=== PATIENT | male | born 1955 | race Caucasian/White ===

== ENCOUNTER 2017-03-30 19:43 | Inpatient (IN) | payer MEDICARE, BC ==
--- NOTE | 2017-03-30 21:24 | ED ---
General Adult HPI <Antonio Bhatti - Last Filed: 03/30/17 23:10> - General Source: patient, RN notes reviewed Mode of arrival: wheelchair Limitations: no limitations <Chuck Barker - Last Filed: 03/30/17 23:22> - General Chief complaint: Dizziness Stated complaint: Fall/double vision/left eye drooping Time Seen by Provider: 03/30/17 20:55 - History of Present Illness Initial comments: This is a 62-year-old male presents emergency Department with chief complaint of headache, dizziness and eye drooping. Patient states that he had an episode of dizziness for one week ago which she states he twisted his ankle but states it is not bothersome at this time. He complains of left-sided headache and states that his told him that his eye seems to be drooping on the left. Patient states that he has double vision at times he states he is looking at his truck earlier today and states he saw 2 of them. Patient states that he has multiple or abilities including renal failure with dialysis, diabetes, coronary disease, prior bypass with aortic valve replacement. Patient states she has no weakness of extremities. Patient states he did go to dialysis today. Patient has no history of CVA or TIA. (Chuck Barker) - Related Data Home Medications Medication Instructions Recorded Confirmed Atorvastatin Calcium [Lipitor] 20 mg PO HS 03/30/17 03/30/17 Carvedilol [Coreg] 12.5 mg PO BID 03/30/17 03/30/17 Cinacalcet [Sensipar] 30 mg PO HS 03/30/17 03/30/17 Clopidogrel [Plavix] 75 mg PO DAILY 03/30/17 03/30/17 Furosemide [Lasix] 40 mg PO DAILY 03/30/17 03/30/17 INSULIN LISPRO (For Pump) [humaLOG See Protocol SQ-PUMP CONTINUOUS 03/30/17 (For Pump)] Isosorbide Mononitrate [Isosorbide 60 mg PO DAILY 03/30/17 03/30/17 Mononitrate ER] Lisinopril [Zestril] 10 mg PO HS 03/30/17 03/30/17 Multivitamins, Thera [Multivitamin 1 tab PO DAILY 03/30/17 03/30/17 (formulary)] Ranolazine [Ranexa] 1,000 mg PO DAILY 03/30/17 03/30/17 Sevelamer [Renvela] 2,400 mg PO DAILY PRN 03/30/17 03/30/17 Sevelamer [Renvela] 3,200 mg PO AC-TID 03/30/17 03/30/17 Allergies Allergy/AdvReac Type Severity Reaction Status Date / Time Penicillins Allergy Unknown Verified 03/30/17 20:36 Childhood Review of Systems ROS Other: All systems not noted in ROS Statement are negative. <Antonio Bhatti - Last Filed: 03/30/17 23:10> ROS Other: All systems not noted in ROS Statement are negative. <Chuck Barker - Last Filed: 03/30/17 23:22> ROS Statement: Those systems with pertinent positive or pertinent negative responses have been documented in the HPI. Past Medical History Past Medical History: Diabetes Mellitus, Renal Disease History of Any Multi-Drug Resistant Organisms: None Reported Past Surgical History: Coronary Bypass/CABG Additional Past Surgical History / Comment(s): dialysis, heart valve replacement. Past Psychological History: No Psychological Hx Reported Smoking Status: Former smoker Past Alcohol Use History: None Reported Past Drug Use History: None Reported <Chuck Barker - Last Filed: 03/30/17 23:22> General Exam Limitations: no limitations General appearance: alert, in no apparent distress Head exam: Present: atraumatic, normocephalic, normal inspection Eye exam: Present: normal appearance, PERRL, EOMI, other (lateral gaze with occular movement when looking down). Absent: scleral icterus, conjunctival injection, periorbital swelling ENT exam: Present: normal exam, normal oropharynx, mucous membranes moist, TM's normal bilaterally Neck exam: Present: normal inspection, full ROM. Absent: tenderness, meningismus, lymphadenopathy Respiratory exam: Present: normal lung sounds bilaterally. Absent: respiratory distress, wheezes, rales, rhonchi, stridor Cardiovascular Exam: Present: regular rate, normal rhythm, normal heart sounds. Absent: systolic murmur, diastolic murmur, rubs, gallop, clicks GI/Abdominal exam: Present: soft, normal bowel sounds. Absent: distended, tenderness, guarding, rebound, rigid Neurological exam: Present: alert, oriented X3, CN II-XII intact, reflexes normal. Absent: motor sensory deficit Skin exam: Present: warm, dry, intact, normal color. Absent: rash <Chuck Barker - Last Filed: 03/30/17 23:22> EKG Findings - EKG Comments: EKG Findings:: EKG performed at 22:30 sinus rhythm with first-degree AV block, left axis deviation rate of 67 UT interval 242 QS duration 104 QT/QTC 410/433 <Chuck Barker - Last Filed: 03/30/17 23:22> Medical Decision Making - Lab Data Result diagrams: 03/30/17 21:20 03/30/17 21:20 <Antonio Bhatti - Last Filed: 03/30/17 23:10> - Lab Data Result diagrams: 03/30/17 21:20 03/30/17 21:20 <Chuck Barker - Last Filed: 03/30/17 23:22> - Medical Decision Making Patient reevaluated by myself, Dr. Bhatti. Patient had an episode of dizziness 1 week ago. Patient did have left-sided headache 3 days ago that has been moderate to severe. Patient started having blurred vision 2 days ago. Patient does have mild left eyelid droop on examination. Patient has difficulty with medial gaze of the left eye on examination. Computed tomography scan revealed no acute process. Case was discussed in detail with Dr. Ng from some physician who will admit for hospital call. He will come evaluate patient. ( Antonio Bhatti) - Lab Data Lab Results 03/30/17 03/30/17 03/30/17 Range/Units 21:20 21:20 21:20 WBC 4.2 (3.8-10.6) k/uL RBC 3.61 L (4.30-5.90) m/uL Hgb 11.4 L (13.0-17.5) gm/dL Hct 33.1 L (39.0-53.0) % MCV 91.8 (80.0-100.0) fL MCH 31.5 (25.0-35.0) pg MCHC 34.3 (31.0-37.0) g/dL RDW 15.0 (11.5-15.5) % Plt Count 108 L (150-450) k/uL Neutrophils % 63 % Lymphocytes % 23 % Monocytes % 6 % Eosinophils % 5 % Basophils % 0 % Neutrophils # 2.7 (1.3-7.7) k/uL Lymphocytes # 1.0 (1.0-4.8) k/uL Monocytes # 0.3 (0-1.0) k/uL Eosinophils # 0.2 (0-0.7) k/uL Basophils # 0.0 (0-0.2) k/uL Poikilocytosis Slight PT (9.0-12.0) sec INR (<1.2) APTT (22.0-30.0) sec Sodium 139 (137-145) mmol/L Potassium 3.9 (3.5-5.1) mmol/L Chloride 97 L (98-107) mmol/L Carbon Dioxide 31 H (22-30) mmol/L Anion Gap 11 mmol/L BUN 26 H (9-20) mg/dL Creatinine 4.60 H (0.66-1.25) mg/dL Est GFR (MDRD) Af Amer 16 (>60 ml/min/1.73 sqM) Est GFR (MDRD) Non-Af 13 (>60 ml/min/1.73 sqM) Glucose 222 H (74-99) mg/dL Calcium 10.0 (8.4-10.2) mg/dL Total Bilirubin 0.6 (0.2-1.3) mg/dL AST 21 (17-59) U/L ALT 30 (21-72) U/L Alkaline Phosphatase 107 (38-126) U/L Total Creatine Kinase 105 (55-170) U/L CK-MB (CK-2) 2.4 (0.0-2.4) ng/mL CK-MB (CK-2) Rel Index 2.3 Total Protein 6.1 L (6.3-8.2) g/dL Albumin 3.7 (3.5-5.0) g/dL 03/30/17 Range/Units 21:20 WBC (3.8-10.6) k/uL RBC (4.30-5.90) m/uL Hgb (13.0-17.5) gm/dL Hct (39.0-53.0) % MCV (80.0-100.0) fL MCH (25.0-35.0) pg MCHC (31.0-37.0) g/dL RDW (11.5-15.5) % Plt Count (150-450) k/uL Neutrophils % % Lymphocytes % % Monocytes % % Eosinophils % % Basophils % % Neutrophils # (1.3-7.7) k/uL Lymphocytes # (1.0-4.8) k/uL Monocytes # (0-1.0) k/uL Eosinophils # (0-0.7) k/uL Basophils # (0-0.2) k/uL Poikilocytosis PT 10.5 (9.0-12.0) sec INR 1.0 (<1.2) APTT 23.5 (22.0-30.0) sec Sodium (137-145) mmol/L Potassium (3.5-5.1) mmol/L Chloride (98-107) mmol/L Carbon Dioxide (22-30) mmol/L Anion Gap mmol/L BUN (9-20) mg/dL Creatinine (0.66-1.25) mg/dL Est GFR (MDRD) Af Amer (>60 ml/min/1.73 sqM) Est GFR (MDRD) Non-Af (>60 ml/min/1.73 sqM) Glucose (74-99) mg/dL Calcium (8.4-10.2) mg/dL Total Bilirubin (0.2-1.3) mg/dL AST (17-59) U/L ALT (21-72) U/L Alkaline Phosphatase (38-126) U/L Total Creatine Kinase (55-170) U/L CK-MB (CK-2) (0.0-2.4) ng/mL CK-MB (CK-2) Rel Index Total Protein (6.3-8.2) g/dL Albumin (3.5-5.0) g/dL Disposition <Antonio Bhatti - Last Filed: 03/30/17 23:10> <Chuck Barker - Last Filed: 03/30/17 23:22> Clinical Impression: Ocular palsy of left eye, Headache, Dizziness Disposition: ADMITTED IP TO THIS [facility] Condition: Fair Referrals: Nonstaff,Physician [Primary Care Provider] - 1-2 days
[2017-03-30 21:55] LABS: Basophils % (A) 0 %; CH 32.6; CHCM 35.7; Eosinophils # (A) 0.2 k/uL (0-0.7); Eosinophils % (A) 5 %; HCT 33.1 % (39.0-53.0); HDW 3.59; HGB 11.4 gm/dL (13.0-17.5); Luc # (Auto) 0.09; Luc % (Auto) 2; Lymphocytes % (A) 23 %; MCH 31.5 pg (25.0-35.0); MCHC 34.3 g/dL (31.0-37.0); MCV 91.8 fL (80.0-100.0); Mean Platelet Volume 7.5; Monocytes # (A) 0.3 k/uL (0-1.0); Monocytes % (A) 6 %; Neutrophils # (A) 2.7 k/uL (1.3-7.7); Neutrophils % (A) 63 %; Poikilocytosis Slight; RBC 3.61 m/uL (4.30-5.90); WBC 4.2 k/uL (3.8-10.6); WBC (Perox) 4.28
[2017-03-30 22:04] LABS: Partial Thromboplastin Time 23.5 sec (22.0-30.0); Prothrombin Time 10.5 sec (9.0-12.0)
--- NOTE | 2017-03-30 22:04 | CT ---
EXAMINATION TYPE: CT brain wo con DATE OF EXAM: 03/30/2017 COMPARISON: NONE HISTORY: Unsteady gait, double vision to left eye and left eye swelling x 3 days[address] No known injury. CT DLP: 1061.30 mGycm Automated exposure control for dose reduction was used. FINDINGS: Ventricles have normal size. There is no mass effect nor midline shift. There is no sign of intracran ial hemorrhage. The calvarium is intact. There is significant calcification in the carotid arteries. IMPRESSION: MILD ATROPHY. OTHERWISE NEGATIVE CT SCAN OF THE BRAIN. NO EVIDENCE OF AN ORBITAL MASS. THERE IS CALCI FICATION IN THE SUBCUTANEOUS TISSUES CONSISTENT WITH SIGNIFICANT ATHEROSCLEROTIC VASCULAR DISEASE.
--- NOTE | 2017-03-30 22:05 | XR ---
EXAMINATION TYPE: XR chest 2V DATE OF EXAM: 03/30/2017 COMPARISON: NONE HISTORY: Altered mental status TECHNIQUE: Frontal and lateral views of the chest are obtained. FINDINGS: There is no heart failure nor confluent pneumonic infiltrate. Costophrenic angles are stu r. Thoracic aorta is atheromatous. IMPRESSION: No active cardiopulmonary disease. Atheromatous aorta.
[2017-03-30] MEDS ORDERED: ONDANSETRON 4 MG/2 ML VIAL IVP STA (22:09)
[2017-03-30] MEDS ORDERED: MORPHINE SULFATE 2 MG/ML SYRINGE IVP ONE (22:09)
[2017-03-30] MEDS ORDERED: RX INFO: IV CONTRAST WAS GIVEN 1 EACH MISC MISCELLANE PRN (22:09)
[2017-03-30 22:37] LABS: Potassium 3.9 mmol/L (3.5-5.1); Total Bilirubin 0.6 mg/dL (0.2-1.3); Total Protein 6.1 g/dL (6.3-8.2)
[2017-03-30 22:45] LABS: Creatine Kinase MB 2.4 ng/mL (0.0-2.4)
[2017-03-30] MEDS ORDERED: NALOXONE 0.4 MG/ML 1 ML VIAL IV PRN (23:22)
[2017-03-31] MEDS: MORPHINE SULFATE 2 MG/ML SYRINGE IVP PRN ×6 (00:19→23:47)
--- NOTE | 2017-03-31 00:21 | P.HPIM ---
History of Present Illness H&P Date: 03/30/17 Chief Complaint: headache This patient is 62 years old male with significant history of end-stage renal disease on hemodialysis, the patient came to the emergency room complaining of 3 days history of headaches he points to the left temporal region, and if his pressure behind the L eye, associated also with dizziness in fact the dizziness started prior according to his about 2 weeks ago last week he had a fall on his porch he denies any head trauma but soon after that he started developing the symptoms Review of Systems Constitutional: Patient reports no fever, no chills, no weight changes, no change in appetite Eyes: Patient reports double vision IN left eye, no visual changes, some drooping noted ENT: Patient reports no rhinorrhea, no post nasal drip, no sore throat Cardiovascular: Patient reports no chest, no edema, no palpitations, has syncope last week no orthopnea, no paroxysmal nocturnal dyspnea. Respiratory: Patient reports no dyspnea, no cough, no wheeze Gastrointestinal: Patient reports no nausea, no vomiting, no constipation, no diarrhea Genitourinary: Patient reports no dysuria, no urinary frequency, no hematuria. Musculoskeletal: Patient reports no unusual joint pain, no joint swelling or weakness. Patient reports no muscular pain. Psychiatric: Patient reports no changes in mood, no sleeping problems. Patient reports no changes in memory. Endocrine: Patient reports no thirst, no polyuria, no cold intolerance, no heat intolerance. Neurological: Patient reports no unusual paresthesias, no seizures, no paresis , no paralysis, has peristent headache. Heme/Lymphatic: Patient reports no easy bruising, no bleeding tendency, no lymphadenopathy. Allergic/ Immunologic: Patient reports no recent allergic reactions or immunologic history. Skin: Patient reports no rashes or unusual lesions. Past Medical History Past Medical History: Coronary Artery Disease (CAD), Diabetes Mellitus, Hypertension, Renal Disease Additional Past Medical History / Comment(s): ESRD ON HD MWF History of Any Multi-Drug Resistant Organisms: None Reported Past Surgical History: Coronary Bypass/CABG Additional Past Surgical History / Comment(s): AVF , heart valve replacement. Past Psychological History: No Psychological Hx Reported Smoking Status: Former smoker Past Alcohol Use History: None Reported Past Drug Use History: None Reported Medications and Allergies Home Medications Medication Instructions Recorded Confirmed Type Atorvastatin Calcium [Lipitor] 20 mg PO HS 03/30/17 03/30/17 History Carvedilol [Coreg] 12.5 mg PO BID 03/30/17 03/30/17 History Cinacalcet [Sensipar] 30 mg PO HS 03/30/17 03/30/17 History Clopidogrel [Plavix] 75 mg PO DAILY 03/30/17 03/30/17 History Furosemide [Lasix] 40 mg PO DAILY 03/30/17 03/30/17 History INSULIN LISPRO (For Pump) [humaLOG See Protocol SQ-PUMP CONTINUOUS 03/30/17 History (For Pump)] Isosorbide Mononitrate [Isosorbide 60 mg PO DAILY 03/30/17 03/30/17 History Mononitrate ER] Lisinopril [Zestril] 10 mg PO HS 03/30/17 03/30/17 History Multivitamins, Thera [Multivitamin 1 tab PO DAILY 03/30/17 03/30/17 History (formulary)] Ranolazine [Ranexa] 1,000 mg PO DAILY 03/30/17 03/30/17 History Sevelamer [Renvela] 2,400 mg PO DAILY PRN 03/30/17 03/30/17 History Sevelamer [Renvela] 3,200 mg PO AC-TID 03/30/17 03/30/17 History Allergies Allergy/AdvReac Type Severity Reaction Status Date / Time Penicillins Allergy Unknown Verified 03/30/17 20:36 Childhood Physical Exam Vitals: Vital Signs Temp Pulse Resp BP Pulse Ox 03/30/17 23:24 69 16 169/69 96 03/30/17 22:25 70 20 156/71 96 03/30/17 19:56 99.3 F 76 18 173/74 98 Intake and Output 03/30/17 03/30/17 03/31/17 14:59 22:59 06:59 Other: Weight 99.79 kg Patient Weight 03/31/17 06:59 Weight 99.79 kg - Constitutional General appearance: average body habitus, mild distress - EENT Eyes: no EOMI, no photophobia, ptosis Ears: bilateral: normal - Neck Neck: no normal ROM Carotids: bilateral: upstroke normal Thyroid: bilateral: normal size - Respiratory Respiratory: bilateral: CTA, rales, rhonchi, wheezing - Cardiovascular Rhythm: regular Heart sounds: normal: S1, S2 Abnormal Heart Sounds: S3 Gallop, S4 Gallop - Gastrointestinal General gastrointestinal: no distended, normal bowel sounds, no rigid, soft, no tenderness - Integumentary Integumentary: no cyanotic, no flushed, no jaundiced, normal - Musculoskeletal Musculoskeletal: gait normal, strength equal bilaterally - Psychiatric Psychiatric: A&O x's 3, appropriate affect, intact judgment & insight (3D CN palsy otherwise non focal ) Results CBC & Chem 7: 03/30/17 21:20 03/30/17 21:20 Labs: Abnormal Lab Results - Last 24 Hours (Table) 03/30/17 03/30/17 03/30/17 Range/Units 21:20 21:20 21:20 RBC 3.61 L (4.30-5.90) m/uL Hgb 11.4 L (13.0-17.5) gm/dL Hct 33.1 L (39.0-53.0) % Plt Count 108 L (150-450) k/uL Chloride 97 L (98-107) mmol/L Carbon Dioxide 31 H (22-30) mmol/L BUN 26 H (9-20) mg/dL Creatinine 4.60 H (0.66-1.25) mg/dL Glucose 222 H (74-99) mg/dL Troponin I 0.085 H* (0.000-0.034) ng/mL Total Protein 6.1 L (6.3-8.2) g/dL CT Scan - head: report reviewed Assessment and Plan (1) Headache Narrative/Plan: Likely part of postconcussion headaches will treat with IV Dilaudid due to poor control with oral agents counseled the patient Status: Acute (2) Ocular palsy of left eye Narrative/Plan: I WILL obtain neurology consultation and ordered MRI Status: Acute (3) Dizziness Narrative/Plan: Also possible postconcussion syndrome however in view of the neurological findings MRI is needed to rule out posterior fossa stroke Status: Acute (4) ESRD (end stage renal disease) on dialysis Narrative/Plan: End-stage renal disease is chronic is on dialysis Sunday will consult nephrology the patient has his dialysis day Status: Acute (5) Diabetes mellitus Narrative/Plan: We'll continue patient's insulin pump monitor his sugars Status: Acute Time with Patient: Greater than 30
[2017-03-31 01:44] VITALS: BMI 32.5
[2017-03-31] MEDS ORDERED: INSULIN LISPRO (humaLOG) 300 UNIT/3 ML VIAL SQ PRN (05:57)
[2017-03-31] MEDS ORDERED: INSPUCOR MISCELLANE PRN (05:57)
[2017-03-31] MEDS ORDERED: INSULIN PUMP BASAL RATES 1 EACH MISC MISCELLANE PRN (05:57)
[2017-03-31 06:13] LABS: Glucose,Whole Blood 180 mg/dL (75-99)
[2017-03-31] MEDS: CARVEDILOL 12.5 MG TAB PO SCH ×2 (06:27→17:30)
[2017-03-31] MEDS: SEVELAMER 800 MG TAB PO SCH ×3 (06:27→17:30)
[2017-03-31] MEDS: CLOPIDOGREL 75 MG TAB PO SCH (07:52)
[2017-03-31] MEDS: ISOSORBIDE MONONITRATE ER 60 MG TAB.ER.24H PO SCH (07:52)
[2017-03-31] MEDS: MULTIVITAMINS, THERA 1 EACH TAB PO SCH (07:52)
[2017-03-31] MEDS: FUROSEMIDE 40 MG TAB PO SCH (07:52)
[2017-03-31] MEDS: RANOLAZINE 500 MG TAB.ER.12H PO SCH (07:52)
[2017-03-31 14:27] LABS: Hemoglobin A1C 6.1 % (4.2-6.1)
--- NOTE | 2017-03-31 16:58 | P.PN ---
Subjective Principal diagnosis: headache Patient is a 62-year-old male with a history of type 1 diabetes mellitus, end-stage renal disease, and hypertension who presented with complaints of left eye drooping and headache. Patient states that his left eye started drooping several days ago. He states he has always had a lazy left eye. He complains of double vision in that left eye. He describes his pain as an outward pressure behind his eye. He denies any nausea, vomiting, or chest pain. His headache pain is improved with morphine. Objective - Vital Signs Vital signs: Vital Signs Temp 97.3 F L 03/31/17 15:58 Pulse 68 03/31/17 15:58 Resp 16 03/31/17 15:58 BP 119/58 03/31/17 15:58 Pulse Ox 97 03/31/17 15:58 Intake & Output 03/30/17 03/31/17 03/31/17 18:59 06:59 18:59 Intake Total 420 Output Total 200 Balance -200 420 Weight 101.3 kg Intake: Oral 420 Output: Urine 200 Other: Voiding Method Urinal Urinal # Voids 0 # Bowel Movements 0 - Exam General: non toxic, no distress, appears at stated age Derm: no rashes, no lesions Head: atraumatic, normocephalic, symmetric Eyes: Pupils equal round reactive to light, left eye with disconjugate gaze- unable to fully adduct the eye, ptosis of the left eye Eyes: EOMI, no lid lag, anicteric sclera ENT: no post nasal drip, no thrush Mouth: no lip lesion, mucus membranes moist Cardiovascular: S1S2 reg, no murmur, positive posterior tibial pulse bilateral, Lungs: CTA bilateral, no rhonchi, no rales , no accessory muscle use Abdominal: soft, nontender to palpation, no guarding, no appreciable organomegaly Ext: no gross muscle atrophy, no edema, no contractures Neuro: CN II-XI grossly intact, no focal neuro deficits Psych: Alert, oriented, appropriate affect - Labs CBC & Chem 7: 03/30/17 21:20 03/30/17 21:20 Labs: Abnormal Lab Results - Last 24 Hours (Table) 03/30/17 03/30/17 03/30/17 Range/Units 21:20 21:20 21:20 RBC 3.61 L (4.30-5.90) m/uL Hgb 11.4 L (13.0-17.5) gm/dL Hct 33.1 L (39.0-53.0) % Plt Count 108 L (150-450) k/uL ESR (0-15) mm/hr Chloride 97 L (98-107) mmol/L Carbon Dioxide 31 H (22-30) mmol/L BUN 26 H (9-20) mg/dL Creatinine 4.60 H (0.66-1.25) mg/dL Glucose 222 H (74-99) mg/dL POC Glucose (mg/dL) (75-99) mg/dL Troponin I 0.085 H* (0.000-0.034) ng/mL C-Reactive Protein (<10.0) mg/L Total Protein 6.1 L (6.3-8.2) g/dL 03/31/17 03/31/17 03/31/17 Range/Units 06:10 10:06 10:07 RBC (4.30-5.90) m/uL Hgb (13.0-17.5) gm/dL Hct (39.0-53.0) % Plt Count (150-450) k/uL ESR 30 H (0-15) mm/hr Chloride (98-107) mmol/L Carbon Dioxide (22-30) mmol/L BUN (9-20) mg/dL Creatinine (0.66-1.25) mg/dL Glucose (74-99) mg/dL POC Glucose (mg/dL) 180 H (75-99) mg/dL Troponin I (0.000-0.034) ng/mL C-Reactive Protein 13.3 H (<10.0) mg/L Total Protein (6.3-8.2) g/dL Assessment and Plan Plan: #Left third cranial nerve palsy-CT brain is negative, attempted to get MRI brain but this was not performed today, will consult nephrology and plan for CT head with and without contrast, will ask ophthalmology to evaluate patient. ESR and CRP elevated but no meningeal signs, or signs of infection. #End-stage renal disease on hemodialysis-consult nephrology #Diabetes mellitus [id number] home insulin pump #Coronary artery disease-continue statin, #Hypertension, controlled-continue current regimen, follow blood pressures DVT prophylaxis: Early ambulation Discussed with: Patient , Nursing Anticipated discharge: 24-[address]: home A total of 35 minutes was spent on the care of this complex patient more than 50 % of the time was spent in counseling and care coordination.
[2017-03-31 17:09] LABS: Glucose,Whole Blood 144 mg/dL (75-99)
[2017-03-31] MEDS ORDERED: RX INFO: IV CONTRAST WAS GIVEN 1 EACH MISC MISCELLANE PRN (17:38)
[2017-03-31] MEDS: CINACALCET 30 MG TAB PO SCH (19:54)
[2017-03-31] MEDS: ONDANSETRON 4 MG/2 ML VIAL IVP PRN (19:54)
[2017-03-31] MEDS: LISINOPRIL 10 MG TAB PO SCH (19:54)
[2017-03-31] MEDS: ATORVASTATIN 20 MG TAB PO SCH (19:54)
--- NOTE | 2017-03-31 20:28 | CT ---
EXAMINATION TYPE: CT orbits wo con DATE OF EXAM: 03/31/2017 COMPARISON: CT brain 03/30/2017 HISTORY: Left sided eye swelling and visual disturbance CT DLP: 410.1 mGycm Automated exposure control for dose reduction was used. FINDINGS: Note is made of a low-density elliptical area within the left temporal region. Series 9 image 41. Thi s is low density in the range of -80 is likely a small lipoma. Significant skin thickening is not identified. No suspicious collections are identified. The globes are symmetrical. Extraocular muscles are normal. Cranial nerve appears normal. Intraconal and extraconal fat is unremarkable. No subcutaneous abnormal collection is evident. Sella and suprasellar region is visualized appears no rmal. Paranasal sinuses are clear. Optic chiasm appears unremarkable on these images. Real-time observation was performed at the time of acquisition. Images were reviewed with the referri ng physician. The case was discussed. If symptoms should worsen or clinical finding should change, co ntrast study or MRI could be performed. IMPRESSION: NO SUSPICIOUS POST SEPTAL CELLULITIS EVIDENT. NO ABSCESS FORMATION IS IDENTIFIED.
--- NOTE | 2017-03-31 20:48 | P.CON ---
Consult Note - . Consult date: 03/31/17 Assessment/Plan:: 62 y/o male with a history of amblyopia left eye, who began having symptoms of poorer than normal vision on presentation to the ER. There was associated discomfort in the left temporal region and above the left eye. He had noticed a moderate ptosis of the left lid as well. This insulin dependent diabetic ( A-1- C 5.8) states he had some patching as a child, but denies surgery. He also denies any hidden infections in the past. There was apparently a history of cardiac valve surgery which was associate with a significant infection. He had an eye examination 1 month ago which was unremarkable, but required an adjustment ~ 1 month after receiving new glasses. There was no noted problem with eyelid at that time. He is a hypermetropic patient with a heavy correction , but admits limited vision in the left eye. He also states he's had laser surgery for diabetes, but cannot recall in which eye. He has had some scatter laser treatment, 4 years ago. Va w/ correction 20/20 OD, 20/200 +1 OS using near card. Pupils: no APD, normal direct and consensual response CF: normal EOM: left XT ~ 30 PD. however there is full movement on ductions on each eye. ( can cross the midline, left ) External: ptosis noted left eye, normal right. Mild erythema left eye with tenderness, without focal lesion. Lid fissures 10 mm OD, 7 mm OS MRD: +5 mm OD, +1 mm OS Levator: 18 mm OD, 17 mm OS Corneal: clear OU AC: D&Q OU Iris: no pathology, OU round lens: trace NS Vit: clear optic nerve: S/F P C:D 0.40 OD, O.50 OS Mac: +FLR with scattered NPDR changes and no CME noted OU. 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 There is a moderate tenderness in the eyelid area, but does not demonstrate at this time an outright 3rd nerve palsy. There is full movement without evidence of restriction, no APD, no field loss. P: recommend starting on IV antibiotic moxifloxacin, assuming this is a preseptal cellulitis and monitor progress. Will follow along while in hospital.
[2017-03-31 21:01] LABS: Glucose,Whole Blood 140 mg/dL (75-99)
[2017-03-31] MEDS: LEVOFLOXACIN 500MG-D5W PMX 500 MG in DEXTROSE/WATER 1 100ML.BAG IVPB SCH (23:47)
[2017-04-01 06:03] LABS: Glucose,Whole Blood 180 mg/dL (75-99)
[2017-04-01] MEDS: SEVELAMER 800 MG TAB PO SCH ×3 (06:42→18:10)
[2017-04-01] MEDS: CARVEDILOL 12.5 MG TAB PO SCH ×2 (06:42→18:10)
[2017-04-01] MEDS: MULTIVITAMINS, THERA 1 EACH TAB PO SCH (08:14)
[2017-04-01] MEDS: MORPHINE SULFATE 2 MG/ML SYRINGE IVP PRN ×4 (08:14→20:13)
[2017-04-01] MEDS: CLOPIDOGREL 75 MG TAB PO SCH (08:14)
[2017-04-01] MEDS: ISOSORBIDE MONONITRATE ER 60 MG TAB.ER.24H PO SCH (08:14)
[2017-04-01] MEDS: FUROSEMIDE 40 MG TAB PO SCH (08:14)
[2017-04-01] MEDS: RANOLAZINE 500 MG TAB.ER.12H PO SCH (08:14)
--- NOTE | 2017-04-01 09:21 | CONS ---
REASON FOR CONSULTATION: End stage renal disease. HISTORY OF PRESENT ILLNESS: The patient is a 62-year-old male with history of end stage renal disease for about five years on hemodialysis at the [facility] on a Sunday, Sunday, Sunday schedule. The patient was admitted to the hospital with history of double vision and pain in his left eye and severe headache behind the eye which had been doing on for about a week or so. The patient stated that he had double vision and he still continued to drive to the dialysis unit. The headache got extremely worse and that is why he came into the hospital. The patient has been evaluated by ophthalmology and neurology. He is scheduled for an MRI tomorrow. He is started on IV antibiotics for preseptal cellulitis. The patient did have CT of his head and orbits which shows no abscess formation. Currently the headache is controlled with morphine. PAST MEDICAL HISTORY: Hypertension, end stage renal disease, CKD bone mineral disorder, Type 2 diabetes, coronary artery disease, valvular heart disease. Past surgical history: Aortic valve replacement, AV fistula. Coronary artery bypass surgery. SOCIAL HISTORY: The patient is a former smoker. No history of drug abuse or alcohol use. REVIEW OF SYSTEMS: As per HPI. Other systems negative. There is no history of fever, nausea or vomiting. On examination, the patient is currently comfortable, awake, alert and oriented times three. HEENT shows left eye is currently closed. There is some tenderness around the eye. No discharge is noted. No significant erythema is noted. Examination of the heart S1, S2. Examination of the lungs bilateral breath sounds are heard. Abdomen soft, nontender. Examination of the lower extremities shows trace edema bilaterally. DOCTOR PODIATRIC MEDICINE: Otherwise grossly intact. The patient does have double vision on looking far on the left eye. Labs show C-reactive protein 13.3, potassium 3.9, sodium 139, hemoglobin 11.4. ASSESSMENT: 1. End stage renal disease on hemodialysis on a Sunday, Sunday, Sunday scheduled via right arm AV fistula. The patient will be dialyzed tomorrow after his MRI. 2. Left sided headache with severe pain and diplopia in the left eye currently maintained on antibiotics and scheduled for MRI which will be done tomorrow. No cavernous sinus thrombosis noted on the CT scan of the orbits. 3. Diabetes. 4. Coronary artery disease status post coronary artery bypass surgery. 5. Chronic kidney disease bone mineral disorder. 6. Valvular heart disease status post aortic valve replacement. PLAN: Hemodialysis tomorrow after the MRI. Continue pain control and IV antibiotics. Thank you for this consultation. I will continue to follow the patient with you during this hospitalization. AISHA
[2017-04-01] MEDS: ONDANSETRON 4 MG/2 ML VIAL IVP PRN ×2 (11:19→22:44)
--- NOTE | 2017-04-01 11:35 | P.CON ---
Consult Note - . Consult date: 04/01/17 Assessment/Plan:: 62 y/o male with diplopia and ptotic eyelid left side. Has received 1 does of levofloxacin ~12 hours ago so far without relief. He continues to have pain on left side of head ~ 8/10 crescendoing to "10.5" /10. CT no revealing anything at this stage. awaiting MRI tomorrow. Va w/correction 20/20 OD, 20/40+3 OS EOM left XT full ROM, no nystagmus noted CF full OU Pupils no APD IOP 12 mm Hg OD, 15 mm Hg OS Ext mild left eylid swelling faint erythema? with ptosis some focal tenderness in the upper outer quadrant with palpation, no focality noted Con white/quiet Cornea Clear AC clear A: Preseptal cellulitis/ptosis presumptive on antibiotics without any noted relief at this time Diplopia without subject without nystagmus, and subjectively denies dizziness , continues to experience pain on left side. No focal neurological signs noted. P: awaiting MRI should reveal more information than the limited CT's recently performed. Will continue to follow.
[2017-04-01 12:31] LABS: Glucose,Whole Blood 165 mg/dL (75-99)
--- NOTE | 2017-04-01 12:31 | P.CNNES ---
History of Present Illness Consult date: 03/31/17 Reason for Consult: Patient admitted with ocular nerve impairment and left eye swelling. History of Present Illness: This patient is a 62-year-old right-handed white male who was in his usual state of health until a few days ago. Patient states that 3 days back prior to his admission to hospital he had developed some diplopia and left-sided headache pain. Patient has a rather complex past medical history which includes end-stage renal disease for which she is on hemodialysis. He also has diabetes mellitus and coronary artery bypass grafting history. The patient states his symptoms began about 3 days ago. He was having double vision that seem to wax and wane. He underwent GI exam about a month ago and had a normal exam at that time. Patient also states that he underwent a aortic valve replacement about a year ago at [facility]. He also has undergone 2 vessel CABG and since that surgery has been taking combination Plavix and aspirin. Due to his 3 day history of headache pain he decided to come to the emergency room at [facility] for further evaluation. He was seen in the ER by physician assistant golf course superintendent Chuck Barker who ordered a computed tomography scan of the brain. The patient was noted to have left eye ocular muscle weakness. CAT scan of the brain to monitor in this light revealed mild atrophy. CAT scan was negative for any acute stroke or hemorrhage. There was no evidence for an orbital mass involving the orbits. The patient essentially admitted to the hospital. He continues to have left-sided headache pain. This is mostly in the bitemporal area. He underwent some laboratory testing and his sedimentation rate was 30.0. His CRP is 13.3. He also has a history of underlying diabetes mellitus and his hemoglobin A1c on admission was 6.1. Patient continues to have mostly mild to moderate degree of headache pain. He is currently being treated symptomatically with Dilaudid. Patient was seen on ophthalmology consultation with Dr. Live today. Dr. Live's findings indicate a left preseptal cellulitis. There was moderate degree of tenderness in the left eyelid area. Patient did not demonstrate third nerve palsy on his examination. There was no evidence of APD or field loss. The patient was started on IV antibiotic therapy with moxifloxacin. He will require close ophthalmological follow-up. The patient states he is on end-stage renal disease dialysis treatment. He undergoes dialysis 3 days a week. He states his diabetes has been under fairly good control. His hemoglobin A1c on admission was 6.1. The patient states his headaches have improved since admission to the hospital. Due to his complex history and multiple medical findings he is now admitted to the hospital for further evaluation. Neurology has been consulted for further evaluation and recommendations. Review of Systems Constitutional: Denies chills, Denies fever Eyes: denies blurred vision, denies pain Ears, nose, mouth and throat: Denies headache, Denies sore throat Cardiovascular: Denies chest pain, Denies shortness of breath Respiratory: Denies cough Gastrointestinal: Denies abdominal pain, Denies diarrhea, Denies nausea, Denies vomiting Musculoskeletal: Denies myalgias Integumentary: Denies pruritus, Denies rash Neurological: Denies numbness, Denies weakness Psychiatric: Denies anxiety, Denies depression Endocrine: Denies fatigue, Denies weight change Past Medical History Past Medical History: Coronary Artery Disease (CAD), Heart Failure, Diabetes Mellitus, Deep Vein Thrombosis (DVT), Hypertension, Renal Disease, Thyroid Disorder Additional Past Medical History / Comment(s): ESRD ON HD MWF History of Any Multi-Drug Resistant Organisms: None Reported Past Surgical History: Coronary Bypass/CABG Additional Past Surgical History / Comment(s): AVF , Aortic Valve replacement ( [place]), 2 CABG total 2 vessel each time. Past Anesthesia/Blood Transfusion Reactions: No Reported Reaction Past Psychological History: No Psychological Hx Reported Smoking Status: Former smoker Past Alcohol Use History: None Reported Past Drug Use History: None Reported - Past Family History Mother Family Medical History: Coronary Artery Disease (CAD), Myocardial Infarction (CT ), Renal Disease Medications and Allergies Home Medications Medication Instructions Recorded Confirmed Type Atorvastatin Calcium [Lipitor] 20 mg PO HS 03/30/17 03/30/17 History Carvedilol [Coreg] 12.5 mg PO BID 03/30/17 03/30/17 History Cinacalcet [Sensipar] 30 mg PO HS 03/30/17 03/30/17 History Clopidogrel [Plavix] 75 mg PO DAILY 03/30/17 03/30/17 History Furosemide [Lasix] 40 mg PO DAILY 03/30/17 03/30/17 History INSULIN LISPRO (For Pump) [humaLOG See Protocol SQ-PUMP CONTINUOUS 03/30/17 History (For Pump)] Isosorbide Mononitrate [Isosorbide 60 mg PO DAILY 03/30/17 03/30/17 History Mononitrate ER] Lisinopril [Zestril] 10 mg PO HS 03/30/17 03/30/17 History Multivitamins, Thera [Multivitamin 1 tab PO DAILY 03/30/17 03/30/17 History (formulary)] Ranolazine [Ranexa] 1,000 mg PO DAILY 03/30/17 03/30/17 History Sevelamer [Renvela] 2,400 mg PO DAILY PRN 03/30/17 03/30/17 History Sevelamer [Renvela] 3,200 mg PO AC-TID 03/30/17 03/30/17 History Allergies Allergy/AdvReac Type Severity Reaction Status Date / Time Penicillins Allergy Unknown Verified 03/30/17 20:36 Childhood Physical Examination - Vital Signs Vital Signs: Vital Signs Temp Pulse Pulse Resp BP BP Pulse Ox 03/31/17 07:54 97.5 F L 64 16 120/57 96 03/31/17 04:00 98.4 F 78 18 132/61 96 03/31/17 01:10 96.9 F L 72 18 130/61 95 03/31/17 00:05 78 20 168/77 03/30/17 23:24 69 16 169/69 96 03/30/17 22:25 70 20 156/71 96 03/30/17 19:56 99.3 F 76 18 173/74 98 Intake and Output 03/30/17 03/31/17 03/31/17 22:59 06:59 14:59 Output Total 200 Balance -200 Output: Urine 200 Other: Voiding Method Urinal Weight 99.79 kg 101.3 kg - Constitutional General appearance: average body habitus, cooperative - EENT EENT: PERRL, mucous membranes moist - Respiratory Respiratory: lungs clear, normal breath sounds - Cardiovascular Cardiovascular: regular rate, normal S1, normal S2 Extremities: no peripheral edema bilaterally - Gastrointestinal Gastrointestinal: normoactive bowel sounds - Integumentary Integumentary: normal - Neurologic Cranial nerve examination: PERRL, VFF, V1/V2/V3 grossly intact, face symmetric, intact gag reflex, intact corneal reflex, normal palatal elevation Speech examination: intact Sensorimotor examination: intact Motor examination - right side: 4/5: biceps, triceps, wrist flexion, wrist extension, button breaker operator, hip flexors, knee extensors, dorsiflexion, toe extension (EHL) , plantarflexion Motor examination - left side: 4/5: biceps, triceps, wrist flexion, wrist extension, button breaker operator, hip flexors, knee extensors, dorsiflexion, toe extension (EHL) , plantarflexion Detailed sensory examination: intact Reflex and gait examination: intact Reflexes: 1+: ankle, bicep, knee, tricep - Musculoskeletal Musculoskeletal: no pain - Psychiatric Psychiatric: mood/affect appropriate, cooperative Results - Laboratory Findings CBC and BMP: 03/30/17 21:20 03/30/17 21:20 Abnormal Lab Findings: Abnormal Labs 03/30/17 03/30/17 03/30/17 21:20 21:20 21:20 RBC 3.61 L Hgb 11.4 L Hct 33.1 L Plt Count 108 L Chloride 97 L Carbon Dioxide 31 H BUN 26 H Creatinine 4.60 H Glucose 222 H POC Glucose (mg/dL) Troponin I 0.085 H* Total Protein 6.1 L 03/31/17 06:10 RBC Hgb Hct Plt Count Chloride Carbon Dioxide BUN Creatinine Glucose POC Glucose (mg/dL) 180 H Troponin I Total Protein Assessment and Plan (1) Ocular motor apraxia syndrome Status: Acute Code(s): H51.8 - OTHER SPECIFIED DISORDERS OF BINOCULAR MOVEMENT (2) Dizziness Status: Acute Code(s): R42 - DIZZINESS AND GIDDINESS (3) ESRD (end stage renal disease) on dialysis Status: Acute Code(s): N18.6 - END STAGE RENAL DISEASE; Z99.2 - DEPENDENCE ON RENAL DIALYSIS (4) Headache Status: Acute Code(s): R51 - HEADACHE Plan: This patient is a 62-year-old right-handed white male who was admitted to Hospital with symptoms of headache and visual disturbance. Patient remembers having sustained a fall 2 weeks ago following which she had recurrent symptoms of dizziness. He was brought into the emergency room for further evaluation of recurrent bitemporal headache pain. He was seen in the ER by physician assistant golf course superintendent Chuck Barker. Who ordered a computed tomography scan of the brain. CAT scan of the brain revealed mild atrophy with no evidence of orbital mass. Patient was noted by the ER physician to have some disconjugate eye movements. Mostly it was involving his left eye. Apparently he had an eye exam a month ago which was unremarkable. He did require some new glasses. The patient states he was having double vision as well as dizziness. He does have a history of coronary artery bypass surgery several years ago with stent placement. He is currently on Plavix and aspirin for further treatment. Patient also underwent aortic valve surgery about 1 year ago at [facility]. He is on hemodialysis for end-stage renal disease. He undergoes renal dialysis 3 days a week. He also has underlying history of diabetes mellitus. The patient states his double vision seems to wax and wane. It seems at times he can see normal but at other times he has double vision. For his visual problems he was seen today by Dr. Live from ophthalmology. Dr. Live diagnosed him with left preseptal cellulitis. There was no focal areas defined on his CAT scan to suggest underlying mass. He had moderate tenderness in the left eyelid area. He was not able to demonstrate third nerve palsy on his examination. There was full movement without evidence of any restriction of his eye muscles. There was no APD or visual field loss to his visual testing. Dr. Live recommended IV antibiotic therapy with moxifloxacin. He will be closely monitored by ophthalmology. On his neurological examination today he still demonstrates evidence of ocular nerve apraxia. Exact etiology still remains unclear. We have recommended the patient should undergo a MRI of the brain for further evaluation of the brainstem region. The patient states that he is continuing to have headache pain mostly bitemporal. His ESR was elevated at 30 and his CRP was 13.3. He has been given some pain medication. We are recommending the patient undergo MRI of the brain for further evaluation of possible brainstem lesion. We will work with ophthalmology in terms of further treatment of his left eye problems. His overall prognosis at this time remains very guarded. We will await further recommendations from Dr. Live regarding his left eye ocular muscle pattern of weakness. His overall prognosis as noted remains very guarded. Time with Patient: Greater than 30
[2017-04-01 17:18] LABS: Glucose,Whole Blood 177 mg/dL (75-99)
--- NOTE | 2017-04-01 18:13 | P.PN ---
Subjective Principal diagnosis: headache Patient is a 62-year-old male with a history of type 1 diabetes mellitus, end-stage renal disease, and hypertension who presented with complaints of left eye drooping and headache. In the emergency department he underwent a head CT which was negative. He was admitted for stroke evaluation. Ophthalmology. He may have preseptal cellulitis. He was started on Levaquin. MRI is ordered but has not been done yet. Repeat head CT remained negative. Nephrology was consult to help with hemodialysis. Neurology is also following and awaiting MRI results. Patient seen and examined. He has a headache that is less. He has not had any double vision but he has not been trying to look far away. Denies any chest pain or shortness of breath. He is worried about what we may find an MRI. Denies nausea, vomiting, constipation, or diarrhea. Objective - Vital Signs Vital signs: Vital Signs Temp 97.4 F L 04/01/17 04:00 Pulse 85 04/01/17 04:00 Resp 18 04/01/17 04:00 BP 143/76 04/01/17 04:00 Pulse Ox 94 L 04/01/17 04:00 Intake & Output 03/31/17 04/01/17 04/01/17 18:59 06:59 18:59 Intake Total 540 100 180 Output Total 100 Balance 540 0 180 Weight 100.1 kg Intake: IV 100 Levofloxacin 500Mg-D5w 100 Pmx 500 mg In Dextrose/ Water 1 100ml.bag @ 100 mls/hr IVPB Q24H [facility] Rx#: [id number] Oral 540 180 Output: Urine 100 Other: Voiding Method Urinal Urinal # Voids 2 400 # Bowel Movements 0 - Exam General: non toxic, no distress, appears at stated age Derm: no rashes, no lesions Head: atraumatic, normocephalic, symmetric Eyes: Pupils equal round reactive to light, left eye with disconjugate gaze- unable to fully adduct the eye, ptosis of the left eye Eyes: EOMI, no lid lag, anicteric sclera ENT: no post nasal drip, no thrush Mouth: no lip lesion, mucus membranes moist Cardiovascular: S1S2 reg, no murmur, positive posterior tibial pulse bilateral, Lungs: CTA bilateral, no rhonchi, no rales , no accessory muscle use Abdominal: soft, nontender to palpation, no guarding, no appreciable organomegaly Ext: no gross muscle atrophy, no edema, no contractures Neuro: CN II-XI grossly intact, no focal neuro deficits Psych: Alert, oriented, appropriate affect - Labs CBC & Chem 7: 03/30/17 21:20 03/30/17 21:20 Labs: Abnormal Lab Results - Last 24 Hours (Table) 03/31/17 03/31/17 03/31/17 Range/Units 10:06 10:07 17:06 ESR 30 H (0-15) mm/hr POC Glucose (mg/dL) 144 H (75-99) mg/dL C-Reactive Protein 13.3 H (<10.0) mg/L 03/31/17 04/01/17 Range/Units 21:00 05:59 ESR (0-15) mm/hr POC Glucose (mg/dL) 140 H 180 H (75-99) mg/dL C-Reactive Protein (<10.0) mg/L Assessment and Plan Plan: #ptosis of left eye with probable preseptal cellulitis-CT brain is negative, MRI in AM, Optho and neuro recs appreciated. ESR and CRP elevated. Patient started on levaquin on 04/01 #End-stage renal disease on hemodialysis-HD in AM pr nephro #Diabetes mellitus [id number] home insulin pump, A1C 6.1 #Coronary artery disease-continue statin, #Hypertension, controlled-continue current regimen, follow blood pressures DVT prophylaxis: Early ambulation, Heparin if MRI negative tomorrow Discussed with: Patient , Nursing Anticipated discharge: [address]: home A total of 35 minutes was spent on the care of this complex patient more than 50 % of the time was spent in counseling and care coordination.
[2017-04-01] MEDS: ATORVASTATIN 20 MG TAB PO SCH (20:23)
[2017-04-01] MEDS: CINACALCET 30 MG TAB PO SCH (20:23)
[2017-04-01 20:36] LABS: Glucose,Whole Blood 186 mg/dL (75-99)
[2017-04-02] MEDS: MORPHINE SULFATE 2 MG/ML SYRINGE IVP PRN ×5 (00:37→20:10)
[2017-04-02] MEDS: LEVOFLOXACIN 500MG-D5W PMX 500 MG in DEXTROSE/WATER 1 100ML.BAG IVPB SCH (01:03)
--- NOTE | 2017-04-02 01:31 | P.PN ---
Subjective This patient is a 62-year-old right-handed white male who was admitted to hospital with left-sided headache pain and left eye ocular muscle abnormalities. He was seen by ophthalmology and Dr. Live. He was found to have evidence of preseptal cellulitis involving the left eye. He is being treated with antibiotics. Patient was seen by Dr. Crow today for history of end-stage renal disease. He is to undergo hemodialysis on Sunday following his MRI of the brain. Patient's neurological findings still suggest possibility of brainstem ischemia involving extraocular eye muscle movement dysfunction. We will need to await his MRI study to be done tomorrow for further assessment. Patient otherwise shows no other significant change in his neurological exam. The patient is continue to have some symptoms of nausea with mild vomiting. He was unable to eat his dinner today. We will continue close neurological follow- up in this patient. He is to undergo hemodialysis tomorrow. We will try to complete this testing by tomorrow afternoon at the latest. His overall prognosis remains very guarded. His overall prognosis at this time remains guarded. Objective - Vital Signs Vital signs: Vital Signs Temp 97.3 F L 04/01/17 11:35 Pulse 73 04/01/17 11:35 Resp 16 04/01/17 11:35 BP 137/67 04/01/17 11:35 Pulse Ox 92 L 04/01/17 11:35 Intake & Output 03/31/17 04/01/17 04/01/17 18:59 06:59 18:59 Intake Total 540 100 180 Output Total 100 Balance 540 0 180 Weight 100.1 kg Intake: IV 100 Levofloxacin 500Mg-D5w 100 Pmx 500 mg In Dextrose/ Water 1 100ml.bag @ 100 mls/hr IVPB Q24H [facility] Rx#: [id number] Oral 540 180 Output: Urine 100 Other: Voiding Method Urinal Urinal # Voids 2 400 2 # Bowel Movements 0 - Exam Physical examination: PHYSICAL EXAMINATION: Patient is resting comfortably in bed. VITAL SIGNS: Blood pressure is [95/51]. Heart rate is [77]. Respiration is [18] . Temperature is [97.0]. HEENT: Head is atraumatic, neck is supple, there were no carotid bruits. CHEST: Lungs are clear to auscultation and percussion. CARDIAC: S1, S2 normal rate and rhythm. There is no murmur. ABDOMEN: Soft and nontender. Bowel sounds are present. EXTREMITIES: There is no pedal edema. Peripheral pulses are present. Neurological examination: Patient's neurological examination is unchanged from yesterday. He continues to have some swelling of the left eyelid. Extraocular eye movements are still impaired involving the left eye movements. - Labs CBC & Chem 7: 03/30/17 21:20 03/30/17 21:20 Labs: Abnormal Lab Results - Last 24 Hours (Table) 03/31/17 03/31/17 04/01/17 Range/Units 17:06 21:00 05:59 POC Glucose (mg/dL) 144 H 140 H 180 H (75-99) mg/dL 04/01/17 Range/Units 12:29 POC Glucose (mg/dL) 165 H (75-99) mg/dL Assessment and Plan (1) Ocular motor apraxia syndrome Status: Acute Code(s): H51.8 - OTHER SPECIFIED DISORDERS OF BINOCULAR MOVEMENT (2) Dizziness Status: Acute Code(s): R42 - DIZZINESS AND GIDDINESS (3) ESRD (end stage renal disease) on dialysis Status: Acute Code(s): N18.6 - END STAGE RENAL DISEASE; Z99.2 - DEPENDENCE ON RENAL DIALYSIS (4) Headache Status: Acute Code(s): R51 - HEADACHE Plan: This patient is a 62-year-old right-handed white male who was admitted to Hospital with symptoms of headache and visual disturbance. Patient remembers having sustained a fall 2 weeks ago following which she had recurrent symptoms of dizziness. He was brought into the emergency room for further evaluation of recurrent bitemporal headache pain. He was seen in the ER by physician assistant professor surgical technology Chuck Barker. Who ordered a computed tomography scan of the brain. CAT scan of the brain revealed mild atrophy with no evidence of orbital mass. Patient was noted by the ER physician to have some disconjugate eye movements. Mostly it was involving his left eye. Apparently he had an eye exam a month ago which was unremarkable. He did require some new glasses. The patient states he was having double vision as well as dizziness. He does have a history of coronary artery bypass surgery several years ago with stent placement. He is currently on Plavix and aspirin for further treatment. Patient also underwent aortic valve surgery about 1 year ago at [facility]. He is on hemodialysis for end-stage renal disease. He undergoes renal dialysis 3 days a week. He also has underlying history of diabetes mellitus. The patient states his double vision seems to wax and wane. It seems at times he can see normal but at other times he has double vision. For his visual problems he was seen today by Dr. Live from ophthalmology. Dr. Live diagnosed him with left preseptal cellulitis. There was no focal areas defined on his CAT scan to suggest underlying mass. He had moderate tenderness in the left eyelid area. He was not able to demonstrate third nerve palsy on his examination. There was full movement without evidence of any restriction of his eye muscles. There was no APD or visual field loss to his visual testing. Dr. Live recommended IV antibiotic therapy with moxifloxacin. He will be closely monitored by ophthalmology. On his neurological examination today he still demonstrates evidence of ocular nerve apraxia. Exact etiology still remains unclear. We have recommended the patient should undergo a MRI of the brain for further evaluation of the brainstem region. The patient states that he is continuing to have headache pain mostly bitemporal. His ESR was elevated at 30 and his CRP was 13.3. He has been given some pain medication. We are recommending the patient undergo MRI of the brain for further evaluation of possible brainstem lesion. We will work with ophthalmology in terms of further treatment of his left eye problems. His overall prognosis at this time remains very guarded. The patient is tentatively scheduled to have MRI of the brain done tomorrow. We will await to see if he can complete also his cervical and lumbar disc disease films We will await further recommendations from Dr. Live regarding his left eye ocular muscle pattern of weakness. His overall prognosis as noted remains very guarded.
[2017-04-02 02:32] LABS: Glucose,Whole Blood 272 mg/dL (75-99)
[2017-04-02] MEDS: LISINOPRIL 10 MG TAB PO SCH ×2 (04:32→21:46)
[2017-04-02 04:45] LABS: CH 31.7; CHCM 34.2; HCT 29.5 % (39.0-53.0); HDW 3.57; MCH 31.6 pg (25.0-35.0); MCV 93.1 fL (80.0-100.0); Mean Platelet Volume 7.2; Poikilocytosis Slight; RBC 3.17 m/uL (4.30-5.90); RDW 14.2 % (11.5-15.5); WBC 4.5 k/uL (3.8-10.6)
[2017-04-02 05:09] LABS: Calcium 9.9 mg/dL (8.4-10.2); Potassium 4.8 mmol/L (3.5-5.1); Total Bilirubin 0.6 mg/dL (0.2-1.3); Total Protein 5.6 g/dL (6.3-8.2)
[2017-04-02 05:34] LABS: Creatine Kinase MB 1.6 ng/mL (0.0-2.4)
[2017-04-02 05:37] LABS: Troponin I 0.069 ng/mL (0.000-0.034)
[2017-04-02 07:13] LABS: Glucose,Whole Blood 200 mg/dL (75-99)
[2017-04-02] MEDS: INSULIN PUMP TARGET GLUCOSE 1 EACH MISC MISCELLANE PRN ×2 (07:30→12:30)
[2017-04-02] MEDS: SEVELAMER 800 MG TAB PO SCH ×3 (08:10→17:24)
[2017-04-02] MEDS: CARVEDILOL 12.5 MG TAB PO SCH ×2 (08:11→17:24)
[2017-04-02] MEDS: MULTIVITAMINS, THERA 1 EACH TAB PO SCH (08:11)
--- NOTE | 2017-04-02 08:25 | P.CON ---
Consult Note - . Consult date: 04/02/17 Assessment/Plan:: 62 y/o patient with left sided headache and ptosis. Pain is persistent and unrelieved. Did not comment on diplopia. O: Va w/ tricia 20/20 OU Ext: mild swelling no erythema left upper lid, ptotic. mild tenderness to palpation EOM: full Pupils: no APD Fissures: 7 mm OD, 5 mm OS MRD: +2 mm OD, -1 mm OS IOP: 15 mm Hg OD, 12 mm Hg OS @ 0745 Conj: white & quiet OU Cornea: clear OU AC: clear OU A: Ptosis left eye wihtout localizing signs, treating as presumed preseptal cellulitis with out any noticeable improvement Amblyopia: left eye confound diagnosis, may well have a problem with residual XT, however is able to cross midline on command without noted overt discomfort, likely not a typical 3rd nerve or even celluliitis Headache: currently being worked up - awaiting more information from MRI with contrast P: Will continue to follow and awaiting MRI, expect some cuts through through the orbit during examination to clinch presumption of cellulitis either orbital or preseptal. If nothing WRT infection in area will withdraw antibiotics.
[2017-04-02] MEDS ORDERED: INSULIN PUMP ACTIVE INSULIN 1 EACH MISC MISCELLANE PRN (09:50)
[2017-04-02] MEDS ORDERED: INSPUCOR MISCELLANE PRN (09:52)
[2017-04-02] MEDS: FUROSEMIDE 40 MG TAB PO SCH (11:52)
[2017-04-02 12:25] LABS: Glucose,Whole Blood 171 mg/dL (75-99)
--- NOTE | 2017-04-02 14:23 | MR ---
EXAMINATION TYPE: MR brain wo con DATE OF EXAM: 04/02/2017 COMPARISON: CT orbits 03/31/2017 HISTORY: headache, disconjugate gaze CONTRAST: Performed utilizing 0 mL intravenous Gadavist gadolinium contrast. TECHNIQUE: Multiplanar, multiecho imaging on a 3.0 Yumiko magnet is performed through the brain. Stud y is performed within 24 hours of arrival to the hospital. The craniovertebral junction is normal. The pituitary is normal. Diffusion-weighted imaging is performed. No abnormal hyperintensity is present to suggest an acute i ntracranial infarct or acute ischemic change. There are scattered punctate areas of hyperintensity on T2 and Inversion Recovery weighted sequences which are non-specific but can be related to microvascular ischemic changes. Ventricles and sulci are appropriate for the patient age. Orbits appear symmetrical. Some proptosis is evident but stable from prior study. Extraocular muscles and optic nerves appear normal. Optic chiasm appears normal. IMPRESSIONS: 1. Normal MRI brain and visualized orbits
[2017-04-02] MEDS: ONDANSETRON 4 MG/2 ML VIAL IVP PRN ×2 (14:37→20:11)
[2017-04-02] MEDS: INSULIN PUMP MEAL BOLUS 1 UNIT MISC MISCELLANE SCH ×3 (15:51→21:44)
[2017-04-02 16:52] LABS: Glucose,Whole Blood 189 mg/dL (75-99)
[2017-04-02 20:59] LABS: Glucose,Whole Blood 144 mg/dL (75-99)
[2017-04-02] MEDS: CINACALCET 30 MG TAB PO SCH (21:43)
[2017-04-02] MEDS: CLOPIDOGREL 75 MG TAB PO SCH (21:46)
[2017-04-02] MEDS: ISOSORBIDE MONONITRATE ER 60 MG TAB.ER.24H PO SCH (21:46)
[2017-04-02] MEDS: ATORVASTATIN 20 MG TAB PO SCH (21:46)
[2017-04-02] MEDS: RANOLAZINE 500 MG TAB.ER.12H PO SCH (21:46)
[2017-04-03] MEDS: MORPHINE SULFATE 2 MG/ML SYRINGE IVP PRN ×2 (00:01→08:14)
[2017-04-03 02:10] LABS: Glucose,Whole Blood 219 mg/dL (75-99)
[2017-04-03 07:11] LABS: Glucose,Whole Blood 188 mg/dL (75-99)
--- NOTE | 2017-04-03 08:12 | P.CON ---
Consult Note - . Consult date: 04/03/17 Assessment/Plan:: 62 y/o male with onset of headache and diplopia with ptosis of the left eye day 4 who states there is some subjective in eyelid height and reduction in headache. Today admitted the pain is somewhat better at 5 out of 10. He required a single dosage of narcotic medication to reduce symptoms and he became only moderately nauseated requiring Zofran once yesterday. He remains on IV antibiotics and an MRI was returned without intracranial or orbital lesions. PE: Va w/ tricia 20/20 OD, 20/30 OS IOP: NA External: mild to moderate dermatochalsis without erythema. Eyelid: fissures 9 mm OD, 7 mm OS MRD: +3 mm OD, +1 mm OS EOM: moderate XT from a resting position, otherwise full ductions. poor versions , near point ~ 15 cm Pupils, normal no APD. Conj: white & quiet Cornea: clear AC: D&Q A: Ptosis and XT treated so far under the presumption of possible preseptal/ orbital cellulitis, left eye. Since the admission the concerns have been related to the worst case scenario, including central nervous system damage or cellulitis involving the orbit or soft tissues of the eyelid/socket. The headache probably has been the most confounding part of the underlying disease process and has raised the concern of a more profound condition. However, after the latest information with a completed radiologic study there has been no profound injury or process noted. This entire concern has been a 3rd nerve palsy with profound implications, but no contributing factors have been identified. 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 These entities apparently can be accompanied with a severe headache and sudden onset of the ptosis and typical 3rd nerve signs, all without the involvement of the pupil. Various nerve palsies due to ischemia, e.g., HTN or diabetic, can often be associated marked decrease in function of that nerve which is most likely to resolve given some period of time. The pain experienced by this patient was profound which required the closer investigation. P: At this time, I will reduce the antibiotic to oral for the balance of the 7 days. I will continue to follow while hospitalized. I will expect to see the patient in the office within a week of discharge to follow up further, expecting complete resolution of the signs and symptoms to be resolved within 1 month.
[2017-04-03] MEDS: INSULIN PUMP MEAL BOLUS 1 UNIT MISC MISCELLANE SCH ×4 (08:19→21:21)
[2017-04-03] MEDS: SEVELAMER 800 MG TAB PO SCH ×3 (08:22→17:13)
[2017-04-03] MEDS: CARVEDILOL 12.5 MG TAB PO SCH ×2 (08:22→16:54)
[2017-04-03] MEDS: CLOPIDOGREL 75 MG TAB PO SCH (08:23)
[2017-04-03] MEDS: FUROSEMIDE 40 MG TAB PO SCH (08:23)
[2017-04-03] MEDS: ISOSORBIDE MONONITRATE ER 60 MG TAB.ER.24H PO SCH (08:24)
[2017-04-03] MEDS: MULTIVITAMINS, THERA 1 EACH TAB PO SCH (08:24)
[2017-04-03] MEDS: RANOLAZINE 500 MG TAB.ER.12H PO SCH (08:24)
--- NOTE | 2017-04-03 08:41 | PN ---
Patient is seen for followup for end-stage renal disease. Is admitted to the hospital with severe headache, mainly left sided with diplopia on the left side as well. Patient had gone for MRI yesterday, which turned out to be normal. He is currently being seen by annealing furnace operator and their thought process is more for microvascular disease associated with diabetes, which should improve over the next few weeks. Patient has been maintained on antibiotics, which will be switched over to p.o. On examination, blood pressure is 130/62. Heart rate is 69 per minute. He is afebrile. Examination shows patient is euvolemic with no evidence of edema in his lower extremities. Lungs are clear. Labs shows potassium 4.8 from yesterday. Hemoglobin was 10.0. ASSESSMENT: 1. End-stage renal disease on hemodialysis on a Sunday, Sunday, Sunday schedule. Will arrange for hemodialysis tomorrow. 2. Severe headache with left eye pain, being followed by Dr. Live, with consent being mainly diabetic microvascular disease. Patient is on antibiotics, which will be switched over to p.o. He could be discharged tomorrow after dialysis. AISHA
[2017-04-03] MEDS: HYDROcodone/APAP 7.5-325MG 1 EACH TAB PO PRN ×2 (12:24→20:00)
[2017-04-03 12:41] LABS: Glucose,Whole Blood 186 mg/dL (75-99)
[2017-04-03] MEDS ORDERED: LEVOFLOXACIN 500 MG TAB PO SCH (16:00)
--- NOTE | 2017-04-03 16:16 | P.PN ---
Subjective Principal diagnosis: headache Patient is a 62-year-old male with a history of type 1 diabetes mellitus, end-stage renal disease, and hypertension who presented with complaints of left eye drooping and headache. In the emergency department he underwent a head CT which was negative. He was admitted for stroke evaluation. Ophthalmology was consulted and felt he may have preseptal cellulitis. He was started on Levaquin. Repeat head CT remained negative. MRI showed no acute process. Nephrology was consult to help with hemodialysis. Neurology felt not brain in origin- ESR felt not to be elevated enough to consider inflammatory process. 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 Patient seen and examined. Patient is feeling slightly better today. He still has a headache. Still having some double vision. States that grooving machine operator to monitor him another 24 hours, he is unable to get to Dialysis in the morning due to his working in his double vision area denies chest pain and shortness of breath. Objective - Vital Signs Vital signs: Vital Signs Temp 97.7 F 04/03/17 08:02 Pulse 73 04/03/17 11:01 Resp 18 04/03/17 11:01 BP 130/62 04/03/17 08:02 Pulse Ox 93 L 04/03/17 08:02 Intake & Output 04/02/17 04/03/17 04/03/17 18:59 06:59 18:59 Intake Total 236 Output Total 1 Balance -1 236 Weight 101.5 kg Intake: Oral 236 Output: Emesis 1 Other: Voiding Method Toilet Toilet # Voids 2 1 # Emeses 1 - Exam General: non toxic, no distress, appears at stated age Derm: no rashes, no lesions Head: atraumatic, normocephalic, symmetric Eyes: Pupils equal round reactive to light, left eye with disconjugate gaze, ptosis of the left eye Eyes: anicteric sclera ENT: no post nasal drip, no thrush Mouth: no lip lesion, mucus membranes moist Cardiovascular: S1S2 reg, no murmur, positive posterior tibial pulse bilateral, Lungs: CTA bilateral, no rhonchi, no rales , no accessory muscle use Abdominal: soft, nontender to palpation, no guarding, no appreciable organomegaly Ext: no gross muscle atrophy, no edema, no contracture Neuro: no focal extremity neuro deficits Psych: Alert, oriented, appropriate affect - Labs CBC & Chem 7: 04/02/17 03:32 04/02/17 03:32 Labs: Abnormal Lab Results - Last 24 Hours (Table) 04/02/17 04/02/17 04/02/17 Range/Units 12:17 16:50 20:48 POC Glucose (mg/dL) 171 H 189 H 144 H (75-99) mg/dL 04/03/17 04/03/17 Range/Units 02:07 07:08 POC Glucose (mg/dL) 219 H 188 H (75-99) mg/dL Assessment and Plan Plan: #ptosis of left eye with probable preseptal cellulitis and 3Rd CN palsy with pupiling sparing-CT brain is negative, MRI negative, Optho and neuro recs appreciated. ESR and CRP elevated but not diagnostic of inflammatory condition. Patient started on levaquin on 04/01 transitioned to oral 04/03 #End-stage renal disease on hemodialysis-HD in AM pr nephro #Diabetes mellitus omechzq-[id number]-asksmgym home insulin pump, A1C 6.1 #Coronary artery disease-continue statin, #Hypertension, controlled-continue current regimen, follow blood pressures DVT prophylaxis: heparin Discussed with: Patient , Nursing Anticipated discharge: AM after HD Anticipated discharge place: home A total of 35 minutes was spent on the care of this complex patient more than 50 % of the time was spent in counseling and care coordination.
[2017-04-03] MEDS: HEPARIN SODIUM,PORCINE 5,000 UNIT/ML 1 ML VIAL SQ SCH ×3 (17:13→23:16)
[2017-04-03 17:38] LABS: Glucose,Whole Blood 174 mg/dL (75-99)
[2017-04-03] MEDS: ONDANSETRON 4 MG/2 ML VIAL IVP PRN (18:43)
[2017-04-03] MEDS: LISINOPRIL 10 MG TAB PO SCH (20:02)
[2017-04-03] MEDS: CINACALCET 30 MG TAB PO SCH (20:02)
[2017-04-03 20:57] LABS: Glucose,Whole Blood 98 mg/dL (75-99)
[2017-04-03] MEDS: ATORVASTATIN 20 MG TAB PO SCH (21:21)
[2017-04-03] MEDS ORDERED: LEVOFLOXACIN 250MG-D5W PMX 250 MG in DEXTROSE/WATER 1 50ML.BAG IVPB SCH (22:00)
--- NOTE | 2017-04-04 01:41 | P.PN ---
Subjective This patient is a 62-year-old right-handed white male who was admitted to hospital with left-sided headache pain and left eye ocular muscle abnormalities. He was seen by ophthalmology and Dr. Live. He was found to have evidence of preseptal cellulitis involving the left eye. He is being treated with antibiotics. Patient was seen by Dr. Crow today for history of end-stage renal disease. He is to undergo hemodialysis on Sunday following his MRI of the brain. Patient's neurological findings still suggest possibility of brainstem ischemia involving extraocular eye muscle movement dysfunction. We will need to await his MRI study to be done tomorrow for further assessment. Patient otherwise shows no other significant change in his neurological exam. The patient is continue to have some symptoms of nausea with mild vomiting. He was unable to eat his dinner today. We will continue close neurological follow- up in this patient. He is to undergo hemodialysis tomorrow. We will try to complete this testing by tomorrow afternoon at the latest. The patient did undergo MRI of the brain today. MRI is reported negative for any acute changes. Case was discussed today with the dehairing machine tender Dr. Live who agreed with our assumption that this patient likely has a pupil sparing third nerve palsy involving the left eye. Dr. Live agrees with this diagnosis at this time. We will continue close neurological follow-up for this patient during this admission. His overall prognosis remains very guarded. His overall prognosis at this time remains guarded. Objective - Vital Signs Vital signs: Vital Signs Temp 98.2 F 04/03/17 14:27 Pulse 71 04/03/17 14:27 Resp 16 04/03/17 14:27 BP 108/50 04/03/17 14:27 Pulse Ox 95 04/03/17 14:27 Intake & Output 04/03/17 04/03/17 04/04/17 06:59 18:59 06:59 Intake Total 236 Balance 236 Weight 101.5 kg 101.5 kg Intake: Oral 236 Other: Voiding Method Toilet Toilet # Voids 1 1 - Exam Physical examination: PHYSICAL EXAMINATION: Patient is resting comfortably in bed. VITAL SIGNS: Blood pressure is [95/51]. Heart rate is [77]. Respiration is [18] . Temperature is [97.0]. HEENT: Head is atraumatic, neck is supple, there were no carotid bruits. CHEST: Lungs are clear to auscultation and percussion. CARDIAC: S1, S2 normal rate and rhythm. There is no murmur. ABDOMEN: Soft and nontender. Bowel sounds are present. EXTREMITIES: There is no pedal edema. Peripheral pulses are present. Neurological examination: Patient's neurological examination is unchanged from yesterday. He continues to have some swelling of the left eyelid. Extraocular eye movements are still impaired involving the left eye movements. 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 Patient remembers having sustained a fall 2 weeks ago following which she had recurrent symptoms of dizziness. He was brought into the emergency room for further evaluation of recurrent bitemporal headache pain. He was seen in the ER by physician dietetic assistant Chuck Barker. Who ordered a computed tomography scan of the brain. CAT scan of the brain revealed mild atrophy with no evidence of orbital mass. Patient was noted by the ER physician to have some disconjugate eye movements. Mostly it was involving his left eye. Apparently he had an eye exam a month ago which was unremarkable. He did require some new glasses. The patient states he was having double vision as well as dizziness. He does have a history of coronary artery bypass surgery several years ago with stent placement. He is currently on Plavix and aspirin for further treatment. Patient also underwent aortic valve surgery about 1 year ago at [facility]. He is on hemodialysis for end-stage renal disease. He undergoes renal dialysis 3 days a week. He also has underlying history of diabetes mellitus. The patient states his double vision seems to wax and wane. It seems at times he can see normal but at other times he has double vision. For his visual problems he was seen today by Dr. Live from ophthalmology. Dr. Live diagnosed him with left preseptal cellulitis. There was no focal areas defined on his CAT scan to suggest underlying mass. He had moderate tenderness in the left eyelid area. He was not able to demonstrate third nerve palsy on his examination. There was full movement without evidence of any restriction of his eye muscles. There was no APD or visual field loss to his visual testing. Dr. Live recommended IV antibiotic therapy with moxifloxacin. He will be closely monitored by ophthalmology. On his neurological examination today he still demonstrates evidence of ocular nerve apraxia. Exact etiology still remains unclear. We have recommended the patient should undergo a MRI of the brain for further evaluation of the brainstem region. The patient states that he is continuing to have headache pain mostly bitemporal. His ESR was elevated at 30 and his CRP was 13.3. He has been given some pain medication. We are recommending the patient undergo MRI of the brain for further evaluation of possible brainstem lesion. We will work with ophthalmology in terms of further treatment of his left eye problems. His overall prognosis at this time remains very guarded. The patient is tentatively scheduled to have MRI of the brain done tomorrow. We will await to see if he can complete also his cervical and lumbar disc disease films We will await further recommendations from Dr. Live regarding his left eye ocular muscle pattern of weakness. His overall prognosis as noted remains very guarded.
[2017-04-04 02:19] LABS: Glucose,Whole Blood 196 mg/dL (75-99)
[2017-04-04] MEDS: INSULIN PUMP MEAL BOLUS 1 UNIT MISC MISCELLANE SCH ×4 (02:22→18:10)
[2017-04-04 07:20] LABS: Glucose,Whole Blood 134 mg/dL (75-99)
[2017-04-04] MEDS: HEPARIN SODIUM,PORCINE 5,000 UNIT/ML 1 ML VIAL SQ SCH ×2 (08:03→15:35)
[2017-04-04] MEDS: CARVEDILOL 12.5 MG TAB PO SCH ×2 (08:03→18:25)
[2017-04-04] MEDS: SEVELAMER 800 MG TAB PO SCH ×3 (08:03→18:26)
[2017-04-04] MEDS: CLOPIDOGREL 75 MG TAB PO SCH (08:04)
[2017-04-04] MEDS: MULTIVITAMINS, THERA 1 EACH TAB PO SCH (08:04)
[2017-04-04] MEDS: ISOSORBIDE MONONITRATE ER 60 MG TAB.ER.24H PO SCH (08:04)
[2017-04-04] MEDS: FUROSEMIDE 40 MG TAB PO SCH (08:04)
[2017-04-04] MEDS: RANOLAZINE 500 MG TAB.ER.12H PO SCH (08:04)
--- NOTE | 2017-04-04 09:54 | P.DS ---
Providers Date of admission: 03/30/17 23:12 Expected date of discharge: 04/04/17 Attending physician: Earl Buck MD Consults: 03/30/17 23:22 Consult Physician Stat Consulting Provider: Kristi Jensen Consult Reason/Comments: ocular nerve palsy Do you want consulting provider notified?: Yes 03/31/17 16:47 Consult Physician Routine Consulting Provider: Jj Live Consult Reason/Comments: 3rd Cranial nerve palsy Do you want consulting provider notified?: Yes Consult Physician Routine Consulting Provider: Liu Lama Consult Reason/Comments: ESRD Do you want consulting provider notified?: Yes Primary care physician: Physician Nonstaff - Discharge Diagnosis(es) (1) Diabetes mellitus Current Visit: Yes Status: Acute (2) Dizziness Current Visit: Yes Status: Acute (3) ESRD (end stage renal disease) on dialysis Current Visit: Yes Status: Acute (4) Headache Current Visit: Yes Status: Acute (5) Ocular palsy of left eye Current Visit: Yes Status: Acute Hospital Course: Patient is a 62-year-old male with a history of type 1 diabetes mellitus, end-stage renal disease, and hypertension who presented with complaints of left eye drooping and headache. In the emergency department he underwent a head CT which was negative. He was admitted for stroke evaluation. Ophthalmology was consulted and felt he may have preseptal cellulitis. He was started on Levaquin. Repeat head CT remained negative. MRI was unable to be obtained on Sunday and therefore was coordinated with dialysis on Sunday and showed no acute process. Nephrology was consult to help with hemodialysis. Neurology felt not brain in origin- ESR felt not to be elevated enough to consider inflammatory process. Optho feels that this is a pupil sparing 3rd nerve palsy likely related to diabetes or hypertension. Still continued to struggle with double vision. His pain became better controlled on oral narcotics once IV narcotics were discontinued. His dialysis was followed by nephrology during his hospitalization. His pain had improved, vision had improved, and ptosis appeared improved. We will complete an oral course of Levaquin for an additional 7 days as per ophthalmology recommendations. He will also need to follow-up with neurology in 3-4 weeks to ensure complete resolution of his ptosis. Could also consider outpatient myasthenia workup and neurology will follow for this. Patient was subsequently discharged home in stable condition. Patient seen and examined at bedside. Having less double vision, pain controlled on oral narcotic regimen, no nausea, no vomiting, no diarrhea. Blood sugars running at baseline. Vital signs stable General: no distress, appears at stated age Derm: no rashes, no lesions Head: atraumatic, normocephalic, symmetric Eyes: Ptosis of left eyelid, inability to fully adduct left eye, , anicteric sclera ENT: no post nasal drip, no thrush Mouth: no lip lesion, mucus membranes moist Cardiovascular: S1S2 reg, no murmur, positive posterior tibial pulse bilateral, Lungs: CTA bilateral, no rhonchi, no rales , no accessory muscle use Abdominal: soft, nontender to palpation, no guarding, no appreciable organomegaly Ext: no gross muscle atrophy, no edema, no contractures Neuro: CN II-XI grossly intact, no focal neuro deficits Psych: Alert, oriented, appropriate affect A total of 35 minutes was spent preparing this complex discharge summary Pertinent Studies: Brain MRI-normal MRI brain and visualized orbits Head CT-no acute process Procedures: None Patient Condition at Discharge: Good Plan - Discharge Summary New Discharge Prescriptions: New HYDROcodone/APAP 7.5-325MG [[place] 7.5-325] 1 each PO Q6H PRN #30 tab PRN Reason: Pain Levofloxacin [Levaquin] 500 mg PO Q48H #4 tab Continue Furosemide [Lasix] 40 mg PO DAILY Cinacalcet [Sensipar] 30 mg PO HS Carvedilol [Coreg] 12.5 mg PO BID Sevelamer [Renvela] 3,200 mg PO AC-TID Isosorbide Mononitrate [Isosorbide Mononitrate ER] 60 mg PO DAILY Clopidogrel [Plavix] 75 mg PO DAILY Lisinopril [Zestril] 10 mg PO HS INSULIN LISPRO (For Pump) [humaLOG (For Pump)] See Protocol SQ-PUMP CONTINUOUS Atorvastatin Calcium [Lipitor] 20 mg PO HS Ranolazine [Ranexa] 1,000 mg PO DAILY Multivitamins, Thera [Multivitamin (formulary)] 1 tab PO DAILY Sevelamer [Renvela] 2,400 mg PO DAILY PRN PRN Reason: SNACK Discharge Medication List Atorvastatin Calcium [Lipitor] 20 mg PO HS 03/30/17 [History] Carvedilol [Coreg] 12.5 mg PO BID 03/30/17 [History] Cinacalcet [Sensipar] 30 mg PO HS 03/30/17 [History] Clopidogrel [Plavix] 75 mg PO DAILY 03/30/17 [History] Furosemide [Lasix] 40 mg PO DAILY 03/30/17 [History] INSULIN LISPRO (For Pump) [humaLOG (For Pump)] See Protocol SQ-PUMP CONTINUOUS 03/30/17 [History] Isosorbide Mononitrate [Isosorbide Mononitrate ER] 60 mg PO DAILY 03/30/17 [ History] Lisinopril [Zestril] 10 mg PO HS 03/30/17 [History] Multivitamins, Thera [Multivitamin (formulary)] 1 tab PO DAILY 03/30/17 [History ] Ranolazine [Ranexa] 1,000 mg PO DAILY 03/30/17 [History] Sevelamer [Renvela] 2,400 mg PO DAILY PRN 03/30/17 [History] Sevelamer [Renvela] 3,200 mg PO AC-TID 03/30/17 [History] HYDROcodone/APAP 7.5-325MG [[place] 7.5-325] 1 each PO Q6H PRN #30 tab 04/04/17 [ Rx] Levofloxacin [Levaquin] 500 mg PO Q48H #4 tab 04/04/17 [Rx] Follow up Appointment(s)/Referral(s): Marilou Crow MD [STAFF PHYSICIAN] - 1 Week Jj Live MD [STAFF PHYSICIAN] - 04/12/17 11:00 am Courtney Jensen MD [STAFF PHYSICIAN] - 05/10/17 11:00 am RichardPhysician [Primary Care Provider] - 1-2 days Activity/Diet/Wound Care/Special Instructions: Diet: renal dialysis carb consistent Activity: As tolerated, do not drive until double vision resolved. Discharge Disposition: HOME SELF-CARE
--- NOTE | 2017-04-04 10:00 | P.PN ---
Subjective Patient is seen for follow-up for end-stage renal disease. He was admitted to the hospital with severe headache mainly on the left side along with changes in vision on the left eye. He has had an MRI done which was negative and the patient has been evaluated by neurology as well as ophthalmology and he then the diagnosis is reached is some degree of third nerve palsy involving the left eye associated with microvascular disease. Crane patient's symptoms have improved. His headache is also significantly improved. He will be dialyzed today and can go home post dialysis. Objective - Vital Signs Vital signs: Vital Signs Temp 96.9 F L 04/04/17 07:00 Pulse 66 04/04/17 07:00 Resp 16 04/04/17 07:00 BP 115/56 04/04/17 07:00 Pulse Ox 97 04/04/17 07:00 Intake & Output 04/03/17 04/04/17 04/04/17 18:59 06:59 18:59 Weight 102 kg Other: Voiding Method Toilet Toilet # Voids 1 0 - Exam On examination patient is comfortable awake alert oriented 3. He is not in any acute distress. Blood pressure is 115/56 Heart rate 66/m Examination of the heart S1 and S2 Examination lungs bilateral breath sounds are heard Abdomen is soft nontender Examination of the abdomen reveals soft nontender exertion lower extremity shows no significant edema. PROGRAM MANAGEMENT PROFESSIONAL exam is grossly intact. - Labs CBC & Chem 7: 04/02/17 03:32 04/02/17 03:32 Labs: Abnormal Lab Results - Last 24 Hours (Table) 04/03/17 04/03/17 04/03/17 Range/Units 08:03 12:20 17:06 ESR 29 H (0-15) mm/hr POC Glucose (mg/dL) 186 H 174 H (75-99) mg/dL 04/04/17 04/04/17 Range/Units 02:16 07:17 ESR (0-15) mm/hr POC Glucose (mg/dL) 196 H 134 H (75-99) mg/dL Assessment and Plan Plan: Assessment 1. End-stage renal disease. We will arrange for hemodialysis today. 2. 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 Status post evaluation by neurology and ophthalmology. Patient can be discharged today he is maintained on Plavix which he should continue. 3. CK D bone mineral disorder 4. Hypertension currently controlled Plan Hemodialysis today Jose David loza patient can be discharged postdialysis he will follow -up as outpatient for his next treatment on Sunday on his routine schedule at the [facility].
[2017-04-04 14:06] LABS: Glucose,Whole Blood 113 mg/dL (75-99)
[2017-04-04] MEDS: ONDANSETRON 4 MG/2 ML VIAL IVP PRN ×2 (14:11→18:19)
--- NOTE | 2017-04-04 14:30 | P.CON ---
Consult Note - . Consult date: 04/04/17 Assessment/Plan:: 62 y/o patient with left 3rd nerve palsy and headache. Today symptoms seem to be abating, and there is a subjective improvement in the eyelid ptosis. PE: Va w/ correction 20/20 OD, 20/30 OS Ext: no eyelid swelling or erythema. Moderate left ptosis and variable XT left eye. No discomfort on palpation of the left eyelid EOM: normal ductions OD, left eye will track on command in all ruiz of gaze but is somewhat limited on right gaze, IV/ range Eyelids: fissures 10 mm OD, 8 mm OS; MRD +3mm OD, 0mm OS. Pupils: no APD Conjunctiva: white & quite OU Cornea: clear OU AC: Deep & quiet OU A: left 3rd nerve palsy with headache seems to be resolving. Most likely etiology is likely the diabetes. Expectation of resolution is approximately 3 months. Initial presumption of cellulitis, if present is at this point resolved and he's completing a course of antibiotics in 2 days. P: Expecting discharge soon and will continue to follow in office within the week. Any changes in condition will see sooner. He will continue his medical care as scheduled.
[2017-04-04 15:41] VITALS: BP 168/82; PULSE 64; RESP 18
[2017-04-04 17:58] LABS: Glucose,Whole Blood 77 mg/dL (75-99)
[2017-04-04 18:08] VITALS: TEMP 96.7
== END 2017-04-04 19:06 | disposition home or self-care (01) | DRG 73 ==
LOC: EC 19:43 → 6SEL 23:12 → 4MS4W 04-01 11:08
PROVIDERS: ADMIT Internal Medicine; ATTEND Internal Medicine
PROC: 5A1D00Z (ICD-10-PCS; principal; 2017-04-04)
DX: E10.41 Type 1 diabetes mellitus with diabetic mononeuropathy (principal); N18.6 End stage renal disease; I13.2 Hypertensive heart and chronic kidney disease with heart failure and with stage 5 chronic kidney disease, or end stage renal disease; H49.02 Third [oculomotor] nerve palsy, left eye; E10.22 Type 1 diabetes mellitus with diabetic chronic kidney disease; Z99.2 Dependence on renal dialysis; I25.10 Atherosclerotic heart disease of native coronary artery without angina pectoris; Z95.1 Presence of aortocoronary bypass graft; Z95.2 Presence of prosthetic heart valve; Z87.891 Personal history of nicotine dependence; Z79.02 Long term (current) use of antithrombotics/antiplatelets; Z79.4 Long term (current) use of insulin; Z79.899 Other long term (current) drug therapy; Z88.0 Allergy status to penicillin; H53.2 Diplopia; I50.9 Heart failure, unspecified; E07.9 Disorder of thyroid, unspecified
CPT/HCPCS: 36415; 70450; 70480; 70551; 71020; 80053; 82550; 82553; 83036; 84484; 85025; 85027; 85610; 85652; 85730; 86140; 90935; 93005; 95819; 96374; 96375; 96376; 99285

== ENCOUNTER 2017-04-11 10:52 | Emergency (ER) | payer MEDICARE, BC ==
[2017-04-11] MEDS ORDERED: SODIUM CHLORIDE 0.9% 1,000 ML IV STA ×2 (11:27)
--- NOTE | 2017-04-11 11:40 | ED ---
Nausea/Vomiting/Diarrhea HPI - General Chief complaint: Nausea/Vomiting/Diarrhea Stated complaint: VOMITING, EYE SWELLING, PAIN LEFT GNOSTICIST Time Seen by Provider: 04/11/17 11:00 Source: patient, RN notes reviewed, old records reviewed Mode of arrival: ambulatory Limitations: no limitations - History of Present Illness Initial comments: 52-year-old male presents emergency Department with increased left eye swelling and irritation. For that he feels increased pressure behind his eye. Patient also reports that he's been having increased nausea as well. Patient states that he was admitted for a workup and was determined to have a third nerve palsy. Patient reports that whenever he looks up he has double vision. Patient states she has had no increased drainage from the eye. He is placed on antibiotics for preseptal cellulitis. Patient states that he completed those. He reports that he was supposed to follow-up with ophthalmology in reports that he had an appointment today. Patient reports he was concerned because of the increased swelling, and nausea that he should just come to the emergency department to be evaluated and the stage electrician helper come here. Patient reports he also does dialysis, he is supposed to have dialysis today. He reports that he stated he is woken up with a severe headache but today has been 1 day with he 's been headache free. Patient was discharged with [place] and has been taking most relates that that might be related to his stomach pain and nausea. - Related Data Home Medications Medication Instructions Recorded Confirmed Atorvastatin Calcium [Lipitor] 20 mg PO HS 03/30/17 04/11/17 Carvedilol [Coreg] 12.5 mg PO BID 03/30/17 04/11/17 Cinacalcet [Sensipar] 30 mg PO HS 03/30/17 04/11/17 Clopidogrel [Plavix] 75 mg PO DAILY 03/30/17 04/11/17 Furosemide [Lasix] 40 mg PO DAILY 03/30/17 04/11/17 INSULIN LISPRO (For Pump) [humaLOG See Protocol SQ-PUMP CONTINUOUS 03/30/1701/20 (For Pump)] Lisinopril [Zestril] 10 mg PO HS 03/30/17 04/11/17 Multivitamins, Thera [Multivitamin 1 tab PO DAILY 03/30/17 04/11/17 (formulary)] Ranolazine [Ranexa] 1,000 mg PO DAILY 03/30/17 04/11/17 Sevelamer [Renvela] 2,400 mg PO DAILY PRN 03/30/17 04/11/17 Sevelamer [Renvela] 3,200 mg PO AC-TID 03/30/17 04/11/17 HYDROcodone/APAP 7.5-325MG [[place] 1 tab PO Q6H PRN 04/11/17 04/11/17 7.5-325] Isosorbide Mononitrate ER [Imdur] 60 mg PO DAILY 04/11/17 04/11/17 Previous Rx's Medication Instructions Recorded Levofloxacin [Levaquin] 500 mg PO Q48H #4 tab 04/04/17 Ondansetron [Zofran] 4 mg PO Q8HR PRN #15 tab 04/04/17 Allergies Allergy/AdvReac Type Severity Reaction Status Date / Time Penicillins Allergy Unknown Verified 04/11/17 11:34 Childhood Review of Systems ROS Statement: Those systems with pertinent positive or pertinent negative responses have been documented in the HPI. ROS Other: All systems not noted in ROS Statement are negative. Past Medical History Past Medical History: Coronary Artery Disease (CAD), Heart Failure, Diabetes Mellitus, Deep Vein Thrombosis (DVT), Hypertension, Renal Disease, Thyroid Disorder Additional Past Medical History / Comment(s): ESRD ON HD MWF History of Any Multi-Drug Resistant Organisms: None Reported Past Surgical History: Coronary Bypass/CABG Additional Past Surgical History / Comment(s): AVF , Aortic Valve replacement ( [place]), 2 CABG total 2 vessel each time. Past Anesthesia/Blood Transfusion Reactions: No Reported Reaction Past Psychological History: No Psychological Hx Reported Smoking Status: Former smoker Past Alcohol Use History: None Reported Past Drug Use History: None Reported - Past Family History Mother Family Medical History: Coronary Artery Disease (CAD), Myocardial Infarction (ME ), Renal Disease General Exam - General Exam Comments Initial Comments: This is a 62-year-old male. Patient does not appear to be in any acute distress. Limitations: no limitations General appearance: alert, in no apparent distress Head exam: Present: atraumatic, normocephalic, normal inspection Eye exam: Present: normal appearance, PERRL, other (Left eye periorbital swelling.). Absent: EOMI (Patient has a left cranial nerve III palsy. Eyelid is drooped. Patient is unable to look up without double vision. Patient is unable to have downward gaze.), scleral icterus, conjunctival injection, periorbital swelling ENT exam: Present: normal exam, mucous membranes moist Neck exam: Present: normal inspection. Absent: tenderness, meningismus, lymphadenopathy Respiratory exam: Present: normal lung sounds bilaterally. Absent: respiratory distress, wheezes, rales, rhonchi, stridor Cardiovascular Exam: Present: regular rate, normal rhythm, normal heart sounds. Absent: systolic murmur, diastolic murmur, rubs, gallop, clicks GI/Abdominal exam: Present: soft, normal bowel sounds. Absent: distended, tenderness, guarding, rebound, rigid Extremities exam: Present: normal inspection, full ROM, normal capillary refill. Absent: tenderness, pedal edema, joint swelling, calf tenderness Back exam: Present: normal inspection Neurological exam: Present: alert, oriented X3 Psychiatric exam: Present: normal affect, normal mood Skin exam: Present: warm, dry, intact, normal color. Absent: rash Course Vital Signs 04/11/17 04/11/17 10:55 13:33 Temperature 98.2 F Pulse Rate 71 63 Respiratory 18 17 Rate Blood Pressure 151/61 171/73 O2 Sat by Pulse 100 100 Oximetry Medical Decision Making - Medical Decision Making 62-year-old male with increased left eye irritation. Patient admitted one week ago and had a full evaluation was determined have a left sided third cranial nerve palsy. No significant reason to cause this palsy besides possibly related to his diabetes. Patient was given an MRI of the brain. No evidence of aneurysms or any abnormalities. Patient case assessed with Dr. Kumar. Dr. Monaco discussed this with Dr. Live patient's stage electrician helper. He is supposed to have an appointment tomorrow. Dog Races Manager states that he thought he had an appointment today and was upset that he was not seen today. He came to the emergency department to be evaluated by the stage electrician helper. Discussed that the patient needs to follow-up tomorrow with his scheduled appointment see on not be seeing the stage electrician helper today. Patient's lab work was reviewed. He is noted to have mildly elevated troponin however this appears to be chronic. Patient was informed of this. EKG shows no any evidence of any new changes. Patient will be discharged at this time with close follow-up with stage electrician helper. Return parameters were discussed. - Lab Data Result diagrams: 04/11/17 12:17 04/11/17 12:17 Lab Results 04/11/17 04/11/17 04/11/17 Range/Units 12:17 12:17 12:17 WBC 4.7 (3.8-10.6) k/uL RBC 3.63 L (4.30-5.90) m/uL Hgb 11.5 L (13.0-17.5) gm/dL Hct 32.9 L (39.0-53.0) % MCV 90.5 (80.0-100.0) fL MCH 31.7 (25.0-35.0) pg MCHC 35.0 (31.0-37.0) g/dL RDW 14.0 (11.5-15.5) % Plt Count 98 L (150-450) k/uL Neutrophils % 74 % Lymphocytes % 17 % Monocytes % 5 % Eosinophils % 2 % Basophils % 1 % Neutrophils # 3.5 (1.3-7.7) k/uL Lymphocytes # 0.8 L (1.0-4.8) k/uL Monocytes # 0.2 (0-1.0) k/uL Eosinophils # 0.1 (0-0.7) k/uL Basophils # 0.0 (0-0.2) k/uL Manual Slide Review Performed Poikilocytosis Slight PT (9.0-12.0) sec INR (<1.2) APTT (22.0-30.0) sec Sodium 137 (137-145) mmol/L Potassium 4.8 (3.5-5.1) mmol/L Chloride 99 (98-107) mmol/L Carbon Dioxide 27 (22-30) mmol/L Anion Gap 11 mmol/L BUN 39 H (9-20) mg/dL Creatinine 7.61 H* (0.66-1.25) mg/dL Est GFR (MDRD) Af Amer 9 (>60 ml/min/1.73 sqM) Est GFR (MDRD) Non-Af 7 (>60 ml/min/1.73 sqM) Glucose 272 H (74-99) mg/dL Calcium 10.1 (8.4-10.2) mg/dL Total Bilirubin 0.6 (0.2-1.3) mg/dL AST 24 (17-59) U/L ALT 35 (21-72) U/L Alkaline Phosphatase 93 (38-126) U/L Total Creatine Kinase 60 (55-170) U/L CK-MB (CK-2) 2.0 (0.0-2.4) ng/mL CK-MB (CK-2) Rel Index 3.3 Troponin I 0.068 H* (0.000-0.034) ng/mL Total Protein 6.0 L (6.3-8.2) g/dL Albumin 3.6 (3.5-5.0) g/dL Urine Color Urine Appearance (Clear) Urine pH (5.0-8.0) Ur Specific [place] (1.001-1.035) Urine Protein (Negative) Urine Glucose (UA) (Negative) Urine Ketones (Negative) Urine Blood (Negative) Urine Nitrite (Negative) Urine Bilirubin (Negative) Urine Urobilinogen (<2.0) mg/dL Ur Leukocyte Esterase (Negative) Urine RBC (0-5) /hpf Urine WBC (0-5) /hpf Urine Mucus (None) /hpf Urine Sperm (None) /hpf 04/11/17 04/11/17 Range/Units 12:17 12:17 WBC (3.8-10.6) k/uL RBC (4.30-5.90) m/uL Hgb (13.0-17.5) gm/dL Hct (39.0-53.0) % MCV (80.0-100.0) fL MCH (25.0-35.0) pg MCHC (31.0-37.0) g/dL RDW (11.5-15.5) % Plt Count (150-450) k/uL Neutrophils % % Lymphocytes % % Monocytes % % Eosinophils % % Basophils % % Neutrophils # (1.3-7.7) k/uL Lymphocytes # (1.0-4.8) k/uL Monocytes # (0-1.0) k/uL Eosinophils # (0-0.7) k/uL Basophils # (0-0.2) k/uL Manual Slide Review Poikilocytosis PT 11.2 (9.0-12.0) sec INR 1.1 (<1.2) APTT 24.0 (22.0-30.0) sec Sodium (137-145) mmol/L Potassium (3.5-5.1) mmol/L Chloride (98-107) mmol/L Carbon Dioxide (22-30) mmol/L Anion Gap mmol/L BUN (9-20) mg/dL Creatinine (0.66-1.25) mg/dL Est GFR (MDRD) Af Amer (>60 ml/min/1.73 sqM) Est GFR (MDRD) Non-Af (>60 ml/min/1.73 sqM) Glucose (74-99) mg/dL Calcium (8.4-10.2) mg/dL Total Bilirubin (0.2-1.3) mg/dL AST (17-59) U/L ALT (21-72) U/L Alkaline Phosphatase (38-126) U/L Total Creatine Kinase (55-170) U/L CK-MB (CK-2) (0.0-2.4) ng/mL CK-MB (CK-2) Rel Index Troponin I (0.000-0.034) ng/mL Total Protein (6.3-8.2) g/dL Albumin (3.5-5.0) g/dL Urine Color Yellow Urine Appearance Clear (Clear) Urine pH 8.5 H (5.0-8.0) Ur Specific [place] 1.006 (1.001-1.035) Urine Protein 2+ H (Negative) Urine Glucose (UA) 4+ H (Negative) Urine Ketones Negative (Negative) Urine Blood Negative (Negative) Urine Nitrite Negative (Negative) Urine Bilirubin Negative (Negative) Urine Urobilinogen <2.0 (<2.0) mg/dL Ur Leukocyte Esterase Negative (Negative) Urine RBC 1 (0-5) /hpf Urine WBC 1 (0-5) /hpf Urine Mucus Rare H (None) /hpf Urine Sperm Rare (None) /hpf 04/11/17 13:49 EKG shows sinus rhythm. With evidence of first-degree AV block. Evidence of left axis deviation. Septal infarct with age undetermined. Saturating 63 beats were minute. GA interval 240 ms. QRS duration 88 ms. QT QTc is 406/4: 15 milliseconds. - Radiology Data Radiology results: report reviewed Mild dermatitis changes, cerebrovascular disease. Patient's cervical os. No evidence of aneurysm or dissection. Disposition Clinical Impression: Left-sided third cranial nerve palsy on examination Disposition: HOME SELF-CARE Condition: Good Instructions: Strabismus in Adults (ED) Additional Instructions: Patient is to follow-up tomorrow with the stage electrician helper. Continue to take the medications as prescribed. Return to the emergency department if any alarming signs or symptoms occur. Referrals: Nonstaff,Physician [Primary Care Provider] - 1-2 days Jj Live MD [STAFF PHYSICIAN] - 1-2 days Time of Disposition: 14:22
[2017-04-11] MEDS ORDERED: ONDANSETRON 4 MG/2 ML VIAL IVP STA (12:35)
[2017-04-11 12:42] LABS: Calcium 10.1 mg/dL (8.4-10.2); Potassium 4.8 mmol/L (3.5-5.1); Total Bilirubin 0.6 mg/dL (0.2-1.3)
[2017-04-11 13:00] LABS: Basophils % (A) 1 %; CH 31.4; CHCM 34.9; Eosinophils # (A) 0.1 k/uL (0-0.7); Eosinophils % (A) 2 %; HCT 32.9 % (39.0-53.0); HDW 3.54; HGB 11.5 gm/dL (13.0-17.5); Luc # (Auto) 0.09; Luc % (Auto) 2; Lymphocytes # (A) 0.8 k/uL (1.0-4.8); Lymphocytes % (A) 17 %; MCH 31.7 pg (25.0-35.0); MCV 90.5 fL (80.0-100.0); Mean Platelet Volume 7.7; Monocytes # (A) 0.2 k/uL (0-1.0); Monocytes % (A) 5 %; Neutrophils # (A) 3.5 k/uL (1.3-7.7); Neutrophils % (A) 74 %; Poikilocytosis Slight; RBC 3.63 m/uL (4.30-5.90); WBC 4.7 k/uL (3.8-10.6); WBC (Perox) 4.68
[2017-04-11 13:09] LABS: Appearance,Urine Clear (Clear); Bilirubin,Urine Negative (Negative); Glucose,Urine (UA) 4+ (Negative); Ketones,Urine Negative (Negative); Leukocyte Esterase,Urine Negative (Negative); Mucus,Urine Rare /hpf; Nitrite,Urine Negative (Negative); PH, Urine 8.5 (5.0-8.0); Particle Count 773; Protein,Urine 2+ (Negative); RBC,Urine 1 /hpf (0-5); Specific Gravity,Urine 1.006 (1.001-1.035); Sperm,Urine Rare /hpf; UA Billing (MACRO vs. MICRO) MICRO; Urobilinogen,Urine <2.0 mg/dL (<2.0); WBC,Urine 1 /hpf (0-5)
[2017-04-11 13:10] LABS: Troponin I 0.068 ng/mL (0.000-0.034)
[2017-04-11 13:23] LABS: Manual Review Performed
[2017-04-11 13:34] VITALS: RESP 17
[2017-04-11 13:36] LABS: INR 1.1 (<1.2); Prothrombin Time 11.2 sec (9.0-12.0)
--- NOTE | 2017-04-11 13:45 | MR ---
EXAMINATION TYPE: MR angio head wo con DATE OF EXAM: 04/11/2017 COMPARISON: MR brain 04/02/2017 HISTORY: Left 3rd Nerve Palsy TECHNIQUE: Time of flight images focusing on the [place] of [place] were performed without contrast. FINDINGS: Internal carotid arteries, vertebrobasilar system are patent. There is no evident aneurysm or dissection. No vascular malformation. Atheromatous change is present within the internal carotid a rteries at the level of the skull base showing mild stenosis, wall irregularity in the left internal carotid artery. Ophthalmic arteries are patent. IMPRESSION: Mild atheromatous changes, cerebrovascular disease. Patent [place] of [place].
--- NOTE | 2017-04-11 14:11 | XR ---
EXAMINATION TYPE: XR chest 2V DATE OF EXAM: 04/11/2017 COMPARISON: NONE INDICATION: Altered mental status left-sided quaker pressure and pain TECHNIQUE: Frontal and lateral views of the chest are obtained. FINDINGS: The heart size is normal. The pulmonary vasculature is normal. The lungs are clear. No significant interval is evident IMPRESSION: 1. No acute pulmonary process.
[2017-04-11 14:45] VITALS: BP 165/79; PULSE 65; TEMP 98.3
== END 2017-04-11 14:44 | disposition home or self-care (01) ==
LOC: EC 10:52
DX: H49.02 Third [oculomotor] nerve palsy, left eye (principal); I25.10 Atherosclerotic heart disease of native coronary artery without angina pectoris; I13.11 Hypertensive heart and chronic kidney disease without heart failure, with stage 5 chronic kidney disease, or end stage renal disease; I50.9 Heart failure, unspecified; N18.6 End stage renal disease; E11.9 Type 2 diabetes mellitus without complications; E07.9 Disorder of thyroid, unspecified; Z99.2 Dependence on renal dialysis; Z95.1 Presence of aortocoronary bypass graft; Z87.891 Personal history of nicotine dependence; Z79.02 Long term (current) use of antithrombotics/antiplatelets; Z79.4 Long term (current) use of insulin; Z79.899 Other long term (current) drug therapy; Z88.0 Allergy status to penicillin
CPT/HCPCS: 36415; 93005; 80053; 82550; 82553; 84484; 85025; 85610; 85730; 81001; 71020; 70544; 99285; 96374; 96361 ×2; J2405

== ENCOUNTER → 2017-05-14 | Outpatient (CLI) | payer MEDICARE, BC ==
[2017-05-14 11:14] LABS: Calcium 9.2 mg/dL (8.4-10.2); Potassium 3.2 mmol/L (3.5-5.1); Total Bilirubin 0.6 mg/dL (0.2-1.3); Total Protein 6.3 g/dL (6.3-8.2)
== END | disposition home or self-care (01) ==
LOC: LABWHC1 09:49
PROVIDERS: ATTEND Internal Medicine Interventional Cardiology
DX: E78.2 Mixed hyperlipidemia (principal)
CPT/HCPCS: 36415; 80053; 80061

== ENCOUNTER → 2017-06-12 | Outpatient (CLI) | payer MEDICARE, BC ==
--- NOTE | 2017-06-12 21:11 | NM ---
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 Anterior projection images of the n josef and chest were obtained 10 minutes and 3 hours post injection. SPECT images of the neck and ches t were obtained and reconstructed in three axes. FINDINGS: Thyroid tracer washout: Delayed images demonstrate near-complete tracer washout from the thyroid asid e from 2 focal areas of persistent uptake, one along the lower right lobe and one along the upper lef t lobe. Parathyroid uptake: 3 hour delayed images show 2 foci of abnormal persistent uptake, one along the ri ght lower thyroid lobe and one along the left upper thyroid lobe. Normal uptake: There is physiological tracer uptake in the salivary glands. IMPRESSION: Focal delayed uptake in 2 areas, one along the right lower thyroid lobe and a second along the left u pper thyroid lobe. Double parathyroid adenomas are not excluded.
== END | disposition home or self-care (01) ==
LOC: RADUSWWP 11:02
PROVIDERS: ATTEND Internal Medicine Nephrology
DX: E83.52 Hypercalcemia (principal)
CPT/HCPCS: 78071; A9500

== ENCOUNTER 2017-10-09 04:44 | Inpatient (IN) | payer MEDICARE, BC ==
[2017-10-09] MEDS ORDERED: FUROSEMIDE 10 MG/ML 4 ML VIAL IV STA (05:07)
[2017-10-09] MEDS ORDERED: NITROGLYCERIN OINT 1 INCH/GM PACKET TOPICAL STA (05:08)
--- NOTE | 2017-10-09 05:19 | ED ---
SOB HPI - General Chief Complaint: Shortness of Breath Stated Complaint: ALIYAH,DIALYSIS PT Time Seen by Provider: 10/09/17 04:57 Source: patient Mode of arrival: wheelchair Limitations: no limitations - History of Present Illness Initial Comments: This patient is a 62-year-old man who presents to be evaluate for shortness of breath. The patient states that this is been coming on over the course the past couple of hours. He also has had a little bit of a cough, without much sputum. Patient denies chest pain. Denies leg pain or swelling. He is an end- stage renal dialysis patient who states that he had is normal dialysis session yesterday. He states that at the end they did have to give him some IV fluid because his blood pressure was low at that time. MD Complaint: shortness of breath -: hour(s) Consistency: constant Improves With: nothing Worsens With: nothing Known History Of: other (Dialysis) Associated Symptoms: cough Treatments Prior to Arrival: none - Related Data Home Medications Medication Instructions Recorded Confirmed Atorvastatin Calcium [Lipitor] 20 mg PO DAILY 03/30/17 10/10/17 Carvedilol [Coreg] 12.5 mg PO BID 03/30/17 10/09/17 Cinacalcet [Sensipar] 60 mg PO DAILY@1730 03/30/17 10/10/17 Clopidogrel [Plavix] 75 mg PO DAILY 03/30/17 10/09/17 Furosemide [Lasix] 40 mg PO DAILY 03/30/17 10/09/17 INSULIN LISPRO (For Pump) [humaLOG See Protocol SQ-PUMP CONTINUOUS 03/30/1701/21 (For Pump)] Lisinopril [Zestril] 10 mg PO DAILY@1730 03/30/17 10/10/17 Ranolazine [Ranexa] 1,000 mg PO DAILY 03/30/17 10/09/17 Sevelamer [Renvela] 2,400 mg PO BID PRN 03/30/17 10/09/17 Sevelamer [Renvela] 3,200 mg PO AC-TID 03/30/17 10/09/17 Isosorbide Mononitrate ER [Imdur] 60 mg PO DAILY 04/11/17 10/09/17 Dialyvite 1 tab PO DAILY 10/09/17 10/09/17 Allergies Allergy/AdvReac Type Severity Reaction Status Date / Time Penicillins Allergy Unknown Verified 10/09/17 07:05 Childhood Review of Systems ROS Statement: Those systems with pertinent positive or pertinent negative responses have been documented in the HPI. ROS Other: All systems not noted in ROS Statement are negative. Constitutional: Denies: fever, chills, weakness Respiratory: Reports: cough, dyspnea. Denies: hemoptysis Cardiovascular: Denies: chest pain, palpitations, orthopnea, syncope Gastrointestinal: Denies: abdominal pain, vomiting, diarrhea Genitourinary: Denies: dysuria Musculoskeletal: Denies: back pain Skin: Denies: rash Neurological: Denies: headache, weakness, numbness Past Medical History Past Medical History: Coronary Artery Disease (CAD), Chest Pain / Angina, Heart Failure, Diabetes Mellitus, Hypertension, Myocardial Infarction ([place]), Renal Disease, Thyroid Disorder, Vascular Disorder Additional Past Medical History / Comment(s): IDDM type I with insulin pump, ESRD with hemodialysis M,W,F-pt missed Wed dialysis this week, iron deficiency anemia, thyroid currently being worked up, L eye occular palsey/double vision- resolved palsey and now has "fuzzy" vision with L eye-sees Dr. Live. Last Myocardial Infarction Date:: 2006? History of Any Multi-Drug Resistant Organisms: None Reported Past Surgical History: Cardiac Valve Replacement, Coronary Bypass/CABG, Heart Catheterization, Heart Catheterization With Stent Additional Past Surgical History / Comment(s): AVF R forearm, Aortic Valve replacement (Swine), PCI with stents that collapsed, CABG twice-first at [facility] and 2nd time at [facility]-had infection with 2nd surgery and had extended recovery, umbilical hernia repair, colonoscopy with benign polypectomies. Past Anesthesia/Blood Transfusion Reactions: No Reported Reaction Additional Past Anesthesia/Blood Transfusion Reaction / Comment(s): Pt has received blood in past without reaction. Date of Last Stent Placement:: 2006? Past Psychological History: No Psychological Hx Reported Smoking Status: Former smoker Past Alcohol Use History: None Reported Past Drug Use History: None Reported - Past Family History Mother Family Medical History: Renal Disease Father Family Medical History: No Reported History Additional Family Medical History / Comment(s): Pt states father is healthy and is in his mid-late 80s. General Exam Limitations: no limitations General appearance: alert, in distress (Mild respiratory distress) Head exam: Present: atraumatic, normocephalic Eye exam: Present: normal appearance. Absent: scleral icterus, conjunctival injection Neck exam: Present: normal inspection, full ROM Respiratory exam: Present: respiratory distress, rales (Bilateral bases), other (Post surgical Sternal defect). Absent: wheezes, rhonchi, stridor, accessory muscle use, decreased breath sounds, prolonged expiratory Cardiovascular Exam: Present: regular rate, normal rhythm, gallop. Absent: systolic murmur, diastolic murmur, rubs GI/Abdominal exam: Present: soft. Absent: distended, tenderness, guarding, rebound, mass Extremities exam: Present: normal inspection, normal capillary refill. Absent: pedal edema, calf tenderness Back exam: Present: normal inspection. Absent: CVA tenderness (R), CVA tenderness (L) Neurological exam: Present: alert Skin exam: Present: warm, dry, intact, normal color. Absent: rash Course Vital Signs 10/09/17 10/09/17 10/09/17 04:47 05:45 06:00 Temperature 97.3 F L Pulse Rate 77 76 Respiratory 22 24 20 Rate Blood Pressure 189/82 183/79 O2 Sat by Pulse 96 98 Oximetry 10/09/17 10/09/17 10/09/17 06:40 07:31 09:14 Temperature Pulse Rate 73 74 75 Respiratory 18 22 26 H Rate Blood Pressure 175/76 165/72 166/75 O2 Sat by Pulse 98 98 100 Oximetry 10/09/17 10/09/17 10:01 11:21 Temperature 98.1 F Pulse Rate 69 Respiratory 24 22 Rate Blood Pressure 154/56 O2 Sat by Pulse 100 Oximetry Medical Decision Making - Lab Data Result diagrams: 10/09/17 05:16 10/10/17 06:15 Lab Results 10/09/17 10/09/17 10/09/17 Range/Units 05:16 05:16 05:16 WBC 4.2 (3.8-10.6) k/uL RBC 3.66 L (4.30-5.90) m/uL Hgb 10.8 L (13.0-17.5) gm/dL Hct 32.6 L (39.0-53.0) % MCV 89.1 (80.0-100.0) fL MCH 29.7 (25.0-35.0) pg MCHC 33.3 (31.0-37.0) g/dL RDW 15.0 (11.5-15.5) % Plt Count 123 L (150-450) k/uL Neutrophils % 76 % Lymphocytes % 15 % Monocytes % 4 % Eosinophils % 2 % Basophils % 1 % Neutrophils # 3.2 (1.3-7.7) k/uL Lymphocytes # 0.6 L (1.0-4.8) k/uL Monocytes # 0.2 (0-1.0) k/uL Eosinophils # 0.1 (0-0.7) k/uL Basophils # 0.0 (0-0.2) k/uL Poikilocytosis Slight PT 10.2 (9.0-12.0) sec INR 1.0 (<1.2) APTT 23.0 (22.0-30.0) sec D-Dimer 0.62 H (<0.60) mg/L FEU Sodium 138 (137-145) mmol/L Potassium 4.7 (3.5-5.1) mmol/L Chloride 97 L (98-107) mmol/L Carbon Dioxide 30 (22-30) mmol/L Anion Gap 11 mmol/L BUN 53 H (9-20) mg/dL Creatinine 5.20 H* (0.66-1.25) mg/dL Est GFR (MDRD) Af Amer 14 (>60 ml/min/1.73 sqM) Est GFR (MDRD) Non-Af 11 (>60 ml/min/1.73 sqM) Glucose 453 H* (74-99) mg/dL Estimated Ave Glu mg/dL Hemoglobin A1c (4.0-6.0) % Calcium 10.2 (8.4-10.2) mg/dL Magnesium 2.3 (1.6-2.3) mg/dL Total Bilirubin 0.6 (0.2-1.3) mg/dL AST 33 (17-59) U/L ALT 44 (21-72) U/L Alkaline Phosphatase 105 (38-126) U/L Troponin I (0.000-0.034) ng/mL NT-Pro-B Natriuret Pep pg/mL Total Protein 5.8 L (6.3-8.2) g/dL Albumin 3.6 (3.5-5.0) g/dL Urine Color Urine Appearance (Clear) Urine pH (5.0-8.0) Ur Specific [place] (1.001-1.035) Urine Protein (Negative) Urine Glucose (UA) (Negative) Urine Ketones (Negative) Urine Blood (Negative) Urine Nitrite (Negative) Urine Bilirubin (Negative) Urine Urobilinogen (<2.0) mg/dL Ur Leukocyte Esterase (Negative) Urine RBC (0-5) /hpf Urine WBC (0-5) /hpf Urine Mucus (None) /hpf 10/09/17 10/09/17 10/09/17 Range/Units 05:16 05:16 05:16 WBC (3.8-10.6) k/uL RBC (4.30-5.90) m/uL Hgb (13.0-17.5) gm/dL Hct (39.0-53.0) % MCV (80.0-100.0) fL MCH (25.0-35.0) pg MCHC (31.0-37.0) g/dL RDW (11.5-15.5) % Plt Count (150-450) k/uL Neutrophils % % Lymphocytes % % Monocytes % % Eosinophils % % Basophils % % Neutrophils # (1.3-7.7) k/uL Lymphocytes # (1.0-4.8) k/uL Monocytes # (0-1.0) k/uL Eosinophils # (0-0.7) k/uL Basophils # (0-0.2) k/uL Poikilocytosis PT (9.0-12.0) sec INR (<1.2) APTT (22.0-30.0) sec D-Dimer (<0.60) mg/L FEU Sodium (137-145) mmol/L Potassium (3.5-5.1) mmol/L Chloride (98-107) mmol/L Carbon Dioxide (22-30) mmol/L Anion Gap mmol/L BUN (9-20) mg/dL Creatinine (0.66-1.25) mg/dL Est GFR (MDRD) Af Amer (>60 ml/min/1.73 sqM) Est GFR (MDRD) Non-Af (>60 ml/min/1.73 sqM) Glucose (74-99) mg/dL Estimated Ave Glu mg/dL 117 Hemoglobin A1c 5.7 (4.0-6.0) % Calcium (8.4-10.2) mg/dL Magnesium (1.6-2.3) mg/dL Total Bilirubin (0.2-1.3) mg/dL AST (17-59) U/L ALT (21-72) U/L Alkaline Phosphatase (38-126) U/L Troponin I 0.122 H* (0.000-0.034) ng/mL NT-Pro-B Natriuret Pep 77764 pg/mL Total Protein (6.3-8.2) g/dL Albumin (3.5-5.0) g/dL Urine Color Urine Appearance (Clear) Urine pH (5.0-8.0) Ur Specific [place] (1.001-1.035) Urine Protein (Negative) Urine Glucose (UA) (Negative) Urine Ketones (Negative) Urine Blood (Negative) Urine Nitrite (Negative) Urine Bilirubin (Negative) Urine Urobilinogen (<2.0) mg/dL Ur Leukocyte Esterase (Negative) Urine RBC (0-5) /hpf Urine WBC (0-5) /hpf Urine Mucus (None) /hpf 10/09/17 Range/Units 06:32 WBC (3.8-10.6) k/uL RBC (4.30-5.90) m/uL Hgb (13.0-17.5) gm/dL Hct (39.0-53.0) % MCV (80.0-100.0) fL MCH (25.0-35.0) pg MCHC (31.0-37.0) g/dL RDW (11.5-15.5) % Plt Count (150-450) k/uL Neutrophils % % Lymphocytes % % Monocytes % % Eosinophils % % Basophils % % Neutrophils # (1.3-7.7) k/uL Lymphocytes # (1.0-4.8) k/uL Monocytes # (0-1.0) k/uL Eosinophils # (0-0.7) k/uL Basophils # (0-0.2) k/uL Poikilocytosis PT (9.0-12.0) sec INR (<1.2) APTT (22.0-30.0) sec D-Dimer (<0.60) mg/L FEU Sodium (137-145) mmol/L Potassium (3.5-5.1) mmol/L Chloride (98-107) mmol/L Carbon Dioxide (22-30) mmol/L Anion Gap mmol/L BUN (9-20) mg/dL Creatinine (0.66-1.25) mg/dL Est GFR (MDRD) Af Amer (>60 ml/min/1.73 sqM) Est GFR (MDRD) Non-Af (>60 ml/min/1.73 sqM) Glucose (74-99) mg/dL Estimated Ave Glu mg/dL Hemoglobin A1c (4.0-6.0) % Calcium (8.4-10.2) mg/dL Magnesium (1.6-2.3) mg/dL Total Bilirubin (0.2-1.3) mg/dL AST (17-59) U/L ALT (21-72) U/L Alkaline Phosphatase (38-126) U/L Troponin I (0.000-0.034) ng/mL NT-Pro-B Natriuret Pep pg/mL Total Protein (6.3-8.2) g/dL Albumin (3.5-5.0) g/dL Urine Color Light Yellow Urine Appearance Clear (Clear) Urine pH 8.0 (5.0-8.0) Ur Specific [place] 1.006 (1.001-1.035) Urine Protein 2+ H (Negative) Urine Glucose (UA) 4+ H (Negative) Urine Ketones Negative (Negative) Urine Blood Small H (Negative) Urine Nitrite Negative (Negative) Urine Bilirubin Negative (Negative) Urine Urobilinogen <2.0 (<2.0) mg/dL Ur Leukocyte Esterase Negative (Negative) Urine RBC 4 (0-5) /hpf Urine WBC <1 (0-5) /hpf Urine Mucus Rare H (None) /hpf - EKG Data -: EKG Interpreted by Pa EKG shows normal: sinus rhythm, axis (Left axis deviation.), intervals (FL interval is 224 ms, consistent with a first-degree AV block. The QRS and QT durations are normal.), QRS complexes (Possible old septal infarct.), ST-T waves (There are T inversions in 1 and aVL consistent with possible lateral ischemia.) Interpretation: other (Similar with the comparison ECG.) Disposition Clinical Impression: Volume overload, ESRD (end stage renal disease) on dialysis Disposition: ADMITTED IP TO THIS HOSP Condition: Stable
[2017-10-09 05:32] LABS: Basophils % (A) 1 %; Eosinophils # (A) 0.1 k/uL (0-0.7); Eosinophils % (A) 2 %; HCT 32.6 % (39.0-53.0); HGB 10.8 gm/dL (13.0-17.5); Lymphocytes # (A) 0.6 k/uL (1.0-4.8); Lymphocytes % (A) 15 %; MCH 29.7 pg (25.0-35.0); MCHC 33.3 g/dL (31.0-37.0); MCV 89.1 fL (80.0-100.0); Mean Platelet Volume 7.5; Monocytes # (A) 0.2 k/uL (0-1.0); Monocytes % (A) 4 %; Neutrophils # (A) 3.2 k/uL (1.3-7.7); Neutrophils % (A) 76 %; Platelet Count 123 k/uL (150-450); Poikilocytosis Slight; RBC 3.66 m/uL (4.30-5.90); WBC 4.2 k/uL (3.8-10.6)
[2017-10-09 05:45] LABS: Albumin 3.6 g/dL (3.5-5.0); Calcium 10.2 mg/dL (8.4-10.2); D-Dimer 0.62 mg/L FEU (<0.60); Potassium 4.7 mmol/L (3.5-5.1); Prothrombin Time 10.2 sec (9.0-12.0); Total Bilirubin 0.6 mg/dL (0.2-1.3); Total Protein 5.8 g/dL (6.3-8.2)
--- NOTE | 2017-10-09 05:48 | XR ---
EXAM: XR Chest, 1 View CLINICAL HISTORY: ITS.REASON XR Reason: dyspnea TECHNIQUE: Frontal view of the chest. COMPARISON: Chest x-ray dated 06/01/2017. FINDINGS: Lungs: Reidentified prominence of the interstitial structures. Pleural space: Unremarkable. No pneumothorax. Heart: Reidentified moderate cardiomegaly. Mediastinum: Unremarkable. Bones/joints: Unremarkable. IMPRESSION: Reidentified prominence of the interstitial structures. This is most suspicious for pulmonary congestion/interstitial edema.
[2017-10-09] MEDS ORDERED: ENALAPRILAT 1.25 MG/ML 1 ML VIAL IVP STA (05:58)
[2017-10-09] MEDS ORDERED: INSULIN REGULAR 100 UNIT/ML VIAL SQ STA (06:01)
[2017-10-09] MEDS ORDERED: NALOXONE 0.4 MG/ML 1 ML VIAL IV PRN (06:50)
[2017-10-09] MEDS ORDERED: ACETAMINOPHEN TAB 325 MG TAB PO PRN (06:50)
[2017-10-09 06:53] LABS: Appearance,Urine Clear (Clear); Bilirubin,Urine Negative (Negative); Blood,Urine Small (Negative); Color,Urine Light Yellow; Glucose,Urine (UA) 4+ (Negative); Ketones,Urine Negative (Negative); Leukocyte Esterase,Urine Negative (Negative); Mucus,Urine Rare /hpf; Protein,Urine 2+ (Negative); RBC,Urine 4 /hpf (0-5); Specific Gravity,Urine 1.006 (1.001-1.035); Urobilinogen,Urine <2.0 mg/dL (<2.0); WBC,Urine <1 /hpf (0-5)
[2017-10-09 07:23] LABS: Glucose,Whole Blood 408 mg/dL (75-99)
[2017-10-09 09:50] LABS: Glucose,Whole Blood 357 mg/dL (75-99)
[2017-10-09 11:45] LABS: Glucose,Whole Blood 362 mg/dL (75-99)
[2017-10-09] MEDS: SODIUM CHLORIDE 0.9% 1,000 ML IV SCH (12:24)
[2017-10-09] MEDS ORDERED: INSULIN PUMP BASAL RATES 1 EACH MISC MISCELLANE PRN (12:55)
[2017-10-09] MEDS ORDERED: INSPUCOR MISCELLANE PRN (12:55)
[2017-10-09] MEDS ORDERED: INSULIN ASPART 100 UNIT/ML 1 ML 10 ML VIAL SQ PRN (12:55)
[2017-10-09] MEDS: INSULIN PUMP MEAL BOLUS 1 UNIT MISC MISCELLANE SCH ×3 (13:00→21:02)
[2017-10-09] MEDS ORDERED: INSULIN PUMP TARGET GLUCOSE 1 EACH MISC MISCELLANE PRN (15:23)
[2017-10-09] MEDS ORDERED: INSULIN PUMP ACTIVE INSULIN 1 EACH MISC MISCELLANE PRN (15:23)
[2017-10-09 17:15] LABS: Glucose,Whole Blood 127 mg/dL (75-99)
[2017-10-09] MEDS ORDERED: LISINOPRIL 10 MG TAB PO SCH (17:30)
[2017-10-09] MEDS ORDERED: CINACALCET 30 MG TAB PO SCH ×2 (17:30→18:00)
[2017-10-09] MEDS: CARVEDILOL 12.5 MG TAB PO SCH (17:35)
[2017-10-09] MEDS: SEVELAMER 800 MG TAB PO SCH (17:35)
--- NOTE | 2017-10-09 17:42 | P.HPIM ---
History of Present Illness H&P Date: 10/09/17 Chief Complaint: Shortness of breath Patient is a 62-year-old male with a known history of type 1 diabetes mellitus, on insulin pump, coronary artery disease and CABG 2, aortic valve replacement, PCI, hypertension, hyperparathyroidism currently scheduled for parathyroidectomy and ESRD on hemodialysis Sunday where right arm AV fistula came to ER with complaints of shortness of breath. Patient did have hemodialysis yesterday with 1.7 L fluid removal as his usual. Patient says that he was having shortness of breath. Hours prior to admission. Did have cough without sputum production. Denied any chest pain. No nausea vomiting or diarrhea. No recent illnesses otherwise. Chest x-ray showed congestion/pulmonary edema. BNP 12,000 Patient is getting hemodialysis at this time. Review of Systems Constitutional: Patient denies any fever or chills . No generalized weakness or weight loss. Abdomen: Patient denied nausea vomiting and diarrhea and abdominal pain. Cardiovascular: Patient denies any chest pain or short of breath no palpitations. Respiratory: Cough without sputum production and shortness of breath Neurologic: Patient denied any numbness or tingling headache. Musculoskeletal: Patient denies any complaints of joint swelling or deformity. Skin: Negative Psychiatric: Negative Endocrine: No heat or cold intolerance. No recent weight gain. Genitourinary: No dysuria or hematuria. All other 14 point ROS negative except the above Past Medical History Past Medical History: Coronary Artery Disease (CAD), Chest Pain / Angina, Heart Failure, Diabetes Mellitus, Eye Disorder, Hypertension, Myocardial Infarction ( [place]), Renal Disease, Thyroid Disorder, Vascular Disorder Additional Past Medical History / Comment(s): IDDM type I with insulin pump, ESRD with hemodialysis M,W,F, pt states has had a couple MIs, iron deficiency anemia, thyroid currently being worked up/ hypercalcemia- seeing a surgeon this , L eye occular palsey/double vision-resolved palsey then had "fuzzy" vision with L eye which has also reolved-sees Dr. Live. Last Myocardial Infarction Date:: 2014 History of Any Multi-Drug Resistant Organisms: None Reported Past Surgical History: Cardiac Valve Replacement, Coronary Bypass/CABG, Heart Catheterization, Heart Catheterization With Stent Additional Past Surgical History / Comment(s): AVF R forearm, Aortic Valve replacement (Swine), PCI with stents that collapsed, CABG twice-first at [facility] and 2nd time at [place]-had infection with 2nd surgery and had extended recovery, umbilical hernia repair, colonoscopy with benign polypectomies. Past Anesthesia/Blood Transfusion Reactions: No Reported Reaction Additional Past Anesthesia/Blood Transfusion Reaction / Comment(s): Pt has received blood in past without reaction. Date of Last Stent Placement:: 2000 Smoking Status: Former smoker - Past Family History Mother Family Medical History: Renal Disease Additional Family Medical History / Comment(s): Mother at the age of 89yrs. Father Family Medical History: No Reported History Additional Family Medical History / Comment(s): Pt states father is healthy and is in his mid-late 80s. Medications and Allergies Home Medications Medication Instructions Recorded Confirmed Type Atorvastatin Calcium [Lipitor] 20 mg PO HS 03/30/17 10/09/17 History Carvedilol [Coreg] 12.5 mg PO BID 03/30/17 10/09/17 History Cinacalcet [Sensipar] 30 mg PO DAILY 03/30/17 10/09/17 History Clopidogrel [Plavix] 75 mg PO DAILY 03/30/17 10/09/17 History Furosemide [Lasix] 40 mg PO DAILY 03/30/17 10/09/17 History INSULIN LISPRO (For Pump) [humaLOG See Protocol SQ-PUMP CONTINUOUS 03/30/1701/21 History (For Pump)] Lisinopril [Zestril] 10 mg PO DAILY 03/30/17 10/09/17 History Ranolazine [Ranexa] 1,000 mg PO DAILY 03/30/17 10/09/17 History Sevelamer [Renvela] 2,400 mg PO BID PRN 03/30/17 10/09/17 History Sevelamer [Renvela] 3,200 mg PO AC-TID 03/30/17 10/09/17 History Isosorbide Mononitrate ER [Imdur] 60 mg PO DAILY 04/11/17 10/09/17 History Dialyvite 1 tab PO DAILY 10/09/17 10/09/17 History Allergies Allergy/AdvReac Type Severity Reaction Status Date / Time Penicillins Allergy Unknown Verified 10/09/17 07:05 Childhood Physical Exam Vitals: Vital Signs Temp Pulse Resp BP Pulse Ox 10/09/17 11:21 98.1 F 69 22 154/56 100 10/09/17 10:01 24 10/09/17 09:14 75 26 H 166/75 100 10/09/17 07:31 74 22 165/72 98 10/09/17 06:40 73 18 175/76 98 10/09/17 06:00 76 20 183/79 98 10/09/17 05:45 24 10/09/17 04:47 97.3 F L 77 22 189/82 96 Intake and Output 10/08/17 10/09/17 10/09/17 22:59 06:59 14:59 Other: Weight 97.069 kg PHYSICAL EXAMINATION: Patient is lying in the bed comfortably, no acute distress, awake alert and oriented.. HEENT: Normocephalic. Neck is supple. Pupils reactive. Nostrils clear. Oral cavity is moist. Ears reveal no drainage. Neck reveals no JVD, carotid bruits, or thyromegaly. CHEST EXAMINATION: Trachea is central. Symmetrical expansion. Bilateral diminished air entry with basilar crackles present CARDIAC: Normal S1, S2 with no gallops. No murmurs ABDOMEN: Soft. Bowel sounds normal. No organomegaly. No abdominal bruits. Extremities: Trace edema. No clubbing or cyanosis Neurologically awake, alert, oriented x3 with well-coordinated movements. No focal deficits noted Skin: No rash or skin lesions. Psychiatric: Coperative. Nonsuicidal Musculoskeletal: No joint swelling or deformity. Normal range of motion. Results CBC & Chem 7: 10/09/17 05:16 10/09/17 05:16 Labs: Abnormal Lab Results - Last 24 Hours (Table) 10/09/17 10/09/17 10/09/17 Range/Units 05:16 05:16 05:16 RBC 3.66 L (4.30-5.90) m/uL Hgb 10.8 L (13.0-17.5) gm/dL Hct 32.6 L (39.0-53.0) % Plt Count 123 L (150-450) k/uL Lymphocytes # 0.6 L (1.0-4.8) k/uL D-Dimer 0.62 H (<0.60) mg/L FEU Chloride 97 L (98-107) mmol/L BUN 53 H (9-20) mg/dL Creatinine 5.20 H* (0.66-1.25) mg/dL Glucose 453 H* (74-99) mg/dL POC Glucose (mg/dL) (75-99) mg/dL Troponin I (0.000-0.034) ng/mL Total Protein 5.8 L (6.3-8.2) g/dL Urine Protein (Negative) Urine Glucose (UA) (Negative) Urine Blood (Negative) Urine Mucus (None) /hpf 10/09/17 10/09/17 10/09/17 Range/Units 05:16 06:32 07:20 RBC (4.30-5.90) m/uL Hgb (13.0-17.5) gm/dL Hct (39.0-53.0) % Plt Count (150-450) k/uL Lymphocytes # (1.0-4.8) k/uL D-Dimer (<0.60) mg/L FEU Chloride (98-107) mmol/L BUN (9-20) mg/dL Creatinine (0.66-1.25) mg/dL Glucose (74-99) mg/dL POC Glucose (mg/dL) 408 H (75-99) mg/dL Troponin I 0.122 H* (0.000-0.034) ng/mL Total Protein (6.3-8.2) g/dL Urine Protein 2+ H (Negative) Urine Glucose (UA) 4+ H (Negative) Urine Blood Small H (Negative) Urine Mucus Rare H (None) /hpf 10/09/17 10/09/17 Range/Units 09:47 11:43 RBC (4.30-5.90) m/uL Hgb (13.0-17.5) gm/dL Hct (39.0-53.0) % Plt Count (150-450) k/uL Lymphocytes # (1.0-4.8) k/uL D-Dimer (<0.60) mg/L FEU Chloride (98-107) mmol/L BUN (9-20) mg/dL Creatinine (0.66-1.25) mg/dL Glucose (74-99) mg/dL POC Glucose (mg/dL) 357 H 362 H (75-99) mg/dL Troponin I (0.000-0.034) ng/mL Total Protein (6.3-8.2) g/dL Urine Protein (Negative) Urine Glucose (UA) (Negative) Urine Blood (Negative) Urine Mucus (None) /hpf Thrombosis Risk Factor Assmnt - DVT/VTE Prophylaxis DVT/VTE Prophylaxis: Pharmacologic Prophylaxis ordered - Choose All That Apply Any of the Below Risk Factors Present?: Yes Each Factor Represents 1 point: Heart failure (<1month), Obesity (BMI >25) Other Risk Factors: Yes Each Risk Factor Represents 2 Points: Age 61-74 years Other congenital or acquired thrombophilia - If yes, enter type in comment: No Thrombosis Risk Factor Assessment Total Risk Factor Score: 4 Thrombosis Risk Factor Assessment Level: Moderate Risk Assessment and Plan Assessment: Acute shortness of breath due to fluid overload/pulmonary vascular congestion ESRD on hemodialysis Sunday via AV fistula Acute on chronic CHF with diastolic dysfunction. Last echocardiogram in May 2017 showed normal EF Tertiary hyperparathyroidism. Scheduled for parathyroidectomy as an outpatient Coronary artery disease with history of CABG 2 History of PCI History of Aortic Valve replacement (Swine) Hypertension Hyperlipidemia Diabetes type 1 insulin-dependent on insulin pump History of [place] Iron deficiency anemia Left eye ocular patency/double vision. DVT prophylaxis Plan: Patient be continued on home medications and is getting hemodialysis. We will continue the oxygen therapy and follow up closely. Nephrology is on board. Further recommendations based on the clinical course. Prognosis is guarded with multiple medical problems and comorbid conditions. Time with Patient: Greater than 30
[2017-10-09] MEDS ORDERED: CINACALCET 30 MG TAB PO ONE (17:45)
[2017-10-09] MEDS ORDERED: ATORVASTATIN 20 MG TAB PO SCH (21:00)
[2017-10-09 21:04] LABS: Glucose,Whole Blood 315 mg/dL (75-99)
[2017-10-09 21:16] LABS: Hemoglobin A1C 5.7 % (4.0-6.0)
--- NOTE | 2017-10-09 22:30 | CONS ---
CONSULTATION DATE OF CONSULTATION: 10/09/2017 REASON FOR CONSULT: End-stage renal disease. HISTORY OF PRESENT ILLNESS: Patient is a 62-year-old male who was admitted to the hospital with significant shortness of breath. He is normally maintained on a Sunday, Sunday, Sunday schedule with a right forearm AV fistula. The patient stated that he had his usual ultrafiltration at dialysis; however, since his blood pressure was low he received about 200 mL of saline. He denies having had a history of fluid abuse as outpatient. The patient feels that he may have been gaining weight over the past few weeks, which is mainly the fluid weight. He denied any chest pains. No fever, chills or cough. The patient was dialyzed earlier this morning and he is scheduled again for hemodialysis tomorrow, which is his usual day. PAST MEDICAL HISTORY: 1. Coronary artery disease. 2. Type 2 diabetes. 3. Hypertension. 4. History of [place]. 5. Hypothyroidism. 6. Peripheral vascular disease. 7. CKD mineral bone disorder. 8. Valvular heart disease. 9. History of endocarditis. PAST SURGICAL HISTORY: 1. AV fistula, right forearm. 2. Aortic valve replacement, porcine valve. 3. Coronary artery bypass surgery. 4. Coronary stents. 5. Cardiac catheterization. 6. Umbilical hernia repair. 7. Colonoscopies. SOCIAL HISTORY: Patient is a former smoker. No history of drug abuse or alcohol abuse. MEDICATIONS: Medications at home prior to admission included: 1. Lipitor. 2. Coreg. 3. Sensipar. 4. Plavix. 5. Lasix. 6. Insulin. 7. Zestril. 8. Ranexa. 9. [place]. 10.Imdur. 11.Zofran p.r.n. ALLERGIES: Include PENICILLIN. PHYSICAL EXAMINATION: Patient is comfortable, awake, alert, oriented x3. He is not in any acute distress. Blood pressure is 178/73, heart rate 63 per minute. Patient is afebrile. EXAMINATION OF THE HEART: S1, S2. EXAMINATION OF LUNGS: Bilateral breath sounds are heard. ABDOMEN: Soft, non-tender. Examination of lower extremities shows edema 1+ bilaterally. CHEF DE CUISINE exam is grossly intact. LABS: Sodium 138, potassium 4.7, hemoglobin 10.8. Calcium was 10.2. Chest x-ray shows evidence of pulmonary vascular congestion and interstitial edema. ASSESSMENT: 1. End-stage renal disease, on hemodialysis on Sunday, Sunday, Sunday schedule via right forearm AV fistula. 2. Fluid overload, currently improved. The patient will be dialyzed again in a.m. He is advised regarding fluid restriction and trying to decrease his weight gains in between treatments. 3. Anemia of chronic disease. 4. Type 1 diabetes, maintained on insulin. 5. History of aortic valve disease, status post porcine aortic valve replacement. 6. Coronary artery disease, status post coronary artery bypass surgery. PLAN: Repeat hemodialysis in a.m. Increase UF as tolerated. Patient is hypertensive. Hopefully we can get about 4 L. Thank you for this consultation. Will continue to follow the patient with you during his hospitalization. MMODL / IJN: [id number] /
[2017-10-10 06:10] LABS: Glucose,Whole Blood 272 mg/dL (75-99)
[2017-10-10] MEDS: INSULIN PUMP MEAL BOLUS 1 UNIT MISC MISCELLANE SCH ×2 (06:15→12:21)
[2017-10-10] MEDS: SODIUM CHLORIDE 0.9% 1,000 ML IV SCH (06:19)
[2017-10-10] MEDS: CARVEDILOL 12.5 MG TAB PO SCH ×2 (06:21→17:37)
[2017-10-10] MEDS: SEVELAMER 800 MG TAB PO SCH ×3 (06:21→17:37)
[2017-10-10 07:12] LABS: Calcium 10.6 mg/dL (8.4-10.2); Potassium 3.9 mmol/L (3.5-5.1)
[2017-10-10] MEDS: FOLIC ACID-VIT B COMPLEX-VIT C 1 CAP PO SCH ×2 (07:56→07:59)
[2017-10-10 08:02] VITALS: RESP 18
[2017-10-10] MEDS ORDERED: RANOLAZINE 500 MG TAB.ER.12H PO SCH (09:00)
[2017-10-10] MEDS ORDERED: FUROSEMIDE 40 MG TAB PO SCH (09:00)
[2017-10-10] MEDS ORDERED: ISOSORBIDE MONONITRATE ER 60 MG TAB.ER.24H PO SCH (09:00)
[2017-10-10] MEDS ORDERED: CLOPIDOGREL 75 MG TAB PO SCH (09:00)
[2017-10-10] MEDS ORDERED: ATORVASTATIN 20 MG TAB PO SCH (09:00)
[2017-10-10 11:16] VITALS: BP 168/82; PULSE 66; TEMP 97.9
[2017-10-10] MEDS ORDERED: FOLIC ACID-VIT B COMPLEX-VIT C 1 CAP PO SCH (12:00)
[2017-10-10 12:12] LABS: Glucose,Whole Blood 134 mg/dL (75-99)
[2017-10-10 12:16] LABS: Hepatitis B Surface AB- Quant 91.2 mIU/mL
[2017-10-10 13:38] VITALS: BMI 31.4
--- NOTE | 2017-10-10 14:39 | PN ---
PROGRESS NOTE Patient is seen for followup for end-stage renal disease, is currently receiving hemodialysis. Patient wants to go home after dialysis today. He is comfortable. Blood pressure has been running slightly on the higher side with systolic 158-160 mmHg, heart rate 66-68 per minute. Patient is afebrile. Examination shows trace edema bilaterally. He has some periorbital edema. Abdomen is soft, nontender. His axis is working well. The patient has a right forearm AV fistula. LABS SHOW: 1. Potassium 3.9, sodium 138. ASSESSMENT: 1. End-stage renal disease, on hemodialysis on a Sunday, Sunday, Sunday schedule, currently being dialyzed. 2. Volume overload, status post two consecutive treatments and currently significantly improved. No evidence of overt cardiac ischemia. 3. Mild hypercalcemia noted. Patient is maintained on Sensipar, which we will continue. 4. Hypertension, partly volume sensitive. Continue with current antihypertensive regimen. PLAN: Patient is stable for discharge post dialysis. Follow up as outpatient for dialysis. MMODL / IJN: [id number] /
[2017-10-10] MEDS ORDERED: CINACALCET 30 MG TAB PO SCH ×2 (16:00→17:30)
[2017-10-10 16:43] LABS: Glucose,Whole Blood 198 mg/dL (75-99)
[2017-10-10] MEDS ORDERED: LISINOPRIL 10 MG TAB PO SCH (17:30)
== END 2017-10-10 17:55 | disposition home or self-care (01) | DRG 291 ==
LOC: EC 04:44 → 6SEL 06:53
PROVIDERS: ADMIT Internal Medicine; ATTEND Internal Medicine
PROC: 5A1D70Z Performance of Urinary Filtration, Intermittent, Less than 6 Hours Per Day (ICD-10-PCS; principal; 2017-10-09)
PROC: 5A1D70Z Performance of Urinary Filtration, Intermittent, Less than 6 Hours Per Day (ICD-10-PCS; 2017-10-10)
DX: I13.2 Hypertensive heart and chronic kidney disease with heart failure and with stage 5 chronic kidney disease, or end stage renal disease (principal); I50.33 Acute on chronic diastolic (congestive) heart failure; E10.22 Type 1 diabetes mellitus with diabetic chronic kidney disease; E10.51 Type 1 diabetes mellitus with diabetic peripheral angiopathy without gangrene; N18.6 End stage renal disease; E21.2 Other hyperparathyroidism; E03.9 Hypothyroidism, unspecified; M89.9 Disorder of bone, unspecified; D50.9 Iron deficiency anemia, unspecified; D63.8 Anemia in other chronic diseases classified elsewhere; H53.2 Diplopia; I25.10 Atherosclerotic heart disease of native coronary artery without angina pectoris; E78.5 Hyperlipidemia, unspecified; I25.2 Old myocardial infarction; Z79.4 Long term (current) use of insulin; Z79.02 Long term (current) use of antithrombotics/antiplatelets; Z79.899 Other long term (current) drug therapy; Z96.41 Presence of insulin pump (external) (internal); Z95.1 Presence of aortocoronary bypass graft; Z99.2 Dependence on renal dialysis; Z95.3 Presence of xenogenic heart valve; Z87.891 Personal history of nicotine dependence; Z95.5 Presence of coronary angioplasty implant and graft; Z88.0 Allergy status to penicillin
CPT/HCPCS: 36415; 71045; 80048; 80053; 81001; 83036; 83735; 83880; 84484; 85025; 85379; 85610; 85730; 86706; 87340; 90935; 93005; 96374; 96375; 99285

== ENCOUNTER 2018-03-04 11:58 | Inpatient (IN) | payer MEDICARE, BC ==
[2018-03-04] MEDS ORDERED: NITROGLYCERIN-D5W PMX 50 MG in DEXTROSE/WATER 1 250ML.BAG IV ONE (12:14)
[2018-03-04 12:38] LABS: Basophils % (A) 0 %; Eosinophils # (A) 0.1 k/uL (0-0.7); Eosinophils % (A) 2 %; HCT 34.3 % (39.0-53.0); HGB 11.6 gm/dL (13.0-17.5); Lymphocytes # (A) 0.8 k/uL (1.0-4.8); Lymphocytes % (A) 16 %; MCH 31.6 pg (25.0-35.0); MCHC 33.8 g/dL (31.0-37.0); MCV 93.5 fL (80.0-100.0); Mean Platelet Volume 6.9; Monocytes # (A) 0.3 k/uL (0-1.0); Monocytes % (A) 6 %; Neutrophils % (A) 75 %; Platelet Count 107 k/uL (150-450); RBC 3.66 m/uL (4.30-5.90); RDW 14.4 % (11.5-15.5); WBC 5.4 k/uL (3.8-10.6)
--- NOTE | 2018-03-04 12:42 | ED ---
General Adult HPI - General Chief complaint: Chest Pain Stated complaint: chest pain Time Seen by Provider: 03/04/18 12:00 Source: patient, EMS, RN notes reviewed, old records reviewed Mode of arrival: EMS Limitations: no limitations - History of Present Illness Initial comments: 63-year-old male presents for evaluation of chest pain. Patient was transferred from outside hospital with elevated troponin and chest pain. Patient's pain began while at dialysis. During dialysis treatment he developed some hypotension which is at the time when his pain began. He does have some EKG changes according to the transferring physician. Patient has history of type 1 diabetes, he is on an insulin pump, he is on hemodialysis Sunday. He has history of CAD as well as history of aortic valve replacement. At the time of my evaluation patient has no chest pain. No dyspnea. He feels quite well. He believes his symptoms were related to dialysis as well as a malfunctioning insulin pump. Patient was transferred on a nitroglycerin drip. - Related Data Home Medications Medication Instructions Recorded Confirmed Atorvastatin Calcium [Lipitor] 20 mg PO DAILY@17303/30/17 03/04/18 Carvedilol [Coreg] 12.5 mg PO BID 03/30/17 03/04/18 Cinacalcet [Sensipar] 60 mg PO DAILY@172903/30/17 03/04/18 Clopidogrel [Plavix] 75 mg PO DAILY 03/30/17 03/04/18 Furosemide [Lasix] 40 mg PO DAILY 03/30/17 03/04/18 INSULIN LISPRO (For Pump) [humaLOG See Protocol SQ-PUMP CONTINUOUS 03/30/17 (For Pump)] Lisinopril [Zestril] 10 mg PO DAILY@1730 03/30/17 03/04/18 Ranolazine [Ranexa] 1,000 mg PO DAILY 03/30/17 03/04/18 Sevelamer [Renvela] 2,400 mg PO BID PRN 03/30/17 03/04/18 Sevelamer [Renvela] 3,200 mg PO AC-TID 03/30/17 03/04/18 Isosorbide Mononitrate ER [Imdur] 60 mg PO DAILY 04/11/17 03/04/18 Dialyvite 1 tab PO DAILY 10/09/17 03/04/18 Allergies Allergy/AdvReac Type Severity Reaction Status Date / Time Penicillins Allergy Unknown Verified 03/04/18 12:18 Childhood Review of Systems ROS Statement: Those systems with pertinent positive or pertinent negative responses have been documented in the HPI. ROS Other: All systems not noted in ROS Statement are negative. 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 Live. Last Myocardial Infarction Date:: 2006? History of Any Multi-Drug Resistant Organisms: None Reported Past Surgical History: Cardiac Valve Replacement, Coronary Bypass/CABG, Heart Catheterization, Heart Catheterization With Stent Additional Past Surgical History / Comment(s): AVF R forearm, Aortic Valve replacement ([place]), PCI with stents that collapsed, CABG twice-first at [facility] and 2nd time at [place]-had infection with 2nd surgery and had extended recovery, umbilical hernia repair, colonoscopy with benign polypectomies. Past Anesthesia/Blood Transfusion Reactions: No Reported Reaction Additional Past Anesthesia/Blood Transfusion Reaction / Comment(s): Pt has received blood in past without reaction. Date of Last Stent Placement:: 2006? Past Psychological History: No Psychological Hx Reported Smoking Status: Former smoker Past Alcohol Use History: None Reported Past Drug Use History: None Reported - Past Family History Mother Family Medical History: Renal Disease Additional Family Medical History / Comment(s): Mother at the age of 89yrs. Father Family Medical History: No Reported History Additional Family Medical History / Comment(s): Pt states father is healthy and is in his mid-late 80s. General Exam Limitations: no limitations General appearance: alert, in no apparent distress Head exam: Present: atraumatic, normocephalic Eye exam: Present: normal appearance, PERRL ENT exam: Present: normal exam. Absent: normal oropharynx, mucous membranes dry Neck exam: Present: normal inspection. Absent: tenderness, meningismus Respiratory exam: Present: normal lung sounds bilaterally. Absent: respiratory distress, wheezes Cardiovascular Exam: Present: regular rate, normal rhythm GI/Abdominal exam: Present: soft. Absent: distended, tenderness, guarding Extremities exam: Present: normal inspection, normal capillary refill, pedal edema Back exam: Present: normal inspection Neurological exam: Present: alert, oriented X3, CN II-XII intact. Absent: motor sensory deficit Psychiatric exam: Present: normal affect, normal mood Skin exam: Present: warm, dry, intact. Absent: cyanosis, diaphoretic Course Vital Signs 03/04/18 03/04/18 03/04/18 12:04 13:04 15:04 Temperature 97.9 F Pulse Rate 74 81 71 Respiratory 18 18 18 Rate Blood Pressure 185/77 124/58 144/65 O2 Sat by Pulse 100 99 100 Oximetry EKG Findings - EKG Comments: EKG Findings:: EKG: Sinus rhythm with first-degree AV block, rate of 74, MT interval 238, QRS duration 98, QTC 488, no ST segment elevation or depression, Medical Decision Making - Medical Decision Making 63-year-old male presenting for evaluation of chest pain and elevated troponin from outside hospital. Patient did receive 2 troponin evaluations prior to transfer, second troponin was 0.11. This was repeated in the emergency department and is up trending 0.5-3. Patient has remained chest pain-free while in the emergency department. Vital signs are stable. He does have history of end-stage renal disease on hemodialysis. Troponin elevation may be secondary to hypotension during dialysis. He was given aspirin, started on nitroglycerin prior to transfer. He will be admitted for serial cardiac enzymes and cardiology consultation. - Lab Data Result diagrams: 03/04/18 12:25 03/04/18 12:25 Lab Results 03/04/18 03/04/18 03/04/18 Range/Units 12:25 12:25 12:25 WBC 5.4 (3.8-10.6) k/uL RBC 3.66 L (4.30-5.90) m/uL Hgb 11.6 L (13.0-17.5) gm/dL Hct 34.3 L (39.0-53.0) % MCV 93.5 (80.0-100.0) fL MCH 31.6 (25.0-35.0) pg MCHC 33.8 (31.0-37.0) g/dL RDW 14.4 (11.5-15.5) % Plt Count 107 L (150-450) k/uL Neutrophils % 75 % Lymphocytes % 16 % Monocytes % 6 % Eosinophils % 2 % Basophils % 0 % Neutrophils # 4.0 (1.3-7.7) k/uL Lymphocytes # 0.8 L (1.0-4.8) k/uL Monocytes # 0.3 (0-1.0) k/uL Eosinophils # 0.1 (0-0.7) k/uL Basophils # 0.0 (0-0.2) k/uL PT (9.0-12.0) sec INR (<1.2) APTT (22.0-30.0) sec Sodium 135 L (137-145) mmol/L Potassium 4.8 (3.5-5.1) mmol/L Chloride 93 L (98-107) mmol/L Carbon Dioxide 29 (22-30) mmol/L Anion Gap 13 mmol/L BUN 29 H (9-20) mg/dL Creatinine 4.04 H (0.66-1.25) mg/dL Est GFR (CKD-EPI)AfAm 17 (>60 ml/min/1.73 sqM) Est GFR (CKD-EPI)NonAf 15 (>60 ml/min/1.73 sqM) Glucose 269 H (74-99) mg/dL Calcium 7.9 L (8.4-10.2) mg/dL Magnesium 2.1 (1.6-2.3) mg/dL Total Bilirubin 0.9 (0.2-1.3) mg/dL AST 44 (17-59) U/L ALT 45 (21-72) U/L Alkaline Phosphatase 137 H (38-126) U/L Total Creatine Kinase 238 H (55-170) U/L CK-MB (CK-2) 11.3 H* (0.0-2.4) ng/mL CK-MB (CK-2) Rel Index 4.7 Troponin I 0.523 H* (0.000-0.034) ng/mL Total Protein 6.5 (6.3-8.2) g/dL Albumin 4.1 (3.5-5.0) g/dL 03/04/18 Range/Units 12:25 WBC (3.8-10.6) k/uL RBC (4.30-5.90) m/uL Hgb (13.0-17.5) gm/dL Hct (39.0-53.0) % MCV (80.0-100.0) fL MCH (25.0-35.0) pg MCHC (31.0-37.0) g/dL RDW (11.5-15.5) % Plt Count (150-450) k/uL Neutrophils % % Lymphocytes % % Monocytes % % Eosinophils % % Basophils % % Neutrophils # (1.3-7.7) k/uL Lymphocytes # (1.0-4.8) k/uL Monocytes # (0-1.0) k/uL Eosinophils # (0-0.7) k/uL Basophils # (0-0.2) k/uL PT 10.1 (9.0-12.0) sec INR 1.0 (<1.2) APTT 23.0 (22.0-30.0) sec Sodium (137-145) mmol/L Potassium (3.5-5.1) mmol/L Chloride (98-107) mmol/L Carbon Dioxide (22-30) mmol/L Anion Gap mmol/L BUN (9-20) mg/dL Creatinine (0.66-1.25) mg/dL Est GFR (CKD-EPI)AfAm (>60 ml/min/1.73 sqM) Est GFR (CKD-EPI)NonAf (>60 ml/min/1.73 sqM) Glucose (74-99) mg/dL Calcium (8.4-10.2) mg/dL Magnesium (1.6-2.3) mg/dL Total Bilirubin (0.2-1.3) mg/dL AST (17-59) U/L ALT (21-72) U/L Alkaline Phosphatase (38-126) U/L Total Creatine Kinase (55-170) U/L CK-MB (CK-2) (0.0-2.4) ng/mL CK-MB (CK-2) Rel Index Troponin I (0.000-0.034) ng/mL Total Protein (6.3-8.2) g/dL Albumin (3.5-5.0) g/dL Disposition Clinical Impression: NSTEMI (non-ST elevated myocardial infarction) Disposition: ADMITTED IP TO THIS HOSP Condition: Stable Is patient prescribed a controlled substance at d/c from ED?: No Referrals: Travis Escalera MD [Primary Care Provider] - 1-2 days Decision to Admit Reason: Admit from EC Decision Date: 03/04/18 Decision Time: 15:10
[2018-03-04 12:48] LABS: Prothrombin Time 10.1 sec (9.0-12.0)
[2018-03-04 12:51] LABS: Albumin 4.1 g/dL (3.5-5.0); Calcium 7.9 mg/dL (8.4-10.2); Magnesium 2.1 mg/dL (1.6-2.3); Total Bilirubin 0.9 mg/dL (0.2-1.3); Total Protein 6.5 g/dL (6.3-8.2)
[2018-03-04 13:04] LABS: Potassium 4.8 mmol/L (3.5-5.1)
[2018-03-04 13:29] LABS: Creatine Kinase MB 11.3 ng/mL (0.0-2.4)
[2018-03-04 13:30] LABS: Troponin I 0.523 ng/mL (0.000-0.034)
[2018-03-04] MEDS ORDERED: MORPHINE SULFATE 4 MG/ML SYRINGE IV PRN (15:44)
[2018-03-04] MEDS ORDERED: NALOXONE 0.4 MG/ML 1 ML VIAL IV PRN (15:44)
[2018-03-04] MEDS ORDERED: SEVELAMER 800 MG TAB PO PRN (15:45)
[2018-03-04 19:10] LABS: Troponin I 3.36 ng/mL (0.000-0.034)
[2018-03-04] MEDS ORDERED: HEPARIN SODIUM,PORCINE 5,000 UNIT/ML 1 ML VIAL IV PRN (21:09)
--- NOTE | 2018-03-04 22:04 | HP ---
HISTORY AND PHYSICAL DATE OF ADMISSION: 03/04/18 DATE OF SERVICE: 03/04/18 PRESENTING COMPLAINT: Chest pain. HISTORY OF PRESENTING COMPLAINT: This is a pleasant 63-year-old patient of Dr. Escalera, rather extensive medical history. 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 Live. The patient has had a coronary bypass and stent in the past. Patient does follow with Dr. Cordero. Last stress test about 3 years ago. Patient is not sure about the results. This morning when the patient was changing his pump, he found the needle to be crooked and sugars running a bit. Subsequently patient developed center chest pressure that lasted for a good 2 hours. The pump was replaced and then patient started feeling a bit better. The pain did not radiate. There was no dizziness. No lightheadedness. No shortness of breath. There was perspiration. The patient is transferred from [facility] to [facility]. Initial troponin was 0.5 and did climb up to 3.3. REVIEW OF SYSTEMS: CONSTITUTIONAL: Tired. HEENT: None. CARDIOVASCULAR: As above. GASTROINTESTINAL: None. GENITOURINARY: None. MUSCULOSKELETAL: None. DERMATOLOGICAL, HEMATOLOGIC, LYMPHATIC: None. PSYCHIATRY: None. NEUROLOGICAL: Numbness and tingling in the feet. PAST MEDICAL HISTORY: Coronary artery disease, congestive heart failure, diabetes, insulin pump, hypertension, end-stage kidney disease on hemodialysis Sunday, Sunday and Sunday. Iron deficiency anemia. Thyroid currently being worked up. 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 Live. PAST SURGICAL HISTORY: Coronary bypass, cardiac cath with stent, AV fistula in the right forearm, aortic valve replacement type, CABG twice 1st at [facility] and 2nd time at [place]. The patient had infection with 2nd surgeon and had extended recovery, umbilical hernia repair, colonoscopy with benign polypectomy. SOCIAL HISTORY: . Smoked for about 16 years, stopped in 85. Alcohol none. FAMILY HISTORY: Of kidney disease. HOME MEDICATIONS: 1. Renvela 3200 mg p.o. a.c. t.i.d. and 2400 mg b.i.d. p.r.n. and 1000 mg p.o. daily. 2. Zestril 10 mg p.o. daily. 3. Imdur ER 60 mg daily. 4. Humalog pump. 5. Dialyvite 1 tablet p.o. daily. 6. Plavix 75 mg p.o. daily. 7. Sensipar 60 mg daily. 8. Coreg 12.5 p.o. b.i.d. 9. Lipitor 20 mg p.o. daily. ALLERGIES: PENICILLIN. PHYSICAL EXAMINATION: Vital signs on presentation: Temperature 97.9, pulse 74, respiratory 18, blood pressure 125/58, pulse ox 99% on 2 L. GENERAL APPEARANCE: Average built, BMI 32. Lying in bed, awake, tired-appearing. EYES: Pupils equal. Conjunctivae normal. HEENT: External appearance of nose and ears normal. Oral cavity normal. NECK: JVD not raised. Mass not palpable. RESPIRATORY: Effort normal, lungs fair entry. CARDIOVASCULAR: 1st and 2nd sounds, no edema. ABDOMEN: Soft, nontender. Liver and spleen not palpable. LYMPHATIC: No lymph node palpable. PSYCHIATRY: Alert and oriented x3. Mood and affect is normal. NEUROLOGICAL: Pupils equal. Cranial nerves grossly intact. Some decreased sensation peripherally. INVESTIGATIONS: White count 5.4, hemoglobin 11.6, potassium 4.8, BUN 29, creatinine 4.04. Troponin 0.5, 3.3. EKG shows poor R-wave progression in anterior leads. ASSESSMENT: 1. Acute non ST elevation myocardial infarction probably affecting the anterior wall in a patient with known coronary artery disease. 2. Coronary artery disease with prior history of coronary bypass and stent. 3. Diabetes mellitus type 2, chronically on insulin pump. 4. Essential hypertension. 5. End-stage kidney disease on hemodialysis Sunday, Sunday and Sunday. 6. Iron deficiency anemia. PLAN: Cardiology was consulted. I spoke to the nurse. She said Cardiology was made aware. The patient will be kept on IV heparin. Also continue with Plavix. The patient also was put on nitroglycerin drip in the ER. Cardiology was consulted. Prognosis guarded. MMODL / IJN: [id number] /
[2018-03-04] MEDS: LISINOPRIL 10 MG TAB PO SCH (22:25)
[2018-03-04] MEDS: SEVELAMER 800 MG TAB PO SCH (22:25)
[2018-03-04] MEDS: CARVEDILOL 12.5 MG TAB PO SCH (22:25)
[2018-03-04] MEDS: CINACALCET 30 MG TAB PO SCH (22:25)
[2018-03-04] MEDS ORDERED: HEPARIN SODIUM,PORCINE 5,000 UNIT/ML 1 ML VIAL IV ONE (22:30)
[2018-03-04] MEDS ORDERED: HEPARIN SOD,PORK IN 0.45% NACL 25,000 UNIT in 0.45% NACL 1 500ML.BAG IV SCH (22:30)
[2018-03-05 01:20] LABS: Creatine Kinase MB 16.4 ng/mL (0.0-2.4); Troponin I 6.13 ng/mL (0.000-0.034)
[2018-03-05 06:06] LABS: Glucose,Whole Blood 74 mg/dL (75-99)
[2018-03-05] MEDS: SEVELAMER 800 MG TAB PO SCH ×3 (06:15→17:03)
[2018-03-05 06:47] LABS: Basophils % (A) 1 %; Eosinophils # (A) 0.2 k/uL (0-0.7); Eosinophils % (A) 5 %; HCT 33.9 % (39.0-53.0); HGB 11.1 gm/dL (13.0-17.5); Lymphocytes # (A) 1.3 k/uL (1.0-4.8); Lymphocytes % (A) 28 %; MCH 30.2 pg (25.0-35.0); MCHC 32.7 g/dL (31.0-37.0); MCV 92.3 fL (80.0-100.0); Mean Platelet Volume 7.1; Monocytes # (A) 0.3 k/uL (0-1.0); Monocytes % (A) 6 %; Neutrophils # (A) 2.6 k/uL (1.3-7.7); Neutrophils % (A) 57 %; Platelet Count 121 k/uL (150-450); RBC 3.67 m/uL (4.30-5.90); RDW 14.2 % (11.5-15.5); WBC 4.5 k/uL (3.8-10.6)
--- NOTE | 2018-03-05 08:51 | P.CRDCN ---
History of Present Illness Consult date: 03/05/18 Requesting physician: Wilber Griffin Consult reason: chest pain Chief complaint: Chest pain History of present illness: This is a 63-year-old gentleman who follows with Dr. Cordero in the office. He has a known history of end-stage renal disease on hemodialysis, diabetes, hypertension, hyperlipidemia, patient had coronary artery bypass grafting surgery 2, second bypass surgery and aortic valve replacement was also performed at that time. Patient states he was at dialysis yesterday, became hypotensive and shortly thereafter developed chest pressure and heaviness. states he had just recently changed his insulin pump and the needle was kinked, his blood sugars were elevated and he felt the chest pain was secondary to that. Because of the chest pain he presented to the hospital for further evaluation. Initial EKG on arrival here showed a normal sinus rhythm with lateral T-wave inversion. Subsequent EKG shows normal sinus rhythm with lateral T-wave inversion. Blood pressure on arrival here 185/77, heart rate in the 70s, not 100% on 2 L of oxygen. Blood pressure this morning 104/60 with a heart rate in the 80s, 99% on room air. Laboratory data was reviewed, white blood cell count 4.5, hemoglobin 11.1, platelet count 121. Sodium 135, potassium 4.8, BUN 29, creatinine 4.0. Troponins 0.52, 3.3, 6.1. At the time of my examination this morning, patient is currently chest pain-free. Past Medical History Past Medical History: Coronary Artery Disease (CAD), Chest Pain / Angina, Heart Failure, Diabetes Mellitus, Hypertension, Myocardial Infarction (VT), Renal Disease, Thyroid Disorder, Vascular Disorder Additional Past Medical History / Comment(s): IDDM type I with insulin pump, ESRD with hemodialysis M,W,F-pt missed Sun dialysis this week, iron deficiency anemia, thyroid currently being worked up, L eye occular palsey/double vision- resolved palsey and now has "fuzzy" vision with L eye-sees Dr. Live. Last Myocardial Infarction Date:: 2006? History of Any Multi-Drug Resistant Organisms: None Reported Past Surgical History: Cardiac Valve Replacement, Coronary Bypass/CABG, Heart Catheterization, Heart Catheterization With Stent Additional Past Surgical History / Comment(s): AVF R forearm, Aortic Valve replacement (Swine), PCI with stents that collapsed, CABG twice-first at [facility] and 2nd time at [place]-had infection with 2nd surgery and had extended recovery, umbilical hernia repair, colonoscopy with benign polypectomies. Past Anesthesia/Blood Transfusion Reactions: No Reported Reaction Additional Past Anesthesia/Blood Transfusion Reaction / Comment(s): Pt has received blood in past without reaction. Date of Last Stent Placement:: 2006? Past Psychological History: No Psychological Hx Reported Additional Psychological History / Comment(s): Pt resides with his spouse. He is retired due to medical problems. He drives. Pt goes to hemodialysis 3 times a week. He has a glucometer and insulin pump. Smoking Status: Former smoker Past Alcohol Use History: None Reported Additional Past Alcohol Use History / Comment(s): Pt started smoking in 1968 and quit in 1984. Past Drug Use History: None Reported - Past Family History Mother Family Medical History: Renal Disease Additional Family Medical History / Comment(s): Mother at the age of 89yrs. Father Family Medical History: No Reported History Additional Family Medical History / Comment(s): Pt states father is healthy and is in his mid-late 80s. Medications and Allergies Home Medications Medication Instructions Recorded Confirmed Type Atorvastatin Calcium [Lipitor] 20 mg PO DAILY@172903/30/17 03/04/18 History Carvedilol [Coreg] 12.5 mg PO BID 03/30/17 03/04/18 History Cinacalcet [Sensipar] 60 mg PO DAILY@172903/30/17 03/04/18 History Clopidogrel [Plavix] 75 mg PO DAILY 03/30/17 03/04/18 History Furosemide [Lasix] 40 mg PO DAILY 03/30/17 03/04/18 History INSULIN LISPRO (For Pump) [humaLOG See Protocol SQ-PUMP CONTINUOUS 03/30/17 History (For Pump)] Lisinopril [Zestril] 10 mg PO DAILY@172903/30/17 03/04/18 History Ranolazine [Ranexa] 1,000 mg PO DAILY 03/30/17 03/04/18 History Sevelamer [Renvela] 2,400 mg PO BID PRN 03/30/17 03/04/18 History Sevelamer [Renvela] 3,200 mg PO AC-TID 03/30/17 03/04/18 History Isosorbide Mononitrate ER [Imdur] 60 mg PO DAILY 04/11/17 03/04/18 History Dialyvite 1 tab PO DAILY 10/09/17 03/04/18 History Allergies Allergy/AdvReac Type Severity Reaction Status Date / Time Penicillins Allergy Unknown Verified 03/04/18 12:18 Childhood Physical Exam Vitals: Vital Signs Temp Pulse Pulse Resp BP BP Pulse Ox 03/05/18 04:00 98 F 80 16 104/57 99 03/05/18 00:00 97.8 F 74 16 125/64 99 03/04/18 20:27 69 17 133/60 98 03/04/18 19:15 98.2 F 70 18 118/58 98 03/04/18 18:10 98.1 F 65 16 143/64 100 03/04/18 17:59 69 18 106/55 98 03/04/18 15:04 71 18 144/65 100 03/04/18 13:04 81 18 124/58 99 03/04/18 12:04 97.9 F 74 18 185/77 100 Intake and Output 03/04/18 03/05/18 03/05/18 22:59 06:59 14:59 Intake Total 480 0 181.667 Balance 480 0 181.667 Intake: Intake, IV Titration 181.667 Amount Heparin Sod,Pork in 0.45% 181.667 NaCl 25,000 unit In 0.45 % NaCl 1 500ml.bag @ 10.2 UNITS/KG/HR 20.07 mls/hr IV .Q24H [facility] Rx#: [id number] Oral 480 0 Other: # Voids 2 1 Weight 98.43 kg 99.5 kg PHYSICAL EXAMINATION: GENERAL: 63-year-old gentleman in no acute distress at the time of my examination HEENT: Head is atraumatic, normocephalic. Pupils equal, round. Sclera anicteric. Conjunctiva are clear. Mucous membranes of the mouth are moist. Neck is supple. There is no elevated jugular venous pressure. No carotid bruit is heard. HEART EXAMINATION: Heart S1 and S2 systolic murmur is heard. CHEST EXAMINATION: Lungs are clear to auscultation and precussion. No chest wall tenderness is noted on palpation or with deep breathing. ABDOMEN: Soft, nontender. Bowel sounds are heard. No organomegaly noted. EXTREMITIES: 2+ peripheral pulses with no evidence of peripheral edema and no calf tenderness noted. NEUROLOGIC patient is awake, alert and oriented X3. . Results 03/05/18 06:10 03/04/18 12:25 Cardiac Enzymes 03/04/18 03/04/18 03/04/18 Range/Units 12:25 12:25 18:21 AST 44 (17-59) U/L CK-MB (CK-2) 11.3 H* 16.0 H* (0.0-2.4) ng/mL Troponin I 0.523 H* 3.360 H* (0.000-0.034) ng/mL 03/05/18 Range/Units 00:18 AST (17-59) U/L CK-MB (CK-2) 16.4 H* (0.0-2.4) ng/mL Troponin I 6.130 H* (0.000-0.034) ng/mL Coagulation 03/04/18 03/05/18 Range/Units 12:25 06:10 PT 10.1 (9.0-12.0) sec APTT 23.0 26.3 (22.0-30.0) sec CBC 03/04/18 03/05/18 Range/Units 12:25 06:10 WBC 5.4 4.5 (3.8-10.6) k/uL RBC 3.66 L 3.67 L (4.30-5.90) m/uL Hgb 11.6 L 11.1 L (13.0-17.5) gm/dL Hct 34.3 L 33.9 L (39.0-53.0) % Plt Count 107 L 121 L (150-450) k/uL Comprehensive Metabolic Panel 03/04/18 Range/Units 12:25 Sodium 135 L (137-145) mmol/L Potassium 4.8 (3.5-5.1) mmol/L Chloride 93 L (98-107) mmol/L Carbon Dioxide 29 (22-30) mmol/L BUN 29 H (9-20) mg/dL Creatinine 4.04 H (0.66-1.25) mg/dL Glucose 269 H (74-99) mg/dL Calcium 7.9 L (8.4-10.2) mg/dL AST 44 (17-59) U/L ALT 45 (21-72) U/L Alkaline Phosphatase 137 H (38-126) U/L Total Protein 6.5 (6.3-8.2) g/dL Albumin 4.1 (3.5-5.0) g/dL Current Medications Generic Name Dose Route Start Last Admin Trade Name Freq PRN Reason Stop Dose Admin Atorvastatin Calcium 20 mg 03/05/18 17:30 Lipitor PO DAILY@1730 [facility] Carvedilol 12.5 mg 03/04/18 22:30 03/04/18 22:25 Coreg PO 12.5 mg BID [facility] Administration Cinacalcet 60 mg 03/04/18 22:30 03/04/18 22:25 Sensipar PO 60 mg DAILY@1730 [facility] Administration Clopidogrel Bisulfate 75 mg 03/05/18 09:00 Plavix PO DAILY [facility] Furosemide 40 mg 03/05/18 09:00 Lasix PO DAILY [facility] Heparin Sodium (Porcine) 0 unit 03/04/18 21:09 03/05/18 08:28 Heparin IV 4,000 unit PER PROTOCOL PRN Administration Low PTT Protocol Nitroglycerin/Dextrose 50 mg/ 250 mls @ 1.5 mls/hr 03/04/18 12:14 03/04/18 12 :34 IV Solution IV 03/05/18 12:13 5 mcg/min .Q24H ONE 1.5 mls/hr Administration Protocol 5 MCG/MIN Heparin Sodium/Sodium Chloride 500 mls @ 20.07 mls/hr 03/04/18 22:30 08:26 25,000 unit/ Sodium Chloride IV 13.2 units/kg/hr .Q24H [facility] 26 mls/hr Titration Protocol 10.2 UNITS/KG/HR Lisinopril 10 mg 03/04/18 22:30 03/04/18 22:25 Zestril PO 10 mg DAILY@1730 [facility] Administration Morphine Sulfate 4 mg 03/04/18 15:44 Morphine Sulfate (Inj) IV Q4HR PRN Severe Pain Naloxone HCl 0.2 mg 03/04/18 15:44 Narcan IV Q2M PRN Opioid Reversal Non-Formulary Medication 1 units 03/04/18 21:00 Insulin Lispro (For Pump) [Humalog (For Pump)] SQ-PUMP CONTINUOUS [facility] Ranolazine 500 mg 03/05/18 09:00 Ranexa PO BID [facility] Sevelamer Carbonate 2,400 mg 03/04/18 15:45 Renvela PO BID PRN snacks Sevelamer Carbonate 3,200 mg 03/04/18 22:30 03/05/18 06:15 Renvela PO Not Given AC-TID [facility] Intake and Output 03/04/18 03/05/18 03/05/18 22:59 06:59 14:59 Intake Total 480 0 181.667 Balance 480 0 181.667 Intake: Intake, IV Titration 181.667 Amount Heparin Sod,Pork in 0.45% 181.667 NaCl 25,000 unit In 0.45 % NaCl 1 500ml.bag @ 10.2 UNITS/KG/HR 20.07 mls/hr IV .Q24H [facility] Rx#: [id number] Oral 480 0 Other: # Voids 2 1 Weight 98.43 kg 99.5 kg 03/05/18 06:10 03/04/18 12:25 EKG Interpretations (text) EKG shows normal sinus rhythm with lateral T-wave inversion. Assessment and Plan Plan: Assessment and plan #1 chest discomfort with abnormality in troponins suggesting Q wave VT. #2 known history of coronary artery disease with prior bypass, patient also had a redo bypass and aortic valve replacement with bioprosthetic valve. 3 end-stage renal disease on hemodialysis #4 hypertension #5 diabetes #6 hyperlipidemia #7 prior history of smoking Plan We will continue the IV heparin, repeat echocardiogram with Doppler study. We will also give the patient an aspirin. Obtain office records. Patient has been advised to undergo cardiac catheterization, the risks and benefits were explained to the patient in detail and he is willing to proceed. Recommendations will be based on these findings and patient's clinical course. DNP note has been reviewed, I agree with a documented findings and plan of care. Patient was seen and examined.
[2018-03-05] MEDS ORDERED: ATORVASTATIN 80 MG TAB PO STA (08:55)
[2018-03-05] MEDS ORDERED: ALPRAZolam 0.25 MG TAB PO PRN (08:55)
[2018-03-05] MEDS ORDERED: ASPIRIN 325 MG TAB PO STA (08:55)
[2018-03-05] MEDS ORDERED: NITROGLYCERIN SL TABS 0.4 MG TAB SUBLINGUAL PRN ×2 (08:55→15:42)
[2018-03-05] MEDS ORDERED: ALPRAZolam 0.5 MG TAB PO PRN (08:55)
[2018-03-05] MEDS ORDERED: CLOPIDOGREL 75 MG TAB PO SCH (09:00)
[2018-03-05] MEDS ORDERED: ASPIRIN 325 MG TAB PO SCH (09:00)
[2018-03-05] MEDS ORDERED: DEXTROSE 50%-WATER 50 ML SYRINGE IVP ONE (09:02)
--- NOTE | 2018-03-05 09:03 | P.PN ---
Progress Note - Text this is an addendum to the dictated cardiology consultation. The patient has a known history of CAD status post redo CABG and AVR, end-stage renal disease, diabetes mellitus who presented with symptoms of chest discomfort and dyspnea. He attributed that to his insulin pump. He's feeling well at this time without any symptoms of chest discomfort or dyspnea. He is in sinus mechanism with no evidence of tachycardia. His physical examination shows no fluid overload and his lungs are clear. His cardiac enzymes are consistent with non-STEMI. I have recommended to proceed with coronary angiography, the options, risks and complications were discussed with the patient was in full agreement and understanding. Thank you for this consult we will follow with you.
--- NOTE | 2018-03-05 10:03 | ECHOF ---
Referral Reason:chest pain MEASUREMENTS -------- HEIGHT: 175.3 cm WEIGHT: 99.3 kg BP: 104/57 RVIDd: 2.9 cm (< 3.3) IVSd: 2.1 cm (0.6 - 1.1) LVIDd: 3.4 cm (3.9 - 5.3) LVPWd: 1.5 cm (0.6 - 1.1) IVSs: 2.5 cm LVIDs: 2.7 cm LVPWs: 1.9 cm MV EXCURSION: 15.618 mm (> 18.000) MV EF SLOPE: 66 mm/s (70 - 150) EPSS: 0.4 cm MV E Alexandre: 1.41 m/s MV DecT: 270 ms MV A Alexandre: 0.68 m/s MV E/A Ratio: 2.06 AV maxP.88 mmHg AV meanP.30 mmHg AR PHT: 353 ms RAP: 5.00 mmHg RVSP: 41.89 mmHg FINDINGS -------- Sinus rhythm. This was a technically good study. The left ventricular size is normal. There is severe concentric left ventricular hypertrophy. Ove rall left ventricular systolic function is normal with, an EF between 55 - 60 %. The right ventricle is normal in size and function. The left atrium is normal in size. The right atrium is normal in size. Aortic valve is trileaflet and is mildly thickened. Peak/mean gradient across the Aortic Valve is 2 5.88mmHg / 13.30mmHg. Normal porcine bioprosthetic aortic valve. There is trivial regurgitation o f the bioprosthetic aortic valve. The mitral valve leaflets are mildly thickened. Mild mitral regurgitation is present. Mild tricuspid regurgitation present. The right ventricular systolic pressure, as measured by Doppl er, is 41.89mmHg. Pulmonic valve appears structurally normal. The aortic root size is normal. The pericardium is normal. CONCLUSIONS -------- 1. Sinus rhythm. 2. This was a technically good study. 3. The left ventricular size is normal. 4. There is severe concentric left ventricular hypertrophy. 5. Overall left ventricular systolic function is normal with, an EF between 55 - 60 %. 6. The right ventricle is normal in size and function. 7. The left atrium is normal in size. 8. The right atrium is normal in size. 9. Aortic valve is trileaflet and is mildly thickened. 10. Peak/mean gradient across the Aortic Valve is 25.88mmHg / 13.30mmHg. 11. Normal porcine bioprosthetic aortic valve. 12. There is trivial regurgitation of the bioprosthetic aortic valve. 13. The mitral valve leaflets are mildly thickened. 14. Mild mitral regurgitation is present. 15. Mild tricuspid regurgitation present. 16. The right ventricular systolic pressure, as measured by Doppler, is 41.89mmHg. 17. Pulmonic valve appears structurally normal. 18. The aortic root size is normal. 19. The pericardium is normal. RETAIL SALESMAN: Rocio Hooker RDCS
[2018-03-05] MEDS: FUROSEMIDE 40 MG TAB PO SCH (10:53)
[2018-03-05] MEDS: CARVEDILOL 12.5 MG TAB PO SCH ×2 (10:53→21:32)
[2018-03-05] MEDS: RANOLAZINE 500 MG TAB.ER.12H PO SCH ×2 (10:54→21:32)
[2018-03-05] MEDS: DEXTROSE 5%-0.45% NACL 1,000 ML IV SCH ×2 (10:54→20:40)
[2018-03-05 11:59] LABS: Glucose,Whole Blood 130 mg/dL (75-99)
--- NOTE | 2018-03-05 12:12 | P.NPCON ---
History of Present Illness - Reason for Consult end stage renal disease - History of Present Illness Reason for consultation: End-stage renal disease History of present illness: Patient is a 63-year-old male seen in consultation for end-stage renal disease. He is maintained on hemodialysis on a Sunday schedule via right upper extremity AV fistula. Patient states his insulin pump malfunctioned and he became quite hyperglycemic. Patient states he developed left-sided chest pain and felt quite weak and dizzy and was subsequently sent to the hospital directly from the dialysis center. He did receive majority of his dialysis on Sunday. He is currently resting in bed. He denies any active chest pain or shortness of breath. He does have history of coronary artery disease status post CABG in the past along with aortic follow for placement. He is scheduled to undergo cardiac catheterization today. No vomiting or diarrhea. Oral intake is good. Hemodynamically stable. No fever or chills. Denies abdominal pain. No edema. Vital signs are stable. General: The patient appeared well nourished and normally developed. HEENT: Head exam is unremarkable. Neck is without jugular venous distension. LUNGS: Lungs are clear to auscultation and percussion. Breath sounds decreased. HEART: Rate and Rhythm are regular. First and second heart sounds normal. No murmurs, rubs or gallops. ABDOMEN: Abdominal exam reveals normal bowel sounds. Non-tender and non- distended. No evidence of peritonitis. EXTREMITITES: No clubbing, cyanosis, or edema. Past Medical History Past Medical History: Coronary Artery Disease (CAD), Chest Pain / Angina, Heart Failure, Diabetes Mellitus, Hypertension, Myocardial Infarction (ND), Renal Disease, Thyroid Disorder, Vascular Disorder Additional Past Medical History / Comment(s): IDDM type I with insulin pump, ESRD with hemodialysis M,W,F-pt missed Sun dialysis this week, iron deficiency anemia, thyroid currently being worked up, L eye occular palsey/double vision- resolved palsey and now has "fuzzy" vision with L eye-sees Dr. Live. Last Myocardial Infarction Date:: 2006? History of Any Multi-Drug Resistant Organisms: None Reported Past Surgical History: Cardiac Valve Replacement, Coronary Bypass/CABG, Heart Catheterization, Heart Catheterization With Stent Additional Past Surgical History / Comment(s): AVF R forearm, Aortic Valve replacement (Swine), PCI with stents that collapsed, CABG twice-first at [facility] and 2nd time at [place]-had infection with 2nd surgery and had extended recovery, umbilical hernia repair, colonoscopy with benign polypectomies. Past Anesthesia/Blood Transfusion Reactions: No Reported Reaction Additional Past Anesthesia/Blood Transfusion Reaction / Comment(s): Pt has received blood in past without reaction. Date of Last Stent Placement:: 2006? Past Psychological History: No Psychological Hx Reported Additional Psychological History / Comment(s): Pt resides with his spouse. He is retired due to medical problems. He drives. Pt goes to hemodialysis 3 times a week. He has a glucometer and insulin pump. Smoking Status: Former smoker Past Alcohol Use History: None Reported Additional Past Alcohol Use History / Comment(s): Pt started smoking in 1968 and quit in 1984. Past Drug Use History: None Reported - Past Family History Mother Family Medical History: Renal Disease Additional Family Medical History / Comment(s): Mother at the age of 89yrs. Father Family Medical History: No Reported History Additional Family Medical History / Comment(s): Pt states father is healthy and is in his mid-late 80s. Medications and Allergies Home Medications Medication Instructions Recorded Confirmed Type Atorvastatin Calcium [Lipitor] 20 mg PO DAILY@172903/30/17 03/04/18 History Carvedilol [Coreg] 12.5 mg PO BID 03/30/17 03/04/18 History Cinacalcet [Sensipar] 60 mg PO DAILY@172903/30/17 03/04/18 History Clopidogrel [Plavix] 75 mg PO DAILY 03/30/17 03/04/18 History Furosemide [Lasix] 40 mg PO DAILY 03/30/17 03/04/18 History INSULIN LISPRO (For Pump) [humaLOG See Protocol SQ-PUMP CONTINUOUS 03/30/17 History (For Pump)] Lisinopril [Zestril] 10 mg PO DAILY@172903/30/17 03/04/18 History Ranolazine [Ranexa] 1,000 mg PO DAILY 03/30/17 03/04/18 History Sevelamer [Renvela] 2,400 mg PO BID PRN 03/30/17 03/04/18 History Sevelamer [Renvela] 3,200 mg PO AC-TID 03/30/17 03/04/18 History Isosorbide Mononitrate ER [Imdur] 60 mg PO DAILY 04/11/17 03/04/18 History Dialyvite 1 tab PO DAILY 10/09/17 03/04/18 History Allergies Allergy/AdvReac Type Severity Reaction Status Date / Time Penicillins Allergy Unknown Verified 03/04/18 12:18 Childhood Physical Exam Vitals: Vital Signs Temp Pulse Pulse Resp BP BP Pulse Ox 03/05/18 04:00 98 F 80 16 104/57 99 03/05/18 00:00 97.8 F 74 16 125/64 99 03/04/18 20:27 69 17 133/60 98 03/04/18 19:15 98.2 F 70 18 118/58 98 03/04/18 18:10 98.1 F 65 16 143/64 100 03/04/18 17:59 69 18 106/55 98 03/04/18 15:04 71 18 144/65 100 03/04/18 13:04 81 18 124/58 99 Intake and Output 03/04/18 03/05/18 03/05/18 22:59 06:59 14:59 Intake Total 480 0 181.667 Balance 480 0 181.667 Intake: Intake, IV Titration 181.667 Amount Heparin Sod,Pork in 0.45% 181.667 NaCl 25,000 unit In 0.45 % NaCl 1 500ml.bag @ 10.2 UNITS/KG/HR 20.07 mls/hr IV .Q24H [facility] Rx#: [id number] Oral 480 0 Other: # Voids 2 1 Weight 98.43 kg 99.5 kg Results - Lab Results Most recent lab results Calcium 7.9 mg/dL (8.4-10.2) L 03/04/18 12:25 Magnesium 2.1 mg/dL (1.6-2.3) 03/04/18 12:25 03/05/18 06:10 03/04/18 12:25 Assessment and Plan Plan: Assessment: 1. End-stage renal disease maintained on hemodialysis on a Sunday schedule via right upper extremity AV fistula. 2. Chest pain. Rule out acute coronary syndrome. Scheduled for cardiac catheterization today. 3. Anemia of chronic kidney disease. Hemoglobin at goal. 4. Hypertension with chronic kidney disease. Controlled. 5. Insulin-dependent diabetes mellitus. 6. Chronic kidney disease mineral bone disease maintained on Renvela. 7. Status post parathyroidectomy maintained on calcium and vitamin D supplementation as outpatient. Plan: Hemodialysis tomorrow with goal 3 L ultrafiltration. Check phosphorus level. Thank you for the consultation. I will continue to follow the patient with you during his hospital stay.
[2018-03-05] MEDS ORDERED: fentaNYL (PF) 50 MCG/ML 2 ML AMP ONE (14:05)
[2018-03-05] MEDS ORDERED: diphenhydrAMINE 50 MG/ML 1 ML VIAL ONE (14:05)
[2018-03-05] MEDS ORDERED: LIDOCAINE 1% INJ 10MG/ML (20 ML MDV) ONE (14:05)
[2018-03-05] MEDS ORDERED: fentaNYL (PF) 50 MCG/ML 2 ML AMP IVP ONE (14:23)
[2018-03-05] MEDS ORDERED: diphenhydrAMINE 50 MG/ML 1 ML VIAL IVP ONE (14:23)
[2018-03-05] MEDS ORDERED: IV FLUID CONTINUATION 1,000 ML IV ONE (14:26)
[2018-03-05] MEDS ORDERED: LIDOCAINE 1% INJ 10MG/ML (20 ML MDV) SQ ONE (14:31)
[2018-03-05] MEDS ORDERED: PRASUGREL 10 MG TAB ONE (14:44)
[2018-03-05] MEDS ORDERED: PRASUGREL 10 MG TAB PO ONE (14:49)
[2018-03-05] MEDS ORDERED: BIVALIRUDIN BOLUS 250 MG/50 ML IV ONE (14:50)
[2018-03-05] MEDS ORDERED: BIVALIRUDIN 250 MG in SODIUM CHLORIDE 0.9% 50 ML IV ONE ×2 (14:51→15:19)
[2018-03-05] MEDS ORDERED: IOPAMIDOL-370 125ML BTL INJ ONE (14:57)
[2018-03-05] MEDS ORDERED: IOPAMIDOL-370 100ML BTL INJ ONE (15:33)
[2018-03-05] MEDS ORDERED: MAG HYDROX/AL HYDROX/SIMETH 30 ML CUP PO PRN (15:42)
[2018-03-05] MEDS ORDERED: RX INFO: IV CONTRAST WAS GIVEN 1 EACH MISC MISCELLANE PRN (15:42)
[2018-03-05] MEDS ORDERED: ZOLPIDEM 5 MG TAB PO PRN (15:42)
[2018-03-05] MEDS ORDERED: ATROPINE SULFATE 0.1 MG/ML 10ML SYRINGE IV PRN (15:42)
[2018-03-05] MEDS ORDERED: SODIUM CHLORIDE 0.9% 1,000 ML IV SCH (15:45)
--- NOTE | 2018-03-05 16:05 | CC ---
CARDIAC CATHETERIZATION REPORT Mr. Rosales is a 63-year-old male with a history of coronary artery disease status post coronary artery bypass grafting and aortic valve replacement, history of hypertension, hyperlipidemia, diabetes mellitus, end-stage renal disease, who presented with symptoms of chest discomfort and troponin elevation consistent with non ST-segment elevation myocardial infarction. In view of that, recommendation made regarding cardiac catheterization. The procedure as well as risks and complications were discussed with the patient who is in full understanding and agreement. PROCEDURE: Patient was brought to the ammunition assembly i laborer in a fasting state after receiving fentanyl and Benadryl and achieving moderate conscious sedated state. Using Xylocaine anesthesia and Seldinger technique, a 6-Azerbaijani sheath was introduced in the right femoral artery. Selective right and left coronary angiography was performed using 6-Azerbaijani 4 bend right and left Antonio catheter. Multiple views of the coronary artery including hemiaxial views were obtained. Following that, the 6-Azerbaijani AUDREY catheter was introduced and images of the MCDERMOTT were obtained. Following that, catheter was removed and images were reviewed. FINDINGS: 1. The left main: This is a short size vessel bifurcating left circumflex, left anterior descending artery. Left main coronary artery has no evidence of obstructive disease. 2. Left anterior descending artery: This vessel is totally occluded in the mid segment after the takeoff of the 1st septal information systems security developer. The vessel has diffuse intimal disease in that segment. 3. Left circumflex: This vessel has a 99% hazy area proximally. It gives rise to an obtuse marginal branch that has slow flow with totally occluded distally. The AV groove left circumflex has intimal disease without any evidence of high-grade stenosis. 4. Right coronary artery: This is a dominant vessel bifurcating distally into PDA and posterolateral segment and branches. The right coronary artery has a 30% to 40% plaque proximally. The mid segment has mild intimal disease without any evidence of high-grade stenosis. 5. MCDERMOTT: The MCDERMOTT to the LAD and diagonal branches are patent. The distal anastomotic site is patent. The flow into the LAD and the diagonal branch is brisk. 6. 7. Left ventriculogram is not performed. IMPRESSION: 1. Totally occluded left anterior descending coronary artery. 2. Patent MCDERMOTT to the LAD into the diagonal branch. 3. Totally occluded distal obtuse marginal branch that appears to be chronic with critical stenosis in the proximal left circumflex. 4. Mild to moderate disease in the RCA. RECOMMENDATION: In view of findings and anatomy, I have recommended proceeding with angioplasty and stenting of the proximal left circumflex. The procedures, risks and complications were discussed with the patient who is in full understanding and agreement. [place] / CHERRYN: [id number] /
--- NOTE | 2018-03-05 16:11 | PTCA ---
PERCUTANEOUSTRANS CORORONARY ANGIOGRAPHY Mr. Rosales is a 63-year-old male with a history of coronary artery disease who presented with non ST-segment elevation myocardial infarction, underwent cardiac catheterization, was found to have critical stenosis in the proximal left circumflex and totally occluded distal obtuse marginal branch. Recommendation was made regarding angioplasty and stenting. The procedures, as well as risks and complications were discussed with the patient who is in full understanding and agreement. PROCEDURE: A 6-[place] FR4 guiding catheter in the system. After cannulating the left main, a 0.014 balanced medium weight J-wire was advanced across the lesion, positioned distally. Then a 2.5 x 12 mm Trek balloon was advanced and one inflation at 10 atmospheres was done. Following that, the balloon was removed and an attempt to advance a 2.75 x 50 mm Xience Alpine stent were unsuccessful. The stent was removed and with the help of the GuideLiner, the stent was advanced, deployed and was dilated to 16 atmospheres. Following that, the balloon was removed and a 0.014 balance medium weight J-wire with Corsair catheter was advanced and attempt to cross the chronic distal occlusion of the obtuse marginal branch were unsuccessful. That wire was removed and a Fielder XT 300 cm was advanced and could not cross the total occlusion. At that point, the guiding catheter, the balloon and the guidewire were removed. Sheath was removed. Hemostasis was obtained with deployment of an Angio-Seal. There was no immediate complications. Patient was returned to his room in stable condition. Of note, the patient had no chest discomfort or EKG changes with the inflation. He received Angiomax per protocol as well as oral loading dose of Effient. RESULTS: Successful stenting of the proximal left circumflex with reduction in stenosis from 99% to 0% with chronically occluded distal obtuse marginal branch. RECOMMENDATIONS: Patient will be continued on aspirin, Effient, beta renetta, and statin. The importance of dual antiplatelet treatment were discussed with the patient and his family who are in full understanding and agreement. Duration of procedure: 56 minutes. MMODL / IJN: [id number] /
[2018-03-05 16:25] LABS: Glucose,Whole Blood 372 mg/dL (75-99)
[2018-03-05] MEDS: ATORVASTATIN 40 MG TAB PO SCH (17:02)
[2018-03-05] MEDS: CINACALCET 30 MG TAB PO SCH (17:03)
[2018-03-05] MEDS: LISINOPRIL 10 MG TAB PO SCH (17:03)
[2018-03-05] MEDS ORDERED: ATORVASTATIN 20 MG TAB PO SCH (17:30)
[2018-03-05 20:24] LABS: Glucose,Whole Blood 226 mg/dL (75-99)
[2018-03-05] MEDS: INSULIN LISPRO 1 UNIT SQ-PUMP SCH (22:24)
--- NOTE | 2018-03-06 05:11 | PN ---
PROGRESS NOTE DATE OF SERVICE: 03/05/2018. PRESENTING COMPLAINT: Chest pain. INTERVAL HISTORY: The patient with multiple medical problems including hemodialysis presented with 2 hours of chest pain. The patient is on insulin pump. Patient had ruled in for an acute CT. I saw this patient this morning. No further chest pain on IV heparin. Awaiting a cardiac catheterization. No shortness of breath. The patient does feel a bit tired and rundown. REVIEW OF SYSTEMS: Review of systems done for constitutional, cardiovascular, GI, pulmonary; relevant findings above. CURRENT MEDICATIONS: Current medications are reviewed that include IV heparin, aspirin. PHYSICAL EXAMINATION: On examination, temperature 96.5, pulse 61, respirations 20, blood pressure 138/62, pulse ox 98% on room air. GENERAL APPEARANCE: Lying in bed, awake. EYES: Pupils equal. Conjunctivae normal. HENT: External appearance of nose and ears normal. Oral cavity normal. NECK: JVD not raised. Mass not palpable. RESPIRATORY: Effort normal. Lungs are clear. CARDIOVASCULAR: First and second sounds normal. No edema. ABDOMEN: Soft, nontender. Liver and spleen not palpable. PSYCHIATRY: Alert and oriented x3. Mood and affect normal. INVESTIGATIONS: Troponin 0.5, 3.3, 6.1. ASSESSMENT: 1. Acute non-ST elevation myocardial infarction in a patient with known coronary artery disease, pending cardiac catheterization this morning. 2. Coronary artery disease, prior history of coronary artery bypass and stent. 3. Diabetes mellitus type 2, chronically on insulin pump. 4. Essential hypertension. 5. End-stage kidney disease on hemodialysis Sunday, Sunday and Sunday. 6. Iron deficiency anemia. PLAN: Care was discussed with the patient. The patient to continue on IV heparin pending cardiac catheterization. Will follow. MMODL / IJN: [id number] /
[2018-03-06 05:51] LABS: Glucose,Whole Blood 82 mg/dL (75-99)
[2018-03-06 06:55] LABS: Basophils % (A) 0 %; Eosinophils # (A) 0.2 k/uL (0-0.7); Eosinophils % (A) 4 %; HCT 32.3 % (39.0-53.0); HGB 10.3 gm/dL (13.0-17.5); Lymphocytes # (A) 0.8 k/uL (1.0-4.8); Lymphocytes % (A) 22 %; MCH 29.2 pg (25.0-35.0); MCHC 31.7 g/dL (31.0-37.0); MCV 92.1 fL (80.0-100.0); Mean Platelet Volume 6.7; Monocytes # (A) 0.3 k/uL (0-1.0); Monocytes % (A) 7 %; Neutrophils # (A) 2.5 k/uL (1.3-7.7); Neutrophils % (A) 65 %; RBC 3.51 m/uL (4.30-5.90); RDW 14.2 % (11.5-15.5); WBC 3.9 k/uL (3.8-10.6)
[2018-03-06 07:35] LABS: Calcium 7.1 mg/dL (8.4-10.2); Potassium 4.2 mmol/L (3.5-5.1)
[2018-03-06 08:10] LABS: Platelet Count 93 k/uL (150-450)
[2018-03-06 08:13] LABS: Polychromasia Present
[2018-03-06 08:14] LABS: Anisocytosis (M) Present; Poikilocytosis (M) Present
[2018-03-06] MEDS: SEVELAMER 800 MG TAB PO SCH ×3 (08:33→17:32)
[2018-03-06] MEDS: CARVEDILOL 12.5 MG TAB PO SCH (08:34)
[2018-03-06] MEDS: FUROSEMIDE 40 MG TAB PO SCH (08:34)
[2018-03-06] MEDS: RANOLAZINE 500 MG TAB.ER.12H PO SCH (08:35)
[2018-03-06] MEDS ORDERED: ASPIRIN 81 MG PO SCH (09:00)
[2018-03-06 09:59] VITALS: BMI 32.2
[2018-03-06 11:46] LABS: Glucose,Whole Blood 123 mg/dL (75-99)
--- NOTE | 2018-03-06 12:16 | P.PN ---
Subjective Patient is seen in follow-up for end-stage renal disease. He is maintained on hemodialysis on a Sunday schedule. He is currently seeing what undergoing hemodialysis. Currently resting in bed. Denies chest pain or shortness of breath. Patient had cardiac catheterization yesterday with a stent placed to the circumflex. Vital signs are stable. General: The patient appeared well nourished and normally developed. HEENT: Head exam is unremarkable. Neck is without jugular venous distension. LUNGS: Lungs are clear to auscultation and percussion. Breath sounds decreased. HEART: Rate and Rhythm are regular. First and second heart sounds normal. No murmurs, rubs or gallops. ABDOMEN: Abdominal exam reveals normal bowel sounds. Non-tender and non- distended. No evidence of peritonitis. EXTREMITITES: No clubbing, cyanosis, or edema. Objective - Vital Signs Vital signs: Vital Signs Temp 97.0 F L 03/06/18 08:00 Pulse 58 L 03/06/18 08:00 Resp 20 03/06/18 08:00 BP 147/65 03/06/18 08:00 Pulse Ox 100 03/06/18 08:00 Intake & Output 03/05/18 03/06/18 03/06/18 18:59 06:59 18:59 Intake Total 705.167 960 400 Balance 705.167 960 400 Weight 99 kg 99 kg Intake: IV 207 Intake, IV Titration 258.167 Amount Dextrose 5%-0.45% NaCl 1, 75 000 ml @ 75 mls/hr IV . [id number] [facility] Rx#:[id number] Heparin Sod,Pork in 0.45% 181.667 NaCl 25,000 unit In 0.45 % NaCl 1 500ml.bag @ 10.2 UNITS/KG/HR 20.07 mls/hr IV .Q24H [facility] Rx#: [id number] Nitroglycerin-D5w Pmx 50 1.5 mg In Dextrose/Water 1 250ml.bag @ 5 MCG/MIN 1.5 mls/hr IV .Q24H ONE Rx#: [id number] Oral 240 960 400 Other: # Voids 2 - Labs CBC & Chem 7: 03/06/18 06:39 03/06/18 06:39 Labs: Abnormal Lab Results - Last 24 Hours (Table) 03/05/18 03/05/18 03/06/18 Range/Units 16:16 20:23 06:39 RBC 3.51 L (4.30-5.90) m/uL Hgb 10.3 L (13.0-17.5) gm/dL Hct 32.3 L (39.0-53.0) % Plt Count 93 L (150-450) k/uL Lymphocytes # 0.8 L (1.0-4.8) k/uL Sodium (137-145) mmol/L BUN (9-20) mg/dL Creatinine (0.66-1.25) mg/dL Glucose (74-99) mg/dL POC Glucose (mg/dL) 372 H 226 H (75-99) mg/dL Calcium (8.4-10.2) mg/dL 03/06/18 03/06/18 Range/Units 06:39 11:36 RBC (4.30-5.90) m/uL Hgb (13.0-17.5) gm/dL Hct (39.0-53.0) % Plt Count (150-450) k/uL Lymphocytes # (1.0-4.8) k/uL Sodium 135 L (137-145) mmol/L BUN 50 H (9-20) mg/dL Creatinine 7.75 H* (0.66-1.25) mg/dL Glucose 67 L (74-99) mg/dL POC Glucose (mg/dL) 123 H (75-99) mg/dL Calcium 7.1 L (8.4-10.2) mg/dL Assessment and Plan Plan: Assessment: 1. End-stage renal disease maintained on hemodialysis on a Sunday schedule via right upper extremity AV fistula. 2. Chest pain. Status post cardiac catheterization on March 05 with stent placed to the proximal left circumflex artery. 3. Anemia of chronic kidney disease. Hemoglobin at goal. 4. Hypertension with chronic kidney disease. Controlled. 5. Insulin-dependent diabetes mellitus. 6. Chronic kidney disease mineral bone disease maintained on Renvela. 7. Status post parathyroidectomy maintained on calcium and vitamin D supplementation as outpatient. Plan: Currently seen while undergoing hemodialysis. Next treatment on Sunday. Potential discharge after dialysis today.
[2018-03-06 12:34] VITALS: TEMP 97.1
--- NOTE | 2018-03-06 15:16 | P.PN ---
Subjective Progress Note Date: 03/06/18 This is a 63-year-old gentleman who follows with Dr. Cordero in the office. He has a known history of end-stage renal disease on hemodialysis, diabetes, hypertension, hyperlipidemia, patient had coronary artery bypass grafting surgery 2, second bypass surgery and aortic valve replacement was also performed at that time. Patient states he was at dialysis yesterday, became hypotensive and shortly thereafter developed chest pressure and heaviness. states he had just recently changed his insulin pump and the needle was kinked, his blood sugars were elevated and he felt the chest pain was secondary to that. Because of the chest pain he presented to the hospital for further evaluation. Initial EKG on arrival here showed a normal sinus rhythm with lateral T-wave inversion. Subsequent EKG shows normal sinus rhythm with lateral T-wave inversion. Blood pressure on arrival here 185/77, heart rate in the 70s, not 100% on 2 L of oxygen. Blood pressure this morning 104/60 with a heart rate in the 80s, 99% on room air. Laboratory data was reviewed, white blood cell count 4.5, hemoglobin 11.1, platelet count 121. Sodium 135, potassium 4.8, BUN 29, creatinine 4.0. Troponins 0.52, 3.3, 6.1. At the time of my examination this morning, patient is currently chest pain-free. 03/06/2018 Patient was taken to the cardiac catheterization lab yesterday where he underwent angioplasty and stenting of the circumflex artery by Dr. Cordero. Echo revealed normal left ventricular systolic function. EKG from this morning shows normal sinus rhythm with no changes from post-PCI. Time of my examination patient is undergoing dialysis. Denies any chest pain in his breathing is stable. Blood pressure 146/60, heart rate in the 50s, 100% on room air. White blood cell count 3.9, hemoglobin 10.3, platelet count 93. Sodium 135, potassium 4.2, BUN 50, creatinine 7.7. Objective - Vital Signs Vital signs: Vital Signs Temp 97.1 F L 03/06/18 12:00 Pulse 55 L 03/06/18 12:00 Resp 19 03/06/18 12:00 BP 147/70 03/06/18 12:00 Pulse Ox 98 03/06/18 12:00 Intake & Output 03/05/18 03/06/18 03/06/18 18:59 06:59 18:59 Intake Total 705.167 960 550 Balance 705.167 960 550 Weight 99 kg 99 kg Intake: IV 207 Intake, IV Titration 258.167 Amount Dextrose 5%-0.45% NaCl 1, 75 000 ml @ 75 mls/hr IV . [id number] [facility] Rx#:[id number] Heparin Sod,Pork in 0.45% 181.667 NaCl 25,000 unit In 0.45 % NaCl 1 500ml.bag @ 10.2 UNITS/KG/HR 20.07 mls/hr IV .Q24H [facility] Rx#: [id number] Nitroglycerin-D5w Pmx 50 1.5 mg In Dextrose/Water 1 250ml.bag @ 5 MCG/MIN 1.5 mls/hr IV .Q24H ONE Rx#: [id number] Oral 240 960 550 Other: # Voids 2 - Exam PHYSICAL EXAMINATION: GENERAL: 63-year-old gentleman in no acute distress at the time of my examination HEENT: Head is atraumatic, normocephalic. Pupils equal, round. Sclera anicteric. Conjunctiva are clear. Mucous membranes of the mouth are moist. Neck is supple. There is no elevated jugular venous pressure. No carotid bruit is heard. HEART EXAMINATION: Heart S1 and S2 systolic murmur is heard. CHEST EXAMINATION: Lungs are clear to auscultation and precussion. No chest wall tenderness is noted on palpation or with deep breathing. ABDOMEN: Soft, nontender. Bowel sounds are heard. No organomegaly noted. EXTREMITIES: 2+ peripheral pulses with no evidence of peripheral edema and no calf tenderness noted. Right groin soft, no evidence of any hematoma. NEUROLOGIC patient is awake, alert and oriented X3. . - Labs CBC & Chem 7: 03/06/18 06:39 03/06/18 06:39 Labs: Abnormal Lab Results - Last 24 Hours (Table) 03/05/18 03/05/18 03/06/18 Range/Units 16:16 20:23 06:39 RBC 3.51 L (4.30-5.90) m/uL Hgb 10.3 L (13.0-17.5) gm/dL Hct 32.3 L (39.0-53.0) % Plt Count 93 L (150-450) k/uL Lymphocytes # 0.8 L (1.0-4.8) k/uL Sodium (137-145) mmol/L BUN (9-20) mg/dL Creatinine (0.66-1.25) mg/dL Glucose (74-99) mg/dL POC Glucose (mg/dL) 372 H 226 H (75-99) mg/dL Calcium (8.4-10.2) mg/dL 03/06/18 03/06/18 Range/Units 06:39 11:36 RBC (4.30-5.90) m/uL Hgb (13.0-17.5) gm/dL Hct (39.0-53.0) % Plt Count (150-450) k/uL Lymphocytes # (1.0-4.8) k/uL Sodium 135 L (137-145) mmol/L BUN 50 H (9-20) mg/dL Creatinine 7.75 H* (0.66-1.25) mg/dL Glucose 67 L (74-99) mg/dL POC Glucose (mg/dL) 123 H (75-99) mg/dL Calcium 7.1 L (8.4-10.2) mg/dL Assessment and Plan Plan: Assessment and plan #1 chest discomfort with abnormality in troponins suggesting Q wave FL. Status post angioplasty and stenting of the circumflex artery #2 known history of coronary artery disease with prior bypass, patient also had a redo bypass and aortic valve replacement with bioprosthetic valve. 3 end-stage renal disease on hemodialysis #4 hypertension #5 diabetes #6 hyperlipidemia #7 prior history of smoking Plan Cardiology's perspective, patient may be able to be discharged home today. We will make him a follow-up appointment in the office with Dr. Cordero post discharge. DNP note has been reviewed, I agree with a documented findings and plan of care. Patient was seen and examined.
[2018-03-06] MEDS ORDERED: PRASUGREL 10 MG TAB PO SCH (15:44)
[2018-03-06 16:14] VITALS: BP 151/69; PULSE 62; RESP 20
[2018-03-06] MEDS: ATORVASTATIN 40 MG TAB PO SCH (17:30)
[2018-03-06] MEDS: LISINOPRIL 10 MG TAB PO SCH (17:31)
[2018-03-06] MEDS: CINACALCET 30 MG TAB PO SCH (17:31)
--- NOTE | 2018-03-06 23:03 | DS ---
DISCHARGE SUMMARY DATE OF ADMISSION: 03/04/2018 DATE OF DISCHARGE: 03/06/2018 FINAL DIAGNOSES: 1. Acute xrh-MI-ahdiipurr myocardial infarction in a patient with known coronary artery disease. 2. Coronary artery disease with prior history of coronary artery bypass and stent. 3. Diabetes mellitus, type 2, chronically on insulin pump. 4. Essential hypertension. 5. End-stage kidney disease, on hemodialysis Sunday, Sunday and Sunday. 6. Iron deficiency anemia. PROCEDURE: Cardiac catheterization with successful stenting to the proximal left circumflex and chronically occluded distal obtuse marginal branch. HOSPITAL COURSE: This patient presented with acute IN and had successful intervention as above. Today patient is doing well. No further chest pain. Got hemodialyzed. Seen by Cardiology. Up and about. No further cardiac symptoms. Patient's 2-D echocardiogram showed EF of 55% to 60%. Care was discussed with the patient. On examination, lungs are clear. CARDIOVASCULAR: First and second sounds normal. DISCHARGE MEDICATIONS: 1. Coreg 12.5 p.o. b.i.d. 2. Sensipar 60 mg p.o. daily. 3. Lasix 40 mg p.o. daily. 4. Humalog pump. 5. Zestril 10 mg p.o. daily. 6. Ranexa 1000 mg p.o. daily. 7. Imdur ER 60 mg p.o. daily. 8. Dialyvite 1 tablet p.o. daily. 9. Aspirin 81 mg p.o. daily. 10.Lipitor 40 mg p.o. daily. 11.Nitrostat 0.4 sublingually q.5 p.r.n. 12.Effient 10 mg p.o. daily. 13.Renvela 3200 mg p.o. before meals t.i.d. Follow up with Dr. Cordero on 03/11/2018. Follow up with Dr. Escalera on 03/14/2018. Follow up with Dr. Lama with hemodialysis. MMODL / IJN: [id number] /
== END 2018-03-06 18:11 | disposition home or self-care (01) | DRG 246 ==
LOC: EC 11:58 → 6SEL 15:44
PROVIDERS: ADMIT Hospitalist; ATTEND Hospitalist
PROC: 4A023N7 Measurement of Cardiac Sampling and Pressure, Left Heart, Percutaneous Approach (ICD-10-PCS; principal; 2018-03-05 14:02)
PROC: B2121ZZ Fluoroscopy of Single Coronary Artery Bypass Graft using Low Osmolar Contrast (ICD-10-PCS; principal; 2018-03-05 14:02)
PROC: B2111ZZ Fluoroscopy of Multiple Coronary Arteries using Low Osmolar Contrast (ICD-10-PCS; principal; 2018-03-05 14:02)
PROC: 027034Z Dilation of Coronary Artery, One Artery with Drug-eluting Intraluminal Device, Percutaneous Approach (ICD-10-PCS; principal; 2018-03-05 14:02)
PROC: 5A1D70Z Performance of Urinary Filtration, Intermittent, Less than 6 Hours Per Day (ICD-10-PCS; 2018-03-05 14:02)
DX: I21.4 Non-ST elevation (NSTEMI) myocardial infarction (principal); N18.6 End stage renal disease; I13.2 Hypertensive heart and chronic kidney disease with heart failure and with stage 5 chronic kidney disease, or end stage renal disease; I12.0 Hypertensive chronic kidney disease with stage 5 chronic kidney disease or end stage renal disease; D50.9 Iron deficiency anemia, unspecified; D63.1 Anemia in chronic kidney disease; E03.9 Hypothyroidism, unspecified; E11.22 Type 2 diabetes mellitus with diabetic chronic kidney disease; E11.65 Type 2 diabetes mellitus with hyperglycemia; Z96.41 Presence of insulin pump (external) (internal); E78.5 Hyperlipidemia, unspecified; H53.8 Other visual disturbances; I25.10 Atherosclerotic heart disease of native coronary artery without angina pectoris; I25.2 Old myocardial infarction; I50.9 Heart failure, unspecified; Z79.02 Long term (current) use of antithrombotics/antiplatelets; Z79.4 Long term (current) use of insulin; Z79.899 Other long term (current) drug therapy; Z87.891 Personal history of nicotine dependence; Z95.1 Presence of aortocoronary bypass graft; Z95.3 Presence of xenogenic heart valve; Z99.2 Dependence on renal dialysis; Z88.0 Allergy status to penicillin; Z95.5 Presence of coronary angioplasty implant and graft
CPT/HCPCS: 36415; 80048; 80053; 82550; 82553; 83735; 84484; 85025; 85610; 85730; 90935; 93005; 93306; 93455; 96365; 96366; 99285

== ENCOUNTER → 2018-07-11 | Outpatient (CLI) | payer MEDICARE, BC | END | disposition home or self-care (01) | LOC: LABWHC1 12:02 | PROVIDERS: ATTEND Orthopaedic Surgery Hand Surgery | DX: M65.352 Trigger finger, left little finger (principal) | CPT/HCPCS: 36415; 84132 ==

== ENCOUNTER → 2018-08-13 | Outpatient (CLI) | payer MEDICARE, BC ==
[2018-08-13 17:04] LABS: Albumin 3.9 g/dL (3.80-4.90); Albumin/Globulin Ratio 1.86 (1.20-2.10); Anion Gap 11.5 mmol/L (4.00-12.00); Carbon Dioxide 27.5 mmol/L (21.6-31.8); Globulin 2.1 g/dL (1.6-3.3); LDL Cholesterol,Calculated 52.8 mg/dL (0.0-131.0); Total Bilirubin 0.6 mg/dL (0.2-1.2); VLDL Calculation 16.2 mg/dL (5.00-40.00)
[2018-08-13 19:05] LABS: Hemoglobin A1C 6.9 % (4.0-6.0)
== END | disposition home or self-care (01) ==
LOC: LABWHC1 10:12
PROVIDERS: ATTEND Internal Medicine Endocrinology, Diabetes & Metabolism
DX: E10.65 Type 1 diabetes mellitus with hyperglycemia (principal); E21.2 Other hyperparathyroidism
CPT/HCPCS: 36415; 80053; 80061; 82043; 82570; 83036; 83970; 84443

== ENCOUNTER 2018-10-02 06:57 | Day surgery (SDC) | payer MEDICARE, BC ==
[2018-09-27 11:03] VITALS: BMI 31.1
[~2018-10-02 06:57] MED LIST: DEXAMETHASONE SOD PHOSPHATE 10 MG/ML 1 ML VIAL IV ONE; HYDROmorphone 0.5 MG/0.5 ML SYRINGE IVP PRN; LACTATED RINGERS 1,000 ML IV SCH; LIDOCAINE 1% 20 ML VIAL (10MG/ML) FOR IV START INTRADERMA PRN; MIDAZOLAM (PF) 2 MG/2 ML VIAL IV PRN; MOXIFLOXACIN HCL 0.5% DROPS 3 ML BTL OP ONE; ONDANSETRON 4 MG/2 ML VIAL IVP ONE; SCOPOLAMINE 1.5MG/72HR PATCH TRANSDERM ONE; TETRACAINE 0.5% OPHTH (PF) DROPS 4 ML BTL OP ONE; TIMOLOL 0.5% OPHTH DROPS 5 ML BTL OP ONE
[2018-10-02] MEDS: PHENYLEPHRINE 2.5% OPHTH DRP 2ML OP NR ×3 (07:10→07:22)
[2018-10-02] MEDS: CYCLOPENTOLATE 1% OPHTH SOLN 2 ML BTL OP ONE ×3 (07:13→07:25)
[2018-10-02 07:25] VITALS: RESP 18; TEMP 97.7
[2018-10-02] MEDS ORDERED: SODIUM CHLORIDE 0.9% 1,000 ML IV ONE (07:30)
[2018-10-02 07:32] LABS: Glucose,Whole Blood 139 mg/dL (75-99)
[2018-10-02] MEDS ORDERED: MIDAZOLAM 2 MG/2 ML VIAL ONE (08:08)
[2018-10-02] MEDS ORDERED: fentaNYL (PF) 50 MCG/ML 2 ML AMP ONE (08:08)
[2018-10-02] MEDS ORDERED: BALANCED SALT IRRIG SOLN COMB2 15 ML IRRIG.SOLN IRRIGATION ONE (08:27)
[2018-10-02] MEDS ORDERED: DUOVISC KIT (GREEN BOX) INTRAOCULA ONE (08:27)
[2018-10-02] MEDS ORDERED: LIDOCAINE 1% (PF) 10MG/ML VIAL SQ ONE (08:27)
[2018-10-02] MEDS ORDERED: TRYPAN BLUE 0.06% SYRINGE 0.5 ML SYRINGE INTRAOCULA ONE (08:28)
[2018-10-02] MEDS ORDERED: EPINEPHrine (PF) 0.3 ML in BALANCED SALT IRRIG SOLN COMB2 500 ML IRRIGATION ONE (08:29)
[2018-10-02] MEDS ORDERED: EPINEPHrine 1 MG/ML 1 ML AMP IRRIGATION ONE (08:33)
--- NOTE | 2018-10-02 08:51 | P.OP ---
Date of Procedure: 10/02/18 Preoperative Diagnosis: NS & CS & glaucoma moderate stage Postoperative Diagnosis: same Procedure(s) Performed: PIOL & iStent OS Implants: PCB00 33.0 & iStent [id number] Anesthesia: MAC Surgeon: Jj Live Estimated Blood Loss (ml): 2 Pathology: none sent Condition: stable Disposition: same day Indications for Procedure: blurry vision and glaucoma Operative Findings: No complications
[2018-10-02 09:32] VITALS: BP 156/70; PULSE 73
--- NOTE | 2018-10-02 12:36 | OP ---
OPERATIVE REPORT DATE OF SURGERY: 10/02/2018. PROCEDURE: Phacoemulsification of cataract and intraocular lens implant of the left eye with eye stent implantation. PREOPERATIVE DIAGNOSIS: Nuclear sclerosis, cortical sclerosis, primary open-angle glaucoma, moderate stage. POSTOPERATIVE DIAGNOSIS: Nuclear sclerosis, cortical sclerosis, primary open-angle glaucoma, moderate stage. SURGEON: Dr. Jj Live. ANESTHESIA: Topical. ESTIMATED BLOOD LOSS: None. SPECIMEN: None. NARRATIVE: After obtaining the appropriate consent, the patient was brought to the operating room. There he was placed on a cardiac monitoring, prepped and draped in the usual sterile manner. He was approached from his left temporal side. At the 5 o'clock position, an MVR blade was used to create a paracentesis port. Through this opening 1% Xylocaine MPF 50/50 mix of balanced salt solution was injected into the anterior chamber. This was followed by Trypan blue in the anterior chamber for approximately 2 minutes. The Trypan blue was irrigated away and Viscoat was used to stabilize the anterior chamber. At the 3 o'clock position, a 2.5 mm keratome was used to create a self-sealing corneal flap incision. The patient was then asked to rotate to his right, approximately 45 degrees and gonal prism was placed on the eye to identify the trabecular meshwork which did stain well with the Trypan medication. An eye stent, model TTS 100L was passed across the anterior chamber and placed in the trabecular meshwork on the second attempt. The patient was then rotated into the normal supine position and a cystotome was used to begin a continuous tear capsulorrhexis which was completed using the Utrata forceps. Hydrodissection and hydrodelineation of the lens was accomplished with balanced salt solution. Phacoemulsification lens utilizing phaco chop was accomplished in 12.07 seconds at 11% power. Additional Xylocaine MPF was instilled in the anterior chamber and the removal of the remaining cortex was accomplished under irrigation and aspiration along with careful polishing of the posterior capsule in the capsule vacuum mode. Provisc was then used to stabilize the capsular bag and a Tu and Tu PCB00 33.0 diopter posterior chamber intraocular lens was then inserted into the capsular bag without difficulty. The remaining viscoelastic in and around the intra- ocular lens as well as the anterior chamber was irrigated away and the eye was brought to normal intraocular pressure through the paracentesis port. One last look at the trabecular meshwork was accomplished with a gonal prism to confirm placement of the stent. He then received 2 drops of 0.5% timolol followed by 2 drops of moxifloxacin and he was lightly patched and shielded in the usual manner. There were no complications from the procedure. He tolerated the procedure well and was returned to outpatient recovery in good condition. [place] / RISSA: [id number] /
== END 2018-10-02 09:55 | disposition home or self-care (01) ==
LOC: OR 06:57
PROVIDERS: ATTEND Ophthalmology
DX: E10.39 Type 1 diabetes mellitus with other diabetic ophthalmic complication (principal); H40.1132 Primary open-angle glaucoma, bilateral, moderate stage; H42 Glaucoma in diseases classified elsewhere; E10.36 Type 1 diabetes mellitus with diabetic cataract; E10.22 Type 1 diabetes mellitus with diabetic chronic kidney disease; E78.00 Pure hypercholesterolemia, unspecified; E10.311 Type 1 diabetes mellitus with unspecified diabetic retinopathy with macular edema; H40.033 Anatomical narrow angle, bilateral; H53.002 Unspecified amblyopia, left eye; H02.402 Unspecified ptosis of left eyelid; E10.51 Type 1 diabetes mellitus with diabetic peripheral angiopathy without gangrene; I25.10 Atherosclerotic heart disease of native coronary artery without angina pectoris; I25.2 Old myocardial infarction; E78.5 Hyperlipidemia, unspecified; I12.0 Hypertensive chronic kidney disease with stage 5 chronic kidney disease or end stage renal disease; N18.6 End stage renal disease; Z99.2 Dependence on renal dialysis; Z88.0 Allergy status to penicillin; Z88.8 Allergy status to other drugs, medicaments and biological substances; Z95.5 Presence of coronary angioplasty implant and graft; Z79.4 Long term (current) use of insulin; Z79.899 Other long term (current) drug therapy; Z79.02 Long term (current) use of antithrombotics/antiplatelets; Z95.1 Presence of aortocoronary bypass graft
CPT/HCPCS: 0191T; 66982; 84132

== ENCOUNTER 2018-10-30 09:43 | Day surgery (SDC) | payer MEDICARE, BC ==
[2018-10-10 14:49] VITALS: BMI 31.0
[~2018-10-30 09:43] MED LIST changes: -DEXAMETHASONE SOD PHOSPHATE 10 MG/ML 1 ML VIAL IV ONE; -HYDROmorphone 0.5 MG/0.5 ML SYRINGE IVP PRN; -MIDAZOLAM (PF) 2 MG/2 ML VIAL IV PRN; -SCOPOLAMINE 1.5MG/72HR PATCH TRANSDERM ONE
[2018-10-30] MEDS: CYCLOPENTOLATE 1% OPHTH SOLN 2 ML BTL OP ONE ×3 (10:18→11:03)
[2018-10-30] MEDS: PHENYLEPHRINE 2.5% OPHTH DRP 2ML OP NR ×3 (10:21→11:05)
[2018-10-30] MEDS: DEXTROSE 50%-WATER 50 ML SYRINGE IVP ONE ×2 (10:40→12:16)
[2018-10-30 10:42] LABS: Glucose,Whole Blood 61 mg/dL (75-99)
[2018-10-30 10:48] VITALS: RESP 16; TEMP 97.7
[2018-10-30 10:56] LABS: Glucose,Whole Blood 252 mg/dL (75-99)
[2018-10-30 10:56] LABS: Glucose,Whole Blood 24 mg/dL (75-99)
[2018-10-30 11:00] LABS: Potassium 3.5 mmol/L (3.5-5.1)
[2018-10-30 11:01] LABS: Glucose,Whole Blood 102 mg/dL (75-99)
[2018-10-30 11:01] LABS: Glucose,Whole Blood <20 mg/dL (75-99)
[2018-10-30 12:23] LABS: Glucose,Whole Blood 68 mg/dL (75-99)
[2018-10-30 12:27] LABS: Glucose,Whole Blood 99 mg/dL (75-99)
[2018-10-30] MEDS ORDERED: DEXTROSE 5%-0.45% NACL 1,000 ML IV SCH (12:30)
[2018-10-30] MEDS ORDERED: MIDAZOLAM 2 MG/2 ML VIAL ONE (12:42)
[2018-10-30] MEDS ORDERED: fentaNYL (PF) 50 MCG/ML 2 ML AMP ONE (12:42)
[2018-10-30] MEDS ORDERED: DUOVISC KIT (GREEN BOX) INTRAOCULA ONE (12:49)
[2018-10-30] MEDS ORDERED: BALANCED SALT IRRIG SOLN COMB2 15 ML IRRIG.SOLN INTRAOCULA ONE (12:49)
[2018-10-30] MEDS ORDERED: TRYPAN BLUE 0.06% SYRINGE 0.5 ML SYRINGE INTRAOCULA ONE (12:49)
[2018-10-30] MEDS ORDERED: EPINEPHrine (PF) 0.3 ML in BALANCED SALT IRRIG SOLN COMB2 500 ML IRRIGATION ONE (12:54)
[2018-10-30] MEDS ORDERED: CHONDROITIN-SOD HYALURONATE 1 EACH SYRINGE (0.75 ML) INTRAOCULA ONE (13:17)
--- NOTE | 2018-10-30 13:37 | P.OP ---
Date of Procedure: 10/30/18 Preoperative Diagnosis: NS & CS & glaucoma Postoperative Diagnosis: same wtih floppy iris Procedure(s) Performed: PIOL & iStent implantation right eye. Implants: PCB0 32.00 & iStent [id number] Anesthesia: MAC Surgeon: Jj Live Estimated Blood Loss (ml): 5 Pathology: none sent Condition: stable Disposition: same day Indications for Procedure: blurry vision & glaucoma Operative Findings: no complications
[2018-10-30] MEDS ORDERED: DEXTROSE 50%-WATER 50 ML SYRINGE IVP ONE (13:47)
[2018-10-30 13:56] LABS: Glucose,Whole Blood 88 mg/dL (75-99)
[2018-10-30 13:56] LABS: Glucose,Whole Blood 48 mg/dL (75-99)
[2018-10-30 14:05] VITALS: BP 136/62; PULSE 60
--- NOTE | 2018-10-31 06:34 | OP ---
OPERATIVE REPORT DATE OF SURGERY: 10/30/2018 PROCEDURES: Phacoemulsification of cataract and intraocular lens implant of the right eye with eye stent implantation of the right eye. PREOPERATIVE DIAGNOSES: Nuclear sclerosis, cortical sclerosis and primary open-angle glaucoma, moderate stage. POSTOPERATIVE DIAGNOSES: Nuclear sclerosis, cortical sclerosis and primary open-angle glaucoma, moderate stage. SURGEON: Dr. Jj Live. ANESTHESIA: Topical. ESTIMATED BLOOD LOSS: Less than 5 mL. SPECIMEN TAKEN: None. NARRATIVE: After obtaining the appropriate consent, the patient was brought to the operating room. There he was placed on a cardiac monitoring, prepped and draped in the usual sterile manner. He was approached from his right temporal side and at the 11 o'clock position an MVR blade was used to create a paracentesis port. Through this opening 1% Xylocaine MPF 50:50 mix with balanced salt solution was injected into the anterior chamber. This was followed by installation of Trypan blue which was left in place for approximately 90 seconds. Once this was irrigated away with balanced salt solution, Viscoat was used to stabilize the anterior chamber. At the 9 o'clock position, a 2.5 mm keratome was used to create a self-sealing flap incision in the Langerman's fashion. The patient was then asked to rotate his head to his left approximately 45 degrees and a small amount of Viscoat was placed on the patient's cornea. A gonioscopy lens was placed on the patient's eye and identification of the trabecular meshwork was easily made due to the previous marking with Trypan blue. During the course of the 3 attempts to implant the iStent device model [id number], the patient was inconsistent in maintaining his direction of gaze during the course of the procedure. There was some additional blood liberated into the anterior chamber from the attempts to pass the stent into the proper area of the anterior chamber angle. However, once it was accomplished at third attempt, it was confirmed within the trabecular meshwork. The patient was then rotated to the normal supine position and continuation of the cataract was accomplished. The first step was introducing a cystotome to begin a continuous tear capsulorrhexis which was then completed using the Utrata forceps. Hydrodissection and hydrodelineation of the lens was accomplished with balanced salt solution. Phacoemulsification of the lens utilizing phaco chop was accomplished at 15.94 seconds at 15% power. Additional Xylocaine MPF was instilled into the patient's eye and removal of the remaining cortex under irrigation and aspiration was accomplished without difficulty including removal of some debris on the posterior capsule in the capsule vacuum mode. Amvisc was then used to stabilize the capsular bag in the anterior chamber and an NADEEN PCB00 32.0 diopter posterior chamber intraocular lens was then inserted into the capsular bag without difficulty. The remaining viscoelastic was removed from in and around the intra-ocular lens as best possible as well as removal of any residual accumulated blood and viscoelastic from the anterior chamber of the patient's eye. The eye was then brought to normal intraocular pressures through the paracentesis port and the temporal incision was confirmed watertight. He then received 2 drops of 0.5% timolol followed by 2 drops of moxifloxacin was then lightly patched and shielded in the usual manner. Some question as to the stability of the temporal incision was identified, however, and ReSure was used to maintain proper closure at the end of the case. He was then lightly patched and shielded and returned to recovery in good condition. MMODL / IJN: [id number] /
== END 2018-10-30 14:45 | disposition home or self-care (01) ==
LOC: OR 09:43
PROVIDERS: ATTEND Ophthalmology
DX: E10.36 Type 1 diabetes mellitus with diabetic cataract (principal); H25.11 Age-related nuclear cataract, right eye; H40.1132 Primary open-angle glaucoma, bilateral, moderate stage; H47.393 Other disorders of optic disc, bilateral; I13.2 Hypertensive heart and chronic kidney disease with heart failure and with stage 5 chronic kidney disease, or end stage renal disease; E10.22 Type 1 diabetes mellitus with diabetic chronic kidney disease; N18.6 End stage renal disease; I50.9 Heart failure, unspecified; Z99.2 Dependence on renal dialysis; I25.10 Atherosclerotic heart disease of native coronary artery without angina pectoris; E78.5 Hyperlipidemia, unspecified; E10.51 Type 1 diabetes mellitus with diabetic peripheral angiopathy without gangrene; M19.90 Unspecified osteoarthritis, unspecified site; Z95.1 Presence of aortocoronary bypass graft; Z96.1 Presence of intraocular lens; Z79.02 Long term (current) use of antithrombotics/antiplatelets; Z79.4 Long term (current) use of insulin; Z79.52 Long term (current) use of systemic steroids; Z79.899 Other long term (current) drug therapy
CPT/HCPCS: 80051; 66982; C1780; C1783; J2250; J0171; J3010

== ENCOUNTER 2018-12-23 02:36 | Inpatient (IN) | payer MEDICARE, BC ==
[2018-12-23] MEDS ORDERED: FUROSEMIDE 10 MG/ML 10 ML VIAL IV STA (02:56)
[2018-12-23 02:59] LABS: Basophils % (A) 1 %; Eosinophils # (A) 0.3 k/uL (0-0.7); Eosinophils % (A) 5 %; HCT 33.9 % (39.0-53.0); HGB 10.9 gm/dL (13.0-17.5); Hypochromasia Slight; Lymphocytes # (A) 0.7 k/uL (1.0-4.8); Lymphocytes % (A) 14 %; MCH 30.4 pg (25.0-35.0); MCHC 32.1 g/dL (31.0-37.0); MCV 94.5 fL (80.0-100.0); Monocytes # (A) 0.2 k/uL (0-1.0); Monocytes % (A) 4 %; Neutrophils # (A) 3.9 k/uL (1.3-7.7); Neutrophils % (A) 74 %; Platelet Count 166 k/uL (150-450); RBC 3.59 m/uL (4.30-5.90); RDW 15.3 % (11.5-15.5); WBC 5.2 k/uL (3.8-10.6)
[2018-12-23 03:08] LABS: INR 0.9 (<1.2); Partial Thromboplastin Time 25.9 sec (22.0-30.0); Prothrombin Time 10.1 sec (9.0-12.0)
[2018-12-23 03:17] LABS: Albumin 4.2 g/dL (3.5-5.0); Calcium 8.1 mg/dL (8.4-10.2); Potassium 4.9 mmol/L (3.5-5.1); Total Bilirubin 0.8 mg/dL (0.2-1.3)
--- NOTE | 2018-12-23 03:21 | XR ---
EXAM: XR Chest, 2 Views CLINICAL HISTORY: ITS.REASON XR Reason: difficulty breathing TECHNIQUE: Frontal and lateral views of the chest. COMPARISON: Portable chest x-ray 03/04/2018 FINDINGS: Lungs: Pulmonary vascular congestion. Interstitial opacities throughout both lungs. Pleural space: No evidence of pneumothorax. Minimal right pleural effusion. Heart: Mild cardiomegaly. Mediastinum: Mediastinal structures are unremarkable. Bones/joints: Mild degenerative changes involve mid and lower thoracic spine. IMPRESSION: Mild cardiomegaly and pulmonary vascular congestion with findings suggesting congestive failure and interstitial pulmonary edema. Minimal right pleural effusion. <MYCVCSECTION> [employer] 12/23/18 03:27 Verify Receipt Verified receipt with Clerk Lakeisha Acosta on 12/23 03:26 (-04:00)
--- NOTE | 2018-12-23 03:27 | ED ---
General Adult HPI - General Stated complaint: ALIYAH Time Seen by Provider: 12/23/18 02:42 Source: EMS Mode of arrival: EMS Limitations: physical limitation - History of Present Illness Initial comments: Master is a 63-year-old gentleman with a history of end-stage renal disease on di alysis Sunday. Patient does still make urine. Patient states that he's been compliant with his dialysis however he is feeling fluid overloaded. He reports he felt short of breath throughout the day and this morning it became overwhelming. Patient states that he just needs to get this fluid off of them and is not scheduled for dialysis until 4:30. - Related Data Home Medications Medication Instructions Recorded Confirmed Carvedilol [Coreg] 12.5 mg PO BID 03/30/17 12/23/18 Furosemide [Lasix] 40 mg PO DAILY 03/30/17 12/23/18 INSULIN LISPRO (For Pump) [humaLOG See Protocol SQ-PUMP CONTINUOUS 03/30/17 12/23/18 (For Pump)] Lisinopril [Zestril] 10 mg PO DAILY@1730 03/30/17 12/23/18 Ranolazine [Ranexa] 1,000 mg PO DAILY 03/30/17 12/23/18 Isosorbide Mononitrate ER [Imdur] 60 mg PO DAILY 04/11/17 12/23/18 Dialyvite 1 tab PO DAILY 10/09/17 12/23/18 Clopidogrel [Plavix] 75 mg PO DAILY 09/27/18 12/23/18 Sevelamer [Renvela] 2,400 mg PO DAILY PRN 10/10/18 12/23/18 Previous Rx's Medication Instructions Recorded Atorvastatin [Lipitor] 40 mg PO DAILY@1730 #30 tab 03/06/18 Nitroglycerin Sl Tabs [Nitrostat] 0.4 mg SUBLINGUAL Q5M PRN #25 tab 03/06/18 Sevelamer [Renvela] 3,200 mg PO AC-TID #100 tab 03/06/18 Allergies Allergy/AdvReac Type Severity Reaction Status Date / Time Penicillins Allergy Unknown Verified 12/23/18 02:43 Childhood Review of Systems ROS Statement: Those systems with pertinent positive or pertinent negative responses have been documented in the HPI. ROS Other: All systems not noted in ROS Statement are negative. Past Medical History Past Medical History: Coronary Artery Disease (CAD), Chest Pain / Angina, Heart Failure, Diabetes Mellitus, Hyperlipidemia, Hypertension, Myocardial Infarction ([place]), Renal Disease, Thyroid Disorder, Vascular Disorder Additional Past Medical History / Comment(s): IDDM type I with insulin pump, ESRD with hemodialysis M,W,F, iron deficiency anemia, Last Myocardial Infarction Date:: 2006? History of Any Multi-Drug Resistant Organisms: None Reported Past Surgical History: Cardiac Valve Replacement, Coronary Bypass/CABG, Heart Catheterization, Heart Catheterization With Stent Additional Past Surgical History / Comment(s): AVF R forearm, Aortic Valve replacement (Swine), PCI with stents that collapsed, CABG twice, umbilical hernia repair, colonoscopy, catataract bilaterally Past Anesthesia/Blood Transfusion Reactions: No Reported Reaction Additional Past Anesthesia/Blood Transfusion Reaction / Comment(s): Pt has received blood in past without reaction. Date of Last Stent Placement:: 2006? Past Psychological History: No Psychological Hx Reported Smoking Status: Former smoker Past Alcohol Use History: None Reported Past Drug Use History: None Reported - Past Family History Mother Family Medical History: Renal Disease Additional Family Medical History / Comment(s): Mother at the age of 89yrs. Father Family Medical History: No Reported History Additional Family Medical History / Comment(s): Pt states father is healthy and is in his mid-late 80s. General Exam - General Exam Comments Initial Comments: Physical Exam GENERAL Chronically ill appearing, dialysis patient HENT: Normocephalic, Atraumatic. EYES: PERRL, EOMI PULMONARY: Crackles at bilateral bases, tachypnea, retractions CARDIOVASCULAR: Well-healed sternotomy scar Vascular access in the right arm There is a regular rate and rhythm without any murmurs gallops or rubs. 2+ pitting edema of the bilateral lower extremities to the mid thigh ABDOMEN: Soft and nontender with normal bowel sounds. SKIN: Skin is clear with no lesions or rashes and otherwise unremarkable. : Deferred NEUROLOGIC: Patient is alert and oriented x3. Moving all extremities spontaneously MUSCULOSKELETAL: Normal extremities with adequate strength and full range of motion. No lower extremity swelling or edema. No calf tenderness. PSYCHIATRIC: Normal psychiatric evaluation. Limitations: physical limitation Course Vital Signs 12/23/18 12/23/18 02:37 03:09 Temperature 97.8 F Pulse Rate 77 70 Respiratory 24 26 H Rate Blood Pressure 197/89 175/64 O2 Sat by Pulse 99 100 Oximetry EKG Findings - EKG Comments: EKG Findings:: EKG obtaind. EKG with a rate of 69, rhythm sinus with 1st degree AV block, a third axis, no prolonged at 236, QRS 84, QTC is [address] elevations or depressions no evidence of acute ischemia or infarction there is significant respiratory artifact. Medical Decision Making - Medical Decision Making Patient was seen and evaluated history is obtained from EMS Patient is a end-stage renal disease on dialysis patient who comes in acutely short of breath he has increased work of breathing he appears fluid overloaded Decision was made to place the patient on BiPAP EKG is nonischemic Labs are consistent with end-stage renal disease is no hyperkalemia creatinine is 8.3 troponin is mildly elevated at 0.07 and BNP is greater than 21,000 Patient was reevaluated after approximately 45 minutes on BiPAP he is breathing much easier now, blood pressure is improving he's feeling better however I do not feel he is stable for discharge home I don't feel he will tolerate dialysis well without the BiPAP and would recommend he stay in hospital for continued BiPAP. Patient is agreeable to this. 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 - Lab Data Result diagrams: 12/23/18 02:49 12/23/18 02:49 Lab Results 12/23/18 12/23/18 12/23/18 Range/Units 02:49 02:49 02:49 WBC 5.2 (3.8-10.6) k/uL RBC 3.59 L (4.30-5.90) m/uL Hgb 10.9 L (13.0-17.5) gm/dL Hct 33.9 L (39.0-53.0) % MCV 94.5 (80.0-100.0) fL MCH 30.4 (25.0-35.0) pg MCHC 32.1 (31.0-37.0) g/dL RDW 15.3 (11.5-15.5) % Plt Count 166 (150-450) k/uL Neutrophils % 74 % Lymphocytes % 14 % Monocytes % 4 % Eosinophils % 5 % Basophils % 1 % Neutrophils # 3.9 (1.3-7.7) k/uL Lymphocytes # 0.7 L (1.0-4.8) k/uL Monocytes # 0.2 (0-1.0) k/uL Eosinophils # 0.3 (0-0.7) k/uL Basophils # 0.0 (0-0.2) k/uL Hypochromasia Slight PT (9.0-12.0) sec INR (<1.2) APTT (22.0-30.0) sec Sodium 142 (137-145) mmol/L Potassium 4.9 (3.5-5.1) mmol/L Chloride 102 (98-107) mmol/L Carbon Dioxide 30 (22-30) mmol/L Anion Gap 10 mmol/L BUN 54 H (9-20) mg/dL Creatinine 8.30 H* (0.66-1.25) mg/dL Est GFR (CKD-EPI)AfAm 7 (>60 ml/min/1.73 sqM) Est GFR (CKD-EPI)NonAf 6 (>60 ml/min/1.73 sqM) Glucose 172 H (74-99) mg/dL Calcium 8.1 L (8.4-10.2) mg/dL Total Bilirubin 0.8 (0.2-1.3) mg/dL AST 96 H (17-59) U/L ALT 64 (21-72) U/L Alkaline Phosphatase 152 H (38-126) U/L Troponin I (0.000-0.034) ng/mL NT-Pro-B Natriuret Pep 62396 pg/mL Total Protein 7.0 (6.3-8.2) g/dL Albumin 4.2 (3.5-5.0) g/dL 12/23/18 12/23/18 Range/Units 02:49 02:49 WBC (3.8-10.6) k/uL RBC (4.30-5.90) m/uL Hgb (13.0-17.5) gm/dL Hct (39.0-53.0) % MCV (80.0-100.0) fL MCH (25.0-35.0) pg MCHC (31.0-37.0) g/dL RDW (11.5-15.5) % Plt Count (150-450) k/uL Neutrophils % % Lymphocytes % % Monocytes % % Eosinophils % % Basophils % % Neutrophils # (1.3-7.7) k/uL Lymphocytes # (1.0-4.8) k/uL Monocytes # (0-1.0) k/uL Eosinophils # (0-0.7) k/uL Basophils # (0-0.2) k/uL Hypochromasia PT 10.1 (9.0-12.0) sec INR 0.9 (<1.2) APTT 25.9 (22.0-30.0) sec Sodium (137-145) mmol/L Potassium (3.5-5.1) mmol/L Chloride (98-107) mmol/L Carbon Dioxide (22-30) mmol/L Anion Gap mmol/L BUN (9-20) mg/dL Creatinine (0.66-1.25) mg/dL Est GFR (CKD-EPI)AfAm (>60 ml/min/1.73 sqM) Est GFR (CKD-EPI)NonAf (>60 ml/min/1.73 sqM) Glucose (74-99) mg/dL Calcium (8.4-10.2) mg/dL Total Bilirubin (0.2-1.3) mg/dL AST (17-59) U/L ALT (21-72) U/L Alkaline Phosphatase (38-126) U/L Troponin I 0.077 H* (0.000-0.034) ng/mL NT-Pro-B Natriuret Pep pg/mL Total Protein (6.3-8.2) g/dL Albumin (3.5-5.0) g/dL Disposition Clinical Impression: Flash pulmonary edema, Acute pulmonary edema, ESRD (end stage renal disease) on dialysis, Volume overload Disposition: ADMITTED IP TO THIS HOSP Condition: Serious Referrals: Travis Escalera MD [Primary Care Provider] - 1-2 days
[2018-12-23] MEDS ORDERED: NALOXONE 0.4 MG/ML 1 ML VIAL IV PRN (04:00)
--- NOTE | 2018-12-23 10:24 | P.NPCON ---
History of Present Illness - Reason for Consult end stage renal disease - History of Present Illness Reason for consultation: End-stage renal disease History of present illness: Patient is a 63-year-old male seen in consultation for end-stage renal disease. He is maintained on hemodialysis on a Sunday schedule. Patient's last treatment was on Sunday. Patient states last night around 1:30 in the morning he became short of breath and couldn't make it to dialysis this morning. Patient's chest x-ray was suggestive of vascular congestion. He is currently seen while undergoing hemodialysis. Patient's cramping quite a bit during the treatment. He denies chest pain at this time but did have chest pain on Sunday. She denies drinking excessive amounts of fluids or eating heavy a larissa of salt over the weekend. No vomiting or diarrhea. No edema in his lower extremities. Patient does have history of coronary artery disease status post CABG and cardiac stents placement. Hemodynamically stable. He was on BiPAP in the ER but is now on nasal cannula. Vital signs are stable. General: The patient appeared well nourished and normally developed. HEENT: Head exam is unremarkable. Neck is without jugular venous distension. LUNGS: Breath sounds decreased. HEART: Rate and Rhythm are regular. First and second heart sounds normal. No murmurs, rubs or gallops. ABDOMEN: Abdominal exam reveals normal bowel sounds. Non-tender and non- distended. No evidence of peritonitis. EXTREMITITES: No clubbing, cyanosis, or edema. Past Medical History Past Medical History: Coronary Artery Disease (CAD), Chest Pain / Angina, Heart Failure, Diabetes Mellitus, Eye Disorder, Hyperlipidemia, Hypertension, Myocardial Infarction ([place]), Renal Disease Additional Past Medical History / Comment(s): IDDM type I with insulin pump, neuropathy bilateral legs, ESRD with hemodialysis M,W,F, iron deficiency anemia, past L eye ocular palsy-resolved. Last Myocardial Infarction Date:: 03/04/18 History of Any Multi-Drug Resistant Organisms: None Reported Past Surgical History: Cardiac Valve Replacement, Coronary Bypass/CABG, Heart Catheterization, Heart Catheterization With Stent Additional Past Surgical History / Comment(s): AVF R forearm, Aortic Valve replacement (Swine), PCI with stents, CABG twice-first surgery at [facility] and 2nd surgery at [facility] with post op infection, umbilical hernia repair, colonoscopy, catataract bilaterally with lens implants, thyroid surgery. Past Anesthesia/Blood Transfusion Reactions: No Reported Reaction Additional Past Anesthesia/Blood Transfusion Reaction / Comment(s): Pt has received blood in past without reaction. Date of Last Stent Placement:: 03/04/18 Smoking Status: Former smoker - Past Family History Mother Family Medical History: Cancer, Renal Disease Additional Family Medical History / Comment(s): Mother is . Pt does not recall type of cancer. Father Family Medical History: No Reported History Additional Family Medical History / Comment(s): Pt states father is healthy and is in his mid-late 80s. Medications and Allergies Home Medications Medication Instructions Recorded Confirmed Type Carvedilol [Coreg] 12.5 mg PO BID 03/30/17 12/23/18 History INSULIN LISPRO (For Pump) [humaLOG See Protocol SQ-PUMP CONTINUOUS 03/30/17 12/23/18 History (For Pump)] Lisinopril [Zestril] 10 mg PO DAILY@1730 03/30/17 12/23/18 History Ranolazine [Ranexa] 1,000 mg PO DAILY 03/30/17 12/23/18 History Isosorbide Mononitrate ER [Imdur] 60 mg PO DAILY 04/11/17 12/23/18 History Dialyvite 1 tab PO DAILY 10/09/17 12/23/18 History Atorvastatin [Lipitor] 40 mg PO DAILY@1730 #30 tab 03/06/18 12/23/18 Rx Nitroglycerin Sl Tabs [Nitrostat] 0.4 mg SUBLINGUAL Q5M PRN #25 tab 03/06/18 12/23/18 Rx Sevelamer [Renvela] 3,200 mg PO AC-TID #100 tab 03/06/18 12/23/18 Rx Clopidogrel [Plavix] 75 mg PO DAILY 09/27/18 12/23/18 History Sevelamer [Renvela] 2,400 mg PO DAILY PRN 10/10/18 12/23/18 History Furosemide [Lasix] 20 mg PO DAILY 12/23/18 12/23/18 History Allergies Allergy/AdvReac Type Severity Reaction Status Date / Time Penicillins Allergy Unknown Verified 12/23/18 02:43 Childhood Physical Exam Vitals: Vital Signs Temp Pulse Pulse Resp BP BP Pulse Ox 12/23/18 07:45 97.5 F L 66 20 126/65 98 12/23/18 06:26 98.4 F 64 24 151/73 100 12/23/18 04:15 68 28 H 159/74 100 12/23/18 03:09 70 26 H 175/64 100 12/23/18 02:37 97.8 F 77 24 197/89 99 Intake and Output 12/22/18 12/23/18 12/23/18 22:59 06:59 14:59 Output Total 100 Balance -100 Output: Urine 100 Other: Weight 98.883 kg Results - Lab Results Most recent lab results Calcium 8.1 mg/dL (8.4-10.2) L 12/23/18 02:49 12/23/18 02:49 12/23/18 02:49 Assessment and Plan Plan: Assessment: 1. End-stage renal disease maintained on hemodialysis on a Sunday schedule. 2. Acute hypoxic respiratory failure secondary to volume overload. 3. History of coronary artery disease status post CABG and cardiac stents placement. 4. Chronic kidney disease mineral bone disease maintained on Renvela. Patient is status post parathyroidectomy. 5. Hypertension with chronic kidney disease. Controlled. Plan: Currently seen while undergoing hemodialysis. I will decrease the blood flows and use sodium modeling and try for ultrafiltration as he is able to tolerate. Home antihypertensives and binders to be resumed. Thank you for the consultation. I will continue to follow the patient with you during his hospital stay.
[2018-12-23 11:35] LABS: Glucose,Whole Blood 166 mg/dL (75-99)
[2018-12-23] MEDS ORDERED: NITROGLYCERIN SL TABS 0.4 MG TAB SUBLINGUAL PRN (11:43)
[2018-12-23] MEDS ORDERED: SEVELAMER 800 MG TAB PO PRN (11:43)
[2018-12-23] MEDS: RANOLAZINE 500 MG TAB.ER.12H PO SCH (12:44)
[2018-12-23] MEDS: SEVELAMER 800 MG TAB PO SCH ×2 (12:44→17:44)
[2018-12-23] MEDS: CARVEDILOL 12.5 MG TAB PO SCH ×2 (12:44→17:44)
[2018-12-23] MEDS: CLOPIDOGREL 75 MG TAB PO SCH (12:44)
[2018-12-23] MEDS: FUROSEMIDE 20 MG TAB PO SCH (12:44)
[2018-12-23] MEDS: ISOSORBIDE MONONITRATE ER 60 MG TAB.ER.24H PO SCH (12:44)
[2018-12-23] MEDS ORDERED: INSULIN ASPART (NovoLOG) 100 UNIT/ML VIAL SQ PRN (12:49)
[2018-12-23] MEDS ORDERED: INSULIN PUMP ACTIVE INSULIN 1 EACH MISC MISCELLANE PRN (12:49)
[2018-12-23] MEDS ORDERED: INSPUCOR MISCELLANE PRN (12:49)
[2018-12-23] MEDS: FOLIC ACID-VIT B COMPLEX-VIT C 1 CAP PO SCH (12:49)
[2018-12-23] MEDS ORDERED: INSULIN PUMP BASAL RATES 1 EACH MISC MISCELLANE PRN (12:49)
[2018-12-23] MEDS ORDERED: INSULIN PUMP TARGET GLUCOSE 1 EACH MISC MISCELLANE PRN (12:49)
[2018-12-23 16:37] LABS: Glucose,Whole Blood 300 mg/dL (75-99)
[2018-12-23] MEDS: INSULIN PUMP MEAL BOLUS 1 UNIT MISC MISCELLANE SCH ×2 (17:43→21:30)
[2018-12-23] MEDS: ATORVASTATIN 40 MG TAB PO SCH (17:44)
[2018-12-23] MEDS: LISINOPRIL 10 MG TAB PO SCH (17:44)
[2018-12-23 20:56] LABS: Glucose,Whole Blood 324 mg/dL (75-99)
[2018-12-23] MEDS ORDERED: RX INFO: IV CONTRAST WAS GIVEN 1 EACH MISC MISCELLANE PRN (21:06)
--- NOTE | 2018-12-23 23:38 | HP ---
HISTORY AND PHYSICAL DATE OF ADMISSION: 12/23/2018 DATE OF SERVICE: 12/23/2018 PRESENTING COMPLAINT: Short of breath. HISTORY OF PRESENTING COMPLAINT: This is a pleasant 63-year-old patient of Dr. 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 Lama. Chronic stable medical conditions include coronary artery disease, diabetes, hypertension. The patient is on end-stage kidney disease on hemodialysis Sunday, Sunday and Sunday. The patient has been getting short of breath and edema for some time. The patient last week was at [facility] for Sunday, Sunday, . Still remains short of breath and presented here. The patient has not missed any hemodialysis. Today 4 L of fluid removal was ordered, but after 2.8 L, patient started having cramps and dialysis had to be terminated. The patient's is present. Denies any fever, chills, or cough. REVIEW OF SYSTEMS: CONSTITUTIONAL: Tired. HEENT: None. RESPIRATORY: As above. CARDIOVASCULAR: As above. GASTROINTESTINAL: None. GENITOURINARY: None. MUSCULOSKELETAL: Arthritic pain in joints. DERMATOLOGICAL, HEMATOLOGIC, LYMPHATIC: none. PSYCHIATRY none. NEUROLOGICAL: None. PAST MEDICAL HISTORY: Coronary artery disease, congestive heart failure, diabetes mellitus type 2, hyperlipidemia, hypertension, diabetes requiring a insulin pump, peripheral neuropathy, iron deficiency anemia, end-stage kidney disease, left eye ocular palsy, resolved. PAST SURGICAL HISTORY: Coronary bypass, cardiac cath with stent, aortic valve replacement, angioplasty with stents, umbilical hernia repair, cataract bilaterally with lens implant, thyroid surgery. SOCIAL HISTORY: . The patient smoked for 16 years, stopped in 1984, smoked 2 packs a day. Alcohol none. FAMILY HISTORY: Of kidney disease, cancer. HOME MEDICATIONS: 1. Renvela 3200 mg p.o. a.c. t.i.d. 2400 mg p.o. daily p.r.n. 2. Ranexa 1000 mg p.o. daily. 3. Nitrostat 0.4 sublingual q.5 p.r.n. 4. Zestril 10 mg p.o. daily at 5:30. 5. Imdur ER 60 mg p.o. daily. 6. Humalog, pain pump. 7. Lasix 20 mg p.o. daily. 8. Dialyvite 1 tablet p.o. daily. 9. Plavix 75 mg p.o. daily. 10.Coreg 12.5 p.o. b.i.d. 11.Lipitor 40 mg p.o. daily. ALLERGIES: PENICILLIN. PHYSICAL EXAMINATION: VITAL SIGNS: Temperature 97.8. Pulse 77, respiration 20, blood pressure 197/89, pulse ox 99% on room air. Repeat blood pressure 159/74. The patient did require a BiPAP. GENERAL APPEARANCE: Well built, BMI 32.2. Lying in bed, tired-appearing. EYES: Pupils equal. Conjunctivae normal. HEENT: External appearance of nose and ears normal. Oral cavity normal. NECK: JVD unable to assess. Mass not palpable. RESPIRATORY: Effort increased. LUNGS: Diminished breath sounds. CARDIOVASCULAR: 1st and 2nd sounds normal. Minimal edema. ABDOMEN: Soft, nontender. Liver and spleen not palpable. LYMPHATIC: No lymph nodes palpable in the neck and axilla. PSYCHIATRY: Alert and oriented x3. Mood and affect normal. NEUROLOGICAL: Pupils equal. Cranial nerves grossly intact. Power and sensation grossly intact. INVESTIGATIONS: White count 5.2, hemoglobin 10.9, potassium 4.9, BUN 54, creatinine 8.30. ProBNP 33610. EKG tracing personally reviewed by me. Poor R-wave progression in anterior leads. Chest x-ray film personally reviewed by me shows cardiomegaly, venous prominence. ASSESSMENT: 1. Acute pulmonary edema probably from congestive heart failure from underlying ischemic heart disease EF not known. 2. Coronary artery disease, prior history of bypass. 3. Diabetes mellitus type 2, chronically requiring insulin. 4. Essential hypertension. 5. End-stage kidney disease on hemodialysis Sunday, Sunday and Sunday. 6. Primary osteoarthritis. 7. Normocytic anemia secondary to chronic kidney disease. PLAN: The patient was dialyzed today for 2.8 L removed could not to be expected 4 L patient started giving cramping cardiology was also consulted. The patient's last 2D echocardiogram was about 10 months ago and the EF of 55-60 percent. Care was discussed with the patient and , questions were answered. Copy to Dr. Escalera and Dr. Lama. MMODL / IJN: [id number] /
[2018-12-24 06:07] LABS: Glucose,Whole Blood 111 mg/dL (75-99)
[2018-12-24] MEDS: CARVEDILOL 12.5 MG TAB PO SCH ×2 (06:09→17:05)
[2018-12-24] MEDS: SEVELAMER 800 MG TAB PO SCH ×3 (06:09→17:05)
[2018-12-24] MEDS: INSULIN PUMP MEAL BOLUS 1 UNIT MISC MISCELLANE SCH ×4 (06:09→20:57)
[2018-12-24] MEDS: FOLIC ACID-VIT B COMPLEX-VIT C 1 CAP PO SCH (08:44)
[2018-12-24] MEDS: ISOSORBIDE MONONITRATE ER 60 MG TAB.ER.24H PO SCH (08:44)
[2018-12-24] MEDS: FUROSEMIDE 20 MG TAB PO SCH (08:44)
[2018-12-24] MEDS: CLOPIDOGREL 75 MG TAB PO SCH (08:44)
[2018-12-24] MEDS: RANOLAZINE 500 MG TAB.ER.12H PO SCH (08:46)
--- NOTE | 2018-12-24 10:33 | P.CRDCN ---
History of Present Illness Consult date: 12/24/18 Requesting physician: Wilber Griffin Consult reason: congestive heart failure Chief complaint: Shortness of breath History of present illness: This is a 63-year-old gentleman who follows with Dr. Cordero in the office. He has a known history of end-stage renal disease on hemodialysis 3 times a week, diabetes, hypertension, hyperlipidemia, known history of coronary artery disease with prior bypass surgery 2, history of aortic valve replacement, hypothyroidism, who presents to the hospital with symptoms of fluid overload. According to the patient, he follows regularly to his dialysis appointments, however still felt as though he was retaining fluid. He noticed himself to be more short of breath than usual, he does state that he noticed some peripheral edema although not as bad as what he has had at times in the past. Chest x-ray on admission here showed mild cardiomegaly and pulmonary vascular congestion with findings suggesting congestive heart failure and interstitial pulmonary edema. EKG showed normal sinus rhythm with a first- degree AV block and nonspecific ST-T wave changes in the lateral leads. Blood pressure on arrival here 197/89 with a heart rate in the 70s, 99% on room air. Blood pressure this morning 106/56 with a heart rate in the 50s, 100% on room a ir. White blood cell count 5.2, hemoglobin 10.9, platelet count 166. Sodium 142, potassium 4.9, BUN 54 and creatinine 8.3. Glucose on arrival 324, calcium 8.1, AST 96 ALT 64 alk phos 152, BNP level 21,000. Troponin 0.077. Patient did undergo dialysis and ultrafiltration yesterday, he was also given a dose of IV Lasix. This morning patient feels back to his normal self and is quite eager to be discharged home. He had an echocardiogram with Doppler study performed in February 2018 which revealed a normal left ventricular systolic function Past Medical History Past Medical History: Coronary Artery Disease (CAD), Chest Pain / Angina, Heart Failure, Diabetes Mellitus, Eye Disorder, Hyperlipidemia, Hypertension, Myocardial Infarction ([place]), Renal Disease Additional Past Medical History / Comment(s): IDDM type I with insulin pump, neuropathy bilateral legs, ESRD with hemodialysis M,W,F, iron deficiency anemia, past L eye ocular palsy-resolved. Last Myocardial Infarction Date:: 03/04/18 History of Any Multi-Drug Resistant Organisms: None Reported Past Surgical History: Cardiac Valve Replacement, Coronary Bypass/CABG, Heart Catheterization, Heart Catheterization With Stent Additional Past Surgical History / Comment(s): AVF R forearm, Aortic Valve replacement ([place]), PCI with stents, CABG twice-first surgery at [facility] and 2nd surgery at [facility] with post op infection, umbilical hernia repair, colonoscopy, catataract bilaterally with lens implants, thyroid surgery. Past Anesthesia/Blood Transfusion Reactions: No Reported Reaction Additional Past Anesthesia/Blood Transfusion Reaction / Comment(s): Pt has received blood in past without reaction. Date of Last Stent Placement:: 03/04/18 Smoking Status: Former smoker - Past Family History Mother Family Medical History: Cancer, Renal Disease Additional Family Medical History / Comment(s): Mother is . Pt does not recall type of cancer. Father Family Medical History: No Reported History Additional Family Medical History / Comment(s): Pt states father is healthy and is in his mid-late 80s. Medications and Allergies Home Medications Medication Instructions Recorded Confirmed Type Carvedilol [Coreg] 12.5 mg PO BID 03/30/17 12/23/18 History INSULIN LISPRO (For Pump) [humaLOG See Protocol SQ-PUMP CONTINUOUS 03/30/17 12/23/18 History (For Pump)] Lisinopril [Zestril] 10 mg PO DAILY@1730 03/30/17 12/23/18 History Ranolazine [Ranexa] 1,000 mg PO DAILY 03/30/17 12/23/18 History Isosorbide Mononitrate ER [Imdur] 60 mg PO DAILY 04/11/17 12/23/18 History Dialyvite 1 tab PO DAILY 10/09/17 12/23/18 History Atorvastatin [Lipitor] 40 mg PO DAILY@1730 #30 tab 03/06/18 12/23/18 Rx Nitroglycerin Sl Tabs [Nitrostat] 0.4 mg SUBLINGUAL Q5M PRN #25 tab 03/06/18 12/23/18 Rx Sevelamer [Renvela] 3,200 mg PO AC-TID #100 tab 03/06/18 12/23/18 Rx Clopidogrel [Plavix] 75 mg PO DAILY 09/27/18 12/23/18 History Sevelamer [Renvela] 2,400 mg PO DAILY PRN 10/10/18 12/23/18 History Furosemide [Lasix] 20 mg PO DAILY 12/23/18 12/23/18 History Allergies Allergy/AdvReac Type Severity Reaction Status Date / Time Penicillins Allergy Unknown Verified 12/23/18 02:43 Childhood Physical Exam Vitals: Vital Signs Temp Pulse Resp BP Pulse Ox 12/24/18 08:00 97.6 F 54 L 20 105/55 100 12/24/18 04:00 97.4 F L 55 L 20 111/53 99 12/24/18 00:00 98.3 F 59 L 20 96/49 99 12/23/18 20:00 98.3 F 59 L 20 100/49 97 12/23/18 15:34 70 20 118/63 98 12/23/18 12:04 97.6 F 70 18 146/30 12/23/18 12:00 68 20 171/72 100 Intake and Output 12/23/18 12/24/18 12/24/18 22:59 06:59 14:59 Intake Total 840 150 240 Balance 840 150 240 Intake: Oral 840 150 240 Other: # Voids 3 Weight 100 kg PHYSICAL EXAMINATION: GENERAL: 63-year-old gentleman in no acute distress at the time of my examination HEENT: Head is atraumatic, normocephalic. Pupils equal, round. Sclera an icteric. Conjunctiva are clear. Mucous membranes of the mouth are moist. Neck is supple. There is no elevated jugular venous pressure. No carotid bruit is heard. HEART EXAMINATION: Heart S1, S2 systolic murmur is heard . CHEST EXAMINATION: Circumflex clear with mild diminished. The bases ABDOMEN: Soft, nontender. Bowel sounds are heard. No organomegaly noted. EXTREMITIES: 2+ peripheral pulses with trace evidence of peripheral edema and no calf tenderness noted. NEUROLOGIC patient is awake, alert and oriented 3 . . Results - Results Results: EKG shows a normal sinus rhythm with first-degree AV block and nonspecific ST-T wave changes noted in the lateral leads 12/23/18 02:49 12/23/18 02:49 Current Medications Generic Name Dose Route Start Last Admin Trade Name Freq PRN Reason Stop Dose Admin Atorvastatin Calcium 40 mg 12/23/18 17:30 12/23/18 17:44 Lipitor PO 40 mg DAILY@1730 MOMO Administration Carvedilol 12.5 mg 12/23/18 11:45 12/24/18 06:09 Coreg PO 12.5 mg BID-W/MEALS MOMO Administration Clopidogrel Bisulfate 75 mg 12/23/18 11:45 12/24/18 08:44 Plavix PO 75 mg DAILY MOMO Administration Furosemide 20 mg 12/23/18 11:45 12/24/18 08:44 Lasix PO 20 mg DAILY MOMO Administration Insulin Aspart 0 unit 12/23/18 12:49 Novolog SQ DAILY PRN Insulin Pump Replacement Isosorbide Mononitrate 60 mg 12/23/18 11:45 12/24/18 08:44 Imdur PO 60 mg DAILY MOMO Administration Lisinopril 10 mg 12/23/18 17:30 12/23/18 17:44 Zestril PO 10 mg DAILY@1730 [facility] Administration Miscellaneous Information 1 each 12/23/18 12:49 Insulin Pump Active Insulin MISCELLANE ACHS PRN Blood Sugar - High Protocol Miscellaneous Information 1 each 12/23/18 12:49 Insulin Pump Basal Rates MISCELLANE Q6HR PRN Blood Sugar - High Protocol Miscellaneous Information 0 unit 12/23/18 12:49 Insulin Pump Correction Bolus MISCELLANE ACHS PRN Blood Sugar - High Protocol Miscellaneous Information 0 unit 12/23/18 17:30 12/24/18 06:09 Insulin Pump Meal Bolus MISCELLANE Not Given ACHS [facility] Protocol Miscellaneous Information 1 each 12/23/18 12:49 Insulin Pump Target Glucose MISCELLANE ACHS PRN Blood Sugar - High Protocol Miscellaneous Information 1 each 12/23/18 21:06 Rx Info: Iv Contrast Was Given MISCELLANE 12/25/18 21:06 DAILY PRN Per Protocol Multivit/Ca Carb/B Cmplx/FA/Prenat 1 each 12/23/18 11:45 12/24/18 08:44 Nephrocaps PO 1 each DAILY [facility] Administration Naloxone HCl 0.2 mg 12/23/18 04:00 Narcan IV Q2M PRN Opioid Reversal Nitroglycerin 0.4 mg 12/23/18 11:43 Nitrostat SUBLINGUAL Q5M PRN Chest Pain Ranolazine 1,000 mg 12/23/18 11:45 12/24/18 08:46 Ranexa PO 1,000 mg DAILY MOMO Administration Sevelamer Carbonate 2,400 mg 12/23/18 11:43 Renvela PO DAILY PRN before snacks Sevelamer Carbonate 3,200 mg 12/23/18 12:30 12/24/18 06:09 Renvela PO 3,200 mg AC-TID MOMO Administration Intake and Output 12/23/18 12/24/18 12/24/18 22:59 06:59 14:59 Intake Total 840 150 240 Balance 840 150 240 Intake: Oral 840 150 240 Other: # Voids 3 Weight 100 kg 12/23/18 02:49 12/23/18 02:49 EKG Interpretations (text) EKG shows a normal sinus rhythm with first-degree AV block and nonspecific ST-T wave changes noted in the lateral leads Assessment and Plan Plan: Assessment and plan #1 acute hypoxic respiratory failure secondary to volume overload #2 diastolic congestive heart failure acute on chronic #3 known history of coronary artery disease with prior bypass surgery 2. Most recent heart cath was performed in February 2018 at which time patient also underwent successful stenting of the proximal circumflex #4 history of aortic valve replacement with bioprosthetic aortic valve #5 hypertension #6 diabetes #7 hyperlipidemia #8 prior history of smoking Plan Patient did undergo hemodialysis with ultrafiltration yesterday, he also rece ived a dose of IV Lasix. Today is feeling significantly better overall. We will repeat an echocardiogram with Doppler study. Obtain Dr. Cordero's note from the office. Continue Lipitor, Coreg, Plavix, Lasix, Imdur, lisinopril, we will also put the patient on a baby aspirin. Further recommendations to follow. DNP note has been reviewed, I agree with a documented findings and plan of care. Patient was seen and examined.
[2018-12-24 11:28] LABS: Glucose,Whole Blood 236 mg/dL (75-99)
--- NOTE | 2018-12-24 13:18 | P.PN ---
Subjective Patient is seen in follow-up for end-stage renal disease. He is maintained on hemodialysis on a Sunday schedule. Patient presented to the hospital with dyspnea. He underwent hemodialysis yesterday with 2.7 L ultrafiltration. Feels much better today. Currently having lunch. Vital signs are stable. General: The patient appeared well nourished and normally developed. HEENT: Head exam is unremarkable. Neck is without jugular venous distension. LUNGS: Lungs are clear to auscultation and percussion. Breath sounds decreased. HEART: Rate and Rhythm are regular. First and second heart sounds normal. No murmurs, rubs or gallops. ABDOMEN: Abdominal exam reveals normal bowel sounds. Non-tender and non- distended. No evidence of peritonitis. EXTREMITITES: No clubbing, cyanosis, or edema. Objective - Vital Signs Vital signs: Vital Signs Temp 97.8 F 12/24/18 11:28 Pulse 52 L 12/24/18 11:28 Resp 20 12/24/18 11:28 BP 112/52 12/24/18 11:28 Pulse Ox 99 12/24/18 11:28 Intake & Output 12/23/18 12/24/18 12/24/18 18:59 06:59 18:59 Intake Total 360 750 240 Output Total 2900 Balance -2540 750 240 Weight 100 kg Intake: Oral 360 750 240 Output: Urine 100 Hemodialysis 2800 Other: # Voids 0 3 - Labs CBC & Chem 7: 12/23/18 02:49 12/23/18 02:49 Labs: Abnormal Lab Results - Last 24 Hours (Table) 12/23/18 12/23/18 12/24/18 Range/Units 16:36 20:54 06:05 POC Glucose (mg/dL) 300 H 324 H 111 H (75-99) mg/dL 12/24/18 Range/Units 11:24 POC Glucose (mg/dL) 236 H (75-99) mg/dL Assessment and Plan Plan: Assessment: 1. End-stage renal disease maintained on hemodialysis on a Sunday schedule. 2. Acute hypoxic respiratory failure secondary to volume overload. 3. History of coronary artery disease status post CABG and cardiac stents placement. 4. Chronic kidney disease mineral bone disease maintained on Renvela. Patient is status post parathyroidectomy. 5. Hypertension with chronic kidney disease. Controlled. Plan: Hemodialysis tomorrow. Patient also has a CTA ordered - cleared from nephrology standpoint to proceed. No need for IV fluids. Follow-up echocardiogram.
--- NOTE | 2018-12-24 14:34 | CT ---
EXAMINATION TYPE: CT angio chest DATE OF EXAM: 12/24/2018 2:25 PM COMPARISON: None HISTORY: chest pain CT DLP: 398.7 mGycm Automated exposure control for dose reduction was used. CONTRAST: CTA scan of the thorax is performed with IV Contrast, patient injected with 80 mL of Isovue 370, pulm onary embolism protocol. . FINDINGS: LUNGS: There are emphysematous changes. Pleural thickening noted. No pneumothorax. A nodular density measuring 7 mm anterior segment left upper lobe likely inflammatory. Small bilateral pleural effusion s are seen and there is basilar consolidation likely on the basis of compressive atelectasis. MEDIASTINUM: The heart is enlarged and there is coronary artery calcification. Atherosclerotic change s of the aorta. No evidence of aneurysm. Some limitation of the distal branches due to suboptimal opa cification the remaining pulmonary arteries enhance normally. OTHER: Findings of gynecomastia noted. Hypertrophic and degenerative changes spine. Corticated lucen t lesion involving the sternum appears chronic be correlated clinically. This may be related to previ ous surgery. IMPRESSION: 1. COPD with bilateral lower lobe atelectasis and pleural effusion. Vague nodular density left upper lobe likely inflammatory and follow-up to resolution suggested. 2. No diagnostic evidence of central pulmonary embolism. Very distal branches are limited in assessme nt. 3. There is a sternal deformity with dehiscence of the sternum correlate for previous surgery otherwi se consider infectious etiology
[2018-12-24 16:55] LABS: Glucose,Whole Blood 153 mg/dL (75-99)
[2018-12-24] MEDS: ATORVASTATIN 40 MG TAB PO SCH (17:05)
[2018-12-24] MEDS: LISINOPRIL 10 MG TAB PO SCH (17:05)
[2018-12-24 20:48] LABS: Glucose,Whole Blood 130 mg/dL (75-99)
--- NOTE | 2018-12-25 05:57 | PN ---
PROGRESS NOTE DATE OF SERVICE: 12/24/2018 PRESENTING COMPLAINT: Short of breath. INTERVAL HISTORY: Patient presented with acute pulmonary edema from congestive heart failure and patient had underwent some ultrafiltration. Breathing is somewhat better, though not back. Did get a CT scan and a PE was ruled out. The patient does feel a bit tired. REVIEW OF SYSTEMS: Done for constitutional, cardiovascular, GI, pulmonary; relevant findings as above. CURRENT MEDICATIONS: Current medications are reviewed. PHYSICAL EXAMINATION: On examination, temperature 97.8 pulse 56, respiration 20, blood pressure 128/60, pulse ox 100% on room air. GENERAL APPEARANCE: Sitting up, awake. EYES: Pupils equal. Conjunctivae normal. NECK: JVD not raised. Mass not palpable. RESPIRATORY: Effort increased. LUNGS: Decreased breath sounds. CARDIOVASCULAR: First and second sounds normal. No edema. ABDOMEN: Soft, nontender. Liver and spleen not palpable. PSYCHIATRY: Alert and oriented x3. Mood and affect normal. INVESTIGATIONS: Accu-Cheks are noted. ASSESSMENT: 1. Acute pulmonary edema probably from congestive heart failure exacerbation from underlying ischemic heart disease, ejection fraction not known. 2. Coronary artery disease, prior history of bypass. 3. Diabetes mellitus type 2, chronically requiring insulin. 4. Essential hypertension. 5. End-stage kidney disease on hemodialysis Sunday, Sunday and Sunday. 6. Primary osteoarthritis. 7. Normocytic anemia secondary to chronic kidney disease. PLAN: A 2-D echocardiogram is pending. Hopefully patient can get dialyzed tomorrow and can go home. Care was discussed with the patient. MMODL / IJN: [id number] /
[2018-12-25 06:43] LABS: Glucose,Whole Blood 170 mg/dL (75-99)
[2018-12-25] MEDS: INSULIN PUMP MEAL BOLUS 1 UNIT MISC MISCELLANE SCH ×2 (06:51→11:50)
[2018-12-25] MEDS: SEVELAMER 800 MG TAB PO SCH ×3 (06:51→17:07)
[2018-12-25] MEDS: CARVEDILOL 12.5 MG TAB PO SCH ×2 (06:51→17:07)
[2018-12-25 08:07] VITALS: TEMP 97.6
[2018-12-25] MEDS: RANOLAZINE 500 MG TAB.ER.12H PO SCH (08:11)
[2018-12-25] MEDS: FOLIC ACID-VIT B COMPLEX-VIT C 1 CAP PO SCH (08:11)
[2018-12-25] MEDS: CLOPIDOGREL 75 MG TAB PO SCH (08:11)
[2018-12-25] MEDS: FUROSEMIDE 20 MG TAB PO SCH (08:11)
[2018-12-25] MEDS ORDERED: ASPIRIN 81 MG PO SCH (09:00)
[2018-12-25 11:07] VITALS: RESP 16
[2018-12-25 12:06] LABS: Glucose,Whole Blood 145 mg/dL (75-99)
--- NOTE | 2018-12-25 12:37 | P.PN ---
Subjective Patient is seen in follow-up for end-stage renal disease. He is maintained on hemodialysis on a Sunday schedule. Patient presented to the hospital with dyspnea. Feels much better today. Currently seen while undergoing hemodialysis. No chest pain or shortness of breath. Vital signs are stable. General: The patient appeared well nourished and normally developed. HEENT: Head exam is unremarkable. Neck is without jugular venous distension. LUNGS: Lungs are clear to auscultation and percussion. Breath sounds decreased. HEART: Rate and Rhythm are regular. First and second heart sounds normal. No murmurs, rubs or gallops. ABDOMEN: Abdominal exam reveals normal bowel sounds. Non-tender and non- distended. No evidence of peritonitis. EXTREMITITES: No clubbing, cyanosis, or edema. Objective - Vital Signs Vital signs: Vital Signs Temp 97.6 F 12/25/18 08:00 Pulse 55 L 12/25/18 11:08 Resp 16 12/25/18 11:03 BP 132/69 12/25/18 11:03 Pulse Ox 100 12/25/18 11:03 Intake & Output 12/24/18 12/25/18 12/25/18 18:59 06:59 18:59 Intake Total 942 200 230 Output Total 100 Balance 842 200 230 Weight 102.058 kg Intake: Oral 942 200 230 Output: Urine 100 Other: # Voids 1 - Labs CBC & Chem 7: 12/23/18 02:49 12/23/18 02:49 Labs: Abnormal Lab Results - Last 24 Hours (Table) 12/24/18 12/24/18 12/25/18 Range/Units 16:53 20:46 06:41 POC Glucose (mg/dL) 153 H 130 H 170 H (75-99) mg/dL 12/25/18 Range/Units 11:40 POC Glucose (mg/dL) 145 H (75-99) mg/dL Assessment and Plan Plan: Assessment: 1. End-stage renal disease maintained on hemodialysis on a Sunday schedule. 2. Acute hypoxic respiratory failure secondary to volume overload. 3. History of coronary artery disease status post CABG and cardiac stents placement. 4. Chronic kidney disease mineral bone disease maintained on Renvela. Patient is status post parathyroidectomy. 5. Hypertension with chronic kidney disease. Controlled. Plan: Currently seen while undergoing hemodialysis. Stable to be discharged home from nephrology standpoint.
[2018-12-25] MEDS: ISOSORBIDE MONONITRATE ER 60 MG TAB.ER.24H PO SCH (13:30)
[2018-12-25 15:43] VITALS: BP 119/58; PULSE 53
--- NOTE | 2018-12-25 16:13 | P.PN ---
Subjective Progress Note Date: 12/25/18 This is a 63-year-old gentleman who follows with Dr. Cordero in the office. He has a known history of end-stage renal disease on hemodialysis 3 times a week, diabetes, hypertension, hyperlipidemia, known history of coronary artery disease with prior bypass surgery 2, history of aortic valve rep lacement, hypothyroidism, who presents to the hospital with symptoms of fluid overload. According to the patient, he follows regularly to his dialysis appointments, however still felt as though he was retaining fluid. He noticed himself to be more short of breath than usual, he does state that he noticed some peripheral edema although not as bad as what he has had at times in the past. Chest x-ray on admission here showed mild cardiomegaly and pulmonary vascular congestion with findings suggesting congestive heart failure and interstitial pulmonary edema. EKG showed normal sinus rhythm with a first- degree AV block and nonspecific ST-T wave changes in the lateral leads. Blood pressure on arrival here 197/89 with a heart rate in the 70s, 99% on room air. Blood pressure this morning 106/56 with a heart rate in the 50s, 100% on room air. White blood cell count 5.2, hemoglobin 10.9, platelet count 166. Sodium 142, potassium 4.9, BUN 54 and creatinine 8.3. Glucose on arrival 324, calcium 8.1, AST 96 ALT 64 alk phos 152, BNP level 21,000. Troponin 0.077. Patient did undergo dialysis and ultrafiltration yesterday, he was also given a dose of IV Lasix. This morning patient feels back to his normal self and is quite eager to be discharged home. He had an echocardiogram with Doppler study performed in February 2018 which revealed a normal left ventricular systolic function. 12/25/2018 Patient was seen and examined today, undergoing dialysis at present. Denies any chest pain, breathing is stable. Hemodynamically stable. Objective - Vital Signs Vital signs: Vital Signs Temp 97.6 F 12/25/18 08:00 Pulse 53 L 12/25/18 15:42 Resp 16 12/25/18 15:42 BP 119/58 12/25/18 15:42 Pulse Ox 100 12/25/18 15:42 Intake & Output 12/24/18 12/25/18 12/25/18 18:59 06:59 18:59 Intake Total 942 200 460 Output Total 100 Balance 842 200 460 Weight 102.058 kg Intake: Oral 942 200 460 Output: Urine 100 Other: # Voids 1 2 - Exam PHYSICAL EXAMINATION: GENERAL: 63-year-old gentleman in no acute distress at the time of my examination HEENT: Head is atraumatic, normocephalic. Pupils equal, round. Sclera anicteric. Conjunctiva are clear. Mucous membranes of the mouth are moist. Neck is supple. There is no elevated jugular venous pressure. No carotid bruit is heard. HEART EXAMINATION: Heart S1, S2 systolic murmur is heard . CHEST EXAMINATION: Circumflex clear with mild diminished. The bases ABDOMEN: Soft, nontender. Bowel sounds are heard. No organomegaly noted. EXTREMITIES: 2+ peripheral pulses with trace evidence of peripheral edema and no calf tenderness noted. NEUROLOGIC patient is awake, alert and oriented 3 . . - Labs CBC & Chem 7: 12/23/18 02:49 12/23/18 02:49 Labs: Abnormal Lab Results - Last 24 Hours (Table) 12/24/18 12/24/18 12/25/18 Range/Units 16:53 20:46 06:41 POC Glucose (mg/dL) 153 H 130 H 170 H (75-99) mg/dL 12/25/18 Range/Units 11:40 POC Glucose (mg/dL) 145 H (75-99) mg/dL Assessment and Plan Plan: Assessment and plan #1 acute hypoxic respiratory failure secondary to volume overload #2 diastolic congestive heart failure acute on chronic #3 known history of coronary artery disease with prior bypass surgery 2. Most recent heart cath was performed in February 2018 at which time patient also underwent successful stenting of the proximal circumflex #4 history of aortic valve replacement with bioprosthetic aortic valve #5 hypertension #6 diabetes #7 hyperlipidemia #8 prior history of smoking Plan From cardiology's perspective, patient may be able to be discharged home today, we'll make a follow-up appointment for the patient to see Dr. Cordero in the office post discharge. DNP note has been reviewed, I agree with a documented findings and plan of care. Patient was seen and examined.
[2018-12-25] MEDS: ATORVASTATIN 40 MG TAB PO SCH (17:07)
[2018-12-25] MEDS: LISINOPRIL 10 MG TAB PO SCH (17:07)
--- NOTE | 2018-12-26 10:53 | DS ---
DISCHARGE SUMMARY DATE OF ADMISSION: 12/23/2018 DATE OF DISCHARGE: 12/25/2018 FINAL DIAGNOSES: 1. Acute pulmonary edema from acute on chronic congestive heart failure exacerbation from diastolic dysfunction. Ejection fraction 55-60 percent from underlying ischemic heart disease. 2. Coronary artery disease with prior history of coronary artery bypass. 3. Diabetes mellitus type 2, chronically requiring insulin. 4. Essential hypertension. 5. End-stage kidney disease on hemodialysis Sunday, Sunday and Sunday. 6. Primary osteoarthritis. 7. Normocytic anemia secondary to chronic kidney disease. 8. Bioprosthetic aortic valve. HOSPITAL COURSE: This patient with pulmonary edema from above, did undergo dialysis, responded to that well. Chest CT was negative for PE. Patient was doing well by the time of discharge. Keen to go home. No further symptoms. PHYSICAL EXAMINATION: Temperature 97.6, pulse 53, respiratory rate 16, blood pressure 109/58, pulse ox 100 percent on room air. Lungs are clear. Cardiovascular: First and second sounds normal. CONSULTATION: Dr. Lama from Nephrology, Dr. Cordero from Cardiology. DISCHARGE MEDICATIONS: 1. Coreg 12.5 p.o. b.i.d. 2. Humalog insulin pump. 3. Zestril 10 mg a day. 4. Ranexa 1000 mg p.o. daily. 5. Imdur ER 60 mg p.o. daily. 6. Dialyvite 1 tablet p.o. daily. 7. Lipitor 40 mg p.o. daily. 8. Nitrostat 0.4 sublingual q.5 p.r.n. 9. Renvela 3200 mg p.o. a.c. t.i.d. 10.Plavix 75 mg p.o. daily. 11.Renvela 2500 mg p.o. daily p.r.n. 12.Lasix 20 mg p.o. daily. 13.Aspirin 81 mg p.o. daily. FOLLOW UP: Dr. Cordero on January 14, 2019, Dr. Travis Escalera in 1 week, Dr. Patience Parker, Dr. Liu Lama with dialysis, keep a dialysis schedule. Copy to Dr. Travis Escalera. MMODL / IJN: [id number] /
== END 2018-12-25 17:58 | disposition home or self-care (01) | DRG 291 ==
LOC: EC 02:36 → 3SCARD 04:02
PROVIDERS: ADMIT Hospitalist; ATTEND Hospitalist
PROC: 5A1D70Z Performance of Urinary Filtration, Intermittent, Less than 6 Hours Per Day (ICD-10-PCS; principal; 2018-12-23)
PROC: 5A09357 Assistance with Respiratory Ventilation, Less than 24 Consecutive Hours, Continuous Positive Airway Pressure (ICD-10-PCS; principal; 2018-12-23)
DX: I13.2 Hypertensive heart and chronic kidney disease with heart failure and with stage 5 chronic kidney disease, or end stage renal disease (principal); I50.33 Acute on chronic diastolic (congestive) heart failure; J96.01 Acute respiratory failure with hypoxia; N18.6 End stage renal disease; D63.1 Anemia in chronic kidney disease; E03.9 Hypothyroidism, unspecified; E11.22 Type 2 diabetes mellitus with diabetic chronic kidney disease; E11.42 Type 2 diabetes mellitus with diabetic polyneuropathy; E78.5 Hyperlipidemia, unspecified; I25.10 Atherosclerotic heart disease of native coronary artery without angina pectoris; I25.2 Old myocardial infarction; I44.0 Atrioventricular block, first degree; M19.91 Primary osteoarthritis, unspecified site; E89.2 Postprocedural hypoparathyroidism; E83.89 Other disorders of mineral metabolism; Z79.02 Long term (current) use of antithrombotics/antiplatelets; Z79.4 Long term (current) use of insulin; Z79.899 Other long term (current) drug therapy; Z96.41 Presence of insulin pump (external) (internal); Z99.2 Dependence on renal dialysis; Z95.5 Presence of coronary angioplasty implant and graft; Z95.1 Presence of aortocoronary bypass graft; Z88.0 Allergy status to penicillin; Z95.3 Presence of xenogenic heart valve; Z87.891 Personal history of nicotine dependence; Z98.42 Cataract extraction status, left eye; Z98.41 Cataract extraction status, right eye; Z96.1 Presence of intraocular lens; Z84.1 Family history of disorders of kidney and ureter
CPT/HCPCS: 36415; 71046; 71275; 80053; 83880; 84484; 85025; 85610; 85730; 90935; 93005; 93306; 94660; 96374; 99285

== ENCOUNTER 2019-02-27 02:47 | Inpatient (IN) | payer MEDICARE, BC ==
--- NOTE | 2019-02-27 03:07 | ED ---
Chest Pain HPI - General Chief Complaint: Chest Pain Stated Complaint: Chest pain,heart patient Time Seen by Provider: 02/27/19 03:06 Source: patient Limitations: no limitations - History of Present Illness Initial Comments: Master is a 64-year-old gentleman with extensive past medical history most significant for type 1 diabetes, end-stage renal disease on dialysis Sunday, known coronary artery disease status post CABG. Patient reports that this week there was a problem with his dialysis center and he was unable to get dialysis on Sunday. Patient was able to attend dialysis on Sunday and reports that they took off 4 L of fluid. He states he is feeling well after dialysis. He went to bed in the evening feeling well but woke at approximately 2 AM with left-sided sharp chest pain. Chest pain is not exertional, not relieved by rest, was not relieved by 2 nitro he took at home, is not associated with diaphoresis, lightheadedness or shortness of breath. Pain is worse with palpation. MD Complaint: chest pain -: hour(s) - Related Data Home Medications Medication Instructions Recorded Confirmed Carvedilol [Coreg] 12.5 mg PO BID 03/30/17 12/23/18 INSULIN LISPRO (For Pump) [humaLOG See Protocol SQ-PUMP CONTINUOUS 03/30/17 12/23/18 (For Pump)] Lisinopril [Zestril] 10 mg PO DAILY@1730 03/30/17 12/23/18 Ranolazine [Ranexa] 1,000 mg PO DAILY 03/30/17 12/23/18 Isosorbide Mononitrate ER [Imdur] 60 mg PO DAILY 04/11/17 12/23/18 Dialyvite 1 tab PO DAILY 10/09/17 12/23/18 Clopidogrel [Plavix] 75 mg PO DAILY 09/27/18 12/23/18 Sevelamer [Renvela] 2,400 mg PO DAILY PRN 10/10/18 12/23/18 Furosemide [Lasix] 20 mg PO DAILY 12/23/18 12/23/18 Previous Rx's Medication Instructions Recorded Atorvastatin [Lipitor] 40 mg PO DAILY@1730 #30 tab 03/06/18 Nitroglycerin Sl Tabs [Nitrostat] 0.4 mg SUBLINGUAL Q5M PRN #25 tab 03/06/18 Sevelamer [Renvela] 3,200 mg PO AC-TID #100 tab 03/06/18 Aspirin 81 mg PO DAILY chew 12/25/18 Allergies Allergy/AdvReac Type Severity Reaction Status Date / Time Penicillins Allergy Unknown Verified 12/23/18 02:43 Childhood Review of Systems ROS Statement: Those systems with pertinent positive or pertinent negative responses have been documented in the HPI. ROS Other: All systems not noted in ROS Statement are negative. EKG Findings - EKG Comments: EKG Findings:: EKG was obtained due to complaint of chest pain, EKG was obtained at 3:01 AM, rate is 70 rhythm is sinus, there is a leftward axis, CA is prolonged at 246, QRS is 98, QTC is prolonged at 457, there is no obvious ST elevations or depressions however there is noted T-wave inversions in aVL. No evidence of acute infarction. Past Medical History Past Medical History: Coronary Artery Disease (CAD), Chest Pain / Angina, Heart Failure, Diabetes Mellitus, Eye Disorder, Hyperlipidemia, Hypertension, Myocardial Infarction ([place]), Renal Disease Additional Past Medical History / Comment(s): IDDM type I with insulin pump, neuropathy bilateral legs, ESRD with hemodialysis M,W,F, iron deficiency anemia, past L eye ocular palsy-resolved. Last Myocardial Infarction Date:: 03/04/18 History of Any Multi-Drug Resistant Organisms: None Reported Past Surgical History: Cardiac Valve Replacement, Coronary Bypass/CABG, Heart Catheterization, Heart Catheterization With Stent Additional Past Surgical History / Comment(s): AVF R forearm, Aortic Valve replacement (Sw[place]), PCI with stents, CABG twice-first surgery at [facility] and 2nd surgery at [place] with post op infection, umbilical hernia repair, colonoscopy, catataract bilaterally with lens implants, thyroid surgery. Past Anesthesia/Blood Transfusion Reactions: No Reported Reaction Additional Past Anesthesia/Blood Transfusion Reaction / Comment(s): Pt has received blood in past without reaction. Date of Last Stent Placement:: 03/04/18 Past Psychological History: No Psychological Hx Reported Smoking Status: Former smoker - Past Family History Mother Family Medical History: Cancer, Renal Disease Additional Family Medical History / Comment(s): Mother is . Pt does not recall type of cancer. Father Family Medical History: No Reported History Additional Family Medical History / Comment(s): Pt states father is healthy and is in his mid-late 80s. General Exam - General Exam Comments Initial Comments: Physical Exam GENERAL: Chronically ill-appearing HENT: Normocephalic, Atraumatic. EYES: PERRL, EOMI PULMONARY: Unlabored respirations. No audible rales rhonchi or wheezing was noted. CARDIOVASCULAR: There is a regular rate and rhythm without any murmurs gallops or rubs. Tenderness to palpation of the left chest wall AV fistula and right upper extremity ABDOMEN: Soft and nontender with normal bowel sounds. SKIN: Skin is clear with no lesions or rashes and otherwise unremarkable. : Deferred NEUROLOGIC: Patient is alert and oriented x3. Moving all extremities spontaneously MUSCULOSKELETAL: Normal extremities with adequate strength and full range of motion. No lower extremity swelling or edema. No calf tenderness. PSYCHIATRIC: Normal psychiatric evaluation Limitations: no limitations Course Vital Signs 02/27/19 02/27/19 02/27/19 02:50 04:34 06:00 Temperature 97.5 F L 98.1 F Pulse Rate 70 65 59 L Respiratory 16 18 18 Rate Blood Pressure 169/80 142/69 139/66 O2 Sat by Pulse 100 98 99 Oximetry Chest Pain MDM - MDM The patient was seen and evaluated, history is obtained from the patient and review of medical record Cardiac workup was initiated Patient had no improvement chest pain after 2 nitro at home, morphine was ordered for pain Chest pain workup was initiated EKG with no acute ischemic changes labs with multiple abnormalities most are secondary to his chronic kidney disease, patient was noted to be hyperglycemic however he has his insulin pump and did receive 7 units of insulin, repeat glucose had improved to 214 Troponin is elevated 0.11, patient usually has a mildly elevated troponin this is only slightly above his usual Patient reports morphine helped his pain somewhat At this time I will plan to admit the patient for further evaluation. Patient care was discussed with Dr. Wall of the [facility] physician team who accepts the admission. Disposition Clinical Impression: Chest pain Disposition: ADMITTED IP TO THIS HOSP Condition: Stable Is patient prescribed a controlled substance at d/c from ED?: No Referrals: Travis Escalera MD [Primary Care Provider] - 1-2 days
[2019-02-27 03:22] LABS: Basophils % (A) 0 %; Eosinophils # (A) 0.1 k/uL (0-0.7); Eosinophils % (A) 2 %; HCT 38.2 % (39.0-53.0); HGB 12.4 gm/dL (13.0-17.5); Hypochromasia Slight; Lymphocytes # (A) 0.8 k/uL (1.0-4.8); Lymphocytes % (A) 15 %; MCHC 32.4 g/dL (31.0-37.0); MCV 92.8 fL (80.0-100.0); Monocytes # (A) 0.3 k/uL (0-1.0); Monocytes % (A) 5 %; Neutrophils # (A) 3.8 k/uL (1.3-7.7); Neutrophils % (A) 76 %; Platelet Count 134 k/uL (150-450); Poikilocytosis Slight; RBC 4.12 m/uL (4.30-5.90); RDW 15.2 % (11.5-15.5)
[2019-02-27 03:35] LABS: Calcium 8.2 mg/dL (8.4-10.2); Magnesium 2.6 mg/dL (1.6-2.3); Partial Thromboplastin Time 24.7 sec (22.0-30.0); Potassium 5.5 mmol/L (3.5-5.1); Prothrombin Time 10.5 sec (9.0-12.0); Total Bilirubin 0.8 mg/dL (0.2-1.3); Total Protein 6.6 g/dL (6.3-8.2)
--- NOTE | 2019-02-27 03:54 | XR ---
EXAM: XR Chest, 2 Views CLINICAL HISTORY: ITS.REASON XR Reason: Chest Pain TECHNIQUE: Frontal and lateral views of the chest. COMPARISON: No relevant prior studies available. FINDINGS: Lungs: Unremarkable. No consolidation. Pleural space: Unremarkable. No pneumothorax. Heart: Unremarkable. No cardiomegaly. Mediastinum: Unremarkable. Bones/joints: Unremarkable. IMPRESSION: Normal chest x-rays.
[2019-02-27] MEDS ORDERED: MORPHINE SULFATE 4 MG/ML SYRINGE IVP STA ×2 (04:19→06:09)
[2019-02-27 04:35] VITALS: RESP 18
[2019-02-27] MEDS ORDERED: FUROSEMIDE 10 MG/ML 4 ML VIAL IV STA (06:09)
[2019-02-27 06:30] LABS: Glucose,Whole Blood 214 mg/dL (75-99)
[2019-02-27] MEDS ORDERED: HEPARIN SODIUM,PORCINE 5,000 UNIT/ML 1 ML VIAL IV ONE (06:50)
[2019-02-27] MEDS ORDERED: NITROGLYCERIN SL TABS 0.4 MG TAB SUBLINGUAL PRN (06:50)
[2019-02-27] MEDS ORDERED: MORPHINE SULFATE 4 MG/ML SYRINGE IV PRN (06:50)
[2019-02-27] MEDS ORDERED: HEPARIN SOD,PORK IN 0.45% NACL 25,000 UNIT in 0.45% NACL 1 250ML.BAG IV SCH (07:00)
[2019-02-27] MEDS ORDERED: INSULIN ASPART (NovoLOG) 100 UNIT/ML VIAL SQ SCH (07:30)
[2019-02-27 10:22] LABS: Glucose,Whole Blood 52 mg/dL (75-99)
--- NOTE | 2019-02-27 10:34 | CONS ---
CONSULTATION CHIEF COMPLAINT: Chest pain. Master is a 64-year-old gentleman with history of coronary artery disease, status post CABG, status post aortic valve replacement, status post recent angioplasty of algaaciq circumflex coronary artery, who presents to hospital with chest pain. Patient has end- stage renal disease and is currently on hemodialysis. Because of our issues, patient missed his dialysis on Sunday, ended up having dialysis on Sunday and he felt well after the dialysis, but went to bed and woke up around 2 o'clock in the morning with sharp chest pain. He took two sublingual nitroglycerin that did not make any difference. There was no diaphoresis, shortness of breath, dizziness. The pain gets worse with touch. At the time of my evaluation, patient appears comfortable at rest and is free of significant symptoms. His troponin is mildly elevated, probably secondary to underlying renal failure. EKG shows sinus rhythm, poor R-wave progression and left axis deviation. A chest x-ray was normal. PAST MEDICAL HISTORY: Significant for end-stage renal disease on hemodialysis, hypertension, insulin- requiring diabetes, coronary artery disease status post CABG, status post aortic valve replacement. Patient had cardiac catheterization, angioplasty of proximal circumflex coronary artery last year. He apparently had a negative stress test recently. I am going to review the results. MEDICATIONS: At home include Ranexa, Zestril, Imdur, Lasix, Plavix, Coreg, Lipitor, and aspirin. The patient is allergic to PENICILLIN. FAMILY HISTORY: Negative for premature coronary artery disease. SOCIAL HISTORY: Negative for current smoking, EtOH abuse, or drug abuse. REVIEW OF SYSTEMS: HEENT: Unremarkable. CARDIAC: As described above. RESPIRATORY: As described above. GI: Negative. GENITOURINARY: Significant for end-stage renal disease on hemodialysis. PSYCHOSOCIAL: Negative. ENDOCRINE: Negative. DERM: Negative. CONSTITUTIONAL: Negative. ONCOLOGICAL: Negative. BULL GANG WORKER: Negative. PHYSICAL EXAM: Patient is comfortable at rest. Heart rate is 58 beats and blood pressure is 133/60, respiratory rate is 18. Chest exam reveals good air entry bilaterally. Heart exam reveals first and second heart sounds. Ejection systolic murmur in the aortic area. Abdomen is soft. Exam of extremities did not reveal any edema. Peripheral pulses are palpable. LABS: Show a hemoglobin of 12.4, platelet count is 130, potassium is 5.5, creatinine is 6.5. Troponin is 0.1. BNP is elevated at 24,000. ASSESSMENT: 1. Precordial chest pain. 2. Coronary artery disease, status post coronary artery bypass grafting. 3. Status post aortic valve replacement. 4. End-stage renal disease on hemodialysis. PLAN: Patient's chest discomfort is sharp, atypical, probably musculoskeletal. Patient had recent negative stress test. I am going to review the results. No further cardiac workup at this time. Will follow two more troponins. We can stop the IV heparin if the next troponin does not go up significantly. Patient had an echo done in December of this year that showed normal LV systolic function with a peak gradient across the aortic valve of 50 mm and a mean gradient of 28 mm with an enlarged right ventricle and mild pulmonary hypertension. He had a cardiac catheterization in February 20. I reviewed the angiographic data. [place] / RISSA: [id number] /
[2019-02-27 10:49] LABS: Glucose,Whole Blood 41 mg/dL (75-99)
[2019-02-27] MEDS ORDERED: INSULIN ASPART (NovoLOG) 100 UNIT/ML VIAL SQ PRN (11:08)
[2019-02-27] MEDS ORDERED: INSPUCOR MISCELLANE PRN (11:08)
[2019-02-27] MEDS ORDERED: INSULIN PUMP TARGET GLUCOSE 1 EACH MISC MISCELLANE PRN (11:08)
[2019-02-27] MEDS ORDERED: INSULIN PUMP ACTIVE INSULIN 1 EACH MISC MISCELLANE PRN (11:08)
[2019-02-27] MEDS ORDERED: INSULIN PUMP BASAL RATES 1 EACH MISC MISCELLANE PRN (11:08)
[2019-02-27 11:26] LABS: Glucose,Whole Blood 76 mg/dL (75-99)
[2019-02-27] MEDS ORDERED: INSULIN PUMP MEAL BOLUS 1 UNIT MISC MISCELLANE SCH (12:30)
[2019-02-27 15:18] VITALS: BP 157/69; PULSE 71; TEMP 98.3
--- NOTE | 2019-02-27 15:47 | P.HPIM ---
History of Present Illness H&P Date: 02/27/19 Chief Complaint: Chest pain The patient is a 64-year-old male the past focal history of coronary artery disease and history of CABG in 2000, history of aortic valve replacement, essential hypertension, type 2 diabetes and end-stage renal disease on hemodialysis Sunday who presents to the ER via private vehicle with chief complaint of chest pain, patient reports the symptoms are substernal sharp without any radiation associated with shortness of breath the patient reports symptoms at rest in the actually woke him up from sleep this morning. T he patient took sublingual nitroglycerin with no significant improvement, he denies any diaphoresis shortness of air or dizziness. Symptoms are worsened by movement and touch and I reproducible. 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 The patient reports missing his last hemodialysis on Sunday but did have hemodialysis on Sunday. In the ER the patient had a comprehensive workup EKG showed sinus mechanism with poor R wave projection and a left axis deviation, Troponin was elevated at 0.11 and subsequently trended up to 0.114, chest x-ray was normal The patient was started on heparin drip and aspirin and recommended for admission to rule out ACS. Review of Systems Pertinent positives per HPI all other review of systems was negative Past Medical History Past Medical History: Coronary Artery Disease (CAD), Chest Pain / Angina, Heart Failure, Diabetes Mellitus, Eye Disorder, Hyperlipidemia, Hypertension, Myocardial Infarction ([place]), Osteoarthritis ([place]), Renal Disease Additional Past Medical History / Comment(s): IDDM type I with insulin pump, neuropathy bilateral legs, ESRD with hemodialysis M,W,F, normocytic anemia, pulmonary edema, ischemic heart disease, arthritis bilateral hands, past L eye ocular palsy-resolved. Last Myocardial Infarction Date:: 03/04/18 History of Any Multi-Drug Resistant Organisms: None Reported Past Surgical History: Cardiac Valve Replacement, Coronary Bypass/CABG, Heart Catheterization, Heart Catheterization With Stent Additional Past Surgical History / Comment(s): AVF R forearm, 2015 aortic Valve replacement (swine), PCI with stents, CABG twice-first surgery in 2000 at [facility] and 2nd surgery around 2012 at [place] with post op infection with surgery, umbilical hernia repair, colonoscopy, catataract bilaterally with lens implants, thyroid surgery. Past Anesthesia/Blood Transfusion Reactions: No Reported Reaction Additional Past Anesthesia/Blood Transfusion Reaction / Comment(s): Pt has received blood in past without reaction. Date of Last Stent Placement:: 03/04/18 Smoking Status: Former smoker - Past Family History Mother Family Medical History: Cancer, Renal Disease Additional Family Medical History / Comment(s): Mother is . Pt does not recall type of cancer. Father Family Medical History: No Reported History Additional Family Medical History / Comment(s): Pt states father is healthy and is in his mid-late 80s. Medications and Allergies Home Medications Medication Instructions Recorded Confirmed Type Carvedilol [Coreg] 12.5 mg PO BID 03/30/17 02/27/19 History INSULIN LISPRO (For Pump) [humaLOG See Protocol SQ-PUMP CONTINUOUS 03/30/17 02/27/19 History (For Pump)] Lisinopril [Zestril] 10 mg PO DAILY@1730 03/30/17 02/27/19 History Ranolazine [Ranexa] 1,000 mg PO DAILY 03/30/17 02/27/19 History Isosorbide Mononitrate ER [Imdur] 60 mg PO DAILY 04/11/17 02/27/19 History Dialyvite 1 tab PO DAILY 10/09/17 02/27/19 History Atorvastatin [Lipitor] 40 mg PO DAILY@1730 #30 tab 03/06/18 02/27/19 Rx Nitroglycerin Sl Tabs [Nitrostat] 0.4 mg SUBLINGUAL Q5M PRN #25 tab 03/06/18 02/27/19 Rx Sevelamer [Renvela] 3,200 mg PO AC-TID #100 tab 03/06/18 02/27/19 Rx Clopidogrel [Plavix] 75 mg PO DAILY 09/27/18 02/27/19 History Sevelamer [Renvela] 2,400 mg PO DAILY PRN 10/10/18 02/27/19 History Furosemide [Lasix] 20 mg PO DAILY 12/23/18 02/27/19 History Aspirin 81 mg PO DAILY chew 12/25/18 02/27/19 Rx Allergies Allergy/AdvReac Type Severity Reaction Status Date / Time Penicillins Allergy Anaphylaxis Verified 02/27/19 07:42 Physical Exam Vitals: Vital Signs Temp Pulse Resp BP Pulse Ox 02/27/19 15:04 98.3 F 71 18 157/69 96 02/27/19 12:01 67 18 134/64 98 02/27/19 07:00 58 L 133/60 100 02/27/19 06:00 98.1 F 59 L 18 139/66 99 02/27/19 04:34 65 18 142/69 98 02/27/19 02:50 97.5 F L 70 16 169/80 100 Intake and Output 02/27/19 02/27/19 02/27/19 06:59 14:59 22:59 Other: Weight 97.522 kg Constitutional: No acute distress, conversant, pleasant Eyes: Anicteric sclerae, moist conjunctiva, no lid-lag, PERRLA ENMT: NC/AT,Oropharynx clear, no erythema, exudates Neck:Supple, FROM, no masses, or JVD, No carotid bruits; No thyromegaly Lungs: Clear to auscultation, Clear to percussion, Normal respiratory effort, no accessory muscle use Cardiovascular: Heart regular in rate and rhythm, aortic ejection murmur Abdominal: Soft Nontender, nom distended, no guarding, no rebound or rigidity, Normoactive bowel sounds No hepatomegaly, No splenomegaly, No palpable mass No abdominal wall hernia noted Skin: Normal temperature, tone, texture, turgor, No induration No subcutaneous nodules, No rash, lesions, No ulcers Extremities:No digital cyanosis No clubbing, Pedal pulses intact and symmetrical Radial pulses intact and symmetrical Normal gait and station, No calf tenderness Psychiatric: Alert and oriented to person, place and time, Appropriate affect Intact judgement Neuro: Muscles Strength 5/5 in all 4 extremities, Sensation to light touch grossly present throughout, Cranial nerves II-XII grossly intact. No focal sensory deficits Results CBC & Chem 7: 02/27/19 03:11 02/27/19 03:11 Labs: Abnormal Lab Results - Last 24 Hours (Table) 02/27/19 02/27/19 02/27/19 Range/Units 03:11 03:11 03:11 RBC 4.12 L (4.30-5.90) m/uL Hgb 12.4 L (13.0-17.5) gm/dL Hct 38.2 L (39.0-53.0) % Plt Count 134 L (150-450) k/uL Lymphocytes # 0.8 L (1.0-4.8) k/uL APTT (22.0-30.0) sec Potassium 5.5 H (3.5-5.1) mmol/L Chloride 97 L (98-107) mmol/L BUN 49 H (9-20) mg/dL Creatinine 6.54 H (0.66-1.25) mg/dL Glucose 370 H (74-99) mg/dL POC Glucose (mg/dL) (75-99) mg/dL Calcium 8.2 L (8.4-10.2) mg/dL Magnesium 2.6 H (1.6-2.3) mg/dL Troponin I 0.111 H* (0.000-0.034) ng/mL 02/27/19 02/27/19 02/27/19 Range/Units 06:28 08:35 08:35 RBC (4.30-5.90) m/uL Hgb (13.0-17.5) gm/dL Hct (39.0-53.0) % Plt Count (150-450) k/uL Lymphocytes # (1.0-4.8) k/uL APTT 75.0 H (22.0-30.0) sec Potassium (3.5-5.1) mmol/L Chloride (98-107) mmol/L BUN (9-20) mg/dL Creatinine (0.66-1.25) mg/dL Glucose (74-99) mg/dL POC Glucose (mg/dL) 214 H (75-99) mg/dL Calcium (8.4-10.2) mg/dL Magnesium (1.6-2.3) mg/dL Troponin I 0.114 H* (0.000-0.034) ng/mL 02/27/19 02/27/19 Range/Units 10:19 10:48 RBC (4.30-5.90) m/uL Hgb (13.0-17.5) gm/dL Hct (39.0-53.0) % Plt Count (150-450) k/uL Lymphocytes # (1.0-4.8) k/uL APTT (22.0-30.0) sec Potassium (3.5-5.1) mmol/L Chloride (98-107) mmol/L BUN (9-20) mg/dL Creatinine (0.66-1.25) mg/dL Glucose (74-99) mg/dL POC Glucose (mg/dL) 52 L 41 L (75-99) mg/dL Calcium (8.4-10.2) mg/dL Magnesium (1.6-2.3) mg/dL Troponin I (0.000-0.034) ng/mL Thrombosis Risk Factor Assmnt - Choose All That Apply Any of the Below Risk Factors Present?: Yes Each Factor Represents 1 point: Obesity (BMI >25) Other Risk Factors: Yes Each Risk Factor Represents 2 Points: Age 61-74 years Other congenital or acquired thrombophilia - If yes, enter type in comment: No Thrombosis Risk Factor Assessment Total Risk Factor Score: 3 Thrombosis Risk Factor Assessment Level: Moderate Risk Assessment and Plan (1) Chest pain Current Visit: Yes Status: Acute Code(s): R07.9 - CHEST PAIN, UNSPECIFIED SNOMED Code(s): 72259983 (2) Type 2 diabetes mellitus with hyperglycemia Current Visit: Yes Status: Acute Code(s): E11.65 - TYPE 2 DIABETES MELLITUS WITH HYPERGLYCEMIA SNOMED Code(s): 481330533873186 (3) Coronary artery disease Current Visit: Yes Status: Acute Code(s): I25.10 - ATHSCL HEART DISEASE OF [place] CORONARY ARTERY W/O ANG PCTRS SNOMED Code(s): 79111094 (4) ESRD (end stage renal disease) on dialysis Current Visit: No Status: Acute Code(s): N18.6 - END STAGE RENAL DISEASE; Z99.2 - DEPENDENCE ON RENAL DIALYSIS SNOMED Code(s): 952738655 Plan: The patient was placed in observation anticipate a less than 2 midnight stay after presenting with chest pain EKG showed sinus mechanism without any acute ischemia history troponins were slightly elevated at 0.111/.114 in the setting of end-stage renal disease on hemodialysis. The patient's pain was likely atypical as it was reproducible, patient was seen by cardiology Dr. Wilson, reviewed the patient's records apparently the patient had a recent stress test that was negative and had a echocardiogram done in December that showed normal LVEF apparently had a heart catheterization in February of last year requiring stenting of the proximal left circumflex. The patient was cleared by cardiology Dr. Wilson for discharge with recommendations for follow-up with his primary edgerman Dr. Cordero. This dictation will serve as both his HPI and same day discharge CODE STATUS: Full code Anticipated discharge: Today Discussed plan of care with: Patient and his
[2019-02-28] MEDS ORDERED: ASPIRIN 325 MG TAB PO SCH (09:00)
== END 2019-02-27 15:10 | disposition home or self-care (01) | DRG 313 ==
LOC: EC 02:47 → 3SCARD 06:50
PROVIDERS: ADMIT Internal Medicine; ATTEND Internal Medicine
DX: R07.89 Other chest pain (principal); N18.6 End stage renal disease; I13.2 Hypertensive heart and chronic kidney disease with heart failure and with stage 5 chronic kidney disease, or end stage renal disease; E10.22 Type 1 diabetes mellitus with diabetic chronic kidney disease; E10.65 Type 1 diabetes mellitus with hyperglycemia; E10.40 Type 1 diabetes mellitus with diabetic neuropathy, unspecified; Z96.41 Presence of insulin pump (external) (internal); Z79.4 Long term (current) use of insulin; E78.5 Hyperlipidemia, unspecified; I25.10 Atherosclerotic heart disease of native coronary artery without angina pectoris; I25.2 Old myocardial infarction; I50.9 Heart failure, unspecified; M19.041 Primary osteoarthritis, right hand; M19.042 Primary osteoarthritis, left hand; Z79.02 Long term (current) use of antithrombotics/antiplatelets; Z79.82 Long term (current) use of aspirin; Z79.899 Other long term (current) drug therapy; Z87.891 Personal history of nicotine dependence; Z95.1 Presence of aortocoronary bypass graft; Z95.2 Presence of prosthetic heart valve; Z95.5 Presence of coronary angioplasty implant and graft; Z98.42 Cataract extraction status, left eye; Z98.41 Cataract extraction status, right eye; Z96.1 Presence of intraocular lens; Z99.2 Dependence on renal dialysis; Z80.9 Family history of malignant neoplasm, unspecified; Z84.1 Family history of disorders of kidney and ureter; I27.20 Pulmonary hypertension, unspecified; D64.9 Anemia, unspecified
CPT/HCPCS: 36415; 71046; 80053; 83735; 83880; 84484; 85025; 85610; 85730; 93005; 96365; 96366; 96375; 96376; 99285

== ENCOUNTER → 2019-03-25 | Outpatient (CLI) | payer MEDICARE, BC ==
[2019-03-25 18:30] LABS: African American GFR (CKD) 10.4 (60.0-200.0); Albumin/Globulin Ratio 1.82 (1.60-3.17); Anion Gap 11.9 mmol/L (4.00-12.00); BUN/Creat Ratio 5.9 Ratio (12.00-20.00); Calcium 8.7 mg/dL (8.7-10.3); Carbon Dioxide 33.1 mmol/L (21.6-31.8); Chol/HDL Ratio 2.12; Globulin 2.2 g/dL (1.6-3.3); LDL Cholesterol,Calculated 47.6 mg/dL (0.0-131.0); Total Bilirubin 0.8 mg/dL (0.2-1.2); Total Protein 6.2 g/dL (6.2-8.2); VLDL Calculation 16.4 mg/dL (5.00-40.00)
[2019-03-25 18:36] LABS: T4, Free (Free Thyroxine) 1.1 ng/dL (0.80-1.80)
[2019-03-25 19:07] LABS: Hemoglobin A1C 6.7 % (4.0-6.0)
[2019-03-25 21:09] LABS: Urine Creatinine 49.8 mg/dL
== END ==
LOC: LABWHC1 10:43
PROVIDERS: ATTEND Internal Medicine Endocrinology, Diabetes & Metabolism
DX: E10.65 Type 1 diabetes mellitus with hyperglycemia (principal); E03.8 Other specified hypothyroidism
CPT/HCPCS: 36415; 80053; 80061; 82043; 82570; 83036; 84439; 84443

== ENCOUNTER → 2019-04-29 | Outpatient (CLI) | payer MEDICARE, BC ==
[2019-04-29 16:52] LABS: African American GFR (CKD) 10.8 (60.0-200.0); Albumin 3.8 g/dL (3.80-4.90); Albumin/Globulin Ratio 1.73 (1.60-3.17); Anion Gap 10.3 mmol/L (4.00-12.00); BUN/Creat Ratio 7.8 Ratio (12.00-20.00); Calcium 8.6 mg/dL (8.7-10.3); Carbon Dioxide 33.7 mmol/L (21.6-31.8); Globulin 2.2 g/dL (1.6-3.3); Potassium 4.7 mmol/L (3.5-5.5); Total Bilirubin 0.6 mg/dL (0.2-1.2)
[2019-04-29 16:53] LABS: Chol/HDL Ratio 1.93; LDL Cholesterol,Calculated 50.6 mg/dL (0.0-131.0); VLDL Calculation 11.4 mg/dL (5.00-40.00)
== END | disposition home or self-care (01) ==
LOC: LABWHC1 08:35
PROVIDERS: ATTEND Internal Medicine Interventional Cardiology
DX: E78.2 Mixed hyperlipidemia (principal)
CPT/HCPCS: 36415; 80053; 80061

== ENCOUNTER → 2020-03-18 | Outpatient (CLI) | payer MEDICARE, BC ==
--- NOTE | 2020-03-18 08:51 | XR ---
EXAMINATION TYPE: XR chest 2V DATE OF EXAM: 03/18/2020 COMPARISON: 02/27/2019 TECHNIQUE: PA and lateral views submitted. HISTORY: Pain FINDINGS: The lungs are clear and there is no pneumothorax, pleural effusion, or focal pneumonia. Heart size normal. No overt failure. Atherosclerotic change aorta. Hypertrophic and degenerative change of the s pine. IMPRESSION: 1. No acute process.
--- NOTE | 2020-03-18 08:52 | XR ---
EXAMINATION TYPE: XR thoracic spine complete DATE OF EXAM: 03/18/2020 COMPARISON: NONE HISTORY: Pain TECHNIQUE: 3 views submitted FINDINGS: Alignment is anatomic. There is no compression deformities. Multilevel hypertrophic and degenerative change. Appears to be question of a catheter or tubing overlying the left chest which is indetermina te and should be correlated clinically. Curvature of the spine noted. Surgical clips overlying the ep igastrium. IMPRESSION: 1. Multilevel hypertrophic and degenerative change. If symptoms persist correlate with MRI.
== END | disposition home or self-care (01) ==
LOC: RADXRMAIN 08:14
PROVIDERS: ATTEND Internal Medicine Geriatric Medicine
DX: M47.812 Spondylosis without myelopathy or radiculopathy, cervical region (principal); J44.9 Chronic obstructive pulmonary disease, unspecified
CPT/HCPCS: 71046; 72072

== ENCOUNTER → 2020-03-18 | Outpatient (CLI) | payer MEDICARE, BC ==
[2020-03-18 17:15] LABS: Chol/HDL Ratio 2.1; LDL Cholesterol,Calculated 48.8 mg/dL (0.0-131.0); VLDL Calculation 17.2 mg/dL (5.00-40.00)
== END | disposition home or self-care (01) ==
LOC: LABWHC1 08:12
PROVIDERS: ATTEND Internal Medicine Endocrinology, Diabetes & Metabolism
DX: E10.65 Type 1 diabetes mellitus with hyperglycemia (principal)
CPT/HCPCS: 36415; 80061; 84443

== ENCOUNTER 2020-06-11 18:14 | Emergency (ER) | payer MEDICARE, BC ==
--- NOTE | 2020-06-11 18:54 | ED ---
Chest Pain HPI - General Chief Complaint: Chest Pain Stated Complaint: Chest Pain Time Seen by Provider: 06/11/20 18:54 Source: patient, RN notes reviewed, old records reviewed Mode of arrival: ambulatory Limitations: no limitations - History of Present Illness Initial Comments: this is a 65-year-old male DF for chest pain history of recent chest pain e xertional dyspnea. Patient had dialysis today and than normal doing activity at home became severely short of breath patient is recent travel history or sick contacts. Patient does have persistent chest pain currently here in the MD Complaint: chest pain -: hour(s) Onset: during rest, during exertion Pain Location: left chest Pain Radiation: none Severity: moderate Severity scale (1-10): 4 Quality: tightness Consistency: intermittent Improves With: nothing Worsens With: nothing Anginal Symptoms: nausea, vomiting Other Symptoms: cough Treatments Prior to Arrival: none - Related Data Home Medications Medication Instructions Recorded Confirmed Carvedilol [Coreg] 12.5 mg PO BID 03/30/17 02/27/19 INSULIN LISPRO (For Pump) [humaLOG See Protocol SQ-PUMP CONTINUOUS 03/30/17 02/27/19 (For Pump)] Ranolazine [Ranexa] 1,000 mg PO DAILY 03/30/17 02/27/19 lisinopriL [Zestril] 10 mg PO DAILY@1730 03/30/17 02/27/19 Isosorbide Mononitrate ER [Imdur] 60 mg PO DAILY 04/11/17 02/27/19 Dialyvite 1 tab PO DAILY 10/09/17 02/27/19 Clopidogrel [Plavix] 75 mg PO DAILY 09/27/18 02/27/19 Sevelamer [Renvela] 2,400 mg PO DAILY PRN 10/10/18 02/27/19 Furosemide [Lasix] 20 mg PO DAILY 12/23/18 02/27/19 Previous Rx's Medication Instructions Recorded Atorvastatin [Lipitor] 40 mg PO DAILY@1730 #30 tab 03/06/18 Nitroglycerin Sl Tabs [Nitrostat] 0.4 mg SUBLINGUAL Q5M PRN #25 tab 03/06/18 Sevelamer [Renvela] 3,200 mg PO AC-TID #100 tab 03/06/18 Aspirin 81 mg PO DAILY chew 12/25/18 Allergies Allergy/AdvReac Type Severity Reaction Status Date / Time Penicillins Allergy Anaphylaxis Verified 06/11/20 18:30 Review of Systems ROS Statement: Those systems with pertinent positive or pertinent negative responses have been documented in the HPI. ROS Other: All systems not noted in ROS Statement are negative. EKG Findings - EKG Comments: EKG Findings:: EKG shows sinus rhythm 75 MS 260 QRS 1:30 QTC 504 Past Medical History Past Medical History: Coronary Artery Disease (CAD), Chest Pain / Angina, Heart Failure, Diabetes Mellitus, Eye Disorder, Hyperlipidemia, Hypertension, Myocardial Infarction ([place]), Osteoarthritis (OA), Renal Disease Additional Past Medical History / Comment(s): IDDM type I with insulin pump, neuropathy bilateral legs, ESRD with hemodialysis M,W,F, normocytic anemia, pulmonary edema, ischemic heart disease, arthritis bilateral hands, past L eye ocular palsy-resolved. Last Myocardial Infarction Date:: 03/04/18 History of Any Multi-Drug Resistant Organisms: None Reported Past Surgical History: Cardiac Valve Replacement, Coronary Bypass/CABG, Heart Catheterization, Heart Catheterization With Stent Additional Past Surgical History / Comment(s): AVF R forearm, 2015 aortic Valve replacement (swine), PCI with stents, CABG twice-first surgery in 2000 at [facility] and 2nd surgery around 2012 at [place] with post op infection with surgery, umbilical hernia repair, colonoscopy, catataract bilaterally with lens implants, thyroid surgery. Past Anesthesia/Blood Transfusion Reactions: No Reported Reaction Additional Past Anesthesia/Blood Transfusion Reaction / Comment(s): Pt has received blood in past without reaction. Date of Last Stent Placement:: 03/04/18 Past Psychological History: No Psychological Hx Reported Smoking Status: Never smoker Past Alcohol Use History: None Reported Past Drug Use History: None Reported - Past Family History Mother Family Medical History: Cancer, Renal Disease Additional Family Medical History / Comment(s): Mother is . Pt does not recall type of cancer. Father Family Medical History: No Reported History Additional Family Medical History / Comment(s): Pt states father is healthy and is in his mid-late 80s. General Exam Limitations: no limitations General appearance: alert, in no apparent distress Head exam: Present: atraumatic, normocephalic, normal inspection Eye exam: Present: normal appearance, PERRL, EOMI. Absent: scleral icterus, conjunctival injection, periorbital swelling ENT exam: Present: normal exam, mucous membranes moist Neck exam: Present: normal inspection. Absent: tenderness, meningismus, lymphadenopathy Respiratory exam: Present: normal lung sounds bilaterally. Absent: respiratory distress, wheezes, rales, rhonchi, stridor Cardiovascular Exam: Present: regular rate, normal rhythm, normal heart sounds. Absent: systolic murmur, diastolic murmur, rubs, gallop, clicks GI/Abdominal exam: Present: soft, normal bowel sounds. Absent: distended, tenderness, guarding, rebound, rigid Extremities exam: Present: normal inspection, full ROM, normal capillary refill. Absent: tenderness, pedal edema, joint swelling, calf tenderness Back exam: Present: normal inspection Neurological exam: Present: alert, oriented X3, CN II-XII intact Psychiatric exam: Present: normal affect, normal mood Skin exam: Present: warm, dry, intact, normal color. Absent: rash Course Vital Signs 06/11/20 06/11/20 18:28 21:02 Temperature 98.1 F 98.6 F Pulse Rate 75 73 Respiratory 20 18 Rate Blood Pressure 96/55 138/64 O2 Sat by Pulse 100 99 Oximetry - Reevaluation(s) Reevaluation #1: 06/11/20 21:24 ecords reviewed Reevaluation #2: 06/11/20 21:24 patient does have intermittent chest pain here in the ER - Consultations Consultation #1: spoke with Dr. Bains who agrees to admit this patient Chest Pain MDM - MDM 65 male DF with typical chest pain history of chest pain patient be admitted for cardiac observation Critical Care Time Critical Care Time: Yes Total Critical Care Time: 31 Disposition Clinical Impression: Chest pain, NSTEMI (non-ST elevated myocardial infarction) Disposition: ADMITTED IP TO THIS HOSP Condition: Fair Is patient prescribed a controlled substance at d/c from ED?: No Referrals: Travis Bains MD [Primary Care Provider] - 1-2 days
[2020-06-11 19:42] LABS: Basophils # (A) 0.1 k/uL (0-0.2); Basophils % (A) 1 %; Eosinophils # (A) 0.2 k/uL (0-0.7); Eosinophils % (A) 3 %; HCT 41.2 % (39.0-53.0); HGB 13.4 gm/dL (13.0-17.5); Hypochromasia Slight; Lymphocytes # (A) 0.7 k/uL (1.0-4.8); Lymphocytes % (A) 12 %; MCH 32.5 pg (25.0-35.0); MCHC 32.5 g/dL (31.0-37.0); Macrocytosis Slight; Mean Platelet Volume 8.1; Monocytes # (A) 0.3 k/uL (0-1.0); Monocytes % (A) 5 %; Neutrophils # (A) 4.5 k/uL (1.3-7.7); Neutrophils % (A) 77 %; RBC 4.12 m/uL (4.30-5.90); RDW 15.8 % (11.5-15.5); WBC 5.8 k/uL (3.8-10.6)
[2020-06-11 19:53] LABS: Partial Thromboplastin Time 23.5 sec (22.0-30.0); Prothrombin Time 10.5 sec (9.0-12.0)
[2020-06-11 20:00] LABS: Calcium 8.7 mg/dL (8.4-10.2); Magnesium 2.1 mg/dL (1.6-2.3); Potassium 4.5 mmol/L (3.5-5.1); Total Bilirubin 1.4 mg/dL (0.2-1.3); Total Protein 6.7 g/dL (6.3-8.2)
--- NOTE | 2020-06-11 20:20 | XR ---
EXAMINATION TYPE: XR chest 2V DATE OF EXAM: 06/11/2020 COMPARISON: 03/18/2020 HISTORY: Fall. Back pain TECHNIQUE: FINDINGS: There is no heart failure nor confluent pneumonic infiltrate. Costophrenic angles are clear . Bony thorax is intact. There are chest leads. IMPRESSION: No active cardiopulmonary disease. Normal heart. No change.
[2020-06-11 20:27] LABS: Platelet Count 94 k/uL (150-450)
[2020-06-11 21:06] VITALS: RESP 18
[2020-06-11] MEDS ORDERED: NITROGLYCERIN SL TABS 0.4 MG TAB SUBLINGUAL PRN (21:20)
[2020-06-11] MEDS ORDERED: MORPHINE SULFATE 4 MG/ML SYRINGE IV PRN (21:20)
[2020-06-11 22:51] VITALS: BP 130/71; PULSE 69; TEMP 98
[2020-06-12] MEDS ORDERED: ASPIRIN 325 MG TAB PO SCH (09:00)
== END 2020-06-11 22:51 | disposition home or self-care (01) ==
LOC: EC 18:14 → UNDOADMOB 21:23 → 3SCARD 21:23 → EC 22:51
DX: I21.4 Non-ST elevation (NSTEMI) myocardial infarction (principal); I50.9 Heart failure, unspecified; Z96.41 Presence of insulin pump (external) (internal); I25.2 Old myocardial infarction; E10.40 Type 1 diabetes mellitus with diabetic neuropathy, unspecified; I13.0 Hypertensive heart and chronic kidney disease with heart failure and stage 1 through stage 4 chronic kidney disease, or unspecified chronic kidney disease; N18.6 End stage renal disease; Z79.899 Other long term (current) drug therapy; Z88.0 Allergy status to penicillin; Z99.2 Dependence on renal dialysis; Z95.5 Presence of coronary angioplasty implant and graft; Z95.1 Presence of aortocoronary bypass graft; Z98.42 Cataract extraction status, left eye; Z98.41 Cataract extraction status, right eye; Z96.1 Presence of intraocular lens
CPT/HCPCS: 36415; 71046; 80053; 83735; 84484; 85025; 85610; 85730; 93005; 99291

== ENCOUNTER 2020-06-14 11:10 | Inpatient (IN) | payer MEDICARE, BC ==
[2020-06-14] MEDS ORDERED: NITROGLYCERIN OINT 1 INCH/GM PACKET TOPICAL STA (11:25)
--- NOTE | 2020-06-14 11:27 | ED ---
Chest Pain HPI - General Source: patient, EMS, RN notes reviewed Mode of arrival: EMS Limitations: no limitations <Chuck Barker - Last Filed: 06/14/20 12:42> <Antonio Bhatti - Last Filed: 06/14/20 13:08> - General Stated Complaint: chest pain Time Seen by Provider: 06/14/20 11:17 - History of Present Illness Initial Comments: 65-year-old male presents emergency Department with chief complaint of chest pain. Patient states this started after he walked out of dialysis this morning. Patient states he had a normal treatment.patient states he has ahistory of renal failure on dialysis from diabetes. Patient does have a history of cardiac disease including CABG, multiple stents, regular replacement. Patient states that he was given aspirin by EMS he did take 2 nitro prior to EMS arriving which helped his pain. Patient states he had similar pain on Sunday states that he was given be admitted but states that he was told they were unable to do anything over the weekend so he left. Patient states that pain did not return until today. (Chuck Barker) - Related Data Home Medications Medication Instructions Recorded Confirmed INSULIN LISPRO (For Pump) [humaLOG See Protocol SQ-PUMP CONTINUOUS 03/30/17 06/14/20 (For Pump)] Ranolazine [Ranexa] 1,000 mg PO DAILY 03/30/17 06/14/20 lisinopriL [Zestril] 10 mg PO DAILY 03/30/17 06/14/20 Isosorbide Mononitrate ER [Imdur] 60 mg PO DAILY 04/11/17 06/14/20 Dialyvite 1 tab PO DAILY 10/09/17 06/14/20 Clopidogrel [Plavix] 75 mg PO DAILY 09/27/18 06/14/20 Sevelamer [Renvela] 2,400 mg PO DAILY PRN 10/10/18 06/14/20 Carvedilol [Coreg] 12.5 mg PO MOWEFR@0300 06/11/20 06/14/20 Carvedilol [Coreg] 25 mg PO MOWEFR@1000 06/11/20 06/14/20 Carvedilol [Coreg] 25 mg PO SUTUTHSA 06/11/20 06/14/20 Furosemide [Lasix] 40 mg PO DAILY 06/11/20 06/14/20 Levothyroxine Sodium [Synthroid] 50 mcg PO DAILY 06/11/20 06/14/20 Atorvastatin Calcium [Lipitor] 20 mg PO DAILY 06/14/20 06/14/20 Previous Rx's Medication Instructions Recorded Sevelamer [Renvela] 3,200 mg PO AC-TID #100 tab 03/06/18 Allergies Allergy/AdvReac Type Severity Reaction Status Date / Time Penicillins Allergy Anaphylaxis Verified 06/14/20 11:52 Review of Systems ROS Other: All systems not noted in ROS Statement are negative. <Chuck Barker - Last Filed: 06/14/20 12:42> ROS Other: All systems not noted in ROS Statement are negative. <Antonio Bhatti - Last Filed: 06/14/20 13:08> ROS Statement: Those systems with pertinent positive or pertinent negative responses have been documented in the HPI. EKG Findings - EKG Comments: EKG Findings:: EKG performed at 11:17 sinus rhythm with first-degree block, multiple PVCs, left axis deviation rate of 83 IL interval 220 QRS 120 QT/QTC 444/521 <Chuck Barker - Last Filed: 06/14/20 12:42> Past Medical History Past Medical History: Coronary Artery Disease (CAD), Chest Pain / Angina, Heart Failure, Diabetes Mellitus, Eye Disorder, Hyperlipidemia, Hypertension, Myocardial Infarction ([place]), Osteoarthritis (OA), Renal Disease Additional Past Medical History / Comment(s): IDDM type I with insulin pump, neuropathy bilateral legs, ESRD with hemodialysis M,W,F, normocytic anemia, pulmonary edema, ischemic heart disease, arthritis bilateral hands, past L eye ocular palsy-resolved. Last Myocardial Infarction Date:: 03/04/18 History of Any Multi-Drug Resistant Organisms: None Reported Past Surgical History: Cardiac Valve Replacement, Coronary Bypass/CABG, Heart Catheterization, Heart Catheterization With Stent Additional Past Surgical History / Comment(s): AVF R forearm, 2015 aortic Valve replacement (swine), PCI with stents, CABG twice-first surgery in 2000 at [facility] and 2nd surgery around 2012 at [place] with post op infection with surgery, umbilical hernia repair, colonoscopy, catataract bilaterally with lens implants, thyroid surgery. Past Anesthesia/Blood Transfusion Reactions: No Reported Reaction Additional Past Anesthesia/Blood Transfusion Reaction / Comment(s): Pt has received blood in past without reaction. Date of Last Stent Placement:: 03/04/18 Past Psychological History: No Psychological Hx Reported Smoking Status: Never smoker Past Alcohol Use History: None Reported Past Drug Use History: None Reported - Past Family History Mother Family Medical History: Cancer, Renal Disease Additional Family Medical History / Comment(s): Mother is . Pt does not recall type of cancer. Father Family Medical History: No Reported History Additional Family Medical History / Comment(s): Pt states father is healthy and is in his mid-late 80s. <Chuck Barker - Last Filed: 06/14/20 12:42> General Exam General appearance: alert, in no apparent distress Head exam: Present: atraumatic, normocephalic, normal inspection Eye exam: Present: normal appearance, PERRL, EOMI. Absent: scleral icterus, co njunctival injection, periorbital swelling ENT exam: Present: normal exam, normal oropharynx, mucous membranes moist Neck exam: Present: normal inspection, full ROM. Absent: tenderness, meningismus, lymphadenopathy Respiratory exam: Present: normal lung sounds bilaterally. Absent: respiratory distress, wheezes, rales, rhonchi, stridor Cardiovascular Exam: Present: regular rate, normal rhythm, normal heart sounds. Absent: systolic murmur, diastolic murmur, rubs, gallop, clicks GI/Abdominal exam: Present: soft, normal bowel sounds. Absent: distended, tenderness, guarding, rebound, rigid Extremities exam: Present: other (fistula right arm) <Chuck Barker - Last Filed: 06/14/20 12:42> Course <Antonio Bhatti - Last Filed: 06/14/20 13:08> Vital Signs 06/14/20 06/14/20 11:38 12:39 Temperature 97.8 F Pulse Rate 77 77 Respiratory 18 18 Rate Blood Pressure 136/72 122/71 O2 Sat by Pulse 95 100 Oximetry - Reevaluation(s) Reevaluation #1: 06/14/20 13:07 Patient reevaluated and reexamined by myself, Dr. Bhatti. Patient and family updated on results and plan. Case was discussed in detail with Dr. Bains who will admit his patient. Dr. Morgan has also been made aware of the patient and is currently evaluating patient. I agree with PAs findings. This includes diagnostic interpretation and treatment plan. (Antonio Bhatti) Chest Pain MDM <Chuck Barker - Last Filed: 06/14/20 12:42> - MDM 65-year-old male presents emergency department for chest pain. Patient had elevated troponin on prior ER visit. Patient will be admitted for cardiology evaluation. Patient was started on heparin. Case discussed with Dr. Bains and Dr. Morgan. Patient noted by tape transferrer in the emergency department. (Chuck Barker) Disposition Is patient prescribed a controlled substance at d/c from ED?: No <Chuck Barker - Last Filed: 06/14/20 12:42> <Antonio Bhatti - Last Filed: 06/14/20 13:08> Clinical Impression: NSTEMI (non-ST elevated myocardial infarction) Disposition: ADMITTED IP TO THIS HOSP Condition: Fair Referrals: Travis Bains MD [Primary Care Provider] - 1-2 days
[2020-06-14 11:59] LABS: Anisocytosis Slight; Basophils % (A) 1 %; Eosinophils # (A) 0.2 k/uL (0-0.7); Eosinophils % (A) 3 %; HCT 38.3 % (39.0-53.0); HGB 12.8 gm/dL (13.0-17.5); Lymphocytes # (A) 0.6 k/uL (1.0-4.8); Lymphocytes % (A) 10 %; MCH 31.9 pg (25.0-35.0); MCHC 33.4 g/dL (31.0-37.0); MCV 95.3 fL (80.0-100.0); Mean Platelet Volume 8.3; Monocytes # (A) 0.3 k/uL (0-1.0); Monocytes % (A) 6 %; Neutrophils # (A) 4.7 k/uL (1.3-7.7); Neutrophils % (A) 79 %; Platelet Count 102 k/uL (150-450); RBC 4.02 m/uL (4.30-5.90); RDW 16.3 % (11.5-15.5); WBC 5.9 k/uL (3.8-10.6)
[2020-06-14 12:02] LABS: Partial Thromboplastin Time 22.6 sec (22.0-30.0); Prothrombin Time 10.1 sec (9.0-12.0)
[2020-06-14 12:06] LABS: Albumin 3.9 g/dL (3.5-5.0); Calcium 8.5 mg/dL (8.4-10.2); Total Bilirubin 2.2 mg/dL (0.2-1.3); Total Protein 6.9 g/dL (6.3-8.2)
[2020-06-14 12:18] LABS: Potassium 4.1 mmol/L (3.5-5.1)
[2020-06-14] MEDS ORDERED: MORPHINE SULFATE 4 MG/ML SYRINGE IVP STA ×2 (12:22→14:54)
[2020-06-14] MEDS ORDERED: ONDANSETRON 4 MG/2 ML VIAL IVP STA (12:22)
--- NOTE | 2020-06-14 12:27 | XR ---
EXAMINATION TYPE: XR chest 2V DATE OF EXAM: 06/14/2020 COMPARISON: Chest x-ray 06/11/2020 CT chest 12/24/2018 HISTORY: Chest pain TECHNIQUE: Frontal and lateral views of the chest are obtained. FINDINGS: Lung volumes are low. Patient is rotated. Scattered nodularity is present throughout the tam ngs. There is no pleural effusion or pneumothorax seen. The cardiac silhouette size is within normal limits. There is flattening the hemidiaphragms, increased AP diameter chest. Patient is post cardia c valve replacement level of the root of aorta. The osseous structures are intact. IMPRESSION: There is underlying emphysema. Ascending aortic aneurysm. Expiratory rotated exam. Old g ranulomatous disease.
[2020-06-14] MEDS ORDERED: HEPARIN SODIUM,PORCINE 5,000 UNIT/ML 1 ML VIAL IV ONE (12:43)
[2020-06-14] MEDS ORDERED: NITROGLYCERIN SL TABS 0.4 MG TAB SUBLINGUAL PRN (12:43)
[2020-06-14 12:44] LABS: Glucose,Whole Blood 91 mg/dL (75-99)
--- NOTE | 2020-06-14 13:09 | P.CRDCN ---
History of Present Illness Consult date: 06/14/20 Chief complaint: Chest pain History of present illness: This is a very pleasant 65-year-old gentleman with extensive cardiac history consistent of coronary artery disease where in 2000 he underwent coronary artery that is grafting with MCDERMOTT to LAD and in 2018 he underwent stenting of the left circumflex coronary artery and at that point she was found to have patent MCDERMOTT to LAD with mild disease involving the right coronary artery. Beside that the patient does have diabetes and hypertension and dyslipidemia and also he does have end stage renal disease on hemodialysis. Also in 2014 he underwent aortic valve replacement using bioprosthetic valve at [facility]. He presented to the hospital 2 days ago complaining of chest discomfort where at that point he was reassured and he was discharged home. He presented back to [facility] this time complaining of chest discomfort again which he described as a pressure/sharp kind of discomfort in the mid of the chest without any radiation to the arms or neck or shoulders and without any associated symptoms of shortness of breath or any dizziness or lightheadedness or sweating or any feeling of heart racing or fluttering or syncope. The troponin came in to be abnormal. The EKG showed sinus rhythm with frequent premature ventricular contraction and also Q wave in the septal leads with mild about [address] segment elevation in the septal leads as well seems to be chronic compared to previous EKG with atypical left bundle-branch block. The rest of his blood work overall came in to be unremarkable. The chest x-ray did not show any acute abnormalities. The echo from 2018 revealed normal left ventricle systolic function with mild bioprosthetic aortic valve stenosis. Currently the patient is on aspirin as well as on heparin. He's hemodynamically stable. Giving the above finding and a chest discomfort I advised the patient to undergo a heart catheterization. I'm going to contact his primary dimethylaniline sulfator operator Dr. Cordero to perform the procedure for him. Past Medical History Past Medical History: Coronary Artery Disease (CAD), Chest Pain / Angina, Heart Failure, Diabetes Mellitus, Eye Disorder, Hyperlipidemia, Hypertension, Myocardial Infarction ([place]), Osteoarthritis (OA), Renal Disease Additional Past Medical History / Comment(s): IDDM type I with insulin pump, neuropathy bilateral legs, ESRD with hemodialysis M,W,F, normocytic anemia, pulmonary edema, ischemic heart disease, arthritis bilateral hands, past L eye ocular palsy-resolved. Last Myocardial Infarction Date:: 03/04/18 History of Any Multi-Drug Resistant Organisms: None Reported Past Surgical History: Cardiac Valve Replacement, Coronary Bypass/CABG, Heart Catheterization, Heart Catheterization With Stent Additional Past Surgical History / Comment(s): AVF R forearm, 2015 aortic Valve replacement (swine), PCI with stents, CABG twice-first surgery in [address] [facility] and 2nd surgery around 2012 at [place] with post op infection with surgery, umbilical hernia repair, colonoscopy, catataract bilaterally with lens implants, thyroid surgery. Past Anesthesia/Blood Transfusion Reactions: No Reported Reaction Additional Past Anesthesia/Blood Transfusion Reaction / Comment(s): Pt has received blood in past without reaction. Date of Last Stent Placement:: 03/04/18 Past Psychological History: No Psychological Hx Reported Smoking Status: Never smoker Past Alcohol Use History: None Reported Past Drug Use History: None Reported - Past Family History Mother Family Medical History: Cancer, Renal Disease Additional Family Medical History / Comment(s): Mother is . Pt does not recall type of cancer. Father Family Medical History: No Reported History Additional Family Medical History / Comment(s): Pt states father is healthy and is in his mid-late 80s. Medications and Allergies Home Medications Medication Instructions Recorded Confirmed Type INSULIN LISPRO (For Pump) [humaLOG See Protocol SQ-PUMP CONTINUOUS 03/30/17 06/14/20 History (For Pump)] Ranolazine [Ranexa] 1,000 mg PO DAILY 03/30/17 06/14/20 History lisinopriL [Zestril] 10 mg PO DAILY 03/30/17 06/14/20 History Isosorbide Mononitrate ER [Imdur] 60 mg PO DAILY 04/11/17 06/14/20 History Dialyvite 1 tab PO DAILY 10/09/17 06/14/20 History Sevelamer [Renvela] 3,200 mg PO AC-TID #100 tab 03/06/18 06/14/20 Rx Clopidogrel [Plavix] 75 mg PO DAILY 09/27/18 06/14/20 History Sevelamer [Renvela] 2,400 mg PO DAILY PRN 10/10/18 06/14/20 History Carvedilol [Coreg] 12.5 mg PO MOWEFR@0300 06/11/20 06/14/20 History Carvedilol [Coreg] 25 mg PO MOWEFR@1000 06/11/20 06/14/20 History Carvedilol [Coreg] 25 mg PO SUTUTHSA 06/11/20 06/14/20 History Furosemide [Lasix] 40 mg PO DAILY 06/11/20 06/14/20 History Levothyroxine Sodium [Synthroid] 50 mcg PO DAILY 06/11/20 06/14/20 History Atorvastatin Calcium [Lipitor] 20 mg PO DAILY 06/14/20 06/14/20 History Allergies Allergy/AdvReac Type Severity Reaction Status Date / Time Penicillins Allergy Anaphylaxis Verified 06/14/20 11:52 Physical Exam Vitals: Vital Signs Temp Pulse Resp BP Pulse Ox 06/14/20 12:39 77 18 122/71 100 06/14/20 11:38 97.8 F 77 18 136/72 95 Intake and Output 06/13/20 06/14/20 06/14/20 22:59 06:59 14:59 Other: Weight 97.069 kg - Constitutional General appearance: no acute distress - Respiratory Respiratory: bilateral: CTA - Cardiovascular Rhythm: regular Heart sounds: normal: S1, S2 Abnormal Heart Sounds: systolic murmur Results 06/14/20 11:38 06/14/20 11:38 Cardiac Enzymes 06/14/20 06/14/20 Range/Units 11:38 11:38 AST 47 (17-59) U/L Troponin I 2.620 H* (0.000-0.034) ng/mL Coagulation 06/14/20 Range/Units 11:38 PT 10.1 (9.0-12.0) sec APTT 22.6 (22.0-30.0) sec CBC 06/14/20 Range/Units 11:38 WBC 5.9 (3.8-10.6) k/uL RBC 4.02 L (4.30-5.90) m/uL Hgb 12.8 L (13.0-17.5) gm/dL Hct 38.3 L (39.0-53.0) % Plt Count 102 L (150-450) k/uL Comprehensive Metabolic Panel 06/14/20 Range/Units 11:38 Sodium 136 L (137-145) mmol/L Potassium 4.1 (3.5-5.1) mmol/L Chloride 96 L (98-107) mmol/L Carbon Dioxide 32 H (22-30) mmol/L BUN 20 (9-20) mg/dL Creatinine 4.36 H (0.66-1.25) mg/dL Glucose 94 (74-99) mg/dL Calcium 8.5 (8.4-10.2) mg/dL AST 47 (17-59) U/L ALT 22 (4-49) U/L Alkaline Phosphatase 56 (38-126) U/L Total Protein 6.9 (6.3-8.2) g/dL Albumin 3.9 (3.5-5.0) g/dL Current Medications Generic Name Dose Route Start Last Admin Trade Name Freq PRN Reason Stop Dose Admin Aspirin 325 mg 06/15/20 09:00 Aspirin 325 Mg Tab PO DAILY MOMO Heparin Sodium/Sodium Chloride 250 mls @ 9.998 mls/hr 06/14/20 12:45 25,000 unit/ Sodium Chloride IV .Q24H MOMO Protocol 10.3 UNITS/KG/HR Nitroglycerin 0.4 mg 06/14/20 12:43 Nitroglycerin Sl Tabs 0.4 Mg Tab SUBLINGUAL Q5M PRN Chest Pain Intake and Output 06/13/20 06/14/20 06/14/20 22:59 06:59 14:59 Other: Weight 97.069 kg Patient Weight 06/15/20 06:59 Weight 97.069 kg 06/14/20 11:38 06/14/20 11:38 Assessment and Plan Assessment: Assessment #1 acute coronary event. #2 known severe coronary artery disease and prior MCDERMOTT to LAD and prior stenting of the left circumflex #3 end stage renal disease on dialysis #4 hypertension #5 dyslipidemia #6 diabetes Plan #1 continue aspirin as well as heparin #2 restart the patient on beta renetta as well as statin as well as lisinopril #3 obtain an echocardiogram was Doppler #4 I advised the patient to undergo a coronary angiogram #5 follow-up with the patient Thank you for allowing us participate in his care
[2020-06-14] MEDS: HEPARIN SOD,PORK IN 0.45% NACL 25,000 UNIT in 0.45% NACL 1 250ML.BAG IV SCH (13:30)
[2020-06-14 14:42] LABS: Glucose,Whole Blood 37 mg/dL (75-99)
[2020-06-14] MEDS ORDERED: NITROGLYCERIN-D5W PMX 50 MG in DEXTROSE/WATER 1 250ML.BAG IV SCH (14:45)
[2020-06-14] MEDS ORDERED: INSPUCOR MISCELLANE PRN (14:50)
[2020-06-14] MEDS ORDERED: INSULIN ASPART (NovoLOG) 100 UNIT/ML VIAL SQ PRN (14:50)
[2020-06-14] MEDS: lisinopriL 10 MG TAB PO SCH (14:51)
[2020-06-14 15:19] LABS: Glucose,Whole Blood 124 mg/dL (75-99)
[2020-06-14] MEDS ORDERED: INSULIN PUMP BASAL RATES 1 EACH MISC MISCELLANE PRN (15:26)
[2020-06-14] MEDS ORDERED: INSULIN PUMP TARGET GLUCOSE 1 EACH MISC MISCELLANE PRN (15:26)
[2020-06-14] MEDS ORDERED: INSULIN PUMP ACTIVE INSULIN 1 EACH MISC MISCELLANE PRN (15:26)
[2020-06-14] MEDS ORDERED: SEVELAMER 800 MG TAB PO PRN (18:24)
[2020-06-14 18:39] LABS: Glucose,Whole Blood 252 mg/dL (75-99)
[2020-06-14] MEDS: INSULIN PUMP MEAL BOLUS 1 UNIT MISC MISCELLANE SCH ×2 (20:26→22:11)
[2020-06-14] MEDS: INSULIN LISPRO (For Pump) 100 UNIT/ML VIAL SQ-PUMP SCH (20:27)
[2020-06-14] MEDS: NITROGLYCERIN-D5W PMX 50 MG in DEXTROSE/WATER 1 250ML.BAG IV SCH (21:17)
--- NOTE | 2020-06-14 22:14 | P.HPIM ---
History of Present Illness H&P Date: 06/14/20 Chief Complaint: Acute coronary syndrome, known history of coronary artery d graciela colbert 65-year-old male one of my office patient who seen cardiology regular basis known to have history of coronary disease post bypass surgery with MCDERMOTT to the LAD and [place] the graft on the left circumflex artery. Patient also with dialysis the times a week and has been doing well till few days earlier when he developed to have significant chest pain with exertion associated with significant shortness of breath ended up coming to the emergency department tested and cardiac enzymes were negative patient ended up being discharged home to see cardiology as an outpatient. Hardly finish dialysis today with patient developed to have significant midsternal chest point and along with nausea without vomiting and had significant lightheadedness. Patient ended up coming mers department at [facility] where was seen his CK was significantly elevated originally and the total was 2.70. Patient will be kept on heparin drip seeing cardiology and plan for heart catheter based on current symptoms. Review of Systems CONSTITUTIONAL: Well-developed no acute respiratory distress. EYES: No icterus sclerae, no conjunctivitis. EARS, NOSE, MOUTH, THROAT, and FACE: No sore throat, lymphadenopathy, carotid bruits or deformity. RESPIRATORY: Positive shortness of breath and chest pain with mild cough or wheezes. CARDIOVASCULAR: Positive PND orthopnea and palpitation. GASTROINTESTINAL: Positive abdominal discomfort with nausea no vomiting no diarrhea this point. GENITOURINARY: Decrease urine output on hemodialysis no sign of infection. INTEGUMENT/BREAST: Negative for any muscular injury with mild osteoarthritis.. HEMATOLOGIC/LYMPHATIC: Negative for bleed or purpura. MUSCULOSKELTAL: Negative for Myalgia or arthralgia. NEURLOGICAL: No LOC, Sz or syncope, blurred vision dizziness or abnormality.. BEHAVIORAL/PSYCH: Negative. ENDOCRINE: Negative. Past Medical History Past Medical History: Coronary Artery Disease (CAD), Chest Pain / Angina, Heart Failure, Diabetes Mellitus, Eye Disorder, Hyperlipidemia, Hypertension, Myocardial Infarction (IA), Osteoarthritis (OA), Renal Disease Additional Past Medical History / Comment(s): IDDM type I with insulin pump, neuropathy bilateral legs, ESRD with hemodialysis M,W,F, normocytic anemia, pulmonary edema, ischemic heart disease, arthritis bilateral hands, past L eye ocular palsy-resolved. Last Myocardial Infarction Date:: 03/04/18 History of Any Multi-Drug Resistant Organisms: None Reported Past Surgical History: Cardiac Valve Replacement, Coronary Bypass/CABG, Heart Catheterization, Heart Catheterization With Stent Additional Past Surgical History / Comment(s): AVF R forearm, 2015 aortic Valve replacement (swine), PCI with stents, CABG twice-first surgery in 2000 at [facility] and 2nd surgery around 2012 at [place] with post op infection with surgery, umbilical hernia repair, colonoscopy, catataract bilaterally with lens implants, thyroid surgery. Past Anesthesia/Blood Transfusion Reactions: No Reported Reaction Additional Past Anesthesia/Blood Transfusion Reaction / Comment(s): Pt has received blood in past without reaction. Date of Last Stent Placement:: 03/04/18 Past Psychological History: No Psychological Hx Reported Additional Psychological History / Comment(s): Pt resides with his spouse. He is retired due to medical problems. He drives. Pt goes to hemodialysis 3 times a week. He has a glucometer and insulin pump. Smoking Status: Never smoker Past Alcohol Use History: None Reported Additional Past Alcohol Use History / Comment(s): Pt started smoking in 1968 and quit in 1984. SMOKED 2PPD Past Drug Use History: None Reported - Past Family History Mother Family Medical History: Cancer, Renal Disease Additional Family Medical History / Comment(s): Mother is . Pt does not recall type of cancer. Father Family Medical History: No Reported History Additional Family Medical History / Comment(s): Pt states father is healthy and is in his mid-late 80s. Medications and Allergies Home Medications Medication Instructions Recorded Confirmed Type RX: INSULIN LISPRO (For Pump) See Protocol SQ-PUMP CONTINUOUS 03/30/17 06/14/20 History [humaLOG (For Pump)] RX: Ranolazine [Ranexa] 1,000 mg PO DAILY 03/30/17 06/14/20 History RX: lisinopriL [Zestril] 10 mg PO DAILY 03/30/17 06/14/20 History RX: Isosorbide Mononitrate ER 60 mg PO DAILY 04/11/17 06/14/20 History [Imdur] Dialyvite 1 tab PO DAILY 10/09/17 06/14/20 History RX: Sevelamer [Renvela] 3,200 mg PO AC-TID #100 tab 03/06/18 06/14/20 Rx RX: Clopidogrel [Plavix] 75 mg PO DAILY 09/27/18 06/14/20 History RX: Sevelamer [Renvela] 2,400 mg PO DAILY PRN 10/10/18 06/14/20 History Carvedilol [Coreg] 12.5 mg PO MOWEFR@0300 06/11/20 06/14/20 History Carvedilol [Coreg] 25 mg PO MOWEFR@1000 06/11/20 06/14/20 History Carvedilol [Coreg] 25 mg PO SUTUTHSA 06/11/20 06/14/20 History Furosemide [Lasix] 40 mg PO DAILY 06/11/20 06/14/20 History Levothyroxine Sodium [Synthroid] 50 mcg PO DAILY 06/11/20 06/14/20 History Atorvastatin Calcium [Lipitor] 20 mg PO DAILY 06/14/20 06/14/20 History Allergies Allergy/AdvReac Type Severity Reaction Status Date / Time Penicillins Allergy Anaphylaxis Verified 06/14/20 11:52 Physical Exam Vitals: Vital Signs Temp Pulse Pulse Resp BP BP Pulse Ox 06/14/20 15:40 109/58 06/14/20 15:23 96/61 06/14/20 15:09 97.8 F 81 18 83/54 97 06/14/20 13:35 71 18 108/53 99 06/14/20 12:39 77 18 122/71 100 06/14/20 11:38 97.8 F 77 18 136/72 95 Intake and Output 06/14/20 06/14/20 06/14/20 06:59 14:59 22:59 Other: Weight 97.069 kg General Appearance: Alert, cooperative, no distress, appears stated age. Neck HEENT: Supple, no lymphadenopathy Lungs: Clear to auscultation without crackles or wheezes no rhonchi Chest Wall: Chest wall normal expansion with deep inspiration no tenderness and no deformity was found on exam, no costochondral pain or discomfort. Heart: Regular rate and rhythm, S1, S2 normal, no murmur, rub or gallop. Back: Symmetric, no curvature, ROM normal, no CVA tenderness. Abdomen: Soft, non-tender, bowel sounds active all four quadrants, no masses, no organomegaly. Extremities: Extremities normal, atraumatic, no cyanosis or edema. Fistula graft in the left forearm. Pulses: 2+ and symmetric. Skin: Skin color, texture, tugor normal, no rashes or lesions. Neurologic: Alert oriented x3 cranial nerves II through XII intact, no motor deficit, no abnormal balance or gait. Results CBC & Chem 7: 06/14/20 11:38 06/14/20 11:38 Labs: Abnormal Lab Results - Last 24 Hours (Table) 06/14/20 06/14/20 06/14/20 Range/Units 11:38 11:38 11:38 RBC 4.02 L (4.30-5.90) m/uL Hgb 12.8 L (13.0-17.5) gm/dL Hct 38.3 L (39.0-53.0) % RDW 16.3 H (11.5-15.5) % Plt Count 102 L (150-450) k/uL Lymphocytes # 0.6 L (1.0-4.8) k/uL Sodium 136 L (137-145) mmol/L Chloride 96 L (98-107) mmol/L Carbon Dioxide 32 H (22-30) mmol/L Creatinine 4.36 H (0.66-1.25) mg/dL POC Glucose (mg/dL) (75-99) mg/dL Total Bilirubin 2.2 H (0.2-1.3) mg/dL Troponin I 2.620 H* (0.000-0.034) ng/mL 06/14/20 06/14/20 06/14/20 Range/Units 14:31 15:17 15:53 RBC (4.30-5.90) m/uL Hgb (13.0-17.5) gm/dL Hct (39.0-53.0) % RDW (11.5-15.5) % Plt Count (150-450) k/uL Lymphocytes # (1.0-4.8) k/uL Sodium (137-145) mmol/L Chloride (98-107) mmol/L Carbon Dioxide (22-30) mmol/L Creatinine (0.66-1.25) mg/dL POC Glucose (mg/dL) 37 L 124 H (75-99) mg/dL Total Bilirubin (0.2-1.3) mg/dL Troponin I 2.700 H* (0.000-0.034) ng/mL Thrombosis Risk Factor Assmnt - Choose All That Apply Any of the Below Risk Factors Present?: Yes Each Factor Represents 1 point: Obesity (BMI >25) Thrombosis Risk Factor Assessment Total Risk Factor Score: 1 Thrombosis Risk Factor Assessment Level: Low Risk Assessment and Plan Assessment: 1 acute coronary syndrome: With positive enzyme converted from few days ago to be very positive today patient be seen cardiology and plan for angiogram tomorrow and angioplasty if needed. 2 End-stage renal disease on hemodialysis 3 times a week which will be continued for now. 3 Hypertension: Remain on Coreg and lisinopril 10 mg daily. 4 Type 2 diabetes: Patient remain on insulin pump continue Accu-Chek sliding scales coverage for now. 5 advance cardiomyopathy: Patient remain on medication with Coreg, diuretics, a nd lisinopril. 6 Post aortic valve placement: Patient is doing well so far patient will be going for more testing in the next 24 hours. 7 A. fib with RVR: Pulse is under control currently on beta renetta with isosorbide and Ranexa. 8 hyperlipidemia: Remain on atorvastatin. 9 BPH: Watch for any urinary retention. 10 chronic edema: Continue diuretics. 11 GI prophylaxis: Patient will be on Pepcid. DVT prophylaxis: Continue anticoagulation for now. CODE STATUS: Full code. The patient to the inpatient service for more than 2 night stay.
[2020-06-14] MEDS ORDERED: MORPHINE SULFATE 2 MG/ML SYRINGE IVP PRN (22:21)
[2020-06-15 06:47] LABS: Glucose,Whole Blood 117 mg/dL (75-99)
[2020-06-15] MEDS ORDERED: ALPRAZolam 0.25 MG TAB PO PRN ×2 (07:58→14:33)
[2020-06-15] MEDS ORDERED: NITROGLYCERIN SL TABS 0.4 MG TAB SUBLINGUAL PRN ×3 (07:58→18:35)
[2020-06-15] MEDS ORDERED: SODIUM CHLORIDE 0.9% 1,000 ML in EMPTY BAG 1 BAG IV ONE ×2 (07:58→14:33)
[2020-06-15] MEDS ORDERED: ALPRAZolam 0.5 MG TAB PO PRN ×2 (07:58→14:33)
[2020-06-15 08:02] LABS: Cholesterol 115 mg/dL (<200); HDL Cholesterol 54 mg/dL (40-60); LDL Cholesterol,Calculated 48 mg/dL (0-99); Triglycerides 63 mg/dL (<150)
[2020-06-15] MEDS ORDERED: ATORVASTATIN 80 MG TAB PO STA ×2 (08:05→14:33)
[2020-06-15] MEDS ORDERED: ASPIRIN 325 MG TAB PO STA ×2 (08:05→14:33)
[2020-06-15 08:22] LABS: Mean Platelet Volume 7.9; Platelet Count 105 k/uL (150-450)
[2020-06-15] MEDS: CLOPIDOGREL 75 MG TAB PO SCH (08:38)
[2020-06-15] MEDS: LEVOTHYROXINE 50 MCG TAB PO SCH (08:39)
[2020-06-15] MEDS: SEVELAMER 800 MG TAB PO SCH ×3 (08:39→18:18)
[2020-06-15] MEDS: INSULIN PUMP MEAL BOLUS 1 UNIT MISC MISCELLANE SCH ×4 (08:39→23:08)
--- NOTE | 2020-06-15 08:42 | P.PN ---
Subjective Progress Note Date: 06/15/20 Principal diagnosis: Chest pain This is a pleasant 65-year-old gentleman with coronary artery disease and prior MCDERMOTT to LAD and stenting of the left circumflex as well as renal failure on dialysis as well as hypertension and dyslipidemia and diabetes was admitted to the hospital yesterday with a chest discomfort and ruled in for acute non-ST patient myocardial infarction. He was seen and evaluated yesterday and an echocardiogram was ordered. The plan is to pursue with a heart catheterization later on today. The patient was seen this morning. He is asymptomatic at this point and he is chest pain-free. Hemodynamically he is slightly hypotensive and because of.I'm decreasing the dose of lisinopril from 10 mg daily to 5 mg by mouth daily. Meanwhile continue the aspirin and heparin and the plan is to pursue with a heart catheterization later on today. Objective - Vital Signs Vital signs: Vital Signs Temp 98.5 F 06/15/20 08:35 Pulse 77 06/15/20 08:35 Resp 18 06/15/20 08:35 BP 98/57 06/15/20 08:35 Pulse Ox 95 06/15/20 08:35 Intake & Output 06/14/20 06/15/20 06/15/20 18:59 06:59 18:59 Intake Total 135.64 Balance 135.64 Weight 97.069 kg Intake: Intake, IV Titration 135.64 Amount Heparin Sod,Pork in 0.45% 135.64 NaCl 25,000 unit In 0.45 % NaCl 1 250ml.bag @ 10.3 UNITS/KG/HR 9.998 mls/hr IV .Q24H [facility] Rx#: [id number] - Constitutional General appearance: Present: no acute distress - Respiratory Respiratory: bilateral: CTA - Cardiovascular Rhythm: regular Heart sounds: normal: S1, S2 Abnormal Heart Sounds: Present: systolic murmur - Labs CBC & Chem 7: 06/15/20 06:22 06/14/20 11:38 Labs: Abnormal Lab Results - Last 24 Hours (Table) 06/14/20 06/14/20 06/14/20 Range/Units 11:38 11:38 11:38 RBC 4.02 L (4.30-5.90) m/uL Hgb 12.8 L (13.0-17.5) gm/dL Hct 38.3 L (39.0-53.0) % RDW 16.3 H (11.5-15.5) % Plt Count 102 L (150-450) k/uL Lymphocytes # 0.6 L (1.0-4.8) k/uL APTT (22.0-30.0) sec Sodium 136 L (137-145) mmol/L Chloride 96 L (98-107) mmol/L Carbon Dioxide 32 H (22-30) mmol/L Creatinine 4.36 H (0.66-1.25) mg/dL POC Glucose (mg/dL) (75-99) mg/dL Total Bilirubin 2.2 H (0.2-1.3) mg/dL Troponin I 2.620 H* (0.000-0.034) ng/mL 06/14/20 06/14/20 06/14/20 Range/Units 14:31 15:17 15:53 RBC (4.30-5.90) m/uL Hgb (13.0-17.5) gm/dL Hct (39.0-53.0) % RDW (11.5-15.5) % Plt Count (150-450) k/uL Lymphocytes # (1.0-4.8) k/uL APTT (22.0-30.0) sec Sodium (137-145) mmol/L Chloride (98-107) mmol/L Carbon Dioxide (22-30) mmol/L Creatinine (0.66-1.25) mg/dL POC Glucose (mg/dL) 37 L 124 H (75-99) mg/dL Total Bilirubin (0.2-1.3) mg/dL Troponin I 2.700 H* (0.000-0.034) ng/mL 06/14/20 06/14/20 06/15/20 Range/Units 18:37 18:43 00:11 RBC (4.30-5.90) m/uL Hgb (13.0-17.5) gm/dL Hct (39.0-53.0) % RDW (11.5-15.5) % Plt Count (150-450) k/uL Lymphocytes # (1.0-4.8) k/uL APTT 35.0 H (22.0-30.0) sec Sodium (137-145) mmol/L Chloride (98-107) mmol/L Carbon Dioxide (22-30) mmol/L Creatinine (0.66-1.25) mg/dL POC Glucose (mg/dL) 252 H (75-99) mg/dL Total Bilirubin (0.2-1.3) mg/dL Troponin I 2.690 H* (0.000-0.034) ng/mL 06/15/20 06/15/20 06/15/20 Range/Units 06:22 06:22 06:44 RBC (4.30-5.90) m/uL Hgb (13.0-17.5) gm/dL Hct (39.0-53.0) % RDW (11.5-15.5) % Plt Count 105 L (150-450) k/uL Lymphocytes # (1.0-4.8) k/uL APTT 45.3 H (22.0-30.0) sec Sodium (137-145) mmol/L Chloride (98-107) mmol/L Carbon Dioxide (22-30) mmol/L Creatinine (0.66-1.25) mg/dL POC Glucose (mg/dL) 117 H (75-99) mg/dL Total Bilirubin (0.2-1.3) mg/dL Troponin I (0.000-0.034) ng/mL Assessment and Plan Assessment: Assessment #1 acute coronary event. #2 known severe coronary artery disease and prior MCDERMOTT to LAD and prior stenting of the left circumflex #3 end stage renal disease on dialysis #4 hypertension #5 dyslipidemia #6 diabetes Plan #1 continue aspirin as well as heparin #2 decrease the dose of lisinopril #3 follow-up on the echo #4 proceed with coronary angiogram
[2020-06-15] MEDS: FOLIC ACID-VIT B COMPLEX-VIT C 1 CAP PO SCH (08:43)
[2020-06-15] MEDS: RANOLAZINE 500 MG TAB.ER.12H PO SCH (08:44)
[2020-06-15] MEDS: lisinopriL 10 MG TAB PO SCH (08:44)
[2020-06-15] MEDS ORDERED: ISOSORBIDE MONONITRATE ER 60 MG TAB.ER.24H PO SCH (09:00)
[2020-06-15] MEDS ORDERED: carvediloL 12.5 MG TAB PO SCH (09:00)
[2020-06-15] MEDS ORDERED: lisinopriL 5 MG TAB PO SCH (09:00)
[2020-06-15] MEDS ORDERED: FUROSEMIDE 40 MG TAB PO SCH (09:00)
[2020-06-15 11:11] LABS: Glucose,Whole Blood 80 mg/dL (75-99)
[2020-06-15 12:02] LABS: Glucose,Whole Blood 94 mg/dL (75-99)
--- NOTE | 2020-06-15 12:37 | P.PN ---
Subjective Progress Note Date: 06/15/20 HISTORY OF PRESENT ILLNESS 65-year-old male one of my office patient who seen cardiology regular basis laura golden to have history of coronary disease post bypass surgery with MCDERMOTT to the LAD and [place] the graft on the left circumflex artery. Patient also with dialysis the times a week and has been doing well till few days earlier when he developed to have significant chest pain with exertion associated with significant shortness of breath ended up coming to the emergency department tested and cardiac enzymes were negative patient ended up being discharged home to see cardiology as an outpatient. Hardly finish dialysis today with patient developed to have significant midsternal chest point and along with nausea without vomiting and had significant lightheadedness. Patient ended up coming mers department at [facility] where was seen his CK was significantly elevated originally and the total was 2.70. Patient will be kept on heparin drip seeing cardiology and plan for heart catheter based on current symptoms. 06/15: Patient remains in the ER waiting for a cardiac stepdown bed. He has been seen by cardiology and continued on aspirin and heparin, lisinopril decreased. He is scheduled for heart catheterization this afternoon. He is also scheduled for hemodialysis tomorrow. Echocardiogram report is pending. Patient has been afebrile, heart rate 77, blood pressure 98/57, pulse ox 95% on 2 L nasal cannula. Troponins have been 2.62, 2.7, 2.69. REVIEW OF SYSTEMS CONSTITUTIONAL: Well-developed no acute respiratory distress. No fever. EYES: No icterus sclerae, no conjunctivitis. EARS, NOSE, MOUTH, THROAT, and FACE: No sore throat, lymphadenopathy, carotid bruits or deformity. RESPIRATORY: Positive shortness of breath and chest pain with mild cough or wheezes. CARDIOVASCULAR: Positive PND orthopnea and palpitation. GASTROINTESTINAL: Positive abdominal discomfort with nausea no vomiting no diarrhea this point. GENITOURINARY: Decrease urine output on hemodialysis no sign of infection. INTEGUMENT/BREAST: Negative for any muscular injury with mild osteoarthritis.. HEMATOLOGIC/LYMPHATIC: Negative for bleed or purpura. MUSCULOSKELTAL: Negative for Myalgia or arthralgia. NEURLOGICAL: No LOC, Sz or syncope, blurred vision dizziness or abnormality.. BEHAVIORAL/PSYCH: Negative. ENDOCRINE: Negative. PHYSICAL EXAMINATION General Appearance: Alert, cooperative, no distress, appears stated age. Patient is resting on the ER stretcher. Neck HEENT: Supple, no lymphadenopathy Lungs: Clear to auscultation without crackles or wheezes no rhonchi Chest Wall: Chest wall normal expansion with deep inspiration no tenderness and no deformity was found on exam, no costochondral pain or discomfort. Heart: Regular rate and rhythm, S1, S2 normal, no murmur, rub or gallop. Back: Symmetric, no curvature, ROM normal, no CVA tenderness. Abdomen: Soft, non-tender, bowel sounds active all four quadrants, no masses, no organomegaly. Extremities: Extremities normal, atraumatic, no cyanosis or edema. Fistula graft in the left forearm. Pulses: 2+ and symmetric. Skin: Skin color, texture, tugor normal, no rashes or lesions. Neurologic: Alert oriented x3 cranial nerves II through XII intact, no motor deficit, no abnormal balance or gait. ASSESSMENT AND PLAN 1 acute coronary syndrome, acute non-ST elevated myocardial infarction. Continue heparin. Patient is scheduled for cardiac catheterization this afternoon with Dr. Cordero. 2 End-stage renal disease on hemodialysis 3 times a week which will be continued for now. 3 Hypertension: Remain on Coreg and lisinopril decreased to 5 mg daily. 4 Type 2 diabetes: Patient remain on insulin pump continue Accu-Chek sliding scales coverage for now. 5 advance cardiomyopathy: Patient remain on medication with Coreg, diuretics, and lisinopril. 6 Post aortic valve placement: Patient is doing well so far patient will be going for more testing in the next 24 hours. 7 frequent PVCs: Pulse is under control currently on beta renetta with isosorbide and Ranexa. 8 hyperlipidemia: Remain on atorvastatin. 9 BPH: Watch for any urinary retention. 10 chronic edema: Continue diuretics. 11 GI prophylaxis: Patient will be on Pepcid. DVT prophylaxis: Continue anticoagulation for now. CODE STATUS: Full code. DISCHARGE PLAN Home tomorrow. Impression and plan of care have been directed as dictated by the signing physician. Tomasa Atkins nurse practitioner acting as scribe for signing physician. Objective - Vital Signs Vital signs: Vital Signs Temp 98.5 F 06/15/20 08:35 Pulse 77 06/15/20 08:35 Resp 18 06/15/20 08:35 BP 98/57 06/15/20 08:35 Pulse Ox 95 06/15/20 08:35 Intake & Output 06/14/20 06/15/20 06/15/20 18:59 06:59 18:59 Intake Total 135.64 Balance 135.64 Weight 97.069 kg Intake: Intake, IV Titration 135.64 Amount Heparin Sod,Pork in 0.45% 135.64 NaCl 25,000 unit In 0.45 % NaCl 1 250ml.bag @ 10.3 UNITS/KG/HR 9.998 mls/hr IV .Q24H [facility] Rx#: [id number] - Labs CBC & Chem 7: 06/15/20 06:22 06/14/20 11:38 Labs: Abnormal Lab Results - Last 24 Hours (Table) 06/14/20 06/14/20 06/14/20 Range/Units 11:38 11:38 11:38 RBC 4.02 L (4.30-5.90) m/uL Hgb 12.8 L (13.0-17.5) gm/dL Hct 38.3 L (39.0-53.0) % RDW 16.3 H (11.5-15.5) % Plt Count 102 L (150-450) k/uL Lymphocytes # 0.6 L (1.0-4.8) k/uL APTT (22.0-30.0) sec Sodium 136 L (137-145) mmol/L Chloride 96 L (98-107) mmol/L Carbon Dioxide 32 H (22-30) mmol/L Creatinine 4.36 H (0.66-1.25) mg/dL POC Glucose (mg/dL) (75-99) mg/dL Total Bilirubin 2.2 H (0.2-1.3) mg/dL Troponin I 2.620 H* (0.000-0.034) ng/mL 06/14/20 06/14/20 06/14/20 Range/Units 14:31 15:17 15:53 RBC (4.30-5.90) m/uL Hgb (13.0-17.5) gm/dL Hct (39.0-53.0) % RDW (11.5-15.5) % Plt Count (150-450) k/uL Lymphocytes # (1.0-4.8) k/uL APTT (22.0-30.0) sec Sodium (137-145) mmol/L Chloride (98-107) mmol/L Carbon Dioxide (22-30) mmol/L Creatinine (0.66-1.25) mg/dL POC Glucose (mg/dL) 37 L 124 H (75-99) mg/dL Total Bilirubin (0.2-1.3) mg/dL Troponin I 2.700 H* (0.000-0.034) ng/mL 06/14/20 06/14/20 06/15/20 Range/Units 18:37 18:43 00:11 RBC (4.30-5.90) m/uL Hgb (13.0-17.5) gm/dL Hct (39.0-53.0) % RDW (11.5-15.5) % Plt Count (150-450) k/uL Lymphocytes # (1.0-4.8) k/uL APTT 35.0 H (22.0-30.0) sec Sodium (137-145) mmol/L Chloride (98-107) mmol/L Carbon Dioxide (22-30) mmol/L Creatinine (0.66-1.25) mg/dL POC Glucose (mg/dL) 252 H (75-99) mg/dL Total Bilirubin (0.2-1.3) mg/dL Troponin I 2.690 H* (0.000-0.034) ng/mL 06/15/20 06/15/20 06/15/20 Range/Units 06:22 06:22 06:44 RBC (4.30-5.90) m/uL Hgb (13.0-17.5) gm/dL Hct (39.0-53.0) % RDW (11.5-15.5) % Plt Count 105 L (150-450) k/uL Lymphocytes # (1.0-4.8) k/uL APTT 45.3 H (22.0-30.0) sec Sodium (137-145) mmol/L Chloride (98-107) mmol/L Carbon Dioxide (22-30) mmol/L Creatinine (0.66-1.25) mg/dL POC Glucose (mg/dL) 117 H (75-99) mg/dL Total Bilirubin (0.2-1.3) mg/dL Troponin I (0.000-0.034) ng/mL
[2020-06-15] MEDS: NITROGLYCERIN-D5W PMX 50 MG in DEXTROSE/WATER 1 250ML.BAG IV SCH (13:33)
[2020-06-15] MEDS: HEPARIN SOD,PORK IN 0.45% NACL 25,000 UNIT in 0.45% NACL 1 250ML.BAG IV SCH (16:07)
[2020-06-15] MEDS ORDERED: HYDROmorphone 0.5 MG/0.5 ML SYRINGE IVP STA (16:45)
[2020-06-15] MEDS ORDERED: HYDROmorphone 0.5 MG/0.5 ML SYRINGE ONE (16:46)
[2020-06-15] MEDS ORDERED: SODIUM CHLORIDE 0.9% 1,000 ML IV ONE ×4 (17:40→22:00)
[2020-06-15] MEDS ORDERED: fentaNYL (PF) 50 MCG/ML 2 ML AMP ONE ×2 (17:48→19:50)
[2020-06-15] MEDS ORDERED: LIDOCAINE 1% INJ 10MG/ML (20 ML MDV) SQ ONE (17:53)
--- NOTE | 2020-06-15 18:01 | CONS ---
CONSULTATION REASON FOR CONSULT: End-stage renal disease. HISTORY OF PRESENT ILLNESS: Patient is a 65-year-old male with end-stage renal disease, on hemodialysis on a Sunday, Sunday, Sunday schedule at the [facility]. He was admitted to the hospital with complaints of chest pain. He has significant cardiovascular disease with history of coronary artery disease and valvular heart disease. He is scheduled for cardiac catheterization today. His troponin was elevated at 2.69 and 2.7 ng/mL. The patient did have his regular treatment yesterday. He denies any fevers, chills, nausea, vomiting or abdominal pain. PAST MEDICAL HISTORY: End-stage renal disease, coronary artery disease, hypertension, CKD mineral bone disorder, type 2 diabetes, hyperlipidemia, [place], osteoarthritis, peripheral vascular disease, history of left ocular palsy. PAST SURGICAL HISTORY: Valvular heart surgery, aortic valve replacement, porcine valve, coronary stents, coronary artery bypass surgery, umbilical hernia repair, colonoscopy, cataract surgery, thyroid surgery; details not known. SOCIAL HISTORY: Negative for smoking, drug abuse or alcohol abuse. Patient has a remote history of smoking. MEDICATIONS: Medications prior to admission included insulin, Ranexa, Zestril, Imdur, Renvela, Plavix, Coreg, Lasix, Lipitor, Synthroid. ALLERGIES: ALLERGIES include PENICILLIN, which causes anaphylaxis. REVIEW OF SYSTEMS: As per HPI. Other systems negative. PHYSICAL EXAMINATION: Patient is comfortable, awake, alert, oriented x3, not in any acute distress. Blood pressure 98/57, heart rate 77 per minute. He is afebrile. EXAMINATION OF THE HEART: S1 and S2. EXAMINATION OF LUNGS: Bilateral breath sounds are heard. ABDOMEN: Soft, non-tender, obese. Examination of lower extremities shows no significant edema. WAITER/WAITRESS BAR exam is grossly intact. LABS: Troponin 2.69, potassium 4.1, sodium 136, hemoglobin 12.8 g/dL. ASSESSMENT: 1. End-stage renal disease, on hemodialysis on a Sunday, Sunday, Sunday schedule via right arm AV fistula. 2. Acute myocardial infarction, scheduled for cardiac catheterization today. Clinically and hemodynamically stable. 3. Coronary artery disease with history of coronary artery bypass surgery and coronary stent placements. 4. Chronic kidney disease mineral bone disorder. 5. Dyslipidemia. 6. Type 2 diabetes. 7. Hypertension, currently controlled. Continue with JELLY inhibitors, although blood pressure remains on the lower side. PLAN: Hemodialysis in a.m. Add parameters for antihypertensive medications. Thank you for this consultation. Will continue to follow the patient with you during his hospitalization. [place] / CH[place]YN: [id number] /
[2020-06-15] MEDS ORDERED: HEPARIN SODIUM 1,000 UN/ML (10ML VL) ONE (18:04)
[2020-06-15] MEDS ORDERED: IOPAMIDOL-370 125ML BTL INJ ONE (18:13)
[2020-06-15] MEDS: INSULIN LISPRO (For Pump) 100 UNIT/ML VIAL SQ-PUMP SCH (18:21)
[2020-06-15] MEDS ORDERED: IOPAMIDOL-370 100ML BTL INJ ONE (18:23)
[2020-06-15] MEDS ORDERED: RX INFO: IV CONTRAST WAS GIVEN 1 EACH MISC MISCELLANE PRN (18:35)
[2020-06-15] MEDS ORDERED: ZOLPIDEM 5 MG TAB PO PRN (18:35)
[2020-06-15] MEDS ORDERED: MAG HYDROX/AL HYDROX/SIMETH 30 ML CUP PO PRN (18:35)
[2020-06-15] MEDS ORDERED: ATROPINE SULFATE 0.1 MG/ML 10ML SYRINGE IV PRN (18:35)
[2020-06-15] MEDS ORDERED: SODIUM BICARB 8.4% 50 ML SYR (1 MEQ/ML) ONE ×2 (18:45→18:49)
[2020-06-15] MEDS ORDERED: CALCIUM CHLORIDE 100 MG/ML 10 ML SYRINGE ONE (18:45)
[2020-06-15] MEDS ORDERED: EPINEPHrine 10 ML SYRINGE (0.1 MG/ML) ONE (18:45)
[2020-06-15] MEDS ORDERED: SODIUM CHLORIDE 0.9% 1,000 ML IV SCH (18:45)
[2020-06-15 19:04] LABS: Glucose,Whole Blood 226 mg/dL (75-99)
[2020-06-15 19:22] LABS: Glucose,Whole Blood 193 mg/dL (75-99)
[2020-06-15] MEDS ORDERED: propofoL 100 ML IV ONE (19:24)
[2020-06-15 19:44] LABS: Basophils # (A) 0.1 k/uL (0-0.2); Basophils % (A) 1 %; Eosinophils # (A) 0.1 k/uL (0-0.7); Eosinophils % (A) 2 %; HCT 34.9 % (39.0-53.0); HGB 11.5 gm/dL (13.0-17.5); Hypochromasia Slight; Lymphocytes % (A) 21 %; MCH 32.6 pg (25.0-35.0); MCHC 32.9 g/dL (31.0-37.0); Macrocytosis Slight; Mean Platelet Volume 8.7; Monocytes # (A) 0.3 k/uL (0-1.0); Monocytes % (A) 7 %; Neutrophils # (A) 3.2 k/uL (1.3-7.7); Neutrophils % (A) 66 %; RBC 3.53 m/uL (4.30-5.90); WBC 4.8 k/uL (3.8-10.6)
[2020-06-15] MEDS ORDERED: fentaNYL (PF) 50 MCG/ML 2 ML AMP IVP PRN (19:50)
--- NOTE | 2020-06-15 19:53 | P.EN ---
CODE BLUE NOTE Code Called at 1847. Arrived to find CPR in Progress. 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 He lost pulses and CPR started. Dr. Cordero at bedside and updated . PEA was initial rhythm noted on monitor, Epi X 2, bicarb, V fib on monitor Defib, then PEA on monitor epi X 2 with calcium and bicarb. ROSC with SVT and initial BP 202/99. Patient moving and trying to pull at tube. OG inserted with feculent material noted. For further details see code blue note. Total down time 11 minutes. BS check 226. Stared on bicard gtt, CBC, CMP, mg, phos, trop, pt/ptt EKG ordered. Dr. Bains updated over phone. Consult to Dr. Umanzor awaiting call back. update by myself over phone. DX: PEA, cardiac arrest with ROSC DM on insulin pump- pump removed SSI q 6 hour accucheck ordered. BP decreased started on levophed, awaiting ABG Critical care time 45 minutes
[2020-06-15] MEDS ORDERED: EPINEPHrine 10 ML SYRINGE (0.1 MG/ML) IV ONE (19:55)
[2020-06-15] MEDS: NOREPINEPHRINE 4 MG in SODIUM CHLORIDE 0.9% 250 ML IV SCH (19:55)
[2020-06-15 19:57] LABS: Albumin 3.3 g/dL (3.5-5.0); Calcium 7.9 mg/dL (8.4-10.2); Magnesium 2.4 mg/dL (1.6-2.3); Phosphorus 6.4 mg/dL (2.5-4.5); Potassium 5.5 mmol/L (3.5-5.1); Total Bilirubin 2.6 mg/dL (0.2-1.3); Total Protein 6.1 g/dL (6.3-8.2)
--- NOTE | 2020-06-15 20:21 | XR ---
EXAMINATION TYPE: XR chest 1V portable DATE OF EXAM: 06/15/2020 COMPARISON: Yesterday HISTORY: Check tube placement TECHNIQUE: FINDINGS: Endotracheal tube is 3.5 cm from the álvaro. There is pulmonary interstitial and airspace e pawan. There are chest leads. There is nasogastric tube in the stomach. IMPRESSION: There is increased pulmonary edema compared to yesterday that could be acute heart failur e.
[2020-06-15 20:29] LABS: Platelet Count 72 k/uL (150-450)
[2020-06-15] MEDS ORDERED: LIDOCAINE 2% (PF) 20 MG/ML 5 ML VIAL ONE (20:38)
[2020-06-15 21:09] LABS: ABG HCO3 27 mmol/L (21-25); ABG Oxygen Saturation 99.2 % (94-97); ABG PCO2 44 mmHg (35-45); ABG PH 7.39 (7.35-7.45); ABG PO2 257 mmHg (83-108); ABG TCO2 28 mmol/L (19-24); Allen Test Performed? Yes
[2020-06-15] MEDS ORDERED: CISATRACURIUM 2 MG/ML 5 ML VIAL IV ONE ×4 (21:40→22:16)
[2020-06-15] MEDS: SODIUM CHLORIDE 0.9% 150 ML with VASOPRESSIN 60 UNIT IV SCH ×2 (22:09)
[2020-06-15] MEDS: CISATRACURIUM 200 MG in SODIUM CHLORIDE 0.9% 180 ML IV SCH (22:20)
[2020-06-15] MEDS: DEXTROSE 5% IN WATER 1,000 ML with SODIUM BICARB (1 MEQ/ML) 150 ML IV SCH ×2 (22:44→23:58)
[2020-06-15] MEDS ORDERED: EPINEPHrine 1 MG/ML 1 ML AMP IV ONE (23:00)
[2020-06-15] MEDS: EPINEPHrine 1 MG/ML 1 ML AMP IV SCH (23:31)
[2020-06-15] MEDS: NOREPINEPHRINE 32 MG in SODIUM CHLORIDE 0.9% 218 ML IV SCH (23:31)
[2020-06-15] MEDS: IPRATROPIUM-ALBUTEROL 3 ML NEB INHALATION SCH (23:51)
[2020-06-15 23:52] LABS: Glucose,Whole Blood 287 mg/dL (75-99)
[2020-06-15] MEDS: INSULIN ASPART (NovoLOG) 100 UNIT/ML VIAL SQ SCH (23:58)
--- NOTE | 2020-06-16 00:03 | XR ---
EXAMINATION TYPE: XR chest 1V portable DATE OF EXAM: 06/15/2020 COMPARISON: 06/15/2020 HISTORY: Tube placement TECHNIQUE: FINDINGS: Endotracheal tube is 2.5 cm from the álvaro. There is moderate pulmonary edema. There is na sogastric tube in the stomach. There are chest leads. There is left side central venous catheter with tip in the superior vena cava. IMPRESSION: There is pulmonary edema unchanged. Tubing in fairly good position.
[2020-06-16] MEDS: NOREPINEPHRINE 4 MG in SODIUM CHLORIDE 0.9% 250 ML IV SCH (00:47)
[2020-06-16] MEDS ORDERED: INSULIN REGULAR 100 UNIT/ML VIAL IV ONE ×2 (01:03→01:15)
[2020-06-16] MEDS: DEXTROSE 50% SYRINGE 50 ML IVP STA ×2 (01:36→16:34)
[2020-06-16] MEDS ORDERED: carvediloL 12.5 MG TAB PO SCH ×3 (03:00→10:00)
--- NOTE | 2020-06-16 03:52 | CC ---
CARDIAC CATHETERIZATION REPORT Mr. Rosales is a 65-year-old male with known of coronary artery disease, status post coronary artery bypass grafting, aortic valve replacement, history of end-stage renal disease on hemodialysis who presented with symptoms of chest discomfort and evidence of non ST-segment elevation myocardial infarction. The patient had recurrent episode of chest discomfort and in view of that, recommendation was made regarding cardiac catheterization. The procedure as well as the risks, and the complications were discussed with the patient who is in full understanding and agreement. PROCEDURE: Patient was brought to labor relations consultant in a fasting semi-sedated state after receiving Benadryl and achieving moderate conscious sedated state. Using Xylocaine anesthesia and the Seldinger technique, a 6-Portuguese sheath was introduced in the right femoral artery. Selective right and left coronary angiography were performed using 6-Portuguese 4 bend right Antonio and 6-Portuguese 4.5 bend left Antonio catheter. Multiple views of the coronary artery including hemiaxial views were obtained. The right Antonio catheter was used to cannulate the MCDERMOTT to the LAD and images of the graft were obtained. Following that catheter removed. Images were reviewed. FINDINGS: FLUOROSCOPY: There was severe calcification involving all the coronary arteries. LEFT MAIN: This is a short size vessel, bifurcating into left circumflex, left anterior descending artery. Left main coronary artery has no evidence of high-grade stenosis. LEFT ANTERIOR DESCENDING ARTERY: This vessel is totally occluded mid segment. There is no significant antegrade flow beyond that. The proximal vessel has diffuse intimal disease with an area of stenosis of 70% to 80%. LEFT CIRCUMFLEX: This vessel is stented in the proximal segment. The stents are patent with mild intimal restenosis of 40% to 50%. Following takeoff of small obtuse marginal branch, the vessel is totally occluded with no significant antegrade flow. RIGHT CORONARY ARTERY: This is a large dominant vessel bifurcating into PDA and posterolateral segment and branches. The proximal right coronary artery has an 80% stenosis in mid RCA has intimal disease of 20% to 30%. The rest of the vessel has diffuse intimal disease without any evidence of high-grade stenosis. MCDERMOTT to LAD: The distal anastomotic site is patent. The flow into the LAD is brisk. There is no evidence of high-grade stenosis. There is retrograde filling into a diagonal branch. LEFT VENTRICULOGRAM: Left ventriculogram was not performed. CONCLUSION: 1. Chronic occluded left anterior descending artery and the left circumflex. 2. Patent MCDERMOTT to LAD. 3. Significant stenosis in the proximal left circumflex. RECOMMENDATION: In view of finding anatomy, I recommend proceeding with angioplasty and stenting of the right coronary artery. The procedure as well as the risks and complications were discussed with the patient who is in full understanding and agreement. MMTIAN / CHERRYN: [id number] /
[2020-06-16] MEDS: IPRATROPIUM-ALBUTEROL 3 ML NEB INHALATION SCH ×5 (03:54→20:39)
--- NOTE | 2020-06-16 04:07 | PTCA ---
PERCUTANEOUSTRANS CORORONARY ANGIOGRAPHY Mr. Rosales is a 65-year-old male who presented with non ST segment elevation myocardial infarction, underwent cardiac catheterization, was found to have critical stenosis involving the right coronary artery. In view of that, recommendation was made regarding angioplasty and stenting. The procedure as well as the risks and complications were discussed with the patient who is in full understanding and agreement. PROCEDURE: A 6-Setswana FR4 guiding catheter introduced in the system. After cannulating the right coronary ostium, a 0.014 balanced medium weight J-wire was advanced across the lesion positioned distally then a 2.5 x 12 mm NC Trek balloon was advanced and one inflation at 10 atmospheres was done. Following that, the balloon was removed and another 0.014 balanced medium weight J-wire was advanced next to the first one in a caryl fashion. Following that, a 2.5 x 15 mm Xience Ashley stent was advanced and post dilated to 16 atmospheres. After the last inflation, after appropriate wait, the balloon and the guidewire was withdrawn back in the guiding catheter. Images were obtained, repeated. Those images reveal stable successful stenting. At that point, the guiding catheter, the balloon and the guidewire were removed. The sheath was removed hemostasis was obtained with deployment of an Angio-Seal. There was no immediate complication. The patient is returned to his room in stable condition. Of note, the patient received a total of 7000 units of intravenous heparin. He was continued on clopidogrel. His ACT was monitored. At the end procedure, his chest discomfort was better. RESULTS: Successful stenting of the proximal right coronary artery with reduction of stenosis from 80% to 0%. RECOMMENDATION: Patient will be continued on aspirin, Plavix, statin and aggressive coronary risk modification. Those findings and recommendations were discussed with the patient and he is full understanding and agreement. Duration of sedation is 31 minutes. MMODL / IJN: [id number] /
--- NOTE | 2020-06-16 04:12 | LTR ---
June 15, 2020 Re: Master Rosales Dear Dr. Bains: I had the opportunity to perform cardiac catheterization on Mr. Rosales on the 15 of June and a full copy of this procedure note will be forwarded to you. In brief, he was found to have critical stenosis involving the proximal right coronary artery with patent MCDERMOTT to LAD. He underwent successful stenting of the proximal right coronary artery. I am hopeful that this procedure will stabilize his status. Thank you again for allowing me the opportunity to participate in his care. Please feel free to call for any questions. Sincerely yours, Gio Cordero MD MMCHARLESL / CHERRYN: [id number] /
[2020-06-16 05:11] LABS: ABG Base Excess 4.1 mmol/L; ABG HCO3 28 mmol/L (21-25); ABG PCO2 42 mmHg (35-45); ABG PH 7.44 (7.35-7.45); ABG PO2 119 mmHg (83-108); ABG TCO2 30 mmol/L (19-24); Allen Test Performed? Yes
[2020-06-16 05:55] LABS: Calcium 7.5 mg/dL (8.4-10.2); Potassium 5.4 mmol/L (3.5-5.1); Total Bilirubin 1.7 mg/dL (0.2-1.3); Total Protein 5.4 g/dL (6.3-8.2)
[2020-06-16 06:33] LABS: Glucose,Whole Blood 335 mg/dL (75-99)
[2020-06-16 06:34] LABS: Anisocytosis Slight; Basophils % (A) 0 %; Eosinophils % (A) 0 %; HCT 36.1 % (39.0-53.0); HGB 11.5 gm/dL (13.0-17.5); Hypochromasia Slight; Lymphocytes # (A) 0.6 k/uL (1.0-4.8); Lymphocytes % (A) 8 %; MCH 31.3 pg (25.0-35.0); MCHC 31.8 g/dL (31.0-37.0); MCV 98.3 fL (80.0-100.0); Macrocytosis Slight; Mean Platelet Volume 8.7; Monocytes # (A) 0.5 k/uL (0-1.0); Monocytes % (A) 7 %; Neutrophils # (A) 6.1 k/uL (1.3-7.7); Neutrophils % (A) 83 %; RBC 3.67 m/uL (4.30-5.90); RDW 16.2 % (11.5-15.5); WBC 7.4 k/uL (3.8-10.6)
[2020-06-16] MEDS: INSULIN PUMP MEAL BOLUS 1 UNIT MISC MISCELLANE SCH (06:35)
[2020-06-16] MEDS: SEVELAMER 800 MG TAB PO SCH ×3 (06:36→16:23)
[2020-06-16 06:44] LABS: Platelet Count 120 k/uL (150-450)
[2020-06-16] MEDS: INSULIN ASPART (NovoLOG) 100 UNIT/ML VIAL SQ SCH ×2 (06:45)
[2020-06-16] MEDS: LEVOTHYROXINE 50 MCG TAB PO SCH (06:45)
--- NOTE | 2020-06-16 07:14 | XR ---
EXAMINATION TYPE: XR chest 1V portable DATE OF EXAM: 06/16/2020 Comparison: 06/15/2020 Clinical History: 65-year-old male Tube placement Findings: ET tube satisfactory. NG tube courses below the diaphragm. Left CVC tip at the lower SVC. Heart remai ns mildly enlarged. Diffuse interstitial and perihilar opacities persist as well as patchy retrocardi ac opacity without significant change. Impression: Stable findings suggestive of CHF and mild interstitial pulmonary edema. Patchy retrocardiac opacity probably atelectasis.
--- NOTE | 2020-06-16 07:29 | CONS ---
CONSULTATION PULMONARY/CRITICAL CARE CONSULTATION: DATE OF CONSULTATION: June 15, 2020 at 10:20 p.m. REASON FOR CONSULTATION: ICU management. This is a 65-year-old male who presented to the emergency department with chief complaint of chest pain. The patient apparently started having pain when he walked out of the dialysis unit. Apparently, the patient had a normal dialysis run and then apparently towards the end or when he was leaving dialysis, developed chest discomfort. The patient does have a history of underlying coronary artery disease including bypass grafting with multiple stents. Anyway, the patient was seen in the emergency room and admitted with acute coronary syndrome. A non- ST-segment elevation myocardial infarction. Apparently sometime after the catheterization which apparently included a stent and a stent was placed. I believe the stent went to the right coronary artery. Anyway, the patient soon thereafter apparently had a cardiac arrest. A Code Blue was called and the patient had resuscitation and eventual return of spontaneous circulation and was transferred here to the ICU. Currently, he is on the ventilator. Currently, he is on maximal dose of Levophed, vasopressin was started. The patient just had a left radial art line placed by myself and a left internal jugular triple-lumen catheter placed by myself. Currently, his overall status is very guarded/poor. He is on maximal dose Levophed as I mentioned. His blood pressure is barely acceptable. Blood gases were reasonable. FiO2 was dropped down to 70%. HOME MEDICATIONS: His home medications included insulin, Ranexa, Zestril, Imdur, Plavix, Renvela, Coreg, Lasix, Synthroid, and Lipitor. ALLERGIES: PENICILLIN. MEDICAL HISTORY: Medical history includes coronary artery disease, angina pectoris, heart failure, diabetes mellitus, hyperlipidemia, hypertension, myocardial infarction, DJD, end-stage renal disease, currently on Sunday, Sunday, Sunday hemodialysis, diabetic neuropathy, anemia, arthritis, and left eye palsy. SURGICAL HISTORY: Surgical history includes aortic valve replacement, bypass grafting, heart catheterization with stent, AV fistula in the right forearm, CABG surgery x2, umbilical hernia repair, colonoscopy, cataract surgery with lens implants, and thyroid surgery. SOCIAL HISTORY: Social history is negative for tobacco use. Also denies any alcohol use or illicit drug use. FAMILY HISTORY: Family history is positive for a mother with cancer and a father with a history of no major medical problems. REVIEW OF SYSTEMS: Cannot be obtained. PHYSICAL EXAMINATION: VITAL SIGNS: Current vital signs are reviewed. His temperature is 98.7, heart rate 75, respiratory rate 19, blood pressure 93/63 with mean of 73 and saturations are 100%. GENERAL: Currently, appears sedated. He is also paralyzed. HEENT: Examination is grossly unremarkable. There is an orally placed endotracheal tube and NG tube. NECK: Supple. CARDIOVASCULAR: Examination reveals regular rhythm and rate. Heart rate currently is about 100 beats per minute. LUNGS: Reveal coarse rhonchi. Breath sounds equal. ABDOMEN: Soft. No bowel sounds. EXTREMITIES: Are intact. No edema. SKIN: Without rash. NEUROLOGIC: Examination cannot be adequately assessed. Chest x-ray done after the cardiopulmonary arrest reveals a well placed endotracheal tube. It is above the tracheal álvaro. The NG tube was in the stomach. The chest x- ray shows diffuse bilateral infiltrates with mild cardiomegaly consistent with fluid overload. LAB DATA: Lab data is reviewed. White count 4.8, hemoglobin 11.5, hematocrit 34.9, platelet count 72,000. Most recent blood gases show pO2 of 257, pCO2 of 44 and pH 7.39. That was on 100% FiO2. FiO2 was dropped to 70%. Sodium 135, potassium 5.5, chloride 96, CO2 of 27. Anion gap is 12. BUN and creatinine were 41 and 7.23. Lactic acid 4.2. Calcium 7.9. The rest of the labs are so noted. CURRENT MEDICATIONS: Current medications are reviewed. He is on Levophed at maximal doses and vasopressin was started by myself. He will also be given Nimbex with a drip at 2 mcg/kg per minute with TOF monitoring. Unnecessary medications will be reviewed and discontinued. Additional recommendations and suggestions as it relates to medications it will be noted. ASSESSMENT: 1. Status post cardiopulmonary arrest after cardiac catheterization. 2. Profound hypotension, currently on maximal Levophed and vasopressin. 3. Status post left radial arterial line placement and left internal jugular triple- lumen line placement. 4. History of previous aortic valve replacement and bypass grafting x2. 5. History of coronary artery disease. 6. Diabetes with diabetic neuropathy. 7. History of angina pectoris. 8. Hyperlipidemia. 9. Hypertension. 10.Previous myocardial infarction. 11.End-stage renal disease, currently on Sunday, Sunday, Sunday hemodialysis. 12.Chronic anemia. 13.Multiple other medical problems and comorbidities. PLAN: Overall prognosis remains guarded. Lines were placed. The patient is currently on maximal Levophed and vasopressin. The patient will receive propofol for sedation and also a paralysis with cisatracurium or Nimbex. We will make sure the patient is on updrafts q.4. Additional recommendations and suggestions are forthcoming. Prognosis is guarded. MMODL / IJN: [id number] / MTDD
[2020-06-16] MEDS: NOREPINEPHRINE 32 MG in SODIUM CHLORIDE 0.9% 218 ML IV SCH (07:32)
[2020-06-16] MEDS ORDERED: INSULIN REGULAR BOLUS (FROM DRIP BAG) IV PRN (08:20)
[2020-06-16] MEDS: ATORVASTATIN 80 MG TAB PO SCH (08:29)
[2020-06-16] MEDS: ASPIRIN 81 MG PO SCH (08:29)
[2020-06-16] MEDS: CLOPIDOGREL 75 MG TAB PO SCH (08:29)
[2020-06-16] MEDS: FOLIC ACID-VIT B COMPLEX-VIT C 1 CAP PO SCH (08:30)
[2020-06-16] MEDS: RANOLAZINE 500 MG TAB.ER.12H PO SCH (08:30)
[2020-06-16] MEDS ORDERED: ATORVASTATIN 20 MG TAB PO SCH (09:00)
[2020-06-16] MEDS ORDERED: CHLORHEXIDINE GLUCONATE 15 ML CUP MUCOUS MEM SCH (09:00)
[2020-06-16] MEDS ORDERED: ASPIRIN 325 MG TAB PO SCH (09:00)
[2020-06-16] MEDS: INSULIN REGULAR 100 UNIT in SODIUM CHLORIDE 0.9% 100 ML IV SCH (09:03)
[2020-06-16 09:04] LABS: Glucose,Whole Blood 272 mg/dL (75-99)
--- NOTE | 2020-06-16 10:10 | ECHOF ---
Referral Reason:mi MEASUREMENTS -------- HEIGHT: 175.3 cm WEIGHT: 97.1 kg BP: 120/49 IVSd: 1.5 cm (0.6 - 1.1) LVIDd: 4.6 cm (3.9 - 5.3) LVPWd: 1.9 cm (0.6 - 1.1) IVSs: 1.6 cm LVIDs: 3.9 cm LVPWs: 1.8 cm FINDINGS -------- This was a technically difficult study with suboptimal views. Limited Study The left ventricular size is normal. There is severe concentric left ventricular hypertrophy. Ove rall left ventricular systolic function is moderate-severely impaired with, an EF between 30 - 35 %. 5.0mg OF Lumason UTLIZED: 2 OR MORE WALL SEGMENTS NOT VISUALIZED. CONCLUSIONS -------- 1. The left ventricular size is normal. 2. There is severe concentric left ventricular hypertrophy. 3. Overall left ventricular systolic function is moderate-severely impaired with, an EF between 30 - 35 %. SUPERVISOR ALUMINUM FABRICATION: Rocio Hooker [facility]
[2020-06-16 10:32] LABS: Glucose,Whole Blood 303 mg/dL (75-99)
--- NOTE | 2020-06-16 10:45 | P.PN ---
Subjective Progress Note Date: 06/16/20 Principal diagnosis: The patient is seen today in follow-up in the intensive care unit. He was admitted to the hospital after developing chest pain following dialysis. He presented to the emergency room and found to have an acute coronary syndrome with a non-ST segment elevation myocardial infarction. He had gone to the [facility] and had a stent placed to the right coronary artery. Soon after that he had a cardiac arrest and had approximately 12 minutes of resuscitation. He did have return of spontaneous circulation. He is seen today in follow-up. He remains intubated on mechanical ventilator. Current settings assist-control of 18, tidal volume 500, FiO2 40% and a PEEP of 5. Arterial blood gases drawn this morning on 50% FiO2 revealed a pCO2 of 119, CO2 42, pH 7.43. He remains sedated on propofol at 25 mcg/kg/m. He's on Nimbex at 2 mcg/kg/m. He is requiring norepinephrine at 39 mcg/m. He is on insulin drip at 8 units per hour. 0.9 normal saline at 75 ML's per hour. His echocardiogram revealed ejection fraction of 30-35%. CVP running about 12. Chest x-ray reveals evidence of congestive heart failure with mild interstitial pulmonary edema. Patchy retrocardiac opacity suspected to be atelectasis. White count 7.4. Hemoglobin 11.5. Platelet count 120,000. Sodium 134. Potassium 5.4. BUN 50. Creatinine 7.54. AST 604. ALT 418. Remains on DuoNeb inhalations. Objective - Vital Signs Vital signs: Vital Signs Temp 99.0 F 06/16/20 08:00 Pulse 68 06/16/20 09:00 Resp 18 06/16/20 09:00 BP 105/35 06/16/20 01:00 Pulse Ox 99 06/16/20 09:00 Intake & Output 06/15/20 06/16/20 06/16/20 18:59 06:59 18:59 Intake Total 464.36 4445.042 433.772 Output Total 300 167 270 Balance 164.36 4278.042 163.772 Weight 97.1 kg 110.5 kg Intake: IV 350 4098 243 Pressure Bags 48 18 Sodium Chloride 0.9% 1, 900 225 000 ml @ 75 mls/hr IV . [id number] [facility] Rx#:[id number] Sodium Chloride 0.9% 1, 1000 000 ml @ 999 mls/hr IV . Q1H1M ONE Rx#:[id number] Sodium Chloride 0.9% 1, 1000 000 ml @ 999 mls/hr IV . Q1H1M ONE Rx#:[id number] Sodium Chloride 0.9% 1, 1000 000 ml @ 999 mls/hr IV . Q1H1M ONE Rx#:[id number] Sodium Chloride 0.9% 150 150 ml @ 0.03 UNITS/MIN 4.59 mls/hr IV .Q24H MOMO with Vasopressin 60 unit Rx#: [id number] Intake, IV Titration 114.36 347.042 100.772 Amount Heparin Sod,Pork in 0.45% 114.36 NaCl 25,000 unit In 0.45 % NaCl 1 250ml.bag @ 10.3 UNITS/KG/HR 9.998 mls/hr IV .Q24H [facility] Rx#: [id number] Norepinephrine 32 mg In 135.485 100.772 Sodium Chloride 0.9% 218 ml @ 0.05 MCG/KG/MIN 2. 276 mls/hr IV .Q24H [facility] Rx#:[id number] Norepinephrine 4 mg In 138.732 Sodium Chloride 0.9% 250 ml @ 0.05 MCG/KG/MIN 18. 498 mls/hr IV .[id number] [facility] Rx#:[id number] propofoL 1,000 mg In 72.825 Empty Bag 1 bag @ Titrate IV .Q0M [facility] Rx#: [id number] Other 90 Output: Gastric Drainage 250 Urine 300 167 20 Other: Voiding Method Indwelling Catheter Indwelling Catheter # Voids 1 # Bowel Movements 0 ABP, PAP, CO, CI - Last Documented Arterial Blood Pressure 118/48 - Exam GENERAL EXAM: Intubated, sedated and paralyzed on the mechanical ventilator at 40% FiO2, comfortable in no apparent distress. HEAD: Normocephalic. EYES: Sluggish reaction of pupils, equal size. NOSE: Clear with pink turbinates. THROAT: Oral endotracheal and gastric tube secured in place. No erythema or exudates. NECK: No masses, no JVD. Left internal jugular triple-lumen catheter in place. CHEST: No chest wall deformity. LUNGS: Equal air entry with faint crackles in the bilateral posterior bases. CVS: S1 and S2 normal with no audible murmur, regular rhythm. ABDOMEN: No hepatosplenomegaly, normal bowel sounds, no guarding or rigidity. SPINE: No scoliosis or deformity SKIN: No rashes CENTRAL NERVOUS SYSTEM: Intubated, sedated, paralyzed. tone is normal in all 4 extremities. EXTREMITIES: There is no peripheral edema. No clubbing, no cyanosis. Peripheral pulses are intact. - Labs CBC & Chem 7: 06/16/20 05:00 06/16/20 05:00 Labs: Abnormal Lab Results - Last 24 Hours (Table) 06/15/20 06/15/20 06/15/20 Range/Units 18:44 19:21 19:32 RBC 3.53 L (4.30-5.90) m/uL Hgb 11.5 L (13.0-17.5) gm/dL Hct 34.9 L (39.0-53.0) % RDW 16.0 H (11.5-15.5) % Plt Count 72 L (150-450) k/uL Lymphocytes # (1.0-4.8) k/uL ABG pO2 (83-108) mmHg ABG HCO3 (21-25) mmol/L ABG Total CO2 (19-24) mmol/L ABG O2 Saturation (94-97) % ABG Lactic Acid (0.5-1.6) mmol/L Sodium (137-145) mmol/L Potassium (3.5-5.1) mmol/L Chloride (98-107) mmol/L BUN (9-20) mg/dL Creatinine (0.66-1.25) mg/dL Glucose (74-99) mg/dL POC Glucose (mg/dL) 226 H 193 H (75-99) mg/dL Plasma Lactic Acid Fredy (0.7-2.0) mmol/L Calcium (8.4-10.2) mg/dL Phosphorus (2.5-4.5) mg/dL Magnesium (1.6-2.3) mg/dL Total Bilirubin (0.2-1.3) mg/dL AST (17-59) U/L ALT (4-49) U/L Alkaline Phosphatase (38-126) U/L Total Protein (6.3-8.2) g/dL Albumin (3.5-5.0) g/dL 06/15/20 06/15/20 06/15/20 Range/Units 19:32 19:32 21:05 RBC (4.30-5.90) m/uL Hgb (13.0-17.5) gm/dL Hct (39.0-53.0) % RDW (11.5-15.5) % Plt Count (150-450) k/uL Lymphocytes # (1.0-4.8) k/uL ABG pO2 257 H (83-108) mmHg ABG HCO3 27 H (21-25) mmol/L ABG Total CO2 28 H (19-24) mmol/L ABG O2 Saturation 99.2 H (94-97) % ABG Lactic Acid (0.5-1.6) mmol/L Sodium 135 L (137-145) mmol/L Potassium 5.5 H (3.5-5.1) mmol/L Chloride 96 L (98-107) mmol/L BUN 41 H (9-20) mg/dL Creatinine 7.23 H* (0.66-1.25) mg/dL Glucose 211 H (74-99) mg/dL POC Glucose (mg/dL) (75-99) mg/dL Plasma Lactic Acid Fredy 4.2 H* (0.7-2.0) mmol/L Calcium 7.9 L (8.4-10.2) mg/dL Phosphorus 6.4 H (2.5-4.5) mg/dL Magnesium 2.4 H (1.6-2.3) mg/dL Total Bilirubin 2.6 H (0.2-1.3) mg/dL AST 233 H (17-59) U/L ALT 113 H (4-49) U/L Alkaline Phosphatase (38-126) U/L Total Protein 6.1 L (6.3-8.2) g/dL Albumin 3.3 L (3.5-5.0) g/dL 06/15/20 06/15/20 06/16/20 Range/Units 23:51 23:52 05:00 RBC 3.67 L (4.30-5.90) m/uL Hgb 11.5 L (13.0-17.5) gm/dL Hct 36.1 L (39.0-53.0) % RDW 16.2 H (11.5-15.5) % Plt Count 120 L D (150-450) k/uL Lymphocytes # 0.6 L (1.0-4.8) k/uL ABG pO2 (83-108) mmHg ABG HCO3 (21-25) mmol/L ABG Total CO2 (19-24) mmol/L ABG O2 Saturation (94-97) % ABG Lactic Acid (0.5-1.6) mmol/L Sodium (137-145) mmol/L Potassium (3.5-5.1) mmol/L Chloride (98-107) mmol/L BUN (9-20) mg/dL Creatinine (0.66-1.25) mg/dL Glucose (74-99) mg/dL POC Glucose (mg/dL) 287 H (75-99) mg/dL Plasma Lactic Acid Fredy 2.6 H* (0.7-2.0) mmol/L Calcium (8.4-10.2) mg/dL Phosphorus (2.5-4.5) mg/dL Magnesium (1.6-2.3) mg/dL Total Bilirubin (0.2-1.3) mg/dL AST (17-59) U/L ALT (4-49) U/L Alkaline Phosphatase (38-126) U/L Total Protein (6.3-8.2) g/dL Albumin (3.5-5.0) g/dL 06/16/20 06/16/20 06/16/20 Range/Units 05:00 05:00 05:05 RBC (4.30-5.90) m/uL Hgb (13.0-17.5) gm/dL Hct (39.0-53.0) % RDW (11.5-15.5) % Plt Count (150-450) k/uL Lymphocytes # (1.0-4.8) k/uL ABG pO2 119 H (83-108) mmHg ABG HCO3 28 H (21-25) mmol/L ABG Total CO2 30 H (19-24) mmol/L ABG O2 Saturation 98.0 H (94-97) % ABG Lactic Acid 1.9 H (0.5-1.6) mmol/L Sodium 134 L (137-145) mmol/L Potassium 5.4 H (3.5-5.1) mmol/L Chloride (98-107) mmol/L BUN 50 H (9-20) mg/dL Creatinine 7.54 H* (0.66-1.25) mg/dL Glucose 323 H (74-99) mg/dL POC Glucose (mg/dL) (75-99) mg/dL Plasma Lactic Acid Fredy (0.7-2.0) mmol/L Calcium 7.5 L (8.4-10.2) mg/dL Phosphorus (2.5-4.5) mg/dL Magnesium (1.6-2.3) mg/dL Total Bilirubin 1.7 H (0.2-1.3) mg/dL AST 604 H (17-59) U/L ALT 418 H (4-49) U/L Alkaline Phosphatase 128 H (38-126) U/L Total Protein 5.4 L (6.3-8.2) g/dL Albumin 3.0 L (3.5-5.0) g/dL 06/16/20 06/16/20 Range/Units 06:32 09:02 RBC (4.30-5.90) m/uL Hgb (13.0-17.5) gm/dL Hct (39.0-53.0) % RDW (11.5-15.5) % Plt Count (150-450) k/uL Lymphocytes # (1.0-4.8) k/uL ABG pO2 (83-108) mmHg ABG HCO3 (21-25) mmol/L ABG Total CO2 (19-24) mmol/L ABG O2 Saturation (94-97) % ABG Lactic Acid (0.5-1.6) mmol/L Sodium (137-145) mmol/L Potassium (3.5-5.1) mmol/L Chloride (98-107) mmol/L BUN (9-20) mg/dL Creatinine (0.66-1.25) mg/dL Glucose (74-99) mg/dL POC Glucose (mg/dL) 335 H 272 H (75-99) mg/dL Plasma Lactic Acid Fredy (0.7-2.0) mmol/L Calcium (8.4-10.2) mg/dL Phosphorus (2.5-4.5) mg/dL Magnesium (1.6-2.3) mg/dL Total Bilirubin (0.2-1.3) mg/dL AST (17-59) U/L ALT (4-49) U/L Alkaline Phosphatase (38-126) U/L Total Protein (6.3-8.2) g/dL Albumin (3.5-5.0) g/dL Assessment and Plan Assessment: 1 Non-ST segment elevation myocardial infarction, status post placement to the RCA, status post cardiopulmonary arrest. 2 Acute hypoxemic respiratory failure secondary to above requiring intubation mechanical ventilatory support 3 Profound hypotension, shock, requiring pressor support 4 Severe ischemic cardiomyopathy with ejection fraction 30-35% 5 History of previous aortic valve replacement and coronary artery bypass grafting 2 6 Diabetes mellitus 7 Diabetic neuropathy 8 End-stage renal disease receiving dialysis Sunday 9 Hyperlipidemia 10 History of hypertension 11 Chronic anemia 12 Elevated liver enzymes in [place] to cardiogenic shock Plan: The patient was seen and evaluated by Dr. Umanzor Chest x-ray, ABGs and labs reviewed We will discontinue the Nimbex Hemodialysis today Repeat chest x-ray, ABGs in the a.m. Sedation holiday if tolerated Initiate these with nutritional support if not extubated We will continue to follow and make further recommendations based on his cli nical status Critical care time 38 minutes I, the cosigning physician, performed a history & physical examination of the patient. Lungs sounds with bilateral crackles in the posterior. Maintaining good O2 saturations in the 90s on 40% FiO2 on mechanical ventilator. I discussed the assessment and plan of care with my nurse practitioner, Yue Espino. I attest to the above note as dictated by her. Time with Patient: Greater than 30
--- NOTE | 2020-06-16 10:59 | PCN ---
PROCEDURE NOTE PULMONARY/CRITICAL CARE PROCEDURE NOTE: There was 2 procedures. One is a central line and one is an arterial line. LEFT RADIAL ARTERIAL LINE: PREOPERATIVE DIAGNOSIS: Administration of frequent blood draws and blood gas monitoring. POSTOPERATIVE DIAGNOSIS: Administration of frequent blood draws and blood gas monitoring. GLUE MACHINE OPERATOR: Dr. Umanzor The left radial site was used. There was good blood return and waveform. The catheter was sutured in place. There was no immediate complication. Sterile dressing was applied by the nurse. LEFT INTERNAL JUGULAR TRIPLE-LUMEN CATHETER: GLUE MACHINE OPERATOR: Dr. Umanzor. PREOPERATIVE DIAGNOSIS: Administration of fluids and pressors. POSTOPERATIVE DIAGNOSIS: Administration of fluids and pressors. The left internal jugular site was used. We used a posterior approach. There was good blood return from all 3 ports. The patient tolerated the procedure well. The catheter was sutured in place. Sterile dressing was applied by the nurse. A chest x-ray was ordered to check placement. MMODL / IJN: [id number] /
[2020-06-16 11:25] LABS: Glucose,Whole Blood 234 mg/dL (75-99)
--- NOTE | 2020-06-16 11:41 | PN ---
PROGRESS NOTE Patient is seen for followup for end-stage renal disease. He did have cardiac catheterization yesterday and status post stent to RCA. However, post catheterization, patient had a heart cardiac arrest which was for about 11 minutes. Patient was intubated. Following that, he has had significant hypotension requiring pressors. He is also on paralytic agents. His potassium was 5.5 yesterday at the time of the cardiac arrest. Repeat potassium this morning was 5.4. There are plans for possible cardiac catheterization again today. PHYSICAL EXAMINATION: Blood pressure was 111/46, heart rate 68 per minute, patient is afebrile. He is sedated he is on the vent. Examination of the heart S1, S2. Examination of the lungs, bilateral breath sounds are heard. Abdomen is soft, nontender. Examination of lower extremities shows trace edema. LABS: Show sodium of 134, potassium 5.4, chloride 98, BUN 50, creatinine 7.54, hemoglobin 11.5 g/dL. ASSESSMENT: 1. End-stage renal disease, on hemodialysis on a Sunday, Sunday, Sunday schedule. Currently patient is quite hypotensive. If he has repeat cardiac catheterization today, we will dialyze him after his catheterization. No plans on any fluid removal. We will dialyze him with low flows in an attempt to decrease the potassium levels. 2. Non ST elevation NM, status post stent placement to RCA, status post cardiac arrest. 3. Profound hypotension, shock, mostly cardiac. 4. Severe ischemic cardiomyopathy, ejection fraction 30% to 35%. 5. Status post cardiac arrest. PLAN: Hemodialysis today with low flows, no ultrafiltration. Continue with IV fluids. If patient is going back for cardiac catheterization, we will dialyze him after his catheterization. MMODL / IJN: [id number] /
[2020-06-16 12:17] LABS: Glucose,Whole Blood 146 mg/dL (75-99)
[2020-06-16] MEDS: SODIUM CHLORIDE 0.9% 1,000 ML IV SCH ×2 (12:19)
--- NOTE | 2020-06-16 13:27 | P.PN ---
Subjective Progress Note Date: 06/16/20 HISTORY OF PRESENT ILLNESS: Patient is status post cardiac cath with Dr. Cordero with stenting of the proximal RCA with reduction of stenosis from 80% to 0%. Soon after his cardiac cath, patient went into cardiac arrest. He was successfully resuscitated after 10-12 minutes. Patient examined this morning in the ICU. He remains on mechanical ventilation. He remains on high dose levophed for blood pressure support. Chest x-ray this morning reveals stable findings suggestive of congestive heart failure and mild interstitial pulmonary edema. Patchy retrocardiac opacity probably atelectasis. Echocardiogram reveals EF 30- 35%. PHYSICAL EXAM: VITAL SIGNS: Reviewed. GENERAL: Well-developed in no acute distress-sedated on mechanical ventilation. NECK: Supple. No JVD or thyromegaly LUNGS: Respirations even and unlabored. Lungs diminished. HEART: Regular rate and rhythm. S1 and S2 heard. EXTREMITIES: Normal range of motion. No clubbing or cyanosis. Peripheral pulses intact. No lower extremity edema. Right groin cath site with pulse present. No hematoma noted. ASSESSMENT: Non-ST elevated myocardial infarction, status post PCI to proximal RCA Cardiopulmonary arrest Acute hypoxic respiratory failure requiring mechanical ventilation Ischemic cardiomyopathy, EF 30-35% Hypotension requiring vasopressor support Elevated liver enzymes, secondary to cardiogenic shock History of end-stage renal disease on hemodialysis History of previous aortic valve replacement and CABG 2 Hypertension Hyperlipidemia Diabetes mellitus, type II PLAN: Continue ventilator management per Dr Umanzor Nephrology following for CKD Wean vasopressors as tolerated Continue supportive measures Further recommendations pending patient course Nurse practitioner note has been reviewed by physician. Signing provider agrees with the documented findings, assessment, and plan of care. Objective - Vital Signs Vital signs: Vital Signs Temp 98.9 F 06/16/20 12:00 Pulse 64 06/16/20 12:00 Resp 18 06/16/20 12:00 BP 105/35 06/16/20 01:00 Pulse Ox 99 06/16/20 12:00 Intake & Output 06/15/20 06/16/20 06/16/20 18:59 06:59 18:59 Intake Total 464.36 4445.042 868.254 Output Total 300 167 290 Balance 164.36 4278.042 578.254 Weight 97.1 kg 110.5 kg Intake: IV 350 4098 486 Pressure Bags 48 36 Sodium Chloride 0.9% 1, 900 450 000 ml @ 75 mls/hr IV . [id number] [facility] Rx#:[id number] Sodium Chloride 0.9% 1, 1000 000 ml @ 999 mls/hr IV . Q1H1M [facility] Rx#:[id number] Sodium Chloride 0.9% 1, 1000 000 ml @ 999 mls/hr IV . Q1H1M [facility] Rx#:[id number] Sodium Chloride 0.9% 1, 1000 000 ml @ 999 mls/hr IV . Q1H1M [facility] Rx#:[id number] Sodium Chloride 0.9% 150 150 ml @ 0.03 UNITS/MIN 4.59 mls/hr IV .Q24H [facility] with Vasopressin 60 unit Rx#: [id number] Intake, IV Titration 114.36 347.042 292.254 Amount Cisatracurium 200 mg In 162.74 Sodium Chloride 0.9% 180 ml @ 2 MCG/KG/MIN 11.652 mls/hr IV .[id number] [facility] Rx #:[id number] Heparin Sod,Pork in 0.45% 114.36 NaCl 25,000 unit In 0.45 % NaCl 1 250ml.bag @ 10.3 UNITS/KG/HR 9.998 mls/hr IV .Q24H [facility] Rx#: [id number] Insulin Regular 100 unit 28.742 In Sodium Chloride 0.9% 100 ml @ Per Protocol IV .Q0M [facility] Rx#:[id number] Norepinephrine 32 mg In 135.485 100.772 Sodium Chloride 0.9% 218 ml @ 0.05 MCG/KG/MIN 2. 276 mls/hr IV .Q24H [facility] Rx#:[id number] Norepinephrine 4 mg In 138.732 Sodium Chloride 0.9% 250 ml @ 0.05 MCG/KG/MIN 18. 498 mls/hr IV .[id number] [facility] Rx#:[id number] propofoL 1,000 mg In 72.825 Empty Bag 1 bag @ Titrate IV .Q0M [facility] Rx#: [id number] Other 90 Output: Gastric Drainage 250 Urine 300 167 40 Other: Voiding Method Indwelling Catheter Indwelling Catheter # Voids 1 # Bowel Movements 0 ABP, PAP, CO, CI - Last Documented Arterial Blood Pressure 114/46 - Labs CBC & Chem 7: 06/16/20 05:00 06/16/20 05:00 Labs: Abnormal Lab Results - Last 24 Hours (Table) 06/15/20 06/15/20 06/15/20 Range/Units 18:44 19:21 19:32 RBC 3.53 L (4.30-5.90) m/uL Hgb 11.5 L (13.0-17.5) gm/dL Hct 34.9 L (39.0-53.0) % RDW 16.0 H (11.5-15.5) % Plt Count 72 L (150-450) k/uL Lymphocytes # (1.0-4.8) k/uL ABG pO2 (83-108) mmHg ABG HCO3 (21-25) mmol/L ABG Total CO2 (19-24) mmol/L ABG O2 Saturation (94-97) % ABG Lactic Acid (0.5-1.6) mmol/L Sodium (137-145) mmol/L Potassium (3.5-5.1) mmol/L Chloride (98-107) mmol/L BUN (9-20) mg/dL Creatinine (0.66-1.25) mg/dL Glucose (74-99) mg/dL POC Glucose (mg/dL) 226 H 193 H (75-99) mg/dL Plasma Lactic Acid Fredy (0.7-2.0) mmol/L Calcium (8.4-10.2) mg/dL Phosphorus (2.5-4.5) mg/dL Magnesium (1.6-2.3) mg/dL Total Bilirubin (0.2-1.3) mg/dL AST (17-59) U/L ALT (4-49) U/L Alkaline Phosphatase (38-126) U/L Total Protein (6.3-8.2) g/dL Albumin (3.5-5.0) g/dL 06/15/20 06/15/20 06/15/20 Range/Units 19:32 19:32 21:05 RBC (4.30-5.90) m/uL Hgb (13.0-17.5) gm/dL Hct (39.0-53.0) % RDW (11.5-15.5) % Plt Count (150-450) k/uL Lymphocytes # (1.0-4.8) k/uL ABG pO2 257 H (83-108) mmHg ABG HCO3 27 H (21-25) mmol/L ABG Total CO2 28 H (19-24) mmol/L ABG O2 Saturation 99.2 H (94-97) % ABG Lactic Acid (0.5-1.6) mmol/L Sodium 135 L (137-145) mmol/L Potassium 5.5 H (3.5-5.1) mmol/L Chloride 96 L (98-107) mmol/L BUN 41 H (9-20) mg/dL Creatinine 7.23 H* (0.66-1.25) mg/dL Glucose 211 H (74-99) mg/dL POC Glucose (mg/dL) (75-99) mg/dL Plasma Lactic Acid Fredy 4.2 H* (0.7-2.0) mmol/L Calcium 7.9 L (8.4-10.2) mg/dL Phosphorus 6.4 H (2.5-4.5) mg/dL Magnesium 2.4 H (1.6-2.3) mg/dL Total Bilirubin 2.6 H (0.2-1.3) mg/dL AST 233 H (17-59) U/L ALT 113 H (4-49) U/L Alkaline Phosphatase (38-126) U/L Total Protein 6.1 L (6.3-8.2) g/dL Albumin 3.3 L (3.5-5.0) g/dL 06/15/20 06/15/20 06/16/20 Range/Units 23:51 23:52 05:00 RBC 3.67 L (4.30-5.90) m/uL Hgb 11.5 L (13.0-17.5) gm/dL Hct 36.1 L (39.0-53.0) % RDW 16.2 H (11.5-15.5) % Plt Count 120 L D (150-450) k/uL Lymphocytes # 0.6 L (1.0-4.8) k/uL ABG pO2 (83-108) mmHg ABG HCO3 (21-25) mmol/L ABG Total CO2 (19-24) mmol/L ABG O2 Saturation (94-97) % ABG Lactic Acid (0.5-1.6) mmol/L Sodium (137-145) mmol/L Potassium (3.5-5.1) mmol/L Chloride (98-107) mmol/L BUN (9-20) mg/dL Creatinine (0.66-1.25) mg/dL Glucose (74-99) mg/dL POC Glucose (mg/dL) 287 H (75-99) mg/dL Plasma Lactic Acid Fredy 2.6 H* (0.7-2.0) mmol/L Calcium (8.4-10.2) mg/dL Phosphorus (2.5-4.5) mg/dL Magnesium (1.6-2.3) mg/dL Total Bilirubin (0.2-1.3) mg/dL AST (17-59) U/L ALT (4-49) U/L Alkaline Phosphatase (38-126) U/L Total Protein (6.3-8.2) g/dL Albumin (3.5-5.0) g/dL 06/16/20 06/16/20 06/16/20 Range/Units 05:00 05:00 05:05 RBC (4.30-5.90) m/uL Hgb (13.0-17.5) gm/dL Hct (39.0-53.0) % RDW (11.5-15.5) % Plt Count (150-450) k/uL Lymphocytes # (1.0-4.8) k/uL ABG pO2 119 H (83-108) mmHg ABG HCO3 28 H (21-25) mmol/L ABG Total CO2 30 H (19-24) mmol/L ABG O2 Saturation 98.0 H (94-97) % ABG Lactic Acid 1.9 H (0.5-1.6) mmol/L Sodium 134 L (137-145) mmol/L Potassium 5.4 H (3.5-5.1) mmol/L Chloride (98-107) mmol/L BUN 50 H (9-20) mg/dL Creatinine 7.54 H* (0.66-1.25) mg/dL Glucose 323 H (74-99) mg/dL POC Glucose (mg/dL) (75-99) mg/dL Plasma Lactic Acid Fredy (0.7-2.0) mmol/L Calcium 7.5 L (8.4-10.2) mg/dL Phosphorus (2.5-4.5) mg/dL Magnesium (1.6-2.3) mg/dL Total Bilirubin 1.7 H (0.2-1.3) mg/dL AST 604 H (17-59) U/L ALT 418 H (4-49) U/L Alkaline Phosphatase 128 H (38-126) U/L Total Protein 5.4 L (6.3-8.2) g/dL Albumin 3.0 L (3.5-5.0) g/dL 06/16/20 06/16/20 06/16/20 Range/Units 06:32 09:02 10:31 RBC (4.30-5.90) m/uL Hgb (13.0-17.5) gm/dL Hct (39.0-53.0) % RDW (11.5-15.5) % Plt Count (150-450) k/uL Lymphocytes # (1.0-4.8) k/uL ABG pO2 (83-108) mmHg ABG HCO3 (21-25) mmol/L ABG Total CO2 (19-24) mmol/L ABG O2 Saturation (94-97) % ABG Lactic Acid (0.5-1.6) mmol/L Sodium (137-145) mmol/L Potassium (3.5-5.1) mmol/L Chloride (98-107) mmol/L BUN (9-20) mg/dL Creatinine (0.66-1.25) mg/dL Glucose (74-99) mg/dL POC Glucose (mg/dL) 335 H 272 H 303 H (75-99) mg/dL Plasma Lactic Acid Fredy (0.7-2.0) mmol/L Calcium (8.4-10.2) mg/dL Phosphorus (2.5-4.5) mg/dL Magnesium (1.6-2.3) mg/dL Total Bilirubin (0.2-1.3) mg/dL AST (17-59) U/L ALT (4-49) U/L Alkaline Phosphatase (38-126) U/L Total Protein (6.3-8.2) g/dL Albumin (3.5-5.0) g/dL 11/11/20 11/11/20 Range/Units 11:23 12:16 RBC (4.30-5.90) m/uL Hgb (13.0-17.5) gm/dL Hct (39.0-53.0) % RDW (11.5-15.5) % Plt Count (150-450) k/uL Lymphocytes # (1.0-4.8) k/uL ABG pO2 (83-108) mmHg ABG HCO3 (21-25) mmol/L ABG Total CO2 (19-24) mmol/L ABG O2 Saturation (94-97) % ABG Lactic Acid (0.5-1.6) mmol/L Sodium (137-145) mmol/L Potassium (3.5-5.1) mmol/L Chloride (98-107) mmol/L BUN (9-20) mg/dL Creatinine (0.66-1.25) mg/dL Glucose (74-99) mg/dL POC Glucose (mg/dL) 234 H 146 H (75-99) mg/dL Plasma Lactic Acid Fredy (0.7-2.0) mmol/L Calcium (8.4-10.2) mg/dL Phosphorus (2.5-4.5) mg/dL Magnesium (1.6-2.3) mg/dL Total Bilirubin (0.2-1.3) mg/dL AST (17-59) U/L ALT (4-49) U/L Alkaline Phosphatase (38-126) U/L Total Protein (6.3-8.2) g/dL Albumin (3.5-5.0) g/dL
--- NOTE | 2020-06-16 13:36 | P.PN ---
Subjective Progress Note Date: 06/16/20 HISTORY OF PRESENT ILLNESS 65-year-old male one of my office patient who seen cardiology regular basis laura golden to have history of coronary disease post bypass surgery with MCDERMOTT to the LAD and [place] the graft on the left circumflex artery. Patient also with dialysis the times a week and has been doing well till few days earlier when he developed to have significant chest pain with exertion associated with significant shortness of breath ended up coming to the emergency department tested and cardiac enzymes were negative patient ended up being discharged home to see cardiology as an outpatient. Hardly finish dialysis today with patient developed to have significant midsternal chest point and along with nausea without vomiting and had significant lightheadedness. Patient ended up coming [facility] department at [facility] where was seen his CK was significantly elevated originally and the total was 2.70. Patient will be kept on heparin drip seeing cardiology and plan for heart catheter based on current symptoms. 06/15: Patient remains in the ER waiting for a cardiac stepdown bed. He has been seen by cardiology and continued on aspirin and heparin, lisinopril decreased. He is scheduled for heart catheterization this afternoon. He is also scheduled for hemodialysis tomorrow. Echocardiogram report is pending. Patient has been afebrile, heart rate 77, blood pressure 98/57, pulse ox 95% on 2 L nasal cannula. Troponins have been 2.62, 2.7, 2.69. 06/16: Yesterday, patient underwent heart catheterization and stent of the RCA with Dr. Cordero. Patient had returned to his room and around 6:30 he had a cardiopulmonary arrest. He initially was PEA and was given 4 A of epi, bicarb and shocked. He was intubated and transferred to the intensive care unit. Patient remains intubated and on mechanical ventilation with tidal volume 500, FiO2 40, PEEP of 5. He is currently on Nimbex and norepinephrine. We will plan to start insulin drip this morning. Echocardiogram reveals EF of 30-35% with severe concentric left hypertrophy. Repeat lab work reveals WBC 7.4, hemoglobin 11.5, platelet count 120. Sodium 134, potassium 5.4, BUN 15 creatinine 7.54. AST 604, ALT 418. He is followed by pulmonary medicine. Nephrology is planning for repeat hemodialysis today and he is tentatively scheduled for heart catheterization again today. Chest x-ray this morning reveals suggestive of he art failure and mild interstitial pulmonary edema. Patchy retrocardiac opacities probably atelectasis. REVIEW OF SYSTEMS Unable to obtain due to intubation PHYSICAL EXAMINATION General Appearance: Alert, cooperative, no distress, appears stated age. Patient is intubated on mechanical ventilation Neck HEENT: Supple, no lymphadenopathy Lungs: Clear to auscultation without crackles or wheezes no rhonchi Chest Wall: Chest wall normal expansion with deep inspiration and no deformity was found on exam. Heart: Regular rate and rhythm, S1, S2 normal, no murmur, rub or gallop. Back: Symmetric, no curvature, ROM normal, no CVA tenderness. Abdomen: Soft, non-tender, bowel sounds active all four quadrants, no masses, no organomegaly. Alberts with small amount of dark urine. Extremities: Extremities normal, atraumatic, no cyanosis or edema. Fistula graft in the left forearm. Pulses: 2+ and symmetric. Skin: Skin color, texture, tugor normal, no rashes or lesions. Neurologic: Patient is sedated and on mechanical ventilation. ASSESSMENT AND PLAN 1 acute coronary syndrome, acute non-ST elevated myocardial infarction. Status post heart catheterization and stent of the RCA. Patient may require repeat heart catheterization today. Echocardiogram as above. Continue aspirin 81 mg daily, Lipitor 80 mg daily, Plavix 75 mg daily, continue Ranexa 1000 mg daily. 2 cardiopulmonary arrest with cardiogenic shock. Continue norepinephrine. 3 End-stage renal disease on hemodialysis 3 times a week which will be continued for now. Patient is scheduled for hemodialysis today and if he goes for repeat heart catheterization this will be done following procedure. 4 Hypertension, currently hypotensive. 5 Type 2 diabetes uncontrolled with hyperglycemia. Patient started on insulin drip. 6 advance cardiomyopathy. 7 Post aortic valve placement. 8 frequent PVCs continue Ranexa. 9 hyperlipidemia: Remain on atorvastatin. 10 hypothyroidism. Continue levothyroxine 50 g daily. 11 BPH: Watch for any urinary retention. Alberts catheter in place. 12 chronic edema: Continue diuretics. 13 GI prophylaxis: Patient will be on Pepcid. 14 DVT prophylaxis: Continue anticoagulation for now. CODE STATUS: Full code. DISCHARGE PLAN Home once stabilized Impression and plan of care have been directed as dictated by the signing physician. Tomasa Atkins nurse practitioner acting as scribe for signing physician. Objective - Vital Signs Vital signs: Vital Signs Temp 99.2 F 06/16/20 06:45 Pulse 69 06/16/20 07:35 Resp 18 06/16/20 07:00 BP 105/35 06/16/20 01:00 Pulse Ox 100 06/16/20 07:00 Intake & Output 06/15/20 06/16/20 06/16/20 18:59 06:59 18:59 Intake Total 464.36 4445.042 189.590 Output Total 300 167 264 Balance 164.36 4278.042 -74.410 Weight 97.1 kg 110.5 kg Intake: IV 350 4098 81 Pressure Bags 48 6 Sodium Chloride 0.9% 1, 900 75 000 ml @ 75 mls/hr IV . [id number] [facility] Rx#:[id number] Sodium Chloride 0.9% 1, 1000 000 ml @ 999 mls/hr IV . Q1H1M [facility] Rx#:[id number] Sodium Chloride 0.9% 1, 1000 000 ml @ 999 mls/hr IV . Q1H1 [facility] Rx#:[id number] Sodium Chloride 0.9% 1, 1000 000 ml @ 999 mls/hr IV . Q1H1M [facility] Rx#:[id number] Sodium Chloride 0.9% 150 150 ml @ 0.03 UNITS/MIN 4.59 mls/hr IV .Q24H [facility] with Vasopressin 60 unit Rx#: [id number] Intake, IV Titration 114.36 347.042 78.590 Amount Heparin Sod,Pork in 0.45% 114.36 NaCl 25,000 unit In 0.45 % NaCl 1 250ml.bag @ 10.3 UNITS/KG/HR 9.998 mls/hr IV .Q24H [facility] Rx#: [id number] Norepinephrine 32 mg In 135.485 78.590 Sodium Chloride 0.9% 218 ml @ 0.05 MCG/KG/MIN 2. 276 mls/hr IV .Q24H [facility] Rx#:[id number] Norepinephrine 4 mg In 138.732 Sodium Chloride 0.9% 250 ml @ 0.05 MCG/KG/MIN 18. 498 mls/hr IV .[id number] [facility] Rx#:[id number] propofoL 1,000 mg In 72.825 Empty Bag 1 bag @ Titrate IV .Q0M [facility] Rx#: [id number] Other 30 Output: Gastric Drainage 250 Urine 300 167 14 Other: Voiding Method Indwelling Catheter # Voids 1 # Bowel Movements 0 ABP, PAP, CO, CI - Last Documented Arterial Blood Pressure 120/49 - Labs CBC & Chem 7: 06/16/20 05:00 06/16/20 05:00 Labs: Abnormal Lab Results - Last 24 Hours (Table) 06/15/20 06/15/20 06/15/20 Range/Units 18:44 19:21 19:32 RBC 3.53 L (4.30-5.90) m/uL Hgb 11.5 L (13.0-17.5) gm/dL Hct 34.9 L (39.0-53.0) % RDW 16.0 H (11.5-15.5) % Plt Count 72 L (150-450) k/uL Lymphocytes # (1.0-4.8) k/uL ABG pO2 (83-108) mmHg ABG HCO3 (21-25) mmol/L ABG Total CO2 (19-24) mmol/L ABG O2 Saturation (94-97) % ABG Lactic Acid (0.5-1.6) mmol/L Sodium (137-145) mmol/L Potassium (3.5-5.1) mmol/L Chloride (98-107) mmol/L BUN (9-20) mg/dL Creatinine (0.66-1.25) mg/dL Glucose (74-99) mg/dL POC Glucose (mg/dL) 226 H 193 H (75-99) mg/dL Plasma Lactic Acid Fredy (0.7-2.0) mmol/L Calcium (8.4-10.2) mg/dL Phosphorus (2.5-4.5) mg/dL Magnesium (1.6-2.3) mg/dL Total Bilirubin (0.2-1.3) mg/dL AST (17-59) U/L ALT (4-49) U/L Alkaline Phosphatase (38-126) U/L Total Protein (6.3-8.2) g/dL Albumin (3.5-5.0) g/dL 06/15/20 06/15/20 06/15/20 Range/Units 19:32 19:32 21:05 RBC (4.30-5.90) m/uL Hgb (13.0-17.5) gm/dL Hct (39.0-53.0) % RDW (11.5-15.5) % Plt Count (150-450) k/uL Lymphocytes # (1.0-4.8) k/uL ABG pO2 257 H (83-108) mmHg ABG HCO3 27 H (21-25) mmol/L ABG Total CO2 28 H (19-24) mmol/L ABG O2 Saturation 99.2 H (94-97) % ABG Lactic Acid (0.5-1.6) mmol/L Sodium 135 L (137-145) mmol/L Potassium 5.5 H (3.5-5.1) mmol/L Chloride 96 L (98-107) mmol/L BUN 41 H (9-20) mg/dL Creatinine 7.23 H* (0.66-1.25) mg/dL Glucose 211 H (74-99) mg/dL POC Glucose (mg/dL) (75-99) mg/dL Plasma Lactic Acid Fredy 4.2 H* (0.7-2.0) mmol/L Calcium 7.9 L (8.4-10.2) mg/dL Phosphorus 6.4 H (2.5-4.5) mg/dL Magnesium 2.4 H (1.6-2.3) mg/dL Total Bilirubin 2.6 H (0.2-1.3) mg/dL AST 233 H (17-59) U/L ALT 113 H (4-49) U/L Alkaline Phosphatase (38-126) U/L Total Protein 6.1 L (6.3-8.2) g/dL Albumin 3.3 L (3.5-5.0) g/dL 06/15/20 06/15/20 06/16/20 Range/Units 23:51 23:52 05:00 RBC 3.67 L (4.30-5.90) m/uL Hgb 11.5 L (13.0-17.5) gm/dL Hct 36.1 L (39.0-53.0) % RDW 16.2 H (11.5-15.5) % Plt Count 120 L D (150-450) k/uL Lymphocytes # 0.6 L (1.0-4.8) k/uL ABG pO2 (83-108) mmHg ABG HCO3 (21-25) mmol/L ABG Total CO2 (19-24) mmol/L ABG O2 Saturation (94-97) % ABG Lactic Acid (0.5-1.6) mmol/L Sodium (137-145) mmol/L Potassium (3.5-5.1) mmol/L Chloride (98-107) mmol/L BUN (9-20) mg/dL Creatinine (0.66-1.25) mg/dL Glucose (74-99) mg/dL POC Glucose (mg/dL) 287 H (75-99) mg/dL Plasma Lactic Acid Fredy 2.6 H* (0.7-2.0) mmol/L Calcium (8.4-10.2) mg/dL Phosphorus (2.5-4.5) mg/dL Magnesium (1.6-2.3) mg/dL Total Bilirubin (0.2-1.3) mg/dL AST (17-59) U/L ALT (4-49) U/L Alkaline Phosphatase (38-126) U/L Total Protein (6.3-8.2) g/dL Albumin (3.5-5.0) g/dL 06/16/20 06/16/20 06/16/20 Range/Units 05:00 05:00 05:05 RBC (4.30-5.90) m/uL Hgb (13.0-17.5) gm/dL Hct (39.0-53.0) % RDW (11.5-15.5) % Plt Count (150-450) k/uL Lymphocytes # (1.0-4.8) k/uL ABG pO2 119 H (83-108) mmHg ABG HCO3 28 H (21-25) mmol/L ABG Total CO2 30 H (19-24) mmol/L ABG O2 Saturation 98.0 H (94-97) % ABG Lactic Acid 1.9 H (0.5-1.6) mmol/L Sodium 134 L (137-145) mmol/L Potassium 5.4 H (3.5-5.1) mmol/L Chloride (98-107) mmol/L BUN 50 H (9-20) mg/dL Creatinine 7.54 H* (0.66-1.25) mg/dL Glucose 323 H (74-99) mg/dL POC Glucose (mg/dL) (75-99) mg/dL Plasma Lactic Acid Fredy (0.7-2.0) mmol/L Calcium 7.5 L (8.4-10.2) mg/dL Phosphorus (2.5-4.5) mg/dL Magnesium (1.6-2.3) mg/dL Total Bilirubin 1.7 H (0.2-1.3) mg/dL AST 604 H (17-59) U/L ALT 418 H (4-49) U/L Alkaline Phosphatase 128 H (38-126) U/L Total Protein 5.4 L (6.3-8.2) g/dL Albumin 3.0 L (3.5-5.0) g/dL 06/16/20 Range/Units 06:32 RBC (4.30-5.90) m/uL Hgb (13.0-17.5) gm/dL Hct (39.0-53.0) % RDW (11.5-15.5) % Plt Count (150-450) k/uL Lymphocytes # (1.0-4.8) k/uL ABG pO2 (83-108) mmHg ABG HCO3 (21-25) mmol/L ABG Total CO2 (19-24) mmol/L ABG O2 Saturation (94-97) % ABG Lactic Acid (0.5-1.6) mmol/L Sodium (137-145) mmol/L Potassium (3.5-5.1) mmol/L Chloride (98-107) mmol/L BUN (9-20) mg/dL Creatinine (0.66-1.25) mg/dL Glucose (74-99) mg/dL POC Glucose (mg/dL) 335 H (75-99) mg/dL Plasma Lactic Acid Fredy (0.7-2.0) mmol/L Calcium (8.4-10.2) mg/dL Phosphorus (2.5-4.5) mg/dL Magnesium (1.6-2.3) mg/dL Total Bilirubin (0.2-1.3) mg/dL AST (17-59) U/L ALT (4-49) U/L Alkaline Phosphatase (38-126) U/L Total Protein (6.3-8.2) g/dL Albumin (3.5-5.0) g/dL
[2020-06-16 13:55] LABS: Glucose,Whole Blood 135 mg/dL (75-99)
[2020-06-16 15:05] LABS: Glucose,Whole Blood 106 mg/dL (75-99)
[2020-06-16] MEDS ORDERED: DEXTROSE 50% SYRINGE 50 ML IVP ONE (16:31)
[2020-06-16 16:38] LABS: Glucose,Whole Blood 50 mg/dL (75-99)
[2020-06-16 16:38] LABS: Glucose,Whole Blood 49 mg/dL (75-99)
[2020-06-16] MEDS: CISATRACURIUM 200 MG in SODIUM CHLORIDE 0.9% 180 ML IV SCH (16:46)
[2020-06-16 16:50] LABS: Glucose,Whole Blood 140 mg/dL (75-99)
[2020-06-16 17:13] LABS: Glucose,Whole Blood 122 mg/dL (75-99)
[2020-06-16 17:17] LABS: Potassium 4.2 mmol/L (3.5-5.1)
[2020-06-16 17:55] LABS: ABG Base Excess 2.6 mmol/L; ABG HCO3 27 mmol/L (21-25); ABG Oxygen Saturation 97.4 % (94-97); ABG PCO2 40 mmHg (35-45); ABG PH 7.44 (7.35-7.45); ABG PO2 102 mmHg (83-108); ABG TCO2 28 mmol/L (19-24)
[2020-06-16 17:57] LABS: Allen Test Performed? no
[2020-06-16 18:15] LABS: Glucose,Whole Blood 127 mg/dL (75-99)
[2020-06-16 19:03] LABS: Glucose,Whole Blood 148 mg/dL (75-99)
[2020-06-16 20:12] LABS: Glucose,Whole Blood 127 mg/dL (75-99)
[2020-06-16] MEDS ORDERED: IPRATROPIUM-ALBUTEROL 3 ML NEB INHALATION PRN (20:49)
[2020-06-16 21:00] LABS: Glucose,Whole Blood 134 mg/dL (75-99)
[2020-06-16] MEDS: SODIUM CHLORIDE 0.9% 150 ML with VASOPRESSIN 60 UNIT IV SCH ×2 (21:14)
[2020-06-16 22:26] LABS: Glucose,Whole Blood 170 mg/dL (75-99)
[2020-06-16 23:38] LABS: Glucose,Whole Blood 154 mg/dL (75-99)
[2020-06-17] MEDS: NOREPINEPHRINE 32 MG in SODIUM CHLORIDE 0.9% 218 ML IV SCH ×2 (00:05→18:05)
[2020-06-17] MEDS: SODIUM CHLORIDE 0.9% 1,000 ML IV SCH ×2 (01:29→18:16)
[2020-06-17 01:37] LABS: Glucose,Whole Blood 160 mg/dL (75-99)
[2020-06-17 02:21] LABS: Glucose,Whole Blood 155 mg/dL (75-99)
[2020-06-17 03:05] LABS: Glucose,Whole Blood 163 mg/dL (75-99)
[2020-06-17 04:01] LABS: Glucose,Whole Blood 172 mg/dL (75-99)
[2020-06-17 05:13] LABS: Glucose,Whole Blood 175 mg/dL (75-99)
[2020-06-17 05:27] LABS: Anisocytosis Slight; Basophils # (A) 0.1 k/uL (0-0.2); Basophils % (A) 1 %; Eosinophils # (A) 0.1 k/uL (0-0.7); Eosinophils % (A) 1 %; HCT 36.8 % (39.0-53.0); HGB 11.8 gm/dL (13.0-17.5); Hypochromasia Slight; Lymphocytes % (A) 9 %; MCH 31.4 pg (25.0-35.0); MCV 98.4 fL (80.0-100.0); Macrocytosis Slight; Mean Platelet Volume 8.3; Monocytes # (A) 0.5 k/uL (0-1.0); Monocytes % (A) 5 %; Neutrophils # (A) 8.8 k/uL (1.3-7.7); Neutrophils % (A) 84 %; Platelet Count 144 k/uL (150-450); RBC 3.74 m/uL (4.30-5.90); RDW 16.4 % (11.5-15.5); WBC 10.6 k/uL (3.8-10.6)
[2020-06-17 05:38] LABS: Calcium 7.9 mg/dL (8.4-10.2); Total Bilirubin 1.4 mg/dL (0.2-1.3); Total Protein 5.5 g/dL (6.3-8.2)
[2020-06-17] MEDS ORDERED: HYDROmorphone 0.5 MG/0.5 ML SYRINGE IVP STA (05:52)
[2020-06-17 06:04] LABS: Glucose,Whole Blood 150 mg/dL (75-99)
[2020-06-17 07:08] LABS: Glucose,Whole Blood 139 mg/dL (75-99)
[2020-06-17] MEDS: LEVOTHYROXINE 50 MCG TAB PO SCH (07:13)
--- NOTE | 2020-06-17 07:28 | XR ---
EXAMINATION TYPE: XR chest 1V portable DATE OF EXAM: 06/17/2020 COMPARISON: Prior chest x-ray 06/16/2020 HISTORY: Extubated, abnormal chest x-ray TECHNIQUE: Single frontal view of the chest is obtained. FINDINGS: Endotracheal tube and NG tube have been removed, left jugular central venous catheter annette ins in place. No evident pneumothorax or sizable effusion, there may be minimal blunting of the calci fic angles. Perihilar airspace disease is present, the interstitium is increased. Heart is stable. Ao rta is dense. IMPRESSION: Correlate for interstitial edema, pneumonia, difficult to exclude small effusions. Inter lyndon extubation.
[2020-06-17] MEDS: IPRATROPIUM-ALBUTEROL 3 ML NEB INHALATION SCH ×4 (07:33→18:56)
[2020-06-17] MEDS: SEVELAMER 800 MG TAB PO SCH ×3 (08:16→17:07)
[2020-06-17 08:49] LABS: Glucose,Whole Blood 145 mg/dL (75-99)
[2020-06-17] MEDS: RANOLAZINE 500 MG TAB.ER.12H PO SCH (08:51)
[2020-06-17] MEDS: CLOPIDOGREL 75 MG TAB PO SCH (08:51)
[2020-06-17] MEDS: ASPIRIN 81 MG PO SCH (08:52)
[2020-06-17] MEDS: ATORVASTATIN 80 MG TAB PO SCH (08:52)
[2020-06-17] MEDS: FOLIC ACID-VIT B COMPLEX-VIT C 1 CAP PO SCH (08:52)
[2020-06-17] MEDS ORDERED: carvediloL 12.5 MG TAB PO SCH (09:00)
--- NOTE | 2020-06-17 09:05 | P.PN ---
Subjective Progress Note Date: 06/17/20 Principal diagnosis: The patient is seen today in follow-up in the intensive care unit. He was admitted to the hospital after developing chest pain following dialysis. He presented to the emergency room and found to have an acute coronary syndrome with a non-ST segment elevation myocardial infarction. He had gone to the [facility] and had a stent placed to the right coronary artery. Soon after that he had a cardiac arrest and had approximately 12 minutes of resuscitation. He did have return of spontaneous circulation. He is seen today in follow-up. He remains intubated on mechanical ventilator. Current settings assist-control of 18, tidal volume 500, FiO2 40% and a PEEP of 5. Arterial blood gases drawn this morning on 50% FiO2 revealed a pCO2 of 119, CO2 42, pH 7.43. He remains sedated on propofol at 25 mcg/kg/m. He's on Nimbex at 2 mcg/kg/m. He is requiring norepinephrine at 39 mcg/m. He is on insulin drip at 8 units per hour. 0.9 normal saline at 75 ML's per hour. His echocardiogram revealed ejection fraction of 30-35%. CVP running about 12. Chest x-ray reveals evidence of congestive heart failure with mild interstitial pulmonary edema. Patchy retrocardiac opacity suspected to be atelectasis. White count 7.4. Hemoglobin 11.5. Platelet count 120,000. Sodium 134. Potassium 5.4. BUN 50. Creatinine 7.54. AST 604. ALT 418. Remains on DuoNeb inhalations. The patient is seen today in 06/17/2020 and follow-up in the intensive care unit . He was successfully extubated yesterday. Currently he is awake and alert and doing well. He is on oxygen at 3 L/m per nasal cannula. He has 0.9 normal saline at 75 ML's per hour. He is still requiring norepinephrine at 25 mcg/m. He is on a insulin drip at 1.5 units per hour. This is day #2 following stent to the RCA. He was an Non-STEMI. White count 10.6. Hemoglobin 11.8. Sodium 133. Potassium 5.0. Creatinine 6.79. AST 11/08/1983. ALT 498. Troponin 28.2. Chest x-ray reveals interstitial edema with small effusions. Objective - Vital Signs Vital signs: Vital Signs Temp 98.5 F 11/12/20 04:00 Pulse 79 06/17/20 08:00 Resp 22 06/17/20 08:00 BP 108/44 06/16/20 16:44 Pulse Ox 99 06/17/20 08:00 Intake & Output 06/16/20 06/17/20 06/17/20 18:59 06:59 18:59 Intake Total 3525.754 9780.977 484.086 Output Total 320 115 16 Balance 8457.076 8304.977 468.086 Weight 107.6 kg Intake: IV 972 972 243 Pressure Bags 72 72 18 Sodium Chloride 0.9% 1, 900 900 225 000 ml @ 75 mls/hr IV . [id number] [facility] Rx#:[id number] Intake, IV Titration 529.396 174.977 1.086 Amount Cisatracurium 200 mg In 170.799 Sodium Chloride 0.9% 180 ml @ 2 MCG/KG/MIN 11.652 mls/hr IV .[id number] [facility] Rx #:[id number] Insulin Regular 100 unit 33.691 15.975 1.086 In Sodium Chloride 0.9% 100 ml @ Per Protocol IV .Q0M [facility] Rx#:[id number] Norepinephrine 32 mg In 209.613 159.002 Sodium Chloride 0.9% 218 ml @ 0.05 MCG/KG/MIN 2. 276 mls/hr IV .Q24H [facility] Rx#:[id number] propofoL 1,000 mg In 115.293 Empty Bag 1 bag @ Titrate IV .Q0M [facility] Rx#: [id number] Oral 50 240 Other 90 Output: Gastric Drainage 250 Urine 70 115 16 Hemodialysis 0 Other: Voiding Method Indwelling Catheter Indwelling Catheter Indwelling Catheter # Bowel Movements 0 ABP, PAP, CO, CI - Last Documented Arterial Blood Pressure 125/48 - Exam GENERAL EXAM: Awake, alert, very pleasant 65-year-old gentleman, on 3 L nasal cannula,, comfortable in no apparent distress. HEAD: Normocephalic. EYES: Sluggish reaction of pupils, equal size. NOSE: Clear with pink turbinates. THROAT: Oral endotracheal and gastric tube secured in place. No erythema or exudates. NECK: No masses, no JVD. Left internal jugular triple-lumen catheter in place. CHEST: No chest wall deformity. LUNGS: Equal air entry with faint crackles in the bilateral posterior bases. CVS: S1 and S2 normal with no audible murmur, regular rhythm. ABDOMEN: No hepatosplenomegaly, normal bowel sounds, no guarding or rigidity. SPINE: No scoliosis or deformity SKIN: No rashes CENTRAL NERVOUS SYSTEM: No focal deficits. Tone is normal in all 4 extremities. EXTREMITIES: There is no peripheral edema. No clubbing, no cyanosis. Peripheral pulses are intact. - Labs CBC & Chem 7: 06/17/20 05:12 06/17/20 05:12 Labs: Abnormal Lab Results - Last 24 Hours (Table) 06/16/20 06/16/20 06/16/20 Range/Units 09:02 10:31 11:23 RBC (4.30-5.90) m/uL Hgb (13.0-17.5) gm/dL Hct (39.0-53.0) % RDW (11.5-15.5) % Plt Count (150-450) k/uL Neutrophils # (1.3-7.7) k/uL ABG HCO3 (21-25) mmol/L ABG Total CO2 (19-24) mmol/L ABG O2 Saturation (94-97) % Sodium (137-145) mmol/L BUN (9-20) mg/dL Creatinine (0.66-1.25) mg/dL Glucose (74-99) mg/dL POC Glucose (mg/dL) 272 H 303 H 234 H (75-99) mg/dL Calcium (8.4-10.2) mg/dL Total Bilirubin (0.2-1.3) mg/dL AST (17-59) U/L ALT (4-49) U/L Troponin I (0.000-0.034) ng/mL Total Protein (6.3-8.2) g/dL Albumin (3.5-5.0) g/dL 06/16/20 06/16/20 06/16/20 Range/Units 12:16 13:15 13:54 RBC (4.30-5.90) m/uL Hgb (13.0-17.5) gm/dL Hct (39.0-53.0) % RDW (11.5-15.5) % Plt Count (150-450) k/uL Neutrophils # (1.3-7.7) k/uL ABG HCO3 (21-25) mmol/L ABG Total CO2 (19-24) mmol/L ABG O2 Saturation (94-97) % Sodium (137-145) mmol/L BUN (9-20) mg/dL Creatinine (0.66-1.25) mg/dL Glucose (74-99) mg/dL POC Glucose (mg/dL) 146 H 135 H (75-99) mg/dL Calcium (8.4-10.2) mg/dL Total Bilirubin (0.2-1.3) mg/dL AST (17-59) U/L ALT (4-49) U/L Troponin I 54.600 H* (0.000-0.034) ng/mL Total Protein (6.3-8.2) g/dL Albumin (3.5-5.0) g/dL 06/16/20 06/16/20 06/16/20 Range/Units 15:03 16:30 16:32 RBC (4.30-5.90) m/uL Hgb (13.0-17.5) gm/dL Hct (39.0-53.0) % RDW (11.5-15.5) % Plt Count (150-450) k/uL Neutrophils # (1.3-7.7) k/uL ABG HCO3 (21-25) mmol/L ABG Total CO2 (19-24) mmol/L ABG O2 Saturation (94-97) % Sodium (137-145) mmol/L BUN (9-20) mg/dL Creatinine (0.66-1.25) mg/dL Glucose (74-99) mg/dL POC Glucose (mg/dL) 106 H 49 L 50 L (75-99) mg/dL Calcium (8.4-10.2) mg/dL Total Bilirubin (0.2-1.3) mg/dL AST (17-59) U/L ALT (4-49) U/L Troponin I (0.000-0.034) ng/mL Total Protein (6.3-8.2) g/dL Albumin (3.5-5.0) g/dL 06/16/20 06/16/20 06/16/20 Range/Units 16:50 17:12 17:53 RBC (4.30-5.90) m/uL Hgb (13.0-17.5) gm/dL Hct (39.0-53.0) % RDW (11.5-15.5) % Plt Count (150-450) k/uL Neutrophils # (1.3-7.7) k/uL ABG HCO3 27 H (21-25) mmol/L ABG Total CO2 28 H (19-24) mmol/L ABG O2 Saturation 97.4 H (94-97) % Sodium (137-145) mmol/L BUN (9-20) mg/dL Creatinine (0.66-1.25) mg/dL Glucose (74-99) mg/dL POC Glucose (mg/dL) 140 H 122 H (75-99) mg/dL Calcium (8.4-10.2) mg/dL Total Bilirubin (0.2-1.3) mg/dL AST (17-59) U/L ALT (4-49) U/L Troponin I (0.000-0.034) ng/mL Total Protein (6.3-8.2) g/dL Albumin (3.5-5.0) g/dL 06/16/20 06/16/20 06/16/20 Range/Units 18:14 19:01 20:11 RBC (4.30-5.90) m/uL Hgb (13.0-17.5) gm/dL Hct (39.0-53.0) % RDW (11.5-15.5) % Plt Count (150-450) k/uL Neutrophils # (1.3-7.7) k/uL ABG HCO3 (21-25) mmol/L ABG Total CO2 (19-24) mmol/L ABG O2 Saturation (94-97) % Sodium (137-145) mmol/L BUN (9-20) mg/dL Creatinine (0.66-1.25) mg/dL Glucose (74-99) mg/dL POC Glucose (mg/dL) 127 H 148 H 127 H (75-99) mg/dL Calcium (8.4-10.2) mg/dL Total Bilirubin (0.2-1.3) mg/dL AST (17-59) U/L ALT (4-49) U/L Troponin I (0.000-0.034) ng/mL Total Protein (6.3-8.2) g/dL Albumin (3.5-5.0) g/dL 06/16/20 06/16/20 06/16/20 Range/Units 20:19 20:59 22:25 RBC (4.30-5.90) m/uL Hgb (13.0-17.5) gm/dL Hct (39.0-53.0) % RDW (11.5-15.5) % Plt Count (150-450) k/uL Neutrophils # (1.3-7.7) k/uL ABG HCO3 (21-25) mmol/L ABG Total CO2 (19-24) mmol/L ABG O2 Saturation (94-97) % Sodium (137-145) mmol/L BUN (9-20) mg/dL Creatinine (0.66-1.25) mg/dL Glucose (74-99) mg/dL POC Glucose (mg/dL) 134 H 170 H (75-99) mg/dL Calcium (8.4-10.2) mg/dL Total Bilirubin (0.2-1.3) mg/dL AST (17-59) U/L ALT (4-49) U/L Troponin I 42.600 H* (0.000-0.034) ng/mL Total Protein (6.3-8.2) g/dL Albumin (3.5-5.0) g/dL 06/16/20 06/17/20 06/17/20 Range/Units 23:36 01:25 02:20 RBC (4.30-5.90) m/uL Hgb (13.0-17.5) gm/dL Hct (39.0-53.0) % RDW (11.5-15.5) % Plt Count (150-450) k/uL Neutrophils # (1.3-7.7) k/uL ABG HCO3 (21-25) mmol/L ABG Total CO2 (19-24) mmol/L ABG O2 Saturation (94-97) % Sodium (137-145) mmol/L BUN (9-20) mg/dL Creatinine (0.66-1.25) mg/dL Glucose (74-99) mg/dL POC Glucose (mg/dL) 154 H 160 H 155 H (75-99) mg/dL Calcium (8.4-10.2) mg/dL Total Bilirubin (0.2-1.3) mg/dL AST (17-59) U/L ALT (4-49) U/L Troponin I (0.000-0.034) ng/mL Total Protein (6.3-8.2) g/dL Albumin (3.5-5.0) g/dL 06/17/20 06/17/20 06/17/20 Range/Units 03:04 03:59 05:12 RBC 3.74 L (4.30-5.90) m/uL Hgb 11.8 L (13.0-17.5) gm/dL Hct 36.8 L (39.0-53.0) % RDW 16.4 H (11.5-15.5) % Plt Count 144 L (150-450) k/uL Neutrophils # 8.8 H (1.3-7.7) k/uL ABG HCO3 (21-25) mmol/L ABG Total CO2 (19-24) mmol/L ABG O2 Saturation (94-97) % Sodium (137-145) mmol/L BUN (9-20) mg/dL Creatinine (0.66-1.25) mg/dL Glucose (74-99) mg/dL POC Glucose (mg/dL) 163 H 172 H (75-99) mg/dL Calcium (8.4-10.2) mg/dL Total Bilirubin (0.2-1.3) mg/dL AST (17-59) U/L ALT (4-49) U/L Troponin I (0.000-0.034) ng/mL Total Protein (6.3-8.2) g/dL Albumin (3.5-5.0) g/dL 06/17/20 06/17/20 06/17/20 Range/Units 05:12 05:12 05:12 RBC (4.30-5.90) m/uL Hgb (13.0-17.5) gm/dL Hct (39.0-53.0) % RDW (11.5-15.5) % Plt Count (150-450) k/uL Neutrophils # (1.3-7.7) k/uL ABG HCO3 (21-25) mmol/L ABG Total CO2 (19-24) mmol/L ABG O2 Saturation (94-97) % Sodium 133 L (137-145) mmol/L BUN 45 H (9-20) mg/dL Creatinine 6.79 H (0.66-1.25) mg/dL Glucose 168 H (74-99) mg/dL POC Glucose (mg/dL) 175 H (75-99) mg/dL Calcium 7.9 L (8.4-10.2) mg/dL Total Bilirubin 1.4 H (0.2-1.3) mg/dL AST 484 H (17-59) U/L ALT 498 H (4-49) U/L Troponin I 28.200 H* (0.000-0.034) ng/mL Total Protein 5.5 L (6.3-8.2) g/dL Albumin 3.0 L (3.5-5.0) g/dL 06/17/20 06/17/20 06/17/20 Range/Units 06:03 07:07 08:47 RBC (4.30-5.90) m/uL Hgb (13.0-17.5) gm/dL Hct (39.0-53.0) % RDW (11.5-15.5) % Plt Count (150-450) k/uL Neutrophils # (1.3-7.7) k/uL ABG HCO3 (21-25) mmol/L ABG Total CO2 (19-24) mmol/L ABG O2 Saturation (94-97) % Sodium (137-145) mmol/L BUN (9-20) mg/dL Creatinine (0.66-1.25) mg/dL Glucose (74-99) mg/dL POC Glucose (mg/dL) 150 H 139 H 145 H (75-99) mg/dL Calcium (8.4-10.2) mg/dL Total Bilirubin (0.2-1.3) mg/dL AST (17-59) U/L ALT (4-49) U/L Troponin I (0.000-0.034) ng/mL Total Protein (6.3-8.2) g/dL Albumin (3.5-5.0) g/dL Assessment and Plan Assessment: 1 Non-ST segment elevation myocardial infarction, status post placement to the RCA, status post cardiopulmonary arrest. 2 Acute hypoxemic respiratory failure secondary to above requiring intubation mechanical ventilatory support 3 Profound hypotension, shock, requiring pressor support 4 Severe ischemic cardiomyopathy with ejection fraction 30-35% 5 History of previous aortic valve replacement and coronary artery bypass grafting 2 6 Diabetes mellitus 7 Diabetic neuropathy 8 End-stage renal disease receiving dialysis Sunday 9 Hyperlipidemia 10 History of hypertension 11 Chronic anemia 12 Elevated liver enzymes in [place] to cardiogenic shock Plan: The patient was seen and evaluated by Dr. Umanzor Chest x-ray, labs reviewed Continue the current treatment plan Titrate down the FiO2 as tolerated Titrate down the norepinephrine as tolerated We will continue to follow and make further recommendations based on his clinical status I, the cosigning physician, performed a history & physical examination of the patient. Lungs sounds with bilateral crackles in the posterior. Maintaining good O2 saturations in the 90s on 3 L/m per nasal cannula. I discussed the assessment and plan of care with my nurse practitioner, Yue Espino. I attest to the above note as dictated by her.
[2020-06-17 09:54] LABS: Glucose,Whole Blood 158 mg/dL (75-99)
[2020-06-17 10:46] VITALS: BMI 35.0
[2020-06-17] MEDS ORDERED: ACETAMINOPHEN TAB 325 MG TAB PO PRN (10:47)
[2020-06-17] MEDS: HYDROmorphone 0.5 MG/0.5 ML SYRINGE IVP PRN ×3 (10:55→23:59)
--- NOTE | 2020-06-17 11:29 | PN ---
PROGRESS NOTE Patient is seen for followup for end-stage renal disease. He was dialyzed yesterday, patient tolerated his treatment okay. His Levophed is down to about 2.26 mcg/kg compared to 0.36 yesterday. Patient has been extubated. He is awake, comfortable, complaining of pain in his chest area at the site of the CPR. PHYSICAL EXAMINATION: On examination today, blood pressure 100/46, heart rate 78 per minute, he is afebrile. Examination of the heart S1, S2. Examination of lungs, decreased breath sounds at bases. Abdomen is soft, obese, nontender. Examination of the lower extremities shows no significant edema. [employer] exam grossly intact. LABS: Show sodium 133, potassium 5.0, BUN 45, creatinine 6.79, hemoglobin 11.8 g/dL. Troponin 28. ASSESSMENT: 1. End-stage renal disease, on hemodialysis on a Sunday, Sunday, Sunday schedule. Will arrange for hemodialysis in a.m. 2. Status post cardiac arrest. 3. Cardiogenic shock. 4. Status post [place], status post stenting of right coronary artery. 5. Cardiomyopathy. PLAN: Hemodialysis in a.m. We will try for about half to one liter of ultrafiltration if tolerated. MMODL / IJN: [id number] /
--- NOTE | 2020-06-17 11:59 | P.PN ---
Subjective Progress Note Date: 06/17/20 HISTORY OF PRESENT ILLNESS: Patient examined this morning at the bedside. He was extubated yesterday evening. He denies chest pain or pressure. Denies shortness of breath. He remains on levophed for blood pressure support. He underwent ultrafiltration yesterday. PHYSICAL EXAM: VITAL SIGNS: Reviewed. GENERAL: Well-developed in no acute distress NECK: Supple. No JVD or thyromegaly LUNGS: Respirations even and unlabored. Lungs diminished. HEART: Regular rate and rhythm. S1 and S2 heard. EXTREMITIES: Normal range of motion. No clubbing or cyanosis. Peripheral pulses intact. No lower extremity edema. Right groin cath site with pulse present. No hematoma noted. ASSESSMENT: Non-ST elevated myocardial infarction, status post PCI to proximal RCA Cardiopulmonary arrest Acute hypoxic respiratory failure requiring mechanical ventilation Ischemic cardiomyopathy, EF 30-35% Hypotension requiring vasopressor support Elevated liver enzymes, secondary to cardiogenic shock History of end-stage renal disease on hemodialysis History of previous aortic valve replacement and CABG 2 Hypertension Hyperlipidemia Diabetes mellitus, type II PLAN: Continue ICU management per Dr Umanzor Nephrology following for CKD Wean vasopressors as tolerated Continue supportive measures Further recommendations pending patient course Nurse practitioner note has been reviewed by physician. Signing provider agrees with the documented findings, assessment, and plan of care. Objective - Vital Signs Vital signs: Vital Signs Temp 98.5 F 06/17/20 04:00 Pulse 73 06/17/20 11:32 Resp 20 06/17/20 10:00 BP 108/44 06/16/20 16:44 Pulse Ox 99 06/17/20 10:00 Intake & Output 06/16/20 06/17/20 06/17/20 18:59 06:59 18:59 Intake Total 7674.657 2729.977 641.125 Output Total 320 115 21 Balance 2223.647 2336.977 620.125 Weight 107.6 kg 107.6 kg Intake: IV 972 972 324 Pressure Bags 72 72 24 Sodium Chloride 0.9% 1, 900 900 300 000 ml @ 75 mls/hr IV . [id number] [facility] Rx#:[id number] Intake, IV Titration 529.396 174.977 77.125 Amount Cisatracurium 200 mg In 170.799 Sodium Chloride 0.9% 180 ml @ 2 MCG/KG/MIN 11.652 mls/hr IV .[id number] [facility] Rx #:[id number] Insulin Regular 100 unit 33.691 15.975 1.086 In Sodium Chloride 0.9% 100 ml @ Per Protocol IV .Q0M [facility] Rx#:[id number] Norepinephrine 32 mg In 209.613 159.002 76.039 Sodium Chloride 0.9% 218 ml @ 0.05 MCG/KG/MIN 2. 276 mls/hr IV .Q24H [facility] Rx#:[id number] propofoL 1,000 mg In 115.293 Empty Bag 1 bag @ Titrate IV .Q0M [facility] Rx#: [id number] Oral 50 240 Other 90 Output: Gastric Drainage 250 Urine 70 115 21 Hemodialysis 0 Other: Voiding Method Indwelling Catheter Indwelling Catheter Indwelling Catheter # Bowel Movements 0 ABP, PAP, CO, CI - Last Documented Arterial Blood Pressure 121/48 - Labs CBC & Chem 7: 06/17/20 05:12 06/17/20 05:12 Labs: Abnormal Lab Results - Last 24 Hours (Table) 06/16/20 06/16/20 06/16/20 Range/Units 12:16 13:15 13:54 RBC (4.30-5.90) m/uL Hgb (13.0-17.5) gm/dL Hct (39.0-53.0) % RDW (11.5-15.5) % Plt Count (150-450) k/uL Neutrophils # (1.3-7.7) k/uL ABG HCO3 (21-25) mmol/L ABG Total CO2 (19-24) mmol/L ABG O2 Saturation (94-97) % Sodium (137-145) mmol/L BUN (9-20) mg/dL Creatinine (0.66-1.25) mg/dL Glucose (74-99) mg/dL POC Glucose (mg/dL) 146 H 135 H (75-99) mg/dL Calcium (8.4-10.2) mg/dL Total Bilirubin (0.2-1.3) mg/dL AST (17-59) U/L ALT (4-49) U/L Troponin I 54.600 H* (0.000-0.034) ng/mL Total Protein (6.3-8.2) g/dL Albumin (3.5-5.0) g/dL 06/16/20 06/16/20 06/16/20 Range/Units 15:03 16:30 16:32 RBC (4.30-5.90) m/uL Hgb (13.0-17.5) gm/dL Hct (39.0-53.0) % RDW (11.5-15.5) % Plt Count (150-450) k/uL Neutrophils # (1.3-7.7) k/uL ABG HCO3 (21-25) mmol/L ABG Total CO2 (19-24) mmol/L ABG O2 Saturation (94-97) % Sodium (137-145) mmol/L BUN (9-20) mg/dL Creatinine (0.66-1.25) mg/dL Glucose (74-99) mg/dL POC Glucose (mg/dL) 106 H 49 L 50 L (75-99) mg/dL Calcium (8.4-10.2) mg/dL Total Bilirubin (0.2-1.3) mg/dL AST (17-59) U/L ALT (4-49) U/L Troponin I (0.000-0.034) ng/mL Total Protein (6.3-8.2) g/dL Albumin (3.5-5.0) g/dL 06/16/20 06/16/20 06/16/20 Range/Units 16:50 17:12 17:53 RBC (4.30-5.90) m/uL Hgb (13.0-17.5) gm/dL Hct (39.0-53.0) % RDW (11.5-15.5) % Plt Count (150-450) k/uL Neutrophils # (1.3-7.7) k/uL ABG HCO3 27 H (21-25) mmol/L ABG Total CO2 28 H (19-24) mmol/L ABG O2 Saturation 97.4 H (94-97) % Sodium (137-145) mmol/L BUN (9-20) mg/dL Creatinine (0.66-1.25) mg/dL Glucose (74-99) mg/dL POC Glucose (mg/dL) 140 H 122 H (75-99) mg/dL Calcium (8.4-10.2) mg/dL Total Bilirubin (0.2-1.3) mg/dL AST (17-59) U/L ALT (4-49) U/L Troponin I (0.000-0.034) ng/mL Total Protein (6.3-8.2) g/dL Albumin (3.5-5.0) g/dL 06/16/20 06/16/20 06/16/20 Range/Units 18:14 19:01 20:11 RBC (4.30-5.90) m/uL Hgb (13.0-17.5) gm/dL Hct (39.0-53.0) % RDW (11.5-15.5) % Plt Count (150-450) k/uL Neutrophils # (1.3-7.7) k/uL ABG HCO3 (21-25) mmol/L ABG Total CO2 (19-24) mmol/L ABG O2 Saturation (94-97) % Sodium (137-145) mmol/L BUN (9-20) mg/dL Creatinine (0.66-1.25) mg/dL Glucose (74-99) mg/dL POC Glucose (mg/dL) 127 H 148 H 127 H (75-99) mg/dL Calcium (8.4-10.2) mg/dL Total Bilirubin (0.2-1.3) mg/dL AST (17-59) U/L ALT (4-49) U/L Troponin I (0.000-0.034) ng/mL Total Protein (6.3-8.2) g/dL Albumin (3.5-5.0) g/dL 06/16/20 06/16/20 06/16/20 Range/Units 20:19 20:59 22:25 RBC (4.30-5.90) m/uL Hgb (13.0-17.5) gm/dL Hct (39.0-53.0) % RDW (11.5-15.5) % Plt Count (150-450) k/uL Neutrophils # (1.3-7.7) k/uL ABG HCO3 (21-25) mmol/L ABG Total CO2 (19-24) mmol/L ABG O2 Saturation (94-97) % Sodium (137-145) mmol/L BUN (9-20) mg/dL Creatinine (0.66-1.25) mg/dL Glucose (74-99) mg/dL POC Glucose (mg/dL) 134 H 170 H (75-99) mg/dL Calcium (8.4-10.2) mg/dL Total Bilirubin (0.2-1.3) mg/dL AST (17-59) U/L ALT (4-49) U/L Troponin I 42.600 H* (0.000-0.034) ng/mL Total Protein (6.3-8.2) g/dL Albumin (3.5-5.0) g/dL 06/16/20 06/17/20 06/17/20 Range/Units 23:36 01:25 02:20 RBC (4.30-5.90) m/uL Hgb (13.0-17.5) gm/dL Hct (39.0-53.0) % RDW (11.5-15.5) % Plt Count (150-450) k/uL Neutrophils # (1.3-7.7) k/uL ABG HCO3 (21-25) mmol/L ABG Total CO2 (19-24) mmol/L ABG O2 Saturation (94-97) % Sodium (137-145) mmol/L BUN (9-20) mg/dL Creatinine (0.66-1.25) mg/dL Glucose (74-99) mg/dL POC Glucose (mg/dL) 154 H 160 H 155 H (75-99) mg/dL Calcium (8.4-10.2) mg/dL Total Bilirubin (0.2-1.3) mg/dL AST (17-59) U/L ALT (4-49) U/L Troponin I (0.000-0.034) ng/mL Total Protein (6.3-8.2) g/dL Albumin (3.5-5.0) g/dL 06/17/20 06/17/20 06/17/20 Range/Units 03:04 03:59 05:12 RBC 3.74 L (4.30-5.90) m/uL Hgb 11.8 L (13.0-17.5) gm/dL Hct 36.8 L (39.0-53.0) % RDW 16.4 H (11.5-15.5) % Plt Count 144 L (150-450) k/uL Neutrophils # 8.8 H (1.3-7.7) k/uL ABG HCO3 (21-25) mmol/L ABG Total CO2 (19-24) mmol/L ABG O2 Saturation (94-97) % Sodium (137-145) mmol/L BUN (9-20) mg/dL Creatinine (0.66-1.25) mg/dL Glucose (74-99) mg/dL POC Glucose (mg/dL) 163 H 172 H (75-99) mg/dL Calcium (8.4-10.2) mg/dL Total Bilirubin (0.2-1.3) mg/dL AST (17-59) U/L ALT (4-49) U/L Troponin I (0.000-0.034) ng/mL Total Protein (6.3-8.2) g/dL Albumin (3.5-5.0) g/dL 06/17/20 06/17/20 06/17/20 Range/Units 05:12 05:12 05:12 RBC (4.30-5.90) m/uL Hgb (13.0-17.5) gm/dL Hct (39.0-53.0) % RDW (11.5-15.5) % Plt Count (150-450) k/uL Neutrophils # (1.3-7.7) k/uL ABG HCO3 (21-25) mmol/L ABG Total CO2 (19-24) mmol/L ABG O2 Saturation (94-97) % Sodium 133 L (137-145) mmol/L BUN 45 H (9-20) mg/dL Creatinine 6.79 H (0.66-1.25) mg/dL Glucose 168 H (74-99) mg/dL POC Glucose (mg/dL) 175 H (75-99) mg/dL Calcium 7.9 L (8.4-10.2) mg/dL Total Bilirubin 1.4 H (0.2-1.3) mg/dL AST 484 H (17-59) U/L ALT 498 H (4-49) U/L Troponin I 28.200 H* (0.000-0.034) ng/mL Total Protein 5.5 L (6.3-8.2) g/dL Albumin 3.0 L (3.5-5.0) g/dL 06/17/20 06/17/20 06/17/20 Range/Units 06:03 07:07 08:47 RBC (4.30-5.90) m/uL Hgb (13.0-17.5) gm/dL Hct (39.0-53.0) % RDW (11.5-15.5) % Plt Count (150-450) k/uL Neutrophils # (1.3-7.7) k/uL ABG HCO3 (21-25) mmol/L ABG Total CO2 (19-24) mmol/L ABG O2 Saturation (94-97) % Sodium (137-145) mmol/L BUN (9-20) mg/dL Creatinine (0.66-1.25) mg/dL Glucose (74-99) mg/dL POC Glucose (mg/dL) 150 H 139 H 145 H (75-99) mg/dL Calcium (8.4-10.2) mg/dL Total Bilirubin (0.2-1.3) mg/dL AST (17-59) U/L ALT (4-49) U/L Troponin I (0.000-0.034) ng/mL Total Protein (6.3-8.2) g/dL Albumin (3.5-5.0) g/dL 06/17/20 Range/Units 09:51 RBC (4.30-5.90) m/uL Hgb (13.0-17.5) gm/dL Hct (39.0-53.0) % RDW (11.5-15.5) % Plt Count (150-450) k/uL Neutrophils # (1.3-7.7) k/uL ABG HCO3 (21-25) mmol/L ABG Total CO2 (19-24) mmol/L ABG O2 Saturation (94-97) % Sodium (137-145) mmol/L BUN (9-20) mg/dL Creatinine (0.66-1.25) mg/dL Glucose (74-99) mg/dL POC Glucose (mg/dL) 158 H (75-99) mg/dL Calcium (8.4-10.2) mg/dL Total Bilirubin (0.2-1.3) mg/dL AST (17-59) U/L ALT (4-49) U/L Troponin I (0.000-0.034) ng/mL Total Protein (6.3-8.2) g/dL Albumin (3.5-5.0) g/dL
[2020-06-17 12:27] LABS: Glucose,Whole Blood 170 mg/dL (75-99)
--- NOTE | 2020-06-17 12:44 | P.PN ---
Subjective Progress Note Date: 06/17/20 HISTORY OF PRESENT ILLNESS 65-year-old male one of my office patient who seen cardiology regular basis laura golden to have history of coronary disease post bypass surgery with MCDERMOTT to the LAD and [place] the graft on the left circumflex artery. Patient also with dialysis the times a week and has been doing well till few days earlier when he developed to have significant chest pain with exertion associated with significant shortness of breath ended up coming to the emergency department tested and cardiac enzymes were negative patient ended up being discharged home to see cardiology as an outpatient. Hardly finish dialysis today with patient developed to have significant midsternal chest point and along with nausea without vomiting and had significant lightheadedness. Patient ended up coming [facility] department at [facility] where was seen his CK was significantly elevated originally and the total was 2.70. Patient will be kept on heparin drip seeing cardiology and plan for heart catheter based on current symptoms. 06/15: Patient remains in the ER waiting for a cardiac stepdown bed. He has been seen by cardiology and continued on aspirin and heparin, lisinopril decreased. He is scheduled for heart catheterization this afternoon. He is also scheduled for hemodialysis tomorrow. Echocardiogram report is pending. Patient has been afebrile, heart rate 77, blood pressure 98/57, pulse ox 95% on 2 L nasal cannula. Troponins have been 2.62, 2.7, 2.69. 06/16: Yesterday, patient underwent heart catheterization and stent of the RCA with Dr. Cordero. Patient had returned to his room and around 6:30 he had a cardiopulmonary arrest. He initially was PEA and was given 4 A of epi, bicarb and shocked. He was intubated and transferred to the intensive care unit. Patient remains intubated and on mechanical ventilation with tidal volume 500, FiO2 40, PEEP of 5. He is currently on Nimbex and norepinephrine. We will plan to start insulin drip this morning. Echocardiogram reveals EF of 30-35% with severe concentric left hypertrophy. Repeat lab work reveals WBC 7.4, hemoglobin 11.5, platelet count 120. Sodium 134, potassium 5.4, BUN 15 creatinine 7.54. AST 604, ALT 418. He is followed by pulmonary medicine. Nephrology is planning for repeat hemodialysis today and he is tentatively scheduled for heart catheterization again today. Chest x-ray this morning reveals suggestive of he art failure and mild interstitial pulmonary edema. Patchy retrocardiac opacities probably atelectasis. 06/17: Patient was successfully extubated yesterday. Repeat chest x-ray reveals correlate for interstitial edema, pneumonia, difficult to exclude small effusions. He is scheduled for hemodialysis tomorrow. He currently denies having any shortness of breath. He is complaining of significant chest wall pain from CPR. Will add an IV and oral pain medications for options. He remains on norepinephrine. He has been afebrile, heart rate 75, blood pressure 121/48, pulse ox 99% on room air. Repeat blood work reveals WBC 10.6, hemoglobin 1.8. Platelet count 144. Sodium 133, potassium 5.0, chloride 99, CO2 25, BUN 45 creatinine 6.79. Total bilirubin 1.4, AST 484, ALT 498, alkaline phosphatase 106. TSH 1.02. Cortisol level 18. Patient remains on insulin drip. REVIEW OF SYSTEMS Constitutional: No fever, no chills, no night sweats. No weight change. No weakness, fatigue or lethargy. No daytime sleepiness. EENT: No headache. No blurred vision or double vision, no loss of vision. No loss of Hearing, no ringing in the ears, no dizziness. No nasal drainage or congestion. No epistaxis. No sore throat. Lungs: No shortness of breath, cough, no sputum production. No wheezing. Cardiovascular: Reports chest pain, no lower extremity edema. No palpitations. No paroxysmal nocturnal dyspnea. No orthopnea. No lightheadedness or dizziness. No syncopal episodes. Abdominal: No abdominal pain. No nausea, vomiting. No diarrhea. No constipation. No bloody or tarry stools.. No loss of appetite. Genitourinary: No dysuria, increased frequency, urgency. No urinary retention. Musculoskeletal: No myalgias. No muscle weakness, no gait dysfunction, no frequent falls. No back pain. No neck pain. Integumentary: No wounds, no lesions. No rash or pruritus. No unusual brui sing. No change in hair or nails. Neurologic: No aphasia. No facial droop. No change in mentation. No head injury. No headache. No paralysis. No paresthesia. Psychiatric: No depression. No anxiety. No mood swings. Endocrine: No abnormal blood sugars. No weight change. No excessive sweating or thirst. No cold intolerance. PHYSICAL EXAMINATION General Appearance: Alert, cooperative, no distress, appears stated age. Neck HEENT: Supple, no lymphadenopathy Lungs: Clear to auscultation without crackles or wheezes no rhonchi Chest Wall: Chest wall normal expansion with deep inspiration and no deformity was found on exam. Heart: Regular rate and rhythm, S1, S2 normal, no murmur, rub or gallop. Back: Symmetric, no curvature, ROM normal, no CVA tenderness. Abdomen: Soft, non-tender, bowel sounds active all four quadrants, no masses, no organomegaly. Alberts with small amount of dark urine. Extremities: Extremities normal, atraumatic, no cyanosis or edema. Fistula graft in the left forearm. Pulses: 2+ and symmetric. Skin: Skin color, texture, tugor normal, no rashes or lesions. Neurologic: Patient is awake alert and oriented 3. No neuro deficits noted. ASSESSMENT AND PLAN 1 acute coronary syndrome, acute non-ST elevated myocardial infarction. Status post heart catheterization and stent of the RCA. Patient may require repeat heart catheterization today. Echocardiogram as above. Continue aspirin 81 mg daily, Lipitor 80 mg daily, Plavix 75 mg daily, continue Ranexa 1000 mg daily. 2 cardiopulmonary arrest with cardiogenic shock. Continue norepinephrine and attempt to wean off today. 3 acute hypoxic respiratory failure secondary to cardiopulmonary arrest requiring intubation, successfully extubated. Patient followed by pulmonary medicine. 4 chest pain secondary to CPR. Low-dose Dilaudid, [place] and Tylenol added as needed for pain. 5 End-stage renal disease on hemodialysis 3 times a week which will be continued for now. Patient is scheduled for hemodialysis today and if he goes for repeat heart catheterization this will be done following procedure. 4 Hypertension, currently hypotensive. 5 Type 2 diabetes uncontrolled with hyperglycemia. Patient on insulin drip. Patient may be transitioned to insulin pump later today. 6 advance cardiomyopathy. 7 Post aortic valve placement. 8 frequent PVCs continue Ranexa. 9 hyperlipidemia: Remain on atorvastatin. 10 hypothyroidism. Continue levothyroxine 50 g daily. 11 BPH: Watch for any urinary retention. Alberts catheter in place. 12 chronic edema: Continue diuretics. 13 GI prophylaxis: Patient will be on Pepcid. 14 DVT prophylaxis: Continue anticoagulation for now. CODE STATUS: Full code. DISCHARGE PLAN Home once stabilized Impression and plan of care have been directed as dictated by the signing physician. Tomasa Atkins nurse practitioner acting as scribe for signing physician. Objective - Vital Signs Vital signs: Vital Signs Temp 98.5 F 06/17/20 04:00 Pulse 79 06/17/20 08:00 Resp 22 06/17/20 08:00 BP 108/44 06/16/20 16:44 Pulse Ox 99 06/17/20 08:00 Intake & Output 06/16/20 06/17/20 06/17/20 18:59 06:59 18:59 Intake Total 7698.358 6660.977 484.086 Output Total 320 115 16 Balance 2001.780 2894.977 468.086 Weight 107.6 kg Intake: IV 972 972 243 Pressure Bags 72 72 18 Sodium Chloride 0.9% 1, 900 900 225 000 ml @ 75 mls/hr IV . [id number] [facility]OM[facility] Rx#:[id number] Intake, IV Titration 529.396 174.977 1.086 Amount Cisatracurium 200 mg In 170.799 Sodium Chloride 0.9% 180 ml @ 2 MCG/KG/MIN 11.652 mls/hr IV .[id number] MOMO Rx #:[id number] Insulin Regular 100 unit 33.691 15.975 1.086 In Sodium Chloride 0.9% 100 ml @ Per Protocol IV .Q0M [facility] Rx#:[id number] Norepinephrine 32 mg In 209.613 159.002 Sodium Chloride 0.9% 218 ml @ 0.05 MCG/KG/MIN 2. 276 mls/hr IV .Q24H [facility]OM[facility] Rx#:[id number] propofoL 1,000 mg In 115.293 Empty Bag 1 bag @ Titrate IV .Q0M MOMO Rx#: [id number] Oral 50 240 Other 90 Output: Gastric Drainage 250 Urine 70 115 16 Hemodialysis 0 Other: Voiding Method Indwelling Catheter Indwelling Catheter Indwelling Catheter # Bowel Movements 0 ABP, PAP, CO, CI - Last Documented Arterial Blood Pressure 125/48 - Labs CBC & Chem 7: 06/17/20 05:12 06/17/20 05:12 Labs: Abnormal Lab Results - Last 24 Hours (Table) 06/16/20 06/16/20 06/16/20 Range/Units 09:02 10:31 11:23 RBC (4.30-5.90) m/uL Hgb (13.0-17.5) gm/dL Hct (39.0-53.0) % RDW (11.5-15.5) % Plt Count (150-450) k/uL Neutrophils # (1.3-7.7) k/uL ABG HCO3 (21-25) mmol/L ABG Total CO2 (19-24) mmol/L ABG O2 Saturation (94-97) % Sodium (137-145) mmol/L BUN (9-20) mg/dL Creatinine (0.66-1.25) mg/dL Glucose (74-99) mg/dL POC Glucose (mg/dL) 272 H 303 H 234 H (75-99) mg/dL Calcium (8.4-10.2) mg/dL Total Bilirubin (0.2-1.3) mg/dL AST (17-59) U/L ALT (4-49) U/L Troponin I (0.000-0.034) ng/mL Total Protein (6.3-8.2) g/dL Albumin (3.5-5.0) g/dL 06/16/20 06/16/20 06/16/20 Range/Units 12:16 13:15 13:54 RBC (4.30-5.90) m/uL Hgb (13.0-17.5) gm/dL Hct (39.0-53.0) % RDW (11.5-15.5) % Plt Count (150-450) k/uL Neutrophils # (1.3-7.7) k/uL ABG HCO3 (21-25) mmol/L ABG Total CO2 (19-24) mmol/L ABG O2 Saturation (94-97) % Sodium (137-145) mmol/L BUN (9-20) mg/dL Creatinine (0.66-1.25) mg/dL Glucose (74-99) mg/dL POC Glucose (mg/dL) 146 H 135 H (75-99) mg/dL Calcium (8.4-10.2) mg/dL Total Bilirubin (0.2-1.3) mg/dL AST (17-59) U/L ALT (4-49) U/L Troponin I 54.600 H* (0.000-0.034) ng/mL Total Protein (6.3-8.2) g/dL Albumin (3.5-5.0) g/dL 06/16/20 06/16/20 06/16/20 Range/Units 15:03 16:30 16:32 RBC (4.30-5.90) m/uL Hgb (13.0-17.5) gm/dL Hct (39.0-53.0) % RDW (11.5-15.5) % Plt Count (150-450) k/uL Neutrophils # (1.3-7.7) k/uL ABG HCO3 (21-25) mmol/L ABG Total CO2 (19-24) mmol/L ABG O2 Saturation (94-97) % Sodium (137-145) mmol/L BUN (9-20) mg/dL Creatinine (0.66-1.25) mg/dL Glucose (74-99) mg/dL POC Glucose (mg/dL) 106 H 49 L 50 L (75-99) mg/dL Calcium (8.4-10.2) mg/dL Total Bilirubin (0.2-1.3) mg/dL AST (17-59) U/L ALT (4-49) U/L Troponin I (0.000-0.034) ng/mL Total Protein (6.3-8.2) g/dL Albumin (3.5-5.0) g/dL 06/16/20 06/16/20 06/16/20 Range/Units 16:50 17:12 17:53 RBC (4.30-5.90) m/uL Hgb (13.0-17.5) gm/dL Hct (39.0-53.0) % RDW (11.5-15.5) % Plt Count (150-450) k/uL Neutrophils # (1.3-7.7) k/uL ABG HCO3 27 H (21-25) mmol/L ABG Total CO2 28 H (19-24) mmol/L ABG O2 Saturation 97.4 H (94-97) % Sodium (137-145) mmol/L BUN (9-20) mg/dL Creatinine (0.66-1.25) mg/dL Glucose (74-99) mg/dL POC Glucose (mg/dL) 140 H 122 H (75-99) mg/dL Calcium (8.4-10.2) mg/dL Total Bilirubin (0.2-1.3) mg/dL AST (17-59) U/L ALT (4-49) U/L Troponin I (0.000-0.034) ng/mL Total Protein (6.3-8.2) g/dL Albumin (3.5-5.0) g/dL 06/16/20 06/16/20 06/16/20 Range/Units 18:14 19:01 20:11 RBC (4.30-5.90) m/uL Hgb (13.0-17.5) gm/dL Hct (39.0-53.0) % RDW (11.5-15.5) % Plt Count (150-450) k/uL Neutrophils # (1.3-7.7) k/uL ABG HCO3 (21-25) mmol/L ABG Total CO2 (19-24) mmol/L ABG O2 Saturation (94-97) % Sodium (137-145) mmol/L BUN (9-20) mg/dL Creatinine (0.66-1.25) mg/dL Glucose (74-99) mg/dL POC Glucose (mg/dL) 127 H 148 H 127 H (75-99) mg/dL Calcium (8.4-10.2) mg/dL Total Bilirubin (0.2-1.3) mg/dL AST (17-59) U/L ALT (4-49) U/L Troponin I (0.000-0.034) ng/mL Total Protein (6.3-8.2) g/dL Albumin (3.5-5.0) g/dL 06/16/20 06/16/20 06/16/20 Range/Units 20:19 20:59 22:25 RBC (4.30-5.90) m/uL Hgb (13.0-17.5) gm/dL Hct (39.0-53.0) % RDW (11.5-15.5) % Plt Count (150-450) k/uL Neutrophils # (1.3-7.7) k/uL ABG HCO3 (21-25) mmol/L ABG Total CO2 (19-24) mmol/L ABG O2 Saturation (94-97) % Sodium (137-145) mmol/L BUN (9-20) mg/dL Creatinine (0.66-1.25) mg/dL Glucose (74-99) mg/dL POC Glucose (mg/dL) 134 H 170 H (75-99) mg/dL Calcium (8.4-10.2) mg/dL Total Bilirubin (0.2-1.3) mg/dL AST (17-59) U/L ALT (4-49) U/L Troponin I 42.600 H* (0.000-0.034) ng/mL Total Protein (6.3-8.2) g/dL Albumin (3.5-5.0) g/dL 06/16/20 06/17/20 06/17/20 Range/Units 23:36 01:25 02:20 RBC (4.30-5.90) m/uL Hgb (13.0-17.5) gm/dL Hct (39.0-53.0) % RDW (11.5-15.5) % Plt Count (150-450) k/uL Neutrophils # (1.3-7.7) k/uL ABG HCO3 (21-25) mmol/L ABG Total CO2 (19-24) mmol/L ABG O2 Saturation (94-97) % Sodium (137-145) mmol/L BUN (9-20) mg/dL Creatinine (0.66-1.25) mg/dL Glucose (74-99) mg/dL POC Glucose (mg/dL) 154 H 160 H 155 H (75-99) mg/dL Calcium (8.4-10.2) mg/dL Total Bilirubin (0.2-1.3) mg/dL AST (17-59) U/L ALT (4-49) U/L Troponin I (0.000-0.034) ng/mL Total Protein (6.3-8.2) g/dL Albumin (3.5-5.0) g/dL 06/17/20 06/17/20 06/17/20 Range/Units 03:04 03:59 05:12 RBC 3.74 L (4.30-5.90) m/uL Hgb 11.8 L (13.0-17.5) gm/dL Hct 36.8 L (39.0-53.0) % RDW 16.4 H (11.5-15.5) % Plt Count 144 L (150-450) k/uL Neutrophils # 8.8 H (1.3-7.7) k/uL ABG HCO3 (21-25) mmol/L ABG Total CO2 (19-24) mmol/L ABG O2 Saturation (94-97) % Sodium (137-145) mmol/L BUN (9-20) mg/dL Creatinine (0.66-1.25) mg/dL Glucose (74-99) mg/dL POC Glucose (mg/dL) 163 H 172 H (75-99) mg/dL Calcium (8.4-10.2) mg/dL Total Bilirubin (0.2-1.3) mg/dL AST (17-59) U/L ALT (4-49) U/L Troponin I (0.000-0.034) ng/mL Total Protein (6.3-8.2) g/dL Albumin (3.5-5.0) g/dL 06/17/20 06/17/20 06/17/20 Range/Units 05:12 05:12 05:12 RBC (4.30-5.90) m/uL Hgb (13.0-17.5) gm/dL Hct (39.0-53.0) % RDW (11.5-15.5) % Plt Count (150-450) k/uL Neutrophils # (1.3-7.7) k/uL ABG HCO3 (21-25) mmol/L ABG Total CO2 (19-24) mmol/L ABG O2 Saturation (94-97) % Sodium 133 L (137-145) mmol/L BUN 45 H (9-20) mg/dL Creatinine 6.79 H (0.66-1.25) mg/dL Glucose 168 H (74-99) mg/dL POC Glucose (mg/dL) 175 H (75-99) mg/dL Calcium 7.9 L (8.4-10.2) mg/dL Total Bilirubin 1.4 H (0.2-1.3) mg/dL AST 484 H (17-59) U/L ALT 498 H (4-49) U/L Troponin I 28.200 H* (0.000-0.034) ng/mL Total Protein 5.5 L (6.3-8.2) g/dL Albumin 3.0 L (3.5-5.0) g/dL 06/17/20 06/17/20 06/17/20 Range/Units 06:03 07:07 08:47 RBC (4.30-5.90) m/uL Hgb (13.0-17.5) gm/dL Hct (39.0-53.0) % RDW (11.5-15.5) % Plt Count (150-450) k/uL Neutrophils # (1.3-7.7) k/uL ABG HCO3 (21-25) mmol/L ABG Total CO2 (19-24) mmol/L ABG O2 Saturation (94-97) % Sodium (137-145) mmol/L BUN (9-20) mg/dL Creatinine (0.66-1.25) mg/dL Glucose (74-99) mg/dL POC Glucose (mg/dL) 150 H 139 H 145 H (75-99) mg/dL Calcium (8.4-10.2) mg/dL Total Bilirubin (0.2-1.3) mg/dL AST (17-59) U/L ALT (4-49) U/L Troponin I (0.000-0.034) ng/mL Total Protein (6.3-8.2) g/dL Albumin (3.5-5.0) g/dL
[2020-06-17 14:53] LABS: Glucose,Whole Blood 227 mg/dL (75-99)
--- NOTE | 2020-06-17 15:44 | CDI ---
Documentation Clarification Form Date: 06/17/2020 03:35:38 PM From: Moon Good CCS, CCDS Admit Date: 06/14/2020 01:07:00 PM Patient Name: Master Rosales Visit Number: [id number] Discharge Date: ATTENTION: The Clinical Documentation Specialists (CDI) and [facility] Coding Staff appreciate your assistance in clarifying documentation. Please respond to the clarification below the line at the bottom and electronically sign. The CDI & [facility] Coding staff will review the response and follow-up if needed. Please note: Queries are made part of the Legal Health Record. If you have any questions, please contact the author of this message via ITS. Dr. Garry Morgan: Atrial Fibrillation is documented in the 06/14 History & Physical as "A fib with RVR: Pulse is under control currently on beta renetta with Isosorbide and Ranexa. History/Risk Factors: CAD status post CABG & multiple coronary stents, ESRD on Hemodialysis, DM II, Clinical Indicators: 65-year-old male presented to the ED with chief complaint of chest pain. Patient states this started after he walked out of dialysis this morning. Patient states he had a normal treatment. Given aspirin by EMS, took 2 nitro prior to EMS arriving which helped his pain. Admitted with NSTEMI. Procedures: 06/15 Heart Cath & PTCA with stent to RCA CODE BLUE called status post Heart Cath: V fib on monitor, patient resuscitated with CPR, intubated/extubated. EKG 06/14: Sinus rhythm with 1st degree AV block with frequent PVCs: [place], ST & T wave abnormality. Treatment: Procedures as above, Nitropaste, IV ms, IV Zofran, IV Heparin drip, Nitro sl, IV Morphine In your professional opinion, can you please clarify the type of Atrial Fibrillation, if known? Chronic/Permanent Paroxysmal Persistent Other, please specify Unable to determine (Last Revision: November 2017) MTDD
--- NOTE | 2020-06-17 15:54 | CDI ---
Documentation Clarification Form Date: 06/17/2020 03:46:20 PM From: Moon Good CCS, CCDS Admit Date: 06/14/2020 01:07:00 PM Patient Name: Master Rosales Visit Number: [id number] Discharge Date: ATTENTION: The Clinical Documentation Specialists (CDI) and [facility] Coding Staff appreciate your assistance in clarifying documentation. Please respond to the clarification below the line at the bottom and electronically sign. The CDI & [facility] Coding staff will review the response and follow-up if needed. Please note: Queries are made part of the Legal Health Record. If you have any questions, please contact the author of this message via ITS. Dr. Travis Bains: Anemia is documented in the 06/14 History & Physical as "normocytic anemia" without further specificity. History/Risk Factors: ESRD on Hemodialysis, IDDM II, CAD status post CABG & multiple stents, Anemia, Hypertension, Hyperlipidemia, Cardiomyopathy, Former smoker. Clinical indicators: Patient presented to the ED on 06/14 with chest pain, diagnosed with NSTEMI, taken to [facility] on 06/15 for heart catheterization & PTCA w/stent to RCA, subsequently went into Cardiac Arrest & Cardiogenic Shock, was intubated/extubated. stable in ICU. Hemoglobin 06/14: 12.8*, 06/15 11.5*, 06/16: 11.5*, 06/17: 11.8* Hematocrit 06/14: 38.3*, 06/15 34.9*, 06/16 36.1*, 06/17: 36.8* Treatment on admission: Nitropaste, Nitro sl, IV Nitro, IV Morphine, IV Zofran, IV Heparin drip, IV fluid 1,000 mls @ 97.069 mls/hr q10, po Plavix continued. In order to capture the severity of condition, please clarify the type of anemia and etiology if known: Chronic blood loss anemia Iron deficiency anemia xx Anemia of chronic kidney disease Anemia of chronic disease Unable to determine Other, please specify (Last Form Revision: October 2019) MTDD
--- NOTE | 2020-06-17 16:02 | CDI ---
Documentation Clarification Form Date: 06/17/2020 03:56:22 PM From: Moon Good CCS, CCDS Admit Date: 06/14/2020 01:07:00 PM Patient Name: Master Rosales Visit Number: [id number] Discharge Date: ATTENTION: The Clinical Documentation Specialists (CDI) and [facility] Coding Staff appreciate your assistance in clarifying documentation. Please respond to the clarification below the line at the bottom and electronically sign. The CDI & [facility] Coding staff will review the response and follow-up if needed. Please note: Queries are made part of the Legal Health Record. If you have any questions, please contact the author of this message via ITS. Dr. Garry Morgan: Heart Failure without further specificity is documented in the 06/14 ED Note, the 06/14 History & Physical and subsequent Consult Notes & Progress Notes. History/Risk Factors: CAD status post CABG & multiple coronary stents, Ischemic Cardiomyopathy, Heart Failure, Hypertension, Hyperlipidemia, ESRD on Hemodialysis, DM II, Former Smoker. Clinical Indicators: 65-year-old male presented to the ED with chief complaint of chest pain. Patient states this started after he walked out of dialysis this morning. Patient states he had a normal treatment. Given aspirin by EMS, took 2 nitro prior to EMS arriving which helped his pain. Admitted with NSTEMI. Procedures: 06/15 Heart Cath & PTCA with stent to RCA CODE BLUE called status post Heart Cath: V fib on monitor, patient resuscitated with CPR, intubated/extubated. EKG 06/14: Sinus rhythm with 1st degree AV block with frequent PVCs: Bigeminy, ST & T wave abnormality. 06/16 ECHO: Left ventricular size is normal. Severe concentric LVH, Overall left ventricular systolic function is moderately impaired with EF 30-35%. Treatment: Procedures as above, Nitropaste, IV ms, IV Zofran, IV Heparin drip, Nitro sl, IV Morphine In your professional opinion, can you please clarify the acuity of CHF if known? Systolic Heart Failure: o Acute o Chronic o Acute on Chronic Unable to Determine Other, please specify (Last Revision: November 2017) Query response has been documented in the Discharge Summary by the attending physician: Chronic Systolic Heart Failure. MTDD
[2020-06-17 16:06] LABS: Glucose,Whole Blood 160 mg/dL (75-99)
[2020-06-17 16:37] LABS: Hemoglobin A1C 6.9 % (4.0-6.0)
--- NOTE | 2020-06-17 17:00 | ECHOF ---
Referral Reason: MEASUREMENTS -------- HEIGHT: 175.3 cm WEIGHT: 97.1 kg BP: IVSd: 2.2 cm (0.6 - 1.1) LVIDd: 4.3 cm (3.9 - 5.3) LVPWd: 1.9 cm (0.6 - 1.1) IVSs: 2.5 cm LVIDs: 3.0 cm LVPWs: 2.3 cm LAESV Index (A-L): 50.05 ml/m MV E Alexandre: 1.28 m/s MV DecT: 189 ms MV A Alexandre: 0.73 m/s MV E/A Ratio: 1.77 AV maxP.25 mmHg AV meanP.74 mmHg AR PHT: 319 ms RAP: 5.00 mmHg RVSP: 41.40 mmHg FINDINGS -------- Sinus rhythm. This was a technically adequate study. The left ventricular size is normal. There is severe concentric left ventricular hypertrophy. Ove rall left ventricular systolic function is low-normal with, an EF between 50 - 55 %. Septal wall mo tion is delayed and consistent with prior cardiac surgery. The right ventricle is normal in size. Left atrium is severely dilated by volume. The right atrial size is normal. Interatrial and interventricular septum intact. There is mild regurgitation of the bioprosthetic aortic valve. 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 Moderate mitral regurgitation is present. [id number] tricuspid regurgitation present. There is mild to moderate pulmonary hypertension. The right ventricular systolic pressure, as measured by Doppler, is 41.40mmHg. There is no pulmonic regurgitation present. The aortic root size is normal. IVC not well visualized There is no pericardial effusion. CONCLUSIONS -------- 1. The left ventricular size is normal. 2. There is severe concentric left ventricular hypertrophy. 3. Overall left ventricular systolic function is low-normal with, an EF between 50 - 55 %. 4. Septal wall motion is delayed and consistent with prior cardiac surgery. 5. Left atrium is severely dilated by volume. 6. There is mild regurgitation of the bioprosthetic aortic valve. 7. 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 8. Moderate mitral regurgitation is present. 9. [id number] tricuspid regurgitation present. 10. There is mild to moderate pulmonary hypertension. 11. The right ventricular systolic pressure, as measured by Doppler, is 41.40mmHg. FREIGHT ASSOCIATE: Yola Quach RDCS
[2020-06-17] MEDS: INSULIN REGULAR 100 UNIT in SODIUM CHLORIDE 0.9% 100 ML IV SCH (18:05)
[2020-06-17 18:20] LABS: Glucose,Whole Blood 139 mg/dL (75-99)
[2020-06-17 20:18] LABS: Glucose,Whole Blood 170 mg/dL (75-99)
[2020-06-17] MEDS ORDERED: FUROSEMIDE 10 MG/ML 4 ML VIAL ONE (21:52)
[2020-06-17 22:02] LABS: Glucose,Whole Blood 135 mg/dL (75-99)
[2020-06-18 00:05] LABS: Glucose,Whole Blood 126 mg/dL (75-99)
[2020-06-18 01:56] LABS: Glucose,Whole Blood 140 mg/dL (75-99)
--- NOTE | 2020-06-18 02:08 | XR ---
EXAM: XR Chest, 1 View CLINICAL HISTORY: ITS.REASON XR Reason: increased SOB TECHNIQUE: Frontal view of the chest. COMPARISON: 06/17/20. FINDINGS: Lungs: Interval increase in right greater than left lung opacities. Pleural space: See above. Heart: Stable cardiomediastinal silhouette. Mediastinum: See above. Bones/joints: Stable. Tubes, lines and devices: Left central venous catheter appears stable. IMPRESSION: Interval increase in bilateral lung opacities, likely representing pleural effusions with infiltrates or edema.
[2020-06-18] MEDS ORDERED: FUROSEMIDE 10 MG/ML 4 ML VIAL IV STA (02:19)
[2020-06-18 02:32] LABS: Calcium 7.7 mg/dL (8.4-10.2); Potassium 4.9 mmol/L (3.5-5.1); Total Bilirubin 1.5 mg/dL (0.2-1.3); Total Protein 5.6 g/dL (6.3-8.2)
[2020-06-18 02:41] LABS: Basophils # (A) 0.1 k/uL (0-0.2); Basophils % (A) 1 %; Eosinophils # (A) 0.2 k/uL (0-0.7); Eosinophils % (A) 2 %; HCT 36.1 % (39.0-53.0); HGB 11.7 gm/dL (13.0-17.5); Hypochromasia Slight; Lymphocytes # (A) 0.7 k/uL (1.0-4.8); Lymphocytes % (A) 8 %; MCH 32.1 pg (25.0-35.0); MCHC 32.5 g/dL (31.0-37.0); MCV 98.6 fL (80.0-100.0); Macrocytosis Slight; Mean Platelet Volume 7.8; Monocytes # (A) 0.4 k/uL (0-1.0); Monocytes % (A) 5 %; Neutrophils % (A) 83 %; Platelet Count 123 k/uL (150-450); RBC 3.66 m/uL (4.30-5.90); RDW 15.9 % (11.5-15.5); WBC 8.5 k/uL (3.8-10.6)
[2020-06-18] MEDS: HYDROmorphone 0.5 MG/0.5 ML SYRINGE IVP PRN ×3 (06:08→23:57)
[2020-06-18] MEDS: SODIUM CHLORIDE 0.9% 1,000 ML IV SCH (06:10)
[2020-06-18 06:17] LABS: Glucose,Whole Blood 120 mg/dL (75-99)
[2020-06-18] MEDS: LEVOTHYROXINE 50 MCG TAB PO SCH (07:17)
[2020-06-18] MEDS: SEVELAMER 800 MG TAB PO SCH ×3 (07:17→19:13)
--- NOTE | 2020-06-18 08:05 | XR ---
EXAMINATION TYPE: XR chest 1V DATE OF EXAM: 06/18/2020 COMPARISON: 06/18/2020 HISTORY: 65-year-old male pneumonia TECHNIQUE: Single frontal view of the chest is obtained. FINDINGS: Left CVC tip at the lower SVC. Heart is moderately enlarged. Diffuse interstitial density and more co nfluent mid and lower lung opacities, right greater than left. Underlying effusions are suggested. Ov erall appearance is unchanged. IMPRESSION: Continued confluent airspace disease mid and lower lungs, right greater than left, with underlying ef fusions, not significantly changed.
[2020-06-18] MEDS: IPRATROPIUM-ALBUTEROL 3 ML NEB INHALATION SCH ×4 (08:14→19:20)
[2020-06-18] MEDS: ATORVASTATIN 80 MG TAB PO SCH (08:24)
[2020-06-18] MEDS: ASPIRIN 81 MG PO SCH (08:24)
[2020-06-18] MEDS: CLOPIDOGREL 75 MG TAB PO SCH (08:25)
[2020-06-18] MEDS: FOLIC ACID-VIT B COMPLEX-VIT C 1 CAP PO SCH (08:26)
[2020-06-18] MEDS: RANOLAZINE 500 MG TAB.ER.12H PO SCH (08:27)
[2020-06-18] MEDS: HYDROCORTISONE SUCCINATE 100 MG/2 ML VIAL IV SCH ×3 (09:56→23:52)
[2020-06-18 10:01] LABS: Glucose,Whole Blood 147 mg/dL (75-99)
--- NOTE | 2020-06-18 10:06 | P.PN ---
Subjective Progress Note Date: 06/18/20 HISTORY OF PRESENT ILLNESS 65-year-old male one of my office patient who seen cardiology regular basis laura golden to have history of coronary disease post bypass surgery with [place] to the LAD and [place] the graft on the left circumflex artery. Patient also with dialysis the times a week and has been doing well till few days earlier when he developed to have significant chest pain with exertion associated with significant shortness of breath ended up coming to the emergency department tested and cardiac enzymes were negative patient ended up being discharged home to see cardiology as an outpatient. Hardly finish dialysis today with patient developed to have significant midsternal chest point and along with nausea without vomiting and had significant lightheadedness. Patient ended up coming [facility] at [facility] where was seen his CK was significantly elevated originally and the total was 2.70. Patient will be kept on heparin drip seeing cardiology and plan for heart catheter based on current symptoms. 06/15: Patient remains in the ER waiting for a cardiac stepdown bed. He has been seen by cardiology and continued on aspirin and heparin, lisinopril decreased. He is scheduled for heart catheterization this afternoon. He is also scheduled for hemodialysis tomorrow. Echocardiogram report is pending. Patient has been afebrile, heart rate 77, blood pressure 98/57, pulse ox 95% on 2 L nasal cannula. Troponins have been 2.62, 2.7, 2.69. 06/16: Yesterday, patient underwent heart catheterization and stent of the RCA with Dr. Cordero. Patient had returned to his room and around 6:30 he had a cardiopulmonary arrest. He initially was PEA and was given 4 A of epi, bicarb and shocked. He was intubated and transferred to the intensive care unit. Patient remains intubated and on mechanical ventilation with tidal volume 500, FiO2 40, PEEP of 5. He is currently on Nimbex and norepinephrine. We will plan to start insulin drip this morning. Echocardiogram reveals EF of 30-35% with severe concentric left hypertrophy. Repeat lab work reveals WBC 7.4, hemoglobin 11.5, platelet count 120. Sodium 134, potassium 5.4, BUN 15 creatinine 7.54. AST 604, ALT 418. He is followed by pulmonary medicine. Nephrology is planning for repeat hemodialysis today and he is tentatively scheduled for heart catheterization again today. Chest x-ray this morning reveals suggestive of he art failure and mild interstitial pulmonary edema. Patchy retrocardiac opacities probably atelectasis. 06/17: Patient was successfully extubated yesterday. Repeat chest x-ray reveals correlate for interstitial edema, pneumonia, difficult to exclude small effusions. He is scheduled for hemodialysis tomorrow. He currently denies having any shortness of breath. He is complaining of significant chest wall pain from CPR. Will add an IV and oral pain medications for options. He remains on norepinephrine. He has been afebrile, heart rate 75, blood pressure 121/48, pulse ox 99% on room air. Repeat blood work reveals WBC 10.6, hemoglobin 1.8. Platelet count 144. Sodium 133, potassium 5.0, chloride 99, CO2 25, BUN 45 creatinine 6.79. Total bilirubin 1.4, AST 484, ALT 498, alkaline phosphatase 106. TSH 1.02. Cortisol level 18. Patient remains on insulin drip. 06/18: Patient remains in the intensive care unit on levo fed and insulin drip. He is scheduled for hemodialysis today. Patient denies any new complaints today. He does have chest pain from CPR. Mild shortness of breath. He has been afebrile, heart rate 70, blood pressure 111/48, pulse ox 96% on 4 L nasal cannula. Repeat blood work reveals WBC of 8.5, hemoglobin 11.7, platelet count 123. Sodium 133, potassium 4.93 creatinine 7.99. Blood sugars running between 126 and 140. Total bilirubin 1.5, AST 271, ALT 438. Troponin 19.9. REVIEW OF SYSTEMS Constitutional: No fever, no chills, no night sweats. No weight change. No weakness, fatigue or lethargy. No daytime sleepiness. EENT: No headache. No blurred vision or double vision, no loss of vision. No loss of Hearing, no ringing in the ears, no dizziness. No nasal drainage or congestion. No epistaxis. No sore throat. Lungs: Mild shortness of breath, cough, no sputum production. No wheezing. Cardiovascular: Reports chest pain, no lower extremity edema. No palpitations. No paroxysmal nocturnal dyspnea. No orthopnea. No lightheadedness or di zziness. No syncopal episodes. Abdominal: No abdominal pain. No nausea, vomiting. No diarrhea. No constipation. No bloody or tarry stools.. No loss of appetite. Genitourinary: No dysuria, increased frequency, urgency. No urinary retention. Musculoskeletal: No myalgias. No muscle weakness, no gait dysfunction, no frequent falls. No back pain. No neck pain. Integumentary: No wounds, no lesions. No rash or pruritus. No unusual bruising. No change in hair or nails. Neurologic: No aphasia. No facial droop. No change in mentation. No head injury. No headache. No paralysis. No paresthesia. Psychiatric: No depression. No anxiety. No mood swings. Endocrine: No abnormal blood sugars. No weight change. No excessive sweating or thirst. No cold intolerance. PHYSICAL EXAMINATION General Appearance: Alert, cooperative, no distress, appears stated age. Neck HEENT: Supple, no lymphadenopathy Lungs: Crackles in the bilateral bases more so on the left Chest Wall: Chest wall normal expansion with deep inspiration and no deformity was found on exam. Heart: Regular rate and rhythm, S1, S2 normal, no murmur, rub or gallop. Back: Symmetric, no curvature, ROM normal, no CVA tenderness. Abdomen: Soft, non-tender, bowel sounds active all four quadrants, no masses, no organomegaly. Alberts with small amount of dark urine. Extremities: Extremities normal, atraumatic, no cyanosis or edema. Fistula graft in the left forearm. Pulses: 2+ and symmetric. Skin: Skin color, texture, tugor normal, no rashes or lesions. Neurologic: Patient is awake alert and oriented 3. No neuro deficits noted. ASSESSMENT AND PLAN 1 acute coronary syndrome, acute non-ST elevated myocardial infarction. Status post heart catheterization and stent of the RCA. Echocardiogram as above. Continue aspirin 81 mg daily, Lipitor 80 mg daily, Plavix 75 mg daily, continue Ranexa 1000 mg daily. 2 cardiopulmonary arrest with cardiogenic shock. Continue norepinephrine and attempt to wean off today. 3 acute hypoxic respiratory failure secondary to cardiopulmonary arrest requiring intubation, successfully extubated. Patient followed by pulmonary medicine. Currently on 4 L nasal cannula 4 chest pain secondary to CPR. Low-dose Dilaudid, [place] and Tylenol added as needed for pain. 5 End-stage renal disease on hemodialysis 3 times a week which will be continued for now. Patient is scheduled for hemodialysis today and if he goes for repeat heart catheterization this will be done following procedure. 4 Hypertension, currently hypotensive. 5 Type 2 diabetes uncontrolled with hyperglycemia. Patient on insulin drip. Patient may be transitioned to insulin pump later today. 6 advance cardiomyopathy. 7 Post aortic valve placement. 8 frequent PVCs continue Ranexa. 9 hyperlipidemia: Remain on atorvastatin. 10 hypothyroidism. Continue levothyroxine 50 g daily. 11 BPH: Watch for any urinary retention. Alberts catheter in place. 12 chronic edema: Continue diuretics. 13 GI prophylaxis: Patient will be on Pepcid. 14 DVT prophylaxis: Continue anticoagulation for now. 15 chronic thrombocytopenia. 16 elevated liver function tests secondary to shock liver. 17. Anemia of chronic kidney disease. CODE STATUS: Full code. DISCHARGE PLAN Home once stabilized Impression and plan of care have been directed as dictated by the signing physician. Tomasa Atkins nurse practitioner acting as scribe for signing physician. Objective - Vital Signs Vital signs: Vital Signs Temp 98 F 06/18/20 08:00 Pulse 77 06/18/20 08:26 Resp 19 06/18/20 08:00 BP 108/44 06/16/20 16:44 Pulse Ox 96 06/18/20 08:15 Intake & Output 06/17/20 06/18/20 06/18/20 18:59 06:59 18:59 Intake Total 1625.392 759.075 26 Output Total 66 140 25 Balance 1559.392 619.075 1 Weight 107.6 kg 111.5 kg Intake: IV 963 613 26 Pressure Bags 63 78 6 Sodium Chloride 0.9% 1, 900 535 20 000 ml @ 75 mls/hr IV . [id number] MOMO Rx#:[id number] Intake, IV Titration 182.392 146.075 Amount Insulin Regular 100 unit 21.025 20.267 In Sodium Chloride 0.9% 100 ml @ Per Protocol IV .Q0M MOMO Rx#:[id number] Norepinephrine 32 mg In 161.367 125.808 Sodium Chloride 0.9% 218 ml @ 0.05 MCG/KG/MIN 2. 276 mls/hr IV .Q24H MOMO Rx#:[id number] Oral 480 Output: Urine 66 140 25 Other: Voiding Method Indwelling Catheter Indwelling Catheter Indwelling Catheter # Bowel Movements 0 ABP, PAP, CO, CI - Last Documented Arterial Blood Pressure 111/48 - Labs CBC & Chem 7: 06/18/20 01:53 06/18/20 01:53 Labs: Abnormal Lab Results - Last 24 Hours (Table) 06/17/20 06/17/20 06/17/20 Range/Units 05:12 09:51 12:26 RBC (4.30-5.90) m/uL Hgb (13.0-17.5) gm/dL Hct (39.0-53.0) % RDW (11.5-15.5) % Plt Count (150-450) k/uL Lymphocytes # (1.0-4.8) k/uL Sodium (137-145) mmol/L BUN (9-20) mg/dL Creatinine (0.66-1.25) mg/dL Glucose (74-99) mg/dL POC Glucose (mg/dL) 158 H 170 H (75-99) mg/dL Hemoglobin A1c 6.9 H (4.0-6.0) % Calcium (8.4-10.2) mg/dL Total Bilirubin (0.2-1.3) mg/dL AST (17-59) U/L ALT (4-49) U/L Troponin I (0.000-0.034) ng/mL Total Protein (6.3-8.2) g/dL Albumin (3.5-5.0) g/dL 06/17/20 06/17/20 06/17/20 Range/Units 14:51 16:04 18:18 RBC (4.30-5.90) m/uL Hgb (13.0-17.5) gm/dL Hct (39.0-53.0) % RDW (11.5-15.5) % Plt Count (150-450) k/uL Lymphocytes # (1.0-4.8) k/uL Sodium (137-145) mmol/L BUN (9-20) mg/dL Creatinine (0.66-1.25) mg/dL Glucose (74-99) mg/dL POC Glucose (mg/dL) 227 H 160 H 139 H (75-99) mg/dL Hemoglobin A1c (4.0-6.0) % Calcium (8.4-10.2) mg/dL Total Bilirubin (0.2-1.3) mg/dL AST (17-59) U/L ALT (4-49) U/L Troponin I (0.000-0.034) ng/mL Total Protein (6.3-8.2) g/dL Albumin (3.5-5.0) g/dL 06/17/20 06/17/20 06/18/20 Range/Units 20:17 22:00 00:04 RBC (4.30-5.90) m/uL Hgb (13.0-17.5) gm/dL Hct (39.0-53.0) % RDW (11.5-15.5) % Plt Count (150-450) k/uL Lymphocytes # (1.0-4.8) k/uL Sodium (137-145) mmol/L BUN (9-20) mg/dL Creatinine (0.66-1.25) mg/dL Glucose (74-99) mg/dL POC Glucose (mg/dL) 170 H 135 H 126 H (75-99) mg/dL Hemoglobin A1c (4.0-6.0) % Calcium (8.4-10.2) mg/dL Total Bilirubin (0.2-1.3) mg/dL AST (17-59) U/L ALT (4-49) U/L Troponin I (0.000-0.034) ng/mL Total Protein (6.3-8.2) g/dL Albumin (3.5-5.0) g/dL 06/18/20 06/18/20 06/18/20 Range/Units 01:53 01:53 01:53 RBC 3.66 L (4.30-5.90) m/uL Hgb 11.7 L (13.0-17.5) gm/dL Hct 36.1 L (39.0-53.0) % RDW 15.9 H (11.5-15.5) % Plt Count 123 L (150-450) k/uL Lymphocytes # 0.7 L (1.0-4.8) k/uL Sodium 133 L (137-145) mmol/L BUN 57 H (9-20) mg/dL Creatinine 7.99 H* (0.66-1.25) mg/dL Glucose 137 H (74-99) mg/dL POC Glucose (mg/dL) (75-99) mg/dL Hemoglobin A1c (4.0-6.0) % Calcium 7.7 L (8.4-10.2) mg/dL Total Bilirubin 1.5 H (0.2-1.3) mg/dL AST 271 H (17-59) U/L ALT 438 H (4-49) U/L Troponin I 19.900 H* (0.000-0.034) ng/mL Total Protein 5.6 L (6.3-8.2) g/dL Albumin 3.0 L (3.5-5.0) g/dL 06/18/20 06/18/20 Range/Units 01:54 06:15 RBC (4.30-5.90) m/uL Hgb (13.0-17.5) gm/dL Hct (39.0-53.0) % RDW (11.5-15.5) % Plt Count (150-450) k/uL Lymphocytes # (1.0-4.8) k/uL Sodium (137-145) mmol/L BUN (9-20) mg/dL Creatinine (0.66-1.25) mg/dL Glucose (74-99) mg/dL POC Glucose (mg/dL) 140 H 120 H (75-99) mg/dL Hemoglobin A1c (4.0-6.0) % Calcium (8.4-10.2) mg/dL Total Bilirubin (0.2-1.3) mg/dL AST (17-59) U/L ALT (4-49) U/L Troponin I (0.000-0.034) ng/mL Total Protein (6.3-8.2) g/dL Albumin (3.5-5.0) g/dL
[2020-06-18] MEDS: HYDROcodone/APAP 5-325MG 1 EACH TAB PO PRN ×2 (10:36→16:04)
--- NOTE | 2020-06-18 10:50 | P.PN ---
Subjective Progress Note Date: 06/18/20 Principal diagnosis: The patient is seen today in follow-up in the intensive care unit. He was admitted to the hospital after developing chest pain following dialysis. He presented to the emergency room and found to have an acute coronary syndrome with a non-ST segment elevation myocardial infarction. He had gone to [facility] and had a stent placed to the right coronary artery. Soon after that he had a cardiac arrest and had approximately 12 minutes of resuscitation. He did have return of spontaneous circulation. He is seen today in follow-up. He remains intubated on mechanical ventilator. Current settings assist-control of 18, tidal volume 500, FiO2 40% and a PEEP of 5. Arterial blood gases drawn this morning on 50% FiO2 revealed a pCO2 of 119, CO2 42, pH 7.43. He remains sedated on propofol at 25 mcg/kg/m. He's on Nimbex at 2 mcg/kg/m. He is requiring norepinephrine at 39 mcg/m. He is on insulin drip at 8 units per hour. 0.9 normal saline at 75 ML's per hour. His echocardiogram revealed ejection fraction of 30-35%. CVP running about 12. Chest x-ray reveals evidence of congestive heart failure with mild interstitial pulmonary edema. Patchy retrocardiac opacity suspected to be atelectasis. White count 7.4. Hemoglobin 11.5. Platelet count 120,000. Sodium 134. Potassium 5.4. BUN 50. Creatinine 7.54. AST 604. ALT 418. Remains on DuoNeb inhalations. The patient is seen today in 06/17/2020 and follow-up in the intensive care unit . He was successfully extubated yesterday. Currently he is awake and alert and doing well. He is on oxygen at 3 L/m per nasal cannula. He has 0.9 normal saline at 75 ML's per hour. He is still requiring norepinephrine at 25 mcg/m. He is on a insulin drip at 1.5 units per hour. This is day #2 following stent to the RCA. He was an Non-STEMI. White count 10.6. Hemoglobin 11.8. Sodium 133. Potassium 5.0. Creatinine 6.79. AST 11/08/1983. ALT 498. Troponin 28.2. Chest x-ray reveals interstitial edema with small effusions. The patient is seen today 06/18/2020 in follow-up in the intensive care unit. He is currently awake and alert in no acute distress. Last evening he developed increasing shortness of breath and low O2 saturations. He was placed on BiPAP 12/5 and 50% FiO2. He was given Lasix 40 mg IV push times one. Chest x-ray reveals evidence of fluid volume overload. He did receive hemodialysis yesterday and the plans are for repeat today. He is still requiring nor epinephrine 18 mcg/m. He is on insulin drip at 0.5 units per hour. 0.9, Sinemet 20 ML's per hour. White count 8.5. Hemoglobin 11.7. Platelet count 123,000. 2133. Potassium 4.9. BUN 57. Creatinine 7.99. AST 271. ALT 438. Troponin 19.9. Serum cortisol level 18. Objective - Vital Signs Vital signs: Vital Signs Temp 98 F 06/18/20 08:00 Pulse 78 06/18/20 10:00 Resp 16 06/18/20 10:00 BP 108/44 06/16/20 16:44 Pulse Ox 98 06/18/20 10:00 Intake & Output 06/17/20 06/18/20 06/18/20 18:59 06:59 18:59 Intake Total 1625.392 759.075 80.188 Output Total 66 140 25 Balance 1559.392 619.075 55.188 Weight 107.6 kg 111.5 kg Intake: IV 963 613 78 Pressure Bags 63 78 18 Sodium Chloride 0.9% 1, 900 535 60 000 ml @ 75 mls/hr IV . [id number] MOMO Rx#:[id number] Intake, IV Titration 182.392 146.075 2.188 Amount Insulin Regular 100 unit 21.025 20.267 2.188 In Sodium Chloride 0.9% 100 ml @ Per Protocol IV .Q0M MOMO Rx#:[id number] Norepinephrine 32 mg In 161.367 125.808 Sodium Chloride 0.9% 218 ml @ 0.05 MCG/KG/MIN 2. 276 mls/hr IV .Q24H MOMO Rx#:[id number] Oral 480 Output: Urine 66 140 25 Other: Voiding Method Indwelling Catheter Indwelling Catheter Indwelling Catheter # Bowel Movements 0 ABP, PAP, CO, CI - Last Documented Arterial Blood Pressure 110/52 - Exam GENERAL EXAM: Awake, alert, very pleasant 65-year-old gentleman, on 4 L nasal cannula,, comfortable in no apparent distress. HEAD: Normocephalic. EYES: Sluggish reaction of pupils, equal size. NOSE: Clear with pink turbinates. THROAT: Oral endotracheal and gastric tube secured in place. No erythema or exudates. NECK: No masses, no JVD. Left internal jugular triple-lumen catheter in place. CHEST: No chest wall deformity. LUNGS: Equal air entry with crackles in the bilateral posterior bases, right greater than left. CVS: S1 and S2 normal with no audible murmur, regular rhythm. ABDOMEN: No hepatosplenomegaly, normal bowel sounds, no guarding or rigidity. SPINE: No scoliosis or deformity SKIN: No rashes CENTRAL NERVOUS SYSTEM: No focal deficits. Tone is normal in all 4 extremities. EXTREMITIES: There is no peripheral edema. No clubbing, no cyanosis. Peripheral pulses are intact. - Labs CBC & Chem 7: 06/18/20 01:53 06/18/20 01:53 Labs: Abnormal Lab Results - Last 24 Hours (Table) 06/17/20 06/17/20 06/17/20 Range/Units 05:12 12:26 14:51 RBC (4.30-5.90) m/uL Hgb (13.0-17.5) gm/dL Hct (39.0-53.0) % RDW (11.5-15.5) % Plt Count (150-450) k/uL Lymphocytes # (1.0-4.8) k/uL Sodium (137-145) mmol/L BUN (9-20) mg/dL Creatinine (0.66-1.25) mg/dL Glucose (74-99) mg/dL POC Glucose (mg/dL) 170 H 227 H (75-99) mg/dL Hemoglobin A1c 6.9 H (4.0-6.0) % Calcium (8.4-10.2) mg/dL Total Bilirubin (0.2-1.3) mg/dL AST (17-59) U/L ALT (4-49) U/L Troponin I (0.000-0.034) ng/mL Total Protein (6.3-8.2) g/dL Albumin (3.5-5.0) g/dL 1106/17/20 06/17/20 Range/Units 16:04 18:18 20:17 RBC (4.30-5.90) m/uL Hgb (13.0-17.5) gm/dL Hct (39.0-53.0) % RDW (11.5-15.5) % Plt Count (150-450) k/uL Lymphocytes # (1.0-4.8) k/uL Sodium (137-145) mmol/L BUN (9-20) mg/dL Creatinine (0.66-1.25) mg/dL Glucose (74-99) mg/dL POC Glucose (mg/dL) 160 H 139 H 170 H (75-99) mg/dL Hemoglobin A1c (4.0-6.0) % Calcium (8.4-10.2) mg/dL Total Bilirubin (0.2-1.3) mg/dL AST (17-59) U/L ALT (4-49) U/L Troponin I (0.000-0.034) ng/mL Total Protein (6.3-8.2) g/dL Albumin (3.5-5.0) g/dL 06/17/20 06/18/20 06/18/20 Range/Units 22:00 00:04 01:53 RBC 3.66 L (4.30-5.90) m/uL Hgb 11.7 L (13.0-17.5) gm/dL Hct 36.1 L (39.0-53.0) % RDW 15.9 H (11.5-15.5) % Plt Count 123 L (150-450) k/uL Lymphocytes # 0.7 L (1.0-4.8) k/uL Sodium (137-145) mmol/L BUN (9-20) mg/dL Creatinine (0.66-1.25) mg/dL Glucose (74-99) mg/dL POC Glucose (mg/dL) 135 H 126 H (75-99) mg/dL Hemoglobin A1c (4.0-6.0) % Calcium (8.4-10.2) mg/dL Total Bilirubin (0.2-1.3) mg/dL AST (17-59) U/L ALT (4-49) U/L Troponin I (0.000-0.034) ng/mL Total Protein (6.3-8.2) g/dL Albumin (3.5-5.0) g/dL 06/18/20 06/18/20 06/18/20 Range/Units 01:53 01:53 01:54 RBC (4.30-5.90) m/uL Hgb (13.0-17.5) gm/dL Hct (39.0-53.0) % RDW (11.5-15.5) % Plt Count (150-450) k/uL Lymphocytes # (1.0-4.8) k/uL Sodium 133 L (137-145) mmol/L BUN 57 H (9-20) mg/dL Creatinine 7.99 H* (0.66-1.25) mg/dL Glucose 137 H (74-99) mg/dL POC Glucose (mg/dL) 140 H (75-99) mg/dL Hemoglobin A1c (4.0-6.0) % Calcium 7.7 L (8.4-10.2) mg/dL Total Bilirubin 1.5 H (0.2-1.3) mg/dL AST 271 H (17-59) U/L ALT 438 H (4-49) U/L Troponin I 19.900 H* (0.000-0.034) ng/mL Total Protein 5.6 L (6.3-8.2) g/dL Albumin 3.0 L (3.5-5.0) g/dL 06/18/20 06/18/20 Range/Units 06:15 10:00 RBC (4.30-5.90) m/uL Hgb (13.0-17.5) gm/dL Hct (39.0-53.0) % RDW (11.5-15.5) % Plt Count (150-450) k/uL Lymphocytes # (1.0-4.8) k/uL Sodium (137-145) mmol/L BUN (9-20) mg/dL Creatinine (0.66-1.25) mg/dL Glucose (74-99) mg/dL POC Glucose (mg/dL) 120 H 147 H (75-99) mg/dL Hemoglobin A1c (4.0-6.0) % Calcium (8.4-10.2) mg/dL Total Bilirubin (0.2-1.3) mg/dL AST (17-59) U/L ALT (4-49) U/L Troponin I (0.000-0.034) ng/mL Total Protein (6.3-8.2) g/dL Albumin (3.5-5.0) g/dL Assessment and Plan Assessment: 1 Non-ST segment elevation myocardial infarction, status post placement to the RCA, status post cardiopulmonary arrest. 2 Acute hypoxemic respiratory failure secondary to above requiring intubation mechanical ventilatory support 3 Profound hypotension, shock, requiring pressor support 4 Severe ischemic cardiomyopathy with ejection fraction 30-35% 5 History of previous aortic valve replacement and coronary artery bypass grafting 2 6 Diabetes mellitus 7 Diabetic neuropathy 8 End-stage renal disease receiving dialysis Sunday 9 Hyperlipidemia 10 History of hypertension 11 Chronic anemia 12 Elevated liver enzymes in secondary to cardiogenic shock Plan: The patient was seen and evaluated by Dr. Umanzor Chest x-ray, labs reviewed Add hydrocortisone 100 mg IV every 8 hours Continue to utilize BiPAP as needed To receive hemodialysis today Continue the current treatment plan Titrate down the FiO2 as tolerated Titrate down the norepinephrine as tolerated We will continue to follow and make further recommendations based on his clinical status I, the cosigning physician, performed a history & physical examination of the patient. Lungs sounds with bilateral crackles in the posterior uses, right greater than left. Maintaining good O2 saturations in the 90s on 4 L/m per nasal cannula. I discussed the assessment and plan of care with my nurse pr actitioner, Yue Espino. I attest to the above note as dictated by her. Time with Patient: Greater than 30
--- NOTE | 2020-06-18 11:59 | P.PN ---
Subjective Progress Note Date: 06/18/20 Principal diagnosis: Chest pain This is a pleasant 65-year-old gentleman was coronary artery disease and prior revascularization was admitted to the hospital with chest discomfort and ruled in for acute coronary event. He underwent a heart catheterization was subsequently stenting of the right coronary artery. The procedure was uneventful. Post procedure he went into cardiopulmonary arrest was PEA. Subsequently the patient was intubated and then he was extubated. He was seen today. He is asymptomatic from the cardiovascular standpoint overview. He continues to be hemodynamically unstable and requiring vasopressors was no epinephrine. Pulmonary/critical care team is on the case. He was on dual antiplatelet therapy at this point. Beside that he is on statin was Lipitor which I am going to discontinue because of the liver function tests. The plan is to try to wean the patient from vasopressors. Repeated echo revealed impaired LV function was EF around 35-40%. Objective - Vital Signs Vital signs: Vital Signs Temp 98 F 06/18/20 08:00 Pulse 78 06/18/20 10:00 Resp 16 06/18/20 10:00 BP 108/44 06/16/20 16:44 Pulse Ox 98 06/18/20 10:00 Intake & Output 06/17/20 06/18/20 06/18/20 18:59 06:59 18:59 Intake Total 1625.392 759.075 80.188 Output Total 66 140 25 Balance 1559.392 619.075 55.188 Weight 107.6 kg 111.5 kg Intake: IV 963 613 78 Pressure Bags 63 78 18 Sodium Chloride 0.9% 1, 900 535 60 000 ml @ 75 mls/hr IV . [id number] [facility] Rx#:[id number] Intake, IV Titration 182.392 146.075 2.188 Amount Insulin Regular 100 unit 21.025 20.267 2.188 In Sodium Chloride 0.9% 100 ml @ Per Protocol IV .Q0M [facility] Rx#:[id number] Norepinephrine 32 mg In 161.367 125.808 Sodium Chloride 0.9% 218 ml @ 0.05 MCG/KG/MIN 2. 276 mls/hr IV .Q24H [facility] Rx#:[id number] Oral 480 Output: Urine 66 140 25 Other: Voiding Method Indwelling Catheter Indwelling Catheter Indwelling Catheter # Bowel Movements 0 ABP, PAP, CO, CI - Last Documented Arterial Blood Pressure 110/52 - Constitutional General appearance: Present: no acute distress - Respiratory Respiratory: bilateral: diminished - Cardiovascular Rhythm: regular Heart sounds: normal: S1, S2 - Labs CBC & Chem 7: 06/18/20 01:53 06/18/20 01:53 Labs: Abnormal Lab Results - Last 24 Hours (Table) 06/17/20 06/17/20 06/17/20 Range/Units 05:12 12:26 14:51 RBC (4.30-5.90) m/uL Hgb (13.0-17.5) gm/dL Hct (39.0-53.0) % RDW (11.5-15.5) % Plt Count (150-450) k/uL Lymphocytes # (1.0-4.8) k/uL Sodium (137-145) mmol/L BUN (9-20) mg/dL Creatinine (0.66-1.25) mg/dL Glucose (74-99) mg/dL POC Glucose (mg/dL) 170 H 227 H (75-99) mg/dL Hemoglobin A1c 6.9 H (4.0-6.0) % Calcium (8.4-10.2) mg/dL Total Bilirubin (0.2-1.3) mg/dL AST (17-59) U/L ALT (4-49) U/L Troponin I (0.000-0.034) ng/mL Total Protein (6.3-8.2) g/dL Albumin (3.5-5.0) g/dL 06/17/20 06/17/20 06/17/20 Range/Units 16:04 18:18 20:17 RBC (4.30-5.90) m/uL Hgb (13.0-17.5) gm/dL Hct (39.0-53.0) % RDW (11.5-15.5) % Plt Count (150-450) k/uL Lymphocytes # (1.0-4.8) k/uL Sodium (137-145) mmol/L BUN (9-20) mg/dL Creatinine (0.66-1.25) mg/dL Glucose (74-99) mg/dL POC Glucose (mg/dL) 160 H 139 H 170 H (75-99) mg/dL Hemoglobin A1c (4.0-6.0) % Calcium (8.4-10.2) mg/dL Total Bilirubin (0.2-1.3) mg/dL AST (17-59) U/L ALT (4-49) U/L Troponin I (0.000-0.034) ng/mL Total Protein (6.3-8.2) g/dL Albumin (3.5-5.0) g/dL 06/17/20 06/18/20 06/18/20 Range/Units 22:00 00:04 01:53 RBC 3.66 L (4.30-5.90) m/uL Hgb 11.7 L (13.0-17.5) gm/dL Hct 36.1 L (39.0-53.0) % RDW 15.9 H (11.5-15.5) % Plt Count 123 L (150-450) k/uL Lymphocytes # 0.7 L (1.0-4.8) k/uL Sodium (137-145) mmol/L BUN (9-20) mg/dL Creatinine (0.66-1.25) mg/dL Glucose (74-99) mg/dL POC Glucose (mg/dL) 135 H 126 H (75-99) mg/dL Hemoglobin A1c (4.0-6.0) % Calcium (8.4-10.2) mg/dL Total Bilirubin (0.2-1.3) mg/dL AST (17-59) U/L ALT (4-49) U/L Troponin I (0.000-0.034) ng/mL Total Protein (6.3-8.2) g/dL Albumin (3.5-5.0) g/dL 06/18/20 06/18/20 06/18/20 Range/Units 01:53 01:53 01:54 RBC (4.30-5.90) m/uL Hgb (13.0-17.5) gm/dL Hct (39.0-53.0) % RDW (11.5-15.5) % Plt Count (150-450) k/uL Lymphocytes # (1.0-4.8) k/uL Sodium 133 L (137-145) mmol/L BUN 57 H (9-20) mg/dL Creatinine 7.99 H* (0.66-1.25) mg/dL Glucose 137 H (74-99) mg/dL POC Glucose (mg/dL) 140 H (75-99) mg/dL Hemoglobin A1c (4.0-6.0) % Calcium 7.7 L (8.4-10.2) mg/dL Total Bilirubin 1.5 H (0.2-1.3) mg/dL AST 271 H (17-59) U/L ALT 438 H (4-49) U/L Troponin I 19.900 H* (0.000-0.034) ng/mL Total Protein 5.6 L (6.3-8.2) g/dL Albumin 3.0 L (3.5-5.0) g/dL 06/18/20 06/18/20 Range/Units 06:15 10:00 RBC (4.30-5.90) m/uL Hgb (13.0-17.5) gm/dL Hct (39.0-53.0) % RDW (11.5-15.5) % Plt Count (150-450) k/uL Lymphocytes # (1.0-4.8) k/uL Sodium (137-145) mmol/L BUN (9-20) mg/dL Creatinine (0.66-1.25) mg/dL Glucose (74-99) mg/dL POC Glucose (mg/dL) 120 H 147 H (75-99) mg/dL Hemoglobin A1c (4.0-6.0) % Calcium (8.4-10.2) mg/dL Total Bilirubin (0.2-1.3) mg/dL AST (17-59) U/L ALT (4-49) U/L Troponin I (0.000-0.034) ng/mL Total Protein (6.3-8.2) g/dL Albumin (3.5-5.0) g/dL Assessment and Plan Assessment: Assessment #1 acute coronary syndrome #2 status post PCI of the RCA #3 cardiopulmonary arrest #4 end stage renal disease on dialysis #5 cardiomyopathy #6 multiple comorbid conditions Plan #1 right wean the patient from the vasopressors #2 try to get the patient up and around #3 continue dual antiplatelet therapy #4 discontinue statin in view of the abnormal liver function tests
[2020-06-18 12:16] LABS: Glucose,Whole Blood 160 mg/dL (75-99)
--- NOTE | 2020-06-18 12:18 | PN ---
PROGRESS NOTE Patient is seen for followup for end-stage renal disease. He was admitted to the hospital with chest pain. He did have an acute DC and is status post cardiac catheterization and coronary stent placement. The patient had a cardiac arrest after the catheterization and he was in cardiogenic shock requiring large doses of Levophed. His hemodynamics status has significantly improved. Patient is maintained on IV fluids. He did tolerate his dialysis on 06/16/2020 and he is scheduled for hemodialysis again today. Levophed is down to 0.1 mcg/kg. The patient is awake, comfortable. He is alert and oriented x3. Denies any complaints of chest pains or shortness of breath. EXAMINATION: Blood pressure is 120/50, heart rate of 77 per minute, patient is afebrile. Examination of the heart S1, S2. Examination of the lungs, bilateral breath sounds are heard. Abdomen is soft, nontender. Examination of lower extremities shows trace edema bilaterally. LABORATORY TECH exam is grossly intact. LAB: Show sodium of 133, potassium 4.9, chloride 99, BUN 57, serum creatinine 7.9, hemoglobin 11.7 g/dL. Troponin is 19. ASSESSMENT: 1. End-stage renal disease, on hemodialysis on a Sunday, Sunday, Sunday schedule. The patient is scheduled for hemodialysis today. 2. Status post acute myocardial infarction status post cardiac catheterization right coronary stent placement with cardiac arrest and cardiogenic shock, currently hemodynamically much improved. 3. Cardiomyopathy, ejection fraction 30-35 percent. 4. Acute hypoxic respiratory failure currently status post extubation. 5. Severe hypotension secondary to cardiogenic shock, currently improved with IV fluids. PLAN: Hemodialysis today. DC IV fluids. Continue to wean off Levophed. Hemodialysis today with goal UF of about half to 1 L as tolerated. MMODL / IJN: [id number] /
[2020-06-18 14:01] LABS: Hepatitis BE Antigen NEG (Negative)
[2020-06-18 14:02] LABS: Hepatitis BE Antibody NEG (Negative)
[2020-06-18 15:58] LABS: Glucose,Whole Blood 143 mg/dL (75-99)
[2020-06-18 17:41] LABS: Glucose,Whole Blood 170 mg/dL (75-99)
[2020-06-18] MEDS: NOREPINEPHRINE 32 MG in SODIUM CHLORIDE 0.9% 218 ML IV SCH (19:17)
[2020-06-18 20:08] LABS: Glucose,Whole Blood 299 mg/dL (75-99)
[2020-06-18 20:08] LABS: Glucose,Whole Blood 282 mg/dL (75-99)
[2020-06-18 23:38] LABS: Glucose,Whole Blood 223 mg/dL (75-99)
[2020-06-19 01:59] LABS: Glucose,Whole Blood 173 mg/dL (75-99)
[2020-06-19] MEDS: INSULIN REGULAR 100 UNIT in SODIUM CHLORIDE 0.9% 100 ML IV SCH ×2 (04:13→22:10)
[2020-06-19 04:14] LABS: Glucose,Whole Blood 146 mg/dL (75-99)
[2020-06-19 04:42] LABS: Anisocytosis Slight; Basophils % (A) 0 %; Eosinophils % (A) 0 %; HGB 11.5 gm/dL (13.0-17.5); Hypochromasia Slight; Lymphocytes # (A) 0.4 k/uL (1.0-4.8); Lymphocytes % (A) 5 %; MCV 96.9 fL (80.0-100.0); Macrocytosis Slight; Mean Platelet Volume 8.3; Monocytes # (A) 0.3 k/uL (0-1.0); Monocytes % (A) 4 %; Neutrophils # (A) 6.4 k/uL (1.3-7.7); Neutrophils % (A) 90 %; Platelet Count 136 k/uL (150-450); RBC 3.72 m/uL (4.30-5.90); RDW 16.2 % (11.5-15.5); WBC 7.1 k/uL (3.8-10.6)
[2020-06-19 04:53] LABS: Albumin 3.1 g/dL (3.5-5.0); Calcium 8.4 mg/dL (8.4-10.2); Potassium 4.6 mmol/L (3.5-5.1); Total Bilirubin 1.1 mg/dL (0.2-1.3); Total Protein 5.8 g/dL (6.3-8.2)
[2020-06-19 06:01] LABS: Glucose,Whole Blood 137 mg/dL (75-99)
[2020-06-19] MEDS: LEVOTHYROXINE 50 MCG TAB PO SCH (06:30)
[2020-06-19] MEDS: HYDROmorphone 0.5 MG/0.5 ML SYRINGE IVP PRN ×3 (06:30→18:12)
[2020-06-19] MEDS: SEVELAMER 800 MG TAB PO SCH ×3 (06:30→18:02)
--- NOTE | 2020-06-19 07:07 | P.PN ---
Subjective Progress Note Date: 06/19/20 Principal diagnosis: Chest pain This is a pleasant 65-year-old gentleman was coronary artery disease and prior revascularization was admitted to the hospital with chest discomfort and ruled in for acute coronary event. He underwent a heart catheterization was subsequently stenting of the right coronary artery. The procedure was uneventful. Post procedure he went into cardiopulmonary arrest was PEA. Subsequently the patient was intubated and then he was extubated. The patient was seen today. He is overall doing better. He remains stable except for small dose of norepinephrine which is in process to be weaned. He has been maintaining normal sinus mechanism. Clinically he denies any symptoms of chest pain or chest discomfort or any shortness of breath or any dizziness or lightheadedness. The plan is to wean him from norepinephrine in process of transfer out of the ICU for possible discharge in the next 24-48 hours. Objective - Vital Signs Vital signs: Vital Signs Temp 98.2 F 06/19/20 04:00 Pulse 70 06/19/20 06:00 Resp 13 06/19/20 06:00 BP 90/48 06/18/20 15:47 Pulse Ox 97 06/19/20 06:00 Intake & Output 06/18/20 06/19/20 06/19/20 18:59 06:59 18:59 Intake Total 574.995 393.981 0.341 Output Total 1425 70 Balance -850.005 323.981 0.341 Weight 112.2 kg Intake: IV 312 176 Pressure Bags 72 66 Sodium Chloride 0.9% 1, 240 110 000 ml @ 75 mls/hr IV . [id number] [facility] Rx#:[id number] Intake, IV Titration 12.995 217.981 0.341 Amount Insulin Regular 100 unit 12.995 65.549 In Sodium Chloride 0.9% 100 ml @ Per Protocol IV .Q0M [facility] Rx#:[id number] Norepinephrine 32 mg In 152.432 0.341 Sodium Chloride 0.9% 218 ml @ 0.05 MCG/KG/MIN 2. 276 mls/hr IV .Q24H [facility] Rx#:[id number] Oral 250 Output: Urine 25 70 Hemodialysis 1400 Other: Voiding Method Indwelling Catheter Indwelling Catheter ABP, PAP, CO, CI - Last Documented Arterial Blood Pressure 128/52 - Constitutional General appearance: Present: no acute distress - Respiratory Respiratory: bilateral: CTA - Cardiovascular Rhythm: regular Heart sounds: normal: S1, S2 Abnormal Heart Sounds: Present: systolic murmur - Labs CBC & Chem 7: 06/19/20 04:19 06/19/20 04:19 Labs: Abnormal Lab Results - Last 24 Hours (Table) 06/18/20 06/18/20 06/18/20 Range/Units 10:00 12:14 15:56 RBC (4.30-5.90) m/uL Hgb (13.0-17.5) gm/dL Hct (39.0-53.0) % RDW (11.5-15.5) % Plt Count (150-450) k/uL Lymphocytes # (1.0-4.8) k/uL Sodium (137-145) mmol/L BUN (9-20) mg/dL Creatinine (0.66-1.25) mg/dL Glucose (74-99) mg/dL POC Glucose (mg/dL) 147 H 160 H 143 H (75-99) mg/dL AST (17-59) U/L ALT (4-49) U/L Total Protein (6.3-8.2) g/dL Albumin (3.5-5.0) g/dL 06/18/20 06/18/20 06/18/20 Range/Units 17:39 20:06 20:07 RBC (4.30-5.90) m/uL Hgb (13.0-17.5) gm/dL Hct (39.0-53.0) % RDW (11.5-15.5) % Plt Count (150-450) k/uL Lymphocytes # (1.0-4.8) k/uL Sodium (137-145) mmol/L BUN (9-20) mg/dL Creatinine (0.66-1.25) mg/dL Glucose (74-99) mg/dL POC Glucose (mg/dL) 170 H 299 H 282 H (75-99) mg/dL AST (17-59) U/L ALT (4-49) U/L Total Protein (6.3-8.2) g/dL Albumin (3.5-5.0) g/dL 06/18/20 06/19/20 06/19/20 Range/Units 23:37 01:57 04:12 RBC (4.30-5.90) m/uL Hgb (13.0-17.5) gm/dL Hct (39.0-53.0) % RDW (11.5-15.5) % Plt Count (150-450) k/uL Lymphocytes # (1.0-4.8) k/uL Sodium (137-145) mmol/L BUN (9-20) mg/dL Creatinine (0.66-1.25) mg/dL Glucose (74-99) mg/dL POC Glucose (mg/dL) 223 H 173 H 146 H (75-99) mg/dL AST (17-59) U/L ALT (4-49) U/L Total Protein (6.3-8.2) g/dL Albumin (3.5-5.0) g/dL 06/19/20 06/19/20 06/19/20 Range/Units 04:19 04:19 06:00 RBC 3.72 L (4.30-5.90) m/uL Hgb 11.5 L (13.0-17.5) gm/dL Hct 36.0 L (39.0-53.0) % RDW 16.2 H (11.5-15.5) % Plt Count 136 L (150-450) k/uL Lymphocytes # 0.4 L (1.0-4.8) k/uL Sodium 136 L (137-145) mmol/L BUN 46 H (9-20) mg/dL Creatinine 6.42 H (0.66-1.25) mg/dL Glucose 152 H (74-99) mg/dL POC Glucose (mg/dL) 137 H (75-99) mg/dL AST 377 H (17-59) U/L ALT 595 H (4-49) U/L Total Protein 5.8 L (6.3-8.2) g/dL Albumin 3.1 L (3.5-5.0) g/dL Assessment and Plan Assessment: Assessment #1 acute coronary syndrome #2 status post PCI of the RCA #3 cardiopulmonary arrest #4 end stage renal disease on dialysis #5 cardiomyopathy #6 multiple comorbid conditions Plan #1 right wean the patient from the vasopressors #2 try to get the patient up and around #3 continue dual antiplatelet therapy #4 follow-up with the patient
[2020-06-19 08:04] LABS: Glucose,Whole Blood 164 mg/dL (75-99)
[2020-06-19] MEDS: HYDROCORTISONE SUCCINATE 100 MG/2 ML VIAL IV SCH ×2 (08:35→15:56)
[2020-06-19] MEDS: ASPIRIN 81 MG PO SCH (08:35)
[2020-06-19] MEDS: CLOPIDOGREL 75 MG TAB PO SCH (08:35)
[2020-06-19] MEDS: FOLIC ACID-VIT B COMPLEX-VIT C 1 CAP PO SCH (08:36)
[2020-06-19] MEDS: RANOLAZINE 500 MG TAB.ER.12H PO SCH (08:36)
--- NOTE | 2020-06-19 08:47 | XR ---
EXAMINATION TYPE: XR chest 1V DATE OF EXAM: 06/19/2020 COMPARISON: Prior chest x-ray 06/18/2020 HISTORY: Shortness of breath TECHNIQUE: Single frontal view of the chest is obtained. FINDINGS: Pleural parenchymal changes are similar to prior exam. Heart remains enlarged. There is no evident pneumothorax. IMPRESSION: Correlate for congestive heart failure, pneumonia with possible effusion.
[2020-06-19] MEDS: IPRATROPIUM-ALBUTEROL 3 ML NEB INHALATION SCH ×4 (09:18→20:41)
[2020-06-19 10:04] LABS: Glucose,Whole Blood 240 mg/dL (75-99)
--- NOTE | 2020-06-19 10:27 | P.PN ---
Subjective Progress Note Date: 06/19/20 HISTORY OF PRESENT ILLNESS 65-year-old male one of my office patient who seen cardiology regular basis know n to have history of coronary disease post bypass surgery with MCDERMOTT to the LAD and Swengel the graft on the left circumflex artery. Patient also with dialysis the times a week and has been doing well till few days earlier when he developed to have significant chest pain with exertion associated with significant shortness of breath ended up coming to the emergency department tested and cardiac enzymes were negative patient ended up being discharged home to see cardiology as an outpatient. Hardly finish dialysis today with patient developed to have significant midsternal chest point and along with nausea without vomiting and had significant lightheadedness. Patient ended up coming [facility] department at [facility] where was seen his CK was significantly elevated originally and the total was 2.70. Patient will be kept on heparin drip seeing cardiology and plan for heart catheter based on current symptoms. 06/15: Patient remains in the ER waiting for a cardiac stepdown bed. He has been seen by cardiology and continued on aspirin and heparin, lisinopril decreased. He is scheduled for heart catheterization this afternoon. He is also scheduled for hemodialysis tomorrow. Echocardiogram report is pending. Patient has been afebrile, heart rate 77, blood pressure 98/57, pulse ox 95% on 2 L nasal cannula. Troponins have been 2.62, 2.7, 2.69. 06/16: Yesterday, patient underwent heart catheterization and stent of the RCA with Dr. Cordero. Patient had returned to his room and around 6:30 he had a cardiopulmonary arrest. He initially was PEA and was given 4 A of epi, bicarb and shocked. He was intubated and transferred to the intensive care unit. Patient remains intubated and on mechanical ventilation with tidal volume 500, FiO2 40, PEEP of 5. He is currently on Nimbex and norepinephrine. We will plan to start insulin drip this morning. Echocardiogram reveals EF of 30-35% with severe concentric left hypertrophy. Repeat lab work reveals WBC 7.4, hemoglobin 11.5, platelet count 120. Sodium 134, potassium 5.4, BUN 15 creatinine 7.54. AST 604, ALT 418. He is followed by pulmonary medicine. Nephrology is planning for repeat hemodialysis today and he is tentatively scheduled for heart catheterization again today. Chest x-ray this morning reveals suggestive of hea rt failure and mild interstitial pulmonary edema. Patchy retrocardiac opacities probably atelectasis. 06/17: Patient was successfully extubated yesterday. Repeat chest x-ray reveals correlate for interstitial edema, pneumonia, difficult to exclude small effusions. He is scheduled for hemodialysis tomorrow. He currently denies having any shortness of breath. He is complaining of significant chest wall pain from CPR. Will add an IV and oral pain medications for options. He remains on norepinephrine. He has been afebrile, heart rate 75, blood pressure 121/48, pulse ox 99% on room air. Repeat blood work reveals WBC 10.6, hemoglobin 1.8. Platelet count 144. Sodium 133, potassium 5.0, chloride 99, CO2 25, BUN 45 creatinine 6.79. Total bilirubin 1.4, AST 484, ALT 498, alkaline phosphatase 106. TSH 1.02. Cortisol level 18. Patient remains on insulin drip. 06/18: Patient remains in the intensive care unit on levo fed and insulin drip. He is scheduled for hemodialysis today. Patient denies any new complaints today. He does have chest pain from CPR. Mild shortness of breath. He has been afebrile, heart rate 70, blood pressure 111/48, pulse ox 96% on 4 L nasal cannula. Repeat blood work reveals WBC of 8.5, hemoglobin 11.7, platelet count 123. Sodium 133, potassium 4.93 creatinine 7.99. Blood sugars running between 126 and 140. Total bilirubin 1.5, AST 271, ALT 438. Troponin 19.9. 06/19: Patient remains in intensive care continues on levo fed and insulin drip. Patient had dialysis yesterday. He is currently sitting up in the chair with no new complaints. Patient has been afebrile, heart rate 78, blood pressure 102/57 on vasopressors, pulse oxing 97% on 4 L nasal cannula. The CBC 7.1, hemoglobin 11.5, potassium 4.6, creatinine 46, BUN 9. REVIEW OF SYSTEMS Constitutional: No fever, no chills, no night sweats. No weight change. No weakness, fatigue or lethargy. No daytime sleepiness. EENT: No headache. No blurred vision or double vision, no loss of vision. No loss of Hearing, no ringing in the ears, no dizziness. No nasal drainage or congestion. No epistaxis. No sore throat. Lungs: Mild shortness of breath, cough, no sputum production. No wheezing. Cardiovascular: Reports chest pain, no lower extremity edema. No palpitations. No paroxysmal nocturnal dyspnea. No orthopnea. No lightheadedness or dizziness. No syncopal episodes. Abdominal: No abdominal pain. No nausea, vomiting. No diarrhea. No constipation. No bloody or tarry stools.. No loss of appetite. Genitourinary: No dysuria, increased frequency, urgency. No urinary retention. Musculoskeletal: No myalgias. No muscle weakness, no gait dysfunction, no frequent falls. No back pain. No neck pain. Integumentary: No wounds, no lesions. No rash or pruritus. No unusual bruising. No change in hair or nails. Neurologic: No aphasia. No facial droop. No change in mentation. No head injury. No headache. No paralysis. No paresthesia. Psychiatric: No depression. No anxiety. No mood swings. Endocrine: No abnormal blood sugars. No weight change. No excessive sweating or thirst. No cold intolerance. PHYSICAL EXAMINATION General Appearance: Alert, cooperative, no distress, appears stated age. Neck HEENT: Supple, no lymphadenopathy Lungs: Crackles in the bilateral bases more so on the left Chest Wall: Chest wall normal expansion with deep inspiration and no deformity was found on exam. Heart: Regular rate and rhythm, S1, S2 normal, no murmur, rub or gallop. Back: Symmetric, no curvature, ROM normal, no CVA tenderness. Abdomen: Soft, non-tender, bowel sounds active all four quadrants, no masses, no organomegaly. Alberts with small amount of dark urine. Extremities: Extremities normal, atraumatic, no cyanosis or edema. Fistula graft in the left forearm. Pulses: 2+ and symmetric. Skin: Skin color, texture, tugor normal, no rashes or lesions. Neurologic: Patient is awake alert and oriented 3. No neuro deficits noted. ASSESSMENT AND PLAN 1 acute coronary syndrome, acute non-ST elevated myocardial infarction. Status post heart catheterization and stent of the RCA. Echocardiogram as above. Continue aspirin 81 mg daily, Lipitor 80 mg daily, Plavix 75 mg daily, continue Ranexa 1000 mg daily. 2 cardiopulmonary arrest with cardiogenic shock. Continue norepinephrine and attempt to wean off today. 3 acute hypoxic respiratory failure secondary to cardiopulmonary arrest requiring intubation, successfully extubated. Patient followed by pulmonary medicine. Currently on 4 L nasal cannula 4 chest pain secondary to CPR. Low-dose Dilaudid, [place] and Tylenol added as needed for pain. 5 End-stage renal disease on hemodialysis 3 times a week which will be continued for now. Patient is scheduled for hemodialysis today and if he goes for repeat heart catheterization this will be done following procedure. 4 Hypertension, currently hypotensive. 5 Type 2 diabetes uncontrolled with hyperglycemia. Patient on insulin drip. Patient may be transitioned to insulin pump later today. 6 advance cardiomyopathy. 7 Post aortic valve placement. 8 frequent PVCs continue Ranexa. 9 hyperlipidemia: Remain on atorvastatin. 10 hypothyroidism. Continue levothyroxine 50 g daily. 11 BPH: Watch for any urinary retention. Alberts catheter in place. 12 chronic edema: Continue diuretics. 13 GI prophylaxis: Patient will be on Pepcid. 14 DVT prophylaxis: Continue anticoagulation for now. 15 chronic thrombocytopenia. 16 elevated liver function tests secondary to shock liver. 17. Anemia of chronic kidney disease. CODE STATUS: Full code. DISCHARGE PLAN Home once stabilized Impression and plan of care have been directed as dictated by the signing physician. Kati Baker nurse practitioner acting as scribe for signing physician. Objective - Vital Signs Vital signs: Vital Signs Temp 97 F L 06/19/20 08:00 Pulse 80 06/19/20 09:35 Resp 21 06/19/20 09:00 BP 102/57 06/19/20 09:00 Pulse Ox 97 06/19/20 09:00 Intake & Output 06/18/20 06/19/20 06/19/20 18:59 06:59 18:59 Intake Total 574.995 393.981 157.128 Output Total 1425 70 40 Balance -850.005 323.981 117.128 Weight 112.2 kg Intake: IV 312 176 48 Pressure Bags 72 66 18 Sodium Chloride 0.9% 1, 240 110 30 000 ml @ 75 mls/hr IV . [id number] [facility] Rx#:[id number] Intake, IV Titration 12.995 217.981 9.128 Amount Insulin Regular 100 unit 12.995 65.549 8.787 In Sodium Chloride 0.9% 100 ml @ Per Protocol IV .Q0M [facility] Rx#:[id number] Norepinephrine 32 mg In 152.432 0.341 Sodium Chloride 0.9% 218 ml @ 0.05 MCG/KG/MIN 2. 276 mls/hr IV .Q24H [facility] Rx#:[id number] Oral 250 100 Output: Urine 25 70 40 Hemodialysis 1400 Other: Voiding Method Indwelling Catheter Indwelling Catheter Indwelling Catheter ABP, PAP, CO, CI - Last Documented Arterial Blood Pressure 104/46 - Labs CBC & Chem 7: 06/19/20 04:19 06/19/20 04:19 Labs: Abnormal Lab Results - Last 24 Hours (Table) 06/18/20 06/18/20 06/18/20 Range/Units 12:14 15:56 17:39 RBC (4.30-5.90) m/uL Hgb (13.0-17.5) gm/dL Hct (39.0-53.0) % RDW (11.5-15.5) % Plt Count (150-450) k/uL Lymphocytes # (1.0-4.8) k/uL Sodium (137-145) mmol/L BUN (9-20) mg/dL Creatinine (0.66-1.25) mg/dL Glucose (74-99) mg/dL POC Glucose (mg/dL) 160 H 143 H 170 H (75-99) mg/dL AST (17-59) U/L ALT (4-49) U/L Total Protein (6.3-8.2) g/dL Albumin (3.5-5.0) g/dL 06/18/20 06/18/20 06/18/20 Range/Units 20:06 20:07 23:37 RBC (4.30-5.90) m/uL Hgb (13.0-17.5) gm/dL Hct (39.0-53.0) % RDW (11.5-15.5) % Plt Count (150-450) k/uL Lymphocytes # (1.0-4.8) k/uL Sodium (137-145) mmol/L BUN (9-20) mg/dL Creatinine (0.66-1.25) mg/dL Glucose (74-99) mg/dL POC Glucose (mg/dL) 299 H 282 H 223 H (75-99) mg/dL AST (17-59) U/L ALT (4-49) U/L Total Protein (6.3-8.2) g/dL Albumin (3.5-5.0) g/dL 06/19/20 06/19/20 06/19/20 Range/Units 01:57 04:12 04:19 RBC 3.72 L (4.30-5.90) m/uL Hgb 11.5 L (13.0-17.5) gm/dL Hct 36.0 L (39.0-53.0) % RDW 16.2 H (11.5-15.5) % Plt Count 136 L (150-450) k/uL Lymphocytes # 0.4 L (1.0-4.8) k/uL Sodium (137-145) mmol/L BUN (9-20) mg/dL Creatinine (0.66-1.25) mg/dL Glucose (74-99) mg/dL POC Glucose (mg/dL) 173 H 146 H (75-99) mg/dL AST (17-59) U/L ALT (4-49) U/L Total Protein (6.3-8.2) g/dL Albumin (3.5-5.0) g/dL 06/19/20 06/19/20 06/19/20 Range/Units 04:19 06:00 08:03 RBC (4.30-5.90) m/uL Hgb (13.0-17.5) gm/dL Hct (39.0-53.0) % RDW (11.5-15.5) % Plt Count (150-450) k/uL Lymphocytes # (1.0-4.8) k/uL Sodium 136 L (137-145) mmol/L BUN 46 H (9-20) mg/dL Creatinine 6.42 H (0.66-1.25) mg/dL Glucose 152 H (74-99) mg/dL POC Glucose (mg/dL) 137 H 164 H (75-99) mg/dL AST 377 H (17-59) U/L ALT 595 H (4-49) U/L Total Protein 5.8 L (6.3-8.2) g/dL Albumin 3.1 L (3.5-5.0) g/dL 06/19/20 Range/Units 10:03 RBC (4.30-5.90) m/uL Hgb (13.0-17.5) gm/dL Hct (39.0-53.0) % RDW (11.5-15.5) % Plt Count (150-450) k/uL Lymphocytes # (1.0-4.8) k/uL Sodium (137-145) mmol/L BUN (9-20) mg/dL Creatinine (0.66-1.25) mg/dL Glucose (74-99) mg/dL POC Glucose (mg/dL) 240 H (75-99) mg/dL AST (17-59) U/L ALT (4-49) U/L Total Protein (6.3-8.2) g/dL Albumin (3.5-5.0) g/dL
[2020-06-19 11:46] LABS: Glucose,Whole Blood 230 mg/dL (75-99)
--- NOTE | 2020-06-19 12:15 | P.PN ---
Subjective Progress Note Date: 06/19/20 The patient is seen today in follow-up in the intensive care unit. He was admitted to the hospital after developing chest pain following dialysis. He presented to the emergency room and found to have an acute coronary syndrome with a non-ST segment elevation myocardial infarction. He had gone to the [facility] and had a stent placed to the right coronary artery. Soon after that he had a cardiac arrest and had approximately 12 minutes of resuscitation. He did have return of spontaneous circulation. He is seen today in follow-up. He remains intubated on mechanical ventilator. Current settings assist-control of 18, tidal volume 500, FiO2 40% and a PEEP of 5. Arterial blood gases drawn this mor mae on 50% FiO2 revealed a pCO2 of 119, CO2 42, pH 7.43. He remains sedated on propofol at 25 mcg/kg/m. He's on Nimbex at 2 mcg/kg/m. He is requiring norepinephrine at 39 mcg/m. He is on insulin drip at 8 units per hour. 0.9 normal saline at 75 ML's per hour. His echocardiogram revealed ejection fraction of 30-35%. CVP running about 12. Chest x-ray reveals evidence of congestive heart failure with mild interstitial pulmonary edema. Patchy retrocardiac opacity suspected to be atelectasis. White count 7.4. Hemoglobin 11.5. Platelet count 120,000. Sodium 134. Potassium 5.4. BUN 50. Creatinine 7.54. AST 604. ALT 418. Remains on DuoNeb inhalations. The patient is seen today in 06/17/2020 and follow-up in the intensive care unit. He was successfully extubated yesterday. Currently he is awake and alert and doing well. He is on oxygen at 3 L/m per nasal cannula. He has 0.9 normal saline at 75 ML's per hour. He is still requiring norepinephrine at 25 mcg/m. He is on a insulin drip at 1.5 units per hour. This is day #2 following stent to the RCA. He was an Non-STEMI. White count 10.6. Hemoglobin 11.8. Sodium 133. Potassium 5.0. Creatinine 6.79. AST 11/08/1983. ALT 498. Troponin 28.2. Chest x-ray reveals interstitial edema with small effusions. The patient is seen today 06/18/2020 in follow-up in the intensive care unit. He is currently awake and alert in no acute distress. Last evening he developed increasing shortness of breath and low O2 saturations. He was placed on BiPAP 12/5 and 50% FiO2. He was given Lasix 40 mg IV push times one. Chest x-ray reveals evidence of fluid volume overload. He did receive hemodialysis yesterday and the plans are for repeat today. He is still requiring norepinephrine 18 mcg/m. He is on insulin drip at 0.5 units per hour. 0.9, Sinemet 20 ML's per hour. White count 8.5. Hemoglobin 11.7. Platelet count 123,000. 2133. Potassium 4.9. BUN 57. Creatinine 7.99. AST 271. ALT 438. Troponin 19.9. Serum cortisol level 18. The patient is seen today 06/19/2020 in follow-up in the intensive care unit. He is currently sitting up in a chair at the bedside. Awake and alert in no acute distress. Doing quite a bit better today compared to yesterday. He is on 4 L/m per nasal cannula to maintain O2 saturation in the 90s. Chest x-ray shows evidence of fluid volume overload, small effusions. Pneumonia not excluded. Currently afebrile. Still requiring norepinephrine at 2.24 mcg/m. 0.9 normal saline at 10 MLS per hour. He is receiving hemodialysis on Sunday. Denies any chest pain currently. No worsening shortness of breath, cough or congestion. White count 7.1. Hemoglobin 11.5. Platelets 136. Sodium 136. Potassium 4.6. Creatinine 6.42. Objective - Vital Signs Vital signs: Vital Signs Temp 97 F L 06/19/20 08:00 Pulse 74 06/19/20 11:00 Resp 16 06/19/20 11:00 BP 105/61 06/19/20 11:00 Pulse Ox 97 06/19/20 11:00 Intake & Output 06/18/20 06/19/20 06/19/20 18:59 06:59 18:59 Intake Total 574.995 393.981 169.128 Output Total 1425 70 50 Balance -850.005 323.981 119.128 Weight 112.2 kg Intake: IV 312 176 60 Pressure Bags 72 66 30 Sodium Chloride 0.9% 1, 240 110 30 000 ml @ 75 mls/hr IV . [id number] [facility] Rx#:[id number] Intake, IV Titration 12.995 217.981 9.128 Amount Insulin Regular 100 unit 12.995 65.549 8.787 In Sodium Chloride 0.9% 100 ml @ Per Protocol IV .Q0M [facility] Rx#:[id number] Norepinephrine 32 mg In 152.432 0.341 Sodium Chloride 0.9% 218 ml @ 0.05 MCG/KG/MIN 2. 276 mls/hr IV .Q24H [facility] Rx#:[id number] Oral 250 100 Output: Urine 25 70 50 Hemodialysis 1400 Other: Voiding Method Indwelling Catheter Indwelling Catheter Indwelling Catheter ABP, PAP, CO, CI - Last Documented Arterial Blood Pressure 107/42 - Exam GENERAL EXAM: Awake, alert, very pleasant 65-year-old gentleman, on 4 L nasal cannula,, comfortable in no apparent distress. HEAD: Normocephalic. EYES: Sluggish reaction of pupils, equal size. NOSE: Clear with pink turbinates. THROAT: Oral endotracheal and gastric tube secured in place. No erythema or exudates. NECK: No masses, no JVD. Left internal jugular triple-lumen catheter in place. CHEST: No chest wall deformity. LUNGS: Equal air entry with crackles in the bilateral posterior bases, right greater than left. CVS: S1 and S2 normal with no audible murmur, regular rhythm. ABDOMEN: No hepatosplenomegaly, normal bowel sounds, no guarding or rigidity. SPINE: No scoliosis or deformity SKIN: No rashes CENTRAL NERVOUS SYSTEM: No focal deficits. Tone is normal in all 4 extremities. EXTREMITIES: There is no peripheral edema. No clubbing, no cyanosis. Peripheral pulses are intact. - Labs CBC & Chem 7: 06/19/20 04:19 06/19/20 04:19 Labs: Abnormal Lab Results - Last 24 Hours (Table) 06/18/20 06/18/20 06/18/20 Range/Units 12:14 15:56 17:39 RBC (4.30-5.90) m/uL Hgb (13.0-17.5) gm/dL Hct (39.0-53.0) % RDW (11.5-15.5) % Plt Count (150-450) k/uL Lymphocytes # (1.0-4.8) k/uL Sodium (137-145) mmol/L BUN (9-20) mg/dL Creatinine (0.66-1.25) mg/dL Glucose (74-99) mg/dL POC Glucose (mg/dL) 160 H 143 H 170 H (75-99) mg/dL AST (17-59) U/L ALT (4-49) U/L Total Protein (6.3-8.2) g/dL Albumin (3.5-5.0) g/dL 06/18/20 06/18/20 06/18/20 Range/Units 20:06 20:07 23:37 RBC (4.30-5.90) m/uL Hgb (13.0-17.5) gm/dL Hct (39.0-53.0) % RDW (11.5-15.5) % Plt Count (150-450) k/uL Lymphocytes # (1.0-4.8) k/uL Sodium (137-145) mmol/L BUN (9-20) mg/dL Creatinine (0.66-1.25) mg/dL Glucose (74-99) mg/dL POC Glucose (mg/dL) 299 H 282 H 223 H (75-99) mg/dL AST (17-59) U/L ALT (4-49) U/L Total Protein (6.3-8.2) g/dL Albumin (3.5-5.0) g/dL 06/19/20 06/19/20 06/19/20 Range/Units 01:57 04:12 04:19 RBC 3.72 L (4.30-5.90) m/uL Hgb 11.5 L (13.0-17.5) gm/dL Hct 36.0 L (39.0-53.0) % RDW 16.2 H (11.5-15.5) % Plt Count 136 L (150-450) k/uL Lymphocytes # 0.4 L (1.0-4.8) k/uL Sodium (137-145) mmol/L BUN (9-20) mg/dL Creatinine (0.66-1.25) mg/dL Glucose (74-99) mg/dL POC Glucose (mg/dL) 173 H 146 H (75-99) mg/dL AST (17-59) U/L ALT (4-49) U/L Total Protein (6.3-8.2) g/dL Albumin (3.5-5.0) g/dL 06/19/20 06/19/20 06/19/20 Range/Units 04:19 06:00 08:03 RBC (4.30-5.90) m/uL Hgb (13.0-17.5) gm/dL Hct (39.0-53.0) % RDW (11.5-15.5) % Plt Count (150-450) k/uL Lymphocytes # (1.0-4.8) k/uL Sodium 136 L (137-145) mmol/L BUN 46 H (9-20) mg/dL Creatinine 6.42 H (0.66-1.25) mg/dL Glucose 152 H (74-99) mg/dL POC Glucose (mg/dL) 137 H 164 H (75-99) mg/dL AST 377 H (17-59) U/L ALT 595 H (4-49) U/L Total Protein 5.8 L (6.3-8.2) g/dL Albumin 3.1 L (3.5-5.0) g/dL 06/19/20 06/19/20 Range/Units 10:03 11:45 RBC (4.30-5.90) m/uL Hgb (13.0-17.5) gm/dL Hct (39.0-53.0) % RDW (11.5-15.5) % Plt Count (150-450) k/uL Lymphocytes # (1.0-4.8) k/uL Sodium (137-145) mmol/L BUN (9-20) mg/dL Creatinine (0.66-1.25) mg/dL Glucose (74-99) mg/dL POC Glucose (mg/dL) 240 H 230 H (75-99) mg/dL AST (17-59) U/L ALT (4-49) U/L Total Protein (6.3-8.2) g/dL Albumin (3.5-5.0) g/dL Assessment and Plan Assessment: 1 Non-ST segment elevation myocardial infarction, status post placement to the RCA, status post cardiopulmonary arrest. 2 Acute hypoxemic respiratory failure secondary to above requiring intubation mechanical ventilatory support 3 Profound hypotension, shock, requiring pressor support 4 Severe ischemic cardiomyopathy with ejection fraction 30-35% 5 History of previous aortic valve replacement and coronary artery bypass grafting 2 6 Diabetes mellitus 7 Diabetic neuropathy 8 End-stage renal disease receiving dialysis Sunday 9 Hyperlipidemia 10 History of hypertension 11 Chronic anemia 12 Elevated liver enzymes in secondary to cardiogenic shock Plan: The patient was seen and evaluated by Dr. Umanzor Chest x-ray, labs reviewed Continue the current treatment plan Titrate down the FiO2 as tolerated Titrate down the norepinephrine as tolerated We will continue to follow and make further recommendations based on his clinical status I, the cosigning physician, performed a history & physical examination of the patient. Lungs sounds with bilateral crackles in the posterior uses, right greater than left. Maintaining good O2 saturations in the 90s on 4 L/m per nasal cannula. I discussed the assessment and plan of care with my nurse practitioner, Yue Espino. I attest to the above note as dictated by her.
--- NOTE | 2020-06-19 12:28 | P.PN ---
Subjective Progress Note Date: 06/19/20 Principal diagnosis: This is a 65-year-old male with ESRD on dialysis Sunday with her right arm fistula. He came in with chest pain acute IA and had a stent and then subsequently had a cardiac arrest. He is done well currently on levo fed, awake alert sitting in a chair mild cough and mildly short of breath. He is in normal sinus rhythm. Appetite is fair. No nausea vomiting diarrhea no abdominal pain Is known with coronary artery disease, history of CABG, cardiac valve replacement, diabetes. Objective - Vital Signs Vital signs: Vital Signs Temp 97 F L 06/19/20 08:00 Pulse 74 06/19/20 11:00 Resp 16 06/19/20 11:00 BP 105/61 06/19/20 11:00 Pulse Ox 97 06/19/20 11:00 Intake & Output 06/18/20 06/19/20 06/19/20 18:59 06:59 18:59 Intake Total 574.995 393.981 169.128 Output Total 1425 70 50 Balance -850.005 323.981 119.128 Weight 112.2 kg Intake: IV 312 176 60 Pressure Bags 72 66 30 Sodium Chloride 0.9% 1, 240 110 30 000 ml @ 75 mls/hr IV . [id number] [facility] Rx#:[id number] Intake, IV Titration 12.995 217.981 9.128 Amount Insulin Regular 100 unit 12.995 65.549 8.787 In Sodium Chloride 0.9% 100 ml @ Per Protocol IV .Q0M [facility] Rx#:[id number] Norepinephrine 32 mg In 152.432 0.341 Sodium Chloride 0.9% 218 ml @ 0.05 MCG/KG/MIN 2. 276 mls/hr IV .Q24H [facility] Rx#:[id number] Oral 250 100 Output: Urine 25 70 50 Hemodialysis 1400 Other: Voiding Method Indwelling Catheter Indwelling Catheter Indwelling Catheter ABP, PAP, CO, CI - Last Documented Arterial Blood Pressure 107/42 On examination is awake alert oriented comfortable He has mild cough. HEENT exam no JVP neck is supple no facial asymmetry Lungs are clear to auscultation fair air entry bilaterally Heart sounds unremarkable for any murmur rub gallop Abdomen soft nontender extremity exam was mild edema Neurologically awake alert oriented - Labs CBC & Chem 7: 06/19/20 04:19 06/19/20 04:19 Labs: Abnormal Lab Results - Last 24 Hours (Table) 06/18/20 06/18/20 06/18/20 Range/Units 15:56 17:39 20:06 RBC (4.30-5.90) m/uL Hgb (13.0-17.5) gm/dL Hct (39.0-53.0) % RDW (11.5-15.5) % Plt Count (150-450) k/uL Lymphocytes # (1.0-4.8) k/uL Sodium (137-145) mmol/L BUN (9-20) mg/dL Creatinine (0.66-1.25) mg/dL Glucose (74-99) mg/dL POC Glucose (mg/dL) 143 H 170 H 299 H (75-99) mg/dL AST (17-59) U/L ALT (4-49) U/L Total Protein (6.3-8.2) g/dL Albumin (3.5-5.0) g/dL 06/18/20 06/18/20 06/19/20 Range/Units 20:07 23:37 01:57 RBC (4.30-5.90) m/uL Hgb (13.0-17.5) gm/dL Hct (39.0-53.0) % RDW (11.5-15.5) % Plt Count (150-450) k/uL Lymphocytes # (1.0-4.8) k/uL Sodium (137-145) mmol/L BUN (9-20) mg/dL Creatinine (0.66-1.25) mg/dL Glucose (74-99) mg/dL POC Glucose (mg/dL) 282 H 223 H 173 H (75-99) mg/dL AST (17-59) U/L ALT (4-49) U/L Total Protein (6.3-8.2) g/dL Albumin (3.5-5.0) g/dL 06/19/20 06/19/20 06/19/20 Range/Units 04:12 04:19 04:19 RBC 3.72 L (4.30-5.90) m/uL Hgb 11.5 L (13.0-17.5) gm/dL Hct 36.0 L (39.0-53.0) % RDW 16.2 H (11.5-15.5) % Plt Count 136 L (150-450) k/uL Lymphocytes # 0.4 L (1.0-4.8) k/uL Sodium 136 L (137-145) mmol/L BUN 46 H (9-20) mg/dL Creatinine 6.42 H (0.66-1.25) mg/dL Glucose 152 H (74-99) mg/dL POC Glucose (mg/dL) 146 H (75-99) mg/dL AST 377 H (17-59) U/L ALT 595 H (4-49) U/L Total Protein 5.8 L (6.3-8.2) g/dL Albumin 3.1 L (3.5-5.0) g/dL 06/19/20 06/19/20 06/19/20 Range/Units 06:00 08:03 10:03 RBC (4.30-5.90) m/uL Hgb (13.0-17.5) gm/dL Hct (39.0-53.0) % RDW (11.5-15.5) % Plt Count (150-450) k/uL Lymphocytes # (1.0-4.8) k/uL Sodium (137-145) mmol/L BUN (9-20) mg/dL Creatinine (0.66-1.25) mg/dL Glucose (74-99) mg/dL POC Glucose (mg/dL) 137 H 164 H 240 H (75-99) mg/dL AST (17-59) U/L ALT (4-49) U/L Total Protein (6.3-8.2) g/dL Albumin (3.5-5.0) g/dL 06/19/20 Range/Units 11:45 RBC (4.30-5.90) m/uL Hgb (13.0-17.5) gm/dL Hct (39.0-53.0) % RDW (11.5-15.5) % Plt Count (150-450) k/uL Lymphocytes # (1.0-4.8) k/uL Sodium (137-145) mmol/L BUN (9-20) mg/dL Creatinine (0.66-1.25) mg/dL Glucose (74-99) mg/dL POC Glucose (mg/dL) 230 H (75-99) mg/dL AST (17-59) U/L ALT (4-49) U/L Total Protein (6.3-8.2) g/dL Albumin (3.5-5.0) g/dL Assessment and Plan Assessment: Impression 1. ESRD on dialysis Sunday., Downs his right arm 2. Admitted with chest pain acute IA stented to cardiac arrest and now stable on small doses of levo fed 3. History of diabetes mellitus, coronary artery bypass graft. 4. Congestive heart failure. Recommendation 1. As she is clinically improving over watch him and if necessary dialyze him tomorrow otherwise neck scheduled dialysis Sunday 2. Try to taper off Levophed if possible
[2020-06-19] MEDS ORDERED: SODIUM CHLORIDE 0.9% 1,000 ML IV SCH (12:30)
[2020-06-19 14:03] LABS: Glucose,Whole Blood 219 mg/dL (75-99)
[2020-06-19 16:01] LABS: Glucose,Whole Blood 203 mg/dL (75-99)
[2020-06-19 18:08] LABS: Glucose,Whole Blood 307 mg/dL (75-99)
[2020-06-19 19:46] LABS: Glucose,Whole Blood 279 mg/dL (75-99)
[2020-06-19 22:08] LABS: Glucose,Whole Blood 241 mg/dL (75-99)
[2020-06-20 00:08] LABS: Glucose,Whole Blood 169 mg/dL (75-99)
[2020-06-20] MEDS: HYDROCORTISONE SUCCINATE 100 MG/2 ML VIAL IV SCH ×3 (00:10→16:09)
[2020-06-20] MEDS: HYDROmorphone 0.5 MG/0.5 ML SYRINGE IVP PRN ×4 (00:14→17:46)
[2020-06-20 02:09] LABS: Glucose,Whole Blood 197 mg/dL (75-99)
[2020-06-20 04:35] LABS: Glucose,Whole Blood 233 mg/dL (75-99)
[2020-06-20 05:00] LABS: Basophils % (A) 0 %; Eosinophils % (A) 0 %; HCT 33.2 % (39.0-53.0); HGB 10.7 gm/dL (13.0-17.5); Hypochromasia Slight; Lymphocytes # (A) 0.3 k/uL (1.0-4.8); Lymphocytes % (A) 4 %; MCH 31.7 pg (25.0-35.0); MCHC 32.1 g/dL (31.0-37.0); MCV 98.7 fL (80.0-100.0); Macrocytosis Slight; Mean Platelet Volume 8.5; Monocytes # (A) 0.2 k/uL (0-1.0); Monocytes % (A) 3 %; Neutrophils # (A) 6.6 k/uL (1.3-7.7); Neutrophils % (A) 93 %; Platelet Count 126 k/uL (150-450); RBC 3.36 m/uL (4.30-5.90); RDW 15.6 % (11.5-15.5); WBC 7.1 k/uL (3.8-10.6)
[2020-06-20 05:23] LABS: Albumin 2.8 g/dL (3.5-5.0); Calcium 8.1 mg/dL (8.4-10.2); Total Bilirubin 0.8 mg/dL (0.2-1.3); Total Protein 5.3 g/dL (6.3-8.2)
[2020-06-20 06:04] LABS: Glucose,Whole Blood 202 mg/dL (75-99)
[2020-06-20] MEDS: LEVOTHYROXINE 50 MCG TAB PO SCH (06:48)
[2020-06-20] MEDS: SEVELAMER 800 MG TAB PO SCH ×3 (06:48→17:13)
--- NOTE | 2020-06-20 07:21 | P.PN ---
Subjective Progress Note Date: 06/20/20 Principal diagnosis: Chest pain This is a pleasant 65-year-old gentleman was coronary artery disease and prior revascularization was admitted to the hospital with chest discomfort and ruled in for acute coronary event. He underwent a heart catheterization was subsequently stenting of the right coronary artery. The procedure was uneventful. Post procedure he went into cardiopulmonary arrest was PEA. Subsequently the patient was intubated and then he was extubated. After that the patient remains on a small dose of norepinephrine. The patient was seen today. Clinically he is doing good. He denies any symptoms of chest pain or chest discomfort. Hemodynamically and this is the first day since he was in the ICU is of norepinephrine. We will monitor the blood pressure very closely. He was on statin which was stopped because of abnormal liver function tests. He continues to be on dual antiplatelet therapy. If the patient remains hemodynamically stable for the next 12-24 hours he possibly can be discharged out of the ICU. Objective - Vital Signs Vital signs: Vital Signs Temp 98.6 F 06/20/20 04:00 Pulse 64 06/20/20 07:00 Resp 28 H 06/20/20 07:00 BP 149/88 06/20/20 07:00 Pulse Ox 97 06/20/20 07:00 Intake & Output 06/19/20 06/20/20 06/20/20 18:59 06:59 18:59 Intake Total 869.882 318.925 Output Total 70 60 Balance 799.882 258.925 Weight 112.6 kg Intake: IV 212 199 0.9NS 110 126 Pressure Bags 72 73 Sodium Chloride 0.9% 1, 30 000 ml @ 75 mls/hr IV . [id number] [facility] Rx#:[id number] Intake, IV Titration 57.882 113.925 Amount Insulin Regular 100 unit 53.446 75.968 In Sodium Chloride 0.9% 100 ml @ Per Protocol IV .Q0M [facility] Rx#:[id number] Norepinephrine 32 mg In 4.436 37.957 Sodium Chloride 0.9% 218 ml @ 0.05 MCG/KG/MIN 2. 276 mls/hr IV .Q24H [facility] Rx#:[id number] Oral 600 Lipid 6 Pressure Bags 6 Output: Urine 70 60 Other: Voiding Method Indwelling Catheter Indwelling Catheter # Voids 1 # Bowel Movements 1 ABP, PAP, CO, CI - Last Documented Arterial Blood Pressure 141/58 - Constitutional General appearance: Present: no acute distress - Respiratory Respiratory: bilateral: CTA - Cardiovascular Rhythm: regular Heart sounds: normal: S1, S2 Abnormal Heart Sounds: Present: systolic murmur - Labs CBC & Chem 7: 06/20/20 04:35 06/20/20 04:35 Labs: Abnormal Lab Results - Last 24 Hours (Table) 06/19/20 06/19/20 06/19/20 Range/Units 08:03 10:03 11:45 RBC (4.30-5.90) m/uL Hgb (13.0-17.5) gm/dL Hct (39.0-53.0) % RDW (11.5-15.5) % Plt Count (150-450) k/uL Lymphocytes # (1.0-4.8) k/uL Sodium (137-145) mmol/L BUN (9-20) mg/dL Creatinine (0.66-1.25) mg/dL Glucose (74-99) mg/dL POC Glucose (mg/dL) 164 H 240 H 230 H (75-99) mg/dL Calcium (8.4-10.2) mg/dL AST (17-59) U/L ALT (4-49) U/L Total Protein (6.3-8.2) g/dL Albumin (3.5-5.0) g/dL 06/19/20 06/19/20 06/19/20 Range/Units 14:01 16:00 18:06 RBC (4.30-5.90) m/uL Hgb (13.0-17.5) gm/dL Hct (39.0-53.0) % RDW (11.5-15.5) % Plt Count (150-450) k/uL Lymphocytes # (1.0-4.8) k/uL Sodium (137-145) mmol/L BUN (9-20) mg/dL Creatinine (0.66-1.25) mg/dL Glucose (74-99) mg/dL POC Glucose (mg/dL) 219 H 203 H 307 H (75-99) mg/dL Calcium (8.4-10.2) mg/dL AST (17-59) U/L ALT (4-49) U/L Total Protein (6.3-8.2) g/dL Albumin (3.5-5.0) g/dL 06/19/20 06/19/20 06/20/20 Range/Units 19:43 22:06 00:07 RBC (4.30-5.90) m/uL Hgb (13.0-17.5) gm/dL Hct (39.0-53.0) % RDW (11.5-15.5) % Plt Count (150-450) k/uL Lymphocytes # (1.0-4.8) k/uL Sodium (137-145) mmol/L BUN (9-20) mg/dL Creatinine (0.66-1.25) mg/dL Glucose (74-99) mg/dL POC Glucose (mg/dL) 279 H 241 H 169 H (75-99) mg/dL Calcium (8.4-10.2) mg/dL AST (17-59) U/L ALT (4-49) U/L Total Protein (6.3-8.2) g/dL Albumin (3.5-5.0) g/dL 06/20/20 06/20/20 06/20/20 Range/Units 02:07 04:33 04:35 RBC 3.36 L (4.30-5.90) m/uL Hgb 10.7 L (13.0-17.5) gm/dL Hct 33.2 L (39.0-53.0) % RDW 15.6 H (11.5-15.5) % Plt Count 126 L (150-450) k/uL Lymphocytes # 0.3 L (1.0-4.8) k/uL Sodium (137-145) mmol/L BUN (9-20) mg/dL Creatinine (0.66-1.25) mg/dL Glucose (74-99) mg/dL POC Glucose (mg/dL) 197 H 233 H (75-99) mg/dL Calcium (8.4-10.2) mg/dL AST (17-59) U/L ALT (4-49) U/L Total Protein (6.3-8.2) g/dL Albumin (3.5-5.0) g/dL 11/15/20 11/15/20 Range/Units 04:35 06:03 RBC (4.30-5.90) m/uL Hgb (13.0-17.5) gm/dL Hct (39.0-53.0) % RDW (11.5-15.5) % Plt Count (150-450) k/uL Lymphocytes # (1.0-4.8) k/uL Sodium 133 L (137-145) mmol/L BUN 60 H (9-20) mg/dL Creatinine 7.96 H* (0.66-1.25) mg/dL Glucose 224 H (74-99) mg/dL POC Glucose (mg/dL) 202 H (75-99) mg/dL Calcium 8.1 L (8.4-10.2) mg/dL AST 123 H (17-59) U/L ALT 376 H (4-49) U/L Total Protein 5.3 L (6.3-8.2) g/dL Albumin 2.8 L (3.5-5.0) g/dL Assessment and Plan Assessment: Assessment #1 acute coronary syndrome #2 status post PCI of the RCA #3 cardiopulmonary arrest #4 end stage renal disease on dialysis #5 impaired LV function Plan #1 continue monitor the blood pressure very closely #2 continue dual antiplatelet therapy #3 severe the patient out of the ICU in the next 12-24 hours #4 obtain a limited echocardiogram to assess for improvement in the ejection fraction #5 follow-up with the patient
--- NOTE | 2020-06-20 07:24 | XR ---
EXAMINATION TYPE: XR chest 1V DATE OF EXAM: 06/20/2020 COMPARISON: 06/19/2020 HISTORY: SOB, Follow Up FINDINGS: Indwelling tubes and catheters are unchanged. Persistent cardiomegaly with pulmonary venous congestion and scattered infiltrates. Overall no signif icant change identified in features of congestive failure. Pleural effusion unchanged. IMPRESSION: 1. Stable portable chest. Clinical correlation and follow up until resolution is recommended.
[2020-06-20] MEDS: IPRATROPIUM-ALBUTEROL 3 ML NEB INHALATION SCH ×4 (07:43→20:15)
[2020-06-20 08:09] LABS: Glucose,Whole Blood 194 mg/dL (75-99)
[2020-06-20] MEDS: CLOPIDOGREL 75 MG TAB PO SCH (08:38)
[2020-06-20] MEDS: RANOLAZINE 500 MG TAB.ER.12H PO SCH (08:39)
[2020-06-20] MEDS: ASPIRIN 81 MG PO SCH (08:39)
[2020-06-20] MEDS: FOLIC ACID-VIT B COMPLEX-VIT C 1 CAP PO SCH (08:39)
[2020-06-20 10:14] LABS: Glucose,Whole Blood 165 mg/dL (75-99)
--- NOTE | 2020-06-20 10:15 | P.PN ---
Subjective Progress Note Date: 06/20/20 Principal diagnosis: This is a 65-year-old male with ESRD on dialysis Sunday with her right arm fistula. He came in with chest pain acute LA and had a stent and then subsequently had a cardiac arrest. He is done well, he was on small doses of levo fed because pressure sometimes goes down to the 80s to 90s but more recently has been taken off of levo fed and blood pressure is in the 100 systolic to 140s systolic range He denies any shortness of breath has mild cough. He is in normal sinus rhythm. Appetite is fair. No nausea vomiting diarrhea no abdominal pain Is known with coronary artery disease, history of CABG, cardiac valve replacement, diabetes. Objective - Vital Signs Vital signs: Vital Signs Temp 96.8 F L 06/20/20 08:00 Pulse 73 06/20/20 09:00 Resp 20 06/20/20 09:00 BP 149/88 06/20/20 09:00 Pulse Ox 97 06/20/20 07:00 Intake & Output 06/19/20 06/20/20 06/20/20 18:59 06:59 18:59 Intake Total 869.882 318.925 36.925 Output Total 70 60 10 Balance 799.882 258.925 26.925 Weight 112.6 kg Intake: IV 212 199 26 0.9NS 110 126 20 Pressure Bags 72 73 6 Sodium Chloride 0.9% 1, 30 000 ml @ 75 mls/hr IV . [id number] MOMO Rx#:[id number] Intake, IV Titration 57.882 113.925 10.925 Amount Insulin Regular 100 unit 53.446 75.968 10.925 In Sodium Chloride 0.9% 100 ml @ Per Protocol IV .Q0M MOMO Rx#:[id number] Norepinephrine 32 mg In 4.436 37.957 Sodium Chloride 0.9% 218 ml @ 0.05 MCG/KG/MIN 2. 276 mls/hr IV .Q24H MOMO Rx#:[id number] Oral 600 Lipid 6 Pressure Bags 6 Output: Urine 70 60 10 Other: Voiding Method Indwelling Catheter Indwelling Catheter Indwelling Catheter # Voids 1 # Bowel Movements 1 ABP, PAP, CO, CI - Last Documented Arterial Blood Pressure 104/48 On examination awake alert oriented comfortable HEENT exam no JVP neck is supple no facial asymmetry Lungs are clear to auscultation good air entry bilaterally Heart sounds unremarkable for any murmur rub gallop Abdomen soft nontender. Extremity exam was no edema Neurologically awake alert oriented - Labs CBC & Chem 7: 06/20/20 04:35 06/20/20 04:35 Labs: Abnormal Lab Results - Last 24 Hours (Table) 06/19/20 06/19/20 06/19/20 Range/Units 11:45 14:01 16:00 RBC (4.30-5.90) m/uL Hgb (13.0-17.5) gm/dL Hct (39.0-53.0) % RDW (11.5-15.5) % Plt Count (150-450) k/uL Lymphocytes # (1.0-4.8) k/uL Sodium (137-145) mmol/L BUN (9-20) mg/dL Creatinine (0.66-1.25) mg/dL Glucose (74-99) mg/dL POC Glucose (mg/dL) 230 H 219 H 203 H (75-99) mg/dL Calcium (8.4-10.2) mg/dL AST (17-59) U/L ALT (4-49) U/L Total Protein (6.3-8.2) g/dL Albumin (3.5-5.0) g/dL 06/19/20 06/19/20 06/19/20 Range/Units 18:06 19:43 22:06 RBC (4.30-5.90) m/uL Hgb (13.0-17.5) gm/dL Hct (39.0-53.0) % RDW (11.5-15.5) % Plt Count (150-450) k/uL Lymphocytes # (1.0-4.8) k/uL Sodium (137-145) mmol/L BUN (9-20) mg/dL Creatinine (0.66-1.25) mg/dL Glucose (74-99) mg/dL POC Glucose (mg/dL) 307 H 279 H 241 H (75-99) mg/dL Calcium (8.4-10.2) mg/dL AST (17-59) U/L ALT (4-49) U/L Total Protein (6.3-8.2) g/dL Albumin (3.5-5.0) g/dL 06/20/20 06/20/20 06/20/20 Range/Units 00:07 02:07 04:33 RBC (4.30-5.90) m/uL Hgb (13.0-17.5) gm/dL Hct (39.0-53.0) % RDW (11.5-15.5) % Plt Count (150-450) k/uL Lymphocytes # (1.0-4.8) k/uL Sodium (137-145) mmol/L BUN (9-20) mg/dL Creatinine (0.66-1.25) mg/dL Glucose (74-99) mg/dL POC Glucose (mg/dL) 169 H 197 H 233 H (75-99) mg/dL Calcium (8.4-10.2) mg/dL AST (17-59) U/L ALT (4-49) U/L Total Protein (6.3-8.2) g/dL Albumin (3.5-5.0) g/dL 06/20/20 06/20/20 06/20/20 Range/Units 04:35 04:35 06:03 RBC 3.36 L (4.30-5.90) m/uL Hgb 10.7 L (13.0-17.5) gm/dL Hct 33.2 L (39.0-53.0) % RDW 15.6 H (11.5-15.5) % Plt Count 126 L (150-450) k/uL Lymphocytes # 0.3 L (1.0-4.8) k/uL Sodium 133 L (137-145) mmol/L BUN 60 H (9-20) mg/dL Creatinine 7.96 H* (0.66-1.25) mg/dL Glucose 224 H (74-99) mg/dL POC Glucose (mg/dL) 202 H (75-99) mg/dL Calcium 8.1 L (8.4-10.2) mg/dL AST 123 H (17-59) U/L ALT 376 H (4-49) U/L Total Protein 5.3 L (6.3-8.2) g/dL Albumin 2.8 L (3.5-5.0) g/dL 11/15/20 Range/Units 08:06 RBC (4.30-5.90) m/uL Hgb (13.0-17.5) gm/dL Hct (39.0-53.0) % RDW (11.5-15.5) % Plt Count (150-450) k/uL Lymphocytes # (1.0-4.8) k/uL Sodium (137-145) mmol/L BUN (9-20) mg/dL Creatinine (0.66-1.25) mg/dL Glucose (74-99) mg/dL POC Glucose (mg/dL) 194 H (75-99) mg/dL Calcium (8.4-10.2) mg/dL AST (17-59) U/L ALT (4-49) U/L Total Protein (6.3-8.2) g/dL Albumin (3.5-5.0) g/dL Assessment and Plan Assessment: Impression 1. ESRD on dialysis Sunday., Access his right arm 2. Admitted with chest pain acute LA stented to cardiac arrest and now stable, was on small doses of levo fed, has been discontinued. 3. History of diabetes mellitus, coronary artery bypass graft. 4. Congestive heart failure. Chest x-ray remains unchanged with congestive heart failure Recommendation 1. Schedule for dialysis tomorrow will take off 3 L over 4 hours. 2. No need to start Midrin as well as pressures above 90 systolic, and this is symptomatic with dizziness. 3. Hemoglobin was 10.7 we will watch it
--- NOTE | 2020-06-20 10:46 | P.PN ---
Subjective Progress Note Date: 06/20/20 HISTORY OF PRESENT ILLNESS 65-year-old male one of my office patient who seen cardiology regular basis know n to have history of coronary disease post bypass surgery with MCDERMOTT to the LAD and [place] the graft on the left circumflex artery. Patient also with dialysis the times a week and has been doing well till few days earlier when he developed to have significant chest pain with exertion associated with significant shortness of breath ended up coming to the emergency department tested and cardiac enzymes were negative patient ended up being discharged home to see cardiology as an outpatient. Hardly finish dialysis today with patient developed to have significant midsternal chest point and along with nausea without vomiting and had significant lightheadedness. Patient ended up coming [facility] at [facility] where was seen his CK was significantly elevated originally and the total was 2.70. Patient will be kept on heparin drip seeing cardiology and plan for heart catheter based on current symptoms. 06/15: Patient remains in the ER waiting for a cardiac stepdown bed. He has been seen by cardiology and continued on aspirin and heparin, lisinopril decreased. He is scheduled for heart catheterization this afternoon. He is also scheduled for hemodialysis tomorrow. Echocardiogram report is pending. Patient has been afebrile, heart rate 77, blood pressure 98/57, pulse ox 95% on 2 L nasal cannula. Troponins have been 2.62, 2.7, 2.69. 06/16: Yesterday, patient underwent heart catheterization and stent of the RCA with Dr. Cordero. Patient had returned to his room and around 6:30 he had a cardiopulmonary arrest. He initially was PEA and was given 4 A of epi, bicarb and shocked. He was intubated and transferred to the intensive care unit. Patient remains intubated and on mechanical ventilation with tidal volume 500, FiO2 40, PEEP of 5. He is currently on Nimbex and norepinephrine. We will plan to start insulin drip this morning. Echocardiogram reveals EF of 30-35% with severe concentric left hypertrophy. Repeat lab work reveals WBC 7.4, hemoglobin 11.5, platelet count 120. Sodium 134, potassium 5.4, BUN 15 creatinine 7.54. AST 604, ALT 418. He is followed by pulmonary medicine. Nephrology is planning for repeat hemodialysis today and he is tentatively scheduled for heart catheterization again today. Chest x-ray this morning reveals suggestive of hea rt failure and mild interstitial pulmonary edema. Patchy retrocardiac opacities probably atelectasis. 06/17: Patient was successfully extubated yesterday. Repeat chest x-ray reveals correlate for interstitial edema, pneumonia, difficult to exclude small effusions. He is scheduled for hemodialysis tomorrow. He currently denies having any shortness of breath. He is complaining of significant chest wall pain from CPR. Will add an IV and oral pain medications for options. He remains on norepinephrine. He has been afebrile, heart rate 75, blood pressure 121/48, pulse ox 99% on room air. Repeat blood work reveals WBC 10.6, hemoglobin 1.8. Platelet count 144. Sodium 133, potassium 5.0, chloride 99, CO2 25, BUN 45 creatinine 6.79. Total bilirubin 1.4, AST 484, ALT 498, alkaline phosphatase 106. TSH 1.02. Cortisol level 18. Patient remains on insulin drip. 06/18: Patient remains in the intensive care unit on levo fed and insulin drip. He is scheduled for hemodialysis today. Patient denies any new complaints today. He does have chest pain from CPR. Mild shortness of breath. He has been afebrile, heart rate 70, blood pressure 111/48, pulse ox 96% on 4 L nasal cannula. Repeat blood work reveals WBC of 8.5, hemoglobin 11.7, platelet count 123. Sodium 133, potassium 4.93 creatinine 7.99. Blood sugars running between 126 and 140. Total bilirubin 1.5, AST 271, ALT 438. Troponin 19.9. 06/19: Patient remains in intensive care continues on levo fed and insulin drip. Patient had dialysis yesterday. He is currently sitting up in the chair with no new complaints. Patient has been afebrile, heart rate 78, blood pressure 102/57 on vasopressors, pulse oxing 97% on 4 L nasal cannula. The CBC 7.1, hemoglobin 11.5, potassium 4.6, creatinine 46, BUN 9. 06/20: Patient remains in the intensive care unit he is currently off any vasopressors. Continues with insulin drip until it can be converted to his insulin pump. Patient will have dialysis on Sunday. He is sitting up in bed without any new complaints or concerns. Patient is still having some chest discomfort related to the rib fracture due to CPR. [facility] tomorrow if he is doing well. W BC 7.1, hemoglobin 10.7, potassium 5.0, BUN is 60 creatinine 7.96. REVIEW OF SYSTEMS Constitutional: No fever, no chills, no night sweats. No weight change. No weakness, fatigue or lethargy. No daytime sleepiness. EENT: No headache. No blurred vision or double vision, no loss of vision. No loss of Hearing, no ringing in the ears, no dizziness. No nasal drainage or congestion. No epistaxis. No sore throat. Lungs: Mild shortness of breath, cough, no sputum production. No wheezing. Cardiovascular: Reports chest pain, no lower extremity edema. No palpitations. No paroxysmal nocturnal dyspnea. No orthopnea. No lightheadedness or dizzines s. No syncopal episodes. Abdominal: No abdominal pain. No nausea, vomiting. No diarrhea. No cons tipation. No bloody or tarry stools.. No loss of appetite. Genitourinary: No dysuria, increased frequency, urgency. No urinary retention. Musculoskeletal: No myalgias. No muscle weakness, no gait dysfunction, no frequent falls. No back pain. No neck pain. Integumentary: No wounds, no lesions. No rash or pruritus. No unusual bruising. No change in hair or nails. Neurologic: No aphasia. No facial droop. No change in mentation. No head injury. No headache. No paralysis. No paresthesia. Psychiatric: No depression. No anxiety. No mood swings. Endocrine: No abnormal blood sugars. No weight change. No excessive sweating or thirst. No cold intolerance. PHYSICAL EXAMINATION General Appearance: Alert, cooperative, no distress, appears stated age. Neck HEENT: Supple, no lymphadenopathy Lungs: Crackles in the bilateral bases more so on the left Chest Wall: Chest wall normal expansion with deep inspiration and no deformity was found on exam. Heart: Regular rate and rhythm, S1, S2 normal, no murmur, rub or gallop. Back: Symmetric, no curvature, ROM normal, no CVA tenderness. Abdomen: Soft, non-tender, bowel sounds active all four quadrants, no masses, no organomegaly. Alberts with small amount of dark urine. Extremities: Extremities normal, atraumatic, no cyanosis or edema. Fistula graft in the left forearm. Pulses: 2+ and symmetric. Skin: Skin color, texture, tugor normal, no rashes or lesions. Neurologic: Patient is awake alert and oriented 3. No neuro deficits noted. ASSESSMENT AND PLAN 1 acute coronary syndrome, acute non-ST elevated myocardial infarction. Status post heart catheterization and stent of the RCA. Echocardiogram as above. Continue aspirin 81 mg daily, Lipitor 80 mg daily, Plavix 75 mg daily, continue Ranexa 1000 mg daily. 2 cardiopulmonary arrest with cardiogenic shock. Norepinephrine DC'd 3 acute hypoxic respiratory failure secondary to cardiopulmonary arrest requiring intubation, successfully extubated. Patient followed by pulmonary medicine. Currently on 4 L nasal cannula 4 chest pain secondary to CPR. Low-dose Dilaudid, [place] and Tylenol added as needed for pain. 5 End-stage renal disease on hemodialysis 3 times a week which will be continued for now. Patient will have hemodialysis on Sunday 4 Hypertension, previously hypotensive currently off vasopressor 5 Type 2 diabetes uncontrolled with hyperglycemia. Patient on insulin drip. Patient may be transitioned to insulin pump later today. 6 advance cardiomyopathy. 7 Post aortic valve placement. 8 frequent PVCs continue Ranexa. 9 hyperlipidemia: Remain on atorvastatin. 10 hypothyroidism. Continue levothyroxine 50 g daily. 11 BPH: Watch for any urinary retention. Alberts catheter in place. 12 chronic edema: Continue diuretics. 13 GI prophylaxis: Patient will be on Pepcid. 14 DVT prophylaxis: Continue anticoagulation for now. 15 chronic thrombocytopenia. 16 elevated liver function tests secondary to shock liver. 17. Anemia of chronic kidney disease. CODE STATUS: Full code. DISCHARGE PLAN Home once stabilized Impression and plan of care have been directed as dictated by the signing physician. Kati Baker nurse practitioner acting as scribe for signing physician. Objective - Vital Signs Vital signs: Vital Signs Temp 96.8 F L 06/20/20 08:00 Pulse 70 06/20/20 10:00 Resp 16 06/20/20 10:00 BP 149/88 06/20/20 10:00 Pulse Ox 98 06/20/20 10:00 Intake & Output 06/19/20 06/20/20 06/20/20 18:59 06:59 18:59 Intake Total 869.882 318.925 159.470 Output Total 70 60 10 Balance 799.882 258.925 149.470 Weight 112.6 kg Intake: IV 212 199 39 0.9NS 110 126 30 Pressure Bags 72 73 9 Sodium Chloride 0.9% 1, 30 000 ml @ 75 mls/hr IV . [id number] MOMO Rx#:[id number] Intake, IV Titration 57.882 113.925 20.470 Amount Insulin Regular 100 unit 53.446 75.968 20.470 In Sodium Chloride 0.9% 100 ml @ Per Protocol IV .Q0M MOMO Rx#:[id number] Norepinephrine 32 mg In 4.436 37.957 Sodium Chloride 0.9% 218 ml @ 0.05 MCG/KG/MIN 2. 276 mls/hr IV .Q24H MOMO Rx#:[id number] Oral 600 100 Lipid 6 Pressure Bags 6 Output: Urine 70 60 10 Other: Voiding Method Indwelling Catheter Indwelling Catheter Indwelling Catheter # Voids 1 # Bowel Movements 1 ABP, PAP, CO, CI - Last Documented Arterial Blood Pressure 105/48 - Labs CBC & Chem 7: 06/20/20 04:35 06/20/20 04:35 Labs: Abnormal Lab Results - Last 24 Hours (Table) 06/19/20 06/19/20 06/19/20 Range/Units 11:45 14:01 16:00 RBC (4.30-5.90) m/uL Hgb (13.0-17.5) gm/dL Hct (39.0-53.0) % RDW (11.5-15.5) % Plt Count (150-450) k/uL Lymphocytes # (1.0-4.8) k/uL Sodium (137-145) mmol/L BUN (9-20) mg/dL Creatinine (0.66-1.25) mg/dL Glucose (74-99) mg/dL POC Glucose (mg/dL) 230 H 219 H 203 H (75-99) mg/dL Calcium (8.4-10.2) mg/dL AST (17-59) U/L ALT (4-49) U/L Total Protein (6.3-8.2) g/dL Albumin (3.5-5.0) g/dL 06/19/20 06/19/20 06/19/20 Range/Units 18:06 19:43 22:06 RBC (4.30-5.90) m/uL Hgb (13.0-17.5) gm/dL Hct (39.0-53.0) % RDW (11.5-15.5) % Plt Count (150-450) k/uL Lymphocytes # (1.0-4.8) k/uL Sodium (137-145) mmol/L BUN (9-20) mg/dL Creatinine (0.66-1.25) mg/dL Glucose (74-99) mg/dL POC Glucose (mg/dL) 307 H 279 H 241 H (75-99) mg/dL Calcium (8.4-10.2) mg/dL AST (17-59) U/L ALT (4-49) U/L Total Protein (6.3-8.2) g/dL Albumin (3.5-5.0) g/dL 06/20/20 06/20/20 06/20/20 Range/Units 00:07 02:07 04:33 RBC (4.30-5.90) m/uL Hgb (13.0-17.5) gm/dL Hct (39.0-53.0) % RDW (11.5-15.5) % Plt Count (150-450) k/uL Lymphocytes # (1.0-4.8) k/uL Sodium (137-145) mmol/L BUN (9-20) mg/dL Creatinine (0.66-1.25) mg/dL Glucose (74-99) mg/dL POC Glucose (mg/dL) 169 H 197 H 233 H (75-99) mg/dL Calcium (8.4-10.2) mg/dL AST (17-59) U/L ALT (4-49) U/L Total Protein (6.3-8.2) g/dL Albumin (3.5-5.0) g/dL 06/20/20 06/20/20 06/20/20 Range/Units 04:35 04:35 06:03 RBC 3.36 L (4.30-5.90) m/uL Hgb 10.7 L (13.0-17.5) gm/dL Hct 33.2 L (39.0-53.0) % RDW 15.6 H (11.5-15.5) % Plt Count 126 L (150-450) k/uL Lymphocytes # 0.3 L (1.0-4.8) k/uL Sodium 133 L (137-145) mmol/L BUN 60 H (9-20) mg/dL Creatinine 7.96 H* (0.66-1.25) mg/dL Glucose 224 H (74-99) mg/dL POC Glucose (mg/dL) 202 H (75-99) mg/dL Calcium 8.1 L (8.4-10.2) mg/dL AST 123 H (17-59) U/L ALT 376 H (4-49) U/L Total Protein 5.3 L (6.3-8.2) g/dL Albumin 2.8 L (3.5-5.0) g/dL 06/20/20 06/20/20 Range/Units 08:06 10:12 RBC (4.30-5.90) m/uL Hgb (13.0-17.5) gm/dL Hct (39.0-53.0) % RDW (11.5-15.5) % Plt Count (150-450) k/uL Lymphocytes # (1.0-4.8) k/uL Sodium (137-145) mmol/L BUN (9-20) mg/dL Creatinine (0.66-1.25) mg/dL Glucose (74-99) mg/dL POC Glucose (mg/dL) 194 H 165 H (75-99) mg/dL Calcium (8.4-10.2) mg/dL AST (17-59) U/L ALT (4-49) U/L Total Protein (6.3-8.2) g/dL Albumin (3.5-5.0) g/dL
[2020-06-20 11:48] LABS: Glucose,Whole Blood 200 mg/dL (75-99)
--- NOTE | 2020-06-20 12:14 | P.PN ---
Subjective Progress Note Date: 06/20/20 Principal diagnosis: The patient is seen today in follow-up in the intensive care unit. He was admitted to the hospital after developing chest pain following dialysis. He presented to the emergency room and found to have an acute coronary syndrome with a non-ST segment elevation myocardial infarction. He had gone to the [facility] and had a stent placed to the right coronary artery. Soon after that he had a cardiac arrest and had approximately 12 minutes of resuscitation. He did have return of spontaneous circulation. He is seen today in follow-up. He remains intubated on mechanical ventilator. Current settings assist-control of 18, tidal volume 500, FiO2 40% and a PEEP of 5. Arterial blood gases drawn this morning on 50% FiO2 revealed a pCO2 of 119, CO2 42, pH 7.43. He remains sedated on propofol at 25 mcg/kg/m. He's on Nimbex at 2 mcg/kg/m. He is requiring norepinephrine at 39 mcg/m. He is on insulin drip at 8 units per hour. 0.9 normal saline at 75 ML's per hour. His echocardiogram revealed ejection fraction of 30-35%. CVP running about 12. Chest x-ray reveals evidence of congestive heart failure with mild interstitial pulmonary edema. Patchy retrocardiac opacity suspected to be atelectasis. White count 7.4. Hemoglobin 11.5. Platelet count 120,000. Sodium 134. Potassium 5.4. BUN 50. Creatinine 7.54. AST 604. ALT 418. Remains on DuoNeb inhalations. The patient is seen today in 06/17/2020 and follow-up in the intensive care unit . He was successfully extubated yesterday. Currently he is awake and alert and doing well. He is on oxygen at 3 L/m per nasal cannula. He has 0.9 normal saline at 75 ML's per hour. He is still requiring norepinephrine at 25 mcg/m. He is on a insulin drip at 1.5 units per hour. This is day #2 following stent to the RCA. He was an Non-STEMI. White count 10.6. Hemoglobin 11.8. Sodium 133. Potassium 5.0. Creatinine 6.79. AST 11/08/1983. ALT 498. Troponin 28.2. Chest x-ray reveals interstitial edema with small effusions. The patient is seen today 06/18/2020 in follow-up in the intensive care unit. He is currently awake and alert in no acute distress. Last evening he developed increasing shortness of breath and low O2 saturations. He was placed on BiPAP 12/5 and 50% FiO2. He was given Lasix 40 mg IV push times one. Chest x-ray reveals evidence of fluid volume overload. He did receive hemodialysis yesterday and the plans are for repeat today. He is still requiring nor epinephrine 18 mcg/m. He is on insulin drip at 0.5 units per hour. 0.9, Sinemet 20 ML's per hour. White count 8.5. Hemoglobin 11.7. Platelet count 123,000. 2133. Potassium 4.9. BUN 57. Creatinine 7.99. AST 271. ALT 438. Troponin 19.9. Serum cortisol level 18. The patient is seen today in follow-up in the intensive care unit. He was admitted to the hospital after developing chest pain following dialysis. He presented to the emergency room and found to have an acute coronary syndrome with a non-ST segment elevation myocardial infarction. He had gone to the [facility] and had a stent placed to the right coronary artery. Soon after that he had a cardiac arrest and had approximately 12 minutes of resuscitation. He did have return of spontaneous circulation. He is seen today in follow-up. He remains intubated on mechanical ventilator. Current settings assist-control of 18, tidal volume 500, FiO2 40% and a PEEP of 5. Arterial blood gases drawn this morning on 50% FiO2 revealed a pCO2 of 119, CO2 42, pH 7.43. He remains sedated on propofol at 25 mcg/kg/m. He's on Nimbex at 2 mcg/kg/m. He is requiring norepinephrine at 39 mcg/m. He is on insulin drip at 8 units per hour. 0.9 normal saline at 75 ML's per hour. His echocardiogram revealed ejection fraction of 30-35%. CVP running about 12. Chest x-ray reveals evidence of congestive heart failure with mild interstitial pulmonary edema. Patchy retrocardiac opacity suspected to be atelectasis. White count 7.4. Hemoglobin 11.5. Platelet count 120,000. Sodium 134. Potassium 5.4. BUN 50. Creatinine 7.54. AST 604. ALT 418. Remains on DuoNeb inhalations. The patient is seen today in 06/17/2020 and follow-up in the intensive care unit. He was successfully extubated yesterday. Currently he is awake and alert and doing well. He is on oxygen at 3 L/m per nasal cannula. He has 0.9 normal saline at 75 ML's per hour. He is still requiring norepinephrine at 25 mcg/m. He is on a insulin drip at 1.5 units per hour. This is day #2 following stent to the RCA. He was an Non-STEMI. White count 10.6. Hemoglobin 11.8. Sodium 133. Potassium 5.0. Creatinine 6.79. AST 11/08/1983. ALT 498. Troponin 28.2. Chest x-ray reveals interstitial edema with small effusions. The patient is seen today 06/18/2020 in follow-up in the intensive care unit. He is currently awake and alert in no acute distress. Last evening he developed increasing shortness of breath and low O2 saturations. He was placed on BiPAP 12/ and 50% FiO2. He was given Lasix 40 mg IV push times one. Chest x-ray reveals evidence of fluid volume overload. He did receive hemodialysis yesterday and the plans are for repeat today. He is still requiring norepinephrine 18 mcg/m. He is on insulin drip at 0.5 units per hour. 0.9, Sinemet 20 ML's per hour. White count 8.5. Hemoglobin 11.7. Platelet count 123,000. 2133. Potassium 4.9. BUN 57. Creatinine 7.99. AST 271. ALT 438. Troponin 19.9. Serum cortisol level 18. The patient is seen today 06/19/2020 in follow-up in the intensive care unit. He is currently sitting up in a chair at the bedside. Awake and alert in no acute distress. Doing quite a bit better today compared to yesterday. He is on 4 L/m per nasal cannula to maintain O2 saturation in the 90s. Chest x-ray shows evidence of fluid volume overload, small effusions. Pneumonia not excluded. Currently afebrile. Still requiring norepinephrine at 2.24 mcg/m. 0.9 normal saline at 10 MLS per hour. He is receiving hemodialysis on Sunday. Denies any chest pain currently. No worsening shortness of breath, cough or congestion. White count 7.1. Hemoglobin 11.5. Platelets 136. Sodium 136. Potassium 4.6. Creatinine 6.42. Patient seen today 06/19/2020 in follow-up in the intensive care unit. He is currently sitting up in a chair at the bedside. Awake and alert in no acute distress. He is improving daily. He is on 2 L/m per nasal cannula to maintain O2 saturation in the 90s. 0.9 normal saline at 10 MLS per hour. Norepinephrine is now off. Insulin drip at 4.5 units per hour. Chest x-ray reveals persistent cardiomegaly with some mild pulmonary vascular congestion scattered infiltrates. Stable compared to previous. White count 7.1. Hemoglobin 10.7. Platelet count 126,000. Sodium 133. Potassium 5.0. Creatinine 7.96. Glucose 224. AST 123. ALT 376. His hemodialysis is Sunday schedule. Objective - Vital Signs Vital signs: Vital Signs Temp 96.8 F L 06/20/20 08:00 Pulse 69 06/20/20 11:00 Resp 13 06/20/20 11:00 BP 149/88 06/20/20 10:00 Pulse Ox 97 06/20/20 11:00 Intake & Output 06/19/20 06/20/20 06/20/20 18:59 06:59 18:59 Intake Total 869.882 318.925 178.538 Output Total 70 60 10 Balance 799.882 258.925 168.538 Weight 112.6 kg Intake: IV 212 199 52 0.9NS 110 126 40 Pressure Bags 72 73 12 Sodium Chloride 0.9% 1, 30 000 ml @ 75 mls/hr IV . [id number] [facility] Rx#:[id number] Intake, IV Titration 57.882 113.925 26.538 Amount Insulin Regular 100 unit 53.446 75.968 26.538 In Sodium Chloride 0.9% 100 ml @ Per Protocol IV .Q0M [facility] Rx#:[id number] Norepinephrine 32 mg In 4.436 37.957 Sodium Chloride 0.9% 218 ml @ 0.05 MCG/KG/MIN 2. 276 mls/hr IV .Q24H [facility] Rx#:[id number] Oral 600 100 Lipid 6 Pressure Bags 6 Output: Urine 70 60 10 Other: Voiding Method Indwelling Catheter Indwelling Catheter Indwelling Catheter # Voids 1 # Bowel Movements 1 ABP, PAP, CO, CI - Last Documented Arterial Blood Pressure 104/41 - Exam GENERAL EXAM: Awake, alert, very pleasant 65-year-old gentleman, on 2 L nasal cannula,, comfortable in no apparent distress. HEAD: Normocephalic. EYES: Sluggish reaction of pupils, equal size. NOSE: Clear with pink turbinates. THROAT: Oral endotracheal and gastric tube secured in place. No erythema or exudates. NECK: No masses, no JVD. Left internal jugular triple-lumen catheter in place. CHEST: No chest wall deformity. LUNGS: Equal air entry with crackles in the bilateral posterior bases, right greater than left. CVS: S1 and S2 normal with no audible murmur, regular rhythm. ABDOMEN: No hepatosplenomegaly, normal bowel sounds, no guarding or rigidity. SPINE: No scoliosis or deformity SKIN: No rashes CENTRAL NERVOUS SYSTEM: No focal deficits. Tone is normal in all 4 extremities. EXTREMITIES: AV fistula in the right upper extremity. There is no peripheral edema. No clubbing, no cyanosis. Peripheral pulses are intact. - Labs CBC & Chem 7: 06/20/20 04:35 06/20/20 04:35 Labs: Abnormal Lab Results - Last 24 Hours (Table) 06/19/20 06/19/20 06/19/20 Range/Units 14:01 16:00 18:06 RBC (4.30-5.90) m/uL Hgb (13.0-17.5) gm/dL Hct (39.0-53.0) % RDW (11.5-15.5) % Plt Count (150-450) k/uL Lymphocytes # (1.0-4.8) k/uL Sodium (137-145) mmol/L BUN (9-20) mg/dL Creatinine (0.66-1.25) mg/dL Glucose (74-99) mg/dL POC Glucose (mg/dL) 219 H 203 H 307 H (75-99) mg/dL Calcium (8.4-10.2) mg/dL AST (17-59) U/L ALT (4-49) U/L Total Protein (6.3-8.2) g/dL Albumin (3.5-5.0) g/dL 06/19/20 06/19/20 06/20/20 Range/Units 19:43 22:06 00:07 RBC (4.30-5.90) m/uL Hgb (13.0-17.5) gm/dL Hct (39.0-53.0) % RDW (11.5-15.5) % Plt Count (150-450) k/uL Lymphocytes # (1.0-4.8) k/uL Sodium (137-145) mmol/L BUN (9-20) mg/dL Creatinine (0.66-1.25) mg/dL Glucose (74-99) mg/dL POC Glucose (mg/dL) 279 H 241 H 169 H (75-99) mg/dL Calcium (8.4-10.2) mg/dL AST (17-59) U/L ALT (4-49) U/L Total Protein (6.3-8.2) g/dL Albumin (3.5-5.0) g/dL 06/20/20 06/20/20 06/20/20 Range/Units 02:07 04:33 04:35 RBC 3.36 L (4.30-5.90) m/uL Hgb 10.7 L (13.0-17.5) gm/dL Hct 33.2 L (39.0-53.0) % RDW 15.6 H (11.5-15.5) % Plt Count 126 L (150-450) k/uL Lymphocytes # 0.3 L (1.0-4.8) k/uL Sodium (137-145) mmol/L BUN (9-20) mg/dL Creatinine (0.66-1.25) mg/dL Glucose (74-99) mg/dL POC Glucose (mg/dL) 197 H 233 H (75-99) mg/dL Calcium (8.4-10.2) mg/dL AST (17-59) U/L ALT (4-49) U/L Total Protein (6.3-8.2) g/dL Albumin (3.5-5.0) g/dL 06/20/20 06/20/20 06/20/20 Range/Units 04:35 06:03 08:06 RBC (4.30-5.90) m/uL Hgb (13.0-17.5) gm/dL Hct (39.0-53.0) % RDW (11.5-15.5) % Plt Count (150-450) k/uL Lymphocytes # (1.0-4.8) k/uL Sodium 133 L (137-145) mmol/L BUN 60 H (9-20) mg/dL Creatinine 7.96 H* (0.66-1.25) mg/dL Glucose 224 H (74-99) mg/dL POC Glucose (mg/dL) 202 H 194 H (75-99) mg/dL Calcium 8.1 L (8.4-10.2) mg/dL AST 123 H (17-59) U/L ALT 376 H (4-49) U/L Total Protein 5.3 L (6.3-8.2) g/dL Albumin 2.8 L (3.5-5.0) g/dL 06/20/20 06/20/20 Range/Units 10:12 11:46 RBC (4.30-5.90) m/uL Hgb (13.0-17.5) gm/dL Hct (39.0-53.0) % RDW (11.5-15.5) % Plt Count (150-450) k/uL Lymphocytes # (1.0-4.8) k/uL Sodium (137-145) mmol/L BUN (9-20) mg/dL Creatinine (0.66-1.25) mg/dL Glucose (74-99) mg/dL POC Glucose (mg/dL) 165 H 200 H (75-99) mg/dL Calcium (8.4-10.2) mg/dL AST (17-59) U/L ALT (4-49) U/L Total Protein (6.3-8.2) g/dL Albumin (3.5-5.0) g/dL Assessment and Plan Assessment: 1 Non-ST segment elevation myocardial infarction, status post placement to the RCA, status post cardiopulmonary arrest 06/15/2020 2 Acute hypoxemic respiratory failure secondary to above requiring intubation mechanical ventilatory support, successfully extubated 06/16/2020 and currently on 2 L nasal cannula 3 Profound hypotension, shock, requiring pressor support, currently weaned off the norepinephrine 4 Severe ischemic cardiomyopathy with ejection fraction 30-35% 5 History of previous aortic valve replacement and coronary artery bypass grafting 2 6 Diabetes mellitus 7 Diabetic neuropathy 8 End-stage renal disease receiving dialysis Sunday 9 Hyperlipidemia 10 History of hypertension 11 Chronic anemia 12 Elevated liver enzymes in secondary to cardiogenic shock Plan: The patient was seen and evaluated by Dr. Umanzor Chest x-ray, labs reviewed Continue the current treatment plan Norepinephrine has been weaned off Titrate down the FiO2 as tolerated We will continue to follow and make further recommendations based on his clinica l status I, the cosigning physician, performed a history & physical examination of the patient. Lungs sounds with bilateral crackles in the posterior uses, right greater than left. Maintaining good O2 saturations in the 90s on 4 L/m per nasal cannula. I discussed the assessment and plan of care with my nurse practitioner, Yue Espino. I attest to the above note as dictated by her.
[2020-06-20 14:01] LABS: Glucose,Whole Blood 199 mg/dL (75-99)
[2020-06-20 15:48] LABS: Glucose,Whole Blood 225 mg/dL (75-99)
[2020-06-20] MEDS: INSULIN REGULAR 100 UNIT in SODIUM CHLORIDE 0.9% 100 ML IV SCH (15:51)
[2020-06-20] MEDS ORDERED: NITROGLYCERIN OINT 1 INCH/GM PACKET TOPICAL ONE (16:51)
[2020-06-20] MEDS ORDERED: NITROGLYCERIN SL TABS 0.4 MG TAB SUBLINGUAL ONE ×2 (16:52→16:55)
[2020-06-20] MEDS ORDERED: NITROGLYCERIN SL TABS 0.4 MG TAB SUBLINGUAL PRN (17:06)
[2020-06-20 17:46] LABS: Glucose,Whole Blood 189 mg/dL (75-99)
[2020-06-20 20:49] LABS: Glucose,Whole Blood 198 mg/dL (75-99)
[2020-06-20 22:14] LABS: Glucose,Whole Blood 206 mg/dL (75-99)
[2020-06-20] MEDS: NOREPINEPHRINE 32 MG in SODIUM CHLORIDE 0.9% 218 ML IV SCH (22:20)
[2020-06-21] MEDS: HYDROmorphone 0.5 MG/0.5 ML SYRINGE IVP PRN ×3 (00:28→23:25)
[2020-06-21] MEDS: HYDROCORTISONE SUCCINATE 100 MG/2 ML VIAL IV SCH ×3 (00:31→17:48)
[2020-06-21 00:43] LABS: Glucose,Whole Blood 174 mg/dL (75-99)
[2020-06-21 02:35] LABS: Glucose,Whole Blood 161 mg/dL (75-99)
[2020-06-21 04:22] LABS: Glucose,Whole Blood 143 mg/dL (75-99)
[2020-06-21 05:07] LABS: Anisocytosis Slight; Basophils % (A) 0 %; Eosinophils % (A) 0 %; HCT 35.9 % (39.0-53.0); HGB 11.2 gm/dL (13.0-17.5); Hypochromasia Slight; Lymphocytes # (A) 0.4 k/uL (1.0-4.8); Lymphocytes % (A) 4 %; MCH 31.1 pg (25.0-35.0); MCHC 31.4 g/dL (31.0-37.0); Macrocytosis Slight; Mean Platelet Volume 8.1; Monocytes # (A) 0.3 k/uL (0-1.0); Monocytes % (A) 3 %; Neutrophils # (A) 8.6 k/uL (1.3-7.7); Neutrophils % (A) 92 %; Platelet Count 154 k/uL (150-450); RBC 3.62 m/uL (4.30-5.90); RDW 16.2 % (11.5-15.5); WBC 9.3 k/uL (3.8-10.6)
[2020-06-21 05:31] LABS: Albumin 2.9 g/dL (3.5-5.0); Calcium 7.9 mg/dL (8.4-10.2); Potassium 5.4 mmol/L (3.5-5.1); Total Bilirubin 0.7 mg/dL (0.2-1.3); Total Protein 5.5 g/dL (6.3-8.2)
[2020-06-21] MEDS: LEVOTHYROXINE 50 MCG TAB PO SCH (06:16)
[2020-06-21] MEDS: SEVELAMER 800 MG TAB PO SCH ×3 (06:16→17:45)
[2020-06-21 06:30] LABS: Glucose,Whole Blood 145 mg/dL (75-99)
--- NOTE | 2020-06-21 07:09 | XR ---
EXAMINATION TYPE: XR chest 1V DATE OF EXAM: 06/21/2020 COMPARISON: 06/20/2020 HISTORY: Shortness of breath TECHNIQUE: Single frontal view of the chest is obtained. FINDINGS: Bilateral consolidation and pleural effusion. Central line noted. No pneumothorax. Heart i s enlarged. Osseous structures stable. IMPRESSION: Stable pleural-parenchymal changes correlate for pneumonia. Underlying CHF not excluded.
[2020-06-21] MEDS: INSULIN REGULAR 100 UNIT in SODIUM CHLORIDE 0.9% 100 ML IV SCH (07:11)
[2020-06-21] MEDS: IPRATROPIUM-ALBUTEROL 3 ML NEB INHALATION SCH ×5 (08:16→19:50)
[2020-06-21 09:03] LABS: Glucose,Whole Blood 125 mg/dL (75-99)
--- NOTE | 2020-06-21 09:46 | PN ---
PROGRESS NOTE Mr. Rosales is a 65-year-old male with known history of coronary artery disease, status post coronary artery bypass grafting, prior percutaneous revascularization, history of aortic valve surgery. He presented with unstable angina or non STEMI, underwent angioplasty of the proximal right coronary artery. Postprocedure, he had cardiac arrest requiring mechanical ventilation. He is awake, alert, extubated, complaining of chest wall tenderness. His breathing is stable. He denies any dizziness, palpitation. He denies any nausea. Hemodynamically, he is off pressors. He has no ventricular ectopic activity. Continues to be on aspirin once a day, Plavix 75 mg daily, Ranexa. PHYSICAL EXAMINATION: Blood pressure running in the 110s to 130 with a heart rate in 70s LUNGS: A few crackles at the bases, no wheezes. HEART: Regular rate and rhythm, S1, S2. No S3. No rub. Chest wall consistent with fractured ribs. ABDOMEN: Soft, nontender. EXTREMITIES: No significant edema. LAB DATA: Revealed a BUN and creatinine of 75 and 9.13. Hemoglobin of 11.2. AST of 57, IMPRESSION: 1. Status post non-STEMI with stenting of the right coronary artery. 2. Cardiopulmonary arrest. 3. Cardiomyopathy, post CPR, reported to be global. 4. End-stage renal disease, on hemodialysis. 5. Status post aortic valve replacement. 6. Coronary artery bypass grafting. 7. Hyperlipidemia. RECOMMENDATION: I will re-initiate treatment with low-dose beta renetta as well as the statin. Increase his activities and will obtain a limited echocardiogram to reassess his left ventricular systolic function and depending on his progress, further recommendation will be made. MMODL / IJN: [id number] / AISHA
[2020-06-21] MEDS: RANOLAZINE 500 MG TAB.ER.12H PO SCH (09:48)
[2020-06-21] MEDS: METOPROLOL TARTRATE 25 MG TAB PO SCH ×2 (09:48→21:26)
[2020-06-21] MEDS: FOLIC ACID-VIT B COMPLEX-VIT C 1 CAP PO SCH (09:48)
[2020-06-21 09:59] LABS: Glucose,Whole Blood 141 mg/dL (75-99)
--- NOTE | 2020-06-21 11:00 | ECHOF ---
Referral Reason:reevaluate EF MEASUREMENTS -------- HEIGHT: 175.3 cm WEIGHT: 111.6 kg BP: 116/51 IVSd: 1.9 cm (0.6 - 1.1) LVIDd: 4.2 cm (3.9 - 5.3) LVPWd: 1.7 cm (0.6 - 1.1) IVSs: 2.2 cm LVIDs: 3.6 cm LVPWs: 1.7 cm FINDINGS -------- This was a technically difficult study with suboptimal views. Limited Study Overall left ventricular systolic function is severely impaired with, an EF between 25 - 30 %. Lumason used There is no pericardial effusion. CONCLUSIONS -------- 1. Overall left ventricular systolic function is severely impaired with, an EF between 25 - 30 %. 2. There is no pericardial effusion. INVASIVE PHYSICIAN: Rocio Hooker RDCS
[2020-06-21 12:15] LABS: Glucose,Whole Blood 133 mg/dL (75-99)
[2020-06-21] MEDS: ASPIRIN 81 MG PO SCH (12:25)
[2020-06-21] MEDS: ATORVASTATIN 80 MG TAB PO SCH (12:26)
[2020-06-21] MEDS: CLOPIDOGREL 75 MG TAB PO SCH (12:26)
--- NOTE | 2020-06-21 13:29 | P.PN ---
Subjective Progress Note Date: 06/21/20 HISTORY OF PRESENT ILLNESS 65-year-old male one of my office patient who seen cardiology regular basis laura golden to have history of coronary disease post bypass surgery with MCDERMOTT to the LAD and Clarissa the graft on the left circumflex artery. Patient also with dialysis the times a week and has been doing well till few days earlier when he developed to have significant chest pain with exertion associated with significant shortness of breath ended up coming to the emergency department tested and cardiac enzymes were negative patient ended up being discharged home to see cardiology as an outpatient. Hardly finish dialysis today with patient developed to have significant midsternal chest point and along with nausea without vomiting and had significant lightheadedness. Patient ended up coming [facility] department at [facility] where was seen his CK was significantly elevated originally and the total was 2.70. Patient will be kept on heparin drip seeing cardiology and plan for heart catheter based on current symptoms. 06/15: Patient remains in the ER waiting for a cardiac stepdown bed. He has been seen by cardiology and continued on aspirin and heparin, lisinopril decreased. He is scheduled for heart catheterization this afternoon. He is also scheduled for hemodialysis tomorrow. Echocardiogram report is pending. Patient has been afebrile, heart rate 77, blood pressure 98/57, pulse ox 95% on 2 L nasal cannula. Troponins have been 2.62, 2.7, 2.69. 06/16: Yesterday, patient underwent heart catheterization and stent of the RCA with Dr. Cordero. Patient had returned to his room and around 6:30 he had a cardiopulmonary arrest. He initially was PEA and was given 4 A of epi, bicarb and shocked. He was intubated and transferred to the intensive care unit. Patient remains intubated and on mechanical ventilation with tidal volume 500, FiO2 40, PEEP of 5. He is currently on Nimbex and norepinephrine. We will plan to start insulin drip this morning. Echocardiogram reveals EF of 30-35% with severe concentric left hypertrophy. Repeat lab work reveals WBC 7.4, hemoglobin 11.5, platelet count 120. Sodium 134, potassium 5.4, BUN 15 creatinine 7.54. AST 604, ALT 418. He is followed by pulmonary medicine. Nephrology is planning for repeat hemodialysis today and he is tentatively scheduled for heart catheterization again today. Chest x-ray this morning reveals suggestive of he art failure and mild interstitial pulmonary edema. Patchy retrocardiac opacities probably atelectasis. 06/17: Patient was successfully extubated yesterday. Repeat chest x-ray reveals correlate for interstitial edema, pneumonia, difficult to exclude small effusions. He is scheduled for hemodialysis tomorrow. He currently denies having any shortness of breath. He is complaining of significant chest wall pain from CPR. Will add an IV and oral pain medications for options. He remains on norepinephrine. He has been afebrile, heart rate 75, blood pressure 121/48, pulse ox 99% on room air. Repeat blood work reveals WBC 10.6, hemoglobin 1.8. Platelet count 144. Sodium 133, potassium 5.0, chloride 99, CO2 25, BUN 45 creatinine 6.79. Total bilirubin 1.4, AST 484, ALT 498, alkaline phosphatase 106. TSH 1.02. Cortisol level 18. Patient remains on insulin drip. 06/18: Patient remains in the intensive care unit on levo fed and insulin drip. He is scheduled for hemodialysis today. Patient denies any new complaints today. He does have chest pain from CPR. Mild shortness of breath. He has been afebrile, heart rate 70, blood pressure 111/48, pulse ox 96% on 4 L nasal cannula. Repeat blood work reveals WBC of 8.5, hemoglobin 11.7, platelet count 123. Sodium 133, potassium 4.93 creatinine 7.99. Blood sugars running between 126 and 140. Total bilirubin 1.5, AST 271, ALT 438. Troponin 19.9. 06/19: Patient remains in intensive care continues on levo fed and insulin drip. Patient had dialysis yesterday. He is currently sitting up in the chair with no new complaints. Patient has been afebrile, heart rate 78, blood pressure 102/57 on vasopressors, pulse oxing 97% on 4 L nasal cannula. The CBC 7.1, hemoglobin 11.5, potassium 4.6, creatinine 46, BUN 9. 06/20: Patient remains in the intensive care unit he is currently off any vasopressors. Continues with insulin drip until it can be converted to his insulin pump. Patient will have dialysis on Sunday. He is sitting up in bed without any new complaints or concerns. Patient is still having some chest discomfort related to the rib fracture due to CPR. Patient will be transferred to a [facility] today for possible discharge tomorrow if he is doing well. W BC 7.1, hemoglobin 10.7, potassium 5.0, BUN is 60 creatinine 7.96. 06/21: Patient remains in intensive care unit. He denies any new complaints. No chest pain or shortness of breath. He is scheduled for hemodialysis this morning. Repeat chest x-ray reveals stable pleural regimen changes correlate for pneumonia. Underlying heart failure not excluded. Repeat limited echocardiogram reveals EF of 25-30%. No pericardial effusion. Due to bed avail ability issues patient is going to be transferred to [facility] floor with telemetry. Regarding patient's insulin pump. He states that he needs his 's help in order to start this. We will plan to put him on Levemir and scale for now. He has been afebrile, heart rate 74, blood pressure 146/64, p ulse ox 93% on room air. Hemoglobin 11.2, platelet count 154. Sodium 132, potassium 5.4, creatinine 9.16. Blood sugars are running in the 120s to 140s. Total bilirubin 0.7, AST 57, ALT 270, alkaline phosphatase 80. Alberts catheter to be removed today. REVIEW OF SYSTEMS Constitutional: No fever, no chills, no night sweats. No weight change. No weakness, fatigue or lethargy. No daytime sleepiness. EENT: No headache. No blurred vision or double vision, no loss of vision. No loss of Hearing, no ringing in the ears, no dizziness. No nasal drainage or congestion. No epistaxis. No sore throat. Lungs: No shortness of breath, cough, no sputum production. No wheezing. Cardiovascular: Denies chest pain, no lower extremity edema. No palpitations. No paroxysmal nocturnal dyspnea. No orthopnea. No lightheadedness or dizziness. No syncopal episodes. Abdominal: No abdominal pain. No nausea, vomiting. No diarrhea. No constipation. No bloody or tarry stools.. No loss of appetite. Genitourinary: No dysuria, increased frequency, urgency. No urinary retention. Musculoskeletal: No myalgias. No muscle weakness, no gait dysfunction, no frequent falls. No back pain. No neck pain. Integumentary: No wounds, no lesions. No rash or pruritus. No unusual bruising. No change in hair or nails. Neurologic: No aphasia. No facial droop. No change in mentation. No head injury. No headache. No paralysis. No paresthesia. Psychiatric: No depression. No anxiety. No mood swings. Endocrine: No abnormal blood sugars. No weight change. No excessive sweating or thirst. No cold intolerance. PHYSICAL EXAMINATION General Appearance: Alert, cooperative, no distress, appears stated age. Neck HEENT: Supple, no lymphadenopathy Lungs: Crackles in the bilateral bases more so on the left Chest Wall: Chest wall normal expansion with deep inspiration and no deformity was found on exam. Heart: Regular rate and rhythm, S1, S2 normal, no murmur, rub or gallop. Back: Symmetric, no curvature, ROM normal, no CVA tenderness. Abdomen: Soft, non-tender, bowel sounds active all four quadrants, no masses, no organomegaly. Alberts with small amount of urine. Extremities: Extremities normal, atraumatic, no cyanosis or edema. Fistula graft in the left forearm. Pulses: 2+ and symmetric. Skin: Skin color, texture, tugor normal, no rashes or lesions. Neurologic: Patient is awake alert and oriented 3. No neuro deficits noted. ASSESSMENT AND PLAN 1 acute coronary syndrome, acute non-ST elevated myocardial infarction. Status post heart catheterization and stent of the RCA. Repeat Echocardiogram as above. Continue aspirin 81 mg daily, Lipitor 80 mg daily, Plavix 75 mg daily, continue Ranexa 1000 mg daily. 2 cardiopulmonary arrest with cardiogenic shock. Norepinephrine DC'd. Patient is hemodynamically stable. 3 acute hypoxic respiratory failure secondary to cardiopulmonary arrest requiring intubation, successfully extubated. Patient followed by pulmonary medicine. 4 chest pain secondary to CPR. Low-dose Dilaudid, Hooker and Tylenol added as needed for pain. 5 End-stage renal disease on hemodialysis 3 times a week which will be continued for now. Patient will have hemodialysis today 4 Hypertension, previously hypotensive currently off vasopressor 5 Type 2 diabetes uncontrolled with hyperglycemia. Patient on insulin drip. Patient may be transitioned to Levemir tonight along with NovoLog scale, discontinue insulin drip. 6 advance cardiomyopathy. 7 Post aortic valve placement. 8 frequent PVCs continue Ranexa. 9 hyperlipidemia: Remain on atorvastatin. 10 hypothyroidism. Continue levothyroxine 50 g daily. 11 BPH: Watch for any urinary retention. Alberts catheter in place. 12 chronic edema: Continue diuretics. 13 GI prophylaxis: Patient will be on Pepcid. 14 DVT prophylaxis: Continue anticoagulation for now. 15 chronic thrombocytopenia. 16 elevated liver function tests secondary to shock liver. 17. Anemia of chronic kidney disease. CODE STATUS: Full code. DISCHARGE PLAN Home Impression and plan of care have been directed as dictated by the signing physician. Tomasa Atkins nurse practitioner acting as scribe for signing physici an. Objective - Vital Signs Vital signs: Vital Signs Temp 97.8 F 06/21/20 00:00 Pulse 70 06/21/20 08:25 Resp 16 06/21/20 07:00 BP 99/53 06/20/20 22:00 Pulse Ox 99 06/21/20 07:00 Intake & Output 06/20/20 06/21/20 06/21/20 18:59 06:59 18:59 Intake Total 450.166 232.807 23.333 Output Total 70 20 10 Balance 380.166 212.807 13.333 Weight 111.8 kg Intake: IV 143 180 15 0.9NS 110 120 10 Pressure Bags 33 60 5 Intake, IV Titration 57.166 52.807 8.333 Amount Insulin Regular 100 unit 57.166 52.807 8.333 In Sodium Chloride 0.9% 100 ml @ Per Protocol IV .Q0M [facility] Rx#:[id number] Oral 250 Output: Urine 70 20 10 Other: Voiding Method Indwelling Catheter Indwelling Catheter ABP, PAP, CO, CI - Last Documented Arterial Blood Pressure 133/59 - Labs CBC & Chem 7: 06/21/20 04:20 06/21/20 04:20 Labs: Abnormal Lab Results - Last 24 Hours (Table) 06/20/20 06/20/20 06/20/20 Range/Units 10:12 11:46 14:00 RBC (4.30-5.90) m/uL Hgb (13.0-17.5) gm/dL Hct (39.0-53.0) % RDW (11.5-15.5) % Neutrophils # (1.3-7.7) k/uL Lymphocytes # (1.0-4.8) k/uL Sodium (137-145) mmol/L Potassium (3.5-5.1) mmol/L BUN (9-20) mg/dL Creatinine (0.66-1.25) mg/dL Glucose (74-99) mg/dL POC Glucose (mg/dL) 165 H 200 H 199 H (75-99) mg/dL Calcium (8.4-10.2) mg/dL ALT (4-49) U/L Total Protein (6.3-8.2) g/dL Albumin (3.5-5.0) g/dL 06/20/20 06/20/20 06/20/20 Range/Units 15:46 17:44 20:48 RBC (4.30-5.90) m/uL Hgb (13.0-17.5) gm/dL Hct (39.0-53.0) % RDW (11.5-15.5) % Neutrophils # (1.3-7.7) k/uL Lymphocytes # (1.0-4.8) k/uL Sodium (137-145) mmol/L Potassium (3.5-5.1) mmol/L BUN (9-20) mg/dL Creatinine (0.66-1.25) mg/dL Glucose (74-99) mg/dL POC Glucose (mg/dL) 225 H 189 H 198 H (75-99) mg/dL Calcium (8.4-10.2) mg/dL ALT (4-49) U/L Total Protein (6.3-8.2) g/dL Albumin (3.5-5.0) g/dL 06/20/20 06/21/20 06/21/20 Range/Units 22:12 00:41 02:33 RBC (4.30-5.90) m/uL Hgb (13.0-17.5) gm/dL Hct (39.0-53.0) % RDW (11.5-15.5) % Neutrophils # (1.3-7.7) k/uL Lymphocytes # (1.0-4.8) k/uL Sodium (137-145) mmol/L Potassium (3.5-5.1) mmol/L BUN (9-20) mg/dL Creatinine (0.66-1.25) mg/dL Glucose (74-99) mg/dL POC Glucose (mg/dL) 206 H 174 H 161 H (75-99) mg/dL Calcium (8.4-10.2) mg/dL ALT (4-49) U/L Total Protein (6.3-8.2) g/dL Albumin (3.5-5.0) g/dL 06/21/20 06/21/20 06/21/20 Range/Units 04:20 04:20 04:21 RBC 3.62 L (4.30-5.90) m/uL Hgb 11.2 L (13.0-17.5) gm/dL Hct 35.9 L (39.0-53.0) % RDW 16.2 H (11.5-15.5) % Neutrophils # 8.6 H (1.3-7.7) k/uL Lymphocytes # 0.4 L (1.0-4.8) k/uL Sodium 132 L (137-145) mmol/L Potassium 5.4 H (3.5-5.1) mmol/L BUN 75 H (9-20) mg/dL Creatinine 9.17 H* (0.66-1.25) mg/dL Glucose 141 H (74-99) mg/dL POC Glucose (mg/dL) 143 H (75-99) mg/dL Calcium 7.9 L (8.4-10.2) mg/dL ALT 270 H (4-49) U/L Total Protein 5.5 L (6.3-8.2) g/dL Albumin 2.9 L (3.5-5.0) g/dL 06/21/20 Range/Units 06:28 RBC (4.30-5.90) m/uL Hgb (13.0-17.5) gm/dL Hct (39.0-53.0) % RDW (11.5-15.5) % Neutrophils # (1.3-7.7) k/uL Lymphocytes # (1.0-4.8) k/uL Sodium (137-145) mmol/L Potassium (3.5-5.1) mmol/L BUN (9-20) mg/dL Creatinine (0.66-1.25) mg/dL Glucose (74-99) mg/dL POC Glucose (mg/dL) 145 H (75-99) mg/dL Calcium (8.4-10.2) mg/dL ALT (4-49) U/L Total Protein (6.3-8.2) g/dL Albumin (3.5-5.0) g/dL
--- NOTE | 2020-06-21 13:43 | P.PN ---
Subjective Patient is seen in follow-up for end-stage renal disease. He is maintained on hemodialysis on Sunday schedule. Patient had a cardiopulmonary arrest with 12 minute downtime this admission. He is currently awake and alert. He is very eager to go home. Admits to pain in his chest but attributes it to the CPR. No shortness of breath. Tolerated dialysis well this morning. Vital signs are stable. General: The patient appeared well nourished and normally developed. HEENT: Head exam is unremarkable. Neck is without jugular venous distension. LUNGS: Breath sounds decreased. HEART: Rate and Rhythm are regular. ABDOMEN: Soft, nontender. EXTREMITITES: 1+ edema. Objective - Vital Signs Vital signs: Vital Signs Temp 97.0 F L 06/21/20 08:00 Pulse 74 06/21/20 12:02 Resp 20 06/21/20 11:00 BP 99/53 06/20/20 22:00 Pulse Ox 94 L 06/21/20 11:00 Intake & Output 06/20/20 06/21/20 06/21/20 18:59 06:59 18:59 Intake Total 450.166 232.807 86.457 Output Total 70 20 10 Balance 380.166 212.807 76.457 Weight 111.8 kg Intake: IV 143 180 63 0.9NS 110 120 40 Pressure Bags 33 60 23 Intake, IV Titration 57.166 52.807 23.457 Amount Insulin Regular 100 unit 57.166 52.807 23.457 In Sodium Chloride 0.9% 100 ml @ Per Protocol IV .Q0M [facility] Rx#:[id number] Oral 250 Output: Urine 70 20 10 Other: Voiding Method Indwelling Catheter Indwelling Catheter Indwelling Catheter # Voids 0 ABP, PAP, CO, CI - Last Documented Arterial Blood Pressure 120/54 - Labs CBC & Chem 7: 06/21/20 04:20 06/21/20 04:20 Labs: Abnormal Lab Results - Last 24 Hours (Table) 06/20/20 06/20/20 06/20/20 Range/Units 14:00 15:46 17:44 RBC (4.30-5.90) m/uL Hgb (13.0-17.5) gm/dL Hct (39.0-53.0) % RDW (11.5-15.5) % Neutrophils # (1.3-7.7) k/uL Lymphocytes # (1.0-4.8) k/uL Sodium (137-145) mmol/L Potassium (3.5-5.1) mmol/L BUN (9-20) mg/dL Creatinine (0.66-1.25) mg/dL Glucose (74-99) mg/dL POC Glucose (mg/dL) 199 H 225 H 189 H (75-99) mg/dL Calcium (8.4-10.2) mg/dL ALT (4-49) U/L Total Protein (6.3-8.2) g/dL Albumin (3.5-5.0) g/dL 06/20/20 06/20/20 06/21/20 Range/Units 20:48 22:12 00:41 RBC (4.30-5.90) m/uL Hgb (13.0-17.5) gm/dL Hct (39.0-53.0) % RDW (11.5-15.5) % Neutrophils # (1.3-7.7) k/uL Lymphocytes # (1.0-4.8) k/uL Sodium (137-145) mmol/L Potassium (3.5-5.1) mmol/L BUN (9-20) mg/dL Creatinine (0.66-1.25) mg/dL Glucose (74-99) mg/dL POC Glucose (mg/dL) 198 H 206 H 174 H (75-99) mg/dL Calcium (8.4-10.2) mg/dL ALT (4-49) U/L Total Protein (6.3-8.2) g/dL Albumin (3.5-5.0) g/dL 06/21/20 06/21/20 06/21/20 Range/Units 02:33 04:20 04:20 RBC 3.62 L (4.30-5.90) m/uL Hgb 11.2 L (13.0-17.5) gm/dL Hct 35.9 L (39.0-53.0) % RDW 16.2 H (11.5-15.5) % Neutrophils # 8.6 H (1.3-7.7) k/uL Lymphocytes # 0.4 L (1.0-4.8) k/uL Sodium 132 L (137-145) mmol/L Potassium 5.4 H (3.5-5.1) mmol/L BUN 75 H (9-20) mg/dL Creatinine 9.17 H* (0.66-1.25) mg/dL Glucose 141 H (74-99) mg/dL POC Glucose (mg/dL) 161 H (75-99) mg/dL Calcium 7.9 L (8.4-10.2) mg/dL ALT 270 H (4-49) U/L Total Protein 5.5 L (6.3-8.2) g/dL Albumin 2.9 L (3.5-5.0) g/dL 06/21/20 06/21/20 06/21/20 Range/Units 04:21 06:28 09:02 RBC (4.30-5.90) m/uL Hgb (13.0-17.5) gm/dL Hct (39.0-53.0) % RDW (11.5-15.5) % Neutrophils # (1.3-7.7) k/uL Lymphocytes # (1.0-4.8) k/uL Sodium (137-145) mmol/L Potassium (3.5-5.1) mmol/L BUN (9-20) mg/dL Creatinine (0.66-1.25) mg/dL Glucose (74-99) mg/dL POC Glucose (mg/dL) 143 H 145 H 125 H (75-99) mg/dL Calcium (8.4-10.2) mg/dL ALT (4-49) U/L Total Protein (6.3-8.2) g/dL Albumin (3.5-5.0) g/dL 06/21/20 06/21/20 Range/Units 09:55 12:12 RBC (4.30-5.90) m/uL Hgb (13.0-17.5) gm/dL Hct (39.0-53.0) % RDW (11.5-15.5) % Neutrophils # (1.3-7.7) k/uL Lymphocytes # (1.0-4.8) k/uL Sodium (137-145) mmol/L Potassium (3.5-5.1) mmol/L BUN (9-20) mg/dL Creatinine (0.66-1.25) mg/dL Glucose (74-99) mg/dL POC Glucose (mg/dL) 141 H 133 H (75-99) mg/dL Calcium (8.4-10.2) mg/dL ALT (4-49) U/L Total Protein (6.3-8.2) g/dL Albumin (3.5-5.0) g/dL Assessment and Plan Plan: Assessment: 1. End-stage renal disease maintained on hemodialysis on Sunday schedule. 2. Acute coronary syndrome status post right coronary artery stenting. 3. Status post cardiopulmonary arrest. 4. Systolic CHF with ejection fraction of 25-30%. 5. Hyponatremia secondary to chronic kidney disease. Hypervolemic. 6. Volume overload. 7. Chronic kidney disease mineral bone disease maintained on Renvela. Plan: Extra hemodialysis treatment tomorrow mostly for ultrafiltration. Patient agreeable. He will be transferred out of the intensive care unit today.
[2020-06-21 14:30] LABS: Glucose,Whole Blood 184 mg/dL (75-99)
--- NOTE | 2020-06-21 16:54 | P.PN ---
Subjective Progress Note Date: 06/21/20 This is a 65-year-old male patient with incisional disease and the patient is on hemodialysis 3 times a week MW. The patient also is known to have multiple comorbidities and he has undergone previous aortic valve replacement and coronary artery bypass surgery 2. The patient is diabetic and diabetic ne uropathies among these complications in addition to that the patient has hypertension and hyperlipidemia and chronic. The patient presented to the hospital because of chest pain diagnosed having an acute non-STEMI and the patient was taken to [facility] where stent was placed in RCA and the course was was complicated by cardiac arrest and the patient at 12 minutes downtime intubated placed on a mechanical ventilator and resuscitated and subsequently the patient was extubated. The patient was extubated on 06/16/2020 and the patient is down to 2 L of oxygen by nasal cannula. The patient has severe cardiomyopathy with an ejection fraction of 30-35%. The patient was being weaned off the pressors and the patient is currently off norepinephrine infusion. FiO2 has been titrated down to 2 L of oxygen by nasal cannula. He did also experience shock liver and the liver function test are all improving. Clinically, the patient is doing well. The patient is a specific complaints on today's evaluation. He remains on 2 L of oxygen by nasal cannula with a pulse is 97%. Note that the patient is having some skeletal chest wall pain as the patient received CPR for total of 12 minutes. He is receiving IV fluids with normal saline at the rate of 10 mL an hour. Insulin drip at 3 units an hour. No other significant events overnight. Heart rate is sinus at the rate of 75 beats per minute. Objective - Vital Signs Vital signs: Vital Signs Temp 97.0 F L 06/21/20 08:00 Pulse 74 06/21/20 12:02 Resp 20 06/21/20 11:00 BP 99/53 06/20/20 22:00 Pulse Ox 94 L 06/21/20 11:00 Intake & Output 06/20/20 06/21/20 06/21/20 18:59 06:59 18:59 Intake Total 450.166 232.807 91.717 Output Total 70 20 10 Balance 380.166 212.807 81.717 Weight 111.8 kg Intake: IV 143 180 63 0.9NS 110 120 40 Pressure Bags 33 60 23 Intake, IV Titration 57.166 52.807 28.717 Amount Insulin Regular 100 unit 57.166 52.807 28.717 In Sodium Chloride 0.9% 100 ml @ Per Protocol IV .Q0M [facility] Rx#:[id number] Oral 250 Output: Urine 70 20 10 Other: Voiding Method Indwelling Catheter Indwelling Catheter Indwelling Catheter # Voids 0 ABP, PAP, CO, CI - Last Documented Arterial Blood Pressure 120/54 - Exam GENERAL EXAM: Awake, alert, very pleasant 65-year-old gentleman, on 2 L nasal cannula,, comfortable in no apparent distress. HEAD: Normocephalic. EYES: Sluggish reaction of pupils, equal size. NOSE: Clear with pink turbinates. THROAT: Oral endotracheal and gastric tube secured in place. No erythema or exudates. NECK: No masses, no JVD. Left internal jugular triple-lumen catheter in place. CHEST: No chest wall deformity. LUNGS: Equal air entry with crackles in the bilateral posterior bases, right greater than left. CVS: S1 and S2 normal with no audible murmur, regular rhythm. ABDOMEN: No hepatosplenomegaly, normal bowel sounds, no guarding or rigidity. SPINE: No scoliosis or deformity SKIN: No rashes CENTRAL NERVOUS SYSTEM: No focal deficits. Tone is normal in all 4 extremities. EXTREMITIES: AV fistula in the right upper extremity. There is no peripheral edema. No clubbing, no cyanosis. Peripheral pulses are intact. - Labs CBC & Chem 7: 06/21/20 04:20 06/21/20 04:20 Labs: Abnormal Lab Results - Last 24 Hours (Table) 06/20/20 06/20/20 06/20/20 Range/Units 17:44 20:48 22:12 RBC (4.30-5.90) m/uL Hgb (13.0-17.5) gm/dL Hct (39.0-53.0) % RDW (11.5-15.5) % Neutrophils # (1.3-7.7) k/uL Lymphocytes # (1.0-4.8) k/uL Sodium (137-145) mmol/L Potassium (3.5-5.1) mmol/L BUN (9-20) mg/dL Creatinine (0.66-1.25) mg/dL Glucose (74-99) mg/dL POC Glucose (mg/dL) 189 H 198 H 206 H (75-99) mg/dL Calcium (8.4-10.2) mg/dL ALT (4-49) U/L Total Protein (6.3-8.2) g/dL Albumin (3.5-5.0) g/dL 06/21/20 06/21/20 06/21/20 Range/Units 00:41 02:33 04:20 RBC 3.62 L (4.30-5.90) m/uL Hgb 11.2 L (13.0-17.5) gm/dL Hct 35.9 L (39.0-53.0) % RDW 16.2 H (11.5-15.5) % Neutrophils # 8.6 H (1.3-7.7) k/uL Lymphocytes # 0.4 L (1.0-4.8) k/uL Sodium (137-145) mmol/L Potassium (3.5-5.1) mmol/L BUN (9-20) mg/dL Creatinine (0.66-1.25) mg/dL Glucose (74-99) mg/dL POC Glucose (mg/dL) 174 H 161 H (75-99) mg/dL Calcium (8.4-10.2) mg/dL ALT (4-49) U/L Total Protein (6.3-8.2) g/dL Albumin (3.5-5.0) g/dL 06/21/20 06/21/20 06/21/20 Range/Units 04:20 04:21 06:28 RBC (4.30-5.90) m/uL Hgb (13.0-17.5) gm/dL Hct (39.0-53.0) % RDW (11.5-15.5) % Neutrophils # (1.3-7.7) k/uL Lymphocytes # (1.0-4.8) k/uL Sodium 132 L (137-145) mmol/L Potassium 5.4 H (3.5-5.1) mmol/L BUN 75 H (9-20) mg/dL Creatinine 9.17 H* (0.66-1.25) mg/dL Glucose 141 H (74-99) mg/dL POC Glucose (mg/dL) 143 H 145 H (75-99) mg/dL Calcium 7.9 L (8.4-10.2) mg/dL ALT 270 H (4-49) U/L Total Protein 5.5 L (6.3-8.2) g/dL Albumin 2.9 L (3.5-5.0) g/dL 06/21/20 06/21/20 06/21/20 Range/Units 09:02 09:55 12:12 RBC (4.30-5.90) m/uL Hgb (13.0-17.5) gm/dL Hct (39.0-53.0) % RDW (11.5-15.5) % Neutrophils # (1.3-7.7) k/uL Lymphocytes # (1.0-4.8) k/uL Sodium (137-145) mmol/L Potassium (3.5-5.1) mmol/L BUN (9-20) mg/dL Creatinine (0.66-1.25) mg/dL Glucose (74-99) mg/dL POC Glucose (mg/dL) 125 H 141 H 133 H (75-99) mg/dL Calcium (8.4-10.2) mg/dL ALT (4-49) U/L Total Protein (6.3-8.2) g/dL Albumin (3.5-5.0) g/dL 06/21/20 Range/Units 14:24 RBC (4.30-5.90) m/uL Hgb (13.0-17.5) gm/dL Hct (39.0-53.0) % RDW (11.5-15.5) % Neutrophils # (1.3-7.7) k/uL Lymphocytes # (1.0-4.8) k/uL Sodium (137-145) mmol/L Potassium (3.5-5.1) mmol/L BUN (9-20) mg/dL Creatinine (0.66-1.25) mg/dL Glucose (74-99) mg/dL POC Glucose (mg/dL) 184 H (75-99) mg/dL Calcium (8.4-10.2) mg/dL ALT (4-49) U/L Total Protein (6.3-8.2) g/dL Albumin (3.5-5.0) g/dL Assessment and Plan Plan: 1 acute Non-ST segment elevation myocardial infarction, status post placement to the RCA, status post cardiopulmonary arrest 06/15/2020 2 Acute hypoxemic respiratory failure secondary to above requiring intubation mechanical ventilatory support, successfully extubated 06/16/2020 and currently on 2 L nasal cannula 3 Cardiogenic shock with secondary hypotension, shock, requiring pressor support, currently weaned off the norepinephrine 4 Severe ischemic cardiomyopathy with ejection fraction 30-35% 5 History of previous aortic valve replacement and coronary artery bypass grafting 2 6 Diabetes mellitus 7 Diabetic neuropathy 8 End-stage renal disease receiving dialysis Sunday 9 Hyperlipidemia 10 History of hypertension 11 Chronic anemia 12 Elevated liver enzymes in secondary to cardiogenic shock, improving Plan The patient is having some skeletal chest wall pain. The patient which is out of the intensive care unit. We'll discontinue the arterial line. We will also off on this patient's hemodialysis today. Blood work was reviewed. Potassium is at 5.4. Rest of the electrolytes are all within normal limits. The patient is not having any significant respiratory distress. The patient will be transferred to a medical surgical floor with telemetry.
[2020-06-21 17:41] LABS: Glucose,Whole Blood 294 mg/dL (75-99)
[2020-06-21] MEDS: INSULIN ASPART (NovoLOG) 100 UNIT/ML VIAL SQ SCH ×2 (17:44→21:27)
[2020-06-21 19:03] LABS: Glucose,Whole Blood 355 mg/dL (75-99)
--- NOTE | 2020-06-21 20:12 | XR ---
RESULT: HISTORY: rib pain TECHNIQUE: 4 views each of the bilateral ribs were obtained. COMPARISON: None. FINDINGS: There is no evidence of displaced rib fractures. The visualized lungs are grossly unremarkable. IMPRESSION: No evidence of displaced rib fracture.
[2020-06-21] MEDS ORDERED: INSULIN DETEMIR (LEVEMIR) 100 UNIT/ML SYR SQ SCH (21:00)
[2020-06-21 21:01] LABS: Glucose,Whole Blood 309 mg/dL (75-99)
[2020-06-22] MEDS: HYDROCORTISONE SUCCINATE 100 MG/2 ML VIAL IV SCH ×3 (00:34→17:01)
[2020-06-22 01:52] LABS: Glucose,Whole Blood 243 mg/dL (75-99)
[2020-06-22] MEDS: EPINEPHrine 1 MG/ML 1 ML AMP IV SCH ×2 (04:56→04:57)
[2020-06-22] MEDS: LEVOTHYROXINE 50 MCG TAB PO SCH (05:30)
[2020-06-22] MEDS: HYDROmorphone 0.5 MG/0.5 ML SYRINGE IVP PRN (05:33)
[2020-06-22] MEDS: IPRATROPIUM-ALBUTEROL 3 ML NEB INHALATION SCH ×3 (06:56→16:01)
[2020-06-22 07:30] LABS: Glucose,Whole Blood 189 mg/dL (75-99)
[2020-06-22] MEDS: ASPIRIN 81 MG PO SCH (07:46)
[2020-06-22] MEDS: CLOPIDOGREL 75 MG TAB PO SCH (07:46)
[2020-06-22] MEDS: ATORVASTATIN 80 MG TAB PO SCH (07:46)
[2020-06-22] MEDS: RANOLAZINE 500 MG TAB.ER.12H PO SCH (07:46)
[2020-06-22] MEDS: METOPROLOL TARTRATE 25 MG TAB PO SCH (07:46)
[2020-06-22] MEDS: INSULIN ASPART (NovoLOG) 100 UNIT/ML VIAL SQ SCH ×2 (07:48→13:11)
[2020-06-22] MEDS: FOLIC ACID-VIT B COMPLEX-VIT C 1 CAP PO SCH (08:35)
[2020-06-22] MEDS: SEVELAMER 800 MG TAB PO SCH ×2 (08:35→13:10)
--- NOTE | 2020-06-22 10:40 | P.DS ---
Providers Date of admission: 06/14/20 13:07 Expected date of discharge: 06/22/20 Attending physician: Travis Bains Consults: 06/14/20 12:39 Consult Physician Urgent Consulting Provider: Garry Morgan Consult Reason/Comments: chest pain, NSTEMI Do you want consulting provider notified?: Already Contacted 06/14/20 12:44 Consult Physician Urgent Consulting Provider: Marilou Crow Consult Reason/Comments: chronic renal failure, dialysis Do you want consulting provider notified?: Yes 06/15/20 18:35 Consult Physician Routine Consulting Provider: [facility] Consult Reason/Comments: Post Interventional patient Do you want consulting provider notified?: Already Contacted 06/15/20 18:57 Consult Physician Stat Consulting Provider: Lamine Umanzor Consult Reason/Comments: ICU management Do you want consulting provider notified?: Yes Primary care physician: Travis Bains [place] [facility] Course: HISTORY OF PRESENT ILLNESS 65-year-old male one of my office patient who seen cardiology regular basis known to have history of coronary disease post bypass surgery with MCDER[place]OTT to the [place] and [place] the graft on the left circumflex artery. Patient also with dialysis the times a week and has been doing well till few days earlier when he developed to have significant chest pain with exertion associated with significant shortness of breath ended up coming to the emergency department tested and cardiac enzymes were negative patient ended up being discharged home to see cardiology as an outpatient. Hardly finish dialysis today with patient developed to have significant midsternal chest point and along with nausea without vomiting and had significant lightheadedness. Patient ended up coming [facility] department at [facility] where was seen his CK was significantly elevated originally and the total was 2.70. Patient will be kept on heparin drip seeing cardiology and plan for heart catheter based on current symptoms. 06/15: Patient remains in the ER waiting for a cardiac stepdown bed. He has been seen by cardiology and continued on aspirin and heparin, lisinopril decreased. He is scheduled for heart catheterization this afternoon. He is also scheduled for hemodialysis tomorrow. Echocardiogram report is pending. Patient has been afebrile, heart rate 77, blood pressure 98/57, pulse ox 95% on 2 L nasal cannula. Troponins have been 2.62, 2.7, 2.69. 06/16: Yesterday, patient underwent heart catheterization and stent of the RCA with Dr. Cordero. Patient had returned to his room and around 6:30 he had a cardiopulmonary arrest. He initially was PEA and was given 4 A of epi, bicarb and shocked. He was intubated and transferred to the intensive care unit. Patient remains intubated and on mechanical ventilation with tidal volume 500, FiO2 40, PEEP of 5. He is currently on Nimbex and norepinephrine. We will plan to start insulin drip this morning. Echocardiogram reveals EF of 30-35% with severe concentric left hypertrophy. Repeat lab work reveals WBC 7.4, hemoglobin 11.5, platelet count 120. Sodium 134, potassium 5.4, BUN 15 creatinine 7.54. AST 604, ALT 418. He is followed by pulmonary medicine. Nephrology is planning for repeat hemodialysis today and he is tentatively scheduled for heart catheterization again today. Chest x-ray this morning reveals suggestive of heart failure and mild interstitial pulmonary edema. Patchy retrocardiac opacities probably atelectasis. 06/17: Patient was successfully extubated yesterday. Repeat chest x-ray reveals correlate for interstitial edema, pneumonia, difficult to exclude small effusions. He is scheduled for hemodialysis tomorrow. He currently denies having any shortness of breath. He is complaining of significant chest wall pain from CPR. Will add an IV and oral pain medications for options. He remains on norepinephrine. He has been afebrile, heart rate 75, blood pressure 121/48, pulse ox 99% on room air. Repeat blood work reveals WBC 10.6, hemoglobin 1.8. Platelet count 144. Sodium 133, potassium 5.0, chloride 99, CO2 25, BUN 45 creatinine 6.79. Total bilirubin 1.4, AST 484, ALT 498, alkaline phosphatase 106. TSH 1.02. Cortisol level 18. Patient remains on insulin drip. 06/18: Patient remains in the intensive care unit on levo fed and insulin drip. He is scheduled for hemodialysis today. Patient denies any new complaints today. He does have chest pain from CPR. Mild shortness of breath. He has been afebrile, heart rate 70, blood pressure 111/48, pulse ox 96% on 4 L nasal cannula. Repeat blood work reveals WBC of 8.5, hemoglobin 11.7, platelet count 123. Sodium 133, potassium 4.93 creatinine 7.99. Blood sugars running between 126 and 140. Total bilirubin 1.5, AST 271, ALT 438. Troponin 19.9. 06/19: Patient remains in intensive care continues on levo fed and insulin drip. Patient had dialysis yesterday. He is currently sitting up in the chair with no new complaints. Patient has been afebrile, heart rate 78, blood pressure 102/57 on vasopressors, pulse oxing 97% on 4 L nasal cannula. The CBC 7.1, hemoglobin 11.5, potassium 4.6, creatinine 46, BUN 9. 06/20: Patient remains in the intensive care unit he is currently off any vasopr essors. Continues with insulin drip until it can be converted to his insulin pump. Patient will have dialysis on Sunday. He is sitting up in bed without any new complaints or concerns. Patient is still having some chest discomfort related to the rib fracture due to CPR. Patient will be transferred to a [facility] today for possible discharge tomorrow if he is doing well. W BC 7.1, hemoglobin 10.7, potassium 5.0, BUN is 60 creatinine 7.96. 06/21: Patient remains in intensive care unit. He denies any new complaints. No chest pain or shortness of breath. He is scheduled for hemodialysis this morning. Repeat chest x-ray reveals stable pleural regimen changes correlate for pneumonia. Underlying heart failure not excluded. Repeat limited echocardiogram reveals EF of 25-30%. No pericardial effusion. Due to bed availability issues patient is going to be transferred to [facility] floor with telemetry. Regarding patient's insulin pump. He states that he needs his 's help in order to start this. We will plan to put him on Levemir and scale for now. He has been afebrile, heart rate 74, blood pressure 146/64, pulse ox 93% on room air. Hemoglobin 11.2, platelet count 154. Sodium 132, potassium 5.4, creatinine 9.16. Blood sugars are running in the 120s to 140s. Total bilirubin 0.7, AST 57, ALT 270, alkaline phosphatase 80. Alberts catheter to be removed today. 06/22: Rib x-rays showed no evidence of displaced rib fracture. He is scheduled for extra dialysis treatment today for ultrafiltration. He is seen today on the [facility] floor. He is very anxious to go home. Yesterday, he was transitioned off insulin drip to scale only. He will plan to resume his insulin pump at home. He has been also on IV Solu-Cortef which will be transitioned to oral. Patient has been afebrile, heart rate 86, blood pressure 110/66, pulse ox 94% on room air. Patient will be discharged home today in stable condition. ASSESSMENT AND PLAN 1 acute coronary syndrome, acute non-ST elevated myocardial infarction. Status post heart catheterization and stent of the RCA. 2 cardiopulmonary arrest with cardiogenic shock. 3 acute hypoxic respiratory failure secondary to cardiopulmonary arrest requiring intubation, successfully extubated. 4 chest pain secondary to CPR. 5 End-stage renal disease on hemodialysis 3 times a week. 6 Hypertension. 7 Type 2 diabetes uncontrolled with hyperglycemia. 8 advance cardiomyopathy with chronic systolic heart failure. 9 Post aortic valve placement. 10 frequent PVCs 11 hyperlipidemia 12 hypothyroidism. 13 BPH 14 chronic edema 15 chronic thrombocytopenia. 16 elevated liver function tests secondary to shock liver. 17. Anemia of chronic kidney disease. DISCHARGE PLAN Home Impression and plan of care have been directed as dictated by the signing physician. Tomasa Atkins nurse practitioner acting as scribe for signing physician. Patient Condition at Discharge: Good Plan - Discharge Summary Discharge Rx Participant: No New Discharge Prescriptions: New Atorvastatin [Lipitor] 80 mg PO DAILY #30 tab Metoprolol Tartrate [Lopressor] 25 mg PO BID #60 tab Nitroglycerin Sl Tabs [Nitrostat] 0.4 mg SUBLINGUAL Q5M PRN #25 tab PRN Reason: Chest Pain Midodrine [ProAmatine] 5 mg PO TID #90 tablet Hydrocortisone [Cortef] 20 mg PO BID #14 tablet Continue lisinopriL [Zestril] 10 mg PO DAILY INSULIN LISPRO (For Pump) [humaLOG (For Pump)] See Protocol SQ-PUMP CONTINUOUS Ranolazine [Ranexa] 1,000 mg PO DAILY Isosorbide Mononitrate ER [Imdur] 60 mg PO DAILY Dialyvite 1 tab PO DAILY Sevelamer [Renvela] 3,200 mg PO AC-TID #100 tab Clopidogrel [Plavix] 75 mg PO DAILY Sevelamer [Renvela] 2,400 mg PO DAILY PRN PRN Reason: before snacks Levothyroxine Sodium [Synthroid] 50 mcg PO DAILY Furosemide [Lasix] 40 mg PO DAILY Discontinued Carvedilol [Coreg] 12.5 mg PO MOWEFR@0300 Carvedilol [Coreg] 25 mg PO MOWEFR@1000 Carvedilol [Coreg] 25 mg PO SUTUTHSA Atorvastatin Calcium [Lipitor] 20 mg PO DAILY Discharge Medication List INSULIN LISPRO (For Pump) [humaLOG (For Pump)] See Protocol SQ-PUMP CONTINUOUS 03/30/17 [History] Ranolazine [Ranexa] 1,000 mg PO DAILY 03/30/17 [History] lisinopriL [Zestril] 10 mg PO DAILY 03/30/17 [History] Isosorbide Mononitrate ER [Imdur] 60 mg PO DAILY 04/11/17 [History] Dialyvite 1 tab PO DAILY 10/09/17 [History] Sevelamer [Renvela] 3,200 mg PO AC-TID #100 tab 03/06/18 [Rx] Clopidogrel [Plavix] 75 mg PO DAILY 09/27/18 [History] Sevelamer [Renvela] 2,400 mg PO DAILY PRN 10/10/18 [History] Furosemide [Lasix] 40 mg PO DAILY 06/11/20 [History] Levothyroxine Sodium [Synthroid] 50 mcg PO DAILY 06/11/20 [History] Atorvastatin [Lipitor] 80 mg PO DAILY #30 tab 06/22/20 [Rx] Hydrocortisone [Cortef] 20 mg PO BID #14 tablet 06/22/20 [Rx] Metoprolol Tartrate [Lopressor] 25 mg PO BID #60 tab 06/22/20 [Rx] Midodrine [ProAmatine] 5 mg PO TID #90 tablet 06/22/20 [Rx] Nitroglycerin Sl Tabs [Nitrostat] 0.4 mg SUBLINGUAL Q5M PRN #25 tab 06/22/20 [Rx] Follow up Appointment(s)/Referral(s): Gio Cordero MD [STAFF PHYSICIAN] - 06/30/20 1:45 pm (The office will call you and let you know if Dr. Cordero still wants an echo done tommorow if they cannot reach you they said they will leave a voicemail.) Travis Bains MD [Primary Care Provider] - 1 Week (Office is at lunch at the time I tried making this appointment if patient leaves before one please have them call and make their appointment.) Patient Instructions/Handouts: Heart Attack (DC) Discharge Disposition: HOME SELF-CARE
[2020-06-22 11:38] LABS: Glucose,Whole Blood 134 mg/dL (75-99)
--- NOTE | 2020-06-22 12:29 | P.PN ---
Subjective Patient is seen in follow-up for end-stage renal disease. He is maintained on hemodialysis on Sunday schedule. Patient had a cardiopulmonary arrest with 12 minute downtime this admission. He is currently awake and alert. He is very eager to go home. Admits to pain in his chest but attributes it to the CPR. No shortness of breath. No changes overnight. No active complaints. Vital signs are stable. General: The patient appeared well nourished and normally developed. HEENT: Head exam is unremarkable. Neck is without jugular venous distension. LUNGS: Breath sounds decreased. HEART: Rate and Rhythm are regular. ABDOMEN: Soft, nontender. EXTREMITITES: 1+ edema. Objective - Vital Signs Vital signs: Vital Signs Temp 97.7 F 06/22/20 07:00 Pulse 72 06/22/20 11:30 Resp 16 06/22/20 11:30 BP 110/66 06/22/20 07:00 Pulse Ox 94 L 06/22/20 07:00 Intake & Output 06/21/20 06/22/20 06/22/20 18:59 06:59 18:59 Intake Total 91.717 Output Total 10 3000 Balance 81.717 -3000 Intake: IV 63 0.9NS 40 Pressure Bags 23 Intake, IV Titration 28.717 Amount Insulin Regular 100 unit 28.717 In Sodium Chloride 0.9% 100 ml @ Per Protocol IV .Q0M [facility] Rx#:[id number] Output: Urine 10 Hemodialysis 3000 Other: Voiding Method Indwelling Catheter Indwelling Catheter # Voids 0 1 # Bowel Movements 1 ABP, PAP, CO, CI - Last Documented Arterial Blood Pressure 120/54 - Labs CBC & Chem 7: 06/21/20 04:20 06/21/20 04:20 Labs: Abnormal Lab Results - Last 24 Hours (Table) 06/21/20 06/21/20 06/21/20 Range/Units 14:24 17:39 19:02 POC Glucose (mg/dL) 184 H 294 H 355 H (75-99) mg/dL 06/21/20 06/22/20 06/22/20 Range/Units 20:59 01:51 07:29 POC Glucose (mg/dL) 309 H 243 H 189 H (75-99) mg/dL 06/22/20 Range/Units 11:35 POC Glucose (mg/dL) 134 H (75-99) mg/dL Assessment and Plan Plan: Assessment: 1. End-stage renal disease maintained on hemodialysis on Sunday schedule. 2. Acute coronary syndrome status post right coronary artery stenting. 3. Status post cardiopulmonary arrest. 4. Systolic CHF with ejection fraction of 25-30%. 5. Hyponatremia secondary to chronic kidney disease. Hypervolemic. 6. Volume overload. 7. Chronic kidney disease mineral bone disease maintained on Renvela. Plan: Short hemodialysis treatment today mostly for ultrafiltration. Stable for discharge from nephrology standpoint after dialysis today.
--- NOTE | 2020-06-22 16:16 | P.PN ---
Subjective Progress Note Date: 06/22/20 This is a 65-year-old male patient with incisional disease and the patient is on hemodialysis 3 times a week MW. The patient also is known to have multiple comorbidities and he has undergone previous aortic valve replacement and coronary artery bypass surgery 2. The patient is diabetic and diabetic n europathies among these complications in addition to that the patient has hypertension and hyperlipidemia and chronic. The patient presented to the hospital because of chest pain diagnosed having an acute non-STEMI and the patient was taken to [facility] where stent was placed in RCA and the course was was complicated by cardiac arrest and the patient at 12 minutes downtime intubated placed on a mechanical ventilator and resuscitated and subsequently the patient was extubated. The patient was extubated on 06/16/2020 and the patient is down to 2 L of oxygen by nasal cannula. The patient has severe cardiomyopathy with an ejection fraction of 30-35%. The patient was being weaned off the pressors and the patient is currently off norepinephrine infusion. FiO2 has been titrated down to 2 L of oxygen by nasal cannula. He did also experience shock liver and the liver function test are all improving. Clinically, the patient is doing well. The patient is a specific complaints on today's evaluation. He remains on 2 L of oxygen by nasal cannula with a pulse is 97%. Note that the patient is having some skeletal chest wall pain as the patient received CPR for total of 12 minutes. He is receiving IV fluids with normal saline at the rate of 10 mL an hour. Insulin drip at 3 units an hour. No other significant events overnight. Heart rate is sinus at the rate of 75 beats per minute. On 06/22/2020, the patient is doing well. The patient has no specific complaints. The patient is undergoing hemodialysis and the patient will be like to discharged home today. He continues to have some soreness across his chest related to previous CPR and this is skeletal chest wall pain. No nausea. No vomiting. No emesis. No angina. No fever chills or night sweats. No respiratory distress and the patient is currently on room air oxygen. The patient is on no pressors at this point in time. Objective - Vital Signs Vital signs: Vital Signs Temp 97.7 F 06/22/20 07:00 Pulse 68 06/22/20 16:03 Resp 16 06/22/20 11:30 BP 110/66 06/22/20 07:00 Pulse Ox 94 L 06/22/20 07:00 Intake & Output 06/21/20 06/22/20 06/22/20 18:59 06:59 18:59 Intake Total 91.717 Output Total 10 3000 Balance 81.717 -3000 Intake: IV 63 0.9NS 40 Pressure Bags 23 Intake, IV Titration 28.717 Amount Insulin Regular 100 unit 28.717 In Sodium Chloride 0.9% 100 ml @ Per Protocol IV .Q0M [facility] Rx#:[id number] Output: Urine 10 Hemodialysis 3000 Other: Voiding Method Indwelling Catheter Indwelling Catheter # Voids 0 1 # Bowel Movements 1 ABP, PAP, CO, CI - Last Documented Arterial Blood Pressure 120/54 - Exam GENERAL EXAM: Awake, alert, very pleasant 65-year-old gentleman, on 2 L nasal cannula,, comfortable in no apparent distress. HEAD: Normocephalic. EYES: Sluggish reaction of pupils, equal size. NOSE: Clear with pink turbinates. THROAT: Oral endotracheal and gastric tube secured in place. No erythema or exudates. NECK: No masses, no JVD. Left internal jugular triple-lumen catheter in place. CHEST: No chest wall deformity. LUNGS: Equal air entry with crackles in the bilateral posterior bases, right greater than left. CVS: S1 and S2 normal with no audible murmur, regular rhythm. ABDOMEN: No hepatosplenomegaly, normal bowel sounds, no guarding or rigidity. SPINE: No scoliosis or deformity SKIN: No rashes CENTRAL NERVOUS SYSTEM: No focal deficits. Tone is normal in all 4 extremities. EXTREMITIES: AV fistula in the right upper extremity. There is no peripheral edema. No clubbing, no cyanosis. Peripheral pulses are intact. - Labs CBC & Chem 7: 06/21/20 04:20 06/21/20 04:20 Labs: Abnormal Lab Results - Last 24 Hours (Table) 06/21/20 06/21/20 06/21/20 Range/Units 17:39 19:02 20:59 POC Glucose (mg/dL) 294 H 355 H 309 H (75-99) mg/dL 06/22/20 06/22/20 06/22/20 Range/Units 01:51 07:29 11:35 POC Glucose (mg/dL) 243 H 189 H 134 H (75-99) mg/dL Assessment and Plan Plan: 1 acute Non-ST segment elevation myocardial infarction, status post placement to the RCA, status post cardiopulmonary arrest 06/15/2020, the patient is free of any chest pain for now. He is experiencing only skeletal chest wall pain related to previous CPR. 2 Acute hypoxemic respiratory failure secondary to above requiring intubation mechanical ventilatory support, successfully extubated 06/16/2020 and currently on 2 L nasal cannula 3 Cardiogenic shock with secondary hypotension, shock, requiring pressor suppor t, currently weaned off the norepinephrine 4 Severe ischemic cardiomyopathy with ejection fraction 30-35% 5 History of previous aortic valve replacement and coronary artery bypass grafting 2 6 Diabetes mellitus 7 Diabetic neuropathy 8 End-stage renal disease receiving dialysis Sunday 9 Hyperlipidemia 10 History of hypertension 11 Chronic anemia , stable hemoglobin 11.2 12 Elevated liver enzymes in secondary to cardiogenic shock, and LFTs continued to improve. Plan No active pulmonary issues Complete the hemodialysis today Discharge the patient home following dialysis with his cardiac medications including aspirin and Plavix and metoprolol. Continue high-dose statins Continue Synthroid Discontinued the hydrocortisone. Clear for discharge from a pulmonary standpoint.
[2020-06-23 11:43] VITALS: BP 109/61; PULSE 63; RESP 18; TEMP 98
== END 2020-06-22 18:22 | disposition home or self-care (01) | DRG 246 ==
LOC: EC 11:10 → 3SCARD 13:07 → 2SICU 06-15 19:47 → 5NMEDONC 06-21 13:52
PROVIDERS: ADMIT Internal Medicine Geriatric Medicine; ATTEND Internal Medicine Geriatric Medicine
PROC: 027034Z Dilation of Coronary Artery, One Artery with Drug-eluting Intraluminal Device, Percutaneous Approach (ICD-10-PCS; principal; 2020-06-15 09:00)
PROC: 4A023N8 Measurement of Cardiac Sampling and Pressure, Bilateral, Percutaneous Approach (ICD-10-PCS; principal; 2020-06-15 09:00)
PROC: B2131ZZ Fluoroscopy of Multiple Coronary Artery Bypass Grafts using Low Osmolar Contrast (ICD-10-PCS; principal; 2020-06-15 09:00)
PROC: B2111ZZ Fluoroscopy of Multiple Coronary Arteries using Low Osmolar Contrast (ICD-10-PCS; principal; 2020-06-15 09:00)
PROC: 0BH17EZ Insertion of Endotracheal Airway into Trachea, Via Natural or Artificial Opening (ICD-10-PCS; 2020-06-16)
PROC: 5A1935Z Respiratory Ventilation, Less than 24 Consecutive Hours (ICD-10-PCS; 2020-06-16)
PROC: 5A12012 Performance of Cardiac Output, Single, Manual (ICD-10-PCS; 2020-06-16)
PROC: 03HY32Z Insertion of Monitoring Device into Upper Artery, Percutaneous Approach (ICD-10-PCS; 2020-06-16)
PROC: 02HV33Z Insertion of Infusion Device into Superior Vena Cava, Percutaneous Approach (ICD-10-PCS; 2020-06-16)
PROC: 4A133B1 Monitoring of Arterial Pressure, Peripheral, Percutaneous Approach (ICD-10-PCS; 2020-06-16)
PROC: 4A133J1 Monitoring of Arterial Pulse, Peripheral, Percutaneous Approach (ICD-10-PCS; 2020-06-16)
PROC: 5A09357 Assistance with Respiratory Ventilation, Less than 24 Consecutive Hours, Continuous Positive Airway Pressure (ICD-10-PCS; 2020-06-17)
PROC: 5A1D70Z Performance of Urinary Filtration, Intermittent, Less than 6 Hours Per Day (ICD-10-PCS; 2020-06-17)
PROC: 3E033XZ Introduction of Vasopressor into Peripheral Vein, Percutaneous Approach (ICD-10-PCS; 2020-06-18)
DX: I21.4 Non-ST elevation (NSTEMI) myocardial infarction (principal); N18.6 End stage renal disease; J96.01 Acute respiratory failure with hypoxia; R57.0 Cardiogenic shock; I46.2 Cardiac arrest due to underlying cardiac condition; K72.00 Acute and subacute hepatic failure without coma; I49.01 Ventricular fibrillation; I13.2 Hypertensive heart and chronic kidney disease with heart failure and with stage 5 chronic kidney disease, or end stage renal disease; J81.1 Chronic pulmonary edema; I47.1 Supraventricular tachycardia; J98.11 Atelectasis; E87.1 Hypo-osmolality and hyponatremia; I50.22 Chronic systolic (congestive) heart failure; E11.65 Type 2 diabetes mellitus with hyperglycemia; E11.22 Type 2 diabetes mellitus with diabetic chronic kidney disease; E11.42 Type 2 diabetes mellitus with diabetic polyneuropathy; R94.5 Abnormal results of liver function studies; I95.9 Hypotension, unspecified; D69.6 Thrombocytopenia, unspecified; I25.110 Atherosclerotic heart disease of native coronary artery with unstable angina pectoris; Z99.2 Dependence on renal dialysis; Z79.4 Long term (current) use of insulin; I25.5 Ischemic cardiomyopathy; D63.1 Anemia in chronic kidney disease; Y84.8 Other medical procedures as the cause of abnormal reaction of the patient, or of later complication, without mention of misadventure at the time of the procedure; E83.89 Other disorders of mineral metabolism; M89.8X9 Other specified disorders of bone, unspecified site; I49.3 Ventricular premature depolarization; E78.5 Hyperlipidemia, unspecified; E03.9 Hypothyroidism, unspecified; N40.0 Benign prostatic hyperplasia without lower urinary tract symptoms; M19.042 Primary osteoarthritis, left hand; M19.041 Primary osteoarthritis, right hand; I25.82 Chronic total occlusion of coronary artery; I25.2 Old myocardial infarction; Z95.1 Presence of aortocoronary bypass graft; Z96.41 Presence of insulin pump (external) (internal); Z95.3 Presence of xenogenic heart valve; Z95.5 Presence of coronary angioplasty implant and graft; Z96.1 Presence of intraocular lens; Z88.0 Allergy status to penicillin; Z79.899 Other long term (current) drug therapy; Z79.02 Long term (current) use of antithrombotics/antiplatelets; Z79.890 Hormone replacement therapy; Z87.891 Personal history of nicotine dependence; Z84.1 Family history of disorders of kidney and ureter; Z80.0 Family history of malignant neoplasm of digestive organs; Z79.01 Long term (current) use of anticoagulants; Z79.82 Long term (current) use of aspirin
CPT/HCPCS: 36415; 36600; 71045; 71046; 71110; 80053; 80061; 82533; 82805; 83036; 83605; 83690; 83735; 84100; 84132; 84443; 84484; 85025; 85049; 85347; 85610; 85730; 86707; 87350; 90935; 93005; 93306; 93308; 93455; 94002; 94003; 94640; 94660; 96361; 96365; 96366; 96375; 96376; 99285; 99291

== ENCOUNTER 2020-06-24 17:20 | Inpatient (IN) | payer MEDICARE, BC ==
--- NOTE | 2020-06-24 17:44 | ED ---
General Adult HPI - General Stated complaint: Poss STEMI Time Seen by Provider: 06/24/20 17:27 Source: EMS Mode of arrival: EMS Limitations: no limitations - History of Present Illness Initial comments: Dictation was produced using [employer] dictation software. please excuse any grammatical, word or spelling errors. This patient was cared for during a federal and state declared state of emergency secondary to Covid 19 Chief Complaint: 65-year-old male with history of coronary artery disease, coronary artery stent placement yesterday presents with chest pain History of Present Illness: Patient 65-year-old male he was at home when he began experiencing sharp chest pain. EMS was called. Patient is given nitroglycerin and aspirin. Patient allegedly had a coronary artery stent that was placed yesterday. According to patient and EMS he had cardiac arrest last week. Patient states he has sharp chest pain located to the right anterior chest. Patient states he does feel radiation of symptoms that his left upper extremity. Patient not feel any improvement of his symptoms after nitroglycerin. He had dialysis today. He had full 3 hours of dialysis without any palpitations. EMS was called by patient's . Denies any constitutional symptoms. Patient denies any dyspnea. Denies any pleurisy. The ROS documented in this emergency department record has been reviewed and confirmed by me. Those systems with pertinent positive or negative responses have been documented in the HPI. All other systems are other negative and/or noncontributory. PHYSICAL EXAM: General Impression: Alert and oriented x3, not in acute distress HEENT: Normocephalic atraumatic, extra-ocular movements intact, pupils equal and reactive to light bilaterally, mucous membranes moist. Cardiovascular: Heart regular rate and rhythm Chest: Able to complete full sentences, no retractions, no tachypnea Abdomen: abdomen soft, non-tender, non-distended, no organomegaly Musculoskeletal: Pulses present and equal in all extremities, no peripheral edema Motor: no focal deficits noted Neurological: CN II-XII grossly intact, no focal motor or sensory deficits noted Skin: Intact with no visualized rashes, dialysis access site to the right forearm Psych: Normal affect and mood ED course: 65-year-old male presents with atypical chest pain with typical features. Vital signs upon arrival are within acceptable limits. His EKG appears to be at baseline when compared to previous EKGs. His symptoms are atypical with typical features. He does appear well-appearing at bedside. Chart review was performed. Patient had coronary artery intervention performed 9 days ago. Reports shows that patient critical stenosis involving the right coronary artery that was stented. Patient was just discharged 2 days ago. 8 days ago patient had cardiac arrest while in the hospital. Laboratory evaluation obtained. CBC with a severe within acceptable limits. Coag panel is unremarkable. Metabolic panel seems to be acceptable for patient. Troponin elevated at 2.780. This patient be decreased from last week. CK-MB is 11.8. Chest x-ray shows evidence of CHF with improvement of right lower lobe infiltrate. Patient reevaluated bedside continues to have chest pain. Case was discussed with Dr. Rivera at approximately 6:25 PM who is information systems manager for cardiology. Plan is for patient go to the cardiac [facility]. [facility] was activated. Patient was started on heparin. Case discussed with Dr. Barnes who is willing to accept patients care for hospital admission. Clinical p resentation consistent with unstable angina however given patient's recent cath results there is concern that patient's having another coronary artery occlusive event. EKG interpretation: Ventricular rate 87, sinus rhythm, left bundle branch block, AL interval 260, QRS 154, QTC 495. No AL prolongation, no ST or T-wave changes noted. EKG compared to 02/27/2019 showing no changes. Overall, this EKG is unremarkable. Repeat EKG was performed 6 minutes later showing no dynamic changes. - Related Data Home Medications Medication Instructions Recorded Confirmed INSULIN LISPRO (For Pump) [humaLOG See Protocol SQ-PUMP CONTINUOUS 03/30/17 06/24/20 (For Pump)] Ranolazine [Ranexa] 1,000 mg PO DAILY 03/30/17 06/24/20 lisinopriL [Zestril] 10 mg PO DAILY 03/30/17 06/24/20 Isosorbide Mononitrate ER [Imdur] 60 mg PO DAILY 04/11/17 06/24/20 Dialyvite 1 tab PO DAILY 10/09/17 06/24/20 Clopidogrel [Plavix] 75 mg PO DAILY 09/27/18 06/24/20 Sevelamer [Renvela] 2,400 mg PO DAILY PRN 10/10/18 06/24/20 Furosemide [Lasix] 40 mg PO DAILY 06/11/20 06/24/20 Levothyroxine Sodium [Synthroid] 50 mcg PO DAILY 06/11/20 06/24/20 Hydrocortisone [Cortef] See Taper PO DIRECTED 06/24/20 06/24/20 Previous Rx's Medication Instructions Recorded Sevelamer [Renvela] 3,200 mg PO AC-TID #100 tab 03/06/18 Atorvastatin [Lipitor] 80 mg PO DAILY #30 tab 06/22/20 Metoprolol Tartrate [Lopressor] 25 mg PO BID #60 tab 06/22/20 Midodrine [ProAmatine] 5 mg PO TID #90 tablet 06/22/20 Nitroglycerin Sl Tabs [Nitrostat] 0.4 mg SUBLINGUAL Q5M PRN #25 tab 06/22/20 Allergies Allergy/AdvReac Type Severity Reaction Status Date / Time Penicillins Allergy Anaphylaxis Verified 06/24/20 18:25 Review of Systems ROS Statement: Those systems with pertinent positive or pertinent negative responses have been documented in the HPI. ROS Other: All systems not noted in ROS Statement are negative. Past Medical History Past Medical History: Coronary Artery Disease (CAD), Chest Pain / Angina, Heart Failure, Diabetes Mellitus, Eye Disorder, Hyperlipidemia, Hypertension, Myoca rdial Infarction (GA), Osteoarthritis (OA), Renal Disease Additional Past Medical History / Comment(s): IDDM type I with insulin pump, neuropathy bilateral legs, ESRD with hemodialysis M,W,F, normocytic anemia, pulmonary edema, ischemic heart disease, arthritis bilateral hands, past L eye ocular palsy-resolved. 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 Past Anesthesia/Blood Transfusion Reactions: No Reported Reaction Additional Past Anesthesia/Blood Transfusion Reaction / Comment(s): Pt has received blood in past without reaction. Date of Last Stent Placement:: 03/04/18 Past Psychological History: No Psychological Hx Reported Smoking Status: Never smoker Past Alcohol Use History: None Reported Past Drug Use History: None Reported - Past Family History Mother Family Medical History: Cancer, Renal Disease Additional Family Medical History / Comment(s): Mother is . Pt does not recall type of cancer. Father Family Medical History: No Reported History Additional Family Medical History / Comment(s): Pt states father is healthy and is in his mid-late 80s. General Exam Limitations: no limitations Course Vital Signs 06/24/20 06/24/20 06/24/20 17:21 18:00 18:32 Temperature 97.9 F Pulse Rate 87 84 86 Respiratory 20 20 20 Rate Blood Pressure 117/58 91/57 86/57 O2 Sat by Pulse 96 96 100 Oximetry Medical Decision Making - Lab Data Result diagrams: 06/24/20 17:41 06/24/20 17:41 Lab Results 06/24/20 06/24/20 06/24/20 Range/Units 17:41 17:41 17:41 WBC 10.2 (3.8-10.6) k/uL RBC 3.82 L (4.30-5.90) m/uL Hgb 12.6 L (13.0-17.5) gm/dL Hct 36.9 L (39.0-53.0) % MCV 96.6 (80.0-100.0) fL MCH 32.9 (25.0-35.0) pg MCHC 34.1 (31.0-37.0) g/dL RDW 15.5 (11.5-15.5) % Plt Count 172 (150-450) k/uL MPV 7.9 Neutrophils % 88 % Lymphocytes % 6 % Monocytes % 4 % Eosinophils % 1 % Basophils % 0 % Neutrophils # 9.0 H (1.3-7.7) k/uL Lymphocytes # 0.6 L (1.0-4.8) k/uL Monocytes # 0.4 (0-1.0) k/uL Eosinophils # 0.1 (0-0.7) k/uL Basophils # 0.0 (0-0.2) k/uL PT 10.9 (9.0-12.0) sec INR 1.1 (<1.2) APTT 25.6 (22.0-30.0) sec Sodium 132 L (137-145) mmol/L Potassium 4.6 (3.5-5.1) mmol/L Chloride 95 L (98-107) mmol/L Carbon Dioxide 26 (22-30) mmol/L Anion Gap 11 mmol/L BUN 37 H (9-20) mg/dL Creatinine 5.67 H (0.66-1.25) mg/dL Est GFR (CKD-EPI)AfAm 11 (>60 ml/min/1.73 sqM) Est GFR (CKD-EPI)NonAf 10 (>60 ml/min/1.73 sqM) Glucose 145 H (74-99) mg/dL Calcium 8.3 L (8.4-10.2) mg/dL Magnesium 2.2 (1.6-2.3) mg/dL Total Bilirubin 1.2 (0.2-1.3) mg/dL AST 38 (17-59) U/L ALT 103 H (4-49) U/L Alkaline Phosphatase 86 (38-126) U/L CK-MB (CK-2) (0.0-2.4) ng/mL Troponin I (0.000-0.034) ng/mL Total Protein 6.3 (6.3-8.2) g/dL Albumin 3.5 (3.5-5.0) g/dL 06/24/20 Range/Units 17:41 WBC (3.8-10.6) k/uL RBC (4.30-5.90) m/uL Hgb (13.0-17.5) gm/dL Hct (39.0-53.0) % MCV (80.0-100.0) fL MCH (25.0-35.0) pg MCHC (31.0-37.0) g/dL RDW (11.5-15.5) % Plt Count (150-450) k/uL MPV Neutrophils % % Lymphocytes % % Monocytes % % Eosinophils % % Basophils % % Neutrophils # (1.3-7.7) k/uL Lymphocytes # (1.0-4.8) k/uL Monocytes # (0-1.0) k/uL Eosinophils # (0-0.7) k/uL Basophils # (0-0.2) k/uL PT (9.0-12.0) sec INR (<1.2) APTT (22.0-30.0) sec Sodium (137-145) mmol/L Potassium (3.5-5.1) mmol/L Chloride (98-107) mmol/L Carbon Dioxide (22-30) mmol/L Anion Gap mmol/L BUN (9-20) mg/dL Creatinine (0.66-1.25) mg/dL Est GFR (CKD-EPI)AfAm (>60 ml/min/1.73 sqM) Est GFR (CKD-EPI)NonAf (>60 ml/min/1.73 sqM) Glucose (74-99) mg/dL Calcium (8.4-10.2) mg/dL Magnesium (1.6-2.3) mg/dL Total Bilirubin (0.2-1.3) mg/dL AST (17-59) U/L ALT (4-49) U/L Alkaline Phosphatase (38-126) U/L CK-MB (CK-2) 11.8 H (0.0-2.4) ng/mL Troponin I 2.780 H* (0.000-0.034) ng/mL Total Protein (6.3-8.2) g/dL Albumin (3.5-5.0) g/dL Critical Care Time Critical Care Time: Yes Total Critical Care Time: 33 Disposition Clinical Impression: Unstable angina, Myocardial infarction Disposition: ADMITTED IP TO THIS [facility] Condition: Critical Referrals: Travis Bains MD [Primary Care Provider] - 1-2 days Decision Time: 18:49
[2020-06-24 17:53] LABS: Basophils % (A) 0 %; Eosinophils # (A) 0.1 k/uL (0-0.7); Eosinophils % (A) 1 %; HCT 36.9 % (39.0-53.0); HGB 12.6 gm/dL (13.0-17.5); Lymphocytes # (A) 0.6 k/uL (1.0-4.8); Lymphocytes % (A) 6 %; MCH 32.9 pg (25.0-35.0); MCHC 34.1 g/dL (31.0-37.0); MCV 96.6 fL (80.0-100.0); Mean Platelet Volume 7.9; Monocytes # (A) 0.4 k/uL (0-1.0); Monocytes % (A) 4 %; Neutrophils % (A) 88 %; Platelet Count 172 k/uL (150-450); RBC 3.82 m/uL (4.30-5.90); RDW 15.5 % (11.5-15.5); WBC 10.2 k/uL (3.8-10.6)
[2020-06-24] MEDS ORDERED: MORPHINE SULFATE 4 MG/ML SYRINGE IV STA (17:57)
[2020-06-24 18:04] LABS: Albumin 3.5 g/dL (3.5-5.0); Calcium 8.3 mg/dL (8.4-10.2); Magnesium 2.2 mg/dL (1.6-2.3); Potassium 4.6 mmol/L (3.5-5.1); Total Bilirubin 1.2 mg/dL (0.2-1.3); Total Protein 6.3 g/dL (6.3-8.2)
[2020-06-24 18:13] LABS: INR 1.1 (<1.2); Partial Thromboplastin Time 25.6 sec (22.0-30.0); Prothrombin Time 10.9 sec (9.0-12.0)
[2020-06-24 18:16] LABS: Creatine Kinase MB 11.8 ng/mL (0.0-2.4)
[2020-06-24 18:25] LABS: Troponin I 2.78 ng/mL (0.000-0.034)
[2020-06-24] MEDS ORDERED: fentaNYL (PF) 50 MCG/ML 2 ML AMP IVP STA (18:27)
[2020-06-24] MEDS ORDERED: HEPARIN SODIUM,PORCINE 5,000 UNIT/ML 1 ML VIAL IV ONE (18:34)
[2020-06-24] MEDS ORDERED: HEPARIN SODIUM,PORCINE 5,000 UNIT/ML 1 ML VIAL IV PRN (18:34)
--- NOTE | 2020-06-24 18:38 | XR ---
EXAMINATION TYPE: XR chest 2V DATE OF EXAM: 06/24/2020 COMPARISON: 06/21/2020 HISTORY: Chest pain TECHNIQUE: FINDINGS: There is blunting right costophrenic angle. There is some infiltrate right lung base. There is diffuse pulmonary interstitial infiltrate. Heart is enlarged. IMPRESSION: There is evidence for some congestive heart failure superimposed on pulmonary fibrosis. T here is probably some improvement in right lower lobe infiltrate compared to old exam. No change in t he pulmonary congestion.
[2020-06-24] MEDS ORDERED: HEPARIN SOD,PORK IN 0.45% NACL 25,000 UNIT in 0.45% NACL 1 250ML.BAG IV SCH (18:45)
[2020-06-24] MEDS ORDERED: SODIUM CHLORIDE 0.9% 1,000 ML IV STA (18:47)
[2020-06-24] MEDS ORDERED: NALOXONE 0.4 MG/ML 1 ML VIAL IV PRN (18:49)
[2020-06-24] MEDS ORDERED: LIDOCAINE 1% INJ 10MG/ML (20 ML MDV) ONE (19:00)
[2020-06-24] MEDS ORDERED: VERAPAMIL 2.5 MG/ML 2 ML AMP ONE (19:00)
[2020-06-24] MEDS ORDERED: fentaNYL (PF) 50 MCG/ML 2 ML AMP ONE ×2 (19:15→20:45)
[2020-06-24] MEDS ORDERED: IV FLUID CONTINUATION 1,000 ML IV ONE (19:15)
[2020-06-24] MEDS ORDERED: MIDAZOLAM 2 MG/2 ML VIAL IV ONE (19:20)
[2020-06-24] MEDS ORDERED: LIDOCAINE 1% INJ 10MG/ML (20 ML MDV) SQ ONE (19:20)
[2020-06-24] MEDS ORDERED: fentaNYL (PF) 50 MCG/ML 2 ML AMP IV ONE ×2 (19:20→20:53)
[2020-06-24] MEDS ORDERED: NOREPINEPHRINE 4 MG in SODIUM CHLORIDE 0.9% 250 ML IV ONE (19:28)
[2020-06-24] MEDS ORDERED: IOPAMIDOL-370 125ML BTL INJ ONE (20:00)
[2020-06-24] MEDS ORDERED: IOPAMIDOL-370 100ML BTL INJ ONE (20:20)
[2020-06-24 20:25] LABS: VBG PH 7.38 (7.31-7.41)
[2020-06-24 20:26] LABS: VBG PH 7.37 (7.31-7.41)
--- NOTE | 2020-06-24 20:54 | P.CRDCN ---
History of Present Illness Consult date: 06/24/20 History of present illness: HISTORY OF PRESENTING ILLNESS This is a pleasant 65-year-old male with past medical history significant for end-stage renal disease, diabetes mellitus, systolic heart failure, hyperlipidemia, hypertension, coronary artery disease with MCDERMOTT to LAD in 2000, stenting of the circumflex in 2017, recent stenting of the RCA 06/15/2020, cardiac arrest after heart catheterization 06/15 with PEA, aortic valve replacement in [address] [facility] who presents to the hospital after dialysis with chest pain. Patient admits he has not missed any dialysis and had been doing fairly well and then had acute chest pain which felt sharp. This does not change with any movement, inspiration and felt similar to his prior MIs. He did have stenting of the RCA 06/15/2020 and unfortunately had a PEA arrest shortly after the procedure. He was intubated and had some difficulty with extubation and vasopressors however was eventually weaned off pressors and extubated. He was treated for some adrenal insufficiency during that time. His echocardiograms showed ejection fraction 25-30%. His last heart catheterization showed occlusion of the circumflex which was felt to be chronic. He denies any other recent fevers, chills, cough. Patient was noted to be having ongoing chest pain, his troponin was elevated at 2.8 and his CK-MB was elevated at 11.8 and therefore medicine technologist was activated. DIAGNOSTICS EKG reveals sinus rhythm, left axis deviation, left bundle branch block, nonspecific ST-T wave abnormalities. Chest xray findings of pulmonary fibrosis as well as congestive heart failure with pulmonary congestion.. Laboratory reviewed, white blood cell 10.2, hemoglobin 12.6, platelets 172, sodium 132, creatinine 5.67, troponin 2.78, CK-MB 11.8 Current cardiac medications include lisinopril 10 mg daily, Midrin 5 mg by mouth 3 times a day, Lopressor 25 mg twice a day, Imdur 60 mg daily, Cortef taper, Plavix 75 mg daily, Lipitor 80 mg daily, Lasix 40 mg daily. REVIEW OF SYSTEMS At the time of my exam: CONSTITUTIONAL: Denies fever or chills. CARDIOVASCULAR: +chest pain, +shortness of breath, +orthopnea, no PND or palpitations. RESPIRATORY: Denies cough. GASTROINTESTINAL: Denies abdominal pain, diarrhea, constipation, nausea or vomiting. MUSCULOSKELETAL: Denies myalgias. NEUROLOGIC: Denies numbness, tingling or weakness. ENDOCRINE: Denies fatigue, weight change, polydipsia or polyurina. GENITOURINARY: Denies burning, hematuria or urgency with micturation. HEMATOLOGIC: Denies history of anemia or bleeding. PHYSICAL EXAMINATION Blood pressure 94/53 heart rate 86 afebrile and maintaining oxygen saturation on 2 L nasal cannula. CONSTITUTIONAL: + Mild distress, chronic ill-appearing. HEENT: Head is normocephalic. Pupils are equal, round. Sclerae anicteric. Mucous membranes of the mouth are moist. No carotid bruit. CHEST EXAMINATION: + Bilateral rales at the bases HEART EXAMINATION: Regular rate and rhythm. S1, S2 heard. +2/6 systolic murmur, no gallops or rub. ABDOMEN: Soft, nontender. Positive bowel sounds. EXTREMITIES: 2+ peripheral pulses, 2+ lower extremity edema and no calf tenderness. NEUROLOGIC EXAMINATION: Patient is awake, alert and oriented x3. ASSESSMENT 1. Non-STEMI with increased CK-MB and continued chest pain concerning for acute coronary syndrome. Troponin may be elevated from prior admission however CK-MB is elevated and patient having active chest pain. Urgent heart catheterization recommended. 2. Borderline low blood pressures 3. Acute on chronic hypoxic respiratory failure 4. Acute on chronic systolic heart failure 5. End-stage renal disease on hemodialysis 6. Coronary artery disease with history of CABG with MCDERMOTT to LAD, occluded circumflex and recent stenting of the RCA 06/15/2020 7. History of cardiopulmonary arrest 06/15 with PEA 8. History of aortic valve replacement [address] [facility] 9. Hypertension 10. Diabetes mellitus type 2 11. Hyperlipidemia 12. Recent vasopressor requirement and placed on stress dose steroids for suspected adrenal insufficiency PLAN As above, patient with acute chest pain and increased CK-MB concerning for an acute coronary syndrome. [employer] Client [employer] Analyst activated. Continue dual antiplatelets with aspirin and Plavix. Continue to optimize heart failure regimen as able. Check 2-D echo. Further recommendations pending. Stress dose steroids. Past Medical History Past Medical History: Coronary Artery Disease (CAD), Chest Pain / Angina, Heart Failure, Diabetes Mellitus, Eye Disorder, Hyperlipidemia, Hypertension, Myocardial Infarction (AR), Osteoarthritis (OA), Renal Disease Additional Past Medical History / Comment(s): IDDM type I with insulin pump, neuropathy bilateral legs, ESRD with hemodialysis M,W,F, normocytic anemia, pulmonary edema, ischemic heart disease, arthritis bilateral hands, past L eye ocular palsy-resolved. Last Myocardial Infarction Date:: 03/04/18 History of Any Multi-Drug Resistant Organisms: None Reported Past Surgical History: Cardiac Valve Replacement, Coronary Bypass/CABG, Heart Catheterization, Heart Catheterization With Stent Additional Past Surgical History / Comment(s): AVF R forearm, 2015 aortic Valve replacement (swine), PCI with stents, CABG twice-first surgery in 2000 at [facility] and 2nd surgery around 2012 at [place] with post op infection with surgery, umbilical hernia repair, colonoscopy, catataract bilaterally with lens implants, thyroid surgery. Past Anesthesia/Blood Transfusion Reactions: No Reported Reaction Additional Past Anesthesia/Blood Transfusion Reaction / Comment(s): Pt has received blood in past without reaction. Date of Last Stent Placement:: 03/04/18 Past Psychological History: No Psychological Hx Reported Smoking Status: Never smoker Past Alcohol Use History: None Reported Past Drug Use History: None Reported - Past Family History Mother Family Medical History: Cancer, Renal Disease Additional Family Medical History / Comment(s): Mother is . Pt does not recall type of cancer. Father Family Medical History: No Reported History Additional Family Medical History / Comment(s): Pt states father is healthy and is in his mid-late 80s. Medications and Allergies Home Medications Medication Instructions Recorded Confirmed Type INSULIN LISPRO (For Pump) [humaLOG See Protocol SQ-PUMP CONTINUOUS 03/30/17 06/24/20 History (For Pump)] Ranolazine [Ranexa] 1,000 mg PO DAILY 03/30/17 06/24/20 History lisinopriL [Zestril] 10 mg PO DAILY 03/30/17 06/24/20 History Isosorbide Mononitrate ER [Imdur] 60 mg PO DAILY 04/11/17 06/24/20 History Dialyvite 1 tab PO DAILY 10/09/17 06/24/20 History Sevelamer [Renvela] 3,200 mg PO AC-TID #100 tab 03/06/18 06/24/20 Rx Clopidogrel [Plavix] 75 mg PO DAILY 09/27/18 06/24/20 History Sevelamer [Renvela] 2,400 mg PO DAILY PRN 10/10/18 06/24/20 History Furosemide [Lasix] 40 mg PO DAILY 06/11/20 06/24/20 History Levothyroxine Sodium [Synthroid] 50 mcg PO DAILY 06/11/20 06/24/20 History Atorvastatin [Lipitor] 80 mg PO DAILY #30 tab 06/22/20 06/24/20 Rx Metoprolol Tartrate [Lopressor] 25 mg PO BID #60 tab 06/22/20 06/24/20 Rx Midodrine [ProAmatine] 5 mg PO TID #90 tablet 06/22/20 06/24/20 Rx Nitroglycerin Sl Tabs [Nitrostat] 0.4 mg SUBLINGUAL Q5M PRN #25 tab 06/22/20 06/24/20 Rx Hydrocortisone [Cortef] See Taper PO DIRECTED 06/24/20 06/24/20 History Allergies Allergy/AdvReac Type Severity Reaction Status Date / Time Penicillins Allergy Anaphylaxis Verified 06/24/20 18:25 Physical Exam Vitals: Vital Signs Temp Pulse Resp BP Pulse Ox 06/24/20 18:55 86 18 94/53 97 06/24/20 18:32 86 20 86/57 100 06/24/20 18:00 84 20 91/57 96 06/24/20 17:21 97.9 F 87 20 117/58 96 Intake and Output 06/24/20 06/24/20 06/24/20 06:59 14:59 22:59 Other: Weight 97.069 kg Results 06/24/20 17:41 06/24/20 17:41 Cardiac Enzymes 06/24/20 06/24/20 Range/Units 17:41 17:41 AST 38 (17-59) U/L CK-MB (CK-2) 11.8 H (0.0-2.4) ng/mL Troponin I 2.780 H* (0.000-0.034) ng/mL Coagulation 06/24/20 Range/Units 17:41 PT 10.9 (9.0-12.0) sec APTT 25.6 (22.0-30.0) sec CBC 06/24/20 Range/Units 17:41 WBC 10.2 (3.8-10.6) k/uL RBC 3.82 L (4.30-5.90) m/uL Hgb 12.6 L (13.0-17.5) gm/dL Hct 36.9 L (39.0-53.0) % Plt Count 172 (150-450) k/uL Comprehensive Metabolic Panel 06/24/20 Range/Units 17:41 Sodium 132 L (137-145) mmol/L Potassium 4.6 (3.5-5.1) mmol/L Chloride 95 L (98-107) mmol/L Carbon Dioxide 26 (22-30) mmol/L BUN 37 H (9-20) mg/dL Creatinine 5.67 H (0.66-1.25) mg/dL Glucose 145 H (74-99) mg/dL Calcium 8.3 L (8.4-10.2) mg/dL AST 38 (17-59) U/L ALT 103 H (4-49) U/L Alkaline Phosphatase 86 (38-126) U/L Total Protein 6.3 (6.3-8.2) g/dL Albumin 3.5 (3.5-5.0) g/dL Current Medications Generic Name Dose Route Start Last Admin Trade Name Freq PRN Reason Stop Dose Admin Heparin Sodium (Porcine) 0 unit 06/24/20 18:34 Heparin Sodium,Porcine 5,000 Unit/Ml 1 Ml Vial IV PER PROTOCOL PRN Low PTT Protocol Heparin Sodium/Sodium Chloride 250 mls @ 9.998 mls/hr 06/24/20 18:45 06/24/20 18:53 25,000 unit/ Sodium Chloride IV 10.3 units/kg/hr .Q24H MOMO 9.998 mls/hr Administration Protocol 10.3 UNITS/KG/HR Naloxone HCl 0.2 mg 06/24/20 18:49 Naloxone 0.4 Mg/Ml 1 Ml Vial IV Q2M PRN Opioid Reversal Intake and Output 06/24/20 06/24/20 06/24/20 06:59 14:59 22:59 Other: Weight 97.069 kg Patient Weight 06/25/20 06:59 Weight 97.069 kg 06/24/20 17:41 06/24/20 17:41
[2020-06-24] MEDS ORDERED: RX INFO: IV CONTRAST WAS GIVEN 1 EACH MISC MISCELLANE PRN (21:28)
--- NOTE | 2020-06-24 21:28 | P.CARDCATH ---
Date of Procedure: 06/24/20 Description of Procedure: PROCEDURES PERFORMED: Right heart catheterization, bilateral coronary angiography, MCDERMOTT to LAD angiography, ultrasound guidance INDICATION: Non-STEMI, ongoing chest pain HISTORY: Patient is a pleasant 65-year-old male with history of coronary artery disease status post CABG with only remaining graft MCDERMOTT to LAD, prior PCI to the circumflex and history of occluded circumflex, RCA stenosis status post recent PCI 06/15/2020, end-stage renal disease, diabetes mellitus, aortic valve replacement 2014, systolic heart failure with ejection fraction 25-30%. Patient had recent admission 06/14 for non-STEMI and had PCI of his RCA. Unfortunately afterwards he developed PEA and had CPR performed and required vasopressors and mechanical ventilation for some time. He was discharged 2 days ago and had been doing well up until after his dialysis where he started to have chest pain and therefore came to the emergency department. CONSENT:I have discussed the risks, benefits and alternative therapies for the above-mentioned procedure and for both sedation/analgesia as well as necessary blood product administration, if indicated, as they pertain to this patient. The patient has indicated understanding and acceptance of the risks and procedures discussed. PROCEDURE: After the risks, benefits and alternatives of the above mentioned procedure explained in detail with the patient, informed consent was obtained. Patient was taken to the catheterization lab and prepped and draped in usual fashion. 1% lidocaine was used to anesthetize the right femoral artery. A 6- Moldovan sheath was placed in the right femoral artery using modified Seldinger technique. Left coronary angiography was performed with a 6-Moldovan JL 4.5 catheter and right coronary angiography was performed with a 6-Moldovan JR4 catheter in various views. MCDERMOTT to LAD angiography was performed with the JR4 catheter. Patient did have some hemodynamic instability with systolic blood pressures in the 70s and therefore vasopressors were started. Due to hypotension, a right heart catheterization was performed. We did attempt to cross the aortic valve with a pigtail catheter and then a AL-1 catheter with a straight wire however this was unsuccessful and patient did have mild desaturations and therefore the procedure was aborted. A right femoral angiogram was performed which showed adequate anatomy for closure. A 6-Moldovan Angio-Seal closure device was placed with hemostasis achieved. The right femor al venous sheath was sutured in place for possible use by ICU. Patient was able to be weaned down from the vasopressors and off of vasopressors by then the case. Patient additionally had no more chest pain by the end of the case. The patient tolerated the procedure. Patient was transported back to the post catheterization holding area with borderline blood pressures however off of vasopressors. Conscious Sedation: Patient was monitored under the direct supervision of vision of myself for conscious sedation using Versed and fentanyl for a total duration of 69 minutes SELECTIVE CORONARY ARTERIOGRAPHY: LEFT MAIN: The left main is a large caliber vessel which bifurcates into the LAD and circumflex. There is no significant stenosis. LEFT ANTERIOR DESCENDING CORONARY ARTERY: LAD is a large caliber vessel which wraps around to the apex. There is diffuse proximal limited LAD mild stenosis and at its maximum 30-40% proximal LAD stenosis. There is heavy calcification of the mid LAD and 50% diffuse stenosis. There is a 85% mid LAD stenosis. There is some competitive flow with the MCDERMOTT to LAD. There are some left to left collaterals. LEFT CIRCUMFLEX CORONARY ARTERY: Left circumflex is a moderate caliber vessel with a long portion of stent with 100% occlusion of the mid circumflex. RIGHT CORONARY ARTERY: The right coronary artery is a moderate caliber vessel which gives off a PDA and PLV branch and is the dominant vessel. There is a long proximal and mid stent which is patent with 10-20% in-stent stenosis. There is mid 40% stenosis distal to the stent. There is mild disease of the PDA and PLV. MCDERMOTT to LAD: MCDERMOTT to LAD is widely patent without significant stenosis. The distal LAD is small in caliber and mild diffuse disease. Right heart catheterization: Ao: 86/40mmHg RA: 15mmHg RV: 70/4mmHg PA: 76/31mmHg PCWP: 38mmHg Femoral artery oxygen saturation: 55% PA oxygen saturation: 98% HECTOR CO: 3.88 L/min HECTOR CI: 1.82 L/min/m2 FINAL IMPRESSION: 1. Relatively unchanged coronary artery disease compared to heart catheterization 06/15/2020 with patent RCA stent, 85% mid LAD stenosis with patent MCDERMOTT to LAD and known 100% occlusion of circumflex. 2. Cardiogenic shock with cardiac output 3.9 L/min 3. Increased right and left sided pressures 4. Group 2 pulmonary hypertension 5. Difficulty crossing aortic valve. May consider further workup with transthoracic echo and possible MOISÉS. PLAN: 1. Aggressive risk factor modification per most recent ACC/AHA guidelines. 2. Continue to monitor patient off of pressors as his blood pressure has somewhat stabilized. 3. Consider closer evaluation of aortic valve with difficulty crossing aortic valve. 4. If hemodynamically unstable, may consider Levophed and or Dobutamine. Hold BBlocker given cardiogenic shock.
[2020-06-24] MEDS ORDERED: FUROSEMIDE 10 MG/ML 4 ML VIAL ONE (21:35)
[2020-06-24] MEDS ORDERED: FUROSEMIDE 10 MG/ML 4 ML VIAL IV ONE ×2 (21:42)
[2020-06-24 21:56] LABS: Glucose,Whole Blood 172 mg/dL (75-99)
[2020-06-24 22:13] LABS: Glucose,Whole Blood 153 mg/dL (75-99)
--- NOTE | 2020-06-24 22:31 | P.HPIM ---
History of Present Illness H&P Date: 06/24/20 Chief Complaint: Unstable angina, non-ST LA, advanced cardiomyopathy, recent history of card 65-year-old male one of my office patient with past medical history of end-stage renal disease Advanced cardiomyopathy, history of diabetes, systolic congestive heart failure, pulmonary hypertension, and multiple other medical problem who is known to have history of coronary disease with MCDERMOTT to the LAD in 2000 and stenting of the circumflex in 2018 recent stenting of the RCA and 06/15/2020 with cardiac arrest after heart catheter on 06-15 with PEA, aortic valve placement back in 2014 at [facility]. Patient left the hospital 2 days ago after long hospitalization for his intubation mechanical ventilation after his cardiac arrest from his heart catheter ended up on mechanical ventilation and vasopressor for many days finally was extubated successfully and done well was taking of vasopressor his hemoglobin was low patient continued having slight chest pain but with controlled with medication. 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 Rivera finding of unchanged coronary artery disease compared to the heart cath and 06/15/2020 with patent RCA, 85 percentile mid LAD stenosis with patent MCDERMOTT to the LAD and known 100% occlusion of the circumflex, patient cardiac output remained 3.9 L/m increased right to left sided pressure, group 2 pulmonary hypertension with pressure over 55 mmHg, also had significant abnormality in the aortic valve with difficult crossing which can be consistent with severe stenosis. Patient finishes procedure successfully was transferred to the ICU for symptoms control his ejection fraction remain less than 25%. Review of Systems CONSTITUTIONAL: Well-developed no acute respiratory distress. EYES: No icterus sclerae, no conjunctivitis. EARS, NOSE, MOUTH, THROAT, and FACE: No sore throat, lymphadenopathy, carotid bruits or deformity. RESPIRATORY: Positive shortness of breath no cough positive wheezes. CARDIOVASCULAR: Positive angina with chest pain recurrent shortness of breath with minimum exertion and positive PND with mild palpitation. GASTROINTESTINAL: No Abd pain, Nausea or vomiting, no Diarrhea or constipation, No GI Bleed, no distention or masses. GENITOURINARY: Negative for Hematuria or UTI, no kidney stones. End-stage renal disease on hemodialysis. INTEGUMENT/BREAST: Negative for any muscular injury with mild osteoarthritis.. HEMATOLOGIC/LYMPHATIC: Negative for bleed or purpura. Chronic anemia. MUSCULOSKELTAL: Negative for Myalgia or arthralgia. NEURLOGICAL: No LOC, Sz or syncope, blurred vision dizziness or abnormality.. Chronic peripheral neuropathy. BEHAVIORAL/PSYCH: Negative. ENDOCRINE: Negative. Past Medical History Past Medical History: Coronary Artery Disease (CAD), Chest Pain / Angina, Heart Failure, Diabetes Mellitus, Eye Disorder, Hyperlipidemia, Hypertension, Myocardial Infarction (LA), Osteoarthritis (OA), Renal Disease Additional Past Medical History / Comment(s): IDDM type I with insulin pump, neuropathy bilateral legs, ESRD with hemodialysis M,W,F, normocytic anemia, pulmonary edema, ischemic heart disease, arthritis bilateral hands, past L eye ocular palsy-resolved. Last Myocardial Infarction Date:: 03/04/18 History of Any Multi-Drug Resistant Organisms: None Reported Past Surgical History: Cardiac Valve Replacement, Coronary Bypass/CABG, Heart Catheterization, Heart Catheterization With Stent Additional Past Surgical History / Comment(s): AVF R forearm, 2014 aortic Valve replacement (swine), PCI with stents, CABG twice-first surgery in 2000 at [facility] and 2nd surgery around 2012 at [facility] with post op infection with surgery, umbilical hernia repair, colonoscopy, catataract bilaterally with lens implants, thyroid surgery. Past Anesthesia/Blood Transfusion Reactions: No Reported Reaction Additional Past Anesthesia/Blood Transfusion Reaction / Comment(s): Pt has received blood in past without reaction. Date of Last Stent Placement:: 03/04/18 Past Psychological History: No Psychological Hx Reported Smoking Status: Never smoker Past Alcohol Use History: None Reported Past Drug Use History: None Reported - Past Family History Mother Family Medical History: Cancer, Renal Disease Additional Family Medical History / Comment(s): Mother is . Pt does not recall type of cancer. Father Family Medical History: No Reported History Additional Family Medical History / Comment(s): Pt states father is healthy and is in his mid-late 80s. Medications and Allergies Home Medications Medication Instructions Recorded Confirmed Type INSULIN LISPRO (For Pump) [humaLOG See Protocol SQ-PUMP CONTINUOUS 03/30/17 06/24/20 History (For Pump)] Ranolazine [Ranexa] 1,000 mg PO DAILY 03/30/17 06/24/20 History lisinopriL [Zestril] 10 mg PO DAILY 03/30/17 06/24/20 History Isosorbide Mononitrate ER [Imdur] 60 mg PO DAILY 04/11/17 06/24/20 History Dialyvite 1 tab PO DAILY 10/09/17 06/24/20 History Sevelamer [Renvela] 3,200 mg PO AC-TID #100 tab 03/06/18 06/24/20 Rx Clopidogrel [Plavix] 75 mg PO DAILY 09/27/18 06/24/20 History Sevelamer [Renvela] 2,400 mg PO DAILY PRN 10/10/18 06/24/20 History Furosemide [Lasix] 40 mg PO DAILY 06/11/20 06/24/20 History Levothyroxine Sodium [Synthroid] 50 mcg PO DAILY 06/11/20 06/24/20 History Atorvastatin [Lipitor] 80 mg PO DAILY #30 tab 06/22/20 06/24/20 Rx Metoprolol Tartrate [Lopressor] 25 mg PO BID #60 tab 06/22/20 06/24/20 Rx Midodrine [ProAmatine] 5 mg PO TID #90 tablet 06/22/20 06/24/20 Rx Nitroglycerin Sl Tabs [Nitrostat] 0.4 mg SUBLINGUAL Q5M PRN #25 tab 06/22/20 06/24/20 Rx Hydrocortisone [Cortef] See Taper PO DIRECTED 06/24/20 06/24/20 History Allergies Allergy/AdvReac Type Severity Reaction Status Date / Time Penicillins Allergy Anaphylaxis Verified 06/24/20 18:25 Physical Exam Vitals: Vital Signs Temp Pulse Resp BP Pulse Ox 06/24/20 18:55 86 18 94/53 97 06/24/20 18:32 86 20 86/57 100 06/24/20 18:00 84 20 91/57 96 06/24/20 17:21 97.9 F 87 20 117/58 96 Intake and Output 06/24/20 06/24/20 06/24/20 06:59 14:59 22:59 Intake Total 321 Balance 321 Intake: IV 321 Other: Weight 97.069 kg General Appearance: Alert, cooperative, no distress, appears stated age. Neck HEENT: Supple, no lymphadenopathy, no thyroid enlargement, no carotid bruits. Lungs: Decreased breath sounds bilaterally with fine rhonchi positive mild expiratory wheezes Chest Wall: Decrease expansion with deep inspiration no tenderness and no deformity was found on exam, no costochondral pain or discomfort. Heart: Irregular rate and rhythm, S1, S2 positive history positive systolic murmur in the With JVD. Back: Symmetric, no curvature, ROM normal, no CVA tenderness. Abdomen: Soft, non-tender, bowel sounds active all four quadrants, no masses, no organomegaly. Extremities: Extremities 1+ edema decreased pulse bilaterally. Pulses: 2+ and symmetric. Skin: Skin color, texture, tugor normal, no rashes or lesions. Neurologic: Alert oriented x3 cranial nerves II through XII intact, no motor deficit, no abnormal balance or gait. Results CBC & Chem 7: 06/24/20 17:41 06/24/20 17:41 Labs: Abnormal Lab Results - Last 24 Hours (Table) 06/24/20 06/24/20 06/24/20 Range/Units 17:41 17:41 17:41 RBC 3.82 L (4.30-5.90) m/uL Hgb 12.6 L (13.0-17.5) gm/dL Hct 36.9 L (39.0-53.0) % Neutrophils # 9.0 H (1.3-7.7) k/uL Lymphocytes # 0.6 L (1.0-4.8) k/uL VBG HCO3 (24-28) mmol/L Sodium 132 L (137-145) mmol/L Chloride 95 L (98-107) mmol/L BUN 37 H (9-20) mg/dL Creatinine 5.67 H (0.66-1.25) mg/dL Glucose 145 H (74-99) mg/dL POC Glucose (mg/dL) (75-99) mg/dL Calcium 8.3 L (8.4-10.2) mg/dL ALT 103 H (4-49) U/L CK-MB (CK-2) 11.8 H (0.0-2.4) ng/mL Troponin I 2.780 H* (0.000-0.034) ng/mL 06/24/20 06/24/20 06/24/20 Range/Units 19:51 21:34 22:12 RBC (4.30-5.90) m/uL Hgb (13.0-17.5) gm/dL Hct (39.0-53.0) % Neutrophils # (1.3-7.7) k/uL Lymphocytes # (1.0-4.8) k/uL VBG HCO3 23 L (24-28) mmol/L Sodium (137-145) mmol/L Chloride (98-107) mmol/L BUN (9-20) mg/dL Creatinine (0.66-1.25) mg/dL Glucose (74-99) mg/dL POC Glucose (mg/dL) 172 H 153 H (75-99) mg/dL Calcium (8.4-10.2) mg/dL ALT (4-49) U/L CK-MB (CK-2) (0.0-2.4) ng/mL Troponin I (0.000-0.034) ng/mL Thrombosis Risk Factor Assmnt - DVT/VTE Prophylaxis DVT/VTE Prophylaxis: Pharmacologic Prophylaxis ordered, Mechanical Prophylaxis ordered Assessment and Plan Assessment: 1 unstable angina and recurrent chest pain with recent history of myocardial infarction as non-ST LA post angioplasty and stent placement patient continued to be symptomatic at this point patient was admitted to the hospital heart catheter was performed no change from last time significant finding with mul tiple coronary a disease along with angioplasty and severe pulmonary hypertension with possible severe aortic stenosis. 2 respiratory failure was on mechanical ventilation for several days and has do ne well. 3 recent history of cardiogenic shock: With low ejection fraction continue medical management at this point. 4 end-stage renal disease on hemodialysis 3 times a week. 5 severe ischemic cardiomyopathy with significantly low ejection fraction: Continue medical management and continue to mobilize free fluid consult. 6 pulmonary hypertension on medical management currently. 7 brittle insulin-dependent diabetes mellitus most likely type I has been on insulin pump which should be converted to insulin drip currently pump will be stopped while his ICU till is ready to leave the hospital will go back on his pump and able to manage it as before. 8 post aortic valve placement with significant stenosis finding on heart cath patient might need transesophageal echocardiogram for better view of the aortic valve structure. 9 A. fib with RVR: Patient remain on beta renetta. 10 hyperlipidemia: Remain on atorvastatin. 11 BPH: Watch for any urinary retention. 12 GI prophylaxis: Patient be on Pepcid daily. 13 DVT prophylaxis: Will be on anticoagulation. CODE STATUS: Full code. Admit patient to the inpatient service more than 2 night stay.
[2020-06-25] MEDS ORDERED: ONDANSETRON 4 MG/2 ML VIAL ONE (00:01)
[2020-06-25] MEDS ORDERED: ONDANSETRON 4 MG/2 ML VIAL IVP PRN (00:03)
[2020-06-25] MEDS ORDERED: propofoL 100 ML IV ONE (00:28)
[2020-06-25] MEDS ORDERED: ETOMIDATE 2 MG/ML 10 ML VIAL ONE (00:40)
[2020-06-25] MEDS ORDERED: SUCCINYLCHOLINE CHLORIDE VIAL 200 MG/10 ML VIAL IV ONE (00:40)
[2020-06-25 01:13] LABS: ABG Base Excess -4.6 mmol/L; ABG HCO3 21 mmol/L (21-25); ABG PCO2 40 mmHg (35-45); ABG PH 7.34 (7.35-7.45); ABG PO2 331 mmHg (83-108); ABG TCO2 22 mmol/L (19-24); Allen Test Performed? Yes
--- NOTE | 2020-06-25 01:18 | XR ---
EXAM: XR Chest, 1 View CLINICAL HISTORY: ITS.REASON XR Reason: Tube placement TECHNIQUE: Frontal view of the chest. COMPARISON: 06/24/2020 at 6:13 PM FINDINGS: Lungs: Diffuse perihilar reticular opacities and hazy opacities. Pleural space: Blunting of the right costophrenic angle. No pneumothorax. Heart: Cardiomegaly, unchanged. Mediastinum: Unremarkable. Bones/joints: Unremarkable. Lines and tubes: Interval intubation. Endotracheal tube terminates 2.0 cm above the level of the álvaro. Nasogastric tube terminates below field of view in the right upper quadrant, likely in the stomach pylorus or proximal duodenum. IMPRESSION: 1. Interval intubation. Endotracheal tube terminates 2.0 cm above the level of the álvaro. 2. Nasogastric tube terminates below field of view in the right upper quadrant, likely in the stomach pylorus or proximal duodenum. 3. Unchanged diffuse bilateral hazy opacities.
[2020-06-25] MEDS: NOREPINEPHRINE 4 MG in SODIUM CHLORIDE 0.9% 250 ML IV SCH ×6 (03:02→06:54)
[2020-06-25] MEDS: LORazepam 2 MG/ML INJ IV PRN (04:03)
[2020-06-25 05:11] LABS: ABG Base Excess -1.4 mmol/L; ABG HCO3 23 mmol/L (21-25); ABG Oxygen Saturation 97.4 % (94-97); ABG PCO2 37 mmHg (35-45); ABG PO2 91 mmHg (83-108); ABG TCO2 25 mmol/L (19-24); Allen Test Performed? Yes
[2020-06-25 05:38] LABS: Glucose,Whole Blood 158 mg/dL (75-99)
[2020-06-25 05:47] LABS: Basophils % (A) 0 %; Eosinophils # (A) 0.1 k/uL (0-0.7); Eosinophils % (A) 0 %; HGB 12.6 gm/dL (13.0-17.5); Lymphocytes # (A) 0.5 k/uL (1.0-4.8); Lymphocytes % (A) 3 %; MCH 32.2 pg (25.0-35.0); MCHC 33.1 g/dL (31.0-37.0); MCV 97.1 fL (80.0-100.0); Macrocytosis Slight; Mean Platelet Volume 7.7; Monocytes # (A) 0.7 k/uL (0-1.0); Monocytes % (A) 4 %; Neutrophils # (A) 15.9 k/uL (1.3-7.7); Neutrophils % (A) 92 %; Platelet Count 245 k/uL (150-450); RBC 3.92 m/uL (4.30-5.90); RDW 15.8 % (11.5-15.5); WBC 17.3 k/uL (3.8-10.6)
[2020-06-25 05:59] LABS: Albumin 3.5 g/dL (3.5-5.0); Calcium 7.9 mg/dL (8.4-10.2); Potassium 4.5 mmol/L (3.5-5.1); Total Bilirubin 1.3 mg/dL (0.2-1.3); Total Protein 6.3 g/dL (6.3-8.2)
--- NOTE | 2020-06-25 09:15 | PN ---
PROGRESS NOTE Mr. Rosales is a 65-year-old male with a known history of coronary artery disease, status post coronary artery bypass grafting, status post aortic valve replacement, end- stage renal disease on hemodialysis, who recently was admitted to the hospital with non ST-segment elevation myocardial infarction, underwent cardiac catheterization and stenting of his right coronary artery. Post procedure, he had a cardiac arrest with PDA. Who underwent CPR was intubated, subsequently extubated. His echocardiogram revealed decrease in the left ventricular systolic function. He was discharged home to be admitted yesterday with symptoms of progressive dyspnea and chest discomfort. His baseline EKG shows a left bundle branch block that is chronic. Because of his presentation, he underwent cardiac catheterization by Dr. Rivera and was found to have patent stent to the RCA with a patent MCDERMOTT to LAD and chronic occluded left circumflex. During the night he became more unstable, hypoxemia and hypotensive requiring mechanical ventilation and pressors. He is intubated and sedated at this time. He is in sinus mechanism and there is no episode of ventricle tachyarrhythmia. He continues to be on norepinephrine at this time. PHYSICAL EXAMINATION: Blood pressure running 107/40 with a heart rate in the 90s. LUNGS: Clear anteriorly. HEART: Regular rate and rhythm, S1, S2. No S3 with systolic murmur heard at the base 2/6, no diastolic murmur, no rub. ABDOMEN: Soft, positive bowel sounds. No organomegaly. EXTREMITIES: +1 edema bilaterally. LAB DATA: Revealed hemoglobin 12.6, white blood cell of 17.3, his pH 7.4, pCO2 of 37, PO2 of 91. BUN and creatinine 33 and 4.6. His troponin on presentation was 2.78 which is probably trending down from his prior admission with he peaked at 54. His EKG revealed a left bundle branch block with first-degree AV block. His chest x- ray shows bilateral congestion. The patient underwent dialysis this morning. IMPRESSION: 1. Status post recent stenting of the right coronary artery patent. 2. Status post coronary artery bypass grafting and aortic valve replacement. 3. Possible aortic stenosis. 4. Cardiomyopathy, which is recent. 5. Respiratory failure. 6. End-stage renal disease. 7. Diabetes mellitus. 8. Hyperlipidemia. RECOMMENDATION: I will re-initiate the treatment with dual antiplatelet treatment. Will re-initiate low- dose beta renetta and hopefully once his pressors are off. He will have repeat echocardiogram today to evaluate his left ventricular systolic function and his aortic valve. He will be evaluated by Dr. Epps and depending on his progress, further recommendation will be made. The prognosis remains guarded. MMODL / IJN: [id number] /
--- NOTE | 2020-06-25 10:18 | XR ---
EXAMINATION TYPE: XR chest 1V portable DATE OF EXAM: 06/25/2020 COMPARISON: 06/25/2020 INDICATION: Line placement TECHNIQUE: Single frontal view of the chest is obtained. FINDINGS: The heart size is moderately prominent. The pulmonary vasculature is prominent. There is diffuse increased lung markings 3 correlate for pulmonary edema. Atypical pneumonia could be considered. Small right pleural effusion may be present. Endotracheal tube tip is above the álvaro. Nasogastric tube transverses the thorax tip in the right u pper quadrant of the abdomen. There is placement of a left central venous catheter with tip in the superior vena cava region. Thora x is evident. Small pneumothorax may not be identified in the supine view. IMPRESSION: 1. No large pneumothorax on this supine view post line placement. Tip is in the superior vena cava re gion. 2. Diffuse infiltrates and small right pleural effusion similar to earlier exam
--- NOTE | 2020-06-25 10:55 | P.PN ---
Subjective Progress Note Date: 06/25/20 HISTORY OF PRESENT ILLNESS 65-year-old male one of my office patient with past medical history of end-stage renal disease Advanced cardiomyopathy, history of diabetes, systolic congestive heart failure, pulmonary hypertension, and multiple other medical problem who is known to have history of coronary disease with MCDERMOTT to the LAD in 2000 and stenting of the circumflex in 2018 recent stenting of the RCA and 06/15/2020 with cardiac arrest after heart catheter on 06-15 with PEA, aortic valve placement back in 2014 at [facility]. Patient left the hospital 2 days ago after long hospitalization for his intubation mechanical ventilation after his cardiac arrest from his heart catheter ended up on mechanical ventilation and vasopressor for many days finally was extubated successfully and done well was taking of vasopressor his hemoglobin was low patient continued having slight chest pain but with controlled with medication. Left the hospital successfully and doing well he was in dialysis today during after dialysis developed to have midsternal chest pain and recurrent angina with severe pain in the midsternal area associated with wide bit cold sweat along with palpitation nausea ended up coming to the emergency department at [facility] found to have significantly elevated troponin at 2.78 with slightly atypical change in EKG with his current symptoms patient was taken to the laborer heading by cardiology had heart cath with Dr. Rivera finding of unchanged coronary artery disease compared to the heart cath and 06/15/2020 with patent RCA, 85 percentile mid LAD stenosis with patent MCDERMOTT to the LAD and known 100% occlusion of the circumflex, patient cardiac output remained 3.9 L/m increased right to left sided pressure, group 2 pulmonary hypertension with pressure over 55 mmHg, also had significant abnormality in the aortic valve with difficult crossing which can be consistent with severe stenosis. Patient finishes procedure successfully was transferred to the ICU for symptoms control his ejection fraction remain less than 25%. 06/25: Patient was discharged to ICU on BiPAP but desatted during the night and became hypotensive. He required intubation and remains on mechanical ventilation with tidal volume 500, FiO2 40, PEEP of 5. Patient is also on norepinephrine. He has been afebrile, heart rate 92, blood pressure 111/65, pulse ox 99% gear shaper is a sinus rhythm. Repeat chest x-ray this morning reveals no large pneumothorax. Diffuse infiltrates and small right pleural effusion similar to earlier exam. Patient had hemodialysis this morning with removal of 2.5 liters. Repeat blood work reveals WBC 17.3, hemoglobin 12.6. Sodium 132, potassium 4.5, chloride 96, CO2 23, BUN 33 and creatinine 4.61. Blood sugar 158. REVIEW OF SYSTEMS Unable to obtain due to intubation. PHYSICAL EXAMINATION General Appearance: Alert, cooperative, no distress, appears stated age. Neck HEENT: Supple, no lymphadenopathy, no thyroid enlargement, no carotid bruits. Intubated and on mechanical ventilation and appears comfortable. Lungs: Decreased breath sounds bilaterally with fine rhonchi positive mild expiratory wheezes Chest Wall: Decrease expansion with deep inspiration no tenderness and no deformity was found on exam, no costochondral pain or discomfort. Heart: Irregular rate and rhythm, S1, S2 positive history positive systolic murmur in the With JVD. Back: Symmetric, no curvature, ROM normal, no CVA tenderness. Abdomen: Soft, non-tender, bowel sounds active all four quadrants, no masses, no organomegaly. Alberts catheter was small amount of urine. Extremities: Extremities 1+ edema decreased pulse bilaterally. Pulses: 2+ and symmetric. Skin: Skin color, texture, tugor normal, no rashes or lesions. Neurologic: Sedated and on mechanical ventilation. ASSESSMENT AND PLAN 1 unstable angina and recurrent chest pain with recent history of myocardial infarction as non-ST PA post angioplasty and stent placement patient continued to be symptomatic at this point patient was admitted to the hospital, heart catheter was performed no change from last time significant finding with multiple coronary a disease along with angioplasty and severe pulmonary hypertension with possible severe aortic stenosis. Continue aspirin, atorvastatin, Plavix, Lopressor on hold due to hypotension. 2 acute hypoxic respiratory failure requiring intubation and mechanical ventilation. Pulmonary medicine on consult. 3 cardiogenic shock requiring vasopressors. Patient managed in the intensive care unit. 4 end-stage renal disease on hemodialysis 3 times a week. 5 severe ischemic cardiomyopathy with significantly low ejection fraction: Continue medical management and continue to mobilize free fluid consult. 6 pulmonary hypertension on medical management currently. 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 Patient started on insulin scale every 6 hours for now. 8 post aortic valve placement with significant stenosis finding on heart cath patient might need transesophageal echocardiogram for better view of the aortic valve structure. 9 no history of atrial fibrillation per cardiology. 10 hyperlipidemia: Remain on atorvastatin. 11 BPH. Alberts catheter in place. 12 GI prophylaxis: Protonix daily. 13 DVT prophylaxis: Will be on anticoagulation. CODE STATUS: Full code. Prognosis guarded DISCHARGE PLAN To be determined. Impression and plan of care have been directed as dictated by the signing physician. Tomasa Atkins nurse practitioner acting as scribe for signing physician. Objective - Vital Signs Vital signs: Vital Signs Temp 98.0 F 06/25/20 06:00 Pulse 94 06/25/20 07:30 Resp 22 06/25/20 07:30 BP 113/60 06/25/20 07:30 Pulse Ox 99 06/25/20 07:30 Intake & Output 06/24/20 06/25/20 06/25/20 18:59 06:59 18:59 Intake Total 1333.450 28.97 Output Total 2300 40 Balance -966.550 -11.03 Weight 97.069 kg 110.9 kg Intake: IV 321 Intake, IV Titration 1012.450 28.97 Amount Norepinephrine 4 mg In 882.764 28.97 Sodium Chloride 0.9% 250 ml @ 0.05 MCG/KG/MIN 18. 492 mls/hr IV .[id number] [facility] Rx#:[id number] propofoL 1,000 mg In 129.686 Empty Bag 1 bag @ Titrate IV .Q0M [facility] Rx#: [id number] Output: Urine 40 Hemodialysis 2300 Other: Voiding Method Indwelling Catheter ABP, PAP, CO, CI - Last Documented Arterial Blood Pressure 104/44 - Labs CBC & Chem 7: 06/25/20 05:37 06/25/20 05:37 Labs: Abnormal Lab Results - Last 24 Hours (Table) 06/24/20 06/24/20 06/24/20 Range/Units 17:41 17:41 17:41 WBC (3.8-10.6) k/uL RBC 3.82 L (4.30-5.90) m/uL Hgb 12.6 L (13.0-17.5) gm/dL Hct 36.9 L (39.0-53.0) % RDW (11.5-15.5) % Neutrophils # 9.0 H (1.3-7.7) k/uL Lymphocytes # 0.6 L (1.0-4.8) k/uL ABG pH (7.35-7.45) ABG pO2 (83-108) mmHg ABG Total CO2 (19-24) mmol/L ABG O2 Saturation (94-97) % VBG HCO3 (24-28) mmol/L Sodium 132 L (137-145) mmol/L Chloride 95 L (98-107) mmol/L BUN 37 H (9-20) mg/dL Creatinine 5.67 H (0.66-1.25) mg/dL Glucose 145 H (74-99) mg/dL POC Glucose (mg/dL) (75-99) mg/dL Calcium 8.3 L (8.4-10.2) mg/dL AST (17-59) U/L ALT 103 H (4-49) U/L CK-MB (CK-2) 11.8 H (0.0-2.4) ng/mL Troponin I 2.780 H* (0.000-0.034) ng/mL 06/24/20 06/24/20 06/24/20 Range/Units 19:51 21:34 22:12 WBC (3.8-10.6) k/uL RBC (4.30-5.90) m/uL Hgb (13.0-17.5) gm/dL Hct (39.0-53.0) % RDW (11.5-15.5) % Neutrophils # (1.3-7.7) k/uL Lymphocytes # (1.0-4.8) k/uL ABG pH (7.35-7.45) ABG pO2 (83-108) mmHg ABG Total CO2 (19-24) mmol/L ABG O2 Saturation (94-97) % VBG HCO3 23 L (24-28) mmol/L Sodium (137-145) mmol/L Chloride (98-107) mmol/L BUN (9-20) mg/dL Creatinine (0.66-1.25) mg/dL Glucose (74-99) mg/dL POC Glucose (mg/dL) 172 H 153 H (75-99) mg/dL Calcium (8.4-10.2) mg/dL AST (17-59) U/L ALT (4-49) U/L CK-MB (CK-2) (0.0-2.4) ng/mL Troponin I (0.000-0.034) ng/mL 06/25/20 06/25/20 06/25/20 Range/Units 01:08 05:09 05:36 WBC (3.8-10.6) k/uL RBC (4.30-5.90) m/uL Hgb (13.0-17.5) gm/dL Hct (39.0-53.0) % RDW (11.5-15.5) % Neutrophils # (1.3-7.7) k/uL Lymphocytes # (1.0-4.8) k/uL ABG pH 7.34 L (7.35-7.45) ABG pO2 331 H (83-108) mmHg ABG Total CO2 25 H (19-24) mmol/L ABG O2 Saturation 100.0 H 97.4 H (94-97) % VBG HCO3 (24-28) mmol/L Sodium (137-145) mmol/L Chloride (98-107) mmol/L BUN (9-20) mg/dL Creatinine (0.66-1.25) mg/dL Glucose (74-99) mg/dL POC Glucose (mg/dL) 158 H (75-99) mg/dL Calcium (8.4-10.2) mg/dL AST (17-59) U/L ALT (4-49) U/L CK-MB (CK-2) (0.0-2.4) ng/mL Troponin I (0.000-0.034) ng/mL 06/25/20 06/25/20 Range/Units 05:37 05:37 WBC 17.3 H (3.8-10.6) k/uL RBC 3.92 L (4.30-5.90) m/uL Hgb 12.6 L (13.0-17.5) gm/dL Hct 38.0 L (39.0-53.0) % RDW 15.8 H (11.5-15.5) % Neutrophils # 15.9 H (1.3-7.7) k/uL Lymphocytes # 0.5 L (1.0-4.8) k/uL ABG pH (7.35-7.45) ABG pO2 (83-108) mmHg ABG Total CO2 (19-24) mmol/L ABG O2 Saturation (94-97) % VBG HCO3 (24-28) mmol/L Sodium 132 L (137-145) mmol/L Chloride 96 L (98-107) mmol/L BUN 33 H (9-20) mg/dL Creatinine 4.61 H (0.66-1.25) mg/dL Glucose 166 H (74-99) mg/dL POC Glucose (mg/dL) (75-99) mg/dL Calcium 7.9 L (8.4-10.2) mg/dL AST 119 H (17-59) U/L ALT 102 H (4-49) U/L CK-MB (CK-2) (0.0-2.4) ng/mL Troponin I (0.000-0.034) ng/mL
--- NOTE | 2020-06-25 10:55 | ECHOF ---
Referral Reason:S/p NSTEMI. Evaluate for aortic stenosis MEASUREMENTS -------- HEIGHT: 180.3 cm WEIGHT: 97.1 kg BP: 107/43 IVSd: 1.1 cm (0.6 - 1.1) LVIDd: 4.9 cm (3.9 - 5.3) LVPWd: 1.3 cm (0.6 - 1.1) IVSs: 1.7 cm LVIDs: 4.4 cm LVPWs: 1.7 cm LAESV Index (A-L): 37.98 ml/m MV EXCURSION: 16.659 mm (> 18.000) MV EF SLOPE: 66 mm/s (70 - 150) EPSS: 1.4 cm MV E Alexandre: 1.27 m/s MV DecT: 125 ms MV A Alexandre: 0.63 m/s MV E/A Ratio: 2.01 AV maxP.16 mmHg AV meanP.57 mmHg RAP: 5.00 mmHg RVSP: 49.94 mmHg FINDINGS -------- This was a technically adequate study. The left ventricular size is normal. There is borderline concentric left ventricular hypertrophy. There is severe global hypokinesis of LV . Overall left ventricular systolic function is severely impaired with, an EF between 20 - 25 %. Increased LAP Grade 3 Diastolic Dysfunction. The right ventricle is normal in size. LA is moderately dilated 34-39 ml/m2 The right atrial size is normal. Lumason used Peak/mean gradient across the Aortic Valve is 44.16mmHg / 32.57mmHg. There is moderate stenosis of the bioprosthetic aortic valve. Aortic valve Vmax of 3.3m/s. Degree of aortic stenosis may be unde restimated due to low flow low gradient. If clinically indicated may consider MOISÉS or low dose dobuta mine stress echo to further evaluate degree of . The mitral valve is normal. Mild mitral regurgitation is present. The tricuspid valve appears structurally normal. Mild tricuspid regurgitation present. There is m ild pulmonary hypertension. The right ventricular systolic pressure, as measured by Doppler, is 49. 94mmHg. There is no pulmonic regurgitation present. The aortic root size is normal. IVC Not well visulized. There is no pericardial effusion. CONCLUSIONS -------- 1. The left ventricular size is normal. 2. There is borderline concentric left ventricular hypertrophy. 3. There is severe global hypokinesis of LV . 4. Overall left ventricular systolic function is severely impaired with, an EF between 20 - 25 %. 5. Increased LAP Grade 3 Diastolic Dysfunction. 6. LA is moderately dilated 34-39 ml/m2 7. Peak/mean gradient across the Aortic Valve is 44.16mmHg / 32.57mmHg. 8. There is moderate stenosis of the bioprosthetic aortic valve. 9. Aortic valve Vmax of 3.3m/s. Degree of aortic stenosis may be underestimated due to low flow low gradient. If clinically indicated may consider MOISÉS or low dose dobutamine stress echo to further vijay luate degree of . 10. Mild mitral regurgitation is present. 11. Mild tricuspid regurgitation present. 12. There is mild pulmonary hypertension. 13. The right ventricular systolic pressure, as measured by Doppler, is 49.94mmHg. 14. There is no pulmonic regurgitation present. 15. There is no pericardial effusion. GOLF STARTER AND RANGER: Rocio Hooker RDCS
--- NOTE | 2020-06-25 12:54 | EST ---
EXERCISE STRESS INDICATION: Evaluation of aortic valve. PROCEDURE: After explaining the procedure to his as well as risks and complication since the patient is intubated and obtaining consent, patient's blood pressure, heart rate were monitored and the probe was introduced into the esophagus without difficulty, images were obtained. Following that, the probe was removed, there was no immediate complication. FINDINGS: Left atrial size is dilated. Left atrial appendage is normal. Left ventricular size appears to be normal. There is evidence of global hypokinesis, estimated ejection fraction 25%-30% with predominantly global hypokinesis. The aortic valve is a bioprosthetic valve with increased thickening. The leaflets were not well visualized. Mitral valve revealed mild thickening of the mitral valve leaflet and mitral annular calcification. Tricuspid valve is normal. Descending thoracic aorta revealed mild atherosclerotic changes. No pericardial effusion was noted. Contrast bubble study revealed minimal fapdz-oy-maog shunting. Doppler pulse wave and color Doppler obtained and revealed a peak gradient across the aortic valve was 60 mmHg with a mean of 30 mmHg. Mild eccentric aortic regurgitation was noted. Moderate severe mitral regurgitation and moderate tricuspid regurgitation were noted in the right ventricle systolic pressure was 48 multi consistent with mild pulmonary hypertension. There is evidence of oyvt-tz-yljha shunting so patent foramina ovale. CONCLUSION: 1. Dilated left atrium with normal appearance of the left atrial appendage. 2. Severe global hypokinesis. 3. Bioprosthetic aortic valve with evidence of mild aortic regurgitation, severe aortic regurgitation with a mean gradient of 30 mmHg and a peak of 60 mmHg. 4. Moderate to severe mitral regurgitation with moderate tricuspid regurgitation. 5. Mild pulmonary hypertension. 6. Evidence of patent foramina ovale with predominantly rrdl-[id number]-pwzdm shunting. 7. No pericardial effusion. MMODL / IJN: [id number] /
[2020-06-25 12:59] LABS: Glucose,Whole Blood 197 mg/dL (75-99)
[2020-06-25] MEDS: METOPROLOL TARTRATE 25 MG TAB PO SCH ×2 (12:59→20:44)
[2020-06-25] MEDS: INSULIN ASPART (NovoLOG) 100 UNIT/ML VIAL SQ SCH ×2 (13:01→17:40)
[2020-06-25] MEDS: ASPIRIN 81 MG PO SCH (13:02)
[2020-06-25] MEDS: CLOPIDOGREL 75 MG TAB PO SCH (13:02)
[2020-06-25] MEDS: ATORVASTATIN 80 MG TAB PO SCH (13:02)
[2020-06-25] MEDS: CHLORHEXIDINE GLUCONATE 15 ML CUP MUCOUS MEM SCH ×2 (13:02→21:16)
[2020-06-25] MEDS: LEVOTHYROXINE 50 MCG TAB PO SCH (13:04)
[2020-06-25] MEDS: NOREPINEPHRINE 32 MG in SODIUM CHLORIDE 0.9% 218 ML IV SCH ×2 (13:04→19:18)
--- NOTE | 2020-06-25 13:06 | P.NPCON ---
History of Present Illness - Reason for Consult end stage renal disease - History of Present Illness Reason for consultation: End-stage renal disease History of present illness: Patient is a 65-year-old male seen in renal consultation for end-stage renal disease. He is maintained on hemodialysis on Sunday schedule. Patient was just discharged from the hospital about 2 days ago. At that time he had a stent placed to the RCA and subsequently had a cardiac arrest. He was intubated but then subsequently recovered. He was discharged on Sunday after he completed dialysis. He missed Sunday's appointment but then did go to dialysis yesterday and tolerated it well. Last night the patient developed chest pain or shortness of breath and came back to the hospital. He underwent c ardiac catheterization which revealed no acute changes. He is noted to be in cardiogenic shock. He is currently on Levophed. He is undergoing MOISÉS. He is currently intubated on 40% FiO2. Echocardiogram revealed ejection fraction of 20-25%. He underwent urgent hemodialysis overnight for fluid overload. Underwent 2.3 L of attrition. Vital signs are stable. Currently on vasopressor support. General: The patient appeared well nourished and normally developed. HEENT: Head exam is unremarkable. Intubated. LUNGS: Breath sounds decreased. HEART: Rate and Rhythm are regular. ABDOMEN: Soft, nontender. EXTREMITITES: 2+ edema. Past Medical History Past Medical History: Coronary Artery Disease (CAD), Chest Pain / Angina, Heart Failure, Diabetes Mellitus, Eye Disorder, Hyperlipidemia, Hypertension, Myocardial Infarction (MS), Osteoarthritis (OA), Renal Disease Additional Past Medical History / Comment(s): IDDM type I with insulin pump, neuropathy bilateral legs, ESRD with hemodialysis M,W,F, normocytic anemia, pulmonary edema, ischemic heart disease, arthritis bilateral hands, past L eye ocular palsy-resolved. Last Myocardial Infarction Date:: 03/04/18 History of Any Multi-Drug Resistant Organisms: None Reported Past Surgical History: Cardiac Valve Replacement, Coronary Bypass/CABG, Heart Catheterization, Heart Catheterization With Stent Additional Past Surgical History / Comment(s): AVF R forearm, 2015 aortic Valve replacement (swine), PCI with stents, CABG twice-first surgery in [address] [facility] and 2nd surgery around 2012 at [place] with post op infection with surgery, umbilical hernia repair, colonoscopy, catataract bilaterally with lens implants, thyroid surgery. Past Anesthesia/Blood Transfusion Reactions: No Reported Reaction Additional Past Anesthesia/Blood Transfusion Reaction / Comment(s): Pt has received blood in past without reaction. Date of Last Stent Placement:: 03/04/18 Past Psychological History: No Psychological Hx Reported Smoking Status: Never smoker Past Alcohol Use History: None Reported Past Drug Use History: None Reported - Past Family History Mother Family Medical History: Cancer, Renal Disease Additional Family Medical History / Comment(s): Mother is . Pt does not recall type of cancer. Father Family Medical History: No Reported History Additional Family Medical History / Comment(s): Pt states father is healthy and is in his mid-late 80s. Medications and Allergies Home Medications Medication Instructions Recorded Confirmed Type INSULIN LISPRO (For Pump) [humaLOG See Protocol SQ-PUMP CONTINUOUS 03/30/17 06/24/20 History (For Pump)] Ranolazine [Ranexa] 1,000 mg PO DAILY 03/30/17 06/24/20 History lisinopriL [Zestril] 10 mg PO DAILY 03/30/17 06/24/20 History Isosorbide Mononitrate ER [Imdur] 60 mg PO DAILY 04/11/17 06/24/20 History Dialyvite 1 tab PO DAILY 10/09/17 06/24/20 History Sevelamer [Renvela] 3,200 mg PO AC-TID #100 tab 03/06/18 06/24/20 Rx Clopidogrel [Plavix] 75 mg PO DAILY 09/27/18 06/24/20 History Sevelamer [Renvela] 2,400 mg PO DAILY PRN 10/10/18 06/24/20 History Furosemide [Lasix] 40 mg PO DAILY 06/11/20 06/24/20 History Levothyroxine Sodium [Synthroid] 50 mcg PO DAILY 06/11/20 06/24/20 History Atorvastatin [Lipitor] 80 mg PO DAILY #30 tab 06/22/20 06/24/20 Rx Metoprolol Tartrate [Lopressor] 25 mg PO BID #60 tab 06/22/20 06/24/20 Rx Midodrine [ProAmatine] 5 mg PO TID #90 tablet 06/22/20 06/24/20 Rx Nitroglycerin Sl Tabs [Nitrostat] 0.4 mg SUBLINGUAL Q5M PRN #25 tab 06/22/20 06/24/20 Rx Hydrocortisone [Cortef] See Taper PO DIRECTED 06/24/20 06/24/20 History Allergies Allergy/AdvReac Type Severity Reaction Status Date / Time Penicillins Allergy Anaphylaxis Verified 06/24/20 18:25 Physical Exam Vitals: Vital Signs Temp Pulse Pulse Resp BP BP Pulse Ox 06/25/20 12:30 100 29 H 97 06/25/20 12:00 98.6 F 98 25 H 99 06/25/20 11:30 99 24 99 06/25/20 11:00 98 23 100 06/25/20 10:30 92 23 99 06/25/20 10:00 89 21 90 L 06/25/20 09:30 91 26 H 100 06/25/20 09:00 91 24 111/65 98 06/25/20 08:30 92 24 111/65 99 06/25/20 08:00 98.8 F 94 21 113/60 100 06/25/20 07:30 94 22 113/60 99 06/25/20 07:00 91 20 110/57 99 06/25/20 06:30 92 23 110/57 98 06/25/20 06:00 98.0 F 90 92 22 104/63 107/43 99 06/25/20 05:30 89 22 104/63 99 06/25/20 05:00 90 18 108/59 99 06/25/20 04:30 90 21 108/59 100 06/25/20 04:00 92 23 104/63 100 06/25/20 03:30 95 21 104/63 100 06/25/20 03:00 93 15 100/66 99 06/25/20 02:30 92 19 100/66 99 06/25/20 02:00 98.1 F 91 18 98/58 98 06/25/20 01:30 91 17 107/74 97 06/25/20 01:00 98 13 100/40 92 L 06/25/20 00:30 111 H 16 133/114 77 L 06/25/20 00:00 116 H 22 06/24/20 23:30 93 26 H 125/70 95 06/24/20 23:00 87 22 111/69 98 06/24/20 22:30 87 14 107/61 99 06/24/20 22:12 88 18 06/24/20 18:55 86 18 94/53 97 06/24/20 18:32 86 20 86/57 100 06/24/20 18:00 84 20 91/57 96 06/24/20 17:21 97.9 F 87 20 117/58 96 Intake and Output 06/24/20 06/25/20 06/25/20 22:59 06:59 14:59 Intake Total 321 1012.450 120.97 Output Total 2300 40 Balance 321 -1287.550 80.97 Intake: IV 321 92 0.9 80 pressure bag 12 Intake, IV Titration 1012.450 28.97 Amount Norepinephrine 4 mg In 882.764 28.97 Sodium Chloride 0.9% 250 ml @ 0.05 MCG/KG/MIN 18. 492 mls/hr IV .[id number] [facility] Rx#:[id number] propofoL 1,000 mg In 129.686 Empty Bag 1 bag @ Titrate IV .Q0M [facility] Rx#: [id number] Output: Urine 40 Hemodialysis 2300 Other: Voiding Method Indwelling Catheter Indwelling Catheter Weight 110.9 kg 110.9 kg ABP, PAP, CO, CI - Last 8 Hours Arterial Blood Pressure 98/58 Arterial Blood Pressure 96/49 Arterial Blood Pressure 107/52 Arterial Blood Pressure 114/54 Arterial Blood Pressure 95/47 Arterial Blood Pressure 87/37 Arterial Blood Pressure 91/41 Arterial Blood Pressure 88/40 Arterial Blood Pressure 90/40 Arterial Blood Pressure 101/45 Arterial Blood Pressure 104/44 Arterial Blood Pressure 101/42 Arterial Blood Pressure 112/44 Arterial Blood Pressure 103/42 Arterial Blood Pressure 96/40 Arterial Blood Pressure 96/40 Results - Lab Results Most recent lab results ABG pH 7.40 (7.35-7.45) 06/25/20 05:09 ABG pCO2 37 mmHg (35-45) 06/25/20 05:09 ABG pO2 91 mmHg (83-108) 06/25/20 05:09 ABG HCO3 23 mmol/L (21-25) 06/25/20 05:09 ABG O2 Saturation 97.4 % (94-97) H 06/25/20 05:09 Calcium 7.9 mg/dL (8.4-10.2) L 06/25/20 05:37 Magnesium 2.0 mg/dL (1.6-2.3) 06/25/20 05:37 06/25/20 05:37 06/25/20 05:37 Assessment and Plan Plan: Assessment: 1. End-stage renal disease maintained on hemodialysis on Sunday schedule. 2. Acute on chronic systolic CHF with ejection fraction of 20-25% with severe aortic regurgitation, moderate to severe mitral regurgitation, moderate tricuspid regurgitation. 3. Fluid overload. 4. History of coronary artery disease status post CABG with recent stenting of the right coronary artery. 5. Cardiogenic shock maintained on Levophed. 6. Chronic kidney disease mineral bone disease. Plan: Hemodialysis tomorrow with goal 2-3L ultrafiltration. Wean FiO2 and vasopressors. Thank you for the consultation. I will continue to follow the patient with you during his hospital stay.
--- NOTE | 2020-06-25 15:27 | P.CNPUL ---
History of Present Illness Consult date: 06/25/20 Reason for consult: dyspnea History of present illness: 65-year-old male patient who came into the hospital because of an acute chest pain. Unstable angina was suspected as the patient has known history of cardiac disease and coronary artery disease and the patient underwent a recent coronary intervention and stenting of the RCA by Dr. Cordero and this was done on 06/15/2020. Note that post cardiac catheterization the patient also had a brief cardiopulmonary arrest with a PEA rhythm and the patient was resuscitated successfully without any signs of anoxic encephalopathy and the patient was discharged home. Noted the patient had developed carotid myopathy and there was a drop in the patient's left and ejection fraction of 25%. This was not explained on the basis of coronary artery disease and expect cause for his drop in the LV has not been established. The patient is known to have CAD and he has undergone previous bypass surgery. His MCDERMOTT to LAD and this was done 2000. He has undergone previous stenting to the circumflex on previous evaluations. Note that during this current admission, the patient had chest pain. Cardiac enzymes were essentially downtrending from recent PA and the troponin was noted to 0.7. The patient was taken to catheterization and the patient was found to have a patent MCDERMOTT to LAD, patent stent in the RCA. No acute intervention was done. The patient had a right coronary system with a mid 40% stenosis distal to the stent. There was mild disease in the PDA and PLV. Circumflex system was p ercent occluded. The pulmonary capillary wedge pressure was 38. PA pressures were 76/31. Cardiac output was at 3.88. Following that, the patient was sent to the intensive care unit. Once in ICU, the patient was found to be in acute respiratory distress. He was severely hypoxic and he was becoming more unresponsive and he was breathing in the high 40s. At that point, the patient was intubated and placed on mechanical ventilation. Post intubation, the patient became profoundly hypotensive and the patient is currently requiring high-dose pressors for hemodynamic support. The patient currently is an assist- control mode of ventilation at the rate of 18 with a tidal volume of 500 and FiO2 of 40% with a PEEP of 5. Norepinephrine infusion is running at 0.5 g per KG per minute. The patient is sedated with propofol at 50 mg per KG per minute. IV fluids are currently at KVO. The MOISÉS was done today and the patient had evidence of global hypokinesis with an ejection fraction of 25-30%. The aortic valve was bioprosthetic and a peak gradient across the aortic valve was 60 with a mean gradient of 30 mmHg. There was moderate to severe mitral regurgitation and moderate tricuspid regurgitation and the right ventricular systolic pressure was estimated to be 48. There was dilatation of the r left atrium along with mild aortic regurgitation at the level of the bioprosthetic aortic valve and moderate severe mitral regurgitation and mild pulmonary hypertension. No evidence of any xpja-ke-nerot shunting and there was no evidence of any pericardial effusion. Note that overnight, nephrology was consulted and the patient was given a session of dialysis today total of 2 L of ultrafiltration per chest x-ray still showing evidence of CHF and cardiomegaly and pulmonary edema. Review of Systems ROS unobtainable: due to endotracheal tube Past Medical History Past Medical History: Coronary Artery Disease (CAD), Chest Pain / Angina, Heart Failure, Diabetes Mellitus, Eye Disorder, Hyperlipidemia, Hypertension, Myocardial Infarction (PA), Osteoarthritis (OA), Renal Disease Additional Past Medical History / Comment(s): IDDM type I with insulin pump, neuropathy bilateral legs, ESRD with hemodialysis M,W,F, normocytic anemia, pulmonary edema, ischemic heart disease, arthritis bilateral hands, past L eye ocular palsy-resolved. Last Myocardial Infarction Date:: 03/04/18 History of Any Multi-Drug Resistant Organisms: None Reported Past Surgical History: Cardiac Valve Replacement, Coronary Bypass/CABG, Heart Catheterization, Heart Catheterization With Stent Additional Past Surgical History / Comment(s): AVF R forearm, 2015 aortic Valve replacement (swine), PCI with stents, CABG twice-first surgery in 2000 at [facility] and 2nd surgery around 2012 at [place] with post op infection with surgery, umbilical hernia repair, colonoscopy, catataract bilaterally with lens implants, thyroid surgery. Past Anesthesia/Blood Transfusion Reactions: No Reported Reaction Additional Past Anesthesia/Blood Transfusion Reaction / Comment(s): Pt has received blood in past without reaction. Date of Last Stent Placement:: 03/04/18 Past Psychological History: No Psychological Hx Reported Smoking Status: Never smoker Past Alcohol Use History: None Reported Past Drug Use History: None Reported - Past Family History Mother Family Medical History: Cancer, Renal Disease Additional Family Medical History / Comment(s): Mother is . Pt does not recall type of cancer. Father Family Medical History: No Reported History Additional Family Medical History / Comment(s): Pt states father is healthy and is in his mid-late 80s. Medications and Allergies Home Medications Medication Instructions Recorded Confirmed Type INSULIN LISPRO (For Pump) [humaLOG See Protocol SQ-PUMP CONTINUOUS 03/30/17 06/24/20 History (For Pump)] Ranolazine [Ranexa] 1,000 mg PO DAILY 03/30/17 06/24/20 History lisinopriL [Zestril] 10 mg PO DAILY 03/30/17 06/24/20 History Isosorbide Mononitrate ER [Imdur] 60 mg PO DAILY 04/11/17 06/24/20 History Dialyvite 1 tab PO DAILY 10/09/17 06/24/20 History Sevelamer [Renvela] 3,200 mg PO AC-TID #100 tab 03/06/18 06/24/20 Rx Clopidogrel [Plavix] 75 mg PO DAILY 09/27/18 06/24/20 History Sevelamer [Renvela] 2,400 mg PO DAILY PRN 10/10/18 06/24/20 History Furosemide [Lasix] 40 mg PO DAILY 06/11/20 06/24/20 History Levothyroxine Sodium [Synthroid] 50 mcg PO DAILY 06/11/20 06/24/20 History Atorvastatin [Lipitor] 80 mg PO DAILY #30 tab 06/22/20 06/24/20 Rx Metoprolol Tartrate [Lopressor] 25 mg PO BID #60 tab 06/22/20 06/24/20 Rx Midodrine [ProAmatine] 5 mg PO TID #90 tablet 06/22/20 06/24/20 Rx Nitroglycerin Sl Tabs [Nitrostat] 0.4 mg SUBLINGUAL Q5M PRN #25 tab 06/22/20 06/24/20 Rx Hydrocortisone [Cortef] See Taper PO DIRECTED 06/24/20 06/24/20 History Allergies Allergy/AdvReac Type Severity Reaction Status Date / Time Penicillins Allergy Anaphylaxis Verified 06/24/20 18:25 Physical Exam Vitals: Vital Signs Temp Pulse Pulse Resp BP BP Pulse Ox 06/25/20 12:30 100 29 H 97 06/25/20 12:00 98.6 F 98 25 H 99 06/25/20 11:30 99 24 99 06/25/20 11:00 98 23 100 06/25/20 10:30 92 23 99 06/25/20 10:00 89 21 90 L 06/25/20 09:30 91 26 H 100 06/25/20 09:00 91 24 111/65 98 06/25/20 08:30 92 24 111/65 99 06/25/20 08:00 98.8 F 94 21 113/60 100 06/25/20 07:30 94 22 113/60 99 06/25/20 07:00 91 20 110/57 99 06/25/20 06:30 92 23 110/57 98 06/25/20 06:00 98.0 F 90 92 22 104/63 107/43 99 06/25/20 05:30 89 22 104/63 99 06/25/20 05:00 90 18 108/59 99 06/25/20 04:30 90 21 108/59 100 06/25/20 04:00 92 23 104/63 100 06/25/20 03:30 95 21 104/63 100 06/25/20 03:00 93 15 100/66 99 06/25/20 02:30 92 19 100/66 99 06/25/20 02:00 98.1 F 91 18 98/58 98 06/25/20 01:30 91 17 107/74 97 06/25/20 01:00 98 13 100/40 92 L 06/25/20 00:30 111 H 16 133/114 77 L 06/25/20 00:00 116 H 22 06/24/20 23:30 93 26 H 125/70 95 06/24/20 23:00 87 22 111/69 98 06/24/20 22:30 87 14 107/61 99 06/24/20 22:12 88 18 06/24/20 18:55 86 18 94/53 97 06/24/20 18:32 86 20 86/57 100 06/24/20 18:00 84 20 91/57 96 06/24/20 17:21 97.9 F 87 20 117/58 96 Intake and Output 06/25/20 06/25/20 06/25/20 06:59 14:59 22:59 Intake Total 1012.450 360.157 Output Total 2300 40 Balance -1287.550 320.157 Intake: IV 138 0.9 120 pressure bag 18 Intake, IV Titration 1012.450 222.157 Amount Norepinephrine 4 mg In 882.764 28.97 Sodium Chloride 0.9% 250 ml @ 0.05 MCG/KG/MIN 18. 492 mls/hr IV .[id number] MOMO Rx#:[id number] propofoL 1,000 mg In 129.686 193.187 Empty Bag 1 bag @ Titrate IV .Q0M MOMO Rx#: [id number] Output: Urine 40 Hemodialysis 2300 Other: Voiding Method Indwelling Catheter Indwelling Catheter Weight 110.9 kg ABP, PAP, CO, CI - Last 8 Hours Arterial Blood Pressure 98/58 Arterial Blood Pressure 96/49 Arterial Blood Pressure 107/52 Arterial Blood Pressure 114/54 Arterial Blood Pressure 95/47 Arterial Blood Pressure 87/37 Arterial Blood Pressure 91/41 Arterial Blood Pressure 88/40 Arterial Blood Pressure 90/40 Arterial Blood Pressure 101/45 Arterial Blood Pressure 104/44 Patient is currently intubated on a mechanical ventilator, comfortable and synchronous with the mechanical ventilator. Head exam was generally normal. There was no scleral icterus or corneal arcus. Mucous membranes were moist. Neck was supple and without jugular venous distension, thyromegaly, or carotid bruits. Carotids were easily palpable bilaterally. There was no adenopathy. Lungs sounds are diminished and the patient has some limited bibasilar crackles. Sternum is not quite stable and there is probably some evidence of dehiscence of the sternal wound. The wound is quite wide and not even on examination. Cardiac exam revealed the PMI to be normally situated and sized. The rhythm was regular and no extrasystoles were noted during several minutes of auscultation. The first and second heart sounds were normal and physiologic splitting of the second heart sound was noted. There were no murmurs, rubs, clicks, or gallops. Abdominal exam revealed normal bowel sounds. The abdomen was soft, non-tender, and without masses, organomegaly, or appreciable enlargement of the abdominal aorta. Examination of the extremities revealed easily palpable radial, femoral and pedal pulses. There was no cyanosis, clubbing or edema. There is diminished pulses in all 4 extremities. Minimal trace edema in lower extremities. Neurologically the patient is sedated, comfortable likely distress. Pupils are equal and reactive to light. Grimaces to deep painful stimulation. Results - Laboratory Findings CBC and BMP: 06/25/20 05:37 06/25/20 05:37 ABG ABG pH 7.40 (7.35-7.45) 06/25/20 05:09 ABG pCO2 37 mmHg (35-45) 06/25/20 05:09 ABG pO2 91 mmHg (83-108) 06/25/20 05:09 ABG O2 Saturation 97.4 % (94-97) H 06/25/20 05:09 PT/INR, D-dimer PT 10.9 sec (9.0-12.0) 06/24/20 17:41 INR 1.1 (<1.2) 06/24/20 17:41 Abnormal lab findings: Abnormal Labs 06/24/20 06/24/20 06/24/20 17:41 17:41 17:41 WBC RBC 3.82 L Hgb 12.6 L Hct 36.9 L RDW Neutrophils # 9.0 H Lymphocytes # 0.6 L ABG pH ABG pO2 ABG Total CO2 ABG O2 Saturation VBG HCO3 Sodium 132 L Chloride 95 L BUN 37 H Creatinine 5.67 H Glucose 145 H POC Glucose (mg/dL) Calcium 8.3 L AST ALT 103 H CK-MB (CK-2) 11.8 H Troponin I 2.780 H* 06/24/20 06/24/20 06/24/20 19:51 21:34 22:12 WBC RBC Hgb Hct RDW Neutrophils # Lymphocytes # ABG pH ABG pO2 ABG Total CO2 ABG O2 Saturation VBG HCO3 23 L Sodium Chloride BUN Creatinine Glucose POC Glucose (mg/dL) 172 H 153 H Calcium AST ALT CK-MB (CK-2) Troponin I 06/25/20 06/25/20 06/25/20 01:08 05:09 05:36 WBC RBC Hgb Hct RDW Neutrophils # Lymphocytes # ABG pH 7.34 L ABG pO2 331 H ABG Total CO2 25 H ABG O2 Saturation 100.0 H 97.4 H VBG HCO3 Sodium Chloride BUN Creatinine Glucose POC Glucose (mg/dL) 158 H Calcium AST ALT CK-MB (CK-2) Troponin I 06/25/20 06/25/20 06/25/20 05:37 05:37 12:57 WBC 17.3 H RBC 3.92 L Hgb 12.6 L Hct 38.0 L RDW 15.8 H Neutrophils # 15.9 H Lymphocytes # 0.5 L ABG pH ABG pO2 ABG Total CO2 ABG O2 Saturation VBG HCO3 Sodium 132 L Chloride 96 L BUN 33 H Creatinine 4.61 H Glucose 166 H POC Glucose (mg/dL) 197 H Calcium 7.9 L AST 119 H ALT 102 H CK-MB (CK-2) Troponin I - Diagnostic Findings Chest x-ray: image reviewed Assessment and Plan Plan: 1 acute hypoxic respiratory failure secondary to pulmonary edema/fluid overload. The patient is currently intubated on a mechanical ventilator. The patient was given a session of hemodialysis with a total of 2 L of ultrafiltration. Chest x-ray was noted. Blood gases was noted. 2 severe cardiomyopathy with an ejection fraction of 25%. The patient is global hypokinesis. The patient also has moderate severe mitral regurgitation with mild aortic regurgitation/stenosis and secondary pulmonary hypertension. Pulmonary artery pressures are quite elevated and the cardiac output is low at 3.9. 3 hypotension, likely secondary component of cardiogenic shock 4 coronary artery disease with a recent non-STEMI. The patient underwent cardiac catheterization and stenting of the RCA. The patient during that process had a brief cardiac pulmonary arrest with a PEA arrest and the patient was resuscitated adequately. During this current admission, the patient had a repeat cardiac catheterization and stenting in the RCA was patent. The patient is chronically occluded circumflex and patent MCDERMOTT to LAD 5 history of coronary artery bypass surgery 6 and stage renal disease on hemodialysis 3 times a week 7 history of aortic valve replacement with some degree of stenosis which is mild based on the most recent MOISÉS 8 insulin-dependent diabetes mellitus 9 history of chronic atrial fibrillation 10 hyperlipidemia 11 BPH 12 chronic anemia 13 diabetic peripheral neuropathy 14 consider sternal wound dehiscence plan Continue vent support IV fluids to KVO The patient is on high doses of pressors with norepinephrine infusion this will be gradually weaned off Continue aspirin and Plavix Hold metoprolol as the patient is currently hemodynamically unstable and hypotensive Cardiac enzymes were downtrending and the repeat cardiac catheter report was noted Continue hemodialysis optimize the volume status Keep the patient intubated for another 24 hours We'll continue to follow make further recommendations based on the progress. Condition is critical. A triple lumen catheter and also established for pressor use and hemodynamic support
--- NOTE | 2020-06-25 15:30 | P.PCN ---
Date of Procedure: 06/25/20 Preoperative Diagnosis: Cardiogenic shock Postoperative Diagnosis: Cardiogenic shock Procedure(s) Performed: Insertion of a triple-lumen catheter Anesthesia: local Surgeon: Elham Epps Pathology: other Condition: critical Disposition: ICU Operative Findings: Indication: Hemodynamic monitoring/Intravenous access. A time-out was completed verifying correct patient, procedure, site, positioning, and implant(s) or special equipment if applicable. The patient was placed in a dependent position appropriate for central line placement based on the vein to be cannulated. The patients left shoulder was prepped and draped in sterile fashion. 1% Lidocaine was used to anesthetize the surrounding skin area. A triple lumen 9F Cordis catheter was introduced into the left subclavian vein using Seldinger technique. The catheter was threaded smoothly over the guide wire and appropriate blood return was obtained. Each lumen of the catheter was evacuated of air and flushed with sterile saline. The catheter was then sutured in place to the skin and a sterile dressing applied. Perfusion to the extremity distal to the point of catheter insertion was checked and found to be adequate. The patient tolerated the procedure well and there were no complications.
[2020-06-25 17:38] LABS: Glucose,Whole Blood 180 mg/dL (75-99)
[2020-06-25] MEDS: HEPARIN SODIUM,PORCINE 5,000 UNIT/ML 1 ML VIAL SQ SCH (21:16)
[2020-06-25 23:59] LABS: Glucose,Whole Blood 167 mg/dL (75-99)
[2020-06-26] MEDS: INSULIN ASPART (NovoLOG) 100 UNIT/ML VIAL SQ SCH ×4 (00:03→18:13)
[2020-06-26] MEDS: NOREPINEPHRINE 32 MG in SODIUM CHLORIDE 0.9% 218 ML IV SCH ×2 (01:24→14:45)
[2020-06-26 04:27] LABS: Basophils # (A) 0.1 k/uL (0-0.2); Basophils % (A) 0 %; Eosinophils % (A) 0 %; HCT 37.2 % (39.0-53.0); HGB 12.5 gm/dL (13.0-17.5); Lymphocytes # (A) 0.9 k/uL (1.0-4.8); Lymphocytes % (A) 7 %; MCH 32.3 pg (25.0-35.0); MCHC 33.5 g/dL (31.0-37.0); MCV 96.2 fL (80.0-100.0); Mean Platelet Volume 7.8; Monocytes # (A) 0.8 k/uL (0-1.0); Monocytes % (A) 6 %; Neutrophils # (A) 11.9 k/uL (1.3-7.7); Neutrophils % (A) 85 %; Platelet Count 234 k/uL (150-450); RBC 3.87 m/uL (4.30-5.90); RDW 15.8 % (11.5-15.5); WBC 13.9 k/uL (3.8-10.6)
[2020-06-26 04:56] LABS: ABG Base Excess -0.5 mmol/L; ABG HCO3 24 mmol/L (21-25); ABG Oxygen Saturation 96.9 % (94-97); ABG PCO2 34 mmHg (35-45); ABG PH 7.45 (7.35-7.45); ABG PO2 94 mmHg (83-108); ABG TCO2 25 mmol/L (19-24)
[2020-06-26 05:04] LABS: Calcium 7.3 mg/dL (8.4-10.2); Potassium 4.9 mmol/L (3.5-5.1)
[2020-06-26 06:44] LABS: Glucose,Whole Blood 166 mg/dL (75-99)
[2020-06-26] MEDS: LEVOTHYROXINE 50 MCG TAB PO SCH (06:46)
--- NOTE | 2020-06-26 07:19 | XR ---
EXAMINATION TYPE: XR chest 1V portable DATE OF EXAM: 06/26/2020 COMPARISON: 06/25/2020 HISTORY: SOB, Follow Up FINDINGS: Indwelling tubes and catheters are unchanged. Progressive airspace infiltrates throughout both lung ruiz small effusions suspected. Stable appearance of the cardio-mediastinal structures at this time. IMPRESSION: 1. Progressive airspace infiltrates throughout both lung ruiz small effusions suspected. Clinical correlation and follow up until resolution is recommended.
[2020-06-26] MEDS ORDERED: PANTOPRAZOLE 40 MG TABLET PO SCH (07:30)
[2020-06-26] MEDS: METOPROLOL TARTRATE 25 MG TAB PO SCH ×2 (09:25→14:43)
[2020-06-26] MEDS: ASPIRIN 81 MG PO SCH (09:46)
[2020-06-26] MEDS: CHLORHEXIDINE GLUCONATE 15 ML CUP MUCOUS MEM SCH ×2 (09:46→21:16)
[2020-06-26] MEDS: HEPARIN SODIUM,PORCINE 5,000 UNIT/ML 1 ML VIAL SQ SCH ×2 (09:46→21:16)
[2020-06-26] MEDS: ATORVASTATIN 80 MG TAB PO SCH (09:46)
[2020-06-26] MEDS: CLOPIDOGREL 75 MG TAB PO SCH (09:46)
[2020-06-26] MEDS: PANTOPRAZOLE 40 MG/10 ML VIAL IVP SCH (09:47)
--- NOTE | 2020-06-26 10:42 | P.PN ---
Subjective Progress Note Date: 06/26/20 HISTORY OF PRESENT ILLNESS 65-year-old male one of my office patient with past medical history of end-stage renal disease Advanced cardiomyopathy, history of diabetes, systolic congestive heart failure, pulmonary hypertension, and multiple other medical problem who is known to have history of coronary disease with MCDERMOTT to the LAD in 2000 and stenting of the circumflex in 2018 recent stenting of the RCA and 06/15/2020 with cardiac arrest after heart catheter on 06-15 with PEA, aortic valve placement back in 2014 at [facility]. Patient left the hospital 2 days ago after long hospitalization for his intubation mechanical ventilation after his cardiac arrest from his heart catheter ended up on mechanical ventilation and vasopressor for many days finally was extubated successfully and done well was taking of vasopressor his hemoglobin was low patient continued having slight chest pain but with controlled with medication. 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 Rivera finding of unchanged coronary artery disease compared to the heart cath and 06/15/2020 with patent RCA, 85 percentile mid LAD stenosis with patent MCDERMOTT to the LAD and known 100% occlusion of the circumflex, patient cardiac output remained 3.9 L/m increased right to left sided pressure, group 2 pulmonary hypertension with pressure over 55 mmHg, also had significant abnormality in the aortic valve with difficult crossing which can be consistent with severe stenosis. Patient finishes procedure successfully was transferred to the ICU for symptoms control his ejection fraction remain less than 25%. 06/25: Patient was discharged to ICU on BiPAP but desatted during the night and became hypotensive. He required intubation and remains on mechanical ventilation with tidal volume 500, FiO2 40, PEEP of 5. Patient is also on norepinephrine. He has been afebrile, heart rate 92, blood pressure 111/65, pulse ox 99% sound engineer is a sinus rhythm. Repeat chest x-ray this morning reveals no large pneumothorax. Diffuse infiltrates and small right pleural effusion similar to earlier exam. Patient had hemodialysis this morning with removal of 2.5 liters. Repeat blood work reveals WBC 17.3, hemoglobin 12.6. Sodium 132, potassium 4.5, chloride 96, CO2 23, BUN 33 and creatinine 4.61. Blood sugar 158. 06/26: Patient remains intubated with tidal volume 500, FiO2 40, PEEP of 5. Patient is also on high-dose norepinephrine and maxed onto per Van. Repeat chest x-ray reveals progressive airspace infiltrates throughout both lung ruiz small effusion suspected. He is scheduled for repeat hemodialysis today. MOSIÉS revealed dilated left atrium with normal appearance of the left atrial appendage. Severe global hypokinesia. Bioprosthetic aortic valve with evidence of mild aortic regurgitation, severe aortic regurgitation with gradient of 30 mmHg with peak of 60 mmHg. Moderate to severe mitral regurgitation with moderate tricuspid regurgitation. Mild pulmonary hypertension. Evidence of patent foramen ovale with predominantly [id number] shunting. No pericardial effusion. REVIEW OF SYSTEMS Unable to obtain due to intubation. PHYSICAL EXAMINATION General Appearance: Alert, cooperative, no distress, appears stated age. Neck HEENT: Supple, no lymphadenopathy, no thyroid enlargement, no carotid bruits. Intubated and on mechanical ventilation and appears comfortable. Lungs: Decreased breath sounds bilaterally with fine rhonchi Chest Wall: no deformity was found on exam, no costochondral pain or discomfort. Heart: Irregular rate and rhythm, S1, S2 positive history positive systolic murmur With JVD. Back: Symmetric, no curvature, ROM normal, no CVA tenderness. Abdomen: Soft, non-tender, bowel sounds active all four quadrants, no masses, no organomegaly. Alberts catheter was small amount of urine. Extremities: Extremities 1-2+ edema decreased pulse bilaterally. Pulses: 2+ and symmetric. Skin: Skin color, texture, tugor normal, no rashes or lesions. Neurologic: Sedated and on mechanical ventilation. ASSESSMENT AND PLAN 1 unstable angina and recurrent chest pain with recent history of myocardial infarction as non-ST WA post angioplasty and stent placement patient continued to be symptomatic at this point patient was admitted to the hospital, heart catheter was performed no change from last time significant finding with multiple coronary a disease along with angioplasty and severe pulmonary hypertension with possible severe aortic stenosis. Continue aspirin, atorvasta tin, Plavix, Lopressor on hold due to hypotension. 2 acute hypoxic respiratory failure requiring intubation and mechanical ventilation. Pulmonary medicine on consult. 3 cardiogenic shock requiring vasopressors. Patient managed in the intensive care unit. Patient is currently on high dose of norepinephrine. 4 end-stage renal disease on hemodialysis 3 times a week. Scheduled for repeat hemodialysis on Sunday. 5 severe ischemic cardiomyopathy with significantly low ejection fraction and c hronic systolic heart failure: Continue medical management and continue to mobilize free fluid consult. 6 pulmonary hypertension on medical management currently. 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 Patient started on insulin scale every 6 hours for now. 8 post aortic valve placement with significant stenosis finding on heart cath patient might need transesophageal echocardiogram for better view of the aortic valve structure. 9 no history of atrial fibrillation per cardiology. 10 hyperlipidemia: Remain on atorvastatin. 11 BPH. Alberts catheter in place. 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 13 GI prophylaxis: Protonix daily. 14 DVT prophylaxis: Will be on anticoagulation. CODE STATUS: Full code. Prognosis guarded DISCHARGE PLAN To be determined. Impression and plan of care have been directed as dictated by the signing physician. Tomasa Atkins nurse practitioner acting as scribe for signing physician. Objective - Vital Signs Vital signs: Vital Signs Temp 98.1 F 06/26/20 08:00 Pulse 75 06/26/20 09:00 Resp 17 06/26/20 09:00 BP 111/65 06/25/20 09:00 Pulse Ox 99 06/26/20 09:00 Intake & Output 06/25/20 06/26/20 06/26/20 18:59 06:59 18:59 Intake Total 645.335 901.246 243.463 Output Total 40 15 0 Balance 605.335 886.246 243.463 Weight 108.2 kg Intake: IV 253 276 69 0.9 220 240 60 pressure bag 33 36 9 Intake, IV Titration 392.335 625.246 174.463 Amount Norepinephrine 32 mg In 70.178 374.787 56.04 Sodium Chloride 0.9% 218 ml @ 0.5 MCG/KG/MIN 25. 992 mls/hr IV .Q9H38M [facility] Rx#:[id number] Norepinephrine 4 mg In 28.97 Sodium Chloride 0.9% 250 ml @ 0.05 MCG/KG/MIN 18. 492 mls/hr IV .[id number] [facility] Rx#:[id number] propofoL 1,000 mg In 293.187 250.459 118.423 Empty Bag 1 bag @ Titrate IV .Q0M [facility] Rx#: [id number] Output: Urine 40 15 0 Other: Voiding Method Indwelling Catheter Indwelling Catheter Indwelling Catheter ABP, PAP, CO, CI - Last Documented Arterial Blood Pressure 107/46 - Labs CBC & Chem 7: 06/26/20 04:16 06/26/20 04:16 Labs: Abnormal Lab Results - Last 24 Hours (Table) 06/25/20 06/25/20 06/25/20 Range/Units 12:57 17:36 23:58 WBC (3.8-10.6) k/uL RBC (4.30-5.90) m/uL Hgb (13.0-17.5) gm/dL Hct (39.0-53.0) % RDW (11.5-15.5) % Neutrophils # (1.3-7.7) k/uL Lymphocytes # (1.0-4.8) k/uL ABG pCO2 (35-45) mmHg ABG Total CO2 (19-24) mmol/L Sodium (137-145) mmol/L BUN (9-20) mg/dL Creatinine (0.66-1.25) mg/dL Glucose (74-99) mg/dL POC Glucose (mg/dL) 197 H 180 H 167 H (75-99) mg/dL Calcium (8.4-10.2) mg/dL 06/26/20 06/26/20 06/26/20 Range/Units 04:16 04:16 04:49 WBC 13.9 H (3.8-10.6) k/uL RBC 3.87 L (4.30-5.90) m/uL Hgb 12.5 L (13.0-17.5) gm/dL Hct 37.2 L (39.0-53.0) % RDW 15.8 H (11.5-15.5) % Neutrophils # 11.9 H (1.3-7.7) k/uL Lymphocytes # 0.9 L (1.0-4.8) k/uL ABG pCO2 34 L (35-45) mmHg ABG Total CO2 25 H (19-24) mmol/L Sodium 132 L (137-145) mmol/L BUN 54 H (9-20) mg/dL Creatinine 6.88 H (0.66-1.25) mg/dL Glucose 164 H (74-99) mg/dL POC Glucose (mg/dL) (75-99) mg/dL Calcium 7.3 L (8.4-10.2) mg/dL 06/26/20 Range/Units 06:43 WBC (3.8-10.6) k/uL RBC (4.30-5.90) m/uL Hgb (13.0-17.5) gm/dL Hct (39.0-53.0) % RDW (11.5-15.5) % Neutrophils # (1.3-7.7) k/uL Lymphocytes # (1.0-4.8) k/uL ABG pCO2 (35-45) mmHg ABG Total CO2 (19-24) mmol/L Sodium (137-145) mmol/L BUN (9-20) mg/dL Creatinine (0.66-1.25) mg/dL Glucose (74-99) mg/dL POC Glucose (mg/dL) 166 H (75-99) mg/dL Calcium (8.4-10.2) mg/dL
--- NOTE | 2020-06-26 13:37 | PN ---
PROGRESS NOTE This gentleman has end-stage renal disease. He has a bioprosthetic aortic valve which has developed significant stenosis. He is currently on a ventilator on a Levophed drip at a fairly high dose. His ejection fraction is low in the less than 25%. Overall prognosis appears to be poor. He had dialysis yesterday with 2.5 L of fluid taken out. He is maintaining sinus rhythm. Blood pressure is acceptable at a moderate dose of Levophed. Physical exam revealed blood pressure of 108, pulse rate of about 70, sinus. JVD is not evident. S1-S2 heard normally. Ejection systolic murmur at the base is audible. Lungs reveal bilateral ventilator assisted breath sounds. The rest of physical exam unchanged. From a cardiac standpoint, plan is to try and wean off Levophed and see how he does. Overall prognosis remains poor. No other specific suggestions. MMCHARLESL / CHERRYN: [id number] /
[2020-06-26 13:41] LABS: Glucose,Whole Blood 173 mg/dL (75-99)
--- NOTE | 2020-06-26 13:50 | P.PN ---
Subjective Patient is seen for follow-up for ESRD. He is on HD MWF. Currently intubated on 40% FiO2. On levophed support. Quite edematous. Tolerated 2.3L UF yesterday. Scheduled for HD today. Vital signs are stable. Currently on vasopressor support. General: The patient appeared well nourished and normally developed. HEENT: Head exam is unremarkable. Intubated. LUNGS: Breath sounds decreased. HEART: Rate and Rhythm are regular. ABDOMEN: Soft, nontender. EXTREMITITES: 2+ edema. Objective - Vital Signs Vital signs: Vital Signs Temp 97.7 F 06/26/20 13:00 Pulse 81 06/26/20 13:30 Resp 24 06/26/20 13:30 BP 111/65 06/25/20 09:00 Pulse Ox 98 06/26/20 13:30 Intake & Output 06/25/20 06/26/20 06/26/20 18:59 06:59 18:59 Intake Total 645.335 901.246 551.906 Output Total 40 15 0 Balance 605.335 886.246 551.906 Weight 108.2 kg 108.2 kg Intake: IV 253 276 161 0.9 220 240 140 pressure bag 33 36 21 Intake, IV Titration 392.335 625.246 312.906 Amount Norepinephrine 32 mg In 70.178 374.787 56.04 Sodium Chloride 0.9% 218 ml @ 0.5 MCG/KG/MIN 25. 992 mls/hr IV .Q9H38M [facility] Rx#:[id number] Norepinephrine 4 mg In 28.97 Sodium Chloride 0.9% 250 ml @ 0.05 MCG/KG/MIN 18. 492 mls/hr IV .[id number] [facility] Rx#:[id number] propofoL 1,000 mg In 293.187 250.459 256.866 Empty Bag 1 bag @ Titrate IV .Q0M [facility] Rx#: [id number] Tube Feeding 48 Other 30 Output: Urine 40 15 0 Other: Voiding Method Indwelling Catheter Indwelling Catheter Indwelling Catheter ABP, PAP, CO, CI - Last Documented Arterial Blood Pressure 93/45 - Labs CBC & Chem 7: 06/26/20 04:16 06/26/20 04:16 Labs: Abnormal Lab Results - Last 24 Hours (Table) 1106/25/20 06/26/20 Range/Units 17:36 23:58 04:16 WBC (3.8-10.6) k/uL RBC (4.30-5.90) m/uL Hgb (13.0-17.5) gm/dL Hct (39.0-53.0) % RDW (11.5-15.5) % Neutrophils # (1.3-7.7) k/uL Lymphocytes # (1.0-4.8) k/uL ABG pCO2 (35-45) mmHg ABG Total CO2 (19-24) mmol/L Sodium 132 L (137-145) mmol/L BUN 54 H (9-20) mg/dL Creatinine 6.88 H (0.66-1.25) mg/dL Glucose 164 H (74-99) mg/dL POC Glucose (mg/dL) 180 H 167 H (75-99) mg/dL Calcium 7.3 L (8.4-10.2) mg/dL 06/26/20 06/26/20 06/26/20 Range/Units 04:16 04:49 06:43 WBC 13.9 H (3.8-10.6) k/uL RBC 3.87 L (4.30-5.90) m/uL Hgb 12.5 L (13.0-17.5) gm/dL Hct 37.2 L (39.0-53.0) % RDW 15.8 H (11.5-15.5) % Neutrophils # 11.9 H (1.3-7.7) k/uL Lymphocytes # 0.9 L (1.0-4.8) k/uL ABG pCO2 34 L (35-45) mmHg ABG Total CO2 25 H (19-24) mmol/L Sodium (137-145) mmol/L BUN (9-20) mg/dL Creatinine (0.66-1.25) mg/dL Glucose (74-99) mg/dL POC Glucose (mg/dL) 166 H (75-99) mg/dL Calcium (8.4-10.2) mg/dL Assessment and Plan Plan: Assessment: 1. End-stage renal disease maintained on hemodialysis on Sunday schedule. 2. Acute on chronic systolic CHF with ejection fraction of 20-25% with severe aortic regurgitation, moderate to severe mitral regurgitation, moderate tricuspid regurgitation. 3. Fluid overload. 4. History of coronary artery disease status post CABG with recent stenting of the right coronary artery. 5. Cardiogenic shock maintained on Levophed. 6. Chronic kidney disease mineral bone disease. 7. Hyponatremia secondary to CKD. Hypervolemic. Plan: Hemodialysis today with goal 2-3L ultrafiltration. Plan for another HD treatment tomorrow. Wean FiO2 and vasopressors.
--- NOTE | 2020-06-26 16:07 | P.PN ---
Subjective Progress Note Date: 06/26/20 65-year-old male patient who came into the hospital because of an acute chest pain. Unstable angina was suspected as the patient has known history of cardiac disease and coronary artery disease and the patient underwent a recent coronary intervention and stenting of the RCA by Dr. Cordero and this was done on 06/15/2020. Note that post cardiac catheterization the patient also had a brief cardiopulmonary arrest with a PEA rhythm and the patient was resuscitated successfully without any signs of anoxic encephalopathy and the patient was discharged home. Noted the patient had developed carotid myopathy and there was a drop in the patient's left and ejection fraction of 25%. This was not explained on the basis of coronary artery disease and expect cause for his drop in the LV has not been established. The patient is known to have CAD and he has undergone previous bypass surgery. His MCDERMOTT to LAD and this was done 2000. He has undergone previous stenting to the circumflex on previous evaluations. Note that during this current admission, the patient had chest pain. Cardiac enzymes were essentially downtrending from recent [place] and the troponin was noted to 0.7. The patient was taken to catheterization and the patient was found to have a patent MCDERMOTT to LAD, patent stent in the RCA. No acute intervention was done. The patient had a right coronary system with a mid 40% stenosis distal to the stent. There was mild disease in the PDA and PLV. Circumflex system was percent occluded. The pulmonary capillary wedge pressure was 38. PA pressures were 76/31. Cardiac output was at 3.88. Following that, the patient was sent to the intensive care unit. Once in ICU, the patient was found to be in acute respiratory distress. He was severely hypoxic and he was becoming more unrespo nsive and he was breathing in the high 40s. At that point, the patient was intubated and placed on mechanical ventilation. Post intubation, the patient became profoundly hypotensive and the patient is currently requiring high-dose pressors for hemodynamic support. The patient currently is an assist-control mode of ventilation at the rate of 18 with a tidal volume of 500 and FiO2 of 40% with a PEEP of 5. Norepinephrine infusion is running at 0.5 g per KG per minute. The patient is sedated with propofol at 50 mg per KG per minute. IV fluids are currently at KVO. The MOISÉS was done today and the patient had evidence of global hypokinesis with an ejection fraction of 25-30%. The aortic valve was bioprosthetic and a peak gradient across the aortic valve was 60 with a mean gradient of 30 mmHg. There was moderate to severe mitral regurgitation and moderate tricuspid regurgitation and the right ventricular systolic pressure was estimated to be 48. There was dilatation of the r left atrium along with mild aortic regurgitation at the level of the bioprosthetic aortic valve and moderate severe mitral regurgitation and mild pulmonary hypertension. No evidence of any [id number] shunting and there was no evidence of any pericardial effusion. Note that overnight, nephrology was consulted and the patient was given a session of dialysis today total of 2 L of ultrafiltration per chest x-ray still showing evidence of CHF and cardiomegaly and pulmonary edema. On 06/26/2020 the patient is being seen for a follow-up. He remains sedated on propofol at 45 g. Remains in cardiogenic shock and the patient is still hypotensive requiring pressors and the patient is on an norepinephrine infusion running at 0.31mcg/kg per minute. IV fluids are still at KVO. The patient underwent hemodialysis yesterday and a second session will be done today with ultrafiltration. He continues to have edema in the lower extremities and the chest x-ray still showing pulmonary edema with cardiomegaly. Nevertheless, the oxygenation itself is improved and the patient is currently on assist control mode at the rate of 60 with either volume of 500 and FiO2 of 40% with a PEEP of 5. The blood gases showed a pH of 7.45 with a pCO2 of 34 and pO2 of 94. The patient will be started on enteral feeding for nutritional support. No fever. He doesn't produce a whole lot of urine output. Hemoglobin is at 12.5. The patient also has a BUN of 54 with a creatinine of 6.8. Calcium level is at 7.3. Discussed the case with nephrology in regards to proceed with another session of hemodialysis today. Objective - Vital Signs Vital signs: Vital Signs Temp 97.7 F 06/26/20 13:00 Pulse 80 06/26/20 14:30 Resp 16 06/26/20 14:30 BP 111/65 06/25/20 09:00 Pulse Ox 98 06/26/20 14:30 Intake & Output 06/25/20 06/26/20 06/26/20 18:59 06:59 18:59 Intake Total 645.335 901.246 707.857 Output Total 40 15 0 Balance 605.335 886.246 707.857 Weight 108.2 kg 108.2 kg Intake: IV 253 276 184 0.9 220 240 160 pressure bag 33 36 24 Intake, IV Titration 392.335 625.246 425.857 Amount Norepinephrine 32 mg In 70.178 374.787 145.640 Sodium Chloride 0.9% 218 ml @ 0.5 MCG/KG/MIN 25. 992 mls/hr IV .Q9H38M [facility] Rx#:[id number] Norepinephrine 4 mg In 28.97 Sodium Chloride 0.9% 250 ml @ 0.05 MCG/KG/MIN 18. 492 mls/hr IV .[id number] [facility] Rx#:[id number] propofoL 1,000 mg In 293.187 250.459 280.217 Empty Bag 1 bag @ Titrate IV .Q0M [facility]OMO Rx#: [id number] Tube Feeding 68 Other 30 Output: Urine 40 15 0 Other: Voiding Method Indwelling Catheter Indwelling Catheter Indwelling Catheter ABP, PAP, CO, CI - Last Documented Arterial Blood Pressure 100/46 - Exam Patient is currently intubated on a mechanical ventilator, comfortable and synchronous with the mechanical ventilator. Head exam was generally normal. There was no scleral icterus or corneal arcus. Mucous membranes were moist. Neck was supple and without jugular venous distension, thyromegaly, or carotid bruits. Carotids were easily palpable bilaterally. There was no adenopathy. Lungs sounds are diminished and the patient has some limited bibasilar crackles. Sternum is not quite stable and there is probably some evidence of dehiscence of the sternal wound. The wound is quite wide and not even on examination. Cardiac exam revealed the PMI to be normally situated and sized. The rhythm was regular and no extrasystoles were noted during several minutes of auscultation. The first and second heart sounds were normal and physiologic splitting of the second heart sound was noted. There were no murmurs, rubs, clicks, or gallops. Abdominal exam revealed normal bowel sounds. The abdomen was soft, non-tender, and without masses, organomegaly, or appreciable enlargement of the abdominal aorta. Examination of the extremities revealed easily palpable radial, femoral and pedal pulses. There was no cyanosis, clubbing or edema. There is diminished pulses in all 4 extremities. Minimal trace edema in lower extremities. Neurologically the patient is sedated, comfortable likely distress. Pupils are equal and reactive to light. Grimaces to deep painful stimulation. - Labs CBC & Chem 7: 06/26/20 04:16 06/26/20 04:16 Labs: Abnormal Lab Results - Last 24 Hours (Table) 06/25/20 06/25/20 06/26/20 Range/Units 17:36 23:58 04:16 WBC (3.8-10.6) k/uL RBC (4.30-5.90) m/uL Hgb (13.0-17.5) gm/dL Hct (39.0-53.0) % RDW (11.5-15.5) % Neutrophils # (1.3-7.7) k/uL Lymphocytes # (1.0-4.8) k/uL ABG pCO2 (35-45) mmHg ABG Total CO2 (19-24) mmol/L Sodium 132 L (137-145) mmol/L BUN 54 H (9-20) mg/dL Creatinine 6.88 H (0.66-1.25) mg/dL Glucose 164 H (74-99) mg/dL POC Glucose (mg/dL) 180 H 167 H (75-99) mg/dL Calcium 7.3 L (8.4-10.2) mg/dL 06/26/20 06/26/20 06/26/20 Range/Units 04:16 04:49 06:43 WBC 13.9 H (3.8-10.6) k/uL RBC 3.87 L (4.30-5.90) m/uL Hgb 12.5 L (13.0-17.5) gm/dL Hct 37.2 L (39.0-53.0) % RDW 15.8 H (11.5-15.5) % Neutrophils # 11.9 H (1.3-7.7) k/uL Lymphocytes # 0.9 L (1.0-4.8) k/uL ABG pCO2 34 L (35-45) mmHg ABG Total CO2 25 H (19-24) mmol/L Sodium (137-145) mmol/L BUN (9-20) mg/dL Creatinine (0.66-1.25) mg/dL Glucose (74-99) mg/dL POC Glucose (mg/dL) 166 H (75-99) mg/dL Calcium (8.4-10.2) mg/dL 06/26/20 Range/Units 13:39 WBC (3.8-10.6) k/uL RBC (4.30-5.90) m/uL Hgb (13.0-17.5) gm/dL Hct (39.0-53.0) % RDW (11.5-15.5) % Neutrophils # (1.3-7.7) k/uL Lymphocytes # (1.0-4.8) k/uL ABG pCO2 (35-45) mmHg ABG Total CO2 (19-24) mmol/L Sodium (137-145) mmol/L BUN (9-20) mg/dL Creatinine (0.66-1.25) mg/dL Glucose (74-99) mg/dL POC Glucose (mg/dL) 173 H (75-99) mg/dL Calcium (8.4-10.2) mg/dL Assessment and Plan Plan: 1 acute hypoxic respiratory failure secondary to pulmonary edema/fluid overload. The patient is currently intubated on a mechanical ventilator. The patient was given a session of hemodialysis with a total of 2 L of ultrafiltration. The patient remains intubated on a mechanical ventilator. The patient continues to have a component of pulmonary edema and his chest x-ray. There is cardiomegaly. We'll continue vent support for now. Chest x-ray was noted. Blood gases were noted. 2 severe cardiomyopathy with an ejection fraction of 25%. The patient is global hypokinesis. The patient also has moderate severe mitral regurgitation with mild aortic regurgitation/stenosis and secondary pulmonary hypertension. Pulmonary artery pressures are quite elevated and the cardiac output is low at 3.9. 3 hypotension, likely secondary component of cardiogenic shock, pressor requirements have improved and the patient is currently on 0.3 g per KG per minute. When the process of further weaning down the pressors. Awaiting another hemodialysis session. 4 coronary artery disease with a recent non-STEMI. The patient underwent cardiac catheterization and stenting of the RCA. The patient during that process had a brief cardiac pulmonary arrest with a PEA arrest and the patient was resuscitated adequately. During this current admission, the patient had a repeat cardiac catheterization and stenting in the RCA was patent. The patient is chronically occluded circumflex and patent MCDERMOTT to LAD 5 history of coronary artery bypass surgery 6 and stage renal disease on hemodialysis 3 times a week 7 history of aortic valve replacement with some degree of stenosis which is mild based on the most recent MOISÉS 8 insulin-dependent diabetes mellitus 9 history of chronic atrial fibrillation 10 hyperlipidemia 11 BPH 12 chronic anemia 13 diabetic peripheral neuropathy 14 consider sternal wound dehiscence plan Continue vent support, no vent changes for today IV fluids to KVO The patient is on high doses of pressors with norepinephrine infusion this will be gradually weaned off, and the patient is currently on 0.31 mg/kg/m. Continue aspirin and Plavix Hold metoprolol as the patient is currently hemodynamically unstable and hypotensive Cardiac enzymes were downtrending and the repeat cardiac catheter report was noted Continue hemodialysis optimize the volume status and another session of he modialysis be done today. Keep the patient intubated for another 24 hours We'll continue to follow make further recommendations based on the progress. Condition is critical. This evaluation was done in more than 30 minutes. Condition is critical for now.
[2020-06-26 17:30] LABS: Glucose,Whole Blood 180 mg/dL (75-99)
[2020-06-26 19:40] LABS: Hepatitis B Surface AB- Quant 596.1 mIU/mL; Hepatitis B Surface Antibody Reactive (Non-Reactive); Hepatitis B Surface Antigen Non-Reactive (Non-Reactive)
[2020-06-26 23:19] LABS: Glucose,Whole Blood 208 mg/dL (75-99)
[2020-06-27] MEDS: INSULIN ASPART (NovoLOG) 100 UNIT/ML VIAL SQ SCH ×5 (00:06→23:37)
[2020-06-27] MEDS: NOREPINEPHRINE 32 MG in SODIUM CHLORIDE 0.9% 218 ML IV SCH ×3 (01:21→21:12)
[2020-06-27 04:56] LABS: ABG Base Excess -3.8 mmol/L; ABG HCO3 21 mmol/L (21-25); ABG Oxygen Saturation 96.6 % (94-97); ABG PCO2 34 mmHg (35-45); ABG PO2 95 mmHg (83-108); ABG TCO2 22 mmol/L (19-24)
[2020-06-27 05:13] LABS: Glucose,Whole Blood 251 mg/dL (75-99)
[2020-06-27 05:18] LABS: Basophils % (A) 0 %; Eosinophils # (A) 0.1 k/uL (0-0.7); Eosinophils % (A) 0 %; HCT 37.9 % (39.0-53.0); HGB 12.4 gm/dL (13.0-17.5); Hypochromasia Slight; Lymphocytes # (A) 0.4 k/uL (1.0-4.8); Lymphocytes % (A) 3 %; MCH 32.2 pg (25.0-35.0); MCHC 32.6 g/dL (31.0-37.0); MCV 98.7 fL (80.0-100.0); Macrocytosis Slight; Mean Platelet Volume 7.9; Monocytes # (A) 0.6 k/uL (0-1.0); Monocytes % (A) 4 %; Neutrophils # (A) 14.7 k/uL (1.3-7.7); Neutrophils % (A) 92 %; Platelet Count 210 k/uL (150-450); RBC 3.84 m/uL (4.30-5.90); RDW 15.8 % (11.5-15.5)
[2020-06-27 05:28] LABS: Calcium 7.4 mg/dL (8.4-10.2); Magnesium 2.2 mg/dL (1.6-2.3); Potassium 4.9 mmol/L (3.5-5.1)
[2020-06-27] MEDS: LEVOTHYROXINE 50 MCG TAB PO SCH (06:32)
--- NOTE | 2020-06-27 07:22 | XR ---
EXAMINATION TYPE: XR chest 1V portable DATE OF EXAM: 06/27/2020 COMPARISON: 06/26/2020 HISTORY: Tube placed TECHNIQUE: Single frontal view of the chest is obtained. FINDINGS: ET and NG tube stable. Central line stable. Diffuse bilateral pleural-parenchymal changes are unchanged. Heart size enlarged. No pneumothorax. IMPRESSION: Stable diffuse pleural-parenchymal changes correlate for ARDS, pulmonary edema or diffus e pneumonia.
[2020-06-27] MEDS ORDERED: CEFEPIME 1 GM in SODIUM CHLORIDE 0.9% 50 ML IVPB ONE (09:00)
[2020-06-27] MEDS ORDERED: CEFEPIME 2 GM in SODIUM CHLORIDE 0.9% 100 ML IVPB SCH (09:00)
[2020-06-27] MEDS: CLOPIDOGREL 75 MG TAB PO SCH (09:35)
[2020-06-27] MEDS: ASPIRIN 81 MG PO SCH (09:35)
[2020-06-27] MEDS: CHLORHEXIDINE GLUCONATE 15 ML CUP MUCOUS MEM SCH ×2 (09:35→20:15)
[2020-06-27] MEDS: ATORVASTATIN 80 MG TAB PO SCH (09:35)
[2020-06-27] MEDS: PANTOPRAZOLE 40 MG/10 ML VIAL IVP SCH (09:36)
[2020-06-27] MEDS: HEPARIN SODIUM,PORCINE 5,000 UNIT/ML 1 ML VIAL SQ SCH ×2 (09:36→20:15)
--- NOTE | 2020-06-27 11:08 | P.PN ---
Subjective Progress Note Date: 06/27/20 HISTORY OF PRESENT ILLNESS 65-year-old male one of my office patient with past medical history of end-stage renal disease Advanced cardiomyopathy, history of diabetes, systolic congestive heart failure, pulmonary hypertension, and multiple other medical problem who is known to have history of coronary disease with MCDERMOTT to the LAD in 2000 and stenting of the circumflex in 2018 recent stenting of the RCA and 06/15/2020 with cardiac arrest after heart catheter on 06-15 with PEA, aortic valve placement back in 2014 at [facility]. Patient left the hospital 2 days ago after long hospitalization for his intubation mechanical ventilation after his cardiac arrest from his heart catheter ended up on mechanical ventilation and vasopressor for many days finally was extubated successfully and done well was taking of vasopressor his hemoglobin was low patient continued having slight chest pain but with controlled with medication. Left the hospital successfully and doing well he was in dialysis today during after dialysis developed to have midsternal chest pain and recurrent angina with severe pain in the midsternal area associated with wide bit cold sweat along with palpitation nausea ended up coming to the emergency department at [facility] found to have significantly elevated troponin at 2.78 with slightly atypical change in EKG with his current symptoms patient was taken to the labor relations specialist by cardiology had heart cath with Dr. Rivera finding of unchanged coronary artery disease compared to the heart cath and 06/15/2020 with patent RCA, 85 percentile mid LAD stenosis with patent MCDERMOTT to the LAD and known 100% occlusion of the circumflex, patient cardiac output remained 3.9 L/m increased right to left sided pressure, group 2 pulmonary hypertension with pressure over 55 mmHg, also had significant abnormality in the aortic valve with difficult crossing which can be consistent with severe stenosis. Patient finishes procedure successfully was transferred to the ICU for symptoms control his ejection fraction remain less than 25%. 06/25: Patient was discharged to ICU on BiPAP but desatted during the night and became hypotensive. He required intubation and remains on mechanical ventilation with tidal volume 500, FiO2 40, PEEP of 5. Patient is also on norepinephrine. He has been afebrile, heart rate 92, blood pressure 111/65, pulse ox 99% classroom monitor is a sinus rhythm. Repeat chest x-ray this morning reveals no large pneumothorax. Diffuse infiltrates and small right pleural effusion similar to earlier exam. Patient had hemodialysis this morning with removal of 2.5 liters. Repeat blood work reveals WBC 17.3, hemoglobin 12.6. Sodium 132, potassium 4.5, chloride 96, CO2 23, BUN 33 and creatinine 4.61. Blood sugar 158. 06/26: Patient remains intubated with tidal volume 500, FiO2 40, PEEP of 5. Patient is also on high-dose norepinephrine and maxed onto per Van. Repeat chest x-ray reveals progressive airspace infiltrates throughout both lung ruiz small effusion suspected. He is scheduled for repeat hemodialysis today. MOISÉS revealed dilated left atrium with normal appearance of the left atrial appendage. Severe global hypokinesia. Bioprosthetic aortic valve with evidence of mild aortic regurgitation, severe aortic regurgitation with gradient of 30 mmHg with peak of 60 mmHg. Moderate to severe mitral regurgitation with moderate tricuspid regurgitation. Mild pulmonary hypertension. Evidence of patent foramen ovale with predominantly [id number] shunting. No pericardial effusion. 06/27: Patient remains intubated and on mechanical ventilation with tidal volume 500, FiO2 40, PEEP of 5. He also remains on propofol and norepinephrine. Blood pressure 103/46, heart rate 80, afebrile. Repeat lab work reveals a BB 616, hemoglobin 12.4, platelet count 210. Sodium 136, potassium 4.9, chloride 102, CO2 20, BUN 15 creatinine 6.32. Patient is scheduled for hemodialysis today with plan to remove 3 L. REVIEW OF SYSTEMS Unable to obtain due to intubation. PHYSICAL EXAMINATION General Appearance: Alert, cooperative, no distress, appears stated age. Neck HEENT: Supple, no lymphadenopathy, no thyroid enlargement, no carotid bruits. Intubated and on mechanical ventilation and appears comfortable. Lungs: Decreased breath sounds bilaterally Chest Wall: no deformity was found on exam, no costochondral pain or discomfort. Heart: Irregular rate and rhythm, S1, S2 positive history positive systolic murmur With JVD. Back: Symmetric, no curvature, ROM normal, no CVA tenderness. Abdomen: Soft, non-tender, bowel sounds active all four quadrants, no masses, no organomegaly. Alberts catheter was small amount of urine. Extremities: Extremities 1-2+ edema decreased pulse bilaterally. Pulses: 2+ and symmetric. Skin: Skin color, texture, tugor normal, no rashes or lesions. Neurologic: Sedated and on mechanical ventilation. ASSESSMENT AND PLAN 1 unstable angina and recurrent chest pain with recent history of myocardial infarction as non-ST MD post angioplasty and stent placement patient continued to be symptomatic at this point patient was admitted to the hospital, heart catheter was performed no change from last time significant finding with multiple coronary a disease along with angioplasty and severe pulmonary hypertension with possible severe aortic stenosis. Continue aspirin, atorvas tatin, Plavix, Lopressor on hold due to hypotension. 2 acute hypoxic respiratory failure requiring intubation and mechanical ventilation secondary to pulmonary edema, acute on chronic systolic heart failure. Pulmonary medicine on consult. Patient is scheduled for dialysis today 3 cardiogenic shock requiring vasopressors. Patient managed in the intensive care unit. Patient is currently on high dose of norepinephrine. 4 end-stage renal disease on hemodialysis 3 times a week. Scheduled for repeat hemodialysis on Sunday. 5 severe ischemic cardiomyopathy with significantly low ejection fraction and chronic systolic heart failure: Continue medical management and continue to mobilize free fluid consult. 6 pulmonary hypertension on medical management currently. 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 Patient started on insulin scale every 6 hours for now. 8 post aortic valve placement with significant stenosis finding on heart cath patient might need transesophageal echocardiogram for better view of the aortic valve structure. 9 no history of atrial fibrillation per cardiology. 10 hyperlipidemia: Remain on atorvastatin. 11 BPH. Alberts catheter in place. 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 13 GI prophylaxis: Protonix daily. 14 DVT prophylaxis: Will be on anticoagulation. CODE STATUS: Full code. Prognosis guarded DISCHARGE PLAN To be determined. Impression and plan of care have been directed as dictated by the signing physician. Tomasa Atkins nurse practitioner acting as scribe for signing physician. Objective - Vital Signs Vital signs: Vital Signs Temp 98.4 F 06/27/20 07:30 Pulse 81 06/27/20 08:00 Resp 22 06/27/20 08:00 BP 119/50 06/26/20 16:25 Pulse Ox 99 06/27/20 08:00 Intake & Output 06/26/20 06/27/20 06/27/20 18:59 06:59 18:59 Intake Total 784.968 5854.937 215.998 Output Total 2700 10 7 Balance -0964.970 8893.937 208.998 Weight 108.2 kg Intake: IV 299 253 46 0.9 260 220 40 pressure bag 39 33 6 Intake, IV Titration 495.971 583.937 122.998 Amount Norepinephrine 32 mg In 145.640 304.780 23.887 Sodium Chloride 0.9% 218 ml @ 0.5 MCG/KG/MIN 25. 992 mls/hr IV .Q9H38M MOMO Rx#:[id number] propofoL 1,000 mg In 350.331 279.157 99.111 Empty Bag 1 bag @ Titrate IV .Q0M MOMO Rx#: [id number] Tube Feeding 98 153 17 Other 60 60 30 Output: Urine 0 10 7 Hemodialysis 2700 Other: Voiding Method Indwelling Catheter Indwelling Catheter Indwelling Catheter ABP, PAP, CO, CI - Last Documented Arterial Blood Pressure 96/45 - Labs CBC & Chem 7: 06/27/20 05:05 06/27/20 05:05 Labs: Abnormal Lab Results - Last 24 Hours (Table) 06/26/20 06/26/20 06/26/20 Range/Units 04:16 13:39 17:28 WBC (3.8-10.6) k/uL RBC (4.30-5.90) m/uL Hgb (13.0-17.5) gm/dL Hct (39.0-53.0) % RDW (11.5-15.5) % Neutrophils # (1.3-7.7) k/uL Lymphocytes # (1.0-4.8) k/uL ABG pCO2 (35-45) mmHg Sodium (137-145) mmol/L Carbon Dioxide (22-30) mmol/L BUN (9-20) mg/dL Creatinine (0.66-1.25) mg/dL Glucose (74-99) mg/dL POC Glucose (mg/dL) 173 H 180 H (75-99) mg/dL Calcium (8.4-10.2) mg/dL Hep Bs Antibody Reactive A (Non-Reactive) 06/26/20 06/27/20 06/27/20 Range/Units 23:17 04:51 05:05 WBC 16.0 H (3.8-10.6) k/uL RBC 3.84 L (4.30-5.90) m/uL Hgb 12.4 L (13.0-17.5) gm/dL Hct 37.9 L (39.0-53.0) % RDW 15.8 H (11.5-15.5) % Neutrophils # 14.7 H (1.3-7.7) k/uL Lymphocytes # 0.4 L (1.0-4.8) k/uL ABG pCO2 34 L (35-45) mmHg Sodium (137-145) mmol/L Carbon Dioxide (22-30) mmol/L BUN (9-20) mg/dL Creatinine (0.66-1.25) mg/dL Glucose (74-99) mg/dL POC Glucose (mg/dL) 208 H (75-99) mg/dL Calcium (8.4-10.2) mg/dL Hep Bs Antibody (Non-Reactive) 06/27/20 06/27/20 Range/Units 05:05 05:12 WBC (3.8-10.6) k/uL RBC (4.30-5.90) m/uL Hgb (13.0-17.5) gm/dL Hct (39.0-53.0) % RDW (11.5-15.5) % Neutrophils # (1.3-7.7) k/uL Lymphocytes # (1.0-4.8) k/uL ABG pCO2 (35-45) mmHg Sodium 136 L (137-145) mmol/L Carbon Dioxide 20 L (22-30) mmol/L BUN 50 H (9-20) mg/dL Creatinine 6.32 H (0.66-1.25) mg/dL Glucose 276 H (74-99) mg/dL POC Glucose (mg/dL) 251 H (75-99) mg/dL Calcium 7.4 L (8.4-10.2) mg/dL Hep Bs Antibody (Non-Reactive)
[2020-06-27 11:37] LABS: Glucose,Whole Blood 264 mg/dL (75-99)
--- NOTE | 2020-06-27 12:44 | P.PN ---
Subjective Patient is seen for follow-up for ESRD. Currently intubated on 40% FiO2. On levophed support. Quite edematous. Tolerated 2.3L UF this morning. Receiving tube feeding. Vital signs are stable. Currently on vasopressor support. General: The patient appeared well nourished and normally developed. HEENT: Head exam is unremarkable. Intubated. LUNGS: Breath sounds decreased. HEART: Rate and Rhythm are regular. ABDOMEN: Soft, nontender. EXTREMITITES: 2+ edema. Objective - Vital Signs Vital signs: Vital Signs Temp 98.0 F 06/27/20 12:00 Pulse 85 06/27/20 12:30 Resp 23 06/27/20 12:30 BP 114/44 06/27/20 11:23 Pulse Ox 100 06/27/20 12:30 Intake & Output 06/26/20 06/27/20 06/27/20 18:59 06:59 18:59 Intake Total 582.362 0111.937 714.761 Output Total 2700 10 2322 Balance -4458.047 5815.937 -1607.239 Weight 108.2 kg 107.9 kg Intake: IV 299 253 238 0.9 260 220 120 Cefepime 1 gm In Sodium 100 Chloride 0.9% 50 ml @ 100 mls/hr IVPB ONCE ONE Rx# :[id number] pressure bag 39 33 18 Intake, IV Titration 495.971 583.937 331.761 Amount Norepinephrine 32 mg In 145.640 304.780 114.929 Sodium Chloride 0.9% 218 ml @ 0.5 MCG/KG/MIN 25. 992 mls/hr IV .Q9H38M [facility] Rx#:[id number] propofoL 1,000 mg In 350.331 279.157 216.832 Empty Bag 1 bag @ Titrate IV .Q0M [facility] Rx#: [id number] Tube Feeding 98 153 85 Other 60 60 60 Output: Urine 0 10 22 Hemodialysis 2700 2300 Other: Voiding Method Indwelling Catheter Indwelling Catheter Indwelling Catheter # Voids 0 ABP, PAP, CO, CI - Last Documented Arterial Blood Pressure 112/48 - Labs CBC & Chem 7: 06/27/20 05:05 06/27/20 05:05 Labs: Abnormal Lab Results - Last 24 Hours (Table) 06/26/20 06/26/2006/26/20 Range/Units 04:16 13:39 17:28 WBC (3.8-10.6) k/uL RBC (4.30-5.90) m/uL Hgb (13.0-17.5) gm/dL Hct (39.0-53.0) % RDW (11.5-15.5) % Neutrophils # (1.3-7.7) k/uL Lymphocytes # (1.0-4.8) k/uL ABG pCO2 (35-45) mmHg Sodium (137-145) mmol/L Carbon Dioxide (22-30) mmol/L BUN (9-20) mg/dL Creatinine (0.66-1.25) mg/dL Glucose (74-99) mg/dL POC Glucose (mg/dL) 173 H 180 H (75-99) mg/dL Calcium (8.4-10.2) mg/dL Hep Bs Antibody Reactive A (Non-Reactive) 06/26/20 06/27/20 06/27/20 Range/Units 23:17 04:51 05:05 WBC 16.0 H (3.8-10.6) k/uL RBC 3.84 L (4.30-5.90) m/uL Hgb 12.4 L (13.0-17.5) gm/dL Hct 37.9 L (39.0-53.0) % RDW 15.8 H (11.5-15.5) % Neutrophils # 14.7 H (1.3-7.7) k/uL Lymphocytes # 0.4 L (1.0-4.8) k/uL ABG pCO2 34 L (35-45) mmHg Sodium (137-145) mmol/L Carbon Dioxide (22-30) mmol/L BUN (9-20) mg/dL Creatinine (0.66-1.25) mg/dL Glucose (74-99) mg/dL POC Glucose (mg/dL) 208 H (75-99) mg/dL Calcium (8.4-10.2) mg/dL Hep Bs Antibody (Non-Reactive) 06/27/20 06/27/20 06/27/20 Range/Units 05:05 05:12 11:35 WBC (3.8-10.6) k/uL RBC (4.30-5.90) m/uL Hgb (13.0-17.5) gm/dL Hct (39.0-53.0) % RDW (11.5-15.5) % Neutrophils # (1.3-7.7) k/uL Lymphocytes # (1.0-4.8) k/uL ABG pCO2 (35-45) mmHg Sodium 136 L (137-145) mmol/L Carbon Dioxide 20 L (22-30) mmol/L BUN 50 H (9-20) mg/dL Creatinine 6.32 H (0.66-1.25) mg/dL Glucose 276 H (74-99) mg/dL POC Glucose (mg/dL) 251 H 264 H (75-99) mg/dL Calcium 7.4 L (8.4-10.2) mg/dL Hep Bs Antibody (Non-Reactive) Microbiology - Last 24 Hours (Table) 06/26/20 21:39 Sputum Culture - Preliminary Sputum Assessment and Plan Plan: Assessment: 1. End-stage renal disease maintained on hemodialysis on Sunday schedule. 2. Acute on chronic systolic CHF with ejection fraction of 20-25% with severe aortic regurgitation, moderate to severe mitral regurgitation, moderate tricuspid regurgitation. 3. Fluid overload. 4. History of coronary artery disease status post CABG with recent stenting of the right coronary artery. 5. Cardiogenic shock maintained on Levophed. 6. Chronic kidney disease mineral bone disease. 7. Hyponatremia secondary to CKD. Hypervolemic. Better. Plan: Tolerated 2.3 L ultrafiltration this morning. Plan for another HD treatment tomorrow. Wean FiO2 and vasopressors.
--- NOTE | 2020-06-27 15:01 | P.PN ---
Subjective Progress Note Date: 06/27/20 65-year-old male patient who came into the hospital because of an acute chest pain. Unstable angina was suspected as the patient has known history of cardiac disease and coronary artery disease and the patient underwent a recent coronary intervention and stenting of the RCA by Dr. Cordero and this was done on 06/15/2020. Note that post cardiac catheterization the patient also had a brief cardiopulmonary arrest with a PEA rhythm and the patient was resuscitated successfully without any signs of anoxic encephalopathy and the patient was discharged home. Noted the patient had developed carotid myopathy and there was a drop in the patient's left and ejection fraction of 25%. This was not explained on the basis of coronary artery disease and expect cause for his drop in the LV has not been established. The patient is known to have CAD and he has undergone previous bypass surgery. His MCDERMOTT to LAD and this was done 2000. He has undergone previous stenting to the circumflex on previous evaluations. Note that during this current admission, the patient had chest pain. Cardiac enzymes were essentially downtrending from recent VT and the troponin was noted to 0.7. The patient was taken to catheterization and the patient was found to have a patent MCDERMOTT to LAD, patent stent in the RCA. No acute intervention was done. The patient had a right coronary system with a mid 40% stenosis distal to the stent. There was mild disease in the PDA and PLV. Circumflex system was percent occluded. The pulmonary capillary wedge pressure was 38. PA pressures were 76/31. Cardiac output was at 3.88. Following that, the patient was sent to the intensive care unit. Once in ICU, the patient was found to be in acute respiratory distress. He was severely hypoxic and he was becoming more unrespo nsive and he was breathing in the high 40s. At that point, the patient was intubated and placed on mechanical ventilation. Post intubation, the patient became profoundly hypotensive and the patient is currently requiring high-dose pressors for hemodynamic support. The patient currently is an assist-control mode of ventilation at the rate of 18 with a tidal volume of 500 and FiO2 of 40% with a PEEP of 5. Norepinephrine infusion is running at 0.5 g per KG per minute. The patient is sedated with propofol at 50 mg per KG per minute. IV fluids are currently at KVO. The MOISÉS was done today and the patient had evidence of global hypokinesis with an ejection fraction of 25-30%. The aortic valve was bioprosthetic and a peak gradient across the aortic valve was 60 with a mean gradient of 30 mmHg. There was moderate to severe mitral regurgitation and moderate tricuspid regurgitation and the right ventricular systolic pressure was estimated to be 48. There was dilatation of the r left atrium along with mild aortic regurgitation at the level of the bioprosthetic aortic valve and moderate severe mitral regurgitation and mild pulmonary hypertension. No evidence of any iilo-xu-yvhna shunting and there was no evidence of any pericardial effusion. Note that overnight, nephrology was consulted and the patient was given a session of dialysis today total of 2 L of ultrafiltration per chest x-ray still showing evidence of CHF and cardiomegaly and pulmonary edema. On 06/26/2020 the patient is being seen for a follow-up. He remains sedated on propofol at 45 g. Remains in cardiogenic shock and the patient is still hypotensive requiring pressors and the patient is on an norepinephrine infusion running at 0.31mcg/kg per minute. IV fluids are still at KVO. The patient underwent hemodialysis yesterday and a second session will be done today with ultrafiltration. He continues to have edema in the lower extremities and the chest x-ray still showing pulmonary edema with cardiomegaly. Nevertheless, the oxygenation itself is improved and the patient is currently on assist control mode at the rate of 60 with either volume of 500 and FiO2 of 40% with a PEEP of 5. The blood gases showed a pH of 7.45 with a pCO2 of 34 and pO2 of 94. The patient will be started on enteral feeding for nutritional support. No fever. He doesn't produce a whole lot of urine output. Hemoglobin is at 12.5. The patient also has a BUN of 54 with a creatinine of 6.8. Calcium level is at 7.3. Discussed the case with nephrology in regards to proceed with another session of hemodialysis today. 06/27/2020, the patient remains sedated on a mechanical ventilator. The patient remains hypotensive requiring pressors although at the lower dose. Norepinephrine infusion is running at 0.4 mg per KG per minute. The patient is sedated with propofol with running at 40 g per KG per minute. IV fluids are at KVO. The patient underwent hemodialysis yesterday with a total of 2.5 L of fluid was removed. Another session of hemodialysis to be done today. Nevertheless, the chest x-ray still showing pulmonary edema and cardiomegaly. There is still edema in lower extremities bilaterally. Another session of hemodialysis to follow today. The patient remains on a mechanical ventilator. The patient is an assist-control mode at the rate of 60 with a tidal volume of 500 and FiO2 of 40% with a PEEP of 5. The patient's blood gases from today shows a pH of 7.4 with a pCO2 of 34 and pO2 95. White cell count at 16. Hemoglobin was at 12.4.. The patient is a creatinine of 6.3 with a BUN of 50. Urine output is minimal at this point in time. The patient was also started enteral feeding for nutritional support. IV antibiotics with empiric coverage will be started with IV cefepime. Objective - Vital Signs Vital signs: Vital Signs Temp 98.0 F 06/27/20 12:00 Pulse 87 06/27/20 14:00 Resp 20 06/27/20 14:00 BP 114/44 06/27/20 11:23 Pulse Ox 100 06/27/20 14:00 Intake & Output 06/26/20 06/27/20 06/27/20 18:59 06:59 18:59 Intake Total 252.105 6670.937 847.876 Output Total 2700 10 2322 Balance -2181.748 1772.937 -1474.124 Weight 108.2 kg 107.9 kg Intake: IV 299 253 284 0.9 260 220 160 Cefepime 1 gm In Sodium 100 Chloride 0.9% 50 ml @ 100 mls/hr IVPB ONCE ONE Rx# :[id number] pressure bag 39 33 24 Intake, IV Titration 495.971 583.937 384.876 Amount Norepinephrine 32 mg In 145.640 304.780 139.881 Sodium Chloride 0.9% 218 ml @ 0.5 MCG/KG/MIN 25. 992 mls/hr IV .Q9H38M [facility] Rx#:[id number] propofoL 1,000 mg In 350.331 279.157 244.995 Empty Bag 1 bag @ Titrate IV .Q0M [facility] Rx#: [id number] Tube Feeding 98 153 119 Other 60 60 60 Output: Urine 0 10 22 Hemodialysis 2700 2300 Other: Voiding Method Indwelling Catheter Indwelling Catheter Indwelling Catheter # Voids 0 ABP, PAP, CO, CI - Last Documented Arterial Blood Pressure 96/45 - Exam Patient is currently intubated on a mechanical ventilator, comfortable and synchronous with the mechanical ventilator. Head exam was generally normal. There was no scleral icterus or corneal arcus. Mucous membranes were moist. Neck was supple and without jugular venous distension, thyromegaly, or carotid bruits. Carotids were easily palpable bilaterally. There was no adenopathy. Lungs sounds are diminished and the patient has some limited bibasilar crackles. Sternum is not quite stable and there is probably some evidence of dehiscence of the sternal wound. The wound is quite wide and not even on examination. Cardiac exam revealed the PMI to be normally situated and sized. The rhythm was regular and no extrasystoles were noted during several minutes of auscultation. The first and second heart sounds were normal and physiologic splitting of the second heart sound was noted. There were no murmurs, rubs, clicks, or gallops. Abdominal exam revealed normal bowel sounds. The abdomen was soft, non-tender, and without masses, organomegaly, or appreciable enlargement of the abdominal aorta. Examination of the extremities revealed easily palpable radial, femoral and pedal pulses. There was no cyanosis, clubbing or edema. There is diminished pulses in all 4 extremities. Minimal trace edema in lower extremities. Neurologically the patient is sedated, comfortable likely distress. Pupils are equal and reactive to light. Grimaces to deep painful stimulation. - Labs CBC & Chem 7: 06/27/20 05:05 06/27/20 05:05 Labs: Abnormal Lab Results - Last 24 Hours (Table) 06/26/20 06/26/20 06/26/20 Range/Units 04:16 17:28 23:17 WBC (3.8-10.6) k/uL RBC (4.30-5.90) m/uL Hgb (13.0-17.5) gm/dL Hct (39.0-53.0) % RDW (11.5-15.5) % Neutrophils # (1.3-7.7) k/uL Lymphocytes # (1.0-4.8) k/uL ABG pCO2 (35-45) mmHg Sodium (137-145) mmol/L Carbon Dioxide (22-30) mmol/L BUN (9-20) mg/dL Creatinine (0.66-1.25) mg/dL Glucose (74-99) mg/dL POC Glucose (mg/dL) 180 H 208 H (75-99) mg/dL Calcium (8.4-10.2) mg/dL Hep Bs Antibody Reactive A (Non-Reactive) 06/27/20 06/27/20 06/27/20 Range/Units 04:51 05:05 05:05 WBC 16.0 H (3.8-10.6) k/uL RBC 3.84 L (4.30-5.90) m/uL Hgb 12.4 L (13.0-17.5) gm/dL Hct 37.9 L (39.0-53.0) % RDW 15.8 H (11.5-15.5) % Neutrophils # 14.7 H (1.3-7.7) k/uL Lymphocytes # 0.4 L (1.0-4.8) k/uL ABG pCO2 34 L (35-45) mmHg Sodium 136 L (137-145) mmol/L Carbon Dioxide 20 L (22-30) mmol/L BUN 50 H (9-20) mg/dL Creatinine 6.32 H (0.66-1.25) mg/dL Glucose 276 H (74-99) mg/dL POC Glucose (mg/dL) (75-99) mg/dL Calcium 7.4 L (8.4-10.2) mg/dL Hep Bs Antibody (Non-Reactive) 06/27/20 06/27/20 Range/Units 05:12 11:35 WBC (3.8-10.6) k/uL RBC (4.30-5.90) m/uL Hgb (13.0-17.5) gm/dL Hct (39.0-53.0) % RDW (11.5-15.5) % Neutrophils # (1.3-7.7) k/uL Lymphocytes # (1.0-4.8) k/uL ABG pCO2 (35-45) mmHg Sodium (137-145) mmol/L Carbon Dioxide (22-30) mmol/L BUN (9-20) mg/dL Creatinine (0.66-1.25) mg/dL Glucose (74-99) mg/dL POC Glucose (mg/dL) 251 H 264 H (75-99) mg/dL Calcium (8.4-10.2) mg/dL Hep Bs Antibody (Non-Reactive) Microbiology - Last 24 Hours (Table) 06/26/20 21:39 Sputum Culture - Preliminary Sputum Assessment and Plan Plan: 1 acute hypoxic respiratory failure secondary to pulmonary edema/fluid overload. The patient is currently intubated on a mechanical ventilator. The patient remains intubated on a mechanical ventilator. The patient has already received a total of 2 sessions of hemodialysis ultrafiltration, initial session were 2 L of fluid was removed, the second session from yesterday 2.5 L of fluid was removed and the third session is to follow today. The chest x-ray still showing volume overload/4 edema. The patient continues to be hypotensive and in shock state. 2 severe cardiomyopathy with an ejection fraction of 25%. The patient is global hypokinesis. The patient also has moderate severe mitral regurgitation with mild aortic regurgitation/stenosis and secondary pulmonary hypertension. Pulmonary artery pressures are quite elevated and the cardiac output is low at 3.9. The patient is pressor dependent this point and the patient is on a lower dose of norepinephrine running at 0.4 mg per KG per minute. 3 hypotension, likely secondary component of cardiogenic shock, pressor requirements have improved and the patient is currently on 0.4 g per KG per minute. When the process of further weaning down the pressors. Awaiting another hemodialysis session. 4 coronary artery disease with a recent non-STEMI. The patient underwent cardiac catheterization and stenting of the RCA. The patient during that process had a brief cardiac pulmonary arrest with a PEA arrest and the patient was resuscitated adequately. During this current admission, the patient had a repeat cardiac catheterization and stenting in the RCA was patent. The patient is chronically occluded circumflex and patent MCDERMOTT to LAD 5 history of coronary artery bypass surgery 6 and stage renal disease on hemodialysis 3 times a week 7 history of aortic valve replacement with some degree of stenosis which is mild based on the most recent MOISÉS 8 insulin-dependent diabetes mellitus 9 history of chronic atrial fibrillation 10 hyperlipidemia 11 BPH 12 chronic anemia 13 diabetic peripheral neuropathy 14 consider sternal wound dehiscence plan Continue vent support, no vent changes for today IV fluids to KVO The patient is on high doses of pressors with norepinephrine infusion this will be gradually weaned off Hemodialysis with ultrafiltration was done yesterday and another session will be done today. Continue aspirin and Plavix Hold metoprolol as the patient is currently hemodynamically unstable and hypotensive I am concerned that there may be an infectious component contributing to this patient's hypotension. I'm going to cover this patient IV cefepime. The patient is profoundly hypotensive and requiring high dose of Prevacid this point in time. Cardiac enzymes were downtrending and the repeat cardiac catheter report was noted Continue hemodialysis optimize the volume status and another session of hemo dialysis be done today. Keep the patient intubated for another 24 hours We'll continue to follow make further recommendations based on the progress. Condition is critical. This evaluation was done in more than 30 minutes. Condition is critical for now. Time with Patient: Greater than 30
--- NOTE | 2020-06-27 16:07 | PN ---
PROGRESS NOTE This gentleman has end-stage renal disease and also significant LV dysfunction. He is on moderate doses of Levophed. His Lopressor has been discontinued. He remains in sinus rhythm at a rate of 85 beats per minute. He has a bioprosthetic aortic valve which has developed significant stenosis. He is still on a ventilator, on moderate doses of Levophed. Ejection fraction is low. He had dialysis today with nearly 3 L of fluid taken out. Blood pressure is stable on the Levophed. Physical exam revealed S1, S2 with ejection systolic murmur at the base. Lungs reveal ventilator assisted breath sounds. Abdomen is soft. Lower extremities reveal bilateral mild to moderate edema. Diminished pulses. From a cardiac standpoint, I agree that we will discontinue the Lopressor and also I am recommending that we cut down the Lipitor to 40 mg daily given his renal dysfunction. We will continue his other medications. Prognosis remains quite poor. MMCHARLESL / CHERRYN: [id number] /
[2020-06-27 18:47] LABS: Glucose,Whole Blood 241 mg/dL (75-99)
[2020-06-27] MEDS: INSULIN DETEMIR (LEVEMIR) 100 UNIT/ML SYR SQ SCH (21:15)
[2020-06-27] MEDS: CEFEPIME 1 GM in SODIUM CHLORIDE 0.9% 50 ML IVPB SCH (21:15)
[2020-06-27 23:23] LABS: Glucose,Whole Blood 245 mg/dL (75-99)
[2020-06-28] MEDS: NOREPINEPHRINE 32 MG in SODIUM CHLORIDE 0.9% 218 ML IV SCH ×3 (00:46→20:22)
[2020-06-28 05:12] LABS: ABG Base Excess -2.6 mmol/L; ABG HCO3 22 mmol/L (21-25); ABG Oxygen Saturation 95.9 % (94-97); ABG PCO2 33 mmHg (35-45); ABG PH 7.43 (7.35-7.45); ABG PO2 84 mmHg (83-108); ABG TCO2 23 mmol/L (19-24); Allen Test Performed? Yes
[2020-06-28 05:27] LABS: Basophils % (A) 0 %; Eosinophils % (A) 0 %; HCT 37.5 % (39.0-53.0); HGB 12.2 gm/dL (13.0-17.5); Hypochromasia Slight; Lymphocytes # (A) 0.7 k/uL (1.0-4.8); Lymphocytes % (A) 4 %; MCH 32.3 pg (25.0-35.0); MCHC 32.5 g/dL (31.0-37.0); MCV 99.5 fL (80.0-100.0); Macrocytosis Slight; Mean Platelet Volume 7.6; Monocytes # (A) 0.7 k/uL (0-1.0); Monocytes % (A) 4 %; Neutrophils # (A) 14.8 k/uL (1.3-7.7); Neutrophils % (A) 90 %; Platelet Count 238 k/uL (150-450); RBC 3.77 m/uL (4.30-5.90); WBC 16.5 k/uL (3.8-10.6)
[2020-06-28 05:40] LABS: Albumin 2.6 g/dL (3.5-5.0); Calcium 7.7 mg/dL (8.4-10.2); Total Protein 5.5 g/dL (6.3-8.2)
[2020-06-28 05:54] LABS: Glucose,Whole Blood 239 mg/dL (75-99)
[2020-06-28 06:06] LABS: Potassium 4.8 mmol/L (3.5-5.1)
[2020-06-28] MEDS: INSULIN ASPART (NovoLOG) 100 UNIT/ML VIAL SQ SCH ×5 (06:10→18:40)
[2020-06-28] MEDS: LEVOTHYROXINE 50 MCG TAB PO SCH (06:10)
--- NOTE | 2020-06-28 08:48 | XR ---
EXAMINATION TYPE: XR chest 1V portable DATE OF EXAM: 06/28/2020 COMPARISON: 06/27/2020 INDICATION: Tube placement TECHNIQUE: Single frontal view of the chest is obtained. FINDINGS: The heart size is enlarged. The pulmonary vasculature is normal. There is diffuse increased lung markings present bilaterally. Findings are worsening from comparison. Endotracheal tube tip is above álvaro. Nasogastric tube transverses the thorax. Left central venous c atheter tip is in the superior vena cava region. EKG leads overlie the chest. IMPRESSION: 1. Patchy bilateral infiltrates, worsening from comparison. Findings are compatible with atypical pne umonia.
[2020-06-28] MEDS ORDERED: DEXTROSE 5% IN WATER 100 ML with AMIODARONE 150 MG IV ONE (09:30)
[2020-06-28] MEDS: CEFEPIME 1 GM in SODIUM CHLORIDE 0.9% 50 ML IVPB SCH ×2 (09:32→20:25)
[2020-06-28] MEDS: HEPARIN SODIUM,PORCINE 5,000 UNIT/ML 1 ML VIAL SQ SCH ×2 (09:36→20:25)
[2020-06-28] MEDS: CHLORHEXIDINE GLUCONATE 15 ML CUP MUCOUS MEM SCH ×2 (09:36→20:25)
[2020-06-28] MEDS: PANTOPRAZOLE 40 MG/10 ML VIAL IVP SCH (09:36)
[2020-06-28] MEDS: ATORVASTATIN 40 MG TAB PO SCH (09:37)
[2020-06-28] MEDS: ASPIRIN 81 MG PO SCH (09:37)
[2020-06-28] MEDS: CLOPIDOGREL 75 MG TAB PO SCH (09:37)
[2020-06-28] MEDS ORDERED: AMIODARONE 360 MG in DEXTROSE 5% IN WATER 200 ML IV ONE ×2 (09:40)
[2020-06-28 11:45] LABS: Glucose,Whole Blood 244 mg/dL (75-99)
--- NOTE | 2020-06-28 11:59 | P.PN ---
Subjective Patient is seen for follow-up for ESRD. Currently intubated on 40% FiO2. On levophed support. Quite edematous. Tolerated 2.3L UF yesterday but had runs of V. tach today when UF was started. Therefore the treatment was stopped. He is on amiodarone drip. Vital signs are stable. Currently on vasopressor support. General: The patient appeared well nourished and normally developed. HEENT: Head exam is unremarkable. Intubated. LUNGS: Breath sounds decreased. HEART: Rate and Rhythm are regular. ABDOMEN: Soft, nontender. EXTREMITITES: 2+ edema. Objective - Vital Signs Vital signs: Vital Signs Temp 98.0 F 06/28/20 09:44 Pulse 86 06/28/20 11:15 Resp 18 06/28/20 11:15 BP 123/55 06/28/20 09:44 Pulse Ox 97 06/28/20 11:15 Intake & Output 06/27/20 06/28/20 06/28/20 18:59 06:59 18:59 Intake Total 884.097 7832.052 309.088 Output Total 2322 0 250 Balance -7237.430 0009.052 59.088 Weight 106.3 kg Intake: IV 376 326 115 0.9 240 240 100 Cefepime 1 gm In Sodium 100 Chloride 0.9% 50 ml @ 100 mls/hr IVPB ONCE ONE Rx# :[id number] Cefepime 1 gm In Sodium 50 Chloride 0.9% 50 ml @ 12. 5 mls/hr IVPB Q12HR [facility] Rx#:[id number] pressure bag 36 36 15 Intake, IV Titration 394.048 426.052 79.088 Amount Norepinephrine 32 mg In 139.881 366.129 55.277 Sodium Chloride 0.9% 218 ml @ 0.5 MCG/KG/MIN 25. 992 mls/hr IV .Q9H38M [facility] Rx#:[id number] propofoL 1,000 mg In 254.167 59.923 23.811 Empty Bag 1 bag @ Titrate IV .Q0M [facility] Rx#: [id number] Tube Feeding 153 255 85 Other 60 90 30 Output: Urine 22 0 0 Hemodialysis 2300 250 Other: Voiding Method Indwelling Catheter Indwelling Catheter Indwelling Catheter # Voids 0 0 0 ABP, PAP, CO, CI - Last Documented Arterial Blood Pressure 111/45 - Labs CBC & Chem 7: 06/28/20 05:00 06/28/20 05:00 Labs: Abnormal Lab Results - Last 24 Hours (Table) 06/27/20 06/27/20 06/28/20 Range/Units 18:45 23:22 05:00 WBC 16.5 H (3.8-10.6) k/uL RBC 3.77 L (4.30-5.90) m/uL Hgb 12.2 L (13.0-17.5) gm/dL Hct 37.5 L (39.0-53.0) % RDW 16.0 H (11.5-15.5) % Neutrophils # 14.8 H (1.3-7.7) k/uL Lymphocytes # 0.7 L (1.0-4.8) k/uL ABG pCO2 (35-45) mmHg BUN (9-20) mg/dL Creatinine (0.66-1.25) mg/dL Glucose (74-99) mg/dL POC Glucose (mg/dL) 241 H 245 H (75-99) mg/dL Calcium (8.4-10.2) mg/dL ALT (4-49) U/L Total Protein (6.3-8.2) g/dL Albumin (3.5-5.0) g/dL 06/28/20 06/28/20 06/28/20 Range/Units 05:00 05:08 05:52 WBC (3.8-10.6) k/uL RBC (4.30-5.90) m/uL Hgb (13.0-17.5) gm/dL Hct (39.0-53.0) % RDW (11.5-15.5) % Neutrophils # (1.3-7.7) k/uL Lymphocytes # (1.0-4.8) k/uL ABG pCO2 33 L (35-45) mmHg BUN 50 H (9-20) mg/dL Creatinine 6.38 H (0.66-1.25) mg/dL Glucose 257 H (74-99) mg/dL POC Glucose (mg/dL) 239 H (75-99) mg/dL Calcium 7.7 L (8.4-10.2) mg/dL ALT 70 H (4-49) U/L Total Protein 5.5 L (6.3-8.2) g/dL Albumin 2.6 L (3.5-5.0) g/dL 06/28/20 Range/Units 11:43 WBC (3.8-10.6) k/uL RBC (4.30-5.90) m/uL Hgb (13.0-17.5) gm/dL Hct (39.0-53.0) % RDW (11.5-15.5) % Neutrophils # (1.3-7.7) k/uL Lymphocytes # (1.0-4.8) k/uL ABG pCO2 (35-45) mmHg BUN (9-20) mg/dL Creatinine (0.66-1.25) mg/dL Glucose (74-99) mg/dL POC Glucose (mg/dL) 244 H (75-99) mg/dL Calcium (8.4-10.2) mg/dL ALT (4-49) U/L Total Protein (6.3-8.2) g/dL Albumin (3.5-5.0) g/dL Microbiology - Last 24 Hours (Table) 06/26/20 21:39 Gram Stain - Preliminary Sputum Sputum Culture - Preliminary Assessment and Plan Plan: Assessment: 1. End-stage renal disease maintained on hemodialysis on Sunday schedule. 2. Acute on chronic systolic CHF with ejection fraction of 20-25% with severe aortic regurgitation, moderate to severe mitral regurgitation, moderate tricuspid regurgitation. 3. Fluid overload. 4. History of coronary artery disease status post CABG with recent stenting of the right coronary artery. 5. Cardiogenic shock maintained on Levophed. 6. Chronic kidney disease mineral bone disease. 7. Hyponatremia secondary to CKD. Hypervolemic. Better. 8. Runs of V. tach maintained on amiodarone drip. Cardiology following. Plan: Tolerated 2.3 L ultrafiltration yesterday. Ultrafiltration held today due to V. tach. Will attempt hemodialysis tomorrow. Wean FiO2 and vasopressors. Overall prognosis guarded. Maintain tube feeding. Check phosphorus level.
--- NOTE | 2020-06-28 12:48 | P.PN ---
<Marianna Paez Kasey - Last Filed: 06/28/20 12:37> Subjective This is a 65-year-old male past medical history significant for end-stage renal disease, coronary artery disease s/p bypass grafting with MCDERMOTT-LAD 2000, PCI circumflex 2017 and RCA 06/15/2020, diabetes mellitus, pulmonary hypertension, valvular heart disease status post aortic valve replacement and dyslipidemia. He is seen and examined resting comfortably on sedation and mechanical ventilation. Dialysis was attempted this morning however he was having frequent ventricular ectopy and ultimately a 25-beat run of VT. Dialysis was stopped at that time. Amiodarone infusion was initiated. Current blood pressure is 109/44 heart rate 78 afebrile maintaining oxygen saturation. Laboratory data reviewed, WBC 16.5, hemoglobin 12.2, platelets 238, sodium 138, potassium 4.8, creatinine 6.38. Magnesium yesterday was 2.2. GENERAL: No acute distress. NECK: Supple without JVD or thyromegaly. LUNGS: Scattered rhonchi. Respiration equal and unlabored. HEART: Regular rate and rhythm with systolic ejection murmur at the base, no rubs or gallops. S1 and S2 heard. Distant heart sounds. EXTREMITIES: Normal range of motion, no edema. No clubbing or cyanosis. Peripheral pulses intact. ASSESSMENT Non-ST elevated myocardial infarction Cardiogenic shock Acute systolic heart failure acute hypoxic respiratory failure Ischemic cardiomyopathy Ventricular tachycardia Valvular heart disease status post aortic valve replacement Diabetes mellitus Hypertension End-stage renal disease on hemodialysis Dyslipidemia PLAN Initiate amiodarone bolus and infusion for VT. Continue supportive care with pressors and dialysis as tolerated. Prognosis guarded. Nurse Practitioner note has been reviewed, I agree with a documented findings and plan of care. Patient was seen and examined. Objective - Vital Signs Vital signs: Vital Signs Temp 98.5 F 06/28/20 12:00 Pulse 78 06/28/20 12:15 Resp 24 06/28/20 12:15 BP 123/55 06/28/20 09:44 Pulse Ox 99 06/28/20 12:15 Intake & Output 06/27/20 06/28/20 06/28/20 18:59 06:59 18:59 Intake Total 533.474 9090.052 397.728 Output Total 2322 0 250 Balance -1389.292 5085.052 147.728 Weight 106.3 kg Intake: IV 376 326 148 0.9 240 240 130 Cefepime 1 gm In Sodium 100 Chloride 0.9% 50 ml @ 100 mls/hr IVPB ONCE ONE Rx# :[id number] Cefepime 1 gm In Sodium 50 Chloride 0.9% 50 ml @ 12. 5 mls/hr IVPB Q12HR [facility] Rx#:[id number] pressure bag 36 36 18 Intake, IV Titration 394.048 426.052 134.728 Amount Norepinephrine 32 mg In 139.881 366.129 110.917 Sodium Chloride 0.9% 218 ml @ 0.5 MCG/KG/MIN 25. 992 mls/hr IV .Q9H38M [facility] Rx#:[id number] propofoL 1,000 mg In 254.167 59.923 23.811 Empty Bag 1 bag @ Titrate IV .Q0M [facility] Rx#: [id number] Tube Feeding 153 255 85 Other 60 90 30 Output: Urine 22 0 0 Hemodialysis 2300 250 Other: Voiding Method Indwelling Catheter Indwelling Catheter Indwelling Catheter # Voids 0 0 0 ABP, PAP, CO, CI - Last Documented Arterial Blood Pressure 109/44 - Labs CBC & Chem 7: 06/28/20 05:00 06/28/20 05:00 Labs: Abnormal Lab Results - Last 24 Hours (Table) 06/27/20 06/27/20 06/28/20 Range/Units 18:45 23:22 05:00 WBC 16.5 H (3.8-10.6) k/uL RBC 3.77 L (4.30-5.90) m/uL Hgb 12.2 L (13.0-17.5) gm/dL Hct 37.5 L (39.0-53.0) % RDW 16.0 H (11.5-15.5) % Neutrophils # 14.8 H (1.3-7.7) k/uL Lymphocytes # 0.7 L (1.0-4.8) k/uL ABG pCO2 (35-45) mmHg BUN (9-20) mg/dL Creatinine (0.66-1.25) mg/dL Glucose (74-99) mg/dL POC Glucose (mg/dL) 241 H 245 H (75-99) mg/dL Calcium (8.4-10.2) mg/dL ALT (4-49) U/L Total Protein (6.3-8.2) g/dL Albumin (3.5-5.0) g/dL 06/28/20 06/28/20 06/28/20 Range/Units 05:00 05:08 05:52 WBC (3.8-10.6) k/uL RBC (4.30-5.90) m/uL Hgb (13.0-17.5) gm/dL Hct (39.0-53.0) % RDW (11.5-15.5) % Neutrophils # (1.3-7.7) k/uL Lymphocytes # (1.0-4.8) k/uL ABG pCO2 33 L (35-45) mmHg BUN 50 H (9-20) mg/dL Creatinine 6.38 H (0.66-1.25) mg/dL Glucose 257 H (74-99) mg/dL POC Glucose (mg/dL) 239 H (75-99) mg/dL Calcium 7.7 L (8.4-10.2) mg/dL ALT 70 H (4-49) U/L Total Protein 5.5 L (6.3-8.2) g/dL Albumin 2.6 L (3.5-5.0) g/dL 06/28/20 Range/Units 11:43 WBC (3.8-10.6) k/uL RBC (4.30-5.90) m/uL Hgb (13.0-17.5) gm/dL Hct (39.0-53.0) % RDW (11.5-15.5) % Neutrophils # (1.3-7.7) k/uL Lymphocytes # (1.0-4.8) k/uL ABG pCO2 (35-45) mmHg BUN (9-20) mg/dL Creatinine (0.66-1.25) mg/dL Glucose (74-99) mg/dL POC Glucose (mg/dL) 244 H (75-99) mg/dL Calcium (8.4-10.2) mg/dL ALT (4-49) U/L Total Protein (6.3-8.2) g/dL Albumin (3.5-5.0) g/dL Microbiology - Last 24 Hours (Table) 06/26/20 21:39 Gram Stain - Preliminary Sputum Sputum Culture - Preliminary <Enrique Rivera - Last Filed: 06/28/20 15:41> Subjective Patient seen and examined. Remains sedated on vent with Levophed infusion, crackles at bases. Would recommend continued supportive care and take off fluid as able with dialysis as he appears fluid overloaded. Continue Levophed with goal MAP of 65, avoid hypertensive episodes given cardiogenic shock. No Bblocker given cardiogenic shock. May consider dobutamine or Milrinone however would like to avoid given nonsustained VT. Continue Amio for NSVT. Aortic valve likely severe with low flow low gradient however will attempt to extubate and then reassess if patient would be a candidate for any advanced heart failure, TAVR workup. Prognosis guarded. Enrique Rivera DO Objective - Vital Signs Vital signs: Vital Signs Temp 98.5 F 06/28/20 12:00 Pulse 78 06/28/20 14:30 Resp 23 06/28/20 14:30 BP 123/55 06/28/20 09:44 Pulse Ox 98 06/28/20 14:30 Intake & Output 06/27/20 06/28/20 06/28/20 18:59 06:59 18:59 Intake Total 003.510 6385.052 599.907 Output Total 2322 0 250 Balance -1675.556 1673.052 349.907 Weight 106.3 kg Intake: IV 376 326 194 0.9 240 240 170 Cefepime 1 gm In Sodium 100 Chloride 0.9% 50 ml @ 100 mls/hr IVPB ONCE ONE Rx# :[id number] Cefepime 1 gm In Sodium 50 Chloride 0.9% 50 ml @ 12. 5 mls/hr IVPB Q12HR [facility] Rx#:[id number] pressure bag 36 36 24 Intake, IV Titration 394.048 426.052 209.907 Amount Norepinephrine 32 mg In 139.881 366.129 110.917 Sodium Chloride 0.9% 218 ml @ 0.5 MCG/KG/MIN 25. 992 mls/hr IV .Q9H38M [facility] Rx#:[id number] propofoL 1,000 mg In 254.167 59.923 98.990 Empty Bag 1 bag @ Titrate IV .Q0M [facility] Rx#: [id number] Tube Feeding 153 255 136 Other 60 90 60 Output: Urine 22 0 0 Hemodialysis 2300 250 Other: Voiding Method Indwelling Catheter Indwelling Catheter Indwelling Catheter # Voids 0 0 0 ABP, PAP, CO, CI - Last Documented Arterial Blood Pressure 105/41 - Labs CBC & Chem 7: 06/28/20 05:00 06/28/20 05:00 Labs: Abnormal Lab Results - Last 24 Hours (Table) 06/27/20 06/27/20 06/28/20 Range/Units 18:45 23:22 05:00 WBC 16.5 H (3.8-10.6) k/uL RBC 3.77 L (4.30-5.90) m/uL Hgb 12.2 L (13.0-17.5) gm/dL Hct 37.5 L (39.0-53.0) % RDW 16.0 H (11.5-15.5) % Neutrophils # 14.8 H (1.3-7.7) k/uL Lymphocytes # 0.7 L (1.0-4.8) k/uL ABG pCO2 (35-45) mmHg BUN (9-20) mg/dL Creatinine (0.66-1.25) mg/dL Glucose (74-99) mg/dL POC Glucose (mg/dL) 241 H 245 H (75-99) mg/dL Calcium (8.4-10.2) mg/dL Magnesium (1.6-2.3) mg/dL ALT (4-49) U/L Total Protein (6.3-8.2) g/dL Albumin (3.5-5.0) g/dL 06/28/20 06/28/20 06/28/20 Range/Units 05:00 05:00 05:08 WBC (3.8-10.6) k/uL RBC (4.30-5.90) m/uL Hgb (13.0-17.5) gm/dL Hct (39.0-53.0) % RDW (11.5-15.5) % Neutrophils # (1.3-7.7) k/uL Lymphocytes # (1.0-4.8) k/uL ABG pCO2 33 L (35-45) mmHg BUN 50 H (9-20) mg/dL Creatinine 6.38 H (0.66-1.25) mg/dL Glucose 257 H (74-99) mg/dL POC Glucose (mg/dL) (75-99) mg/dL Calcium 7.7 L (8.4-10.2) mg/dL Magnesium 2.5 H (1.6-2.3) mg/dL ALT 70 H (4-49) U/L Total Protein 5.5 L (6.3-8.2) g/dL Albumin 2.6 L (3.5-5.0) g/dL 06/28/20 06/28/20 Range/Units 05:52 11:43 WBC (3.8-10.6) k/uL RBC (4.30-5.90) m/uL Hgb (13.0-17.5) gm/dL Hct (39.0-53.0) % RDW (11.5-15.5) % Neutrophils # (1.3-7.7) k/uL Lymphocytes # (1.0-4.8) k/uL ABG pCO2 (35-45) mmHg BUN (9-20) mg/dL Creatinine (0.66-1.25) mg/dL Glucose (74-99) mg/dL POC Glucose (mg/dL) 239 H 244 H (75-99) mg/dL Calcium (8.4-10.2) mg/dL Magnesium (1.6-2.3) mg/dL ALT (4-49) U/L Total Protein (6.3-8.2) g/dL Albumin (3.5-5.0) g/dL Microbiology - Last 24 Hours (Table) 06/26/20 21:39 Gram Stain - Preliminary Sputum Sputum Culture - Preliminary
--- NOTE | 2020-06-28 13:26 | P.PN ---
Subjective Progress Note Date: 06/28/20 HISTORY OF PRESENT ILLNESS 65-year-old male one of my office patient with past medical history of end-stage renal disease Advanced cardiomyopathy, history of diabetes, systolic congestive heart failure, pulmonary hypertension, and multiple other medical problem who is known to have history of coronary disease with MCDERMOTT to the LAD in 2000 and stenting of the circumflex in 2018 recent stenting of the RCA and 06/15/2020 with cardiac arrest after heart catheter on 06-15 with PEA, aortic valve placement back in 2014 at [facility]. Patient left the hospital 2 days ago after long hospitalization for his intubation mechanical ventilation after his cardiac arrest from his heart catheter ended up on mechanical ventilation and vasopressor for many days finally was extubated successfully and done well was taking of vasopressor his hemoglobin was low patient continued having slight chest pain but with controlled with medication. Left the hospital successfully and doing well he was in dialysis today during after dialysis developed to have midsternal chest pain and recurrent angina with severe pain in the midsternal area associated with wide bit cold sweat along with palpitation nausea ended up coming to the emergency department at [facility] found to have significantly elevated troponin at 2.78 with slightly atypical change in EKG with his current symptoms patient was taken to the lab intern by cardiology had heart cath with Dr. Rivera finding of unchanged coronary artery disease compared to the heart cath and 06/15/2020 with patent RCA, 85 percentile mid LAD stenosis with patent MCDERMOTT to the LAD and known 100% occlusion of the circumflex, patient cardiac output remained 3.9 L/m increased right to left sided pressure, group 2 pulmonary hypertension with pressure over 55 mmHg, also had significant abnormality in the aortic valve with difficult crossing which can be consistent with severe stenosis. Patient finishes procedure successfully was transferred to the ICU for symptoms control his ejection fraction remain less than 25%. 06/25: Patient was discharged to ICU on BiPAP but desatted during the night and became hypotensive. He required intubation and remains on mechanical ventilation with tidal volume 500, FiO2 40, PEEP of 5. Patient is also on norepinephrine. He has been afebrile, heart rate 92, blood pressure 111/65, pulse ox 99% threat monitoring analyst is a sinus rhythm. Repeat chest x-ray this morning reveals no large pneumothorax. Diffuse infiltrates and small right pleural effusion similar to earlier exam. Patient had hemodialysis this morning with removal of 2.5 liters. Repeat blood work reveals WBC 17.3, hemoglobin 12.6. Sodium 132, potassium 4.5, chloride 96, CO2 23, BUN 33 and creatinine 4.61. Blood sugar 158. 06/26: Patient remains intubated with tidal volume 500, FiO2 40, PEEP of 5. Patient is also on high-dose norepinephrine and maxed onto per Van. Repeat chest x-ray reveals progressive airspace infiltrates throughout both lung ruiz small effusion suspected. He is scheduled for repeat hemodialysis today. MOISÉS revealed dilated left atrium with normal appearance of the left atrial appendage. Severe global hypokinesia. Bioprosthetic aortic valve with evidence of mild aortic regurgitation, severe aortic regurgitation with gradient of 30 mmHg with peak of 60 mmHg. Moderate to severe mitral regurgitation with moderate tricuspid regurgitation. Mild pulmonary hypertension. Evidence of patent foramen ovale with predominantly [id number] shunting. No pericardial effusion. 06/27: Patient remains intubated and on mechanical ventilation with tidal volume 500, FiO2 40, PEEP of 5. He also remains on propofol and norepinephrine. Blood pressure 103/46, heart rate 80, afebrile. Repeat lab work reveals a BB 616, hemoglobin 12.4, platelet count 210. Sodium 136, potassium 4.9, chloride 102, CO2 20, BUN 15 creatinine 6.32. Patient is scheduled for hemodialysis today with plan to remove 3 L. 06/28: Patient remains in the intensive care unit on mechanical ventilation with tidal volume 500, FiO2 40, PEEP of 5. Patient is also on propofol and norepinephrine. Patient had runs of V. tach this morning while he was on hemodialysis and this had to be discontinued. He has been afebrile, heart rate 84, blood pressure 109/44, pulse ox 97% on mechanical ventilation. Repeat blood work reveals WBC 16.5, hemoglobin 12.2. Electrolytes normal, BUN 15 creatinine 6.38. Blood sugars running in the 200s and 4 units of NovoLog scheduled added. Plan is to call patient's and updated her regarding his current situation. REVIEW OF SYSTEMS Unable to obtain due to intubation. PHYSICAL EXAMINATION General Appearance: Sedated, no distress, appears stated age. Neck HEENT: Supple, no lymphadenopathy, no thyroid enlargement, no carotid bruits. Intubated and on mechanical ventilation and appears comfortable. Lungs: Decreased breath sounds bilaterally Chest Wall: no deformity was found on exam, no costochondral pain or discom fort. Heart: Irregular rate and rhythm, S1, S2 positive history positive systolic murmur With JVD. Back: Symmetric, no curvature, ROM normal, no CVA tenderness. Abdomen: Soft, non-tender, bowel sounds active all four quadrants, no masses, no organomegaly. Alberts catheter was small amount of urine. Extremities: Extremities 1-2+ edema decreased pulse bilaterally. Pulses: 2+ and symmetric. Skin: Skin color, texture, tugor normal, no rashes or lesions. Neurologic: Sedated and on mechanical ventilation. ASSESSMENT AND PLAN 1 unstable angina and recurrent chest pain with recent history of myocardial infarction as non-ST AK post angioplasty and stent placement patient continued to be symptomatic at this point patient was admitted to the hospital, heart cath eter was performed no change from last time significant finding with multiple coronary a disease along with angioplasty and severe pulmonary hypertension with possible severe aortic stenosis. Continue aspirin, atorvastatin, Plavix, Lopressor on hold due to hypotension. 2 acute hypoxic respiratory failure requiring intubation and mechanical ventilation secondary to pulmonary edema, acute on chronic systolic heart failure. Pulmonary medicine on consult. Patient unable to tolerate dialysis today 3 cardiogenic shock requiring vasopressors. Patient managed in the intensive care unit. Patient is currently on high dose of norepinephrine. 4 end-stage renal disease on hemodialysis 3 times a week. Scheduled for repeat hemodialysis on Sunday. 5 severe ischemic cardiomyopathy with significantly low ejection fraction and chronic systolic heart failure: Continue medical management and continue to mobilize free fluid consult. 6 pulmonary hypertension on medical management currently. 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 Patient started on insulin scale every 6 hours for now. 8 post aortic valve placement with significant stenosis finding on heart cath patient might need transesophageal echocardiogram for better view of the aortic valve structure. 9 no history of atrial fibrillation per cardiology. 10 hyperlipidemia: Remain on atorvastatin. 11 BPH. Alberts catheter in place. 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 13 GI prophylaxis: Protonix daily. 14 DVT prophylaxis: Will be on anticoagulation. 15. Episodes of ventricular tachycardia while on dialysis. Dialysis treatment was discontinued. CODE STATUS: Full code. Prognosis guarded. Plan to contact patient's and update regarding patient' s current condition. DISCHARGE PLAN To be determined. Impression and plan of care have been directed as dictated by the signing physician. Tomasa Atkins nurse practitioner acting as scribe for signing physician. Objective - Vital Signs Vital signs: Vital Signs Temp 98.5 F 06/28/20 12:00 Pulse 85 06/28/20 13:00 Resp 24 06/28/20 13:00 BP 123/55 06/28/20 09:44 Pulse Ox 98 06/28/20 13:00 Intake & Output 06/27/20 06/28/20 06/28/20 18:59 06:59 18:59 Intake Total 320.314 6178.052 484.728 Output Total 2322 0 250 Balance -3414.840 8554.052 234.728 Weight 106.3 kg Intake: IV 376 326 171 0.9 240 240 150 Cefepime 1 gm In Sodium 100 Chloride 0.9% 50 ml @ 100 mls/hr IVPB ONCE ONE Rx# :[id number] Cefepime 1 gm In Sodium 50 Chloride 0.9% 50 ml @ 12. 5 mls/hr IVPB Q12HR [facility] Rx#:[id number] pressure bag 36 36 21 Intake, IV Titration 394.048 426.052 134.728 Amount Norepinephrine 32 mg In 139.881 366.129 110.917 Sodium Chloride 0.9% 218 ml @ 0.5 MCG/KG/MIN 25. 992 mls/hr IV .Q9H38M [facility] Rx#:[id number] propofoL 1,000 mg In 254.167 59.923 23.811 Empty Bag 1 bag @ Titrate IV .Q0M [facility] Rx#: [id number] Tube Feeding 153 255 119 Other 60 90 60 Output: Urine 22 0 0 Hemodialysis 2300 250 Other: Voiding Method Indwelling Catheter Indwelling Catheter Indwelling Catheter # Voids 0 0 0 ABP, PAP, CO, CI - Last Documented Arterial Blood Pressure 109/44 - Labs CBC & Chem 7: 06/28/20 05:00 06/28/20 05:00 Labs: Abnormal Lab Results - Last 24 Hours (Table) 06/27/20 06/27/20 06/28/20 Range/Units 18:45 23:22 05:00 WBC 16.5 H (3.8-10.6) k/uL RBC 3.77 L (4.30-5.90) m/uL Hgb 12.2 L (13.0-17.5) gm/dL Hct 37.5 L (39.0-53.0) % RDW 16.0 H (11.5-15.5) % Neutrophils # 14.8 H (1.3-7.7) k/uL Lymphocytes # 0.7 L (1.0-4.8) k/uL ABG pCO2 (35-45) mmHg BUN (9-20) mg/dL Creatinine (0.66-1.25) mg/dL Glucose (74-99) mg/dL POC Glucose (mg/dL) 241 H 245 H (75-99) mg/dL Calcium (8.4-10.2) mg/dL Magnesium (1.6-2.3) mg/dL ALT (4-49) U/L Total Protein (6.3-8.2) g/dL Albumin (3.5-5.0) g/dL 06/28/20 06/28/20 06/28/20 Range/Units 05:00 05:00 05:08 WBC (3.8-10.6) k/uL RBC (4.30-5.90) m/uL Hgb (13.0-17.5) gm/dL Hct (39.0-53.0) % RDW (11.5-15.5) % Neutrophils # (1.3-7.7) k/uL Lymphocytes # (1.0-4.8) k/uL ABG pCO2 33 L (35-45) mmHg BUN 50 H (9-20) mg/dL Creatinine 6.38 H (0.66-1.25) mg/dL Glucose 257 H (74-99) mg/dL POC Glucose (mg/dL) (75-99) mg/dL Calcium 7.7 L (8.4-10.2) mg/dL Magnesium 2.5 H (1.6-2.3) mg/dL ALT 70 H (4-49) U/L Total Protein 5.5 L (6.3-8.2) g/dL Albumin 2.6 L (3.5-5.0) g/dL 06/28/20 06/28/20 Range/Units 05:52 11:43 WBC (3.8-10.6) k/uL RBC (4.30-5.90) m/uL Hgb (13.0-17.5) gm/dL Hct (39.0-53.0) % RDW (11.5-15.5) % Neutrophils # (1.3-7.7) k/uL Lymphocytes # (1.0-4.8) k/uL ABG pCO2 (35-45) mmHg BUN (9-20) mg/dL Creatinine (0.66-1.25) mg/dL Glucose (74-99) mg/dL POC Glucose (mg/dL) 239 H 244 H (75-99) mg/dL Calcium (8.4-10.2) mg/dL Magnesium (1.6-2.3) mg/dL ALT (4-49) U/L Total Protein (6.3-8.2) g/dL Albumin (3.5-5.0) g/dL Microbiology - Last 24 Hours (Table) 06/26/20 21:39 Gram Stain - Preliminary Sputum Sputum Culture - Preliminary
[2020-06-28] MEDS: AMIODARONE 300 MG in DEXTROSE 5% IN WATER 250 ML IV SCH ×2 (15:49)
--- NOTE | 2020-06-28 15:53 | P.PN ---
Subjective Progress Note Date: 06/28/20 Principal diagnosis: Acute hypoxic respiratory failure secondary to pulmonary edema and acute on chronic systolic congestive heart failure 65-year-old male patient who came into the hospital because of an acute chest pain. Unstable angina was suspected as the patient has known history of cardiac disease and coronary artery disease and the patient underwent a recent coronary intervention and stenting of the RCA by Dr. Cordero and this was done on 06/15/2020. Note that post cardiac catheterization the patient also had a brief cardiopulmonary arrest with a PEA rhythm and the patient was resuscitated successfully without any signs of anoxic encephalopathy and the patient was discharged home. Noted the patient had developed carotid myopathy and there was a drop in the patient's left and ejection fraction of 25%. This was not explained on the basis of coronary artery disease and expect cause for his drop in the LV has not been established. The patient is known to have CAD and he has undergone previous bypass surgery. His MCDERMOTT to LAD and this was done 2000. He has undergone previous stenting to the circumflex on previous evaluations. Note that during this current admission, the patient had chest pain. Cardiac enzymes were essentially downtrending from recent [place] and the troponin was noted to 0.7. The patient was taken to catheterization and the patient was found to have a patent MCDERMOTT to LAD, patent stent in the RCA. No acute intervention was done. The patient had a right coronary system with a mid 40% stenosis distal to the stent. There was mild disease in the PDA and PLV. Circumflex system was percent occluded. The pulmonary capillary wedge pressure was 38. PA pressures were 76/31. Cardiac output was at 3.88. Following that, the patient was sent to the intensive care unit. Once in ICU, the patient was found to be in acute respiratory distress. He was severely hypoxic and he was becoming more unresponsive and he was breathing in the high 40s. At that point, the patient was intubated and placed on mechanical ventilation. Post intubation, the patient became profoundly hypotensive and the patient is currently requiring high-dose pressors for hemodynamic support. The patient currently is an assist- control mode of ventilation at the rate of 18 with a tidal volume of 500 and FiO2 of 40% with a PEEP of 5. Norepinephrine infusion is running at 0.5 g per KG per minute. The patient is sedated with propofol at 50 mg per KG per minute. IV fluids are currently at KVO. The MOISÉS was done today and the patient had evidence of global hypokinesis with an ejection fraction of 25-30%. The aortic valve was bioprosthetic and a peak gradient across the aortic valve was 60 with a mean gradient of 30 mmHg. There was moderate to severe mitral regurgitation and moderate tricuspid regurgitation and the right ventricular systolic pressure was estimated to be 48. There was dilatation of the r left atrium along with mild aortic regurgitation at the level of the bioprosthetic aortic valve and moderate severe mitral regurgitation and mild pulmonary hypertension. No evidence of any grjl-zz-fijgb shunting and there was no evidence of any pericardial effusion. Note that overnight, nephrology was consulted and the patient was given a session of dialysis today total of 2 L of ultrafiltration per chest x-ray still showing evidence of CHF and cardiomegaly and pulmonary edema. On 06/26/2020 the patient is being seen for a follow-up. He remains sedated on propofol at 45 g. Remains in cardiogenic shock and the patient is still hy potensive requiring pressors and the patient is on an norepinephrine infusion running at 0.31mcg/kg per minute. IV fluids are still at KVO. The patient underwent hemodialysis yesterday and a second session will be done today with ultrafiltration. He continues to have edema in the lower extremities and the chest x-ray still showing pulmonary edema with cardiomegaly. Nevertheless, the oxygenation itself is improved and the patient is currently on assist control mode at the rate of 60 with either volume of 500 and FiO2 of 40% with a PEEP of 5. The blood gases showed a pH of 7.45 with a pCO2 of 34 and pO2 of 94. The patient will be started on enteral feeding for nutritional support. No fever. He doesn't produce a whole lot of urine output. Hemoglobin is at 12.5. The patient also has a BUN of 54 with a creatinine of 6.8. Calcium level is at 7.3. Discussed the case with nephrology in regards to proceed with another session of hemodialysis today. 06/27/2020, the patient remains sedated on a mechanical ventilator. The patient remains hypotensive requiring pressors although at the lower dose. Norepinephrine infusion is running at 0.4 mg per KG per minute. The patient is sedated with propofol with running at 40 g per KG per minute. IV fluids are at KVO. The patient underwent hemodialysis yesterday with a total of 2.5 L of fluid was removed. Another session of hemodialysis to be done today. Nevertheless, the chest x-ray still showing pulmonary edema and cardiomegaly. There is still edema in lower extremities bilaterally. Another session of hemodialysis to follow today. The patient remains on a mechanical ventilator. The patient is an assist-control mode at the rate of 60 with a tidal volume of 500 and FiO2 of 40% with a PEEP of 5. The patient's blood gases from today shows a pH of 7.4 with a pCO2 of 34 and pO2 95. White cell count at 16. Hemoglobin was at 12.4.. The patient is a creatinine of 6.3 with a BUN of 50. Urine output is minimal at this point in time. The patient was also started enteral feeding for nutritional support. IV antibiotics with empiric coverage will be started with IV cefepime. Patient was reevaluated today on 06/28/20, remains in the ICU, intubated, sedated, on mechanical ventilation. Patient is on assist control rate of 16 volume is 500 FiO2 is 40% PEEP is 5. ABG showed a pO2 of 84 pCO2 of 33 pH of 7.43. Patient is unresponsive to deep painful stimuli. Chest x-ray continues to show evidence of pulmonary edema. Patient is on norepinephrine at 0.38 mcg/kg/m, he is on propofol at 15 which I recommended to placed on hold. Patient is also on enteral feeding/MOPP pro at 17 mL per hour. Patient was intubated on the . He has a left subclavian central line, and a left radial arterial line. Patient did not tolerate hemodialysis today. Still requiring significant pressors for hemodynamic support. Not quite ready for weaning, however I have instructed that we hold propofol, addressed mental status, and if no responses, patient will have to go for a CT of the brain. WBC count today 16.5 hemoglobin is 12.2 electrolytes are normal ABG showed a pO2 of 84 pCO2 of 33 pH of 7.43. BUN is 50 creatinine 6.38. Chest x-ray continues to show evidence of pulmonary edema. Objective - Vital Signs Vital signs: Vital Signs Temp 98.5 F 06/28/20 12:00 Pulse 78 06/28/20 14:30 Resp 23 06/28/20 14:30 BP 123/55 06/28/20 09:44 Pulse Ox 98 06/28/20 14:30 Intake & Output 06/27/20 06/28/20 06/28/20 18:59 06:59 18:59 Intake Total 624.726 4673.052 599.907 Output Total 2322 0 250 Balance -2562.007 2713.052 349.907 Weight 106.3 kg Intake: IV 376 326 194 0.9 240 240 170 Cefepime 1 gm In Sodium 100 Chloride 0.9% 50 ml @ 100 mls/hr IVPB ONCE ONE Rx# :[id number] Cefepime 1 gm In Sodium 50 Chloride 0.9% 50 ml @ 12. 5 mls/hr IVPB Q12HR MOMO Rx#:[id number] pressure bag 36 36 24 Intake, IV Titration 394.048 426.052 209.907 Amount Norepinephrine 32 mg In 139.881 366.129 110.917 Sodium Chloride 0.9% 218 ml @ 0.5 MCG/KG/MIN 25. 992 mls/hr IV .Q9H38M MOMO Rx#:[id number] propofoL 1,000 mg In 254.167 59.923 98.990 Empty Bag 1 bag @ Titrate IV .Q0M MOMO Rx#: [id number] Tube Feeding 153 255 136 Other 60 90 60 Output: Urine 22 0 0 Hemodialysis 2300 250 Other: Voiding Method Indwelling Catheter Indwelling Catheter Indwelling Catheter # Voids 0 0 0 ABP, PAP, CO, CI - Last Documented Arterial Blood Pressure 105/41 - Exam General Appearance: 65-year-old male obese, intubated and mechanically ventilated, sedated, on propofol. HEENT: Atraumatic, normocephalic, PERRLA, EOMI, no icterus, no neck masses, no JVD. Lungs: Crackles at the bases bilaterally. Chest Wall: Symmetrical expansion. Heart: Irregular irregular rhythm, 2/6 systolic murmur thought the precordium. Positive JVD. Abdomen: Obese, Soft, non-tender, normal bowel sounds. Nontender. No rebound no guarding Extremities: 2+ bipedal edema, decreased pulses bilaterally.. Skin: No rashes. Normal skin turgor. Neurologic: Sedated, cannot assess neurological status, does not respond to any stimuli including painful stimuli. Psychiatric: Could not assess. - Labs CBC & Chem 7: 06/28/20 05:00 06/28/20 05:00 Labs: Abnormal Lab Results - Last 24 Hours (Table) 06/27/20 06/27/20 06/28/20 Range/Units 18:45 23:22 05:00 WBC 16.5 H (3.8-10.6) k/uL RBC 3.77 L (4.30-5.90) m/uL Hgb 12.2 L (13.0-17.5) gm/dL Hct 37.5 L (39.0-53.0) % RDW 16.0 H (11.5-15.5) % Neutrophils # 14.8 H (1.3-7.7) k/uL Lymphocytes # 0.7 L (1.0-4.8) k/uL ABG pCO2 (35-45) mmHg BUN (9-20) mg/dL Creatinine (0.66-1.25) mg/dL Glucose (74-99) mg/dL POC Glucose (mg/dL) 241 H 245 H (75-99) mg/dL Calcium (8.4-10.2) mg/dL Magnesium (1.6-2.3) mg/dL ALT (4-49) U/L Total Protein (6.3-8.2) g/dL Albumin (3.5-5.0) g/dL 06/28/20 06/28/20 06/28/20 Range/Units 05:00 05:00 05:08 WBC (3.8-10.6) k/uL RBC (4.30-5.90) m/uL Hgb (13.0-17.5) gm/dL Hct (39.0-53.0) % RDW (11.5-15.5) % Neutrophils # (1.3-7.7) k/uL Lymphocytes # (1.0-4.8) k/uL ABG pCO2 33 L (35-45) mmHg BUN 50 H (9-20) mg/dL Creatinine 6.38 H (0.66-1.25) mg/dL Glucose 257 H (74-99) mg/dL POC Glucose (mg/dL) (75-99) mg/dL Calcium 7.7 L (8.4-10.2) mg/dL Magnesium 2.5 H (1.6-2.3) mg/dL ALT 70 H (4-49) U/L Total Protein 5.5 L (6.3-8.2) g/dL Albumin 2.6 L (3.5-5.0) g/dL 06/28/20 06/28/20 Range/Units 05:52 11:43 WBC (3.8-10.6) k/uL RBC (4.30-5.90) m/uL Hgb (13.0-17.5) gm/dL Hct (39.0-53.0) % RDW (11.5-15.5) % Neutrophils # (1.3-7.7) k/uL Lymphocytes # (1.0-4.8) k/uL ABG pCO2 (35-45) mmHg BUN (9-20) mg/dL Creatinine (0.66-1.25) mg/dL Glucose (74-99) mg/dL POC Glucose (mg/dL) 239 H 244 H (75-99) mg/dL Calcium (8.4-10.2) mg/dL Magnesium (1.6-2.3) mg/dL ALT (4-49) U/L Total Protein (6.3-8.2) g/dL Albumin (3.5-5.0) g/dL Microbiology - Last 24 Hours (Table) 06/26/20 21:39 Gram Stain - Preliminary Sputum Sputum Culture - Preliminary Assessment and Plan Assessment: Impression: Acute hypoxic respiratory failure secondary to acute on chronic systolic congestive heart failure and pulmonary edema. Cardiogenic shock requiring vasopressors. End-stage renal disease, requiring hemodialysis. Recent non-ST elevation myocardial infarction and angioplasty with stent placement Severe ischemic cardiomyopathy and LV dysfunction. Pulmonary hypertension. Insulin-dependent diabetes. History of aortic valve replacement for significant aortic stenosis. Dyslipidemia. Patent foramen ovale with [id number] shunt. Diabetic peripheral neuropathy. Recommendation: Continue ventilatory support. Continue hemodialysis Continue blood pressure support with norepinephrine. Continue GI and DVT prophylaxis. Continue antibiotics empirically. Consider CT of the brain and the patient continues to have poor mental status. Off propofol. Overall prognosis is extremely poor and guarded considering his ischemic cardiomyopathy and cardiogenic shock. No plans to consider any weaning at this point, patient is not ready. We'll continue to follow. Critical care time 34 minutes Time with Patient: Greater than 30
--- NOTE | 2020-06-28 18:04 | CT ---
EXAMINATION TYPE: CT brain wo con DATE OF EXAM: 06/28/2020 COMPARISON: 03/30/2017 HISTORY: altered mental status CT DLP: 1099.4 mGycm Automated exposure control for dose reduction was used. There is some cerebral cortical atrophy. There is no mass effect nor midline shift. There is no sign of intracranial hemorrhage. Calvarium is intact. There is no evidence of cerebral edema. Skull base i s intact. IMPRESSION: Mild atrophy. No acute intracranial abnormality. No change.
[2020-06-28 18:31] LABS: Glucose,Whole Blood 224 mg/dL (75-99)
[2020-06-28] MEDS: INSULIN DETEMIR (LEVEMIR) 100 UNIT/ML SYR SQ SCH (21:09)
[2020-06-29 00:03] LABS: Glucose,Whole Blood 206 mg/dL (75-99)
[2020-06-29] MEDS: INSULIN ASPART (NovoLOG) 100 UNIT/ML VIAL SQ SCH ×10 (00:06→23:42)
[2020-06-29] MEDS: AMIODARONE 300 MG in DEXTROSE 5% IN WATER 250 ML IV SCH ×2 (00:06)
[2020-06-29 04:24] LABS: Anisocytosis Slight; Basophils # (A) 0.1 k/uL (0-0.2); Basophils % (A) 1 %; Eosinophils # (A) 0.1 k/uL (0-0.7); Eosinophils % (A) 1 %; HCT 35.6 % (39.0-53.0); HGB 11.4 gm/dL (13.0-17.5); Lymphocytes # (A) 0.7 k/uL (1.0-4.8); Lymphocytes % (A) 5 %; MCH 31.8 pg (25.0-35.0); MCHC 32.1 g/dL (31.0-37.0); MCV 99.2 fL (80.0-100.0); Macrocytosis Slight; Mean Platelet Volume 7.6; Monocytes # (A) 0.5 k/uL (0-1.0); Monocytes % (A) 4 %; Neutrophils # (A) 12.2 k/uL (1.3-7.7); Neutrophils % (A) 88 %; Platelet Count 212 k/uL (150-450); RBC 3.59 m/uL (4.30-5.90); WBC 13.8 k/uL (3.8-10.6)
[2020-06-29] MEDS: NOREPINEPHRINE 32 MG in SODIUM CHLORIDE 0.9% 218 ML IV SCH ×2 (04:24→15:43)
[2020-06-29 04:39] LABS: Calcium 7.5 mg/dL (8.4-10.2); Phosphorus 5.9 mg/dL (2.5-4.5); Potassium 4.9 mmol/L (3.5-5.1)
[2020-06-29 05:15] LABS: ABG Base Excess -2.6 mmol/L; ABG HCO3 22 mmol/L (21-25); ABG Oxygen Saturation 96.6 % (94-97); ABG PCO2 33 mmHg (35-45); ABG PH 7.43 (7.35-7.45); ABG PO2 91 mmHg (83-108); ABG TCO2 23 mmol/L (19-24); Allen Test Performed? Yes
[2020-06-29 06:17] LABS: Glucose,Whole Blood 209 mg/dL (75-99)
[2020-06-29] MEDS: LEVOTHYROXINE 50 MCG TAB PO SCH (06:18)
--- NOTE | 2020-06-29 08:20 | XR ---
EXAMINATION TYPE: XR chest 1V portable DATE OF EXAM: 06/29/2020 Comparison: 06/28/2020 Clinical History: 65-year-old male Tube placement Findings: Rightward patient rotation ultrasound and normal cardiomediastinal contours. Left subclavian CVC tip at the mid SVC level. ET tube tip 3.4 cm from the álvaro, satisfactory. NG tube courses below the rickey phragm though the distal aspect is beyond the field of view and not assessed. Heart remains mildly en larged. Diffuse bilateral airspace opacities greatest in the mid and lower lungs, right greater than left persist with slight interval worsening. Impression: 1. Rotated exam. 2. Continued cardiomegaly and right greater than left diffuse airspace disease and likely underlying effusions. Correlate for CHF with pulmonary edema, slightly worsened.
[2020-06-29] MEDS: CHLORHEXIDINE GLUCONATE 15 ML CUP MUCOUS MEM SCH ×2 (08:26→21:59)
[2020-06-29] MEDS: CLOPIDOGREL 75 MG TAB PO SCH (08:26)
[2020-06-29] MEDS: ATORVASTATIN 40 MG TAB PO SCH (08:26)
[2020-06-29] MEDS: HEPARIN SODIUM,PORCINE 5,000 UNIT/ML 1 ML VIAL SQ SCH ×2 (08:26→21:59)
[2020-06-29] MEDS: CEFEPIME 1 GM in SODIUM CHLORIDE 0.9% 50 ML IVPB SCH (08:26)
[2020-06-29] MEDS: ASPIRIN 81 MG PO SCH (08:26)
[2020-06-29] MEDS: PANTOPRAZOLE 40 MG/10 ML VIAL IVP SCH (08:26)
[2020-06-29] MEDS ORDERED: CISATRACURIUM 2 MG/ML 5 ML VIAL IV ONE (09:59)
--- NOTE | 2020-06-29 10:24 | P.PN ---
Subjective Progress Note Date: 06/29/20 HISTORY OF PRESENT ILLNESS 65-year-old male one of my office patient with past medical history of end-stage renal disease Advanced cardiomyopathy, history of diabetes, systolic congestive heart failure, pulmonary hypertension, and multiple other medical problem who is known to have history of coronary disease with MCDERMOTT to the LAD in 2000 and stenting of the circumflex in 2018 recent stenting of the RCA and 06/15/2020 with cardiac arrest after heart catheter on 06-15 with PEA, aortic valve placement back in 2014 at [facility]. Patient left the hospital 2 days ago after long hospitalization for his intubation mechanical ventilation after his cardiac arrest from his heart catheter ended up on mechanical ventilation and vasopressor for many days finally was extubated successfully and done well was taking of vasopressor his hemoglobin was low patient continued having slight chest pain but with controlled with medication. Left the hospital successfully and doing well he was in dialysis today during after dialysis developed to have midsternal chest pain and recurrent angina with severe pain in the midsternal area associated with wide bit cold sweat along with palpitation nausea ended up coming to the emergency department at [facility] found to have significantly elevated troponin at 2.78 with slightly atypical change in EKG with his current symptoms patient was taken to the cath lab radiological technologist by cardiology had heart cath with Dr. Rivera finding of unchanged coronary artery disease compared to the heart cath and 06/15/2020 with patent RCA, 85 percentile mid LAD stenosis with patent MCDERMOTT to the LAD and known 100% occlusion of the circumflex, patient cardiac output remained 3.9 L/m increased right to left sided pressure, group 2 pulmonary hypertension with pressure over 55 mmHg, also had significant abnormality in the aortic valve with difficult crossing which can be consistent with severe stenosis. Patient finishes procedure successfully was transferred to the ICU for symptoms control his ejection fraction remain less than 25%. 06/25: Patient was discharged to ICU on BiPAP but desatted during the night and became hypotensive. He required intubation and remains on mechanical ventilation with tidal volume 500, FiO2 40, PEEP of 5. Patient is also on norepinephrine. 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 Repeat chest x-ray this morning reveals no large pneumothorax. Diffuse infiltrates and small right pleural effusion similar to earlier exam. Patient had hemodialysis this morning with removal of 2.5 liters. Repeat blood work reveals WBC 17.3, hemoglobin 12.6. Sodium 132, potassium 4.5, chloride 96, CO2 23, BUN 33 and creatinine 4.61. Blood sugar 158. 06/26: Patient remains intubated with tidal volume 500, FiO2 40, PEEP of 5. Patient is also on high-dose norepinephrine and maxed onto per Van. Repeat chest x-ray reveals progressive airspace infiltrates throughout both lung ruiz small effusion suspected. He is scheduled for repeat hemodialysis today. MOISÉS revealed dilated left atrium with normal appearance of the left atrial appendage. Severe global hypokinesia. Bioprosthetic aortic valve with evidence of mild aortic regurgitation, severe aortic regurgitation with gradient of 30 mmHg with peak of 60 mmHg. Moderate to severe mitral regurgitation with moderate tricuspid regurgitation. Mild pulmonary hypertension. Evidence of patent foramen ovale with predominantly vgwi-di-rdein shunting. No pericardial effusion. 06/27: Patient remains intubated and on mechanical ventilation with tidal volume 500, FiO2 40, PEEP of 5. He also remains on propofol and norepinephrine. Blood pressure 103/46, heart rate 80, afebrile. Repeat lab work reveals a BB 616, hemoglobin 12.4, platelet count 210. Sodium 136, potassium 4.9, chloride 102, CO2 20, BUN 15 creatinine 6.32. Patient is scheduled for hemodialysis today with plan to remove 3 L. 06/28: Patient remains in the intensive care unit on mechanical ventilation with tidal volume 500, FiO2 40, PEEP of 5. Patient is also on propofol and norepinephrine. Patient had runs of V. tach this morning while he was on hemodialysis and this had to be discontinued. He has been afebrile, heart rate 84, blood pressure 109/44, pulse ox 97% on mechanical ventilation. Repeat blood work reveals WBC 16.5, hemoglobin 12.2. Electrolytes normal, BUN 15 creatinine 6.38. Blood sugars running in the 200s and 4 units of NovoLog scheduled added. Plan is to call patient's and updated her regarding his current situation. 06/29: Patient remains intubated and on mechanical ventilation with pulse ox of 99%, tidal volume 500, FiO2 40, PEEP of 5. He has been afebrile, heart rate 73, blood pressure 122/52. environmental monitoring specialist is a sinus rhythm with occasional PVCs. Patient is undergoing hemodialysis today with plan for removal of 2 L of fluid. Repeat chest x-ray reveals continued cardiomegaly, right greater than left diffuse airspace disease and likely underlying effusions. Correlate for heart failure with pulmonary edema slightly worsened. CAT scan of the brain showed mild atrophy. No acute intracranial abnormality. No change. WBC 13.8, hemoglobin 11.4. Electrolytes normal, BUN 62, creatinine 7.43. The patient's has made him a no CODE STATUS. The patient is on oral tube feedings with Nepro. REVIEW OF SYSTEMS Unable to obtain due to intubation. PHYSICAL EXAMINATION General Appearance: Sedated, no distress, appears stated age. Patient is undergoing dialysis. Neck HEENT: Supple, no lymphadenopathy, no thyroid enlargement, no carotid bruits. Intubated and on mechanical ventilation and appears comfortable. Lungs: Decreased breath sounds bilaterally Chest Wall: no deformity was found on exam, no costochondral pain or discomfort. Heart: Irregular rate and rhythm, S1, S2 positive history positive systolic murmur With JVD. Back: Symmetric, no curvature, ROM normal, no CVA tenderness. Abdomen: Soft, non-tender, bowel sounds active all four quadrants, no masses, no organomegaly. Alberts catheter was small amount of urine. Extremities: Extremities 1-2+ edema decreased pulse bilaterally. Pulses: 2+ and symmetric. Skin: Skin color, texture, tugor normal, no rashes or lesions. Neurologic: Sedated and on mechanical ventilation. ASSESSMENT AND PLAN 1 unstable angina and recurrent chest pain with recent history of myocardial infarction as non-ST WA post angioplasty and stent placement patient continued to be symptomatic at this point patient was admitted to the hospital, heart catheter was performed no change from last time significant finding with multiple coronary a disease along with angioplasty. Continue aspirin, atorvastatin, Plavix, Lopressor on hold due to hypotension. 2 acute hypoxic respiratory failure requiring intubation and mechanical ventilation secondary to pulmonary edema, acute on chronic systolic heart failure. Pulmonary medicine on consult. 3 cardiogenic shock requiring vasopressors. Patient managed in the intensive care unit. Patient is currently on high dose of norepinephrine. 4 end-stage renal disease on hemodialysis 3 times a week. Hemodialysis today. 5 severe ischemic cardiomyopathy with significantly low ejection fraction and c hronic systolic heart failure: Continue medical management and continue to mobilize free fluid consult. 6 pulmonary hypertension on medical management currently. 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 Patient started on insulin scale every 6 hours for now. 8 post aortic valve placement with significant stenosis finding on heart cath patient might need transesophageal echocardiogram for better view of the aortic valve structure. 9 no history of atrial fibrillation per cardiology. 10 hyperlipidemia: Remain on atorvastatin. 11 BPH. Alberts catheter in place. 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 13 GI prophylaxis: Protonix daily. 14 DVT prophylaxis: Will be on anticoagulation. 15. Episodes of ventricular tachycardia while on dialysis. Dialysis treatment was discontinued. CODE STATUS: Full code. Prognosis guarded. DISCHARGE PLAN To be determined. Impression and plan of care have been directed as dictated by the signing physician. Tomasa Atkins nurse practitioner acting as scribe for signing physician. Objective - Vital Signs Vital signs: Vital Signs Temp 98.8 F 06/29/20 08:00 Pulse 73 06/29/20 09:00 Resp 20 06/29/20 09:00 BP 123/55 06/28/20 09:44 Pulse Ox 99 06/29/20 09:00 Intake & Output 06/28/20 06/29/20 06/29/20 18:59 06:59 18:59 Intake Total 548.510 7956.171 367.995 Output Total 250 5 0 Balance 588.896 6814.171 367.995 Weight 109.6 kg Intake: IV 326 416 149 0.9 290 330 90 Cefepime 1 gm In Sodium 50 50 Chloride 0.9% 50 ml @ 12. 5 mls/hr IVPB Q12HR MOMO Rx#:[id number] pressure bag 36 36 9 Intake, IV Titration 350.414 790.171 137.995 Amount Amiodarone 300 mg In 207.083 Dextrose 5% in Water 250 ml @ 0.5 MG/MIN 25 mls/hr IV .Q10H MOMO Rx#: [id number] Norepinephrine 32 mg In 200.081 309.260 43.494 Sodium Chloride 0.9% 218 ml @ 0.5 MCG/KG/MIN 25. 992 mls/hr IV .Q9H38M MOMO Rx#:[id number] propofoL 1,000 mg In 150.333 273.828 94.501 Empty Bag 1 bag @ Titrate IV .Q0M MOMO Rx#: [id number] Tube Feeding 204 204 51 Lipid 30 0.9 30 Other 90 90 30 Output: Urine 0 5 0 Hemodialysis 250 Other: Voiding Method Indwelling Catheter Indwelling Catheter # Voids 0 0 ABP, PAP, CO, CI - Last Documented Arterial Blood Pressure 122/52 - Labs CBC & Chem 7: 06/29/20 04:10 06/29/20 04:10 Labs: Abnormal Lab Results - Last 24 Hours (Table) 06/28/20 06/28/20 06/28/20 Range/Units 05:00 11:43 18:29 WBC (3.8-10.6) k/uL RBC (4.30-5.90) m/uL Hgb (13.0-17.5) gm/dL Hct (39.0-53.0) % RDW (11.5-15.5) % Neutrophils # (1.3-7.7) k/uL Lymphocytes # (1.0-4.8) k/uL ABG pCO2 (35-45) mmHg BUN (9-20) mg/dL Creatinine (0.66-1.25) mg/dL Glucose (74-99) mg/dL POC Glucose (mg/dL) 244 H 224 H (75-99) mg/dL Calcium (8.4-10.2) mg/dL Phosphorus (2.5-4.5) mg/dL Magnesium 2.5 H (1.6-2.3) mg/dL 06/29/20 06/29/20 06/29/20 Range/Units 00:02 04:10 04:10 WBC 13.8 H (3.8-10.6) k/uL RBC 3.59 L (4.30-5.90) m/uL Hgb 11.4 L (13.0-17.5) gm/dL Hct 35.6 L (39.0-53.0) % RDW 16.0 H (11.5-15.5) % Neutrophils # 12.2 H (1.3-7.7) k/uL Lymphocytes # 0.7 L (1.0-4.8) k/uL ABG pCO2 (35-45) mmHg BUN 62 H (9-20) mg/dL Creatinine 7.43 H* (0.66-1.25) mg/dL Glucose 195 H (74-99) mg/dL POC Glucose (mg/dL) 206 H (75-99) mg/dL Calcium 7.5 L (8.4-10.2) mg/dL Phosphorus 5.9 H (2.5-4.5) mg/dL Magnesium (1.6-2.3) mg/dL 06/29/20 06/29/20 Range/Units 05:04 06:15 WBC (3.8-10.6) k/uL RBC (4.30-5.90) m/uL Hgb (13.0-17.5) gm/dL Hct (39.0-53.0) % RDW (11.5-15.5) % Neutrophils # (1.3-7.7) k/uL Lymphocytes # (1.0-4.8) k/uL ABG pCO2 33 L (35-45) mmHg BUN (9-20) mg/dL Creatinine (0.66-1.25) mg/dL Glucose (74-99) mg/dL POC Glucose (mg/dL) 209 H (75-99) mg/dL Calcium (8.4-10.2) mg/dL Phosphorus (2.5-4.5) mg/dL Magnesium (1.6-2.3) mg/dL
--- NOTE | 2020-06-29 11:20 | P.PN ---
Subjective This is a 65-year-old male past medical history significant for end-stage renal disease, coronary artery disease s/p bypass grafting with MCDERMOTT-LAD 2000, PCI circumflex 2017 and RCA 06/15/2020, diabetes mellitus, pulmonary hypertension, valvular heart disease status post aortic valve replacement and dyslipidemia. He is seen and examined resting comfortably on sedation and mechanical ventilation. He is having frequent PVC's on the monitor but no more runs of VT since amiodarone initiated. Dialysis scheduled for today. Blood pressure 117/50 heart rate 66 afebrile. The family has changed his code status to NO CODE. Laboratory data reviewed, WBC 13.8, hemoglobin 11.4, platelets 212, sodium 137, potassium 4.9, creatinine 7.43. Currently maintained on amiodarone infusion, aspirin 81 mg daily, atorvastatin 40 mg daily, Plavix 75 mg daily and levophed infusion. GENERAL: No acute distress. NECK: Supple without JVD or thyromegaly. LUNGS: Scattered rhonchi, improved from previous exam. Respiration equal and unlabored. HEART: Irregular rate and rhythm with systolic ejection murmur at the base, no rubs or gallops. S1 and S2 heard. Distant heart sounds. EXTREMITIES: Diffuse edema with some weeping of the left lower extremity. No clubbing or cyanosis. ASSESSMENT Non-ST elevated myocardial infarction Cardiogenic shock Acute systolic heart failure acute hypoxic respiratory failure Ischemic cardiomyopathy Ventricular tachycardia Valvular heart disease status post aortic valve replacement Diabetes mellitus Hypertension End-stage renal disease on hemodialysis Dyslipidemia PLAN Transition to oral amiodarone 400 mg BID to taper weekly. Continue supportive care with pressors and dialysis as tolerated. Prognosis guarded. Nurse Practitioner note has been reviewed, I agree with a documented findings and plan of care. Patient was seen and examined. Objective - Vital Signs Vital signs: Vital Signs Temp 98.8 F 06/29/20 08:00 Pulse 66 06/29/20 11:00 Resp 18 06/29/20 11:00 BP 123/55 06/28/20 09:44 Pulse Ox 99 06/29/20 11:00 Intake & Output 06/28/20 06/29/20 06/29/20 18:59 06:59 18:59 Intake Total 162.298 8332.171 494.542 Output Total 250 5 0 Balance 394.150 8116.171 494.542 Weight 109.6 kg Intake: IV 326 416 215 0.9 290 330 150 Cefepime 1 gm In Sodium 50 50 Chloride 0.9% 50 ml @ 12. 5 mls/hr IVPB Q12HR [facility] Rx#:[id number] pressure bag 36 36 15 Intake, IV Titration 350.414 790.171 164.542 Amount Amiodarone 300 mg In 207.083 Dextrose 5% in Water 250 ml @ 0.5 MG/MIN 25 mls/hr IV .Q10H [facility] Rx#: [id number] Norepinephrine 32 mg In 200.081 309.260 70.041 Sodium Chloride 0.9% 218 ml @ 0.5 MCG/KG/MIN 25. 992 mls/hr IV .Q9H38M [facility] Rx#:[id number] propofoL 1,000 mg In 150.333 273.828 94.501 Empty Bag 1 bag @ Titrate IV .Q0M [facility] Rx#: [id number] Tube Feeding 204 204 85 Lipid 30 0.9 30 Other 90 90 30 Output: Urine 0 5 0 Hemodialysis 250 Other: Voiding Method Indwelling Catheter Indwelling Catheter Indwelling Catheter # Voids 0 0 ABP, PAP, CO, CI - Last Documented Arterial Blood Pressure 117/50 - Labs CBC & Chem 7: 06/29/20 04:10 06/29/20 04:10 Labs: Abnormal Lab Results - Last 24 Hours (Table) 06/28/20 06/28/20 06/28/20 Range/Units 05:00 11:43 18:29 WBC (3.8-10.6) k/uL RBC (4.30-5.90) m/uL Hgb (13.0-17.5) gm/dL Hct (39.0-53.0) % RDW (11.5-15.5) % Neutrophils # (1.3-7.7) k/uL Lymphocytes # (1.0-4.8) k/uL ABG pCO2 (35-45) mmHg BUN (9-20) mg/dL Creatinine (0.66-1.25) mg/dL Glucose (74-99) mg/dL POC Glucose (mg/dL) 244 H 224 H (75-99) mg/dL Calcium (8.4-10.2) mg/dL Phosphorus (2.5-4.5) mg/dL Magnesium 2.5 H (1.6-2.3) mg/dL 06/29/20 06/29/20 06/29/20 Range/Units 00:02 04:10 04:10 WBC 13.8 H (3.8-10.6) k/uL RBC 3.59 L (4.30-5.90) m/uL Hgb 11.4 L (13.0-17.5) gm/dL Hct 35.6 L (39.0-53.0) % RDW 16.0 H (11.5-15.5) % Neutrophils # 12.2 H (1.3-7.7) k/uL Lymphocytes # 0.7 L (1.0-4.8) k/uL ABG pCO2 (35-45) mmHg BUN 62 H (9-20) mg/dL Creatinine 7.43 H* (0.66-1.25) mg/dL Glucose 195 H (74-99) mg/dL POC Glucose (mg/dL) 206 H (75-99) mg/dL Calcium 7.5 L (8.4-10.2) mg/dL Phosphorus 5.9 H (2.5-4.5) mg/dL Magnesium (1.6-2.3) mg/dL 06/29/20 06/29/20 Range/Units 05:04 06:15 WBC (3.8-10.6) k/uL RBC (4.30-5.90) m/uL Hgb (13.0-17.5) gm/dL Hct (39.0-53.0) % RDW (11.5-15.5) % Neutrophils # (1.3-7.7) k/uL Lymphocytes # (1.0-4.8) k/uL ABG pCO2 33 L (35-45) mmHg BUN (9-20) mg/dL Creatinine (0.66-1.25) mg/dL Glucose (74-99) mg/dL POC Glucose (mg/dL) 209 H (75-99) mg/dL Calcium (8.4-10.2) mg/dL Phosphorus (2.5-4.5) mg/dL Magnesium (1.6-2.3) mg/dL
[2020-06-29 11:27] VITALS: BMI 35.6
[2020-06-29 11:56] LABS: Glucose,Whole Blood 123 mg/dL (75-99)
[2020-06-29] MEDS: AMIODARONE 200 MG TAB PO SCH ×2 (12:11→21:59)
--- NOTE | 2020-06-29 12:29 | P.PN ---
Subjective Patient is seen for follow-up for ESRD. Currently intubated on 40% FiO2. On levophed support. Quite edematous. Tolerating dialysis well this morning. Amiodarone drip stopped earlier today. Receiving tube feeding. Vital signs are stable. Currently on vasopressor support. General: The patient appeared well nourished and normally developed. HEENT: Head exam is unremarkable. Intubated. LUNGS: Breath sounds decreased. HEART: Rate and Rhythm are regular. ABDOMEN: Soft, nontender. EXTREMITITES: 2+ edema. Chronic changes noted. Objective - Vital Signs Vital signs: Vital Signs Temp 98.8 F 06/29/20 08:00 Pulse 66 06/29/20 11:00 Resp 18 06/29/20 11:00 BP 123/55 06/28/20 09:44 Pulse Ox 99 06/29/20 11:00 Intake & Output 06/28/20 06/29/20 06/29/20 18:59 06:59 18:59 Intake Total 750.898 4671.171 494.542 Output Total 250 5 0 Balance 356.463 6553.171 494.542 Weight 109.6 kg 109.6 kg Intake: IV 326 416 215 0.9 290 330 150 Cefepime 1 gm In Sodium 50 50 Chloride 0.9% 50 ml @ 12. 5 mls/hr IVPB Q12HR [facility] Rx#:[id number] pressure bag 36 36 15 Intake, IV Titration 350.414 790.171 164.542 Amount Amiodarone 300 mg In 207.083 Dextrose 5% in Water 250 ml @ 0.5 MG/MIN 25 mls/hr IV .Q10H [facility] Rx#: [id number] Norepinephrine 32 mg In 200.081 309.260 70.041 Sodium Chloride 0.9% 218 ml @ 0.5 MCG/KG/MIN 25. 992 mls/hr IV .Q9H38M [facility] Rx#:[id number] propofoL 1,000 mg In 150.333 273.828 94.501 Empty Bag 1 bag @ Titrate IV .Q0M [facility] Rx#: [id number] Tube Feeding 204 204 85 Lipid 30 0.9 30 Other 90 90 30 Output: Urine 0 5 0 Hemodialysis 250 Other: Voiding Method Indwelling Catheter Indwelling Catheter Indwelling Catheter # Voids 0 0 ABP, PAP, CO, CI - Last Documented Arterial Blood Pressure 117/50 - Labs CBC & Chem 7: 06/29/20 04:10 06/29/20 04:10 Labs: Abnormal Lab Results - Last 24 Hours (Table) 06/28/20 06/28/20 06/29/20 Range/Units 05:00 18:29 00:02 WBC (3.8-10.6) k/uL RBC (4.30-5.90) m/uL Hgb (13.0-17.5) gm/dL Hct (39.0-53.0) % RDW (11.5-15.5) % Neutrophils # (1.3-7.7) k/uL Lymphocytes # (1.0-4.8) k/uL ABG pCO2 (35-45) mmHg BUN (9-20) mg/dL Creatinine (0.66-1.25) mg/dL Glucose (74-99) mg/dL POC Glucose (mg/dL) 224 H 206 H (75-99) mg/dL Calcium (8.4-10.2) mg/dL Phosphorus (2.5-4.5) mg/dL Magnesium 2.5 H (1.6-2.3) mg/dL 06/29/20 06/29/20 06/29/20 Range/Units 04:10 04:10 05:04 WBC 13.8 H (3.8-10.6) k/uL RBC 3.59 L (4.30-5.90) m/uL Hgb 11.4 L (13.0-17.5) gm/dL Hct 35.6 L (39.0-53.0) % RDW 16.0 H (11.5-15.5) % Neutrophils # 12.2 H (1.3-7.7) k/uL Lymphocytes # 0.7 L (1.0-4.8) k/uL ABG pCO2 33 L (35-45) mmHg BUN 62 H (9-20) mg/dL Creatinine 7.43 H* (0.66-1.25) mg/dL Glucose 195 H (74-99) mg/dL POC Glucose (mg/dL) (75-99) mg/dL Calcium 7.5 L (8.4-10.2) mg/dL Phosphorus 5.9 H (2.5-4.5) mg/dL Magnesium (1.6-2.3) mg/dL 06/29/20 06/29/20 Range/Units 06:15 11:54 WBC (3.8-10.6) k/uL RBC (4.30-5.90) m/uL Hgb (13.0-17.5) gm/dL Hct (39.0-53.0) % RDW (11.5-15.5) % Neutrophils # (1.3-7.7) k/uL Lymphocytes # (1.0-4.8) k/uL ABG pCO2 (35-45) mmHg BUN (9-20) mg/dL Creatinine (0.66-1.25) mg/dL Glucose (74-99) mg/dL POC Glucose (mg/dL) 209 H 123 H (75-99) mg/dL Calcium (8.4-10.2) mg/dL Phosphorus (2.5-4.5) mg/dL Magnesium (1.6-2.3) mg/dL Assessment and Plan Plan: Assessment: 1. End-stage renal disease maintained on hemodialysis on Sunday schedule. 2. Acute on chronic systolic CHF with ejection fraction of 20-25% with severe aortic regurgitation, moderate to severe mitral regurgitation, moderate tricuspid regurgitation. 3. Fluid overload. 4. History of coronary artery disease status post CABG with recent stenting of the right coronary artery. 5. Cardiogenic shock maintained on Levophed. 6. Chronic kidney disease mineral bone disease. 7. Hyponatremia secondary to CKD. Hypervolemic. Better. 8. Runs of V. tach s/p amiodarone drip. Cardiology following. Plan: Currently seen while undergoing hemodialysis. Tolerating the treatment well today. Wean FiO2 and vasopressors. Overall prognosis guarded. Maintain tube feeding. Add Renvela.
--- NOTE | 2020-06-29 13:08 | P.PN ---
Subjective Progress Note Date: 06/29/20 Principal diagnosis: Acute hypoxic respiratory failure secondary to pulmonary edema and acute on chronic systolic congestive heart failure 65-year-old male patient who came into the hospital because of an acute chest pain. Unstable angina was suspected as the patient has known history of cardiac disease and coronary artery disease and the patient underwent a recent coronary intervention and stenting of the RCA by Dr. Cordero and this was done on 06/15/2020. Note that post cardiac catheterization the patient also had a brief cardiopulmonary arrest with a PEA rhythm and the patient was resuscitated successfully without any signs of anoxic encephalopathy and the patient was discharged home. Noted the patient had developed carotid myopathy and there was a drop in the patient's left and ejection fraction of 25%. This was not explained on the basis of coronary artery disease and expect cause for his drop in the LV has not been established. The patient is known to have CAD and he has undergone previous bypass surgery. His MCDERMOTT to LAD and this was done 2000. He has undergone previous stenting to the circumflex on previous evaluations. Note that during this current admission, the patient had chest pain. Cardiac enzymes were essentially downtrending from recent WA and the troponin was noted to 0.7. The patient was taken to catheterization and the patient was found to have a patent MCDERMOTT to LAD, patent stent in the RCA. No acute intervention was done. The patient had a right coronary system with a mid 40% stenosis distal to the stent. There was mild disease in the PDA and PLV. Circumflex system was percent occluded. The pulmonary capillary wedge pressure was 38. PA pressures were 76/31. Cardiac output was at 3.88. Following that, the patient was sent to the intensive care unit. Once in ICU, the patient was found to be in acute respiratory distress. He was severely hypoxic and he was becoming more unresponsive and he was breathing in the high 40s. At that point, the patient was intubated and placed on mechanical ventilation. Post intubation, the patient became profoundly hypotensive and the patient is currently requiring high-dose pressors for hemodynamic support. The patient currently is an assist- control mode of ventilation at the rate of 18 with a tidal volume of 500 and FiO2 of 40% with a PEEP of 5. Norepinephrine infusion is running at 0.5 g per KG per minute. The patient is sedated with propofol at 50 mg per KG per minute. IV fluids are currently at KVO. The MOISÉS was done today and the patient had evidence of global hypokinesis with an ejection fraction of 25-30%. The aortic valve was bioprosthetic and a peak gradient across the aortic valve was 60 with a mean gradient of 30 mmHg. There was moderate to severe mitral regurgitation and moderate tricuspid regurgitation and the right ventricular systolic pressure was estimated to be 48. There was dilatation of the r left atrium along with mild aortic regurgitation at the level of the bioprosthetic aortic valve and moderate severe mitral regurgitation and mild pulmonary hypertension. No evidence of any [id number] shunting and there was no evidence of any pericardial effusion. Note that overnight, nephrology was consulted and the patient was given a session of dialysis today total of 2 L of ultrafiltration per chest x-ray still showing evidence of CHF and cardiomegaly and pulmonary edema. On 06/26/2020 the patient is being seen for a follow-up. He remains sedated on propofol at 45 g. Remains in cardiogenic shock and the patient is still hy potensive requiring pressors and the patient is on an norepinephrine infusion running at 0.31mcg/kg per minute. IV fluids are still at KVO. The patient underwent hemodialysis yesterday and a second session will be done today with ultrafiltration. He continues to have edema in the lower extremities and the chest x-ray still showing pulmonary edema with cardiomegaly. Nevertheless, the oxygenation itself is improved and the patient is currently on assist control mode at the rate of 60 with either volume of 500 and FiO2 of 40% with a PEEP of 5. The blood gases showed a pH of 7.45 with a pCO2 of 34 and pO2 of 94. The patient will be started on enteral feeding for nutritional support. No fever. He doesn't produce a whole lot of urine output. Hemoglobin is at 12.5. The patient also has a BUN of 54 with a creatinine of 6.8. Calcium level is at 7.3. Discussed the case with nephrology in regards to proceed with another session of hemodialysis today. 06/27/2020, the patient remains sedated on a mechanical ventilator. The patient remains hypotensive requiring pressors although at the lower dose. Norepinephrine infusion is running at 0.4 mg per KG per minute. The patient is sedated with propofol with running at 40 g per KG per minute. IV fluids are at KVO. The patient underwent hemodialysis yesterday with a total of 2.5 L of fluid was removed. Another session of hemodialysis to be done today. Nevertheless, the chest x-ray still showing pulmonary edema and cardiomegaly. There is still edema in lower extremities bilaterally. Another session of hemodialysis to follow today. The patient remains on a mechanical ventilator. The patient is an assist-control mode at the rate of 60 with a tidal volume of 500 and FiO2 of 40% with a PEEP of 5. The patient's blood gases from today shows a pH of 7.4 with a pCO2 of 34 and pO2 95. White cell count at 16. Hemoglobin was at 12.4.. The patient is a creatinine of 6.3 with a BUN of 50. Urine output is minimal at this point in time. The patient was also started enteral feeding for nutritional support. IV antibiotics with empiric coverage will be started with IV cefepime. Patient was reevaluated today on 06/28/20, remains in the ICU, intubated, sedated, on mechanical ventilation. Patient is on assist control rate of 16 volume is 500 FiO2 is 40% PEEP is 5. ABG showed a pO2 of 84 pCO2 of 33 pH of 7.43. Patient is unresponsive to deep painful stimuli. Chest x-ray continues to show evidence of pulmonary edema. Patient is on norepinephrine at 0.38 mcg/kg/m, he is on propofol at 15 which I recommended to placed on hold. Patient is also on enteral feeding/MOPP pro at 17 mL per hour. Patient was intubated on the . He has a left subclavian central line, and a left radial arterial line. Patient did not tolerate hemodialysis today. Still requiring significant pressors for hemodynamic support. Not quite ready for weaning, however I have instructed that we hold propofol, addressed mental status, and if no responses, patient will have to go for a CT of the brain. WBC count today 16.5 hemoglobin is 12.2 electrolytes are normal ABG showed a pO2 of 84 pCO2 of 33 pH of 7.43. BUN is 50 creatinine 6.38. Chest x-ray continues to show evidence of pulmonary edema. Reevaluated today on 06/29/20, patient remains in the ICU, intubated and mechanically ventilated. Patient may be dialyzed today, chest x-ray clearly shows evidence of worsening pulmonary edema. Ventilator settings are assist control rate 16, tidal volume is 500 FiO2 is 40% PEEP is 5. ABG showed a pO2 of 91 pCO2 of 33 pH of 7.43. Patient remains on norepinephrine at 54 mcg/m, he is on propofol at 35 mcg/kg/m, she is also on amiodarone 0.5 g per hour. Patient is supposed to receive dialysis today. His CODE STATUS was changed last night to DO NOT RESUSCITATE as per his . Patient remains on enteral feeding, receiving Nepro. Supposed to have dialysis and 2 L to be removed likely today. Chest x-ray is concerning as it shows worsening pulmonary edema. I believe he count today is 13.8 hemoglobin is 11.4. Electrolytes are normal BUN is 62 creatinine 7.43 Objective - Vital Signs Vital signs: Vital Signs Temp 98.2 F 06/29/20 12:00 Pulse 68 06/29/20 12:00 Resp 20 06/29/20 12:00 BP 123/55 06/28/20 09:44 Pulse Ox 98 06/29/20 12:00 Intake & Output 06/28/20 06/29/20 06/29/20 18:59 06:59 18:59 Intake Total 040.558 5138.171 643.579 Output Total 250 5 0 Balance 986.204 5853.171 643.579 Weight 109.6 kg 109.6 kg Intake: IV 326 416 248 0.9 290 330 180 Cefepime 1 gm In Sodium 50 50 Chloride 0.9% 50 ml @ 12. 5 mls/hr IVPB Q12HR [facility] Rx#:[id number] pressure bag 36 36 18 Intake, IV Titration 350.414 790.171 199.579 Amount Amiodarone 300 mg In 207.083 Dextrose 5% in Water 250 ml @ 0.5 MG/MIN 25 mls/hr IV .Q10H [facility] Rx#: [id number] Norepinephrine 32 mg In 200.081 309.260 105.078 Sodium Chloride 0.9% 218 ml @ 0.5 MCG/KG/MIN 25. 992 mls/hr IV .Q9H38M [facility] Rx#:[id number] propofoL 1,000 mg In 150.333 273.828 94.501 Empty Bag 1 bag @ Titrate IV .Q0M [facility] Rx#: [id number] Tube Feeding 204 204 136 Lipid 30 0.9 30 Other 90 90 60 Output: Urine 0 5 0 Hemodialysis 250 Other: Voiding Method Indwelling Catheter Indwelling Catheter Indwelling Catheter # Voids 0 0 ABP, PAP, CO, CI - Last Documented Arterial Blood Pressure 110/43 - Exam General Appearance: 65-year-old male obese, intubated and mechanically ventilated, sedated, on propofol. HEENT: Atraumatic, normocephalic, PERRLA, EOMI, no icterus, no neck masses, no JVD. Lungs: Crackles at the bases bilaterally. Chest Wall: Symmetrical expansion. Heart: Irregular irregular rhythm, 2/6 systolic murmur thought the precordium. Positive JVD. Abdomen: Obese, Soft, non-tender, normal bowel sounds. Nontender. No rebound no guarding Extremities: 2+ bipedal edema, decreased pulses bilaterally.. Skin: No rashes. Normal skin turgor. Neurologic: Sedated, cannot assess neurological status, does not respond to any stimuli including painful stimuli. Psychiatric: Could not assess. - Labs CBC & Chem 7: 06/29/20 04:10 06/29/20 04:10 Labs: Abnormal Lab Results - Last 24 Hours (Table) 06/28/20 06/28/20 06/29/20 Range/Units 05:00 18:29 00:02 WBC (3.8-10.6) k/uL RBC (4.30-5.90) m/uL Hgb (13.0-17.5) gm/dL Hct (39.0-53.0) % RDW (11.5-15.5) % Neutrophils # (1.3-7.7) k/uL Lymphocytes # (1.0-4.8) k/uL ABG pCO2 (35-45) mmHg BUN (9-20) mg/dL Creatinine (0.66-1.25) mg/dL Glucose (74-99) mg/dL POC Glucose (mg/dL) 224 H 206 H (75-99) mg/dL Calcium (8.4-10.2) mg/dL Phosphorus (2.5-4.5) mg/dL Magnesium 2.5 H (1.6-2.3) mg/dL 06/29/20 06/29/20 06/29/20 Range/Units 04:10 04:10 05:04 WBC 13.8 H (3.8-10.6) k/uL RBC 3.59 L (4.30-5.90) m/uL Hgb 11.4 L (13.0-17.5) gm/dL Hct 35.6 L (39.0-53.0) % RDW 16.0 H (11.5-15.5) % Neutrophils # 12.2 H (1.3-7.7) k/uL Lymphocytes # 0.7 L (1.0-4.8) k/uL ABG pCO2 33 L (35-45) mmHg BUN 62 H (9-20) mg/dL Creatinine 7.43 H* (0.66-1.25) mg/dL Glucose 195 H (74-99) mg/dL POC Glucose (mg/dL) (75-99) mg/dL Calcium 7.5 L (8.4-10.2) mg/dL Phosphorus 5.9 H (2.5-4.5) mg/dL Magnesium (1.6-2.3) mg/dL 06/29/20 06/29/20 Range/Units 06:15 11:54 WBC (3.8-10.6) k/uL RBC (4.30-5.90) m/uL Hgb (13.0-17.5) gm/dL Hct (39.0-53.0) % RDW (11.5-15.5) % Neutrophils # (1.3-7.7) k/uL Lymphocytes # (1.0-4.8) k/uL ABG pCO2 (35-45) mmHg BUN (9-20) mg/dL Creatinine (0.66-1.25) mg/dL Glucose (74-99) mg/dL POC Glucose (mg/dL) 209 H 123 H (75-99) mg/dL Calcium (8.4-10.2) mg/dL Phosphorus (2.5-4.5) mg/dL Magnesium (1.6-2.3) mg/dL Microbiology - Last 24 Hours (Table) 06/26/20 21:39 Gram Stain - Final Sputum Sputum Culture - Final Corynebacterium species Assessment and Plan Assessment: Impression: Acute hypoxic respiratory failure secondary to acute on chronic systolic congestive heart failure and pulmonary edema. Cardiogenic shock requiring vasopressors. End-stage renal disease, requiring hemodialysis. Recent non-ST elevation myocardial infarction and angioplasty with stent placement Severe ischemic cardiomyopathy and LV dysfunction. Pulmonary hypertension. Insulin-dependent diabetes. History of aortic valve replacement for significant aortic stenosis. Dyslipidemia. Patent foramen ovale with [id number] shunt. Diabetic peripheral neuropathy. Recommendation: Patient is obviously not ready for any weaning trials. Chest x-ray shows worsening pulmonary edema. Hence: Continue ventilatory support. Continue hemodialysis Continue amiodarone Continue blood pressure support with norepinephrine. Continue GI and DVT prophylaxis. Continue antibiotics empirically. CT of the brain showed no evidence of active disease. Patient remains critically ill. We'll continue to follow. Critical care time 33 minutes Time with Patient: Greater than 30
[2020-06-29] MEDS: SEVELAMER 800 MG TAB PO SCH ×2 (13:24→17:35)
[2020-06-29 17:55] LABS: Glucose,Whole Blood 177 mg/dL (75-99)
[2020-06-29] MEDS: INSULIN DETEMIR (LEVEMIR) 100 UNIT/ML SYR SQ SCH (21:59)
[2020-06-29] MEDS ORDERED: CISATRACURIUM 200 MG in SODIUM CHLORIDE 0.9% 180 ML IV SCH (22:30)
[2020-06-29 22:38] LABS: Glucose,Whole Blood 235 mg/dL (75-99)
[2020-06-29 23:31] LABS: Glucose,Whole Blood 252 mg/dL (75-99)
[2020-06-30 04:20] LABS: Basophils # (A) 0.1 k/uL (0-0.2); Basophils % (A) 0 %; Eosinophils # (A) 0.1 k/uL (0-0.7); Eosinophils % (A) 1 %; HCT 34.8 % (39.0-53.0); HGB 10.9 gm/dL (13.0-17.5); Hypochromasia Slight; Lymphocytes # (A) 0.6 k/uL (1.0-4.8); Lymphocytes % (A) 4 %; MCH 31.4 pg (25.0-35.0); MCHC 31.5 g/dL (31.0-37.0); MCV 99.7 fL (80.0-100.0); Macrocytosis Slight; Mean Platelet Volume 7.8; Monocytes # (A) 0.5 k/uL (0-1.0); Monocytes % (A) 4 %; Neutrophils # (A) 12.6 k/uL (1.3-7.7); Neutrophils % (A) 90 %; Platelet Count 155 k/uL (150-450); RBC 3.49 m/uL (4.30-5.90); RDW 15.7 % (11.5-15.5)
[2020-06-30 04:32] LABS: Calcium 7.4 mg/dL (8.4-10.2); Magnesium 2.3 mg/dL (1.6-2.3); Potassium 4.8 mmol/L (3.5-5.1)
[2020-06-30 05:48] LABS: Glucose,Whole Blood 171 mg/dL (75-99)
[2020-06-30 05:53] LABS: ABG Base Excess -1.6 mmol/L; ABG HCO3 23 mmol/L (21-25); ABG Oxygen Saturation 95.4 % (94-97); ABG PCO2 35 mmHg (35-45); ABG PH 7.42 (7.35-7.45); ABG PO2 80 mmHg (83-108); ABG TCO2 24 mmol/L (19-24); Allen Test Performed? Yes
[2020-06-30] MEDS: NOREPINEPHRINE 32 MG in SODIUM CHLORIDE 0.9% 218 ML IV SCH ×3 (06:07→23:26)
[2020-06-30] MEDS: INSULIN ASPART (NovoLOG) 100 UNIT/ML VIAL SQ SCH ×6 (06:31→18:31)
[2020-06-30] MEDS: LEVOTHYROXINE 50 MCG TAB PO SCH (06:31)
[2020-06-30] MEDS: SEVELAMER 800 MG TAB PO SCH (06:31)
--- NOTE | 2020-06-30 07:05 | XR ---
EXAMINATION TYPE: XR chest 1V portable DATE OF EXAM: 06/30/2020 COMPARISON: 06/29/2020 HISTORY: SOB, Follow Up FINDINGS: Indwelling tubes and catheters are unchanged. Diffuse bilateral airspace infiltrates are unchanged. Stable appearance of the cardio-mediastinal structures at this time. Pleural effusion unchanged. IMPRESSION: 1. Stable portable chest. Clinical correlation and follow up until resolution is recommended.
[2020-06-30] MEDS: ASPIRIN 81 MG PO SCH (08:52)
[2020-06-30] MEDS: CHLORHEXIDINE GLUCONATE 15 ML CUP MUCOUS MEM SCH ×2 (08:52→19:46)
[2020-06-30] MEDS: AMIODARONE 200 MG TAB PO SCH ×2 (08:52→19:46)
[2020-06-30] MEDS: HEPARIN SODIUM,PORCINE 5,000 UNIT/ML 1 ML VIAL SQ SCH ×2 (08:53→19:46)
[2020-06-30] MEDS: PANTOPRAZOLE 40 MG/10 ML VIAL IVP SCH (08:53)
[2020-06-30] MEDS: ATORVASTATIN 40 MG TAB PO SCH (08:53)
[2020-06-30] MEDS: CLOPIDOGREL 75 MG TAB PO SCH (08:53)
[2020-06-30] MEDS: CEFEPIME 1 GM in SODIUM CHLORIDE 0.9% 50 ML IVPB SCH (08:55)
[2020-06-30] MEDS ORDERED: DOBUTamine DRIP 500 MG in DEXTROSE/WATER 1 250ML.BAG IV SCH (09:30)
[2020-06-30] MEDS ORDERED: SODIUM CHLORIDE 0.9% 150 ML with VASOPRESSIN 60 UNIT IV SCH ×2 (11:15)
[2020-06-30 11:31] LABS: Glucose,Whole Blood 109 mg/dL (75-99)
--- NOTE | 2020-06-30 13:34 | P.PN ---
Subjective Patient is seen for follow-up for ESRD. Currently intubated on 40% FiO2. On levophed and vasopressin. He was also started on dobutamine. Tolerating dialysis well this morning. Receiving tube feeding. Heart rate has been stable. He is off sedation but still not very responsive. Vital signs are stable. Currently on vasopressor support. General: The patient appeared well nourished and normally developed. HEENT: Head exam is unremarkable. Intubated. LUNGS: Breath sounds decreased. HEART: Rate and Rhythm are regular. ABDOMEN: Soft, nontender. EXTREMITITES: 2+ edema. Chronic changes noted. Objective - Vital Signs Vital signs: Vital Signs Temp 99.5 F 06/30/20 12:00 Pulse 80 06/30/20 12:00 Resp 21 06/30/20 12:00 BP 129/66 06/30/20 12:00 Pulse Ox 96 06/30/20 12:00 Intake & Output 06/29/20 06/30/20 06/30/20 18:59 06:59 18:59 Intake Total 2378.020 3368.214 603.118 Output Total 1525 21 5 Balance -449.604 8959.214 598.118 Weight 109.6 kg 106.6 kg Intake: IV 446 306 298 0.9 360 270 180 Cefepime 1 gm In Sodium 50 100 Chloride 0.9% 50 ml @ 12. 5 mls/hr IVPB Q12HR [facility] Rx#:[id number] pressure bag 36 36 18 Intake, IV Titration 454.751 517.214 202.118 Amount Norepinephrine 32 mg In 163.145 246.361 146.683 Sodium Chloride 0.9% 218 ml @ 0.5 MCG/KG/MIN 25. 992 mls/hr IV .Q9H38M [facility] Rx#:[id number] propofoL 1,000 mg In 291.606 270.853 55.435 Empty Bag 1 bag @ Titrate IV .Q0M [facility] Rx#: [id number] Tube Feeding 262 221 73 Other 90 90 30 Output: Urine 25 21 5 Hemodialysis 1500 Other: Voiding Method Indwelling Catheter Indwelling Catheter # Bowel Movements 1 ABP, PAP, CO, CI - Last Documented Arterial Blood Pressure 138/60 - Labs CBC & Chem 7: 06/30/20 03:40 06/30/20 03:40 Labs: Abnormal Lab Results - Last 24 Hours (Table) 06/29/20 06/29/20 06/29/20 Range/Units 17:54 22:37 23:30 WBC (3.8-10.6) k/uL RBC (4.30-5.90) m/uL Hgb (13.0-17.5) gm/dL Hct (39.0-53.0) % RDW (11.5-15.5) % Neutrophils # (1.3-7.7) k/uL Lymphocytes # (1.0-4.8) k/uL ABG pO2 (83-108) mmHg Sodium (137-145) mmol/L BUN (9-20) mg/dL Creatinine (0.66-1.25) mg/dL Glucose (74-99) mg/dL POC Glucose (mg/dL) 177 H 235 H 252 H (75-99) mg/dL Calcium (8.4-10.2) mg/dL 06/30/20 06/30/20 06/30/20 Range/Units 03:40 03:40 05:45 WBC 14.0 H (3.8-10.6) k/uL RBC 3.49 L (4.30-5.90) m/uL Hgb 10.9 L (13.0-17.5) gm/dL Hct 34.8 L (39.0-53.0) % RDW 15.7 H (11.5-15.5) % Neutrophils # 12.6 H (1.3-7.7) k/uL Lymphocytes # 0.6 L (1.0-4.8) k/uL ABG pO2 80 L (83-108) mmHg Sodium 134 L (137-145) mmol/L BUN 57 H (9-20) mg/dL Creatinine 6.24 H (0.66-1.25) mg/dL Glucose 182 H (74-99) mg/dL POC Glucose (mg/dL) (75-99) mg/dL Calcium 7.4 L (8.4-10.2) mg/dL 06/30/20 06/30/20 Range/Units 05:47 11:30 WBC (3.8-10.6) k/uL RBC (4.30-5.90) m/uL Hgb (13.0-17.5) gm/dL Hct (39.0-53.0) % RDW (11.5-15.5) % Neutrophils # (1.3-7.7) k/uL Lymphocytes # (1.0-4.8) k/uL ABG pO2 (83-108) mmHg Sodium (137-145) mmol/L BUN (9-20) mg/dL Creatinine (0.66-1.25) mg/dL Glucose (74-99) mg/dL POC Glucose (mg/dL) 171 H 109 H (75-99) mg/dL Calcium (8.4-10.2) mg/dL Microbiology - Last 24 Hours (Table) 06/26/20 21:39 Gram Stain - Final Sputum Sputum Culture - Final Corynebacterium species Assessment and Plan Plan: Assessment: 1. End-stage renal disease maintained on hemodialysis on Sunday schedule. 2. Acute on chronic systolic CHF with ejection fraction of 20-25% with severe aortic regurgitation, moderate to severe mitral regurgitation, moderate tricuspid regurgitation. 3. Fluid overload. 4. History of coronary artery disease status post CABG with recent stenting of the right coronary artery. 5. Cardiogenic shock maintained on Levophed and vasopressin and dobutamine at this time. 6. Chronic kidney disease mineral bone disease. 7. Hyponatremia secondary to CKD. Hypervolemic. 8. Runs of V. tach s/p amiodarone drip. Cardiology following. Stable. Plan: Currently seen while undergoing hemodialysis using low flows for hemodynamic support. Continue to assess on daily basis. Wean FiO2 and vasopressors. Overall prognosis guarded. Maintain tube feeding. I will change Renvela to PhosLo as Renvela can't be given with tube feeding.
--- NOTE | 2020-06-30 14:41 | P.PN ---
Subjective Progress Note Date: 06/30/20 HISTORY OF PRESENT ILLNESS 65-year-old male one of my office patient with past medical history of end-stage renal disease Advanced cardiomyopathy, history of diabetes, systolic congestive heart failure, pulmonary hypertension, and multiple other medical problem who is known to have history of coronary disease with MCDERMOTT to the LAD in 2000 and stenting of the circumflex in 2018 recent stenting of the RCA and 06/15/2020 with cardiac arrest after heart catheter on 06-15 with PEA, aortic valve placement back in 2014 at [facility]. Patient left the hospital 2 days ago after long hospitalization for his intubation mechanical ventilation after his cardiac arrest from his heart catheter ended up on mechanical ventilation and vasopressor for many days finally was extubated successfully and done well was taking of vasopressor his hemoglobin was low patient continued having slight chest pain but with controlled with medication. 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 Rivera finding of unchanged coronary artery disease compared to the heart cath and 06/15/2020 with patent RCA, 85 percentile mid LAD stenosis with patent MCDERMOTT to the LAD and known 100% occlusion of the circumflex, patient cardiac output remained 3.9 L/m increased right to left sided pressure, group 2 pulmonary hypertension with pressure over 55 mmHg, also had significant abnormality in the aortic valve with difficult crossing which can be consistent with severe stenosis. Patient finishes procedure successfully was transferred to the ICU for symptoms control his ejection fraction remain less than 25%. 06/25: Patient was discharged to ICU on BiPAP but desatted during the night and became hypotensive. He required intubation and remains on mechanical ventilation with tidal volume 500, FiO2 40, PEEP of 5. Patient is also on norepinephrine. 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 Repeat chest x-ray this morning reveals no large pneumothorax. Diffuse infiltrates and small right pleural effusion similar to earlier exam. Patient had hemodialysis this morning with removal of 2.5 liters. Repeat blood work reveals WBC 17.3, hemoglobin 12.6. Sodium 132, potassium 4.5, chloride 96, CO2 23, BUN 33 and creatinine 4.61. Blood sugar 158. 06/26: Patient remains intubated with tidal volume 500, FiO2 40, PEEP of 5. Patient is also on high-dose norepinephrine and maxed onto per Van. Repeat chest x-ray reveals progressive airspace infiltrates throughout both lung ruiz small effusion suspected. He is scheduled for repeat hemodialysis today. MOISÉS revealed dilated left atrium with normal appearance of the left atrial appendage. Severe global hypokinesia. Bioprosthetic aortic valve with evidence of mild aortic regurgitation, severe aortic regurgitation with gradient of 30 mmHg with peak of 60 mmHg. Moderate to severe mitral regurgitation with moderate tricuspid regurgitation. Mild pulmonary hypertension. Evidence of patent foramen ovale with predominantly [id number] shunting. No pericardial effusion. 06/27: Patient remains intubated and on mechanical ventilation with tidal volume 500, FiO2 40, PEEP of 5. He also remains on propofol and norepinephrine. Blood pressure 103/46, heart rate 80, afebrile. Repeat lab work reveals a BB 616, hemoglobin 12.4, platelet count 210. Sodium 136, potassium 4.9, chloride 102, CO2 20, BUN 15 creatinine 6.32. Patient is scheduled for hemodialysis today with plan to remove 3 L. 06/28: Patient remains in the intensive care unit on mechanical ventilation with tidal volume 500, FiO2 40, PEEP of 5. Patient is also on propofol and norepinephrine. Patient had runs of V. tach this morning while he was on hemodialysis and this had to be discontinued. He has been afebrile, heart rate 84, blood pressure 109/44, pulse ox 97% on mechanical ventilation. Repeat blood work reveals WBC 16.5, hemoglobin 12.2. Electrolytes normal, BUN 15 creatinine 6.38. Blood sugars running in the 200s and 4 units of NovoLog scheduled added. Plan is to call patient's and updated her regarding his current situation. 06/29: Patient remains intubated and on mechanical ventilation with pulse ox of 99%, tidal volume 500, FiO2 40, PEEP of 5. He has been afebrile, heart rate 73, blood pressure 122/52. environmental monitoring specialist is a sinus rhythm with occasional PVCs. Patient is undergoing hemodialysis today with plan for removal of 2 L of fluid. Repeat chest x-ray reveals continued cardiomegaly, right greater than left diffuse airspace disease and likely underlying effusions. Correlate for heart failure with pulmonary edema slightly worsened. CAT scan of the brain showed mild atrophy. No acute intracranial abnormality. No change. WBC 13.8, hemoglobin 11.4. Electrolytes normal, BUN 62, creatinine 7.43. The patient's has made him a no CODE STATUS. The patient is on oral tube feedings with Nepro. 06/30: Patient remains intubated and on mechanical ventilation. He is off sedation for an hour and a half and is not responding. Dobutamine drip to be started, he is currently on norepinephrine. Vent settings are tidal volume 500, FiO2 40, PEEP of 5. Patient is scheduled for dialysis today. Repeat chest x- ray is stable. He has been afebrile, heart rate 80, blood pressure 138/60, pulse ox 96%. REVIEW OF SYSTEMS Unable to obtain due to intubation. PHYSICAL EXAMINATION General Appearance: no distress, appears stated age. Patient appears to be comfortable Neck HEENT: Supple, no lymphadenopathy, no thyroid enlargement, no carotid bruits. Intubated and on mechanical ventilation and appears comfortable. Lungs: Decreased breath sounds bilaterally Chest Wall: no deformity was found on exam, no costochondral pain or discomfort. Heart: Irregular rate and rhythm, S1, S2 positive history positive systolic murm ur With JVD. Back: Symmetric, no curvature, ROM normal, no CVA tenderness. Abdomen: Soft, non-tender, bowel sounds active all four quadrants, no masses, no organomegaly. Alberts catheter was small amount of urine. Extremities: Extremities 2+ edema decreased pulse bilaterally. Pulses: 2+ and symmetric. Skin: Skin color, texture, tugor normal, no rashes or lesions. Neurologic: Sedated and on mechanical ventilation. ASSESSMENT AND PLAN 1 unstable angina and recurrent chest pain with recent history of myocardial infarction as non-ST MN post angioplasty and stent placement patient continued to be symptomatic at this point patient was admitted to the hospital, heart cath eter was performed no change from last time significant finding with multiple coronary a disease along with angioplasty. Continue aspirin, atorvastatin, Plavix, Lopressor on hold due to hypotension. 2 acute hypoxic respiratory failure requiring intubation and mechanical ventilation secondary to pulmonary edema, acute on chronic systolic heart failure. Pulmonary medicine on consult. 3 cardiogenic shock requiring vasopressors. Patient managed in the intensive care unit. Patient is currently on norepinephrine and dobutamine drip starting today. 4 end-stage renal disease on hemodialysis 3 times a week. Hemodialysis today. 5 severe ischemic cardiomyopathy with significantly low ejection fraction and chronic systolic heart failure: Continue medical management and continue to mobilize free fluid consult. 6 pulmonary hypertension on medical management currently. 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 Patient started on insulin scale every 6 hours and 4 units scheduled every 6, Levemir 15 units at bedtime. 8 post aortic valve placement with significant stenosis finding on heart cath patient might need transesophageal echocardiogram for better view of the aortic valve structure. 9 no history of atrial fibrillation per cardiology. 10 hyperlipidemia: Remain on atorvastatin. 11 BPH. Alberts catheter in place. 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 13 GI prophylaxis: Protonix daily. 14 DVT prophylaxis: Will be on anticoagulation. 15. Episodes of ventricular tachycardia while on dialysis. Dialysis treatment was discontinued. CODE STATUS: Full code. Prognosis guarded. DISCHARGE PLAN To be determined. Impression and plan of care have been directed as dictated by the signing physician. Tomasa Atkins nurse practitioner acting as scribe for signing physician. Objective - Vital Signs Vital signs: Vital Signs Temp 99.6 F 06/30/20 04:00 Pulse 68 06/30/20 07:00 Resp 29 H 06/30/20 07:00 BP 67/40 06/30/20 04:30 Pulse Ox 97 06/30/20 07:00 Intake & Output 06/29/20 06/30/20 06/30/20 18:59 06:59 18:59 Intake Total 6704.684 4639.214 172.790 Output Total 1525 21 Balance -399.298 2837.214 172.790 Weight 109.6 kg 106.6 kg Intake: IV 446 306 33 0.9 360 270 30 Cefepime 1 gm In Sodium 50 Chloride 0.9% 50 ml @ 12. 5 mls/hr IVPB Q12HR [facility] Rx#:[id number] pressure bag 36 36 3 Intake, IV Titration 454.751 517.214 122.790 Amount Norepinephrine 32 mg In 163.145 246.361 67.355 Sodium Chloride 0.9% 218 ml @ 0.5 MCG/KG/MIN 25. 992 mls/hr IV .Q9H38M [facility] Rx#:[id number] propofoL 1,000 mg In 291.606 270.853 55.435 Empty Bag 1 bag @ Titrate IV .Q0M [facility] Rx#: [id number] Tube Feeding 262 221 17 Other 90 90 Output: Urine 25 21 Hemodialysis 1500 Other: Voiding Method Indwelling Catheter Indwelling Catheter # Bowel Movements 1 ABP, PAP, CO, CI - Last Documented Arterial Blood Pressure 112/47 - Labs CBC & Chem 7: 06/30/20 03:40 06/30/20 03:40 Labs: Abnormal Lab Results - Last 24 Hours (Table) 06/29/20 06/29/20 06/29/20 Range/Units 11:54 17:54 22:37 WBC (3.8-10.6) k/uL RBC (4.30-5.90) m/uL Hgb (13.0-17.5) gm/dL Hct (39.0-53.0) % RDW (11.5-15.5) % Neutrophils # (1.3-7.7) k/uL Lymphocytes # (1.0-4.8) k/uL ABG pO2 (83-108) mmHg Sodium (137-145) mmol/L BUN (9-20) mg/dL Creatinine (0.66-1.25) mg/dL Glucose (74-99) mg/dL POC Glucose (mg/dL) 123 H 177 H 235 H (75-99) mg/dL Calcium (8.4-10.2) mg/dL 06/29/20 06/30/20 06/30/20 Range/Units 23:30 03:40 03:40 WBC 14.0 H (3.8-10.6) k/uL RBC 3.49 L (4.30-5.90) m/uL Hgb 10.9 L (13.0-17.5) gm/dL Hct 34.8 L (39.0-53.0) % RDW 15.7 H (11.5-15.5) % Neutrophils # 12.6 H (1.3-7.7) k/uL Lymphocytes # 0.6 L (1.0-4.8) k/uL ABG pO2 (83-108) mmHg Sodium 134 L (137-145) mmol/L BUN 57 H (9-20) mg/dL Creatinine 6.24 H (0.66-1.25) mg/dL Glucose 182 H (74-99) mg/dL POC Glucose (mg/dL) 252 H (75-99) mg/dL Calcium 7.4 L (8.4-10.2) mg/dL 06/30/20 06/30/20 Range/Units 05:45 05:47 WBC (3.8-10.6) k/uL RBC (4.30-5.90) m/uL Hgb (13.0-17.5) gm/dL Hct (39.0-53.0) % RDW (11.5-15.5) % Neutrophils # (1.3-7.7) k/uL Lymphocytes # (1.0-4.8) k/uL ABG pO2 80 L (83-108) mmHg Sodium (137-145) mmol/L BUN (9-20) mg/dL Creatinine (0.66-1.25) mg/dL Glucose (74-99) mg/dL POC Glucose (mg/dL) 171 H (75-99) mg/dL Calcium (8.4-10.2) mg/dL Microbiology - Last 24 Hours (Table) 06/26/20 21:39 Gram Stain - Final Sputum Sputum Culture - Final Corynebacterium species
--- NOTE | 2020-06-30 15:37 | P.PN ---
Subjective Progress Note Date: 06/30/20 Principal diagnosis: Acute hypoxic respiratory failure secondary to pulmonary edema and acute on chronic systolic congestive heart failure 65-year-old male patient who came into the hospital because of an acute chest pain. Unstable angina was suspected as the patient has known history of cardiac disease and coronary artery disease and the patient underwent a recent coronary intervention and stenting of the RCA by Dr. Cordero and this was done on 06/15/2020. Note that post cardiac catheterization the patient also had a brief cardiopulmonary arrest with a PEA rhythm and the patient was resuscitated successfully without any signs of anoxic encephalopathy and the patient was discharged home. Noted the patient had developed carotid myopathy and there was a drop in the patient's left and ejection fraction of 25%. This was not explained on the basis of coronary artery disease and expect cause for his drop in the LV has not been established. The patient is known to have CAD and he has undergone previous bypass surgery. His MCDERMOTT to LAD and this was done 2000. He has undergone previous stenting to the circumflex on previous evaluations. Note that during this current admission, the patient had chest pain. Cardiac enzymes were essentially downtrending from recent KS and the troponin was noted to 0.7. The patient was taken to catheterization and the patient was found to have a patent MCDERMOTT to LAD, patent stent in the RCA. No acute intervention was done. The patient had a right coronary system with a mid 40% stenosis distal to the stent. There was mild disease in the PDA and PLV. Circumflex system was percent occluded. The pulmonary capillary wedge pressure was 38. PA pressures were 76/31. Cardiac output was at 3.88. Following that, the patient was sent to the intensive care unit. Once in ICU, the patient was found to be in acute respiratory distress. He was severely hypoxic and he was becoming more unresponsive and he was breathing in the high 40s. At that point, the patient was intubated and placed on mechanical ventilation. Post intubation, the patient became profoundly hypotensive and the patient is currently requiring high-dose pressors for hemodynamic support. The patient currently is an assist- control mode of ventilation at the rate of 18 with a tidal volume of 500 and FiO2 of 40% with a PEEP of 5. Norepinephrine infusion is running at 0.5 g per KG per minute. The patient is sedated with propofol at 50 mg per KG per minute. IV fluids are currently at KVO. The MOISÉS was done today and the patient had evidence of global hypokinesis with an ejection fraction of 25-30%. The aortic valve was bioprosthetic and a peak gradient across the aortic valve was 60 with a mean gradient of 30 mmHg. There was moderate to severe mitral regurgitation and moderate tricuspid regurgitation and the right ventricular systolic pressure was estimated to be 48. There was dilatation of the r left atrium along with mild aortic regurgitation at the level of the bioprosthetic aortic valve and moderate severe mitral regurgitation and mild pulmonary hypertension. No evidence of any [id number] shunting and there was no evidence of any pericardial effusion. Note that overnight, nephrology was consulted and the patient was given a session of dialysis today total of 2 L of ultrafiltration per chest x-ray still showing evidence of CHF and cardiomegaly and pulmonary edema. On 06/26/2020 the patient is being seen for a follow-up. He remains sedated on propofol at 45 g. Remains in cardiogenic shock and the patient is still hy potensive requiring pressors and the patient is on an norepinephrine infusion running at 0.31mcg/kg per minute. IV fluids are still at KVO. The patient underwent hemodialysis yesterday and a second session will be done today with ultrafiltration. He continues to have edema in the lower extremities and the chest x-ray still showing pulmonary edema with cardiomegaly. Nevertheless, the oxygenation itself is improved and the patient is currently on assist control mode at the rate of 60 with either volume of 500 and FiO2 of 40% with a PEEP of 5. The blood gases showed a pH of 7.45 with a pCO2 of 34 and pO2 of 94. The patient will be started on enteral feeding for nutritional support. No fever. He doesn't produce a whole lot of urine output. Hemoglobin is at 12.5. The patient also has a BUN of 54 with a creatinine of 6.8. Calcium level is at 7.3. Discussed the case with nephrology in regards to proceed with another session of hemodialysis today. 06/27/2020, the patient remains sedated on a mechanical ventilator. The patient remains hypotensive requiring pressors although at the lower dose. Norepinephrine infusion is running at 0.4 mg per KG per minute. The patient is sedated with propofol with running at 40 g per KG per minute. IV fluids are at KVO. The patient underwent hemodialysis yesterday with a total of 2.5 L of fluid was removed. Another session of hemodialysis to be done today. Nevertheless, the chest x-ray still showing pulmonary edema and cardiomegaly. There is still edema in lower extremities bilaterally. Another session of hemodialysis to follow today. The patient remains on a mechanical ventilator. The patient is an assist-control mode at the rate of 60 with a tidal volume of 500 and FiO2 of 40% with a PEEP of 5. The patient's blood gases from today shows a pH of 7.4 with a pCO2 of 34 and pO2 95. White cell count at 16. Hemoglobin was at 12.4.. The patient is a creatinine of 6.3 with a BUN of 50. Urine output is minimal at this point in time. The patient was also started enteral feeding for nutritional support. IV antibiotics with empiric coverage will be started with IV cefepime. Patient was reevaluated today on 06/28/20, remains in the ICU, intubated, sedated, on mechanical ventilation. Patient is on assist control rate of 16 volume is 500 FiO2 is 40% PEEP is 5. ABG showed a pO2 of 84 pCO2 of 33 pH of 7.43. Patient is unresponsive to deep painful stimuli. Chest x-ray continues to show evidence of pulmonary edema. Patient is on norepinephrine at 0.38 mcg/kg/m, he is on propofol at 15 which I recommended to placed on hold. Patient is also on enteral feeding/MOPP pro at 17 mL per hour. Patient was intubated on the . He has a left subclavian central line, and a left radial arterial line. Patient did not tolerate hemodialysis today. Still requiring significant pressors for hemodynamic support. Not quite ready for weaning, however I have instructed that we hold propofol, addressed mental status, and if no responses, patient will have to go for a CT of the brain. WBC count today 16.5 hemoglobin is 12.2 electrolytes are normal ABG showed a pO2 of 84 pCO2 of 33 pH of 7.43. BUN is 50 creatinine 6.38. Chest x-ray continues to show evidence of pulmonary edema. Reevaluated today on 06/29/20, patient remains in the ICU, intubated and mechanically ventilated. Patient may be dialyzed today, chest x-ray clearly shows evidence of worsening pulmonary edema. Ventilator settings are assist control rate 16, tidal volume is 500 FiO2 is 40% PEEP is 5. ABG showed a pO2 of 91 pCO2 of 33 pH of 7.43. Patient remains on norepinephrine at 54 mcg/m, he is on propofol at 35 mcg/kg/m, she is also on amiodarone 0.5 g per hour. Patient is supposed to receive dialysis today. His CODE STATUS was changed last night to DO NOT RESUSCITATE as per his . Patient remains on enteral feeding, receiving Nepro. Supposed to have dialysis and 2 L to be removed likely today. Chest x-ray is concerning as it shows worsening pulmonary edema. I believe he count today is 13.8 hemoglobin is 11.4. Electrolytes are normal BUN is 62 creatinine 7.43 Reevaluated today on 06/30/20, patient remains in the ICU, intubated and mechanically ventilated. His ventilator settings are assist control rate of 16 tidal volume is 500 FiO2 is 40%, PEEP is 5. ABG today showed a pO2 of 80 pCO2 of 35 pH of 7.42. Chest x-ray has shown improvement mostly because the patient had adequate hemodialysis yesterday and ultrafiltration, his pulmonary edema seems to be better on the chest x-ray today compared to yesterday. And this is being reflected on his ABG. Patient remains on norepinephrine at 0.39 mcg/kg/m, propofol 55 mcg/kg/m, IV fluid is at KVO, I went ahead today and I added Dobutrex for inotropic support, hoping that we could cut down on the norepinephrine dose. May even have to consider vasopressin for low blood pressure. Patient remains on TPN, and that seems to be fairly well tolerated. Mentation is to be assessed today, hence I have recommended and instructed that would hold propofol, and at least get an adequate assessment of mental status. Electrolytes are normal BUN is 57 creatinine 6.24. WBC count is 14 hemoglobin is 10.9. Objective - Vital Signs Vital signs: Vital Signs Temp 99.5 F 06/30/20 12:00 Pulse 73 06/30/20 14:00 Resp 18 06/30/20 14:00 BP 129/66 06/30/20 12:00 Pulse Ox 96 06/30/20 14:00 Intake & Output 06/29/20 06/30/20 06/30/20 18:59 06:59 18:59 Intake Total 0087.813 5817.214 787.118 Output Total 1525 21 5 Balance -667.079 4683.214 782.118 Weight 109.6 kg 106.6 kg Intake: IV 446 306 364 0.9 360 270 240 Cefepime 1 gm In Sodium 50 100 Chloride 0.9% 50 ml @ 12. 5 mls/hr IVPB Q12HR [facility] Rx#:[id number] pressure bag 36 36 24 Intake, IV Titration 454.751 517.214 202.118 Amount Norepinephrine 32 mg In 163.145 246.361 146.683 Sodium Chloride 0.9% 218 ml @ 0.5 MCG/KG/MIN 25. 992 mls/hr IV .Q9H38M [facility] Rx#:[id number] propofoL 1,000 mg In 291.606 270.853 55.435 Empty Bag 1 bag @ Titrate IV .Q0M [facility] Rx#: [id number] Tube Feeding 262 221 161 Other 90 90 60 Output: Urine 25 21 5 Hemodialysis 1500 Other: Voiding Method Indwelling Catheter Indwelling Catheter # Bowel Movements 1 ABP, PAP, CO, CI - Last Documented Arterial Blood Pressure 60/54 - Exam General Appearance: 65-year-old male obese, intubated and mechanically ventilated, sedated, on propofol. HEENT: Atraumatic, normocephalic, PERRLA, EOMI, no icterus, no neck masses, no JVD. Lungs: Crackles at the bases bilaterally. Chest Wall: Symmetrical expansion. Heart: Irregular irregular rhythm, 2/6 systolic murmur thought the precordium. Positive JVD. Abdomen: Obese, Soft, non-tender, normal bowel sounds. Nontender. No rebound no guarding Extremities: Trace of bipedal edema, decreased pulses bilaterally.. Skin: No rashes. Normal skin turgor. Neurologic: Sedated, opens eyes, but does not follow any instructions in response to deep painful stimuli. Psychiatric: Could not assess. - Labs CBC & Chem 7: 06/30/20 03:40 06/30/20 03:40 Labs: Abnormal Lab Results - Last 24 Hours (Table) 06/29/20 06/29/20 06/29/20 Range/Units 17:54 22:37 23:30 WBC (3.8-10.6) k/uL RBC (4.30-5.90) m/uL Hgb (13.0-17.5) gm/dL Hct (39.0-53.0) % RDW (11.5-15.5) % Neutrophils # (1.3-7.7) k/uL Lymphocytes # (1.0-4.8) k/uL ABG pO2 (83-108) mmHg Sodium (137-145) mmol/L BUN (9-20) mg/dL Creatinine (0.66-1.25) mg/dL Glucose (74-99) mg/dL POC Glucose (mg/dL) 177 H 235 H 252 H (75-99) mg/dL Calcium (8.4-10.2) mg/dL 06/30/20 06/30/20 06/30/20 Range/Units 03:40 03:40 05:45 WBC 14.0 H (3.8-10.6) k/uL RBC 3.49 L (4.30-5.90) m/uL Hgb 10.9 L (13.0-17.5) gm/dL Hct 34.8 L (39.0-53.0) % RDW 15.7 H (11.5-15.5) % Neutrophils # 12.6 H (1.3-7.7) k/uL Lymphocytes # 0.6 L (1.0-4.8) k/uL ABG pO2 80 L (83-108) mmHg Sodium 134 L (137-145) mmol/L BUN 57 H (9-20) mg/dL Creatinine 6.24 H (0.66-1.25) mg/dL Glucose 182 H (74-99) mg/dL POC Glucose (mg/dL) (75-99) mg/dL Calcium 7.4 L (8.4-10.2) mg/dL 06/30/20 06/30/20 Range/Units 05:47 11:30 WBC (3.8-10.6) k/uL RBC (4.30-5.90) m/uL Hgb (13.0-17.5) gm/dL Hct (39.0-53.0) % RDW (11.5-15.5) % Neutrophils # (1.3-7.7) k/uL Lymphocytes # (1.0-4.8) k/uL ABG pO2 (83-108) mmHg Sodium (137-145) mmol/L BUN (9-20) mg/dL Creatinine (0.66-1.25) mg/dL Glucose (74-99) mg/dL POC Glucose (mg/dL) 171 H 109 H (75-99) mg/dL Calcium (8.4-10.2) mg/dL Microbiology - Last 24 Hours (Table) 06/26/20 21:39 Gram Stain - Final Sputum Sputum Culture - Final Corynebacterium species Assessment and Plan Assessment: Impression: Acute hypoxic respiratory failure secondary to acute on chronic systolic congestive heart failure and pulmonary edema. Cardiogenic shock requiring vasopressors. End-stage renal disease, requiring hemodialysis. Recent non-ST elevation myocardial infarction and angioplasty with stent placement Severe ischemic cardiomyopathy and LV dysfunction. Pulmonary hypertension. Insulin-dependent diabetes. History of aortic valve replacement for significant aortic stenosis. Dyslipidemia. Patent foramen ovale with [id number] shunt. Diabetic peripheral neuropathy. Recommendation: Continue hemodynamic support, patient will remain on norepinephrine, will add dobutamine, at 2.5 mcg/kg/m, may have to even and vasopressin for hemodynamic support. Patient is obviously not ready for any weaning trials. Continue ventilatory support. Continue hemodialysis Continue amiodarone Continue GI and DVT prophylaxis. Continue antibiotics empirically. Patient remains critically ill. Discussed his condition with cardiology on the case. We'll continue to follow. Critical care time over 30 minutes. Time with Patient: Greater than 30
--- NOTE | 2020-06-30 17:39 | P.PN ---
Subjective Progress Note Date: 06/30/20 This is a 65-year-old male past medical history significant for end-stage renal disease, coronary artery disease s/p bypass grafting with MCDERMOTT-LAD 2000, PCI circumflex 2017 and RCA 06/15/2020, diabetes mellitus, pulmonary hypertension, valvular heart disease status post aortic valve replacement and dyslipidemia. He is seen and examined resting comfortably on sedation and mechanical ventilation. He is having frequent PVC's on the monitor and is on oral amidarone. ICU added Dobutamine with an attempt to wean high doses of Levophed. He does still have a left radial artery A line in and has cool digits and small hematoma of the left forearm. Has been intermittently tolerating dialysis with fluid taken off daily and decreased O2 requirements. GENERAL: No acute distress. On vent NECK: Supple without JVD or thyromegaly. LUNGS: Scattered rhonchi, improved from previous exam. Respiration equal and unlabored. HEART: Irregular rate and rhythm with systolic ejection murmur at the base, no rubs or gallops. S1 and S2 heard. Distant heart sounds. EXTREMITIES: Diffuse edema with some weeping of the left lower extremity. No clubbing or cyanosis. ASSESSMENT Non-ST elevated myocardial infarction Cardiogenic shock Acute systolic heart failure acute hypoxic respiratory failure Ischemic cardiomyopathy Ventricular tachycardia History of bioprosthetic aortic valve replacement 2014 with at least moderate and likely low flow low gradient severe by MOISÉS. Diabetes mellitus Hypertension End-stage renal disease on hemodialysis Dyslipidemia PLAN Continue oral amiodarone 400 mg BID to taper weekly. Patient has had worsened EF during previous admission, not entirely explained by RCA stent as cardiomyopathy appears predominantly global. Continue with supportive care, dual antiplatelets. RHC at presentation consistent with cardiogenic shock and elevated left sided pressures. Continue volume reduction by dialysis. Agree with trial of Dobutamine however this may exacerbate his VT. No BBlocker given cardiogenic shock. If patient able to be extubated and relatively stable, may consider further transfer and advanced workup for possible balloon aortic valvuloplasty, TAVR or LVAD. Family made patient a No Code yesterday. Prognosis guarded. Objective - Vital Signs Vital signs: Vital Signs Temp 99.5 F 06/30/20 12:00 Pulse 72 06/30/20 17:00 Resp 21 06/30/20 17:00 BP 129/66 06/30/20 12:00 Pulse Ox 99 06/30/20 17:00 Intake & Output 06/29/20 06/30/20 06/30/20 18:59 06:59 18:59 Intake Total 3817.903 2733.214 992.059 Output Total 1525 21 5 Balance -382.490 8376.214 987.059 Weight 109.6 kg 106.6 kg Intake: IV 446 306 430 0.9 360 270 300 Cefepime 1 gm In Sodium 50 100 Chloride 0.9% 50 ml @ 12. 5 mls/hr IVPB Q12HR [facility] Rx#:[id number] pressure bag 36 36 30 Intake, IV Titration 454.751 517.214 297.059 Amount Norepinephrine 32 mg In 163.145 246.361 241.624 Sodium Chloride 0.9% 218 ml @ 0.5 MCG/KG/MIN 25. 992 mls/hr IV .Q9H38M [facility] Rx#:[id number] propofoL 1,000 mg In 291.606 270.853 55.435 Empty Bag 1 bag @ Titrate IV .Q0M [facility] Rx#: [id number] Tube Feeding 262 221 205 Other 90 90 60 Output: Urine 25 21 5 Hemodialysis 1500 Other: Voiding Method Indwelling Catheter Indwelling Catheter Indwelling Catheter # Bowel Movements 1 ABP, PAP, CO, CI - Last Documented Arterial Blood Pressure 121/51 - Labs CBC & Chem 7: 06/30/20 03:40 06/30/20 03:40 Labs: Abnormal Lab Results - Last 24 Hours (Table) 06/29/20 06/29/20 06/29/20 Range/Units 17:54 22:37 23:30 WBC (3.8-10.6) k/uL RBC (4.30-5.90) m/uL Hgb (13.0-17.5) gm/dL Hct (39.0-53.0) % RDW (11.5-15.5) % Neutrophils # (1.3-7.7) k/uL Lymphocytes # (1.0-4.8) k/uL ABG pO2 (83-108) mmHg Sodium (137-145) mmol/L BUN (9-20) mg/dL Creatinine (0.66-1.25) mg/dL Glucose (74-99) mg/dL POC Glucose (mg/dL) 177 H 235 H 252 H (75-99) mg/dL Calcium (8.4-10.2) mg/dL 06/30/20 06/30/20 06/30/20 Range/Units 03:40 03:40 05:45 WBC 14.0 H (3.8-10.6) k/uL RBC 3.49 L (4.30-5.90) m/uL Hgb 10.9 L (13.0-17.5) gm/dL Hct 34.8 L (39.0-53.0) % RDW 15.7 H (11.5-15.5) % Neutrophils # 12.6 H (1.3-7.7) k/uL Lymphocytes # 0.6 L (1.0-4.8) k/uL ABG pO2 80 L (83-108) mmHg Sodium 134 L (137-145) mmol/L BUN 57 H (9-20) mg/dL Creatinine 6.24 H (0.66-1.25) mg/dL Glucose 182 H (74-99) mg/dL POC Glucose (mg/dL) (75-99) mg/dL Calcium 7.4 L (8.4-10.2) mg/dL 06/30/20 06/30/20 Range/Units 05:47 11:30 WBC (3.8-10.6) k/uL RBC (4.30-5.90) m/uL Hgb (13.0-17.5) gm/dL Hct (39.0-53.0) % RDW (11.5-15.5) % Neutrophils # (1.3-7.7) k/uL Lymphocytes # (1.0-4.8) k/uL ABG pO2 (83-108) mmHg Sodium (137-145) mmol/L BUN (9-20) mg/dL Creatinine (0.66-1.25) mg/dL Glucose (74-99) mg/dL POC Glucose (mg/dL) 171 H 109 H (75-99) mg/dL Calcium (8.4-10.2) mg/dL Microbiology - Last 24 Hours (Table) 06/26/20 21:39 Gram Stain - Final Sputum Sputum Culture - Final Corynebacterium species
[2020-06-30 17:42] LABS: Glucose,Whole Blood 166 mg/dL (75-99)
[2020-06-30] MEDS: CALCIUM ACETATE 667 MG TAB PO SCH (18:31)
[2020-06-30 19:45] LABS: Glucose,Whole Blood 195 mg/dL (75-99)
[2020-06-30] MEDS: INSULIN DETEMIR (LEVEMIR) 100 UNIT/ML SYR SQ SCH (19:46)
[2020-06-30 23:50] LABS: Glucose,Whole Blood 129 mg/dL (75-99)
[2020-07-01] MEDS: INSULIN ASPART (NovoLOG) 100 UNIT/ML VIAL SQ SCH ×4 (00:16→06:10)
[2020-07-01 03:59] LABS: Anisocytosis Slight; Basophils % (A) 0 %; Eosinophils # (A) 0.1 k/uL (0-0.7); Eosinophils % (A) 1 %; HCT 33.7 % (39.0-53.0); HGB 10.6 gm/dL (13.0-17.5); Lymphocytes # (A) 0.5 k/uL (1.0-4.8); Lymphocytes % (A) 4 %; MCH 31.3 pg (25.0-35.0); MCHC 31.5 g/dL (31.0-37.0); MCV 99.3 fL (80.0-100.0); Macrocytosis Slight; Mean Platelet Volume 8.9; Monocytes # (A) 0.6 k/uL (0-1.0); Monocytes % (A) 5 %; Neutrophils # (A) 10.9 k/uL (1.3-7.7); Neutrophils % (A) 89 %; Platelet Count 132 k/uL (150-450); RBC 3.39 m/uL (4.30-5.90); RDW 16.3 % (11.5-15.5); WBC 12.2 k/uL (3.8-10.6)
[2020-07-01 04:11] LABS: Albumin 2.4 g/dL (3.5-5.0); Calcium 7.6 mg/dL (8.4-10.2); Total Protein 5.8 g/dL (6.3-8.2)
[2020-07-01 04:35] LABS: Potassium 4.8 mmol/L (3.5-5.1)
[2020-07-01 04:53] LABS: ABG Base Excess 0.2 mmol/L; ABG HCO3 24 mmol/L (21-25); ABG Oxygen Saturation 97.2 % (94-97); ABG PCO2 33 mmHg (35-45); ABG PH 7.47 (7.35-7.45); ABG PO2 100 mmHg (83-108); ABG TCO2 25 mmol/L (19-24)
[2020-07-01 05:27] LABS: Allen Test Performed? no
[2020-07-01 06:04] LABS: Glucose,Whole Blood 134 mg/dL (75-99)
[2020-07-01] MEDS: CALCIUM ACETATE 667 MG TAB PO SCH (06:10)
[2020-07-01] MEDS: LEVOTHYROXINE 50 MCG TAB PO SCH (06:10)
--- NOTE | 2020-07-01 07:11 | XR ---
EXAMINATION TYPE: XR chest 1V portable DATE OF EXAM: 07/01/2020 COMPARISON: 06/30/2020 HISTORY: SOB, Follow Up FINDINGS: Indwelling tubes and catheters are unchanged. Progressive infiltrates throughout both lung ruiz. Correlate for pneumonia. Underlying congestive f ailure is also a consideration. Stable appearance of the cardio-mediastinal structures at this time. Pleural effusion appear to have increased. IMPRESSION: 1. Progressive infiltrates throughout both lung ruiz. Correlate for pneumonia. Underlying congesti ve failure is also a consideration. Clinical correlation and follow up until resolution is recommend ed.
[2020-07-01] MEDS: NOREPINEPHRINE 32 MG in SODIUM CHLORIDE 0.9% 218 ML IV SCH (07:17)
[2020-07-01] MEDS: ASPIRIN 81 MG PO SCH (08:18)
[2020-07-01] MEDS: CLOPIDOGREL 75 MG TAB PO SCH (08:18)
[2020-07-01] MEDS: ATORVASTATIN 40 MG TAB PO SCH (08:18)
[2020-07-01] MEDS: AMIODARONE 200 MG TAB PO SCH (08:18)
[2020-07-01] MEDS: HEPARIN SODIUM,PORCINE 5,000 UNIT/ML 1 ML VIAL SQ SCH (08:18)
[2020-07-01] MEDS: PANTOPRAZOLE 40 MG/10 ML VIAL IVP SCH (08:18)
[2020-07-01] MEDS: CHLORHEXIDINE GLUCONATE 15 ML CUP MUCOUS MEM SCH (08:19)
[2020-07-01] MEDS: CEFEPIME 1 GM in SODIUM CHLORIDE 0.9% 50 ML IVPB SCH (08:19)
[2020-07-01 08:30] VITALS: TEMP 97.9
[2020-07-01] MEDS ORDERED: MORPHINE SULFATE 4 MG/ML SYRINGE IV PRN (10:44)
[2020-07-01] MEDS ORDERED: ATROPINE OPHTH SOLN 1% 5ML BTL SUBLINGUAL PRN (10:44)
[2020-07-01] MEDS ORDERED: MORPHINE SULFATE 2 MG/ML SYRINGE IV PRN (10:44)
[2020-07-01] MEDS ORDERED: SCOPOLAMINE 1.5MG/72HR PATCH TRANSDERM SCH (10:45)
[2020-07-01] MEDS ORDERED: MORPHINE SULFATE (100 MG/2 ML) 100 MG in SODIUM CHLORIDE 0.9% 100 ML IV SCH (11:00)
[2020-07-01] MEDS: LORazepam 2 MG/ML INJ IV PRN (12:10)
[2020-07-01 13:58] VITALS: BP 93/56; PULSE 94; RESP 35
--- NOTE | 2020-07-01 15:13 | P.PN ---
Subjective Progress Note Date: 07/01/20 Principal diagnosis: Acute hypoxic respiratory failure secondary to pulmonary edema and acute on chronic systolic congestive heart failure 65-year-old male patient who came into the hospital because of an acute chest pain. Unstable angina was suspected as the patient has known history of cardiac disease and coronary artery disease and the patient underwent a recent coronary intervention and stenting of the RCA by Dr. Cordero and this was done on 06/15/2020. Note that post cardiac catheterization the patient also had a brief cardiopulmonary arrest with a PEA rhythm and the patient was resuscitated successfully without any signs of anoxic encephalopathy and the patient was discharged home. Noted the patient had developed carotid myopathy and there was a drop in the patient's left and ejection fraction of 25%. This was not explained on the basis of coronary artery disease and expect cause for his drop in the LV has not been established. The patient is known to have CAD and he has undergone previous bypass surgery. His MCDERMOTT to LAD and this was done 2000. He has undergone previous stenting to the circumflex on previous evaluations. Note that during this current admission, the patient had chest pain. Cardiac enzymes were essentially downtrending from recent NC and the troponin was noted to 0.7. The patient was taken to catheterization and the patient was found to have a patent MCDERMOTT to LAD, patent stent in the RCA. No acute intervention was done. The patient had a right coronary system with a mid 40% stenosis distal to the stent. There was mild disease in the PDA and PLV. Circumflex system was percent occluded. The pulmonary capillary wedge pressure was 38. PA pressures were 76/31. Cardiac output was at 3.88. Following that, the patient was sent to the intensive care unit. Once in ICU, the patient was found to be in acute respiratory distress. He was severely hypoxic and he was becoming more unresponsive and he was breathing in the high 40s. At that point, the patient was intubated and placed on mechanical ventilation. Post intubation, the patient became profoundly hypotensive and the patient is currently requiring high-dose pressors for hemodynamic support. The patient currently is an assist- control mode of ventilation at the rate of 18 with a tidal volume of 500 and FiO2 of 40% with a PEEP of 5. Norepinephrine infusion is running at 0.5 g per KG per minute. The patient is sedated with propofol at 50 mg per KG per minute. IV fluids are currently at KVO. The MOISÉS was done today and the patient had evidence of global hypokinesis with an ejection fraction of 25-30%. The aortic valve was bioprosthetic and a peak gradient across the aortic valve was 60 with a mean gradient of 30 mmHg. There was moderate to severe mitral regurgitation and moderate tricuspid regurgitation and the right ventricular systolic pressure was estimated to be 48. There was dilatation of the r left atrium along with mild aortic regurgitation at the level of the bioprosthetic aortic valve and moderate severe mitral regurgitation and mild pulmonary hypertension. No evidence of any [id number] shunting and there was no evidence of any pericardial effusion. Note that overnight, nephrology was consulted and the patient was given a session of dialysis today total of 2 L of ultrafiltration per chest x-ray still showing evidence of CHF and cardiomegaly and pulmonary edema. On 06/26/2020 the patient is being seen for a follow-up. He remains sedated on propofol at 45 g. Remains in cardiogenic shock and the patient is still hy potensive requiring pressors and the patient is on an norepinephrine infusion running at 0.31mcg/kg per minute. IV fluids are still at KVO. The patient underwent hemodialysis yesterday and a second session will be done today with ultrafiltration. He continues to have edema in the lower extremities and the chest x-ray still showing pulmonary edema with cardiomegaly. Nevertheless, the oxygenation itself is improved and the patient is currently on assist control mode at the rate of 60 with either volume of 500 and FiO2 of 40% with a PEEP of 5. The blood gases showed a pH of 7.45 with a pCO2 of 34 and pO2 of 94. The patient will be started on enteral feeding for nutritional support. No fever. He doesn't produce a whole lot of urine output. Hemoglobin is at 12.5. The patient also has a BUN of 54 with a creatinine of 6.8. Calcium level is at 7.3. Discussed the case with nephrology in regards to proceed with another session of hemodialysis today. 06/27/2020, the patient remains sedated on a mechanical ventilator. The patient remains hypotensive requiring pressors although at the lower dose. Norepinephrine infusion is running at 0.4 mg per KG per minute. The patient is sedated with propofol with running at 40 g per KG per minute. IV fluids are at KVO. The patient underwent hemodialysis yesterday with a total of 2.5 L of fluid was removed. Another session of hemodialysis to be done today. Nevertheless, the chest x-ray still showing pulmonary edema and cardiomegaly. There is still edema in lower extremities bilaterally. Another session of hemodialysis to follow today. The patient remains on a mechanical ventilator. The patient is an assist-control mode at the rate of 60 with a tidal volume of 500 and FiO2 of 40% with a PEEP of 5. The patient's blood gases from today shows a pH of 7.4 with a pCO2 of 34 and pO2 95. White cell count at 16. Hemoglobin was at 12.4.. The patient is a creatinine of 6.3 with a BUN of 50. Urine output is minimal at this point in time. The patient was also started enteral feeding for nutritional support. IV antibiotics with empiric coverage will be started with IV cefepime. Patient was reevaluated today on 06/28/20, remains in the ICU, intubated, sedated, on mechanical ventilation. Patient is on assist control rate of 16 volume is 500 FiO2 is 40% PEEP is 5. ABG showed a pO2 of 84 pCO2 of 33 pH of 7.43. Patient is unresponsive to deep painful stimuli. Chest x-ray continues to show evidence of pulmonary edema. Patient is on norepinephrine at 0.38 mcg/kg/m, he is on propofol at 15 which I recommended to placed on hold. Patient is also on enteral feeding/MOPP pro at 17 mL per hour. Patient was intubated on the . He has a left subclavian central line, and a left radial arterial line. Patient did not tolerate hemodialysis today. Still requiring significant pressors for hemodynamic support. Not quite ready for weaning, however I have instructed that we hold propofol, addressed mental status, and if no responses, patient will have to go for a CT of the brain. WBC count today 16.5 hemoglobin is 12.2 electrolytes are normal ABG showed a pO2 of 84 pCO2 of 33 pH of 7.43. BUN is 50 creatinine 6.38. Chest x-ray continues to show evidence of pulmonary edema. Reevaluated today on 06/29/20, patient remains in the ICU, intubated and mechanically ventilated. Patient may be dialyzed today, chest x-ray clearly shows evidence of worsening pulmonary edema. Ventilator settings are assist control rate 16, tidal volume is 500 FiO2 is 40% PEEP is 5. ABG showed a pO2 of 91 pCO2 of 33 pH of 7.43. Patient remains on norepinephrine at 54 mcg/m, he is on propofol at 35 mcg/kg/m, she is also on amiodarone 0.5 g per hour. Patient is supposed to receive dialysis today. His CODE STATUS was changed last night to DO NOT RESUSCITATE as per his . Patient remains on enteral feeding, receiving Nepro. Supposed to have dialysis and 2 L to be removed likely today. Chest x-ray is concerning as it shows worsening pulmonary edema. I believe he count today is 13.8 hemoglobin is 11.4. Electrolytes are normal BUN is 62 creatinine 7.43 Reevaluated today on 06/30/20, patient remains in the ICU, intubated and mechanically ventilated. His ventilator settings are assist control rate of 16 tidal volume is 500 FiO2 is 40%, PEEP is 5. ABG today showed a pO2 of 80 pCO2 of 35 pH of 7.42. Chest x-ray has shown improvement mostly because the patient had adequate hemodialysis yesterday and ultrafiltration, his pulmonary edema seems to be better on the chest x-ray today compared to yesterday. And this is being reflected on his ABG. Patient remains on norepinephrine at 0.39 mcg/kg/m, propofol 55 mcg/kg/m, IV fluid is at KVO, I went ahead today and I added Dobutrex for inotropic support, hoping that we could cut down on the norepinephrine dose. May even have to consider vasopressin for low blood pressure. Patient remains on TPN, and that seems to be fairly well tolerated. Mentation is to be assessed today, hence I have recommended and instructed that would hold propofol, and at least get an adequate assessment of mental status. Electrolytes are normal BUN is 57 creatinine 6.24. WBC count is 14 hemoglobin is 10.9. Patient was reevaluated today on 07/01/20, patient remains intubated and mechanically ventilated, still on hemodialysis, assist control rate is 16 tidal volume is 500 FiO2 40% PEEP is 5. Chest x-ray continues to show evidence of pulmonary edema. ABG showed a pO2 of 100 pCO2 of 33 pH of 7.47. Patient is on norepinephrine at 0.45 mcg/kg/m, he is also on vasopressin at 0.031 units per minutes, on Dobutrex at 2.5 mcg/kg/m, patient is also on enteral feeding/Nepro, and has been sick off sedation for the last 24 hours, and/or no significant neurological response noted. Hence shortly after I evaluated the patient, discussed his condition with the who requested some input regarding his condition and his prognosis, and I explained to the that the patient has extremely poor prognosis, he has multisystem organ failure, and the chances of recovery from this is extremely poor, and mortality is extremely high. Not to mention the quality of life is very poor quality of life if he is to make control of this. His basically requested that we proceed with comfort care measures, and she will discuss it with the rest of her family members. Objective - Vital Signs Vital signs: Vital Signs Temp 97.9 F 07/01/20 08:00 Pulse 94 07/01/20 12:00 Resp 35 H 07/01/20 12:00 BP 93/56 07/01/20 12:00 Pulse Ox 98 07/01/20 12:00 Intake & Output 06/30/20 07/01/20 07/01/20 18:59 06:59 18:59 Intake Total 1197.113 882.95 857.877 Output Total 15 2005 0 Balance 1182.113 -1122.05 857.877 Weight 108.454 kg Intake: IV 529 396 215 0.9 390 360 150 Cefepime 1 gm In Sodium 100 50 Chloride 0.9% 50 ml @ 12. 5 mls/hr IVPB Q12HR [facility] Rx#:[id number] pressure bag 39 36 15 Intake, IV Titration 337.113 132.95 502.877 Amount DOBUTamine DRIP 500 mg In 207.737 Dextrose/Water 1 250ml. bag @ 2.5 MCG/KG/MIN 7. 995 mls/hr IV .Q24H [facility] Rx#:[id number] Morphine Sulfate (100 mg/ 0.561 2 ml) 100 mg In Sodium Chloride 0.9% 100 ml @ 1 MG/HR 1.02 mls/hr IV . Q24H [facility] Rx#:[id number] Norepinephrine 32 mg In 281.678 132.95 294.579 Sodium Chloride 0.9% 218 ml @ 0.5 MCG/KG/MIN 25. 992 mls/hr IV .Q9H38M [facility] Rx#:[id number] propofoL 1,000 mg In 55.435 Empty Bag 1 bag @ Titrate IV .Q0M [facility] Rx#: [id number] Tube Feeding 271 264 110 Other 60 90 30 Output: Urine 15 5 0 Hemodialysis 1999 Other: Voiding Method Indwelling Catheter Indwelling Catheter Indwelling Catheter # Voids 0 ABP, PAP, CO, CI - Last Documented Arterial Blood Pressure 80/46 - Exam General Appearance: 65-year-old male obese, intubated and mechanically ventilated, off sedation HEENT: Atraumatic, normocephalic, PERRLA, EOMI, no icterus, no neck masses, no JVD. Lungs: Crackles at the bases bilaterally. Chest Wall: Symmetrical expansion. Heart: Irregular irregular rhythm, 2/6 systolic murmur thought the precordium. Positive JVD. Abdomen: Obese, Soft, non-tender, normal bowel sounds. Nontender. No rebound no guarding Extremities: Trace of bipedal edema, decreased pulses bilaterally.. Skin: No rashes. Normal skin turgor. Neurologic: Patient is off sedation, does not respond to any verbal or any painful stimuli. Psychiatric: Could not assess. - Labs CBC & Chem 7: 07/01/20 03:40 07/01/20 03:40 Labs: Abnormal Lab Results - Last 24 Hours (Table) 06/30/20 06/30/20 06/30/20 Range/Units 17:41 19:43 23:49 WBC (3.8-10.6) k/uL RBC (4.30-5.90) m/uL Hgb (13.0-17.5) gm/dL Hct (39.0-53.0) % RDW (11.5-15.5) % Plt Count (150-450) k/uL Neutrophils # (1.3-7.7) k/uL Lymphocytes # (1.0-4.8) k/uL ABG pH (7.35-7.45) ABG pCO2 (35-45) mmHg ABG Total CO2 (19-24) mmol/L ABG O2 Saturation (94-97) % Sodium (137-145) mmol/L BUN (9-20) mg/dL Creatinine (0.66-1.25) mg/dL Glucose (74-99) mg/dL POC Glucose (mg/dL) 166 H 195 H 129 H (75-99) mg/dL Calcium (8.4-10.2) mg/dL Total Protein (6.3-8.2) g/dL Albumin (3.5-5.0) g/dL 07/01/20 07/01/20 07/01/20 Range/Units 03:40 03:40 04:52 WBC 12.2 H (3.8-10.6) k/uL RBC 3.39 L (4.30-5.90) m/uL Hgb 10.6 L (13.0-17.5) gm/dL Hct 33.7 L (39.0-53.0) % RDW 16.3 H (11.5-15.5) % Plt Count 132 L (150-450) k/uL Neutrophils # 10.9 H (1.3-7.7) k/uL Lymphocytes # 0.5 L (1.0-4.8) k/uL ABG pH 7.47 H (7.35-7.45) ABG pCO2 33 L (35-45) mmHg ABG Total CO2 25 H (19-24) mmol/L ABG O2 Saturation 97.2 H (94-97) % Sodium 133 L (137-145) mmol/L BUN 52 H (9-20) mg/dL Creatinine 5.54 H (0.66-1.25) mg/dL Glucose 126 H (74-99) mg/dL POC Glucose (mg/dL) (75-99) mg/dL Calcium 7.6 L (8.4-10.2) mg/dL Total Protein 5.8 L (6.3-8.2) g/dL Albumin 2.4 L (3.5-5.0) g/dL 07/01/20 Range/Units 06:02 WBC (3.8-10.6) k/uL RBC (4.30-5.90) m/uL Hgb (13.0-17.5) gm/dL Hct (39.0-53.0) % RDW (11.5-15.5) % Plt Count (150-450) k/uL Neutrophils # (1.3-7.7) k/uL Lymphocytes # (1.0-4.8) k/uL ABG pH (7.35-7.45) ABG pCO2 (35-45) mmHg ABG Total CO2 (19-24) mmol/L ABG O2 Saturation (94-97) % Sodium (137-145) mmol/L BUN (9-20) mg/dL Creatinine (0.66-1.25) mg/dL Glucose (74-99) mg/dL POC Glucose (mg/dL) 134 H (75-99) mg/dL Calcium (8.4-10.2) mg/dL Total Protein (6.3-8.2) g/dL Albumin (3.5-5.0) g/dL Assessment and Plan Assessment: Impression: Acute hypoxic respiratory failure secondary to acute on chronic systolic congestive heart failure and pulmonary edema. Cardiogenic shock requiring vasopressors. End-stage renal disease, requiring hemodialysis. Recent non-ST elevation myocardial infarction and angioplasty with stent placement Severe ischemic cardiomyopathy and LV dysfunction. Pulmonary hypertension. Insulin-dependent diabetes. History of aortic valve replacement for significant aortic stenosis. Dyslipidemia. Patent foramen ovale with [id number] shunt. Diabetic peripheral neuropathy. Recommendation: After evaluating the patient, going over his chart, x-rays, labs, ABG, ventilator settings, I called the , and updated the on his condition, and clearly explained to the that prognosis is extremely poor and guarded, and at this point choosing comfort care measures is not a bad idea, and his prognosis is extremely poor. And chances of pulling through this is nil. Even if he does, the quality of life would be extremely poor quality. clearly stated that she would like to see him pass in [place] comfort and dignity, and would like to proceed with comfort care measures. And this would be done and arranged for with the nurses taking care of the patient. Critical care time is over 30 minutes. Including the time discussed the patient's condition with the Time with Patient: Greater than 30
--- NOTE | 2020-07-01 15:36 | P.PN ---
Subjective Progress Note Date: 07/01/20 HISTORY OF PRESENT ILLNESS 65-year-old male one of my office patient with past medical history of end-stage renal disease Advanced cardiomyopathy, history of diabetes, systolic congestive heart failure, pulmonary hypertension, and multiple other medical problem who is known to have history of coronary disease with MCDERMOTT to the LAD in 2000 and stenting of the circumflex in 2018 recent stenting of the RCA and 06/15/2020 with cardiac arrest after heart catheter on 06-15 with PEA, aortic valve placement back in 2014 at [facility]. Patient left the hospital 2 days ago after long hospitalization for his intubation mechanical ventilation after his cardiac arrest from his heart catheter ended up on mechanical ventilation and vasopressor for many days finally was extubated successfully and done well was taking of vasopressor his hemoglobin was low patient continued having slight chest pain but with controlled with medication. 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 Rivera finding of unchanged coronary artery disease compared to the heart cath and 06/15/2020 with patent RCA, 85 percentile mid LAD stenosis with patent MCDERMOTT to the LAD and known 100% occlusion of the circumflex, patient cardiac output remained 3.9 L/m increased right to left sided pressure, group 2 pulmonary hypertension with pressure over 55 mmHg, also had significant abnormality in the aortic valve with difficult crossing which can be consistent with severe stenosis. Patient finishes procedure successfully was transferred to the ICU for symptoms control his ejection fraction remain less than 25%. 06/25: Patient was discharged to ICU on BiPAP but desatted during the night and became hypotensive. He required intubation and remains on mechanical ventilation with tidal volume 500, FiO2 40, PEEP of 5. Patient is also on norepinephrine. He has been afebrile, heart rate 92, blood pressure 111/65, pulse ox 99% pals specialist is a sinus rhythm. Repeat chest x-ray this morning reveals no large pneumothorax. Diffuse infiltrates and small right pleural effusion similar to earlier exam. Patient had hemodialysis this morning with removal of 2.5 liters. Repeat blood work reveals WBC 17.3, hemoglobin 12.6. Sodium 132, potassium 4.5, chloride 96, CO2 23, BUN 33 and creatinine 4.61. Blood sugar 158. 06/26: Patient remains intubated with tidal volume 500, FiO2 40, PEEP of 5. Patient is also on high-dose norepinephrine and maxed onto per Van. Repeat chest x-ray reveals progressive airspace infiltrates throughout both lung ruiz small effusion suspected. He is scheduled for repeat hemodialysis today. MOISÉS revealed dilated left atrium with normal appearance of the left atrial appendage. Severe global hypokinesia. Bioprosthetic aortic valve with evidence of mild aortic regurgitation, severe aortic regurgitation with gradient of 30 mmHg with peak of 60 mmHg. Moderate to severe mitral regurgitation with moderate tricuspid regurgitation. Mild pulmonary hypertension. Evidence of patent foramen ovale with predominantly [id number] shunting. No pericardial effusion. 06/27: Patient remains intubated and on mechanical ventilation with tidal volume 500, FiO2 40, PEEP of 5. He also remains on propofol and norepinephrine. Blood pressure 103/46, heart rate 80, afebrile. Repeat lab work reveals a BB 616, hemoglobin 12.4, platelet count 210. Sodium 136, potassium 4.9, chloride 102, CO2 20, BUN 15 creatinine 6.32. Patient is scheduled for hemodialysis today with plan to remove 3 L. 06/28: Patient remains in the intensive care unit on mechanical ventilation with tidal volume 500, FiO2 40, PEEP of 5. Patient is also on propofol and norepinephrine. Patient had runs of V. tach this morning while he was on hemodialysis and this had to be discontinued. He has been afebrile, heart rate 84, blood pressure 109/44, pulse ox 97% on mechanical ventilation. Repeat blood work reveals WBC 16.5, hemoglobin 12.2. Electrolytes normal, BUN 15 creatinine 6.38. Blood sugars running in the 200s and 4 units of NovoLog scheduled added. Plan is to call patient's and updated her regarding his current situation. 06/29: Patient remains intubated and on mechanical ventilation with pulse ox of 99%, tidal volume 500, FiO2 40, PEEP of 5. He has been afebrile, heart rate 73, blood pressure 122/52. pals specialist is a sinus rhythm with occasional PVCs. Patient is undergoing hemodialysis today with plan for removal of 2 L of fluid. Repeat chest x-ray reveals continued cardiomegaly, right greater than left diffuse airspace disease and likely underlying effusions. Correlate for heart failure with pulmonary edema slightly worsened. CAT scan of the brain showed mild atrophy. No acute intracranial abnormality. No change. WBC 13.8, hemoglobin 11.4. Electrolytes normal, BUN 62, creatinine 7.43. The patient's has made him a no CODE STATUS. The patient is on oral tube feedings with Nepro. 06/30: Patient remains intubated and on mechanical ventilation. He is off sedation for an hour and a half and is not responding. Dobutamine drip to be started, he is currently on norepinephrine. Vent settings are tidal volume 500, FiO2 40, PEEP of 5. Patient is scheduled for dialysis today. Repeat chest x- ray is stable. He has been afebrile, heart rate 80, blood pressure 138/60, pulse ox 96%. 07/01: Patient was doing very poorly, prognosis is extremely guarded, comfort measures were discussed with family per legal executive assistant, and have proceeded with comfort care measures. Patient will be been weaned off the vent REVIEW OF SYSTEMS Unable to obtain due to intubation. Objective - Vital Signs Vital signs: Vital Signs Temp 97.9 F 07/01/20 08:00 Pulse 86 07/01/20 11:30 Resp 27 H 07/01/20 11:30 BP 111/60 07/01/20 04:30 Pulse Ox 97 07/01/20 11:30 Intake & Output 06/30/20 07/01/20 07/01/20 18:59 06:59 18:59 Intake Total 1197.113 882.95 567.096 Output Total 15 2005 0 Balance 1182.113 -1122.05 567.096 Weight 108.454 kg Intake: IV 529 396 215 0.9 390 360 150 Cefepime 1 gm In Sodium 100 50 Chloride 0.9% 50 ml @ 12. 5 mls/hr IVPB Q12HR MOMO Rx#:[id number] pressure bag 39 36 15 Intake, IV Titration 337.113 132.95 212.096 Amount Norepinephrine 32 mg In 281.678 132.95 212.096 Sodium Chloride 0.9% 218 ml @ 0.5 MCG/KG/MIN 25. 992 mls/hr IV .Q9H38M MOMO Rx#:[id number] propofoL 1,000 mg In 55.435 Empty Bag 1 bag @ Titrate IV .Q0M MOMO Rx#: [id number] Tube Feeding 271 264 110 Other 60 90 30 Output: Urine 15 5 0 Hemodialysis 1999 Other: Voiding Method Indwelling Catheter Indwelling Catheter Indwelling Catheter # Voids 0 ABP, PAP, CO, CI - Last Documented Arterial Blood Pressure 86/43 - Constitutional General appearance: Present: mild distress - Respiratory Respiratory: right: diminished, rales - Cardiovascular Rhythm: regular Abnormal Heart Sounds: Present: systolic murmur - Labs CBC & Chem 7: 07/01/20 03:40 07/01/20 03:40 Labs: Abnormal Lab Results - Last 24 Hours (Table) 06/30/20 06/30/20 06/30/20 Range/Units 17:41 19:43 23:49 WBC (3.8-10.6) k/uL RBC (4.30-5.90) m/uL Hgb (13.0-17.5) gm/dL Hct (39.0-53.0) % RDW (11.5-15.5) % Plt Count (150-450) k/uL Neutrophils # (1.3-7.7) k/uL Lymphocytes # (1.0-4.8) k/uL ABG pH (7.35-7.45) ABG pCO2 (35-45) mmHg ABG Total CO2 (19-24) mmol/L ABG O2 Saturation (94-97) % Sodium (137-145) mmol/L BUN (9-20) mg/dL Creatinine (0.66-1.25) mg/dL Glucose (74-99) mg/dL POC Glucose (mg/dL) 166 H 195 H 129 H (75-99) mg/dL Calcium (8.4-10.2) mg/dL Total Protein (6.3-8.2) g/dL Albumin (3.5-5.0) g/dL 07/01/20 07/01/20 07/01/20 Range/Units 03:40 03:40 04:52 WBC 12.2 H (3.8-10.6) k/uL RBC 3.39 L (4.30-5.90) m/uL Hgb 10.6 L (13.0-17.5) gm/dL Hct 33.7 L (39.0-53.0) % RDW 16.3 H (11.5-15.5) % Plt Count 132 L (150-450) k/uL Neutrophils # 10.9 H (1.3-7.7) k/uL Lymphocytes # 0.5 L (1.0-4.8) k/uL ABG pH 7.47 H (7.35-7.45) ABG pCO2 33 L (35-45) mmHg ABG Total CO2 25 H (19-24) mmol/L ABG O2 Saturation 97.2 H (94-97) % Sodium 133 L (137-145) mmol/L BUN 52 H (9-20) mg/dL Creatinine 5.54 H (0.66-1.25) mg/dL Glucose 126 H (74-99) mg/dL POC Glucose (mg/dL) (75-99) mg/dL Calcium 7.6 L (8.4-10.2) mg/dL Total Protein 5.8 L (6.3-8.2) g/dL Albumin 2.4 L (3.5-5.0) g/dL 07/01/20 Range/Units 06:02 WBC (3.8-10.6) k/uL RBC (4.30-5.90) m/uL Hgb (13.0-17.5) gm/dL Hct (39.0-53.0) % RDW (11.5-15.5) % Plt Count (150-450) k/uL Neutrophils # (1.3-7.7) k/uL Lymphocytes # (1.0-4.8) k/uL ABG pH (7.35-7.45) ABG pCO2 (35-45) mmHg ABG Total CO2 (19-24) mmol/L ABG O2 Saturation (94-97) % Sodium (137-145) mmol/L BUN (9-20) mg/dL Creatinine (0.66-1.25) mg/dL Glucose (74-99) mg/dL POC Glucose (mg/dL) 134 H (75-99) mg/dL Calcium (8.4-10.2) mg/dL Total Protein (6.3-8.2) g/dL Albumin (3.5-5.0) g/dL Assessment and Plan Plan: ASSESSMENT AND PLAN 1 unstable angina and recurrent chest pain with recent history of myocardial infarction as non-ST ND post angioplasty and stent placement patient continued to be symptomatic at this point patient was admitted to the hospital, heart catheter was performed no change from last time significant finding with multiple coronary a disease along with angioplasty. Continue aspirin, atorvastatin, Plavix, Lopressor on hold due to hypotension. 2 acute hypoxic respiratory failure requiring intubation and mechanical ventilat ion secondary to pulmonary edema, acute on chronic systolic heart failure. Pulmonary medicine on consult. 3 cardiogenic shock requiring vasopressors. Patient managed in the intensive care unit. Patient is currently on norepinephrine and dobutamine drip starting today. 4 end-stage renal disease on hemodialysis 3 times a week. Hemodialysis today. 5 severe ischemic cardiomyopathy with significantly low ejection fraction and chronic systolic heart failure: Continue medical management and continue to mobilize free fluid consult. 6 pulmonary hypertension on medical management currently. 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 Patient started on insulin scale every 6 hours and 4 units scheduled every 6, Levemir 15 units at bedtime. 8 post aortic valve placement with significant stenosis finding on heart cath patient might need transesophageal echocardiogram for better view of the aortic valve structure. 9 no history of atrial fibrillation per cardiology. 10 hyperlipidemia: Remain on atorvastatin. 11 BPH. Alberts catheter in place. 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 13 GI prophylaxis: Protonix daily. 14 DVT prophylaxis: Will be on anticoagulation. 15. Episodes of ventricular tachycardia while on dialysis. Dialysis treatment was discontinued. CODE STATUS: Full code. Patient 07/01/2020, critical illness NONSTEMI, ISCHEMIC CARDIOMYOPATHY cardiogenic shock with comfort measures in place DISCHARGE PLAN To be determined.
== END 2020-07-01 18:19 | disposition expired ==
LOC: EC 17:20 → 2SICU 18:49
PROVIDERS: ADMIT Family Medicine; ATTEND Family Medicine
PROC: 5A09357 Assistance with Respiratory Ventilation, Less than 24 Consecutive Hours, Continuous Positive Airway Pressure (ICD-10-PCS; 2020-06-24)
PROC: 4A023N8 Measurement of Cardiac Sampling and Pressure, Bilateral, Percutaneous Approach (ICD-10-PCS; principal; 2020-06-24 18:57)
PROC: B2111ZZ Fluoroscopy of Multiple Coronary Arteries using Low Osmolar Contrast (ICD-10-PCS; principal; 2020-06-24 18:57)
PROC: 0BH17EZ Insertion of Endotracheal Airway into Trachea, Via Natural or Artificial Opening (ICD-10-PCS; 2020-06-25)
PROC: 5A1955Z Respiratory Ventilation, Greater than 96 Consecutive Hours (ICD-10-PCS; 2020-06-25)
PROC: 02HV33Z Insertion of Infusion Device into Superior Vena Cava, Percutaneous Approach (ICD-10-PCS; 2020-06-25)
PROC: 3E033XZ Introduction of Vasopressor into Peripheral Vein, Percutaneous Approach (ICD-10-PCS; 2020-06-26)
PROC: 5A1D70Z Performance of Urinary Filtration, Intermittent, Less than 6 Hours Per Day (ICD-10-PCS; 2020-06-26)
PROC: 0DH67UZ Insertion of Feeding Device into Stomach, Via Natural or Artificial Opening (ICD-10-PCS; 2020-06-30)
PROC: 3E0G76Z Introduction of Nutritional Substance into Upper GI, Via Natural or Artificial Opening (ICD-10-PCS; 2020-06-30)
DX: I22.2 Subsequent non-ST elevation (NSTEMI) myocardial infarction (principal); N18.6 End stage renal disease; I50.23 Acute on chronic systolic (congestive) heart failure; J96.21 Acute and chronic respiratory failure with hypoxia; T82.855A Stenosis of coronary artery stent, initial encounter; I13.2 Hypertensive heart and chronic kidney disease with heart failure and with stage 5 chronic kidney disease, or end stage renal disease; J81.1 Chronic pulmonary edema; E27.40 Unspecified adrenocortical insufficiency; Q21.1 Atrial septal defect; E87.1 Hypo-osmolality and hyponatremia; I47.2 Ventricular tachycardia; T81.31XA Disruption of external operation (surgical) wound, not elsewhere classified, initial encounter; I21.4 Non-ST elevation (NSTEMI) myocardial infarction; R57.0 Cardiogenic shock; Z66 Do not resuscitate; Z51.5 Encounter for palliative care; I25.110 Atherosclerotic heart disease of native coronary artery with unstable angina pectoris; J84.10 Pulmonary fibrosis, unspecified; Z99.2 Dependence on renal dialysis; Z79.4 Long term (current) use of insulin; E10.22 Type 1 diabetes mellitus with diabetic chronic kidney disease; E10.42 Type 1 diabetes mellitus with diabetic polyneuropathy; I44.7 Left bundle-branch block, unspecified; I25.5 Ischemic cardiomyopathy; M89.8X9 Other specified disorders of bone, unspecified site; I08.3 Combined rheumatic disorders of mitral, aortic and tricuspid valves; N40.0 Benign prostatic hyperplasia without lower urinary tract symptoms; D63.1 Anemia in chronic kidney disease; Z96.1 Presence of intraocular lens; E78.5 Hyperlipidemia, unspecified; M19.90 Unspecified osteoarthritis, unspecified site; M19.041 Primary osteoarthritis, right hand; I27.22 Pulmonary hypertension due to left heart disease; M19.042 Primary osteoarthritis, left hand; I25.2 Old myocardial infarction; Z95.1 Presence of aortocoronary bypass graft; Z95.5 Presence of coronary angioplasty implant and graft; Z96.41 Presence of insulin pump (external) (internal); Z95.3 Presence of xenogenic heart valve; Z88.0 Allergy status to penicillin; Z79.899 Other long term (current) drug therapy; Z79.02 Long term (current) use of antithrombotics/antiplatelets; Z79.890 Hormone replacement therapy; Z86.74 Personal history of sudden cardiac arrest; Z80.51 Family history of malignant neoplasm of kidney; Z79.82 Long term (current) use of aspirin; Z98.42 Cataract extraction status, left eye; Z98.41 Cataract extraction status, right eye; Z98.890 Other specified postprocedural states
CPT/HCPCS: 36415; 70450; 71045; 71046; 80048; 80053; 82533; 82553; 82803; 82805; 83735; 84100; 84484; 85025; 85610; 85730; 86706; 87070; 87205; 87340; 90935; 93005; 93306; 93312; 93320; 93325; 93457; 94002; 94003; 94660; 96365; 96366; 96368; 96375; 96376; 99291